=== PATIENT | male | born 1950 | race Caucasian/White ===

== ENCOUNTER → 2017-12-29 02:49 | Outpatient (CLI) | payer MEDICARE, OTHER, SELFPAY ==
[2017-12-29 09:17] LABS: INR 2.7 (1.0-3.5); Prothrombin Time 25.2 sec (9.3-10.8)
== END ==
PROVIDERS: PCP Emergency Medicine; Visit Provider Emergency Medicine
DX: I48.91 Unspecified atrial fibrillation (principal); Z79.01 Long term (current) use of anticoagulants
CPT/HCPCS: 36415; 85610

== ENCOUNTER 2018-01-27 03:03 | Outpatient (CLI) | payer MEDICARE, SELFPAY ==
[2018-01-27 14:25] LABS: INR 2.7 (1.0-3.5); Prothrombin Time 25.2 sec (9.3-10.8)
== END 2018-01-27 03:23 ==
PROVIDERS: PCP Emergency Medicine; Visit Provider Emergency Medicine
DX: I48.91 Unspecified atrial fibrillation (principal); Z79.01 Long term (current) use of anticoagulants
CPT/HCPCS: 36415; 85610

== ENCOUNTER 2018-02-23 02:39 | Outpatient (CLI) | payer MEDICARE, SELFPAY ==
[2018-02-23 13:58] LABS: INR 2.7 (1.0-3.5); Prothrombin Time 25.2 sec (9.3-10.8)
== END 2018-02-23 02:59 ==
PROVIDERS: PCP Emergency Medicine; Visit Provider Emergency Medicine
DX: I48.91 Unspecified atrial fibrillation (principal); Z79.01 Long term (current) use of anticoagulants
CPT/HCPCS: 36415; 85610

== ENCOUNTER 2018-03-30 01:53 | Outpatient (CLI) | payer MEDICARE, SELFPAY ==
[2018-03-30 10:20] LABS: INR 2.3 (1.0-3.5); Prothrombin Time 21.9 sec (9.3-10.8)
== END 2018-03-30 02:13 ==
PROVIDERS: PCP Emergency Medicine; Visit Provider Emergency Medicine
DX: I48.91 Unspecified atrial fibrillation (principal); Z79.01 Long term (current) use of anticoagulants
CPT/HCPCS: 36415; 85610

== ENCOUNTER 2018-04-27 01:31 | Outpatient (CLI) | payer MEDICARE, SELFPAY ==
[2018-04-27 11:16] LABS: INR 2.9 (1.0-3.5); Prothrombin Time 26.9 sec (9.3-10.8)
== END 2018-04-27 01:51 ==
PROVIDERS: PCP Emergency Medicine; Visit Provider Emergency Medicine
DX: I48.91 Unspecified atrial fibrillation (principal); Z79.01 Long term (current) use of anticoagulants
CPT/HCPCS: 36415; 85610

== ENCOUNTER 2018-05-25 01:40 | Outpatient (CLI) | payer MEDICARE, SELFPAY ==
[2018-05-25 10:54] LABS: INR 2.2 (1.0-3.5); Prothrombin Time 21.7 sec (9.3-11.0)
== END 2018-05-25 02:00 ==
PROVIDERS: PCP Emergency Medicine; Visit Provider Emergency Medicine
DX: I48.91 Unspecified atrial fibrillation (principal); Z79.01 Long term (current) use of anticoagulants
CPT/HCPCS: 36415; 85610

== ENCOUNTER 2018-06-09 11:28 | Outpatient (CLI) | payer MEDICARE, SELFPAY ==
[2018-06-09 13:32] LABS: Hemoglobin A1C 6.7 % (4.5-6.2)
[2018-06-09 13:33] LABS: C-Reactive Protein 0.31 mg/dL (0.0-0.3); TSH 1.78 uIU/mL (0.358-3.74)
== END 2018-06-09 11:48 ==
PROVIDERS: PCP Emergency Medicine; Visit Provider Emergency Medicine
DX: E03.9 Hypothyroidism, unspecified (principal); E11.9 Type 2 diabetes mellitus without complications; G89.29 Other chronic pain
CPT/HCPCS: 36415; 83036; 84443; 86140

== ENCOUNTER 2018-06-23 01:36 | Outpatient (CLI) | payer MEDICARE, SELFPAY ==
[2018-06-23 10:42] LABS: INR 2.4 (0.9-1.1); Prothrombin Time 24.5 sec (9.3-11.0)
== END 2018-06-23 01:56 ==
PROVIDERS: PCP Emergency Medicine; Visit Provider Emergency Medicine
DX: I48.91 Unspecified atrial fibrillation (principal); Z79.01 Long term (current) use of anticoagulants
CPT/HCPCS: 36415; 85610

== ENCOUNTER 2018-08-18 01:49 | Outpatient (CLI) | payer MEDICARE, SELFPAY ==
[2018-08-18 11:47] LABS: INR 2.6 (0.9-1.1); Prothrombin Time 26.3 sec (9.3-11.0)
[2018-08-18 11:58] LABS: Anion Gap 9.3 mmol/L (3-11); BUN 21 mg/dL (7-18); CO2 29.7 mmol/L (21.0-32.0); CREATININE 1.06 mg/dL (0.70-1.30); Calcium 8.9 mg/dL (8.5-10.1); Chloride 101 mmol/L (98-107); Glucose 174 mg/dL (70-100); Potassium 4.7 mmol/L (3.5-5.1); Sodium 140 mmol/L (136-145)
[2018-08-18 12:13] LABS: Hemoglobin A1C 6.7 % (4.5-6.2)
== END 2018-08-18 02:09 ==
PROVIDERS: PCP Emergency Medicine; Visit Provider Emergency Medicine
DX: I48.91 Unspecified atrial fibrillation (principal); Z79.01 Long term (current) use of anticoagulants; I10 Essential (primary) hypertension; E11.9 Type 2 diabetes mellitus without complications
CPT/HCPCS: 36415; 80048; 83036; 85610

== ENCOUNTER 2018-09-15 02:32 | Outpatient (CLI) | payer MEDICARE, SELFPAY ==
[2018-09-15 11:32] LABS: INR 2.8 (0.9-1.1); Prothrombin Time 27.8 sec (9.3-11.0)
== END 2018-09-15 02:52 ==
PROVIDERS: PCP Emergency Medicine; Visit Provider Emergency Medicine
DX: I48.91 Unspecified atrial fibrillation (principal); Z79.01 Long term (current) use of anticoagulants
CPT/HCPCS: 36415; 85610

== ENCOUNTER 2018-10-13 01:04 | Outpatient (CLI) | payer MEDICARE, SELFPAY ==
[2018-10-13 10:09] LABS: INR 2.4 (0.9-1.1); Prothrombin Time 24.2 sec (9.3-11.0)
== END 2018-10-13 01:24 ==
PROVIDERS: PCP Emergency Medicine; Visit Provider Emergency Medicine
DX: I48.91 Unspecified atrial fibrillation (principal); Z79.01 Long term (current) use of anticoagulants
CPT/HCPCS: 36415; 85610

== ENCOUNTER 2018-11-10 01:44 | Outpatient (CLI) | payer MEDICARE, SELFPAY ==
[2018-11-10 10:50] LABS: INR 2.8 (0.9-1.1); Prothrombin Time 28.7 sec (9.3-11.0)
== END 2018-11-10 02:04 ==
PROVIDERS: PCP Emergency Medicine; Visit Provider Emergency Medicine
DX: I48.91 Unspecified atrial fibrillation (principal); Z79.01 Long term (current) use of anticoagulants
CPT/HCPCS: 36415; 85610

== ENCOUNTER 2018-12-08 02:29 | Outpatient (CLI) | payer MEDICARE, SELFPAY ==
[2018-12-08 10:44] LABS: INR 2.1 (0.9-1.1); Prothrombin Time 21.3 sec (9.3-11.0)
== END 2018-12-08 02:49 ==
PROVIDERS: PCP Emergency Medicine; Visit Provider Emergency Medicine
DX: I48.91 Unspecified atrial fibrillation (principal); Z79.01 Long term (current) use of anticoagulants
CPT/HCPCS: 36415; 85610

== ENCOUNTER 2019-01-05 02:16 | Outpatient (CLI) | payer MEDICARE, SELFPAY ==
[2019-01-05 10:30] LABS: INR 2.6 (0.9-1.1); Prothrombin Time 26.6 sec (9.3-11.0)
== END 2019-01-05 02:36 ==
PROVIDERS: PCP Emergency Medicine; Visit Provider Emergency Medicine
DX: I48.91 Unspecified atrial fibrillation (principal); Z79.01 Long term (current) use of anticoagulants
CPT/HCPCS: 36415; 85610

== ENCOUNTER 2019-02-02 00:44 | Outpatient (CLI) | payer MEDICARE, SELFPAY ==
[2019-02-02 12:05] LABS: INR 2.7 (0.9-1.1); Prothrombin Time 27.3 sec (9.3-11.0)
== END 2019-02-02 01:04 ==
PROVIDERS: PCP Emergency Medicine; Visit Provider Emergency Medicine
DX: I48.91 Unspecified atrial fibrillation (principal); Z79.01 Long term (current) use of anticoagulants
CPT/HCPCS: 36415; 85610

== ENCOUNTER 2019-02-17 01:27 | Outpatient (CLI) | payer MEDICARE, SELFPAY ==
[2019-02-17 10:39] LABS: Hemoglobin A1C 6.5 % (4.5-6.2)
[2019-02-17 10:45] LABS: INR 2.5 (0.9-1.1); Prothrombin Time 24.6 sec (9.3-11.0)
[2019-02-17 11:52] LABS: TSH 2.19 uIU/mL (0.36-3.74)
== END 2019-02-17 01:47 ==
PROVIDERS: PCP Emergency Medicine; Visit Provider Emergency Medicine
DX: E03.9 Hypothyroidism, unspecified (principal); E11.9 Type 2 diabetes mellitus without complications; I48.2 Chronic atrial fibrillation; Z79.01 Long term (current) use of anticoagulants
CPT/HCPCS: 36415; 83036; 84443; 85610

== ENCOUNTER 2019-03-16 02:09 | Outpatient (CLI) | payer MEDICARE, SELFPAY ==
[2019-03-16 11:46] LABS: INR 2.4 (0.9-1.1)
== END 2019-03-16 02:29 ==
PROVIDERS: PCP Emergency Medicine; Visit Provider Emergency Medicine
DX: I48.91 Unspecified atrial fibrillation (principal); Z79.01 Long term (current) use of anticoagulants
CPT/HCPCS: 36415; 85610

== ENCOUNTER 2019-04-13 01:53 | Outpatient (CLI) | payer MEDICARE, SELFPAY ==
[2019-04-13 10:50] LABS: INR 3.5 (0.9-1.1); Prothrombin Time 33.8 sec (9.3-11.0)
== END 2019-04-13 02:13 ==
PROVIDERS: PCP Emergency Medicine; Visit Provider Emergency Medicine
DX: I48.91 Unspecified atrial fibrillation (principal); Z79.01 Long term (current) use of anticoagulants
CPT/HCPCS: 36415; 85610

== ENCOUNTER 2019-04-20 01:35 | Outpatient (CLI) | payer MEDICARE, SELFPAY ==
[2019-04-20 11:27] LABS: INR 2.8 (0.9-1.1); Prothrombin Time 27.1 sec (9.3-11.0)
== END 2019-04-20 01:55 ==
PROVIDERS: PCP Emergency Medicine; Visit Provider Emergency Medicine
DX: I48.91 Unspecified atrial fibrillation (principal); Z79.01 Long term (current) use of anticoagulants
CPT/HCPCS: 36415; 85610

== ENCOUNTER 2019-05-18 03:59 | Outpatient (CLI) | payer MEDICARE, SELFPAY ==
[2019-05-18 10:50] LABS: INR 2.6 (0.9-1.1); Prothrombin Time 25.7 sec (9.3-11.0)
== END 2019-05-18 04:19 ==
PROVIDERS: PCP Emergency Medicine; Visit Provider Emergency Medicine
DX: I48.91 Unspecified atrial fibrillation (principal); Z79.01 Long term (current) use of anticoagulants
CPT/HCPCS: 36415; 85610

== ENCOUNTER → 2019-06-04 10:11 | Outpatient (BNVA) | payer MEDICARE, SELFPAY | PROVIDERS: PCP Emergency Medicine; Referring Provider Emergency Medicine; Visit Provider Physical Therapy Assistant | DX: Z12.11 Encounter for screening for malignant neoplasm of colon (principal); Z86.010 Personal history of colon polyps; Z79.01 Long term (current) use of anticoagulants; I48.20 Chronic atrial fibrillation, unspecified; J44.9 Chronic obstructive pulmonary disease, unspecified; E11.9 Type 2 diabetes mellitus without complications; I10 Essential (primary) hypertension; Z79.84 Long term (current) use of oral hypoglycemic drugs; Z87.891 Personal history of nicotine dependence ==

== ENCOUNTER 2019-06-15 01:55 | Outpatient (CLI) | payer MEDICARE, SELFPAY ==
[2019-06-15 11:50] LABS: INR 1.7 (0.9-1.1); Prothrombin Time 17.2 sec (9.3-11.0)
== END 2019-06-15 02:15 ==
PROVIDERS: PCP Emergency Medicine; Visit Provider Emergency Medicine
DX: I48.91 Unspecified atrial fibrillation (principal); Z79.01 Long term (current) use of anticoagulants
CPT/HCPCS: 36415; 85610

== ENCOUNTER 2019-06-18 07:39 | Day surgery (SDC) | payer MEDICARE, SELFPAY ==
[2019-06-18 08:02] VITALS: BP 130/75; PULSE 70; RESP 18; TEMP 36.5; O2SAT 94
[2019-06-18] MEDS: Lactated Ringers 1,000 ML 80 ML IV (08:19)
--- NOTE | 2019-06-18 09:25 | W.COLOREPORT ---
Date of service: 06/18/19 Time of Service: 09:25 Colonoscopy Report Date of procedure: 06/18/19 Pre-op diagnosis general: CRC screen Post-op diagnosis procedure note: other (diverticula ) Procedure: ce Surgeon: Destinee Arabmula Anesthesia proc note operative: GETA Estimated blood loss (mL): 0 Pathology: none sent Complications: None Disposition: same day Prep: Miralax/Dulcolax Procedure Description: After informed consent was obtained the patient was taken to the procedure room and placed in a left decubitous position. Monitors were applied and a time out was done. The patients name, date of , procedure, allergies to medications and metal in their body was reviewed. The patient was then sedated. Once sedated and comfortable a rectal exam was done. External exam was normal. Internal exam revealed a normal sphincter tone and no palpable masses. The prostate not palpable. The scope was then introduced and retrofelexed. no internal hemorrhoids were identified. The scope was then advanced to the cecum w/ out difficulty. The TI and appendiceal orifice were identified. The prep was poor- he still had formed adn thick liquid stool. No gross lesions or lg polyps identified. lesions less than 1cm would have been missed. he does have many lg mouthed diverticula in the left colon. The scope was removed and the patient was woken up and taken back to Same day surgery in stable condition. The patient tolerated the procedure well and there were no immediate complications. Follow up: The patient does not require anymore scopes, unless they develop changes in bowel habits or other new gastrointestinal complaints.
--- NOTE | 2019-06-18 09:34 | W.PM.DSUDISC ---
Discharge Plan Disposition Patient Disposition: HOME Condition: Good Discharge Details Reason For Visit: colon scope Attending Provider: Destinee Arambula Primary Care Provider: Anson Arboleda Home Meds and New Rx's Prescriptions: No Action polyethylene glycol 3350 17 gram/dose powder 238 g PO ONCE Qty: 238 RF: 0 bisacodyl [Dulcolax (bisacodyl)] 5 mg tablet,delayed release (DR/EC) 5 mg PO ONCE Qty: 4 RF: 0 sildenafil [Viagra] 100 MG tablet 1 tab PO PRN RF: 0 omega-3 fatty acids-fish oil 1 EACH capsule 1 cap PO QPM RF: 0 (DME) blood-glucose meter 1 EACH misc 1 ea Miscellaneous ONCE Qty: 1 RF: 0 (DME) Blood Glucose Test 1 EACH strip 1 ea Miscellaneous DAILY Qty: 100 RF: 4 (DME) lancets 1 EACH misc 1 ea Miscellaneous DAILY Qty: 100 RF: 4 metformin 1,000 mg tablet 1,000 mg PO BID Qty: 180 RF: 3 metoprolol succinate [Toprol XL] 200 mg tablet extended release 24 hr 200 mg PO DAILY Qty: 90 RF: 4 losartan [Cozaar] 50 mg tablet 50 mg PO DAILY Qty: 90 RF: 3 warfarin [Coumadin] 5 mg tablet 5 mg PO DIRECTED Qty: 100 RF: 6 pravastatin 40 mg tablet 40 mg PO DAILY Qty: 90 RF: 3 duloxetine 60 mg capsule,delayed release(DR/EC) 60 mg PO DAILY Qty: 90 RF: 4 levothyroxine [Synthroid] 25 mcg tablet 25 mcg PO DAILY Qty: 90 RF: 3 pregabalin [Lyrica] 200 mg capsule 200 mg PO TID Qty: 270 RF: 3 amitriptyline 25 mg tablet 25 mg PO HS Qty: 90 RF: 3 morphine [MS Contin] 30 mg tablet extended release 30 mg PO Q12H PRN MDD 2 tabs Qty: 60 RF: 0 Discharge Instructions Instructions: Diverticulosis (GEN), Diverticulosis Diet (GEN), High Fiber Diet (GEN) Additional Instructions: Findings: diverticula ok to resume coumadin today Follow up:PCP as needed. Does not need any further scopes Please call if you develop: fevers >101.5 Nausea or Vomiting Abdominal pain that is not transient DAY SURGERY UNIT POST COLONOSCOPY INSTRUCTIONS 1. Because there will be medication in your system for the next 24 hours, you may feel a little sleepy. Your coordination will be affected. Therefore: a. Do not drive or operate dangerous equipment for 24 hours. b. Do not drink alcohol beverages for 24 hours (not even beer). c. Plan to go home and rest for the day. 2. Generally there are no restrictions on your activity after a day or so has gone by, but you may feel a bit fatigued for a few days. 3 After you arrive home you may have a light meal and return to a normal diet as you can tolerate it without feeling sick to your stomach. 4. After surgery, you may feel pain or discomfort. This should be only transient, but if it persists please contact your doctor. 5. If there are any questions regarding the findings of your procedure, please feel free to contact your doctor. 6. If you are unable to contact your doctor with a problem, contact the hospital at [phone]. 7. Continue all your regular medications unless directed otherwise. I understand the above instructions and have no questions. Signature of Patient or Responsible Adult Escort Date/Time Name of Responsible Adult Escort Signature of Nurse Date/Time Activity:: No heavy lifting over 20 pounds or strenuous activity x24 hours Diet:: Small light meals x24 hours Discharge Orders Discharge Orders: Discharge Order (Routine); Ordered 06/18/19 Ordered By: Destinee Arambula DS: Diagnosis Discharge Diagnosis (1) Diverticula of colon: Status: Acute
[2019-06-18 10:14] VITALS: BP 105/69; PULSE 63; RESP 18; TEMP 36.3; O2SAT 94
== END 2019-06-18 10:33 | disposition home or self-care (01) ==
PROVIDERS: PCP Emergency Medicine; Visit Provider Surgery
PROC: 0DJD8ZZ Inspection of Lower Intestinal Tract, Via Natural or Artificial Opening Endoscopic (ICD-10-PCS; CPT 45378; principal; 2019-06-18 09:00)
DX: Z12.11 Encounter for screening for malignant neoplasm of colon (principal); Z87.19 Personal history of other diseases of the digestive system; K57.30 Diverticulosis of large intestine without perforation or abscess without bleeding; J44.9 Chronic obstructive pulmonary disease, unspecified; Z11.9 Encounter for screening for infectious and parasitic diseases, unspecified; Z79.84 Long term (current) use of oral hypoglycemic drugs; I10 Essential (primary) hypertension
CPT/HCPCS: G0121; J2001; J2704

== ENCOUNTER 2019-06-25 00:08 | Outpatient (CLI) | payer MEDICARE, SELFPAY ==
[2019-06-25 11:03] LABS: INR 1.9 (0.9-1.1); Prothrombin Time 18.4 sec (9.3-11.0)
== END 2019-06-25 00:28 ==
PROVIDERS: PCP Emergency Medicine; Visit Provider Emergency Medicine
DX: I48.91 Unspecified atrial fibrillation (principal); Z79.01 Long term (current) use of anticoagulants
CPT/HCPCS: 36415; 85610

== ENCOUNTER 2019-07-08 03:12 | Outpatient (CLI) | payer MEDICARE, SELFPAY ==
[2019-07-08 10:21] LABS: INR 2.2 (0.9-1.1); Prothrombin Time 21.4 sec (9.3-11.0)
== END 2019-07-08 03:32 ==
PROVIDERS: PCP Emergency Medicine; Visit Provider Emergency Medicine
DX: I48.91 Unspecified atrial fibrillation (principal); Z79.01 Long term (current) use of anticoagulants
CPT/HCPCS: 36415; 85610

== ENCOUNTER 2019-08-03 01:48 | Outpatient (CLI) | payer MEDICARE, SELFPAY ==
[2019-08-03 11:45] LABS: INR 2.7 (0.9-1.1); Prothrombin Time 26.3 sec (9.3-11.0)
== END 2019-08-03 02:08 ==
PROVIDERS: PCP Emergency Medicine; Visit Provider Emergency Medicine
DX: I48.91 Unspecified atrial fibrillation (principal); Z79.01 Long term (current) use of anticoagulants
CPT/HCPCS: 36415; 85610

== ENCOUNTER 2019-11-30 02:16 | Outpatient (CLI) | payer MEDICARE, SELFPAY ==
[2019-11-30 13:26] LABS: INR 2.8 (0.9-1.1); Prothrombin Time 27.4 sec (9.3-11.0)
== END 2019-11-30 02:36 ==
PROVIDERS: PCP Emergency Medicine; Visit Provider Emergency Medicine
DX: I48.91 Unspecified atrial fibrillation (principal); Z79.01 Long term (current) use of anticoagulants
CPT/HCPCS: 36415; 85610

== ENCOUNTER 2020-01-04 02:31 | Outpatient (CLI) | payer MEDICARE, SELFPAY ==
[2020-01-04 10:36] LABS: INR 2.7 (0.9-1.1); Prothrombin Time 26.7 sec (9.3-11.0)
[2020-01-04 10:38] LABS: Hemoglobin A1C 6.4 % (3.8-5.6)
[2020-01-04 11:21] LABS: Anion Gap 7.3 mmol/L (3-11); BUN 20 mg/dL (7-18); CO2 30.7 mmol/L (21.0-32.0); CREATININE 0.92 mg/dL (0.70-1.30); Calcium 8.7 mg/dL (8.5-10.1); Chloride 103 mmol/L (98-107); Glucose 108 mg/dL (74-106); Sodium 141 mmol/L (136-145)
== END 2020-01-04 02:51 ==
PROVIDERS: PCP Emergency Medicine; Visit Provider Emergency Medicine
DX: I48.91 Unspecified atrial fibrillation (principal); Z79.01 Long term (current) use of anticoagulants
CPT/HCPCS: 36415; 80048; 83036; 85610

== ENCOUNTER 2020-03-07 01:43 | Outpatient (CLI) | payer MEDICARE, SELFPAY ==
[2020-03-07 10:21] LABS: Prothrombin Time 24.1 sec (9.3-11.0)
[2020-03-07 10:30] LABS: INR 2.4 (0.9-1.1)
== END 2020-03-07 02:03 ==
PROVIDERS: PCP Emergency Medicine; Visit Provider Emergency Medicine
DX: I48.91 Unspecified atrial fibrillation (principal); Z79.01 Long term (current) use of anticoagulants
CPT/HCPCS: 36415; 85610

== ENCOUNTER 2020-04-06 02:19 | Outpatient (CLI) | payer MEDICARE, SELFPAY ==
[2020-04-06 10:35] LABS: INR 2.6 (0.9-1.1); Prothrombin Time 25.2 sec (9.3-11.0)
== END 2020-04-06 02:39 ==
PROVIDERS: PCP Emergency Medicine; Visit Provider Emergency Medicine
DX: I48.91 Unspecified atrial fibrillation (principal); Z79.01 Long term (current) use of anticoagulants
CPT/HCPCS: 36415; 85610

== ENCOUNTER 2020-05-05 04:57 | Outpatient (CLI) | payer MEDICARE, SELFPAY ==
[2020-05-05 10:41] LABS: INR 1.8 (0.9-1.1); Prothrombin Time 18.3 sec (9.3-11.0)
== END 2020-05-05 05:17 ==
PROVIDERS: PCP Emergency Medicine; Visit Provider Emergency Medicine
DX: I48.91 Unspecified atrial fibrillation (principal); Z79.01 Long term (current) use of anticoagulants
CPT/HCPCS: 36415; 85610

== ENCOUNTER 2020-06-20 03:57 | Outpatient (CLI) | payer MEDICARE, SELFPAY ==
[2020-06-20 10:57] LABS: INR 2.6 (0.9-1.1); Prothrombin Time 25.2 sec (9.3-11.0)
[2020-06-20 11:07] LABS: Hemoglobin A1C 6.4 % (<5.7)
[2020-06-20 12:08] LABS: Anion Gap 6.1 mmol/L (3-11); BUN 18 mg/dL (7-18); CO2 28.9 mmol/L (21.0-32.0); CREATININE 0.99 mg/dL (0.70-1.30); Calcium 8.7 mg/dL (8.5-10.1); Calculated LDL 61 mg/dL (<100); Chloride 102 mmol/L (98-107); Cholesterol 137 mg/dL (<200); Glucose 104 mg/dL (74-106); HDL Cholesterol 36 mg/dL (40-60); Potassium 5.1 mmol/L (3.5-5.1); Sodium 137 mmol/L (136-145); TSH 3.34 uIU/mL (0.36-3.74); Triglyceride 202 mg/dL (<150)
== END 2020-06-20 04:17 ==
PROVIDERS: PCP Emergency Medicine; Visit Provider Emergency Medicine
DX: I10 Essential (primary) hypertension (principal); E11.9 Type 2 diabetes mellitus without complications; E03.9 Hypothyroidism, unspecified; I48.91 Unspecified atrial fibrillation; Z79.01 Long term (current) use of anticoagulants
CPT/HCPCS: 36415; 80048; 80061; 83036; 84443; 85610

== ENCOUNTER 2020-07-25 03:07 | Outpatient (CLI) | payer MEDICARE, SELFPAY ==
[2020-07-25 10:43] LABS: INR 2.6 (0.9-1.1); Prothrombin Time 25.8 sec (9.3-11.0)
== END 2020-07-25 03:08 | disposition home or self-care (01) ==
LOC: LBO 03:07
PROVIDERS: PCP Emergency Medicine; Visit Provider Emergency Medicine
DX: I48.91 Unspecified atrial fibrillation (principal); Z79.01 Long term (current) use of anticoagulants
CPT/HCPCS: 36415; 85610

== ENCOUNTER 2020-08-29 04:03 | Outpatient (CLI) | payer MEDICARE, SELFPAY ==
[2020-08-29 09:38] LABS: INR 2.3 (0.9-1.1); Prothrombin Time 22.6 sec (9.3-11.0)
== END 2020-08-29 04:04 | disposition home or self-care (01) ==
LOC: LBO 04:03
PROVIDERS: PCP Emergency Medicine; Visit Provider Emergency Medicine
DX: I48.91 Unspecified atrial fibrillation (principal); Z79.01 Long term (current) use of anticoagulants
CPT/HCPCS: 36415; 85610

== ENCOUNTER 2020-09-27 04:29 | Outpatient (CLI) | payer MEDICARE, SELFPAY ==
[2020-09-27 10:30] LABS: INR 2.6 (0.9-1.1); Prothrombin Time 25.5 sec (9.3-11.0)
== END 2020-09-27 04:30 | disposition home or self-care (01) ==
LOC: LBO 04:29
PROVIDERS: PCP Emergency Medicine; Visit Provider Emergency Medicine
DX: I48.91 Unspecified atrial fibrillation (principal); Z79.01 Long term (current) use of anticoagulants
CPT/HCPCS: 36415; 85610

== ENCOUNTER 2020-11-01 02:40 | Outpatient (CLI) | payer MEDICARE, SELFPAY ==
[2020-11-01 10:24] LABS: INR 2.9 (0.9-1.1); Prothrombin Time 28.6 sec (9.3-11.0)
== END 2020-11-01 02:41 | disposition home or self-care (01) ==
LOC: LBO 02:40
PROVIDERS: PCP Emergency Medicine; Visit Provider Emergency Medicine
DX: I48.91 Unspecified atrial fibrillation (principal); Z79.01 Long term (current) use of anticoagulants
CPT/HCPCS: 36415; 85610

== ENCOUNTER 2020-11-29 02:24 | Outpatient (CLI) | payer MEDICARE, SELFPAY ==
[2020-11-29 12:59] LABS: INR 1.9 (0.9-1.1); Prothrombin Time 18.7 sec (9.3-11.0)
== END 2020-11-29 02:25 | disposition home or self-care (01) ==
LOC: LOS 02:24
PROVIDERS: PCP Emergency Medicine; Visit Provider Emergency Medicine
DX: I48.91 Unspecified atrial fibrillation (principal); Z79.01 Long term (current) use of anticoagulants
CPT/HCPCS: 36415; 85610

== ENCOUNTER 2021-02-21 11:15 | Outpatient (CLI) | payer MEDICARE, SELFPAY ==
[2021-02-21 13:09] LABS: Source Nasal/Nares
[2021-02-21 18:14] LABS: COVID-19 PCR Negative (Negative)
== END 2021-02-21 11:16 | disposition home or self-care (01) ==
LOC: LBO 11:15
PROVIDERS: PCP Emergency Medicine; Visit Provider Podiatrist
DX: Z20.822 Contact with and (suspected) exposure to COVID-19 (principal); Z01.818 Encounter for other preprocedural examination
CPT/HCPCS: 87635

== ENCOUNTER 2021-02-23 07:11 | Day surgery (SDC) | payer MEDICARE, SELFPAY ==
[2021-02-23 07:43] VITALS: BP 128/71; PULSE 60; RESP 16; TEMP 35.9; O2SAT 95
--- NOTE | 2021-02-23 10:12 | W.PM.DSUDISC ---
Discharge Plan Disposition Patient Disposition: HOME Condition: Good Discharge Details Reason For Visit: Debridement right heel with epi fix application Attending Provider: José Miguel Anguiano Primary Care Provider: Anson Arboleda Home Meds and New Rx's Prescriptions: Continued (DME) Skintegrity Hydrogel Dressing 4 X 4 bandage See Rx Instructions .ROUTE .MEDSUPPLY Qty: 30 RF: 0 duloxetine 60 mg capsule,delayed release(DR/EC) 60 mg PO DAILY RF: 0 bisacodyl [Dulcolax (bisacodyl)] 5 mg tablet,delayed release (DR/EC) 5 mg PO ONCE Qty: 4 RF: 0 pregabalin [Lyrica] 100 mg capsule 100 mg PO TID Qty: 180 RF: 3 Hold Instructions: Home Medication placed on hold at Doctor's office sildenafil [Viagra] 100 MG tablet 1 tab PO PRN RF: 0 omega-3 fatty acids-fish oil 1 EACH capsule 1 cap PO QPM RF: 0 (DME) blood-glucose meter 1 EACH misc 1 ea Miscellaneous ONCE Qty: 1 RF: 0 (DME) Blood Glucose Test 1 EACH strip 1 ea Miscellaneous DAILY Qty: 100 RF: 4 (DME) lancets 1 EACH misc 1 ea Miscellaneous DAILY Qty: 100 RF: 4 metoprolol succinate [Toprol XL] 200 mg tablet extended release 24 hr 200 mg PO DAILY Qty: 90 RF: 4 warfarin 5 mg tablet 5 mg PO DIRECTED Qty: 100 RF: 6 levothyroxine [Synthroid] 25 mcg tablet 25 mcg PO DAILY Qty: 90 RF: 3 metformin 1,000 mg tablet 1,000 mg PO BID Qty: 180 RF: 3 losartan [Cozaar] 50 mg tablet 50 mg PO DAILY Qty: 90 RF: 3 pravastatin 40 mg tablet 40 mg PO DAILY Qty: 90 RF: 3 morphine 30 mg tablet extended release 30 mg PO Q12H MDD 2 pills Qty: 60 RF: 0 Discharge Instructions Activity:: Elevate Remove Dressings/Wound Care:: Do Not Remove Shower/Bathe:: Cover Diet:: Normal Diet Discharge Orders Discharge Orders: Discharge Order (Routine); Ordered 02/23/21 Ordered By: José Miguel Anguiano DS: Diagnosis Discharge Diagnosis (1) Open wound of right heel: Status: Acute
--- NOTE | 2021-02-23 10:14 | ROE_ITS ---
Date of service: 02/23/21 Time of Service: 10:14 Operative Note Operative Note DATE OF PROCEDURE: 02/23/21 PRE-OP DIAGNOSIS: Chronic wound right heel POST-OP DIAGNOSIS: same PROCEDURE: Debridement full-thickness wound right heel with epi fix application SURGEON: José Miguel Anguiano ANESTHESIA TYPE: Other Refer to Anesthesia Record ESTIMATED BLOOD LOSS: 1 PATHOLOGY: none sent TOURNIQUET TIME: 0 COMPLICATIONS: None Patient was transported to: same day Patient's condition: stable Implants: Epi fix graft Indications: 70-year-old male with a chronic wound to the right heel 9 months duration which has recently failed to show signs of improvement, stagnant wound. He is now being brought to the OR for debridement of the wound with application of a epifix graft. He understands risk and complications including the need for serial graft applications and the potential for infection requiring more aggressive surgical intervention. All questions have been answered. Informed consent has been obtained. Procedure Description: Acosta was brought to the operative suite placed in the supine position with the right foot is prepped and draped in the usual sterile podiatric fashion utilizing normal saline for the wound wash. Timeout was performed for safe surgery. With a #10 scalpel the wound was sharply debrided removing the hypertrophic border and devitalized tissue around the base. Full- thickness debridement was performed centrally partial thickness around the periphery. After debridement the wound measured 8 mm in length by 6 mm in width and was 3 to 4 mm in depth. The base of the wound appeared viable. There was minimal bleeding around the wound margins which was controlled with compression. A 18 mm epifix graft was then applied to the wound and covered with Adaptic gauze and Kerlix rolls x2. Will keep the dressings intact, clean and dry and he will remain in a surgical shoe. He does have a rolling walker available to him at home which he will use to help offload the right heel and minimize activities. All questions have been answered in detail.
[2021-02-23 10:15] VITALS: BP 112/72; PULSE 64; RESP 16; TEMP 36; O2SAT 97
== END 2021-02-23 10:45 | disposition home or self-care (01) ==
PROVIDERS: PCP Emergency Medicine; Visit Provider Podiatrist
PROC: (CPT 15275; principal; 2021-02-23 09:30)
DX: L97.418 Non-pressure chronic ulcer of right heel and midfoot with other specified severity (principal)
CPT/HCPCS: 15275; Q4186

== ENCOUNTER 2021-02-28 02:14 | Outpatient (CLI) | payer MEDICARE, SELFPAY ==
[2021-02-28 11:05] LABS: Source Nasal/Nares
[2021-02-28 15:49] LABS: COVID-19 PCR Negative (Negative)
== END 2021-02-28 02:15 | disposition home or self-care (01) ==
LOC: LBO 02:14
PROVIDERS: PCP Emergency Medicine; Visit Provider Podiatrist
DX: Z20.822 Contact with and (suspected) exposure to COVID-19 (principal); Z01.818 Encounter for other preprocedural examination
CPT/HCPCS: 87635

== ENCOUNTER 2021-03-02 06:13 | Day surgery (SDC) | payer MEDICARE, SELFPAY ==
[2021-03-02 06:23] VITALS: BP 119/77; PULSE 65; RESP 16; TEMP 36.1; O2SAT 96
--- NOTE | 2021-03-02 07:48 | W.PM.DSUDISC ---
Discharge Plan Disposition Patient Disposition: HOME Condition: Good Discharge Details Reason For Visit: CHRONIC (R) HEEL WOUND Attending Provider: José Miguel Anguiano Primary Care Provider: Anson Arboleda Home Meds and New Rx's Prescriptions: Continued (DME) Skintegrity Hydrogel Dressing 4 X 4 bandage See Rx Instructions .ROUTE .MEDSUPPLY Qty: 30 RF: 0 duloxetine 60 mg capsule,delayed release(DR/EC) 60 mg PO DAILY RF: 0 pregabalin [Lyrica] 100 mg capsule 100 mg PO TID Qty: 180 RF: 3 Hold Instructions: Home Medication placed on hold at Doctor's office sildenafil [Viagra] 100 MG tablet 1 tab PO PRN RF: 0 omega-3 fatty acids-fish oil 1 EACH capsule 1 cap PO QPM RF: 0 (DME) blood-glucose meter 1 EACH misc 1 ea Miscellaneous ONCE Qty: 1 RF: 0 (DME) Blood Glucose Test 1 EACH strip 1 ea Miscellaneous DAILY Qty: 100 RF: 4 (DME) lancets 1 EACH misc 1 ea Miscellaneous DAILY Qty: 100 RF: 4 metoprolol succinate [Toprol XL] 200 mg tablet extended release 24 hr 200 mg PO DAILY Qty: 90 RF: 4 warfarin 5 mg tablet 5 mg PO DIRECTED Qty: 100 RF: 6 levothyroxine [Synthroid] 25 mcg tablet 25 mcg PO DAILY Qty: 90 RF: 3 metformin 1,000 mg tablet 1,000 mg PO BID Qty: 180 RF: 3 losartan [Cozaar] 50 mg tablet 50 mg PO DAILY Qty: 90 RF: 3 pravastatin 40 mg tablet 40 mg PO DAILY Qty: 90 RF: 3 morphine 30 mg tablet extended release 30 mg PO Q12H MDD 2 pills Qty: 60 RF: 0 Discharge Instructions Activity:: Activity as Tolerated Remove Dressings/Wound Care:: Do Not Remove Shower/Bathe:: Cover Diet:: Carb Counting Discharge Orders Discharge Orders: Discharge Order (Routine); Ordered 03/02/21 Ordered By: José Miguel Anguiano DS: Diagnosis Discharge Diagnosis (1) Open wound of right heel: Status: Acute
--- NOTE | 2021-03-02 07:49 | W.PM.OP ---
Date of service: 03/02/21 Time of Service: 07:50 Operative Note Operative Note DATE OF PROCEDURE: 03/02/21 PRE-OP DIAGNOSIS: Chronic ulcer right heel PROCEDURE: Debridement wound right heel with epi fix application SURGEON: José Miguel Anguiano ANESTHESIA TYPE: Other Refer to Anesthesia Record ESTIMATED BLOOD LOSS: 1 PATHOLOGY: none sent TOURNIQUET TIME: 0 COMPLICATIONS: None Patient was transported to: same day Patient's condition: stable Implants: 18 mm epi fix Indications: 70-year-old male with recalcitrant ulceration affecting the right heel for serial debridement and application of epi Procedure Description: Acosta was brought to the operative suite placed in the supine position. Timeout was performed for safe surgery. The right foot was washed with normal saline. An ulceration is appreciated at the plantar posterior aspect of the right heel measuring 5 mm x 3 mm x 2 to 3 mm in depth. The wound is carmen compared to previous examination. There is no active sign of infection. The base of the wound appears a little pale with slime appreciated. Hypertrophic border is seen. No undermining was appreciated. With a #10 scalpel the wound was sharply debrided partial thickness at this time and a curette was then used to remove the slime from the base of the wound and any devitalized tissue until we got some gentle bleeding around the margin. The wound was once again washed down with normal saline and gently dried. Epi fix was then applied to the wound with correct orientation and dressed with Adaptic fluff Kerlix rolls. Venkata left the OR with vital signs stable vascular status intact. He understands that additional applications will likely be necessary to obtain full closure of this wound. He remains in the postoperative shoe and I have asked him to reduce all physical activities to the bare minimum to allow this heel wound to close.
[2021-03-02 07:50] VITALS: BP 115/75; PULSE 57; RESP 16; TEMP 36.6; O2SAT 95
== END 2021-03-02 08:38 | disposition home or self-care (01) ==
PROVIDERS: PCP Emergency Medicine; Visit Provider Podiatrist
PROC: (CPT 15275; principal; 2021-03-02 07:30)
DX: L97.418 Non-pressure chronic ulcer of right heel and midfoot with other specified severity (principal)
CPT/HCPCS: 15275; Q4186

== ENCOUNTER 2021-03-07 10:25 | Outpatient (CLI) | payer MEDICARE, SELFPAY ==
[2021-03-07 12:37] LABS: Source Nasal/Nares
[2021-03-08 05:10] LABS: COVID-19 PCR Negative (Negative)
== END 2021-03-07 10:26 | disposition home or self-care (01) ==
PROVIDERS: PCP Emergency Medicine; Visit Provider Podiatrist
DX: Z20.822 Contact with and (suspected) exposure to COVID-19 (principal); Z01.818 Encounter for other preprocedural examination
CPT/HCPCS: 87635

== ENCOUNTER 2021-03-09 06:59 | Day surgery (SDC) | payer MEDICARE, SELFPAY ==
[2021-03-09 07:45] VITALS: BP 126/88; PULSE 70; RESP 18; TEMP 36.1; O2SAT 97
--- NOTE | 2021-03-09 09:12 | W.PM.OP ---
Date of service: 03/09/21 Time of Service: 09:12 Operative Note Operative Note DATE OF PROCEDURE: 03/09/21 PRE-OP DIAGNOSIS: Chronic ulceration right heel PROCEDURE: Debridement partial thickness with epi fix application right heel wound SURGEON: José Miguel Anguiano ANESTHESIA TYPE: Other Refer to Anesthesia Record ESTIMATED BLOOD LOSS: 0 PATHOLOGY: none sent TOURNIQUET TIME: 0 COMPLICATIONS: None Patient was transported to: same day Patient's condition: stable Procedure Description: 70-year-old male with chronic wound to the right heel region for serial debridement with application epifix graft. On examination the wound continues to contract and heal now measuring 5 mm x 4 mm x 1 mm deep. The base of the wound is showing granulation tissue. There is no undermining or active signs of infection. Hypertrophy around the wound margin is noted as well as some biofilm at the base of the wound. The right heel was washed with normal saline and timeout performed for safe surgery. With a #10 scalpel the wound periphery was sharply debrided to healthy tissue and the base of the wound lightly debrided removing biofilm and debris to pinpoint bleeding noted. A 18 mm circular epi fix graft was then fashioned so as to fit into the base of the wound covered by Adaptic fluffs Kerlix rolls x2 Acosta left the OR with vital signs stable vascular status intact. He will keep the dressings clean dry. Remain in a postoperative shoe. He will be followed in the office in approximately 10 days.
[2021-03-09 09:13] VITALS: BP 140/78; PULSE 59; RESP 18; TEMP 36.3; O2SAT 96
--- NOTE | 2021-03-09 09:17 | W.PM.DSUDISC ---
Discharge Plan Disposition Patient Disposition: HOME Condition: Good Discharge Details Reason For Visit: Debridement right heel wound and epifIX applicatio Attending Provider: José Miguel Anguiano Primary Care Provider: Anson Arboleda Home Meds and New Rx's Prescriptions: Continued (DME) Skintegrity Hydrogel Dressing 4 X 4 bandage See Rx Instructions .ROUTE .MEDSUPPLY Qty: 30 RF: 0 duloxetine 60 mg capsule,delayed release(DR/EC) 60 mg PO DAILY RF: 0 pregabalin [Lyrica] 100 mg capsule 100 mg PO TID Qty: 180 RF: 3 Hold Instructions: Home Medication placed on hold at Doctor's office sildenafil [Viagra] 100 MG tablet 1 tab PO PRN RF: 0 omega-3 fatty acids-fish oil 1 EACH capsule 1 cap PO QPM RF: 0 (DME) blood-glucose meter 1 EACH misc 1 ea Miscellaneous ONCE Qty: 1 RF: 0 (DME) Blood Glucose Test 1 EACH strip 1 ea Miscellaneous DAILY Qty: 100 RF: 4 (DME) lancets 1 EACH misc 1 ea Miscellaneous DAILY Qty: 100 RF: 4 metoprolol succinate [Toprol XL] 200 mg tablet extended release 24 hr 200 mg PO DAILY Qty: 90 RF: 4 warfarin 5 mg tablet 5 mg PO DIRECTED Qty: 100 RF: 6 metformin 1,000 mg tablet 1,000 mg PO BID Qty: 180 RF: 3 losartan [Cozaar] 50 mg tablet 50 mg PO DAILY Qty: 90 RF: 3 pravastatin 40 mg tablet 40 mg PO DAILY Qty: 90 RF: 3 morphine 30 mg tablet extended release 30 mg PO Q12H MDD 2 pills Qty: 60 RF: 0 levothyroxine [Synthroid] 25 mcg tablet 25 mcg PO DAILY Qty: 90 RF: 3 Discharge Instructions Activity:: Activity as Tolerated Remove Dressings/Wound Care:: Do Not Remove Shower/Bathe:: Cover Diet:: Carb Counting Discharge Orders Discharge Orders: Discharge Order (Routine); Ordered 03/09/21 Ordered By: José Miguel Anguiano DS: Diagnosis Discharge Diagnosis (1) Ulcer of heel: Status: Acute
== END 2021-03-09 09:58 | disposition home or self-care (01) ==
PROVIDERS: PCP Emergency Medicine; Visit Provider Podiatrist
PROC: (CPT 15275; principal; 2021-03-09 08:30)
DX: L97.419 Non-pressure chronic ulcer of right heel and midfoot with unspecified severity (principal)
CPT/HCPCS: 15275; Q4186

== ENCOUNTER 2021-04-06 03:05 | Outpatient (CLI) | payer MEDICARE, SELFPAY ==
[2021-04-06 12:31] LABS: HCT 41.1 % (40.0-50.0); HGB 13.1 g/dL (13.5-17.5); MCH 30.9 pg (27.0-33.0); MCHC 31.9 % (32.0-36.0); MCV 96.9 fL (80-95); MPV 11.7 fL (8.0-11.0); Platelet Count 132 10^3/uL (130-400); RBC 4.24 10^6/uL (4.36-5.78); RDW 12.9 % (11.8-14.1); RDW-SD 45.9 fL; WBC 6.46 10^3/uL (4.4-10.8)
[2021-04-06 13:30] LABS: ALT 21 U/L (16-63); AST 18 U/L (15-37); Albumin 3.7 g/dL (3.4-5.0); Alkaline Phosphatase 62 U/L (46-116); Anion Gap 7.5 mmol/L (3-11); BUN 18 mg/dL (7-18); Bilirubin, Total 0.7 mg/dL (0.2-1.0); CO2 28.5 mmol/L (21.0-32.0); CREATININE 0.9 mg/dL (0.70-1.30); Calcium 8.6 mg/dL (8.5-10.1); Calculated LDL 53 mg/dL (<100); Chloride 106 mmol/L (98-107); Cholesterol 130 mg/dL (<200); Glucose 115 mg/dL (74-106); HDL Cholesterol 44 mg/dL (40-60); Potassium 4.2 mmol/L (3.5-5.1); Sodium 142 mmol/L (136-145); Total Protein 6.5 g/dL (6.4-8.2); Triglyceride 169 mg/dL (<150)
[2021-04-06 13:31] LABS: TSH (W/Ref FT4) 1.65 uIU/mL (0.36-3.74)
[2021-04-06 14:51] LABS: Hemoglobin A1C 6.5 % (<5.7)
== END 2021-04-06 03:06 | disposition home or self-care (01) ==
LOC: LOS 03:05
PROVIDERS: PCP Emergency Medicine; Visit Provider Family Medicine
DX: E11.9 Type 2 diabetes mellitus without complications (principal); I10 Essential (primary) hypertension; E03.9 Hypothyroidism, unspecified
CPT/HCPCS: 36415; 80053; 80061; 85027; 83036; 84443

== ENCOUNTER 2021-04-09 11:57 | Outpatient (REF) | payer MEDICARE, SELFPAY ==
[2021-04-09 19:05] LABS: Microalb ug/mg Crea 16.1 ug/mg Cr
== END 2021-04-09 11:58 | disposition home or self-care (01) ==
LOC: LBN 11:57
PROVIDERS: PCP Emergency Medicine; Visit Provider Family Medicine
DX: E11.9 Type 2 diabetes mellitus without complications (principal); E03.9 Hypothyroidism, unspecified
CPT/HCPCS: 82043; 82570

== ENCOUNTER 2021-05-02 12:21 | Outpatient (REF) | payer MEDICARE, SELFPAY ==
[2021-05-03 16:46] LABS: 5-Hydroxyindoleacetic Acid, U 8.2 mg/24 h (<=10.2); Urine Volume 1600 mL
[2021-05-04 12:10] LABS: Urine Volume 1600 mL
[2021-05-04 20:56] LABS: Metanephrines, U 253 mcg/24 h; Normetanephrine, U 566 mcg/24 h; Total Metanephrines, U 819 mcg/24 h; Urine Volume 1600 mL
== END 2021-05-02 12:22 | disposition home or self-care (01) ==
LOC: LBN 12:21
PROVIDERS: PCP Family Medicine; Visit Provider Family Medicine
DX: E11.9 Type 2 diabetes mellitus without complications (principal); I10 Essential (primary) hypertension; R61 Generalized hyperhidrosis
CPT/HCPCS: 81050; 82384; 83497; 83835

== ENCOUNTER 2021-07-13 07:19 | Emergency (ER) | payer MEDICARE, SELFPAY ==
[2021-07-13] VITALS (12 sets, daily range): BP systolic 119–136; BP diastolic 54–79; PULSE 49–82; RESP 10–27; TEMP 36.9; O2SAT 93–98
--- NOTE | 2021-07-13 08:00 | DI.CT_ITS ---
Exam(s) CT HEAD WO EXAM: CT HEAD WO CLINICAL HISTORY: Head Injury, On Coumadin. TECHNIQUE: Imaging Protocol: Axial computed tomography images with coronal and sagittal reformatted images were created and reviewed COMPARISON: CT HEAD WITHOUT CONTRAST from 10/23/2016 FINDINGS: Ventricles and Extra axial spaces: Normal in size and morphology for the patient's age. Hemorrhage: None. Cerebral parenchyma: There is no evidence of an acute territorial infarct. There are subtle areas of decreased attenuation in the white matter most consistent with chronic microvascular ischemic diseas e. Midline shift: None. Brainstem/Cerebellum: Normal. Calvarium: Normal. Visualized Paranasal sinuses/Mastoids: There is mucosal thickening in the left maxillary sinus. Ther e is thickening of the wall of the left maxillary sinus. These findings are most suggestive of chron ic sinus disease. The remaining visualized paranasal sinuses and mastoid air cells are clear. Soft Tissues: Unremarkable. IMPRESSION: 1. No acute intracranial process. 2. Results of this exam have been verbally communicated with provider. RADIATION DOSE DELIVERED: 945.65mGy.cm Total DLP DATA REPOSITORY: All CT scans at this facility are submitted to the National Radiology Data Registry (NRDR) Dose Index Registry (DIR) with the [employer] ([employer]). RADIATION OPTIMIZATION: All CT scans at this facility use at least one of these dose optimization te chniques: automated exposure control; mA and/or kV adjustment per patient size (includes targeted exa ms where dose is matched to clinical indication); or iterative reconstruction.
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
--- NOTE | 2021-07-13 10:37 | NUR.NOTE ---
Nursing Note: PT INFO FAXED TO ENT TO BE SEEN IN 5 DAYS FOR EAR LACERATION. KIZZY, ED
== END 2021-07-13 09:34 | disposition home or self-care (01) ==
PROVIDERS: Emergency Provider Registered Nurse Emergency; PCP Family Medicine
DX: S09.8XXA Other specified injuries of head, initial encounter (principal); S01.311A Laceration without foreign body of right ear, initial encounter; Z79.01 Long term (current) use of anticoagulants; W06.XXXA Fall from bed, initial encounter
CPT/HCPCS: 12011; 99284; 70450; 99283

== ENCOUNTER 2021-07-14 22:04 | Emergency (ER) | payer MEDICARE, SELFPAY ==
[2021-07-14 22:11] VITALS: BP 133/71; PULSE 85; RESP 16; TEMP 36.4; O2SAT 92
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
[2021-07-14 23:29] VITALS: BP 127/74; PULSE 84; RESP 16; O2SAT 93
[2021-07-14] MEDS: Silver Nitrate Stick 1 EACH (23:50)
== END 2021-07-14 23:42 | disposition home or self-care (01) ==
PROVIDERS: Emergency Provider Registered Nurse Emergency; PCP Family Medicine
DX: S01.311D Laceration without foreign body of right ear, subsequent encounter (principal); X58.XXXD Exposure to other specified factors, subsequent encounter; Z79.01 Long term (current) use of anticoagulants
CPT/HCPCS: 99281

== ENCOUNTER 2021-08-16 03:30 | Outpatient (CLI) | payer MEDICARE, SELFPAY ==
[2021-08-16 13:50] LABS: Hemoglobin A1C 6.7 % (<5.7)
[2021-08-16 13:58] LABS: INR 2.9 (0.9-1.1)
[2021-08-16 14:18] LABS: Anion Gap 7.9 mmol/L (3-11); BUN 20 mg/dL (7-18); CO2 27.1 mmol/L (21.0-32.0); CREATININE 0.8 mg/dL (0.70-1.30); Calcium 8.7 mg/dL (8.5-10.1); Chloride 104 mmol/L (98-107); Glucose 104 mg/dL (74-106); Potassium 4.8 mmol/L (3.5-5.1); Sodium 139 mmol/L (136-145)
[2021-08-17 11:07] LABS: Varicella IgG Antibody Positive (See Note)
== END 2021-08-16 03:31 | disposition home or self-care (01) ==
LOC: LBO 03:30
PROVIDERS: PCP Family Medicine; Visit Provider Family Medicine
DX: E11.9 Type 2 diabetes mellitus without complications (principal); I48.91 Unspecified atrial fibrillation; Z11.59 Encounter for screening for other viral diseases; Z79.01 Long term (current) use of anticoagulants
CPT/HCPCS: 36415; 80048; 86787; 83036; 85610

== ENCOUNTER 2021-09-03 08:48 | Day surgery (SDC) | payer MEDICARE, SELFPAY ==
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
[2021-09-03 09:25] VITALS: BMI 34.5
[2021-09-03 09:30] VITALS: BP 109/84; PULSE 68; RESP 16; TEMP 36.1; O2SAT 100
[2021-09-03] MEDS: Tropicam./Phenyleph. (1/2.5%) 5 ML BTL OS ×3 (09:38→09:48)
[2021-09-03] MEDS: Povidone-Iodine Ophth 30 ML BTL (10:06)
[2021-09-03] MEDS: Lidocaine 2% Jelly 6 ML SYR (10:06)
[2021-09-03] MEDS: Tetracaine 0.5% 4 ML BTL OS (10:06)
[2021-09-03] MEDS: Duovisc Viscoelastic System EACH 1 EACH (10:15)
[2021-09-03] MEDS: Balanced Salt Soln.-PLUS 500 ML BAG (10:15)
[2021-09-03 10:42] VITALS: BP 103/65; PULSE 68; RESP 16; TEMP 36.1; O2SAT 99
--- NOTE | 2021-09-03 10:43 | W.PM.DSUDISC ---
Discharge Plan Disposition Patient Disposition: HOME Condition: Good Discharge Details Attending Provider: Dontae Martini Primary Care Provider: David Zuleta Home Meds and New Rx's Prescriptions: No Action morphine [MS Contin] 15 mg tablet extended release 15 mg PO BID MDD 60 mg PRN (Reason: pain) Qty: 56 0RF omega-3 fatty acids-fish oil 1 EACH capsule 1 cap PO QPM 0RF (DME) lancets 1 EACH misc 1 ea Miscellaneous DAILY Qty: 100 4RF Rx Instructions: FOR ONE TOUCH ULTRA METER. NO INSULIN. DIAGNOSIS CODE E11.9 losartan [Cozaar] 50 mg tablet 50 mg PO DAILY Qty: 90 3RF pravastatin 40 mg tablet 40 mg PO DAILY Qty: 90 3RF levothyroxine [Synthroid] 25 mcg tablet 25 mcg PO DAILY Qty: 90 3RF metoprolol succinate [Toprol XL] 200 mg tablet extended release 24 hr 200 mg PO DAILY Qty: 90 4RF duloxetine 60 mg capsule,delayed release(DR/EC) 60 mg PO DAILY Qty: 90 3RF warfarin 5 mg tablet 5 mg PO DIRECTED Qty: 100 6RF Protocol: Dose Management Condition: Friday Dose/Route: 5 mg Instruction: 1 x 5 mg tablet Condition: Friday Dose/Route: 2.5 mg Instruction: 0.5 x 5 mg tablets Condition: Friday Dose/Route: 5 mg Instruction: 1 x 5 mg tablet Condition: Friday Dose/Route: 5 mg Instruction: 1 x 5 mg tablet Condition: Dose/Route: 5 mg Instruction: 1 x 5 mg tablet Condition: Friday Dose/Route: 5 mg Instruction: 1 x 5 mg tablet Condition: Friday Dose/Route: 5 mg Instruction: 1 x 5 mg tablet Protocol Text: Adjustment Start Date: 08/16/21 INR Value: 2.9 INR Date: 08/16/21 Recheck Date: 09/15/21 Rx Instructions: ACCORDING TO INR pregabalin [Lyrica] 100 mg capsule 100 mg PO TID Qty: 180 3RF Hold Instructions: Home Medication placed on hold at Doctor's office metformin 1,000 mg tablet 1,000 mg PO BID Qty: 180 1RF Discharge Instructions Stand Alone Forms: Post-op Topical Cataract, Press Ganey (DSU) Discharge Orders Discharge Orders: Discharge Order (Routine); Ordered 09/03/21 Ordered By: Dontae Martini DS: Diagnosis Discharge Diagnosis (1) Posterior subcapsular age-related cataract of left eye: Status: Resolved (2) Nuclear sclerotic cataract of left eye: Status: Resolved
--- NOTE | 2021-09-03 10:44 | ROE_ITS ---
Date of service: 09/03/21 Time of Service: 10:44 Operative Note Operative Note DATE OF PROCEDURE: 09/03/21 PRE-OP DIAGNOSIS: Dense nuclear/posterior subcapsular cataract, left eye POST-OP DIAGNOSIS: same PROCEDURE: Cataract extraction using phacoemulsification with intraocular lens implant, left eye SURGEON: Dontae Martini ANESTHESIA TYPE: Local By Surgeon and MAC Refer to Anesthesia Record PATHOLOGY: none sent COMPLICATIONS: None Patient was transported to: same day Patient's condition: stable Implants: Mayur and Mayur / [employer] Tecnis [id number] Indications: Progressive decreased vision due to cataract, left eye Procedure Description: CATARACT SURGERY OPERATIVE REPORT PREOPERATIVE DIAGNOSIS: 1. Dense nuclear/posterior subcapsular cataract, left eye POSTOPERATIVE DIAGNOSIS: Same OPERATION: 1. Cataract extraction using phacoemulsification with posterior chamber intraocular lens implant, left eye. IOL: IOL Rope Making Machine Operator/Model: Mayur & Mayur / CAROL Tecnis [id number] IOL Power: + 18.0 diopters IOL Serial Number: [id number] Optic Diameter: 6.0 mm Haptic/Overall Diameter: 13.0 mm PHACO INFO: Waqas Klick2Contacturion Vision System with OZil and Active Fluidics Cumulative Dispersed Energy (CDE): 14.38 seconds SURGEON: Dontae Martini MD, LUCILA ANESTHESIA: Monitored A [facility] (MAC), with local sub-tenon's anesthetic infiltration COMPLICATIONS: None SPECIMENS: None INDICATIONS FOR PROCEDURE: The patient is a 70-year-old gentleman with history of diminished visual acuity in his left eye secondary to development of dense nuclear/posterior subcapsular cataract. The option of cataract surgery was offered to the patient and he felt he was symptomatic enough that he wished to proceed. PROCEDURE: The correct surgical eye was identified and marked as the left eye and the pupil was dilated in the preoperative area using mydriatics and cycloplegics. The dilated pupil size was 6.5 mm. Oral sedation was administered in the form of an Imprimis MKO Melt (midazolam 3mg/ketamine 25mg/ondansetron 2mg). The patient was brought to the operating room where cardiopulmonary monitoring was instituted and surgical time-out was performed, confirming the correct operative eye and IOL power. Topical anesthesia was administered and ophthalmic povidone-iodine 5% was instilled into the conjunctival fornices. Lidocaine gel was applied to the cornea and the sasha-ocular area was prepped with Betadine 10% solution and draped in the usual sterile fashion for intraocular surgery, including an aperture drape. A Tegaderm transparent film dressing was cut in half and used to cover the lashes and lid margins. Care was taken to sequester the lashes and lid margins under the Tegaderm dressing. A lid speculum was placed between the lids of the operative eye and the Waqas LuxOR Revalia operating microscope was maneuvered into position. Richardson scissors were then used to make a conjunctival buttonhole approximately 6mm posterior to the limbus in the inferonasal quadrant. Blunt dissection was carried out to expose bare sclera, and a blunt-tipped sub-tenon?s anesthesia cannula was introduced and passed posteriorly along the globe where non- preserved plain lidocaine was injected into posterior sub-Tenon?s space. A sideport knife was used to make a paracentesis port superiorly/superiortemporally. Intraocular phenylephrine/lidocaine was injected int the anterior chamber.. The anterior chamber was filled with viscoelastic. A 2.4mm keratome knife was used to create a half-thickness groove at the limbus and then to construct a three-plane near-clear corneal tunnel extending 2.0mm into clear cornea at the 3:00 position. A flap was raised on the anterior capsule and capsulorhexis forceps were used to complete a continuous curvilinear capsulorhexis of 5.0 mm. Moderate to significant zonular laxity was noted. Balanced salt solution was then used to perform cortical cleaving hydrodissection and nuclear hydrodelineation until the lens could be freely rotated within the capsular bag. The lens nucleus was then disassembled and removed within the capsular bag and iris plane using phacoemulsification. Residual cortical material was removed using the 45-degree angled silicone I/A tip with 0.3mm port. The posterior capsule was carefully polished to remove as much residual lens epithelial cells as safely possible. The capsular bag was then inflated and the anterior chamber deepened with viscoelastic. The lens implant described above was inserted into the capsular bag using the CAROL [place] Injector. A Kuglen hook was used to dial the IOL into position. Residual viscoelastic was then removed first from posterior to the IOL, then from the anterior chamber using the I/A handpiece. The lens implant was noted to center nicely within the capsular bag. The incisions were stromally hydrated, and the anterior chamber was reformed using BSS. Then 0.5cc of moxifloxacin 1.0mg/ml were injected into the capsular bag and anterior chamber. The incisions were checked with a Weck spear and found to be secure. Several drops of ophthalmic povidone-iodine 5% were then applied to the eye followed by two drops of Imprimis combination prednisolone/moxifloxacin/nepafenac solution. The drapes were removed and a clear plastic protective eye shield was placed over the eye. The patient was then returned to Same Day Surgery in stable condition.
[2021-09-03 11:10] VITALS: BP 116/69; PULSE 72; RESP 16; TEMP 36.2; O2SAT 96
--- NOTE | 2021-09-03 13:20 | W.ANESPOSTOP ---
Postoperative Evaluation Date, Time and Location Date Performed: 09/03/21 Time Performed: 11:11 Patient Location: Day Surgery Unit Vital Signs Most Recent Imported Vital Signs: Most Recent Vital Signs Temp Pulse Resp BP Pulse Ox 36.2 C L 72 16 116/69 96 09/03/21 11:10 09/03/21 11:10 09/03/21 11:10 09/03/21 11:10 09/03/21 11:10 Pain Score Most Recent Pain Score: Most Recent Pain Score Pain Level 0 09/03/21 11:10 Assessment Mental Status: Awake (Alert & Oriented to Patient Baseline) Airway and Respiratory Function: Patent airway with normal (patient baseline) respiratory exam Cardiovascular Function: Hemodynamically Stable Hydration Status: Adequately Hydrated Nausea & Vomiting: No Nausea or Vomiting Pain: Pt. Denies Any Pain Peripheral Nerve Block: Other (Local by Dr. Martini)
== END 2021-09-03 11:15 | disposition home or self-care (01) ==
PROVIDERS: PCP Nurse Practitioner Family; Visit Provider Ophthalmology
PROC: (CPT 66984; principal; 2021-09-03 10:30)
DX: H25.042 Posterior subcapsular polar age-related cataract, left eye (principal); E11.9 Type 2 diabetes mellitus without complications; I10 Essential (primary) hypertension
CPT/HCPCS: 66984; V2632

== ENCOUNTER 2021-09-17 06:24 | Day surgery (SDC) | payer MEDICARE, SELFPAY ==
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
[2021-09-17] MEDS: Tropicam./Phenyleph. (1/2.5%) 5 ML BTL OD ×3 (06:40→06:54)
[2021-09-17 06:46] VITALS: BP 123/61; PULSE 66; RESP 16; TEMP 35.9; O2SAT 98
[2021-09-17 07:04] VITALS: BMI 34.7
[2021-09-17] MEDS: Balanced Salt Soln.-PLUS 500 ML BAG (07:33)
[2021-09-17] MEDS: Povidone-Iodine Ophth 30 ML BTL (07:33)
[2021-09-17] MEDS: Lidocaine 2% Jelly 6 ML SYR (07:34)
[2021-09-17] MEDS: Duovisc Viscoelastic System EACH 1 EACH (07:34)
[2021-09-17] MEDS: Tetracaine 0.5% 4 ML BTL OD (07:35)
[2021-09-17 07:52] VITALS: BP 107/77; PULSE 65; RESP 16; TEMP 36.4; O2SAT 95
--- NOTE | 2021-09-17 07:54 | W.PM.DSUDISC ---
Discharge Plan Disposition Patient Disposition: HOME Condition: Good Discharge Details Attending Provider: Dontae Martini Primary Care Provider: David Zuleta Home Meds and New Rx's Prescriptions: No Action morphine [MS Contin] 15 mg tablet extended release 15 mg PO BID MDD 60 mg PRN (Reason: pain) Qty: 56 0RF omega-3 fatty acids-fish oil 1 EACH capsule 1 cap PO QPM 0RF (DME) lancets 1 EACH misc 1 ea Miscellaneous DAILY Qty: 100 4RF Rx Instructions: FOR ONE TOUCH ULTRA METER. NO INSULIN. DIAGNOSIS CODE E11.9 losartan [Cozaar] 50 mg tablet 50 mg PO DAILY Qty: 90 3RF pravastatin 40 mg tablet 40 mg PO DAILY Qty: 90 3RF levothyroxine [Synthroid] 25 mcg tablet 25 mcg PO DAILY Qty: 90 3RF metoprolol succinate [Toprol XL] 200 mg tablet extended release 24 hr 200 mg PO DAILY Qty: 90 4RF duloxetine 60 mg capsule,delayed release(DR/EC) 60 mg PO DAILY Qty: 90 3RF warfarin 5 mg tablet 5 mg PO DIRECTED Qty: 100 6RF Protocol: Dose Management Condition: Friday Dose/Route: 5 mg Instruction: 1 x 5 mg tablet Condition: Friday Dose/Route: 2.5 mg Instruction: 0.5 x 5 mg tablets Condition: Friday Dose/Route: 5 mg Instruction: 1 x 5 mg tablet Condition: Friday Dose/Route: 5 mg Instruction: 1 x 5 mg tablet Condition: Dose/Route: 5 mg Instruction: 1 x 5 mg tablet Condition: Friday Dose/Route: 5 mg Instruction: 1 x 5 mg tablet Condition: Friday Dose/Route: 5 mg Instruction: 1 x 5 mg tablet Protocol Text: Adjustment Start Date: 08/16/21 INR Value: 2.9 INR Date: 08/16/21 Recheck Date: 09/15/21 Rx Instructions: ACCORDING TO INR pregabalin [Lyrica] 100 mg capsule 100 mg PO TID Qty: 180 3RF Hold Instructions: Home Medication placed on hold at Doctor's office metformin 1,000 mg tablet 1,000 mg PO BID Qty: 180 1RF Discharge Instructions Stand Alone Forms: Post-op Topical Cataract, Press Ganey (DSU) Discharge Orders Discharge Orders: Discharge Order (Routine); Ordered 09/17/21 Ordered By: Dontae Martini DS: Diagnosis Discharge Diagnosis (1) Nuclear sclerotic cataract of right eye: Status: Resolved (2) Posterior subcapsular age-related cataract, right eye: Status: Resolved
--- NOTE | 2021-09-17 07:56 | ROE_ITS ---
Date of service: 09/17/21 Time of Service: 07:56 Operative Note Operative Note DATE OF PROCEDURE: 09/17/21 PRE-OP DIAGNOSIS: Nuclear/posterior subcapsular cataract, right eye POST-OP DIAGNOSIS: same PROCEDURE: Cataract extraction using phacoemulsification with intraocular lens implant, right eye SURGEON: Dontae Martini ANESTHESIA TYPE: Local By Surgeon and MAC Refer to Anesthesia Record ESTIMATED BLOOD LOSS: 0 PATHOLOGY: none sent COMPLICATIONS: None Patient was transported to: same day Patient's condition: stable Implants: Mayur & Mayur/CAROL Tecnis [id number] Indications: Progressive visual loss due to cataract, right eye Procedure Description: CATARACT SURGERY OPERATIVE REPORT PREOPERATIVE DIAGNOSIS: 1. Nuclear/posterior subcapsular cataract, right eye POSTOPERATIVE DIAGNOSIS: Same OPERATION: 1. Cataract extraction using phacoemulsification with posterior chamber intraocular lens implant, right eye. IOL: IOL Therapist Asst/Model: Mayur & Mayur / CAROL Tecnis [id number] IOL Power: + 16.0 diopters IOL Serial Number: [id number] Optic Diameter: 6.0mm Haptic/Overall Diameter: 13.0mm PHACO INFO: Waqas Inception Sciencesurion Vision System with OZil and Active Fluidics Cumulative Dispersed Energy (CDE): 9.04 seconds SURGEON: Dontae Martini MD, LUCILA ANESTHESIA: Monitored Anesthesia Care (MAC), with local sub-tenon's anesthetic infiltration COMPLICATIONS: None SPECIMENS: None INDICATIONS FOR PROCEDURE: Patient is a 70-year-old male with history of diminished visual acuity in both eyes secondary to the development of bilateral nuclear and posterior subcapsular cataract. He has already undergone cataract surgery in the left eye and is doing well postoperatively. He now presents for cataract surgery in the right eye. PROCEDURE: The correct surgical eye was identified and marked as the right eye and the pupil was dilated in the preoperative area using mydriatics and cycloplegics. The dilated pupil size was 7.0 mm. Oral sedation was administered in the form of an Imprimis MKO Melt (midazolam 3mg/ketamine 25mg/ondansetron 2mg). The patient was brought to the operating room where cardiopulmonary monitoring was instituted and surgical time-out was performed, confirming the correct operative eye and IOL power. Topical anesthesia was administered and ophthalmic povidone-iodine 5% was instilled into the conjunctival fornices. Lidocaine gel was applied to the cornea and the sasha-ocular area was prepped with Betadine 10% solution and draped in the usual sterile fashion for intraocular surgery, including an aperture drape. A Tegaderm transparent film dressing was cut in half and used to cover the lashes and lid margins. Care was taken to sequester the lashes and lid margins under the Tegaderm dressing. A lid speculum was placed between the lids of the operative eye and the Waqas LuxOR Revalia operating microscope was maneuvered into position. Richardson scissors were then used to make a conjunctival buttonhole approximately 6mm posterior to the limbus in the inferonasal quadrant. Blunt dissection was carried out to expose bare sclera, and a blunt-tipped sub-tenon?s anesthesia cannula was introduced and passed posteriorly along the globe where non- preserved plain lidocaine was injected into posterior sub-Tenon?s space. A sideport knife was used to make a paracentesis port inferotemporally. Intraocular phenylephrine/lidocaine was injected into the anterior chamber. The anterior chamber was filled with viscoelastic. A 2.4mm keratome knife was used to create a half-thickness groove at the limbus and then to construct a three- plane near-clear corneal tunnel extending 2.0mm into clear cornea superiortemporally. A flap was raised on the anterior capsule and capsulorhexis forceps were used to complete a continuous curvilinear capsulorhexis of 5.0 mm. Balanced salt solution was then used to perform cortical cleaving hydrodissection and nuclear hydrodelineation until the lens could be freely rotated within the capsular bag. The lens nucleus was then disassembled and removed within the capsular bag and iris plane using phacoemulsification. Residual cortical material was removed using the I/A handpiece. The posterior capsule was carefully polished to remove as much residual lens epithelial cells as safely possible. The capsular bag was then inflated and the anterior chamber deepened with viscoelastic. The lens implant described above was inserted into the capsular bag using the CAROL [place] Injector. A Kuglen hook was used to dial the IOL into position. Residual viscoelastic was then removed first from posterior to the IOL, then from the anterior chamber using the I/A handpiece. The lens implant was noted to center nicely within the capsular bag. The incisions were stromally hydrated, and the anterior chamber was reformed using BSS. Then 0.5cc of moxifloxacin 1.0mg/ml were injected into the capsular bag and anterior chamber. The incisions were checked with a Weck spear and found to be secure. Several drops of ophthalmic povidone-iodine 5% were then applied to the eye followed by two drops of Imprimis combination prednisolone/moxifloxacin/nepafenac solution. The drapes were removed and a clear plastic protective eye shield was placed over the eye. The patient was then returned to Same Day Surgery in stable condition.
--- NOTE | 2021-09-17 08:04 | W.ANESPOSTOP ---
Postoperative Evaluation Date, Time and Location Date Performed: 09/17/21 Time Performed: 08:04 Patient Location: Day Surgery Unit Vital Signs Most Recent Imported Vital Signs: Most Recent Vital Signs Temp Pulse Resp BP Pulse Ox 36.4 C L 65 16 107/77 95 09/17/21 07:52 09/17/21 07:52 09/17/21 07:52 09/17/21 07:52 09/17/21 07:52 Pain Score Most Recent Pain Score: Most Recent Pain Score Pain Level 0 09/17/21 07:52 Assessment Mental Status: Awake (Alert & Oriented to Patient Baseline) Airway and Respiratory Function: Patent airway with normal (patient baseline) respiratory exam Cardiovascular Function: Hemodynamically Stable Hydration Status: Adequately Hydrated Nausea & Vomiting: No Nausea or Vomiting Pain: Pt. Denies Any Pain Peripheral Nerve Block: Patient did not receive a nerve block
[2021-09-17 08:21] VITALS: BP 104/53; PULSE 65; RESP 16; TEMP 36.5; O2SAT 94
== END 2021-09-17 08:41 | disposition home or self-care (01) ==
PROVIDERS: PCP Nurse Practitioner Family; Visit Provider Ophthalmology
PROC: (CPT 66984; principal; 2021-09-17 07:30)
DX: H25.041 Posterior subcapsular polar age-related cataract, right eye (principal)
CPT/HCPCS: 66984; V2632

== ENCOUNTER 2021-10-30 10:19 | Outpatient (CLI) | payer MEDICARE, SELFPAY ==
[2021-10-30 12:42] LABS: INR 1.1 (0.9-1.1); Prothrombin Time 11.1 sec (9.3-11.0)
== END 2021-10-30 10:20 | disposition home or self-care (01) ==
LOC: LOS 10:21
PROVIDERS: PCP Nurse Practitioner Family; Visit Provider Family Medicine
DX: I48.91 Unspecified atrial fibrillation (principal); Z79.01 Long term (current) use of anticoagulants
CPT/HCPCS: 36415; 85610

== ENCOUNTER 2021-11-09 09:48 | Outpatient (CLI) | payer MEDICARE, SELFPAY ==
[2021-11-09 12:33] LABS: INR 1.1 (0.9-1.1); Prothrombin Time 10.8 sec (9.3-11.0)
[2021-11-09 12:57] LABS: Hemoglobin A1C 6.2 % (<5.7)
== END 2021-11-09 09:49 | disposition home or self-care (01) ==
LOC: LOS 09:49
PROVIDERS: Visit Provider Nurse Practitioner Family
DX: I48.91 Unspecified atrial fibrillation (principal); Z79.01 Long term (current) use of anticoagulants; E11.9 Type 2 diabetes mellitus without complications
CPT/HCPCS: 36415; 83036; 85610

== ENCOUNTER 2021-11-16 01:14 | Outpatient (CLI) | payer MEDICARE, SELFPAY ==
--- OUTSIDE RECORDS SUMMARY | 2021-11-16 01:24 | XMS_ITS | Clinical Summary ---
:1950 Author Organization [facility] [place] [address] Care Team Providers Name Role Phone Rashard Chowdhury MD Primary Care Provider Allergies Active Allergy Reactions Severity Noted Date Comments Ibuprofen CIS - itching Simvastatin Medium CIS - periphrea l neuropathy Medications Medication Sig Dispensed Refills Start Date End Date Status [place]-3 Fatty Take 1 capsule by 0 Active Acids-Vitamin E (FISH mouth daily. OIL) 1,000 mg Cap warfarin (COUMADIN) 5 Take by mouth 0 Active mg tablet daily. pravastatin (PRAVACHOL) Take 40 mg by 0 Active 40 mg Tablet mouth daily. morphine (MS CONTIN) 30 Take 30 mg by 0 Active mg Tablet Sustained mouth 2 times Release daily. DULoxetine (CYMBALTA) Take 1 capsule by 0 10/08/2016 Active 60 mg Capsule, Delayed mouth daily. Release(E.C.) losartan (COZAAR) 50 mg Take 1 tablet by 0 7 Active Tablet mouth daily. levothyroxine Take 1 tablet by 3 11/08/2016 Active (SYNTHROID) 25 mcg mouth daily. Tablet meTOPROLOL succinate Take 200 mg by 0 Active (TOPROL-XL) 200 mg mouth daily. Tablet Sustained Release 24 hr LYRICA 200 mg Capsule Take 1 capsule by 5 11/16/2016 Active mouth 3 times daily. metFORMIN (GLUCOPHAGE) Take 1 tablet by 3 01/08/2017 Active 1,000 mg Tablet mouth 2 times daily. Active Problems Problem Noted Date Chronic sinusitis 02/07/2012 Dacrocystitis 02/07/2012 Dacryocystitis, chronic 01/22/2012 Family History Medical History Relation Comments Glaucoma Neg Hx Macular Degeneration Neg Hx Retinal Detachment Neg Hx Social History Tobacco Use Types Packs/Day Years Used Date Former Smoker Cigarettes 1 40 Quit: 01/15/20 10 Smokeless Tobacco: Never Used Alcohol Use Standard Drinks/Week Comments Yes 7 (1 standard drink = 0.6 oz pure alcoho l) Sex Assigned at Date Recorded Not on file Last Filed Vital Signs Vital Sign Reading Time Taken Comments Blood Pressure 121/64 03/24/2017 2:30 PM EDT Pulse 65 03/24/2017 2:30 PM EDT Temperature 36 ??C (96.8 ??F) 07/02/2013 3:43 PM EST Respiratory Rate 18 07/02/2013 4:15 PM EST Oxygen Saturation 95% 07/02/2013 4:15 PM EST Inhaled Oxygen Concentration - - Weight 137.4 kg (303 lb) 03/24/2017 2:30 PM EDT Height 182.9 cm (6') 03/24/2017 2:30 PM EDT reported Body Mass Index 41.09 03/24/2017 2:30 PM EDT Plan of Treatment Health Maintenance Due Date Last Done Comments Covid-19 Vaccine (#1) 1953 Hepatitis C Screening 1966 Tdap adult 10/13/1967 Tetanus vaccine 10/13/1967 Colonoscopy 1993 Zoster vaccine (1 of 2) 1998 Advance Directive 10/13/2003 AAA Screen 2013 Pneumoccocal Vaccine: 65+ (1 of 1 - PPSV23) 2013 Influenza (Flu) vaccine (1 of 1 - Influenza standard 01/24/2021 series) Insurance Payer Benefit Plan / Subscriber ID Effective Phone Address T ype Group Dates AETNA MEDICARE AETNA MEDICARE [id number] 2021-Pres [address] [address] [place]PPLE[place] [address] MEDICARE MEDICARE PART A [id number] 2016-Prese [id number] [place] [id number] Care Teams Architectural Superintendent Relationship Specialty Start Date End Date Rashard Chowdhury MD PCP - General Family Medicine 04/26/[address] [place] [address] [place] [address]
--- OUTSIDE RECORDS SUMMARY | 2021-11-16 01:24 | XMS_ITS | Encounter Summary ---
:1950 [place] [address] Care Team Providers Name Role Phone RoblesAnson yang Primary Care Provider Reason for Visit Reason Comments Epistaxis Excessive nose bleeds, LT si de, Last one was yesterday, Ongoing, past few weeks has gotten worse Encounter Details Date Type Department Care Team Description 02/22/2016 Office Visit Otolaryngology at [facility] Prashanth Juárez PA Epistaxis [facility] D [place] [facility] [place] [phone] OTOLARYNGOLOGY DEPT. [phone] [place], [place] [address] (Wo rk) Social History Tobacco Use Types Packs/Day Years Used Date Former Smoker Cigarettes 1 40 Quit: 01/15/20 10 Smokeless Tobacco: Never Used Alcohol Use Standard Drinks/Week Comments Yes 7 (1 standard drink = 0.6 oz pure alcoho l) 1 beer a day Alcohol Habits Answer Date Recorded How often do you have a drink containing alcohol? Not asked How many drinks containing alcohol do you have on a Not aske d typical day when you are drinking? How often do you have six or more drinks on one occasion? No t asked Comment: 1 beer a day 12/28/2012 Sex Assigned at Date Recorded Not on file documented as of this encounter Last Filed Vital Signs Vital Sign Reading Time Taken Comments Blood Pressure - - Pulse - - Temperature - - Respiratory Rate - - Oxygen Saturation - - Inhaled Oxygen Concentration - - Weight 142.9 kg (315 lb) 02/22/2016 2:14 PM EDT Height 182.9 cm (6') 02/22/2016 2:14 PM EDT Body Mass Index 42.72 02/22/2016 2:14 PM EDT documented in this encounter Progress Notes Prashanth Juárez PA - 02/22/2016 3:00 PM EDT Acosta Kay is 65 years of age and presents today for evaluation of left- sided anterior epistaxis. The patient reports over the last 2 weeks he has been experiencing intermittent anterior nosebleeds which can be relatively vigorous at times. There are always anterior. He has been able to control them with light packing and pressure. His last bleed was 2 days ago. His last visit with me was in 2012 for a postop visit by Dr. Cleveland. He underwent dacryocystorhinostomy, with bilateral excision of the inferior turbinates. He is on anticoagulation months for atrial fibrillation. On exam he appears healthy in no acute distress. Examination of the nose reveals normal appearing mucosa on the right side. The left nasal cavity along the anterior septum is a small area of granulation type tissue. This had some crusting over which was removed with suction and did promote bleeding. I was able to achieve hemostasis with application of silver nitrate cautery. Some of the granulation was removed with the silver nitrate caused sittingmore bleeding, I was able to achieve complete hemostasis by cauterizing the base. This area measuredapproximately 2 mm in diameter. No septal perforation was noted. Surgicel was then coated with bacitracin and placed into the nose. I've asked him to keep this in the nose for the next 24 hours and then remove it if it doesn't fall out by itself. There then to use bacitracin ointment 3 times a day with saline sprays to keep the area moist. I've also recommended over the next 4-5 days no heavy lifting, no nose blowing, and no straining. If he has recurrent bleedingthey're to call for reevaluation and recauterize examination. I did tell them that this is a possibility. Prashanth Juráez PA-C Department of Otolaryngology [facility] [place] [address] Office Phone - documented in this encounter Plan of Treatment Not on filedocumented as of this encounter Visit Diagnoses Diagnosis Epistaxis documented in this encounter Care Teams Form Drafter Relationship Specialty Start Date End Date Anson Arboleda DO PCP - General 04/17/10 04/25/21 [address] [place] [address] documented as of this encounter
--- OUTSIDE RECORDS SUMMARY | 2021-11-16 01:24 | XMS_ITS | Encounter Summary ---
:1950 Author Organization [facility] [place] [address] Care Team Providers Name Role Phone RoblesAnson Primary Care Provider Reason for Visit Reason Comments Follow-up hx of chronic sinusitis and bilateral dacryocystitis (L>R) Encounter Details Date Type Department Care Team Description 09/23/2013 Follow-Up Otolaryngology at [facility] Megha, History of [facility] Praneeth Vick MD dacryocystorhinostomy [facility] (Primary Dx) [place] [address] [address] [phone] [place] [address] Social History Tobacco Use Types Packs/Day Years [...] Sign Reading Time Taken Comments Blood Pressure 122/77 09/23/2013 8:35 AM EDT Pulse 65 09/23/2013 8:35 AM EDT Temperature - - Respiratory Rate - - Oxygen Saturation - - Inhaled Oxygen Concentration - - Weight 136.1 kg (300 lb) 09/23/2013 8:35 AM EDT Height 182.9 cm (6') 09/23/2013 8:35 AM EDT Body Mass Index 40.69 09/23/2013 8:35 AM EDT documented in this encounter Progress Notes Praneeth Cleveland MD - 09/23/2013 12:44 PM EDT Images from the original note were not included. Subjective: Patient ID: Acosta Kay is a 62 y.o. male. HPI Patient with hx of chronic sinusitis and bilateral dacryocystitis (L>R) who is s/p FESS and LEFTendoscopic DCR 04/03/2012. Patient is s/p nasal and facial trauma in the past. He was then taken to the OR on 05/29/2012 for a difficult repeat LEFT endoscopic DCR in view of ongoing symptoms of nasal obstruction and persistent epiphora. Patient was doing well and in view of symptoms of RIGHT epiphora, decided to undergo endoscopic R DCR done on 12/28/2012. Was doing well with considerable improvement of his eye symptoms. No further infection/orbital pain/facial redness/nasal pain/epiphora. We removed his R sided stent after he had partial extrusion a few months ago. Denies active infection symptoms, no epiphora. When wakes up in the morning has some thick drainage from left side. No pain, no headache. Very pleased about outcome so far. Has not been compliant with irrigations of his nose. Notes some bloody oozing in the morning. Past Medical History Diagnosis Date ??? Trauma ??? Neuromuscular disorder ??? Hyperlipidemia ??? Cardiac disease ??? Diabetes mellitus ??? Atrial fibrillation, chronic ??? COPD (chronic obstructive pulmonary disease) ??? Hypertension Past Surgical History Procedure Date ??? Nasal scopy, rmv tiss maxill sinus 04/03/2012 NASAL, SINUS ENDOSCOPY, REMOVE TISSUE MAXILLARY SINUS, MURIEL performed by SHI TURNER at [facility] OR ??? Nasal scopy, remv totl ethmoid 04/03/2012 NASAL, SINUS ENDOSCOPY, TOTAL ETHMOIDECTOMY-MURIEL performed by SHI TURNER at [facility] OR ??? Nasal/sinus scopy, surg tear duct 05/29/2012 NASAL, SINUS ENDOSCOPY, SURGICAL, WITH DACRYOCYSTORHINOSTOMY-MURIEL performed by Trixie Cesar [facility] OR ??? Repair of nasal septum 05/29/2012 SEPTOPLASTY OR SMR, W/ OR W/O CARTILAGE SCORING, CONTOURING OR REPLACEMENT W/ GRAFT performed by Praneeth Cleveland MD at [facility] OR ??? Release of nasal adhesions 05/29/2012 LYSIS INTRANASAL SYNECHIA performed by Praneeth Cleveland MD at [facility] OR ??? Nasal/sinus scopy, surg tear duct 12/28/2012 NASAL, SINUS ENDOSCOPY, SURGICAL, WITH DACRYOCYSTORHINOSTOMY-MURIEL performed by Praneeth Cleveland MD at [facility] OR ??? Excision turbinate 12/28/2012 EXCISION, INFERIOR TURBINATE, PARTIAL OR COMPLETE performed by Praneeth Cleveland MD at [facility] OR ??? Remv f.b./stone in tear duct 07/02/2013 REMOVAL FOREIGN BODY OR DACRYOLITH, LACRIMAL PASSAGES performed by Praneeth Cleveland MD at [facility] OR Patient Active Problem List Diagnosis Code ??? 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 Chronic sinusitis 473.9 ??? Dacrocystitis 375.30 Current outpatient prescriptions:pregabalin (LYRICA) 50 mg capsule, Take 100 mg by mouth 3 times daily. Indications: Diabetic Peripheral Neuropathy, NEUROPATHIC PAIN ASSOCIATED WITH SPINAL CORD INJURY,Disp: , Rfl: ; morphine (MS CONTIN) 60 mg 12 hr tablet, Take 60 mg by mouth 2 times daily. , Disp: ,Rfl: ; warfarin (COUMADIN) 5 mg tablet, Take 5 mg by mouth daily. , Disp: , Rfl: morphine (MS CONTIN) 15 mg 12 hr tablet, Take 15 mg by mouth daily., Disp: , Rfl: ; citalopram (CELEXA) 10 mg tablet, Take 10 mg by mouth daily., Disp: , Rfl: ; Wise-3 Fatty Acids-Vitamin E (FISH OIL)1,000 mg Cap, Take by mouth., Disp: , Rfl: ; metoprolol succinate (TOPROL XL) 200 mg 24 hr tablet, 200mg, PO, Once daily, Disp: , Rfl: ; niacin (NIASPAN) 500 mg ER tablet, , Disp: , Rfl: losartan-hydrochlorothiazide (HYZAAR) 100-25 mg per tablet, , Disp: , Rfl: ; aspirin 81 mg tablet, Take 81 mg by mouth daily. , Disp: , Rfl: Allergies Allergen Reactions ??? Simvastatin CIS - periphreal neuropathy ??? Ibuprofen CIS - itching Family History Problem Relation Age of Onset ??? Retinal Detachment Neg Hx ??? Macular Degeneration Neg Hx ??? Glaucoma Neg Hx There is no pertinent family history of otolaryngology problems. History Social History ??? Marital Status: Spouse Name: N/A Number of Children: N/A ??? Years of Education: N/A Occupational History ??? Not on file. Social History Main Topics ??? Smoking status: Former Smoker -- 1.0 packs/day for 40 years Types: Cigarettes Quit date: 01/14/2010 ??? Smokeless tobacco: Never Used ??? Alcohol Use: 4.2 oz/week 7 Cans of beer per week Comment: 1 beer a day ??? Drug Use: No ??? Sexually Active: Other Topics Concern ??? Not on file Social History Narrative ??? No narrative on file Review of Systems Objective: Physical Exam Nursing note and vitals reviewed. Constitutional: He is oriented to person, place, and time. He appears well- developed and well-nourished. No distress. HENT: Head: Normocephalic. No trismus in the jaw. Right Ear: Tympanic membrane, external ear and ear canal normal. No tenderness. No middle ear effusion. Left Ear: Tympanic membrane, external ear and ear canal normal. No tenderness. No middle ear effusion. Nose: No mucosal edema, sinus tenderness, nasal deformity or septal deviation. Mouth/Throat: Uvula is midline, oropharynx is clear and moist and mucous membranes are normal. No oral lesions. No oropharyngeal exudate. Eyes: Conjunctivae normal and EOM are normal. Pupils are equal, round, and reactive to light. Right eye exhibits no chemosis, no discharge and no exudate. Left eye exhibits no chemosis, no discharge and no exudate. No scleral icterus. Neck: Normal range of motion. Neck supple. Carotid bruit is not present. No tracheal deviation present. No mass and no thyromegaly present. Pulmonary/Chest: Effort normal. No stridor. No respiratory distress. Lymphadenopathy: He has no cervical adenopathy. Neurological: He is alert and oriented to person, place, and time. He has normal reflexes. No cranial nerve deficit. Skin: Skin is warm. He is not diaphoretic. No erythema. Psychiatric: He has a normal mood and affect. His behavior is normal. Judgment and thought content normal. Procedure: Nasal and Sinus Endoscopy Indication: Evaluation of nasal cavity and sinuses. Technique: The nasal mucosae are topicalized with pontacaine/privine anesthesia and the nasal cavities are evaluated. The endoscope is passed in the nasal cavities without difficulty. Stent on the left is covered with crusted debris. No infection. Small granular area of old blood anterior left septum. No ulceration Assessment and Plan: Patient stable from his DCR standpoint. Needs to use irrigations on a regular basis. See in about 3 mo Abran Gordon - 09/23/2013 9:16 AM EDT HPI: Acosta Kay is a 62 y.o. male with past medical history of significant facial trauma in the past and currently on coumadin in the clinic for followup Recently stopped saline flush but then observe green drainage Left side nose bleed at the inside of nares documented in this encounter Plan of Treatment Not on filedocumented as of this encounter Visit Diagnoses Diagnosis History of dacryocystorhinostomy - Prima ry Other states following surgery of eye an d adnexa documented in this encounter Care Teams Run Lead Relationship Specialty Start Date End Date Anson Arboleda DO PCP - General 04/17/10 04/25/[address] [place] [address] documented as of this encounter
--- OUTSIDE RECORDS SUMMARY | 2021-11-16 01:24 | XMS_ITS | Encounter Summary ---
:1950 Author Organization [facility] Address [facility] [place] [address] Care Team Providers Name Role Phone Anson Arboleda DO Primary Care Provider Reason for Visit Consultation (Routine) - Closed Specialty Diagnoses / Procedures Referred By Contact Refer red To Contact Neurology Diagnoses PERIPHERAL POLYNEUROPATHY Anson Arboleda DO Lawson, Victoria H, MD [address] [facility] 1 NEUROLOGY [place], [place] [address] [place] [phone] Fax: Referral ID Status Reason Start Date Expiration Date Visits V isits Requested Authorized [id number] Closed Consult & 10/24/2016 10/24/2017 1 1 [facility] Encounter Details Date Type Department Care Team Description 12/10/2016 Procedure visit [place]rology [place] [facility] [place] Jimenes MD [facility] [place] [address] Peripheral [facility] Heaven Orosco DO [facility] [place] [address] [address] [place] [address] Social History Tobacco Use Types Packs/Day Years Used Date Former Smoker Cigarettes 1 40 Quit: 01/15/20 10 Smokeless Tobacco: Never Used Alcohol Use Standard Drinks/Week Comments Yes 7 (1 standard drink = 0.6 oz pure alcoho l) Sex Assigned at Date Recorded Not on file documented as of this encounter Last Filed Vital Signs Vital Sign Reading Time Taken Comments Blood Pressure 120/69 12/10/2016 9:26 AM EDT Pulse 69 12/10/2016 9:26 AM EDT Temperature - - Respiratory Rate - - Oxygen Saturation - - Inhaled Oxygen Concentration - - Weight 136.1 kg (300 lb) 12/10/2016 9:26 AM EDT Height 182.9 cm (6') 12/10/2016 9:26 AM EDT reported Body Mass Index 40.69 12/10/2016 9:26 AM EDT documented in this encounter Procedure Notes Heaven Orosco DO - 12/10/2016 10:00 AM EDT 66 yo man with pmhx of DM, hyperthyroidism, Afib on coumadin, HTN, depression presents for EMG/NCS for pain in hands and feet. Patient reports 4 years ago, he began to have a burning and tingling pain on the bottom of both feet. He then began to feel the same pain in his palm and fingertips in both hands. His symptoms are worsening. He has been put on lyrica and morphine 30mg bid for this pain. He isalso on cymbalta 60mg daily for depression, however, he continues to have pain. He thinks years ago he was tried on gabapentin, however, he does not recall if it helped or not and reports he thinks it was a low dose. He admits to feeling off balance as his feet are numb. He is unsure of his last A1C, but states his sugars are well controlled. He states he had borderline diabetes for many years, but started to require medication as of a year ago. He reports he has brothers who also have painful neuropathy. ROS: as per HPI. Otherwise negative PMHX: Afib on coumadin, DM, HTN, hyperthyroidism, depression PSHx: hernia repair, eye surgery Allergies: simvastatin, ibuprofen - becomes itchy Meds: levothyroxine, coumadin, cymbalta, morphine, lyrica, metformin SocHx: 10 years ago drank a 6 pack of beer a day, has cut down to 1 beer a day, quit smoking 5 yearsago, denies drug use FamHx- Father DM Physical Exam MS: AAO x 3, communicating appropriately CN: PERRL, EOMI, VFF, V1-V3 sensation intact, no facial asymmetry Motor: Deltoids R 5/5 L 5/5 Biceps R 5/5 L 5/5 Triceps R 5/5 L 5/5 Wrist extensors/flexors R 5/5 L 5/5 Finger flexors/extensors R 5/5 L 5/5 Finger abduction R 5/5 L 5/5 Hip flexion R 5/5 L 5/5 Knee Flexion R 5/5 L 5/5 Knee extension R 5/5 L 5/5 Dorsiflexion/eversion/inversion R 5/5 L 5/5 Plantar flexion R 5/5 L 5/5 Sensory: decreased sensation to LT, PP up to mid rivera b/l, decreased sensation to LT, PP in fingertips on palmar surface b/l, decreased sensation to vibration and position sense at feet and ankles. Sensation otherwise intact. Reflexes: absent ankle jerk and knee jerks b/l. 1+ BR, triceps and biceps b/l Gait: steady Head: NC/AT Eyes: no scleral icterus icterus Nose: nasal turbinates intact, no discharge Neck: Supple ROM intact Skin: intact no bruising or erythema Extremities: warm to touch, strength intact Joints: no swelling or erythema EMG/NCS was performed today to further classify symptoms. 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 Another documented detailing this exam will be scanned into system A/P 66 yo man with burning and tingling in hands and feet for 4 years 2/2 to combination of ulnar neuropathy and length dependent sensory axonal polyneuropathy; hereditary polyneuropathy is a consideration given family history and severity of nerve damage 1) Worsening Length dependent sensory axonal polyneuropathy Discussed genetic testing with patient and , and they would like to hold off at this time Reviewed EMG/NCS with patient Check SPEP w/ JAMILAH, Vitamin B12, ESR Patient would like to follow up with his primary care doctor for pain management at this time, wouldconsider gabapentin. 2) Ulnar neuropathy Bilateral elbow braces 3)F/u in 3 - 4 months to reevaluate how patients symptoms are I saw and evaluated the patient with Dr. Orosco. I have reviewed the resident's history during the visit and agree with the details as written. My neurological exam confirms the residents findings. Theassessment and plan were formulated in discussion with me at the time of the visit and I agree with them as documented. Though patient has diabetes he has not had it long enough to account for severity of length-dependent sensorimotor axonal polyneuropathy. Could be hereditary (+ FH) or could be related to hx of ETOH use (now sober), or could be another idiopathic reason. Will check for reversible causes with blood tests today. Genetic testing to look for hereditary neuropathy would be reasonable - we will discuss at the next visit and work on pain management for now. Max Jimenes MD 12/10/2016 documented in this encounter Plan of Treatment Not on filedocumented as of this encounter Results Vitamin B12 (12/10/2016 11:44 AM EDT) athologist Signature Vitamin B-12 419 207 - 974 [facility] pg/mL [facility] Specimen Anatomical Collection Method Collection Time Receive d Time (Source) Location / / Volume Laterality Blood specimen 12/10/2016 11:44 7 (specimen) AM EDT 11:49 AM EDT Resulting Agency Comment Spec In Lab Max Jimenes MD CHEMISTRY ORDERABLES Performing Organization Address City/[facility]/[place] [address] Sedimentation rate (12/10/2016 11:44 AM EDT) P athologist Signature Sed Rate 8 0 - 15 [facility] mm/hr [facility] Specimen Anatomical Collection Method Collection Time Receive d Time (Source) Location / / Volume Laterality Blood specimen 12/10/2016 11:44 7 (specimen) AM EDT 11:49 AM EDT Resulting Agency Comment Spec In Lab Max Jimenes MD HEMATOLOGY ORDERABLES Performing Organization Address City/[facility] [place] [address] Protein Electrophoresis, serum (12/10/2016 11:44 AM EDT) Patholo gist Method Time Signature Total Prot 6.9 6.1 - 8.0 MARILEE KLINE Elec gm/dL [facility] Albumin Elect 4.67 3.60 - MARILEE RAISA 6.00 [facility] LABORATORY Alpha1-Globul 0.17 0.10 - MARILEE RAMIREZRAISA in 0.30 [facility] LABORATORY Alpha2-Globul 0.63 0.40 - MARILEE RAISA in 0.90 [facility]/dL [facility] Beta Globulin 0.72 0.50 - [facility] RAISA 1.00 [facility] LABORATORY Gamma 0.70 0.50 [facility] Gl[facility] 1.30 [facility] LABORATORY M1 Band Comments MARILEE RAMIREZRAISA Below [facility] SPEP Comments See Note [facility] Comment: Serum protein electrophoresis (PEP) show s a band that is a possible paraprotein. Immunofixation (JAMILAH) and qu antitative immunoglobulin (MARISSA) testing will be performed on this sample to veri fy that it is a monoclonal immunoglobulin. Specimen Anatomical Collection Method Collection Time Receive d Time (Source) Location / / Volume Laterality Blood specimen 12/10/2016 11:44 7 (specimen) AM EDT 11:49 AM EDT Narrative This result has an attachment that is no t available. 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
--- OUTSIDE RECORDS SUMMARY | 2021-11-16 01:24 | XMS_ITS | Encounter Summary ---
:1950 Author [address] [facility] [place] [place] [address] Care Team Providers Name Role Phone RoblesAnson yang Primary Care Provider Encounter Details Date Type Department Care Team Description 10/23/2016 Hospital En[facility] [place] [address] NEUROLOGY DEPT [phone] [place], [place] [address] (Wo rk) Social History Tobacco [...] on file documented as of this encounter Medications at Time of Discharge Medication Sig Dispensed Refills Start Date End Date DULoxetine (CYMBALTA) Take 1 capsule by 0 017 60 mg Capsule, Delayed mouth daily. Release(E.C.) morphine (MS CONTIN) 30 Take 30 mg by mouth 2 0 mg Tablet Sustained times daily. Release pravastatin (PRAVACHOL) Take 40 mg by mouth 0 40 mg Tablet daily. warfarin (COUMADIN) 5 Take by mouth daily. 0 mg tablet [place]-3 Fatty Take 1 capsule by 0 Acids-Vitamin E (FISH mouth daily. OIL) 1,000 mg Cap pregabalin (LYRICA) 50 Take 100 mg by mouth 3 0 12/10/2016 mg capsuleIndications: times daily. diabetic peripheral Indications: Diabetic neuropathy, neuropathic Peripheral Neuropathy, pain associated with NEUROPATHIC PAIN spinal cord injury ASSOCIATED WITH SPINAL CORD INJURY morphine (MS CONTIN) 60 Take 60 mg by mouth 2 0 12/10/2016 mg 12 hr tablet times daily. morphine (MS CONTIN) 15 Take 15 mg by mouth 0 12/10/2016 mg 12 hr tablet daily. citalopram (CELEXA) 10 Take 10 mg by mouth 0 12/10/2016 mg tablet daily. losartan-hydrochlorothi 0 06/25/2006 0 12/10/2016 azide (HYZAAR) 100-25 mg per tablet documented as of this encounter Plan of Treatment Not on filedocumented as of this encounter Procedures Procedure Name Priority Date/Time Associated Diagnosis Comme nts FILM LIBRARY Routine 10/23/2016 12:00 AM Pain Results for this STORAGE ONLY CT EDT procedure ar e in HEAD the results section. documented in this encounter Results Film Library- Storage Only CT Head (10/23/2016 12:00 AM EDT) Specimen (Source) Anatomical Location Collection Method / Collectio n Time Received Time / Laterality Volume Narrative CARMEN - 10/24/2016 1:43 PM EDT This exam is for storage only and is aut o-finalizing. 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
--- OUTSIDE RECORDS SUMMARY | 2021-11-16 01:24 | XMS_ITS | Encounter Summary ---
:1950 [place] [address] Care Team Providers Name Role Phone Anson Arboleda Primary Care Provider Encounter Details Date Type Department Care Team Description 12/10/2016 Laboratory Lab 3L [place] Peripheral Appointment [facility] [place] [id number] Social History Tobacco Use Types Packs/Day Years Used Date Former Smoker Cigarettes 1 40 Quit: 01/15/20 10 Smokeless Tobacco: Never Used Alcohol Use Standard Drinks/Week Comments Yes 7 (1 standard drink = 0.6 oz pure alcoho l) Sex Assigned at Date Recorded Not on file documented as of this encounter Plan of Treatment Not on filedocumented as of this encounter Procedures Procedure Name Priority Date/Time Associated Diagnosis Comme nts IMMUNOGLOBULINS, Routine 12/10/2016 11:44 Results for this QUANTITATIVE AM EDT procedure are i n the results section. IMMUNOFIXATION Routine 12/10/2016 11:44 Results f or this ELECTROPHORESIS AM EDT procedure ar e in the results section. SEDIMENTATION RATE Routine 12/10/2016 11:44 Peripheral Resul ts for this AM EDT sensory-motor axonal procedu re are in polyneuropathy the results section. PROTEIN Routine 12/10/2016 11:44 Peripheral Results for this ELECTROPHORESIS, SERUM AM EDT sensory-motor axon al procedure are in polyneuropathy the results section. VITAMIN B12 Routine 12/10/2016 11:44 Peripheral Results for this AM EDT sensory-motor axonal procedu re are in polyneuropathy the results section. documented in this encounter Results Immunofixation Electrophoresis (12/10/2016 11:44 AM EDT) athologist Signature JAMILAH See Note [facility] Comment: No specific abnormality observed. Dr. Tru Biggs 12/12/16 Please see scanned report in Chart Revie w under the [facility] Laboratory Heading. Specimen Anatomical Collection Method Collection Time Receive d Time (Source) Location / / Volume Laterality Blood specimen Venous Draw / 12/10/2016 11:44 12/11/19 17 (specimen) Unknown AM EDT 12:10 PM EDT Narrative This result has an attachment that is no t available. Resulting Agency Comment Spec In Lab Max Jimenes MD CHEMISTRY ORDERABLES Performing Organization Address City/State/ZIP Code Phon e Number [address] (ABNORMAL) Immunoglobulins, Quantitative (12/10/2016 11:44 AM EDT) athologist Signature IgG 918 700 - 1,600 [facility]/dL [facility] IgA 181 70 - 400 [facility] mg/dL [facility] IgM 37 (L) 40 - 230 [facility] RA[facility] mg/dL [facility] Specimen Anatomical Collection Method Collection Time Receive d Time (Source) Location / / Volume Laterality Blood specimen Venous Draw / 12/10/2016 11:44 12/11/19 17 (specimen) Unknown AM EDT 12:10 PM EDT Resulting Agency Comment Spec In Lab Max Jimenes MD CHEMISTRY ORDERABLES Performing Organization Address City/State/[place] [address] Vitamin B12 (12/10/2016 11:44 AM EDT) athologist Signature Vitamin B-12 419 207 - 974 [facility] pg/mL [facility] Specimen Anatomical Collection Method Collection Time Receive d Time (Source) Location / / Volume Laterality Blood specimen 12/10/2016 11:44 7 (specimen) AM EDT 11:49 AM EDT Resulting Agency Comment Spec In Lab Max Jimenes MD CHEMISTRY ORDERABLES Performing Organization Address City/State/ZIP Code Phon e Number [place] [address] Sedimentation rate (12/10/2016 11:44 AM EDT) P athologist Signature Sed Rate 8 0 - 15 [facility] mm/hr [facility] Specimen Anatomical Collection Method Collection Time Receive d Time (Source) Location / / Volume Laterality Blood specimen 12/10/2016 11:44 7 (specimen) AM EDT 11:49 AM EDT Resulting Agency Comment Spec In Lab Max Jimenes MD HEMATOLOGY ORDERABLES Performing Organization Address City/[facility]/ZIP Code Phon e Number [address] Protein Electrophoresis, serum (12/10/2016 11:44 AM EDT) Patholo gist Method Time Signature Total Prot 6.9 6.1 - 8.0 [facility] Elec gm/dL [facility] Albumin Elect 4.67 3.60 - [facility] [address] [facility]ORY Alpha1-Globul 0.17 0.10 - [facility] in 0.[address] [facility] LABORATORY Alpha2-Globul 0.63 0.40 - [facility] in [address] [facility] LABORATORY Beta Globulin 0.72 0.50 - [facility] [address] [facility]ORY Gamma 0.70 0.50 - [facility] Globulin [address] 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
--- OUTSIDE RECORDS SUMMARY | 2021-11-16 01:24 | XMS_ITS | Encounter Summary ---
:1950 [place] [address] Care Team Providers Name Role Phone RoblesAnson Primary Care Provider Encounter Details Date Type Department Care Team Description 07/02/2013 [facility] [address] [place] [address] [place] [address] [phone] (Wo rk) Social History Tobacco Use Types Packs/Day Years Used Date Former Smoker 1 40 Quit: 01/15/20 10 Smokeless Tobacco: [...] Sign Reading Time Taken Comments Blood Pressure 116/63 07/02/2013 4:15 PM EST Pulse 93 07/02/2013 4:15 PM EST Temperature 36 ??C (96.8 ??F) 07/02/2013 3:43 PM EST Respiratory Rate 18 07/02/2013 4:15 PM EST Oxygen Saturation 95% 07/02/2013 4:15 PM EST Inhaled Oxygen Concentration - - Weight 140.6 kg (310 lb) 07/02/2013 2:11 PM EST Height 182.9 cm (6') 07/02/2013 2:11 PM EST Body Mass Index 42.04 07/02/2013 2:11 PM EST documented in this encounter Discharge Instructions Discharge InstructionsDanica Hudson RN - 07/02/2013 3:53 PM EST POST ANESTHESIA INSTRUCTIONS Go home, rest, use caution on stairs. Change positions slowly. Do not smoke if you are alone. Diet light to regular as tolerated today. If nausea occurs start with clear liquids and progress slowly. No driving, operating machinery, alcoholic beverages and no important decisions for 24 hours. Monitor IV site for signs and symptoms of infection: increasing redness, swelling, foul drainage, ifoccurs contact M.D. Patients who have had endotrachial tubes (this tube, used by anesthesia department, is passed down your throat after you are asleep, to ensure safe air passage during your operation). A sore throat is normal due to the tube. Cold liquids or soothing lozenges will help ease the discomfort. The generalized muscle aches are due to the medication given to you just before the tube is inserted. As the medication wears off, you may develop muscle soreness, which usually goes away in 12-24 hours. Patient InstructionsLashae Dooley MD - 07/02/2013 3:43 PM EST Discharge Instructions Diet: resume regular diet Activity : resume baseline activity Medications: resume home medications. Start polysporin eye ointment tomorrow. Contact Information: ?? You can reach the ENT nurse at for questions you have during the day. [facility] textile cutting machine operator can be reached at and can connect youwith a resident workers compensation defense attorney if necessary after hours. If you need to reschedule your appointment please call the clinic at . documented in this encounter Medications at Time of Discharge Medication Sig Dispensed Refills Start Date End Date warfarin (COUMADIN) 5 Take by mouth daily. 0 mg tablet Hesperus-3 Fatty Take 1 capsule by 0 Acids-Vitamin E (FISH mouth daily. OIL) 1,000 mg Cap bacitracin-polymyxin b Place into the right 3.5 g 0 11/201307/16/2013 (POLYSPORIN) ophthalmic eye every 12 hours for ointment 14 days. pregabalin (LYRICA) 50 Take 100 mg by mouth 3 0 12/10/2016 mg capsuleIndications: times daily. diabetic peripheral Indications: Diabetic neuropathy, neuropathic Peripheral Neuropathy, pain associated with NEUROPATHIC PAIN spinal cord injury ASSOCIATED WITH SPINAL CORD INJURY morphine (MS CONTIN) 60 Take 60 mg by mouth 2 0 12/10/2016 mg 12 hr tablet times daily. aspirin 81 mg tablet Take 81 mg by mouth 0 03/31/2014 daily. morphine (MS CONTIN) 15 Take 15 mg by mouth 0 12/10/2016 mg 12 hr tablet daily. citalopram (CELEXA) 10 Take 10 mg by mouth 0 12/10/2016 mg tablet daily. niacin (NIASPAN) 500 mg 0 06/25/2006 1 05/31/2013 ER tablet losartan-hydrochlorothi 0 06/25/2006 0 12/10/2016 azide (HYZAAR) 100-25 mg per tablet documented as of this encounter H&P Notes Jermaine Cleveland MD - 07/02/2013 2:26 PM EST Patient Name: Acosta Kay Patient Age: 62 y.o. Birthdate: 1950 Admit date: 07/02/2013 Attending Physician: Jermaine Cleveland MD HPI: Patient s/p muriel DCR done last year. Presented to the office 72 hours ago with feeling R Sweeney tube was displaced. Multiple attempts at removal in the office, however intolerant in view of pain. We discussed taking him to the OR to facilitate removal. Past Medical History Diagnosis Date ??? Trauma ??? Neuromuscular disorder ??? Hyperlipidemia ??? Cardiac disease ??? Diabetes mellitus ??? Atrial fibrillation, chronic ??? COPD (chronic obstructive pulmonary disease) ??? Hypertension Past Surgical History Procedure Date ??? Nasal scopy, rmv tiss maxill sinus 04/03/2012 NASAL, SINUS ENDOSCOPY, REMOVE TISSUE MAXILLARY SINUS, MURIEL performed by SHI TURNER at [facility] MAIN OR ??? Nasal scopy, remv totl ethmoid 04/03/2012 NASAL, SINUS ENDOSCOPY, TOTAL ETHMOIDECTOMY-MURIEL performed by SHI TURNER at [facility] MAIN OR ??? Nasal/sinus scopy, surg tear duct 05/29/2012 NASAL, SINUS ENDOSCOPY, SURGICAL, WITH DACRYOCYSTORHINOSTOMY-MURIEL performed by Trixie Cesar [facility] MAIN OR ??? Repair of nasal septum 05/29/2012 SEPTOPLASTY OR SMR, W/ OR W/O CARTILAGE SCORING, CONTOURING OR REPLACEMENT W/ GRAFT performed by Jermaine Cleveland MD at [facility] MAIN OR ??? Release of nasal adhesions 05/29/2012 LYSIS INTRANASAL SYNECHIA performed by Jermaine Cleveland MD at [facility] MAIN OR ??? Nasal/sinus scopy, surg tear duct 12/28/2012 NASAL, SINUS ENDOSCOPY, SURGICAL, WITH DACRYOCYSTORHINOSTOMY-MURIEL performed by Jermaine Cleveland MD at [facility] MAIN OR ??? Excision turbinate 12/28/2012 EXCISION, INFERIOR TURBINATE, PARTIAL OR COMPLETE performed by Jermaine Cleveland MD at [facility] MAIN OR Patient Active Problem List Diagnosis Code ??? 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 Chronic sinusitis 473.9 ??? Dacrocystitis 375.30 Current facility-administered medications:sodium chloride 0.9 % flush 5 mL, 5 mL, Intravenous, Q12H,Lydia Levy MD; lactated ringers infusion 1,000 mL, 1,000 mL, Intravenous, Continuous, Lydia Levy MD Allergies Allergen Reactions ??? Simvastatin CIS - [...] Smoker -- 1.0 packs/day for 40 years Quit date: 01/14/2010 ??? Smokeless tobacco: Never Used ??? Alcohol Use: 4.2 oz/week 7 Cans of beer per week Comment: 1 beer a day ??? Drug Use: No ??? Sexually Active: Other Topics Concern ??? Not on file Social History Narrative ??? No narrative on file GENERAL: Well developed, well appearing, no acute distress. Vitals reviewed. Pickwickian appearance HEAD/FACE/EYES: Normocephalic with no gross deformity. Extraocular movements intact. Has Sweeney tube OD partially extruded Sweeney tube OS intact EARS: Normal exam of the external ear, ear canal, and middle ear. NOSE: External nasal exam: rhinophyma, healed laceration on mid dorsum, tip support appropriate. Nasal brooklynn normal. Septum left of midline. Turbinates are normal. SALIVARY: Parotid and submandibular glands are normal to inspection and palpation. ORAL CAVITY: Normal exam of oral tongue Normal mucosa without lesion Floor of mouth is soft. Dentition good repair OROPHARYNX: Normal tonsils. Normal soft palate and uvula. Posterior pharyngeal wall normal. NECK: No asymmetry on inspection No adenopathy. Normal thyroid. RESPIRATORY: Normal voice. No stridor. Normal respirations. No wheezing. CV: Normal carotid pulses. Heart sounds, but distant, A fib SKIN: Normal skin survey of the head and neck region. MUSCULOSKELETAL: Normal neck range of motion. No trismus. NEURO/PSYCH: Normal affect. Alert and oriented x 3. Responds appropriately to questions. CN II-XII grossly intact. A/P Discussed pro-cons of surgery. Patient held anticoagulation for today's procedure. Consent signed, patient marked documented in this encounter Miscellaneous Notes Miscellaneous - Provider, Scanning - 07/02/2013 9:08 PM EST Miscellaneous - Provider, Scanning - 07/02/2013 9:08 PM EST Miscellaneous - Randi Kenney - 07/02/2013 4:28 PM EST OR Attestation - Jermaine Cleveland MD - 07/02/2013 3:49 PM EST Attestation: Case Date: 07/02/2013 I was present and I participated during the entire procedure (does not need to include opening and closing). JERMAINE CLEVELAND MD 07/02/2013 Op Note - Lashae Dooley MD - 07/02/2013 3:35 PM EST [facility] Operative Note Patient Name: Acosta Kay : [id number] MR#: [id number] Case Date: 07/02/2013 Surgeon: Surgeon(s) and Role: * Jermaine Cleveland MD - Primary * Lashae Dooley MD - Resident-Surgeon Candelario Preoperative diagnosis: RETAINED STENT Postoperative diagnosis: RETAINED STENT Procedure(s): REMOVAL FOREIGN BODY OR DACRYOLITH, LACRIMAL PASSAGES Anesthesia: General Estimated Blood Loss: 5cc Drains: none Disposition: awakened from anesthesia, extubated and taken to the recovery room in a stable condition, having suffered no apparent untoward event. Condition: doing well without problems (Please see the Surgical Encounter Summary for any Implant and Specimen details pertinent to this patient.) HPI/Surgical Indications: Acosta Kay is a 62 y.o. man s/p DCR bilaterally who has a stent partially in place. He presents for right stent removal. Procedure Description: The patient was taken to the operating room, placed in the supine position, and general anesthesia via LMA (laryngeal mask) was achieved without complication. The nasal passages were decongested with Afrin soaked pledgets. A 4mm endoscope was used to examine the nasal cavity. With simultaneous pressure on the stent at the punctum, it was visualized where thestent would exit the mucosa in the nasal passage. There was significant scarring around this region.After mild dissection of the nasal mucosa, the stent was able to be removed from the eye. The patient was then returned to anesthesia, allowed to awaken, and taken out of the operating room in good condition. The patient tolerated the procedure well without complication. Findings: Right lacrimal stent partially in place with slack at the punctum Thickened mucosa and scarring over the exit in the nasal passage Right stent removed documented in this encounter Plan of Treatment Not on filedocumented as of this encounter Procedures Procedure Name Priority Date/Time Associated Comments Diagnosis POCT GLUCOSE Routine 07/02/2013 3:50 PM Results f or this EST procedure are i n the results section. REMOVAL FOREIGN BODY Routine 07/02/2013 3:33 PM OR DACRYOLITH, EST LACRIMAL PASSAGES REMOVAL FOREIGN BODY 07/02/2013 2:51 PM RETAINED STENT OR DACRYOLITH, EST LACRIMAL PASSAGES (WRVU 3.7) PROTHROMBIN TIME STAT 07/02/2013 2:27 PM Resul ts for this EST procedure are i n the results section. documented in this encounter Results POCT Glucose (07/02/2013 3:50 PM EST) athologist Signature POC Glucose 103 60 - 199 CERNER mg/dL MILLENNIUM Comment: Supplemental ranges: <110 mg/dL before meals <200 mg/dL all other times of the day Specimen Anatomical Collection Method Collection Time Receive d Time (Source) Location / / Volume Laterality Blood specimen 07/02/2013 3:50 PM 014 3:50 (specimen) EST PM EST Jermaine Cleveland MD POINT OF CARE TEST ORDERABLE S Performing Organization Address City/State/[place] [address] CERNER MILLENNIUM (ABNORMAL) Prothrombin Time (07/02/2013 2:27 PM EST) athologist Signature PT 20.3 (H) 12.0 - 15.0 CERNER sec MILLENNIUM Comment: [facility] Transfusion Committee Guidelines: I NR less than 2.0, PTT less than OR equal to 43.5 seconds, or Fibrinogen gre ater than or equal to 100 mg/dl indicate adequate procoagulant activity for hemostasis in patients without underlying bleeding disorders. INR 1.7 (H) 0.9 - 1.1 [employer] Specimen Anatomical Collection Method Collection Time Receive d Time (Source) Location / / Volume Laterality Blood specimen 07/02/2013 2:27 PM 014 2:42 (specimen) EST PM EST Resulting Agency Comment Spec In Lab Jermaine Cleveland MD HEMATOLOGY ORDERABLES Performing Organization Address City/State/[place]IP [place] [address] [employer] documented in this encounter Visit Diagnoses Not on filedocumented in this encounter Active and Recently Administered Medications Times are shown in EST. Scheduled Medication Order 06/30/2013 07/01/2013 07/02/2013 ampicillin-sulbactam (UNASYN) 1.5 g vial attach to sodium chloride 0.9% 50 mL Mini-Bag Plus (COMPLETED) 1515 (Given - Provider: Lydia Levy MD) 1.5 g, Intravenous, 30 MIN PRE-OP, 1 dos e, 07/03/13 at 0000, for 30 Minutes, Indication for (Active or Suspected): Prophylaxis Continuous Medication Order 06/30/2013 07/01/2013 07/02/2013 lactated ringers infusion 1,000 mL (CANCELED) 1445 (Due)1506 (New Bag - Provider: Lydia Levy MD)1521 (Anesthesia Volume Adjustment - Provider: Lydia Levy MD) 1,000 mL, at 100 mL/hr, Intravenous, CON TINUOUS, Starting Fri07/02/13 at 1445, Until Fri07/02/13 at 1640, Day of Surgery (Day of Procedure) PRN Medication Order 06/30/2013 07/01/2013 07/02/2013 oxymetazoline (AFRIN) 0.05 % nasal spray (CANCELED) 1520 (Given - Provider: Jermaine Cleveland MD - Comment: 30ml Afrin solution, saoking nasal patties for nasal packing.) ONCE PRN, Starting 07/02/13 at 1520, U ntil Fri07/02/13 at 1640, Congestion, 4Th Grade Math Teacher recommended duration is 3 days., Intra-Operative (Intra-Procedure), Routine documented in this encounter Care Teams Materials Planner/Production Planner Relationship Specialty Start Date End Date Anson Arboleda DO PCP - General 04/17/10 04/25/[address] [place] [address] documented as of this encounter
--- OUTSIDE RECORDS SUMMARY | 2021-11-16 01:24 | XMS_ITS | Encounter Summary ---
:1950 Author Organization [facility] [place] [address] Care Team Providers Name Role Phone Anson Arboleda DO Primary Care Provider Encounter Details Date Type Department Care Team Description 06/28/2014 Telephone Otolaryngology at [facility] [place] [address] Social History Tobacco Use Types Packs/Day Years [...] on file documented as of this encounter Miscellaneous Notes Telephone Encounter - Oliverio Man - 06/28/2014 1:34 PM EST Sent September [address] Cleveland. documented in this encounter Plan of Treatment Not on filedocumented as of this encounter Visit Diagnoses Not on filedocumented in this encounter Care Teams Unit Trust Manager Relationship Specialty Start Date End Date Anson Arboleda DO PCP - General 04/17/10 04/25/[address] [place] [address] documented as of this encounter
--- OUTSIDE RECORDS SUMMARY | 2021-11-16 01:24 | XMS_ITS | Encounter Summary ---
:1950 Author Organization [facility] [place] [address] Care Team Providers Name Role Phone Rashard Chowdhury MD Primary Care Provider Reason for Visit Reason Onset Date Comments Appointment 05/02/2021 Encounter Details Date Type Department Care Team Description 05/02/2021 Telephone Endocrinology at [facility] [place] [address] Social History Tobacco Use Types Packs/Day Years Used Date Former Smoker Cigarettes 1 40 Quit: 01/15/20 10 Smokeless Tobacco: Never Used Alcohol Use Standard Drinks/Week Comments Yes 7 (1 standard drink = 0.6 oz pure alcoho l) Sex Assigned at Date Recorded Not on file documented as of this encounter Miscellaneous Notes Telephone Encounter - Lolita Victorai I - 05/02/2021 9:16 AM EST Unable to contact patient to schedule from referral. Letter sent and referral closed documented in this encounter Plan of Treatment Not on filedocumented as of this encounter Visit Diagnoses Not on filedocumented in this encounter Care Teams Radio Personality Relationship Specialty Start Date End Date Rashard Chowdhury MD PCP - General Family Medicine 04/26/[address] [place] [address] documented as of this encounter
--- OUTSIDE RECORDS SUMMARY | 2021-11-16 01:24 | XMS_ITS | Encounter Summary ---
:1950 Author Organization [facility] [employer] Address [address] [place] [address] Care Team Providers Name Role Phone RoblesAnson yang Primary Care Provider Reason for Visit Reason Comments Follow-up having nose bleeds Encounter Details Date Type Department Care Team Description 09/27/2014 Follow-Up Otolaryngology at [facility] Praneeth Cleveland Epistaxis; [facility] Katerina Vick MD Epip[place], [place] [address] [facility] [phone] OTOLARYNGOLOGY DEPT. [place], [place] [address] Social History Tobacco Use Types Packs/Day Years [...] Sign Reading Time Taken Comments Blood Pressure 106/62 09/27/2014 10:29 AM EDT Pulse 63 09/27/2014 10:29 AM EDT Temperature - - Respiratory Rate - - Oxygen Saturation - - Inhaled Oxygen Concentration - - Weight 142 kg (313 lb) 09/27/2014 10:29 AM EDT Height 182.9 cm (6') 09/27/2014 10:29 AM EDT Body Mass Index 42.45 09/27/2014 10:29 AM EDT documented in this encounter Progress Notes Praneeth Cleveland MD - 09/27/2014 12:36 PM EDT Images from the original note were not included. Subjective: Patient ID: Acosta Kay is a 63 y.o. male. HPI Patient with hx of [...] When wakes up in the morning has less thick drainage from left side than last year. With saline irrigations does not occur. . No pain, no headache. Denies sinus symptoms. No change in smell/tasteVery pleased about outcome sofar. Has not been compliant with irrigations of his nose. Has had left sided nosebleeds in the alst 2-3 weeks, only left sided, brief 1-2 min. Stop with applying kleenex Past Medical History Diagnosis Date ??? Trauma ??? Neuromuscular disorder ??? Hyperlipidemia ??? Cardiac disease ??? Diabetes mellitus ??? Atrial fibrillation, chronic ??? COPD (chronic obstructive pulmonary disease) ??? Hypertension Past Surgical History Procedure Laterality Date ??? Nasal scopy, rmv tiss maxill sinus 04/03/2012 NASAL, SINUS ENDOSCOPY, REMOVE TISSUE MAXILLARY SINUS, MURIEL performed by SHI TURNER at [facility] MAIN OR ??? Nasal scopy, remv totl ethmoid 04/03/2012 NASAL, SINUS ENDOSCOPY, TOTAL ETHMOIDECTOMY-MURIEL performed by SHI TURNER at [facility] MAIN OR ??? Nasal/sinus scopy, surg tear duct 05/29/2012 NASAL, SINUS ENDOSCOPY, SURGICAL, WITH DACRYOCYSTORHINOSTOMY-MURIEL performed by Praneeth Cleveland MDat [facility] MAIN OR ??? Repair of nasal septum 05/29/2012 SEPTOPLASTY OR SMR, W/ OR W/O CARTILAGE SCORING, CONTOURING OR REPLACEMENT W/ GRAFT performed by Praneeth Cleveland MD at [facility] MAIN OR ??? Release of nasal adhesions 05/29/2012 LYSIS INTRANASAL SYNECHIA performed by Praneeth Cleveland MD at [facility] MAIN OR ??? Nasal/sinus scopy, surg tear duct 12/28/2012 NASAL, SINUS ENDOSCOPY, SURGICAL, WITH DACRYOCYSTORHINOSTOMY-MURIEL performed by Praneeth Cleveland MD at [facility] MAIN OR ??? Excision turbinate 12/28/2012 EXCISION, INFERIOR TURBINATE, PARTIAL OR COMPLETE performed by Praneeth Cleveland MD at [facility] MAIN OR ??? Remv f.b./stone in tear duct 07/02/2013 REMOVAL FOREIGN BODY OR DACRYOLITH, LACRIMAL PASSAGES performed by Praneeth Cleveland MD at [facility] MAIN OR Patient Active Problem List Diagnosis Code ??? 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 Chronic sinusitis 473.9 ??? Dacrocystitis 375.30 Current outpatient prescriptions:pravastatin (PRAVACHOL) 40 mg Tablet, Take 40 mg by mouth daily., Disp: , Rfl: ; pregabalin (LYRICA) 50 mg capsule, Take 100 mg by mouth 3 times daily. Indications: Diabetic Peripheral Neuropathy, NEUROPATHIC PAIN ASSOCIATED WITH SPINAL CORD INJURY, Disp: , Rfl: ; morphine (MS CONTIN) 60 mg 12 hr tablet, Take 60 mg by mouth 2 times daily. , Disp: , Rfl: warfarin (COUMADIN) 5 mg tablet, Take 5 mg by mouth daily. , Disp: , Rfl: ; morphine (MS CONTIN) 15 mg 12 hr tablet, Take 15 mg by mouth daily., Disp: , Rfl: ; citalopram (CELEXA) 10 mg tablet, Take 10mg by mouth daily., Disp: , Rfl: ; Mcintosh-3 Fatty Acids-Vitamin E (FISH OIL) 1,000 mg Cap, Take by mouth., Disp: , Rfl: ; metoprolol succinate (TOPROL XL) 200 mg 24 hr tablet, 200mg, PO, Once daily, Disp: , Rfl: losartan-hydrochlorothiazide (HYZAAR) 100-25 mg per tablet, , Disp: , Rfl: Allergies Allergen Reactions [...] Topics ??? Smoking status: Former Smoker -- 1.00 packs/day for 40 years Types: Cigarettes Quit date: 01/14/2010 ??? Smokeless tobacco: Never Used ??? Alcohol Use: 4.2 oz/week 7 Cans of beer per week Comment: 1 beer a day ??? Drug Use: No ??? Sexual Activity: Not on file Other Topics Concern ??? Not on file Social History Narrative Review of Systems Objective: Physical Exam Constitutional: He is oriented to person, place, and time. He appears well- developed and well-nourished. No distress. HENT: Head: Normocephalic. Right Ear: Tympanic membrane, external ear and ear canal normal. No tenderness. No middle ear effusion. Left Ear: Tympanic membrane, external ear and ear canal normal. No tenderness. No middle ear effusion. Nose: No mucosal edema, sinus tenderness, nasal deformity or septal deviation (small mound of vascular tissue mid anterior left septum). Mouth/Throat: Uvula is midline, oropharynx is clear and moist and mucous membranes are normal. No oral lesions. No trismus in the jaw. No oropharyngeal exudate. Eyes: Conjunctivae and EOM are normal. Pupils are equal, round, and reactive to light. Right eye exhibits no chemosis, no discharge and no exudate. Left eye exhibits no chemosis, no discharge and no exudate. No scleral icterus. Neck: Normal range of motion. Neck supple. Carotid bruit is not present. No tracheal deviation present. No thyroid mass and no thyromegaly present. Pulmonary/Chest: Effort [...] is normal. Judgment and thought content normal. Nursing note and vitals reviewed. Procedure: Nasal and Sinus Endoscopy Indication: Evaluation of nasal cavity and sinuses. Technique: The nasal mucosae are topicalized with pontacaine/privine anesthesia and the nasal cavities are evaluated. The endoscope is passed in the nasal cavities without difficulty. Stent on the left is covered with some crusted debris. 3mm mound of vascular tissue on the anterior septum. No infection. No ulceration. R side open, no lesion nor granulation tissue Assessment and Plan: Patient stable from his DCR standpoint. Needs to use irrigations on a regular basis. Cautery of nasal bleeder: Site noted on the left septum. Mucosalized with pontacaine/privine over pledgets. Cauterized with AgNO3.Bacitracin applied. Good effect See in about 6-9 mo documented in this encounter Plan of Treatment Not on filedocumented as of this encounter Visit Diagnoses Diagnosis Epistaxis Epiphora, bilateral Epiphora, unspecified as to cause documented in this encounter Care Teams Tree Doctor Relationship Specialty Start Date End Date Anson Arboleda DO PCP - General 04/17/10 04/25/[address] [facility] [address] [place] [address] documented as of this encounter
--- OUTSIDE RECORDS SUMMARY | 2021-11-16 01:24 | XMS_ITS | Encounter Summary ---
:1950 Author Organization [facility] [place] [address] Care Team Providers Name Role Phone Anson Arboleda DO Primary Care Provider Encounter Details Date Type Department Care Team Description 12/11/2016 External Results Neurology at [facility] Max Jimenes [facility] [place] [address] Neurology [phone] [place], [place] [phone] (Wo rk) Social History Tobacco Use Types [...] Name Priority Date/Time Associated Diagnosis Comme nts EMG SCAN Routine 12/10/2016 documented in this encounter Results Scan Doc: EMG (12/10/2016) Narrative This result has an attachment that is no t available. Max Jimenes MD MEDIA MGR SCAN EXT ORDR/RSLT documented in this encounter Visit Diagnoses Not on filedocumented in this encounter Care Teams Schedule Planning Manager Relationship Specialty Start Date End Date Anson Arboleda DO PCP - General 04/17/10 04/25/[address] [place] [address] documented as of this encounter
--- OUTSIDE RECORDS SUMMARY | 2021-11-16 01:24 | XMS_ITS | Encounter Summary ---
:1950 [place] [address] Care Team Providers Name Role Phone Anson Arboleda DO Primary Care Provider Encounter Details Date Type Department Care Team Description 07/02/2013 Anesthesia Event Main Operating Room Gladys Nance MD [facility] [place] [address] [facility] Lydia Levy MD [facility] [place] [address] [place] [address] Anesthesia Record Procedure Summary Procedure Name Responsible Anesthesia Start Anesthesia Stop Time Anesthesiologist Time REMOVAL FOREIGN Gladys Villafuerte MD 07/02/13 1457 07/02/13 1550 BODY OR DACRYOLITH, LACRIMAL PASSAGES (WRVU 3.7) (Right Eye) Events Date Time Event Comment 07/02/2013 1441 1457 Start 1506 AN Verify 1506 An Start Data 1509 An Induction 1510 An Intubation 1510 Anesthesia Ready 1538 Extubation/LMA Out 1538 an stop data 1550 Stop Name Total fentaNYL 25 mcg IV Lidocaine 40 mg Propofol 200 mg Ondansetron 4 mg Dexamethasone 4 mg ampicillin-sulbactam (UNASYN) 1.5 g vial attach to sod ium chloride 0.9% 50 mL 1.5 g Mini-Bag Plus lactated ringers infusion 1,000 mL 0 mL Agents Name O2 Air Sevoflurane (et) Blood No blood administrations on file. Lines, Drains, and Airways Type Details Placement Removal (RETIRED) Arterial 20 04/03/12 0000 by LIne My Mittal RN Incision 04/03/12; other (see 04/03/12 0000 by comments) (Left sinus) My Mittal RN Incision 05/29/12; nose (Nose.) 05/29/12 0000 by Destinee Pedersen RN (RETIRED) Arterial 20 05/29/12 0000 by LIne Destinee Pedersen RN Incision 05/29/12; eye 05/29/12 0000 by (Eye/lacrimal duct) Destinee Pedersen RN Incision 12/28/12; eye 12/28/12 0000 by My Mittal RN Incision 12/28/12; nostril 12/28/12 0000 by My Mittal RN Incision 07/02/13; 1520; 07/02/13 1520 by nostril (scope via Reema Corona RN nostril to right eye.) PIV 07/02/13; 1434; 07/02/13 1434 by 07/02/13 1639 b y 07/02/13; 1639 Manuela Sultana RN McAlister, Janet E, RN (RETIRED) Mask Ventilation: Easy 07/02/13 1510 by 07/02/13 1538 by Non-Surgical Airway (1) (2 handed mask Lydia Levy MD Ston e, Allyson H, MD secondary to size); LMA Size: 4 documented in this encounter Social History Tobacco Use Types Packs/Day Years [...] on file documented as of this encounter OR Notes Anesthesia Postprocedure Evaluation - Gladys Villafuerte MD - 07/02/2013 3:50 PM EST Patient: Acosta Kay Procedure(s) Performed: Procedure(s): REMOVAL FOREIGN BODY OR DACRYOLITH, LACRIMAL PASSAGES Actual Anesthetic: general Patient location: PACU Post-op pain: Adequate analgesia Post-op nausea: no nausea or vomiting Last Vitals: Filed Vitals: 07/02/13 1411 BP: 137/65 Pulse: 73 Temp: 36.3 ??C (97.3 ??F) Resp: 16 Post-op cardiovascular and respiratory status: is stable Level of consciousness: awake, alert and oriented Complications: no apparent complications and tolerated the procedure well Fluid Status: normal Anesthesia Preprocedure Evaluation - Lydia Levy MD - 07/02/2013 2:25 PM EST Pre-Anesthesia Evaluation for: Acosta Kay a 62 y.o. male. Procedure(s): NASAL ENDOSCOPY DIAGNOSTIC, UNILATERAL OR BILATERAL Patient Active Problem List Diagnosis ??? Chronic sinusitis ??? Dacrocystitis ??? Dacryocystitis, chronic Past Medical History Diagnosis Date ??? Trauma ??? Neuromuscular disorder ??? Hyperlipidemia ??? Cardiac disease ??? Diabetes mellitus ??? Atrial fibrillation, chronic ??? COPD (chronic obstructive pulmonary disease) ??? Hypertension Past Surgical History Procedure Date ??? Nasal scopy, rmv tiss maxill sinus 04/03/2012 NASAL, SINUS ENDOSCOPY, REMOVE TISSUE MAXILLARY SINUS, MURIEL performed by SHI TURNER at [facility] MAIN OR ??? Nasal scopy, remv totl ethmoid 04/03/2012 NASAL, SINUS ENDOSCOPY, TOTAL ETHMOIDECTOMY-MURIEL performed by SHI TURNER at [facility] MAIN OR ??? Nasal/sinus scopy, surg tear duct 05/29/2012 NASAL, SINUS ENDOSCOPY, SURGICAL, WITH DACRYOCYSTORHINOSTOMY-MURIEL performed by Trixie Cesar [facility] MAIN OR ??? Repair of nasal septum 05/29/2012 SEPTOPLASTY OR SMR, W/ OR W/O CARTILAGE SCORING, CONTOURING OR REPLACEMENT W/ GRAFT performed by Praneeth Cleveland MD at [facility] MAIN OR ??? Release of nasal adhesions 05/29/2012 LYSIS INTRANASAL SYNECHIA performed by Praneeth Cleveland MD at [facility] MAIN OR ??? Nasal/sinus scopy, surg tear duct 12/28/2012 NASAL, SINUS ENDOSCOPY, SURGICAL, WITH DACRYOCYSTORHINOSTOMY-MURIEL performed by Praneeth Cleveland MD at [facility] MAIN OR ??? Excision turbinate 12/28/2012 EXCISION, INFERIOR TURBINATE, PARTIAL OR COMPLETE performed by Praneeth Cleveland MD at [facility] MAIN OR History Substance Use Topics ??? Smoking status: Former Smoker -- 1.0 packs/day for 40 years Quit date: 01/14/2010 ??? Smokeless tobacco: Never Used ??? Alcohol Use: 4.2 oz/week 7 Cans of beer per week Comment: 1 beer a day History Drug Use No Allergies Allergen Reactions ??? Simvastatin CIS - periphreal neuropathy ??? Ibuprofen CIS - itching Medications: MAR and/or home medications have been reviewed. Physical Exam: There were no vitals filed for this visit. There is no height or weight on file to calculate BMI. Airway Assessment: Mallampati: II TM distance: <3 FB Neck ROM: full Cardiovascular Assessment: Rhythm: regular Rate: normal Pulmonary Assessment: breath sounds clear to auscultation Dental Assessment: (+) upper dentures Misc Assessment: Patient is wearing No contact(s). IV access: Peripheral line Other exam findings: Distant heart sounds. Full upper plate Anesthesia Plan: ASA 3 general, with a(n) intravenous induction Acosta Kay is a 141kg 62 y.o. male with PMH per above significant for retained/dislodged rockwell tube s/p dacryocystorhinotomy to OR on 07/02/2013 for nasal endoscopy, removal of dislodged tube. PMHx/PSHx also significant for: obesity (135 kg), former smoker, COPD, HLD, DMII, likely CANDY, atrial fibrillation (on coumadin), ASCVD, chronic dacrocystitis s/p sinus endoscopy and right nasolacrimal duct repair. No CP with daily activities; DM diet-controlled; off of coumadin since Friday (baby aspirin since). Note: Sinus endoscopies 2011 and 2013- grade I view with glidescope. Most recent anesthesia noted to be 2-person mask, grade 1 view with glide, 7.0 oral angela ETT ALLERGIES: -- Simvastatin -- CIS - periphreal neuropathy -- Ibuprofen -- CIS - itching LABS: No results found for this or any previous visit (from the past 24 hour(s)). PT/INR pending ANESTHESIA PLAN: Acosta Kay has had no issues with anesthesia in past. We plan to proceed with General anesthesia with an IV induction. Standard monitors. 2nd IV setup in room. LMA. Code status: Full code. Lydia Levy MD Anesthesia CA-1 [phone] Informed Consent: Anesthetic plan and risks discussed with patient. Use of blood products discussed with patient whom consented to blood products. Plan discussed with attending. Misc. Assessment: documented in this encounter Plan of Treatment Not on filedocumented as of this encounter Visit Diagnoses Not on filedocumented in this encounter Administered Medications Inactive Administered Medications - up to 3 most recent administrations Medication Order MAR Action Action Date Dose Rate Site ampicillin-sulbactam (UNASYN) 1.5 g Given 07/02/2013 3:15 PM EST 1.5 g vial attach to sodium chloride 0.9% 50 mL Mini-Bag Plus 1.5 g, Intravenous, 30 MIN PRE-OP, 1 dose, On 07/03/13 at 0000, Administer over 30 Minutes, Indication for (Active or Suspected): Prophylaxis dexamethasone (DECADRON) injection Given 07/02/2013 3:18 PM EST 4 mg PRN, Starting on Fri07/02/13 at 1518, Until Fri07/02/13 at 1550, Anesthesia Intra-op, Routine fentaNYL 50mcg/mL injection Given 07/02/2013 3:11 PM EST 25 mcg PRN, Starting on Fri07/02/13 at 1511, Until Fri07/02/13 at 1550, Pain, Anesthesia Intra-op, Routine lactated ringers infusion 1,000 mL New Bag 07/02/2013 3:06 PM EST mL 1,000 mL, at 100 mL/hr, Intravenous, CONTINUOUS, Starting on Fri07/02/13 at 1445, Until 2/7/14 at 1640, Day of Surgery (Day of Procedure) lidocaine (PF) (XYLOCAINE) 100 mg/5 mL (2 %) Given 4 3:11 PM EST 40 mg injection PRN, Starting on Fri07/02/13 at 1511, Until Fri07/02/13 at 1550, Anesthesia Intra-op, Routine ondansetron (ZOFRAN) injection Given 07/02/2013 3:30 PM EST 4 mg PRN, Starting on Fri07/02/13 at 1530, Until Fri07/02/13 at 1550, Nausea, Anesthesia Intra-op, Routine propofol (DIPRIVAN) 10 mg/mL bolus injection Given 11/2013 3:09 PM EST 200 mg (Anesthesia) PRN, Starting on Fri07/02/13 at 1509, Until Fri07/02/13 at 1550, Anesthesia Intra-op documented in this encounter Care Teams Editorial Manager Relationship Specialty Start Date End Date Anson Arboleda DO PCP - General 04/17/10 04/25/[address] [place] [address] documented as of this encounter
--- OUTSIDE RECORDS SUMMARY | 2021-11-16 01:24 | XMS_ITS | Encounter Summary ---
:1950 Author Organization [facility] Address [facility] [place] [address] Care Team Providers Name Role Phone RoblesAnson yang Primary Care Provider Encounter Details Date Type Department Care Team Description 07/02/2013 Surgery Main Operating Room Jermaine Cleveland R EMOVAL FOREIGN BODY OR [facility] P[facility] (WRVU 3.7) [facility] [address] [place] [address] [place] [address] [phone] (Wo rk) Social History Tobacco Use Types [...] questions you have during the day. [facility] casting wheel operator helper can be reached at and can connect youwith a resident marine equipment preservation inspector if necessary after hours. If you need to reschedule your appointment please call the clinic at . documented in this encounter Medications at Time of Discharge Medication Sig Dispensed Refills Start Date End Date warfarin (COUMADIN) 5 Take by mouth daily. 0 mg tablet [place]-3 Fatty Take 1 capsule by 0 Acids-Vitamin [...] SINUS, MURIEL performed by SHI TURNER at [facility] OR ??? Nasal scopy, remv totl ethmoid 04/03/2012 NASAL, SINUS ENDOSCOPY, TOTAL ETHMOIDECTOMY-MURIEL performed by SHI TURNER at [facility] OR ??? Nasal/sinus scopy, surg tear duct 05/29/2012 NASAL, SINUS ENDOSCOPY, SURGICAL, WITH DACRYOCYSTORHINOSTOMY-MURIEL performed by Jermaine Cleveland MDat [facility] OR ??? Repair of nasal septum 05/29/2012 SEPTOPLASTY OR SMR, W/ OR W/O CARTILAGE SCORING, CONTOURING OR REPLACEMENT W/ GRAFT performed by Jermaine Cleveland MD at [facility] OR ??? Release of nasal adhesions 05/29/2012 LYSIS INTRANASAL SYNECHIA performed by Jermaine Cleveland MD at [facility] OR ??? Nasal/sinus scopy, surg tear duct 12/28/2012 NASAL, SINUS ENDOSCOPY, SURGICAL, WITH DACRYOCYSTORHINOSTOMY-MURIEL performed by Jermaine Cleveland MD at [facility] OR ??? Excision turbinate 12/28/2012 EXCISION, INFERIOR TURBINATE, PARTIAL OR COMPLETE performed by Jermaine Cleveland MD at [facility] OR Patient Active Problem List Diagnosis Code [...] Dooley MD - 07/02/2013 3:35 PM EST [facility] Operative Note Patient Name: Acosta Kay : [id number] MR#: [id number] Case Date: 07/02/2013 Surgeon: Surgeon(s) and Role: [...] Organization Address City/State/[place] [address] CERNER MILLENNIUM (ABNORMAL) Prothrombin Time (07/02/2013 2:27 PM EST) athologist Signature PT 20.3 (H) 12.0 - 15.0 CERNER sec MILLENNIUM Comment: [facility] Transfusion Committee Guidelines: I NR less than 2.0, PTT less than OR equal to 43.5 seconds, or Fibrinogen gre ater than or equal to 100 mg/dl indicate adequate procoagulant activity for hemostasis in patients without underlying bleeding disorders. INR 1.7 (H) 0.9 - 1.1 [employer] Interactive Specimen Anatomical Collection Method Collection Time Receive d Time (Source) Location / / Volume Laterality Blood specimen 07/02/2013 2:27 PM 014 2:42 (specimen) EST PM EST Resulting Agency Comment Spec In Lab Jermaine Cleveland MD HEMATOLOGY ORDERABLES Performing Organization Address City/State/ZIP Code Phon e Number [place] [phone] [employer] documented in this encounter Visit Diagnoses Not on filedocumented in this encounter Administered Medications Inactive Administered Medications - up to 3 most recent administrations Medication Order MAR Action Action Date Dose Rate Site oxymetazoline (AFRIN) Given 07/02/2013 3:20 PM 1 spray 19- Surgical Site 0.05 % nasal spray EST ONCE PRN, Starting on Fri07/02/13 at 1520, Until Fri07/02/13 at 1640, Congestion, Neck Band Setter recommended duration is 3 days., Intra-Operative (Intra-Procedure), Routine documented in this encounter Active and Recently Administered [...] patties for nasal packing.) ONCE PRN, Starting Fri07/02/13 at 1520, U ntil Fri07/02/13 at 1640, Congestion, Neck Band Setter recommended duration is 3 days., Intra-Operative (Intra-Procedure), Routine documented in this encounter Care Teams Scholarship Counselor Relationship Specialty Start Date End Date Anson Arboleda DO PCP - General 04/17/10 04/25/[address] [place] [address] documented as of this encounter
--- OUTSIDE RECORDS SUMMARY | 2021-11-16 01:24 | XMS_ITS | Encounter Summary ---
:1950 Author Organization [facility] Address [facility] [place] [address] Care Team Providers Name Role Phone RoblesAnson yang Primary Care Provider Reason for Visit Reason Comments Follow-up Encounter Details Date Type Department Care Team Description 03/31/2014 Follow-Up Otolaryngology at [facility] [place], [place] Epiphora, bilateral [facility] Katerina Vick MD (Primary Dx) [place] [address] [facility] [phone] OTOLARYNGOLOGY DEPT. [place], [place] [address] Social History Tobacco Use Types [...] Sign Reading Time Taken Comments Blood Pressure 136/74 03/31/2014 11:25 AM EST Pulse 72 03/31/2014 11:25 AM EST Temperature - - Respiratory Rate - - Oxygen Saturation - - Inhaled Oxygen Concentration - - Weight 144.9 kg (319 lb 6.4 oz) 03/31/2014 11:25 AM EST Height 182.9 cm (6') 03/31/2014 11:25 AM EST Body Mass Index 43.32 03/31/2014 11:25 AM EST documented in this encounter Progress Notes Praneeth Cleveland MD - 03/31/2014 11:58 AM EST Images from the original note were not [...] morning has some thick drainage from left side occasionally-if uses his nasal saline irrigations, does not occur. No pain, no headache. Denies sinus symptoms. No change in smell/tasteVery pleased about outcome so far. Has not been compliant with irrigations of his nose. Past Medical History Diagnosis Date ??? Trauma ??? Neuromuscular disorder ??? Hyperlipidemia ??? Cardiac disease ??? Diabetes mellitus ??? Atrial fibrillation, chronic ??? COPD (chronic obstructive pulmonary disease) ??? Hypertension Past Surgical History Procedure Date ??? Nasal scopy, rmv tiss maxill sinus 04/03/2012 NASAL, SINUS ENDOSCOPY, REMOVE TISSUE MAXILLARY SINUS, MURIEL performed by SHI TURNER at [facility] MAIN OR ??? Nasal scopy, remv totl ethmoid 04/03/2012 NASAL, SINUS ENDOSCOPY, TOTAL ETHMOIDECTOMY-MURIEL performed by SHI TURNER at [facility] MAIN OR ??? Nasal/sinus scopy, surg tear duct 05/29/2012 NASAL, SINUS ENDOSCOPY, SURGICAL, WITH DACRYOCYSTORHINOSTOMY-MURIEL performed by Trixie Cesar [facility] MAIN OR ??? Repair of nasal septum 05/29/2012 SEPTOPLASTY OR SMR, W/ OR W/O CARTILAGE SCORING, CONTOURING OR REPLACEMENT W/ GRAFT performed by Praneeth Cleveland MD at [facility] MAIN OR ??? Release of nasal adhesions 05/29/2012 LYSIS INTRANASAL SYNECHIA performed by Praneeth Cleveland MD at [facility] MAIN OR ??? Nasal/sinus scopy, surg tear duct 12/28/2012 NASAL, SINUS ENDOSCOPY, SURGICAL, WITH DACRYOCYSTORHINOSTOMY-MURIEL performed by Praneeth Cleveland MD at [facility] MAIN OR ??? Excision turbinate 12/28/2012 EXCISION, INFERIOR TURBINATE, PARTIAL OR COMPLETE performed by Praneeth Cleveland MD at [facility] MAIN OR ??? Remv f.b./stone in tear duct 07/02/2013 REMOVAL FOREIGN BODY OR DACRYOLITH, LACRIMAL PASSAGES performed by Praneeth Cleveland MD at [facility] MAIN OR Patient Active Problem List Diagnosis [...] by mouth daily., Disp: , Rfl: ; [place]-3 Fatty Acids-Vitamin E (FISH OIL) 1,000 mg Cap, Take by mouth., Disp: , Rfl: ; metoprolol succinate (TOPROL XL) 200 mg 24 hr tablet, 200mg, PO, Once daily, Disp: , Rfl: losartan-hydrochlorothiazide (HYZAAR) 100-25 mg per tablet, , Disp: , Rfl: ; [DISCONTINUED] aspirin 81 mg tablet, Take 81 mg by mouth daily. , Disp: , Rfl: ; [DISCONTINUED] niacin (NIASPAN) 500 mg ER tablet, , Disp: , Rfl: Allergies Allergen [...] is covered with crusted debris. No infection. No ulceration. R side open, no lesion nor granulation tissue Assessment and Plan: Patient stable from his DCR standpoint. Needs to use irrigations on a regular basis. See in about 6-9 mo documented in this encounter Plan of Treatment Not on filedocumented as of this encounter Visit Diagnoses Diagnosis Epiphora, bilateral - Primary Epiphora, unspecified as to cause documented in this encounter Care Teams Wire Splicer Relationship Specialty Start Date End Date Anson Arboleda DO PCP - General 04/17/10 04/25/21 [address] [place] [address] documented as of this encounter
--- OUTSIDE RECORDS SUMMARY | 2021-11-16 01:25 | XMS_ITS | Encounter Summary ---
:1950 Author Organization [facility] Address [facility] [place] [address] Care Team Providers Name Role Phone Anson Arboleda DO Primary Care Provider Reason for Visit Reason Onset Date Comments Other 01/20/2012 f/u after visit and CT scan Encounter Details Date Type Department Care Team Description 01/20/2012 Telephone Otolaryngology at [facility] Berenice Mccartney Other (f/u after visit [facility] Katerina Pereyra RN and CT scan) [place] [address] [place], [place] [phone] Social History Tobacco Use Types Packs/Day Years Used Date Former Smoker 1 40 Quit: 01/15/20 10 Smokeless Tobacco: Never Used Sex Assigned at Date Recorded Not on file documented as of this encounter Miscellaneous Notes Telephone Encounter - Berenice Mccartney RN - 01/20/2012 2:09 PM EDT Patient seen last week by Drs. Dooley and Jayant for left eye palsy, had CT scan following visit. Shows abcess. Per Dr. Saba, I have called to discuss the plan of care with the patient: 1) three weeks of daily levaquin (he will check with the pharmacist when he picks it up as to side effects warranting stoppage 2) ophthalmology appointment, he will be contacted by them to set this up 3) surgery, he will be contacted by Dr. Saba's OR dental scheduler to set this up 4) stop coumadin one week before surgery date, he will check with Dr. Arboleda who prescribes his coumadin to make sure this is ok. He has written down this plan, agrees to it, has my call back number should he have any questions orconcerns. documented in this encounter Plan of Treatment Not on filedocumented as of this encounter Visit Diagnoses Not on filedocumented in this encounter Care Teams Music Mixer Relationship Specialty Start Date End Date Anson Arboleda DO PCP - General 04/17/10 04/25/[address] [place] [address] [address] [place] [address] documented as of this encounter
--- OUTSIDE RECORDS SUMMARY | 2021-11-16 01:25 | XMS_ITS | Encounter Summary ---
:1950 Author Organization [facility] Address [facility] [place] [address] Care Team Providers Name Role Phone RoblesAnson yang Primary Care Provider Reason for Visit Reason Onset Date Comments Other 12/17/2012 preop ASA and coumad in Encounter Details Date Type Department Care Team Description 12/17/2012 Telephone Otolaryngology at [facility] Mainor Choi (preop ASA and [facility] Katerina Ribeiro RN coumadin) [place] [address] Social History Tobacco Use Types Packs/Day Years Used Date Former Smoker 1 40 Quit: 01/15/20 10 Smokeless Tobacco: Never Used Alcohol Use Standard Drinks/Week Comments Yes 0 (1 standard drink = 0.6 oz pure alcoho l) Sex Assigned at Date Recorded Not on file documented as of this encounter Miscellaneous Notes Telephone Encounter - Anitra Choi RN - 12/17/2012 3:41 PM EDT Patient called to inquire how long he should stop his prescribed Coumadin and Aspirin. Spoke with who recommended he stop the medications 7 days prior to the scheduled surgery of 12/28. Returnedpatient's call and relayed information of stopping Coumadin and Aspirin on 12/21 and to also call hisPCP with this information. Patient understands directions and repeated information back to me. documented in this encounter Plan of Treatment Not on filedocumented as of this encounter Visit Diagnoses Not on filedocumented in this encounter Care Teams Road Cutter Relationship Specialty Start Date End Date Anson Arboleda DO PCP - General 04/17/10 04/25/[address] [place] [address] documented as of this encounter
--- OUTSIDE RECORDS SUMMARY | 2021-11-16 01:25 | XMS_ITS | Encounter Summary ---
:1950 Author Organization [facility] Address [facility] [place] [address] Care Team Providers Name Role Phone Robles Anson Primary Care Provider Reason for Visit Reason Comments Follow-up Encounter Details Date Type Department Care Team Description 02/04/2013 Follow-Up Otolaryngology at [facility] Megha, History of [facility] Praneeth Vick MD dacryocystorhinostomy [facility] (Primary Dx) [place] [address] [facility] [phone] [place] [address] Social History Tobacco Use Types Packs/Day Years [...] Sign Reading Time Taken Comments Blood Pressure 114/73 02/04/2013 9:48 AM EDT Pulse 67 02/04/2013 9:48 AM EDT Temperature - - Respiratory Rate 18 02/04/2013 9:48 AM EDT Oxygen Saturation - - Inhaled Oxygen Concentration - - Weight 137.9 kg (304 lb) 02/04/2013 9:48 AM EDT Height 182.9 cm (6') 02/04/2013 9:48 AM EDT Body Mass Index 41.23 02/04/2013 9:48 AM EDT documented in this encounter Progress Notes Praneeth Cleveland MD - 02/04/2013 10:03 AM EDT Images from the original note were not included. Subjective: Patient ID: Acosta Kay is a 62 y.o. male. HPI Seen in f/u of his right DCR done 12/28/12. Had prior right DCR done may 2012. Very pleased and appreciative of care and improvement in symptoms. Denies pain. No sinus complaints Past Medical History Diagnosis Date ??? Trauma ??? Neuromuscular disorder ??? Hyperlipidemia ??? Cardiac disease ??? Diabetes mellitus ??? Atrial fibrillation, chronic ??? COPD (chronic obstructive pulmonary disease) ??? Hypertension Past Surgical History Procedure Date ??? Nasal scopy, rmv tiss maxill sinus 04/03/2012 NASAL, SINUS ENDOSCOPY, REMOVE TISSUE MAXILLARY SINUS, MURIEL performed by SHI TURNER at [facility] OR ??? Nasal scopy, remv totl ethmoid 04/03/2012 NASAL, SINUS ENDOSCOPY, TOTAL ETHMOIDECTOMY-MURIEL performed by SHI TURNER at [facility] OR ??? Nasal/sinus scopy, surg tear duct 05/29/2012 NASAL, SINUS ENDOSCOPY, SURGICAL, WITH DACRYOCYSTORHINOSTOMY-MURIEL performed by Trixie Cesar [facility] OR ??? Repair of nasal septum 05/29/2012 SEPTOPLASTY OR SMR, W/ OR W/O CARTILAGE SCORING, CONTOURING OR REPLACEMENT W/ GRAFT performed by Praneeth Cleveland MD at [facility] OR ??? Release of nasal adhesions 05/29/2012 LYSIS INTRANASAL SYNECHIA performed by Praneeth Cleveland MD at [facility] OR ??? Nasal/sinus scopy, surg tear duct 12/28/2012 NASAL, SINUS ENDOSCOPY, SURGICAL, WITH DACRYOCYSTORHINOSTOMY-MURIEL performed by Praneeth Cleveland MD at [facility] OR ??? Excision turbinate 12/28/2012 EXCISION, INFERIOR TURBINATE, PARTIAL OR COMPLETE performed by Praneeth Cleveland MD at [facility] MAIN OR Patient Active Problem List Diagnosis Code ??? 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 Chronic sinusitis 473.9 ??? Dacrocystitis 375.30 Current outpatient prescriptions:morphine (MS CONTIN) 60 mg 12 hr tablet, Active, Take 60 mg by mouth 2 times daily. , Disp: , Rfl: ; warfarin (COUMADIN) 5 mg tablet, Active, Take 5 mg by mouth daily. , Disp: , Rfl: ; aspirin 81 mg tablet, Active, Take 81 mg by mouth daily. , Disp: , Rfl: ; morphine (MS CONTIN) 15 mg 12 hr tablet, Active, Take 15 mg by mouth daily., Disp: , Rfl: citalopram (CELEXA) 10 mg tablet, Active, Take 10 mg by mouth daily., Disp: , Rfl: ; Hollywood-3 Fatty Acids-Vitamin E (FISH OIL) 1,000 mg Cap, Active, Take by mouth., Disp: , Rfl: ; metoprolol succinate (TOPROL XL) 200 mg 24 hr tablet, Active, 200mg, PO, Once daily, Disp: , Rfl: ; niacin (NIASPAN) 500 mgER tablet, Active, , Disp: , Rfl: ; losartan-hydrochlorothiazide (HYZAAR) 100-25 mg per tablet, Active, , Disp: , Rfl: OXYcodone-acetaminophen (PERCOCET) 5-325 mg per tablet, Discontinued, Take 1 tablet by mouth every 6hours as needed for Pain., Disp: 20 tablet, Rfl: 0 Allergies Allergen Reactions ??? Simvastatin CIS - [...] Smokeless tobacco: Never Used ??? Alcohol Use: Yes 1 beer a day ??? Drug Use: [...] passed in the nasal cavities without difficulty. Findings:s/p FESS. Both OMCs patent both stents in proper position Assessment and Plan: No problem-specific assessment & plan notes found for this encounter. See 6 mo documented in this encounter Plan of Treatment Not on filedocumented as of this encounter Visit Diagnoses Diagnosis History of dacryocystorhinostomy - Prima ry Other states following surgery of eye an d adnexa documented in this encounter Care Teams Assembler Crimper Relationship Specialty Start Date End Date Anson Arboleda DO PCP - General 04/17/10 04/25/[address] [place] [address] documented as of this encounter
--- OUTSIDE RECORDS SUMMARY | 2021-11-16 01:25 | XMS_ITS | Encounter Summary ---
:1950 Author Organization [facility] [place] [address] Care Team Providers Name Role Phone Anson Arboleda DO Primary Care Provider Encounter Details Date Type Department Care Team Description 02/10/2012 Telephone Otolaryngology at [facility] [place] [address] Social History Tobacco Use Types Packs/Day Years Used Date Former Smoker 1 40 Quit: 01/15/20 10 Smokeless Tobacco: Never Used Alcohol Use Standard Drinks/Week Comments Yes 0 (1 standard drink = 0.6 oz pure alcoho l) Sex Assigned at Date Recorded Not on file documented as of this encounter Miscellaneous Notes Telephone Encounter - Bryant Ball - 02/10/2012 10:34 AM EDT Called to set up surgery, left a voice mail. documented in this encounter Plan of Treatment Not on filedocumented as of this encounter Visit Diagnoses Not on filedocumented in this encounter Care Teams Msws Relationship Specialty Start Date End Date Anson Arboleda DO PCP - General 04/17/10 04/25/[address] [place] [address] documented as of this encounter
--- OUTSIDE RECORDS SUMMARY | 2021-11-16 01:25 | XMS_ITS | Encounter Summary ---
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 (Intra-Procedure) lactated ringers infusion 1,000 New Bag 05/29/2012 12:45 PM ES T 1,000 mLs 100 mL/hr mL 1,000 mL, at 100 mL/hr, Intravenous, CONTINUOUS, Starting on Fri05/29/12 at 1245, Until Fri05/29/12 at 2247, Day of Surgery (Day of Procedure) lidocaine-epiNEPHrine 1 Given 05/29/2012 2:37 PM 5 mLs 19- Surgical Site %-1:200,000 injection EST ONCE PRN, Starting on Fri05/29/12 at 1437, Until Fri05/29/12 at 2247, Intra-Operative (Intra-Procedure), Routine OXYcodone (ROXICODONE) immediate release tablet Given 05/29/2012 5:45 PM EST 5 mg 5 mg 5 mg, Oral, EVERY 6 HOURS PRN, Starting on Fri05/29/12 at 1701, Until Fri05/29/12 at 2247, Pain, Routine oxymetazoline (AFRIN) 0.05 % Given 05/29/2012 2:36 PM 3 sprays 19- Surgical Site nasal spray EST ONCE PRN, Starting on Fri05/29/12 at 1436, Until Fri05/29/12 at 2247, Congestion, Mails Supervisor recommended duration is 3 days., Intra-Operative (Intra-Procedure), Routine documented in this encounter Active and Recently Administered Medications Times are shown in EST. Continuous Medication Order 05/27/2012 05/28/2012 05/29/2012 lactated ringers infusion 1,000 mL (CANCELED) 1245 (New Bag - Provider: Keisha Brock RN) 1,000 mL, at 100 mL/hr, Intravenous, CON TINUOUS, Starting Fri05/29/12 at 1245, Until Fri05/29/12 at 2247, Day of Surgery (Day of Procedure) PRN Medication Order 05/27/2012 05/28/2012 05/29/2012 ampicillin-sulbactam (UNASYN) injection (CANCELED) 1356 (Given - Provider: Daisy Davila - Comment: Pre-incision antibiotic.) ONCE PRN, Starting 05/29/12 at 1356, U ntil Fri05/29/12 at 2247, Intra-Operative (Intra-Procedure), Routine bacitracin ointment (CANCELED) 1 637 (Given - Provider: Jermaine Cleveland MD - Comment: Small amt of bacitracin applied on the payne splint) ONCE PRN, Wound Care, Starting Fri 3 at 1637, For 1 dose, Intra-Operative (Intra-Procedure) balanced salt (BSS) irrigation solution (CANCELED) 1437 (Given - Provider: Jermaine Cleveland MD - Comment: In left eye) ONCE PRN, Starting Fri05/29/12 at 1437, U ntil Fri05/29/12 at 2247, Intra-Operative (Intra-Procedure), Routine cocaine 4 % external solution (CANCELED) 1435 (Given - Provider: Jermaine Cleveland MD - Comment: Mixed with 30 mL Afrin to soak nasal patties.) ONCE PRN, Other, Starting Fri05/29/12 at 1435, For 1 dose, Intra-Operative (Intra-Procedure) gelatin adsorbable (GELFOAM) sponge (CANCELED) 1621 (Given - Provider: Jermaine Cleveland MD) ONCE PRN, Starting Fri05/29/12 at 1621, F or 1 dose, Intra-Operative (Intra-Procedure) lidocaine-epiNEPHrine 1 %-1:200,000 injection (CANCELED) 1437 (Given - Provider: Jermaine Cleveland MD) ONCE PRN, Starting 05/29/12 at 1437, U ntil Fri05/29/12 at 2247, Intra-Operative (Intra-Procedure), Routine OXYcodone (ROXICODONE) immediate release tablet 5 mg 1745 (Given - Provider: Mireille Gonzalez RN) 5 mg, Oral, EVERY 6 HOURS PRN, Starting Fri05/29/12 at 1701, Until Fri05/29/12 at 2247, Pain, Routine oxymetazoline (AFRIN) 0.05 % nasal spray (CANCELED) 1436 (Given - Provider: Jermaine Cleveland MD - Comment: Mixed with 4 mL of 4% cocaine external solution to soak nasal patties.) ONCE PRN, Starting 05/29/12 at 1436, U ntil 05/29/12 at 2247, Congestion, Mails Supervisor recommended duration is 3 days., Intra-Operative (Intra-Procedure), Routine documented in this encounter Care Teams Ash Handler Relationship Specialty Start Date End Date Anson Arboleda DO PCP - General 04/17/10 04/25/[address] [place] [address] documented as of this encounter
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
--- OUTSIDE RECORDS SUMMARY | 2021-11-16 01:25 | XMS_ITS | Encounter Summary ---
:1950 [place] [address] Care Team Providers Name Role Phone Anson Arboleda DO Primary Care Provider Encounter Details Date Type Department Care Team Description 12/28/2012 Anesthesia Event Main Operating Room Fito Ron MD [facility] [place] [address] [facility] Judith Beltrán MD [facility] [place] [address] [place] [address] Anesthesia Record Procedure Summary Procedure Name Responsible Anesthesia Start Anesthesia Stop Time Anesthesiologist Time NASAL, SINUS Fito Devine MD 12/28/12 1258 12/28/12 15 47 ENDOSCOPY, SURGICAL, WITH DACRYOCYSTORHINOSTO MY-MURIEL (WRVU 9.04) (Right Nose) Events Date Time Event Comment 12/28/2012 1233 1258 Start 1302 AN Verify 1305 An Start Data 1310 An Induction 1316 An Intubation 1404 Break/Relief In 1435 Break/Relief Out 1542 Extubation/LMA Out 1545 an stop data 1547 Stop Name Total Midazolam 2 mg fentaNYL 200 mcg IV Lidocaine 40 mg Propofol 300 mg Rocuronium 70 mg PHENYLephrine 80 mcg Dexamethasone 4 mg Ampicillin-Sulbactam 1.5 g Esmolol 10 mg Lactated Ringers 1,000 mL Agents Name O2 Air Sevoflurane (et) [...] nostril 12/28/12 0000 by My Mittal RN PIV 12/28/12; 1200; 12/28/12 1200 by 12/28/12 1750 b y 12/28/12; 1750 Dora Angeles Ingalls, W endy L, RN RN (RETIRED) Mask Ventilation: 12/28/12 1348 by 12/28/12 1542 by Non-Surgical Airway Adjunct (2) (Miriam Banuelos MD ventilation with oral airway, two person face mask); ETT Type: Cuffed, ROZ; ETT Size: 7.5 mm; Oral Airway: 100 mm (5) documented in this encounter Social History Tobacco [...] encounter OR Notes Anesthesia Postprocedure Evaluation - Prashanth Dinh MD - 12/28/2012 4:26 PM EDT Patient: Acosta Kay Procedure(s) Performed: Procedure(s): NASAL, SINUS ENDOSCOPY, SURGICAL, WITH DACRYOCYSTORHINOSTOMY-MURIEL EXCISION, INFERIOR TURBINATE, PARTIAL OR COMPLETE Actual Anesthetic: general Patient location: PACU Post-op pain: Adequate analgesia Post-op nausea: no nausea or vomiting Last Vitals: Filed Vitals: 12/28/12 1617 BP: 146/79 Pulse: 82 Temp: Resp: Post-op cardiovascular and respiratory status: is stable Level of consciousness: awake, alert and oriented Complications: no apparent complications and tolerated the procedure well Fluid Status: normal Anesthesia Preprocedure Evaluation - Prashanth Dinh MD - 12/25/2012 5:02 PM EDT Pre-Anesthesia Evaluation for: Acosta Kay a 62 y.o. male. Procedure(s): NASAL, SINUS ENDOSCOPY, SURGICAL, WITH DACRYOCYSTORHINOSTOMY-MURIEL EXCISION, INFERIOR TURBINATE, PARTIAL OR COMPLETE Patient Active Problem List Diagnoses ??? Chronic sinusitis ??? Dacrocystitis ??? Dacryocystitis, [...] SINUS, MURIEL performed by SHI TURNER at [facility] MAIN OR ??? Nasal scopy, remv totl ethmoid 04/03/2012 NASAL, SINUS ENDOSCOPY, TOTAL ETHMOIDECTOMY-MURIEL performed by SHI TURNER at [facility] MAIN OR ??? Nasal/sinus scopy, surg tear duct 05/29/2012 NASAL, SINUS ENDOSCOPY, SURGICAL, WITH DACRYOCYSTORHINOSTOMY-MURIEL performed by Trixie Cesar [facility] MA[facility] OR ??? Repair of nasal septum 05/29/2012 SEPTOPLASTY OR SMR, W/ OR W/O CARTILAGE SCORING, CONTOURING OR REPLACEMENT W/ GRAFT performed by Praneeth Cleveland MD at [facility] MAIN OR ??? Release of nasal adhesions 05/29/2012 LYSIS INTRANASAL SYNECHIA performed by Praneeth Cleveland MD at [facility] MAIN OR History Substance Use Topics ??? Smoking status: Former Smoker -- 1.0 packs/day for 40 years Quit date: 01/14/2010 ??? Smokeless tobacco: Never Used ??? Alcohol Use: Yes History Drug Use Allergies Allergen Reactions ??? Simvastatin CIS - periphreal neuropathy ??? Ibuprofen CIS - itching Medications: MAR and/or home medications have been reviewed. Physical Exam: There were no vitals filed for this visit. There is no height or weight on file to calculate BMI. Airway Assessment: Mallampati: II TM distance: >3 FB Neck ROM: full Cardiovascular Assessment: Pulmonary Assessment: Dental Assessment: (+) upper dentures [facility] [place]: Anesthesia Plan: ASA 3 general, with a(n) intravenous induction 62 y.o male obesity (135 kg), former smoker. COPD, HLD, DMII, likely CANDY, atrial fibrillation (on coumadin), ASCVD per chart with chronic dacrocystitis here for sinus endoscopy and right nasolacrimal duct repair. No CP with daily activities; DM diet-controlled; off of coumadin x5 days Sinus endoscopies 2011 and 2013- grade I view with glidescope. Mallampati II, thick neck, TM > 3 FB, good neck ROM Allergies to simvastatin and ibuprofen. Plan GETA with glidescope Region - Other Informed Consent: Anesthetic plan and risks discussed with patient and spouse. Use of blood products discussed with patient and spouse whom consented to blood products. Plan discussed with attending. [facility] Assessment: documented in this encounter Miscellaneous Notes Addendum Note - Fito Devine MD - 12/28/2012 5:47 PM EDT Addendum Note - Fito Devine MD - 12/28/2012 5:47 PM EDT documented in this encounter Plan of Treatment Not on filedocumented as of this encounter Visit Diagnoses Not on filedocumented in this encounter Administered Medications Inactive Administered Medications - up to 3 most recent administrations Medication Order MAR Action Action Date Dose Rate Site ampicillin-sulbactam (UNASYN) Given 12/28/2012 1:40 PM EDT 1.5 g injection PRN, Starting on Fri12/28/12 at 1340, Until Fri12/28/12 at 1547, Anesthesia Intra-op, Routine dexamethasone (DECADRON) injection Given 12/28/2012 1:44 PM EDT 4 mg PRN, Starting on Fri12/28/12 at 1344, Until Fri12/28/12 at 1547, Anesthesia Intra-op, Routine esmolol (BREVIBLOC) injection Given 12/28/2012 2:59 PM EDT 10 mg PRN, Starting on Fri12/28/12 at 1459, Until Fri12/28/12 at 1547, Anesthesia Intra-op, Routine fentaNYL 50mcg/mL injection Given 12/28/2012 3:21 PM EDT 50 mcg PRN, Starting on Fri12/28/12 at 1310, Until Fri12/28/12 at 1547, Pain, Anesthesia Intra-op, Routine Given 12/28/2012 3:13 PM EDT 25 mcg Given 12/28/2012 3:04 PM EDT 25 mcg lactated ringers infusion New Bag 12/28/2012 12:58 PM EDT mL CONTINUOUS PRN, Starting on Fri12/28/12 at 1258, Until Fri12/28/12 at 1547, Anesthesia Intra-op lidocaine (PF) (XYLOCAINE) 100 mg/5 mL (2 %) Given 3 1:10 PM EDT 40 mg injection PRN, Starting on Fri12/28/12 at 1310, Until Fri12/28/12 at 1547, Anesthesia Intra-op, Routine midazolam (VERSED) injection Given 12/28/2012 12:58 PM EDT 2 mg PRN, Starting on Fri12/28/12 at 1258, Until Fri12/28/12 at 1547, Sleep, Anesthesia Intra-op, Routine PHENYLephrine HCl in NS (PF) (NEERAJ-SYNEPHRINE) Given 1:55 PM EDT 80 mcg 0.8 mg/10 mL (80 mcg/mL) injection Syrg PRN, Starting on Fri12/28/12 at 1355, Until Fri12/28/12 at 1547, Anesthesia Intra-op, Routine propofol (DIPRIVAN) 10 mg/mL bolus injection Given 09/2012 1:10 PM EDT 300 mg (Anesthesia) PRN, Starting on Fri12/28/12 at 1310, Until Fri12/28/12 at 1547, Anesthesia Intra-op rocuronium (ZEMURON) injection Given 12/28/2012 1:11 PM EDT 70 mg PRN, Starting on Fri12/28/12 at 1341, Until Fri12/28/12 at 1547, Anesthesia Intra-op, Routine documented in this encounter Care Teams E Commerce Analyst Relationship Specialty Start Date End Date Anson Arboleda DO PCP - General 04/17/10 04/25/[address] [place] [address] documented as of this encounter
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
--- OUTSIDE RECORDS SUMMARY | 2021-11-16 01:25 | XMS_ITS | Encounter Summary ---
:1950 Author Organization [place] [address] Care Team Providers Name Role Phone Anson Arboleda DO Primary Care Provider Encounter Details Date Type Department Care Team Description 06/15/[address] [facility] Vinicio Barker, [facility] [place] [phone] Social History Tobacco Use Types Packs/Day [...] this encounter Miscellaneous Notes Telephone Encounter - Vinicio Barker CMA - 06/15/2013 3:13 PM EST Reminder card sent out 06/15/13 documented in this encounter Plan of Treatment Not on filedocumented as of this encounter Visit Diagnoses Not on filedocumented in this encounter Care Teams Computerized Mill Mill Recorder Relationship Specialty Start Date End Date Anson Arboleda DO PCP - General 04/17/10 04/25/[address] [place] [address] documented as of this encounter
--- OUTSIDE RECORDS SUMMARY | 2021-11-16 01:25 | XMS_ITS | Encounter Summary ---
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 Laterality Specimen of 04/03/2012 10:01 04/03/2012 unknown material AM EST 10:01 AM ES T (specimen) Comment: LEFT MAXILLARY SINUS CONTENT Resulting Agency Comment Spec In Lab Shi Saba MD MICROBIOLOGY - GENERAL ORDER SHAYNE Performing Organization Address City/State/[place] [address] [facility] SURGICAL PATHOLOGY REPORT (04/03/2012 9:56 AM EST) [facility] Method Time Signature Surgical CERNER Pathology ? [facility] Report ? Provider: ?? JOHNNY, ?Pt. Name: ?? PENNIE ADAMS ?SHI ? Acc #: ?[id number] ?Pt. MRN: ?[id number] ? Col Date: ?? 2 ? /Sex: ?1950,(61 years),Male ? Rec Date: ?? 04/03/2012 ? LOC: ?SDP ? SURGICAL PATHOLOGY ? ---Pathologic Diagnosis--- ? Left maxillary sinus content, resection: ? Benign sinonasal tissue with with mixed eosinophilic and chronic ? inflammation. ? 04/07/12 ? VAM ? 04/07/12 Verified by: ? Bong CARLOS, Raul Montoya ? Pathologist ? (Electronic Si gnature) ? The attending pathologist whose signature appears o n this report has ? reviewed all diagnostic slides and has edited the noe ss and/or ? microscopic portion of the report in rendering the fi nal pathologic ? diagnosis. ? ---Microscopic Description--- ? Slides reviewed, microscopic description not recorded . ? ---Gross Description--- ? Labeled/Fixative: ? Left maxillary sinus content, fresh. ? Qty/Size/Weight: ?Four, ranging from 0.1 cm to 0.4 cm. ? Tissue Description: ?? Soft, pink tissues. ? Sections/Processing: ??The largest is bisected. ??(T1 ) ??aje/SNS ? ---Clinical Information--- ? Specimen Submitted: ? A - Left maxillary sinus content ? Clinical History/Diagnosis: ? Chronic sinusitis Specimen (Source) Anatomical Collection Method Collection Time Re ceived Time Location / / Volume Laterality 04/03/2012 9:56 AM EST Shi Saba MD PATHOLOGY/CYTOLOGY ORDERABLE S Performing Organization Address City/State/[place] [address] [facility] Specimen to Pathology (surgical or derm) (04/03/2012 9:30 AM EST) Specimen Anatomical Collection Method Collection Time Receive d Time (Source) Location / / Volume Laterality AP Specimen 04/03/2012 9:30 AM 2 9:30 EST AM EST Narrative CERMARCELO WILCOXENNIUM - 04/03/2012 9:[address] Specimen requisition ordered. ??Separate Pathology report to follow Shi Saba MD PATHOLOGY/CYTOLOGY ORDERABLE S Performing Organization Address City/[facility]/ZIP Code Phon e Number [address] CERMARCELO WILCOXENNIUM Prothrombin Time (04/03/2012 6:36 AM EST) P athologist Signature PT 14.2 11.9 - 14.7 CERNER sec MILLENNIUM Comment: [facility] Transfusion Committee Guidelines: I NR less than 2.0, PTT less than OR equal to 43.5 seconds, or Fibrinogen gre ater than or equal to 100 mg/dl indicate adequate procoagulant activity for hemostasis in patients without underlying bleeding disorders. INR 1.1 0.9 - 1.1 [facility] Specimen Anatomical Collection Method Collection Time Receive d Time (Source) Location / / Volume Laterality Blood specimen 04/03/2012 6:36 AM 012 6:48 (specimen) EST AM EST Resulting Agency Comment Spec In Lab Vivek Pierce MD HEMATOLOGY ORDERABLES Performing Organization Address City/State/ZIP Code Phon e Number [address] [facility] documented in this encounter Visit Diagnoses Diagnosis Atrial fibrillation documented in this encounter Administered Medications Inactive Administered Medications - up to 3 most recent administrations Medication Order MAR Action Action Date Dose Rate Site OXYcodone-acetaminophen (PERCOCET) Given 04/03/2012 11:45 AM EST 1 mg 5-325 mg per tablet 1 dose, Starting on Fri04/03/12 at 1128, Until Fri04/03/12 at 1145, DANITZA SORIANO: Cabinet Override documented in this encounter Active and Recently Administered Medications Times are shown in EST. Scheduled Medication Order 04/01/2012 04/02/2012 04/03/2012 ceFAZolin (ANCEF) 2g in dextrose 5% 100mL (COMPLETED) 0911 (Given - Provider: Ninfa Fuentes MD) 2 g, Intravenous, 60 MIN PRE-OP, 1 dose, 04/04/12 at 0000, for 30 Minutes, Day of Surgery (Day of Procedure) PRN Medication Order 04/01/2012 04/02/2012 04/03/2012 bacitracin ophthalmic ointment (CANCELED) 1036 (Given - Provider: Shi Saba MD - Comment: The ophthalmic betadine ointment was sent with the pt,it was not applied on the eyes in the OR) ONCE PRN, Starting Fri04/03/12 at 1036, For 1 dose, Intra-Operative (Intra-Procedure) balanced salt (BSS) irrigation solution (CANCELED) 1009 (Given - Provider: Shi Saba MD) ONCE PRN, Starting Fri04/03/12 at 1009, Until Fri04/03/12 at 1415, Intra- Operative (Intra-Procedure), Routine cocaine 4 % external solution (CANCELED) 0944 (Given - Provider: Shi Saba MD - Comment: 30 ml of afrin nasal spray mixed with 4 ml of 4% topical cocaine and soaked with patties.32 ml of the mixture of 30 ml afrin with 4 ml of 4% t ONCE PRN, Other, Starting Fri04/03/12 at 0944, For 1 dose, Intra-Operative (Intra-Procedure) opical cocaine waste d with A,White and A,Ansary at the end of this case. ) epiNEPHrine (ADRENALIN) 1:1,000 (0.1 %) nasal solution (CANCELED ) 0947 (Given - Provider: Shi Saba MD - Comment: 30 ml of Topical adrenalin 1:1000 soaked with patties.) ONCE PRN, Starting 04/03/12 at 0947, Until 04/03/12 at 1415, Congestion, Intra-Operative (Intra-Procedure), Routine lidocaine-epiNEPHrine 1 %-1:200,000 injection (CANCELED) 0910 (Given - Provider: Shi Saba MD) ONCE PRN, Starting Fri04/03/12 at 0910, Until Fri04/03/12 at 1415, Intra- Operative (Intra-Procedure), Routine oxymetazoline (AFRIN) 0.05 % nasal spray (CANCELED) 0944 (Given - Provider: Shi Saba MD - Comment: 30 ml of afrin nasal spray mixed with 4 ml of 4% topical cocaine and soaked with patties..32 ml of the mixture of 30 ml afrin with 4 ml of 4% ONCE PRN, Starting Fri04/03/12 at 0944, Until Fri04/03/12 at 1415, Congestion, Kitchen Steward/Stewardess recommended duration is 3 days., Intra-Operative (Intra-Procedure), Routine topical cocaine wast ed with Lizzy Montoya and Kyrie Montoya at the end of this case.) No Frequency Medication Order 04/01/2012 04/02/2012 04/03/2012 OXYcodone-acetaminophen (PERCOCET) 5-325 mg per tablet (COMPLETE D) 1145 (Given - Provider: Danitza Soriano RN) 1 dose, Starting Fri04/03/12 at 1128, Un til Fri04/03/12 at 1145, DANITZA SORIANO: Cabinet Override documented in this encounter Care Teams Cloth Beamer Relationship Specialty Start Date End Date Anson Arboleda DO PCP - General 04/17/10 04/25/[address] [place] [address] documented as of this encounter
--- OUTSIDE RECORDS SUMMARY | 2021-11-16 01:25 | XMS_ITS | Encounter Summary ---
:1950 Author Organization [facility] Address [facility] [address] [address] Care Team Providers Name Role Phone Anson Arboleda DO Primary Care Provider Encounter Details Date Type Department Care Team Description 01/15/2012 Orders Only Otolaryngology at [facility] Jayant, Pre-procedure lab [facility] Katerina De Anda MD exam (Primary Dx) [place] [address] [facility] [phone] [place] [facility]. [place], [place] [address] Social History Tobacco Use Types Packs/Day Years Used Date Former Smoker 1 40 Quit: 01/15/20 10 Smokeless Tobacco: Never Used Sex Assigned at Date Recorded Not on file documented as of this encounter Plan of Treatment Not on filedocumented as of this encounter Results Creatinine, serum (01/15/2012 12:30 PM EDT) athologist Signature Creatinine 1.04 0.80 - 1.50 CERNER mg/dL [facility] Comment: Please note that the pediatric reference intervals supplied above were not validated at [facility]. Results from pediatri c patients should be interpreted in conjunction to the patient's age, height and muscle mass. Estimated GFR >60 >=60 DANIELNER CRISTINA Ribeiro Comment: The National Kidney Disease Education Pr [...] disease. References: http://nkdep.nih.gov/resources/NKDEP_Sug gestn4Labs_0606_508.pdf http://www.kidney.org/professionals/kls/ pdf/faq_gfr.pdf Ignacio Farr, Phill NA, Chun AK, Garcia TS, Eric [...] EDT Resulting Agency Comment Spec In Lab Adilson Saba MD CHEMISTRY ORDERABLES Performing Organization Address City/State/[place] [address] [facility] documented in this encounter Visit Diagnoses Diagnosis Pre-procedure lab exam - Primary Pre-procedural laboratory examination documented in this encounter Care Teams Freight Adjuster Relationship Specialty Start Date End Date Anson Arboleda DO PCP - General 04/17/10 04/25/[address] [place] [address] documented as of this encounter
--- OUTSIDE RECORDS SUMMARY | 2021-11-16 01:25 | XMS_ITS | Encounter Summary ---
:1950 [place] [address] Care Team Providers Name Role Phone RoblesAnson yang Primary Care Provider Encounter Details Date Type Department Care Team Description 05/29/2012 Hospital Encounter [facility] Day [facility] at [facility] [address] [facility] [place] [address] [place] [address] [phone] (Wo rk) Social History Tobacco Use Types Packs/Day Years Used Date Former Smoker 1 40 Quit: 01/15/20 10 Smokeless Tobacco: Never Used Alcohol Use Standard Drinks/Week Comments Yes 0 (1 standard drink = 0.6 oz pure alcoho l) Sex Assigned at Date Recorded Not on file documented as of this encounter Last Filed Vital Signs Vital Sign Reading Time Taken Comments Blood Pressure 120/89 05/29/2012 6:02 PM EST Pulse 102 05/29/2012 6:02 PM EST Temperature 36.5 ??C (97.7 ??F) 05/29/2012 5:22 PM EST Respiratory Rate 16 05/29/2012 6:02 PM EST Oxygen Saturation 92% 05/29/2012 6:02 PM EST Inhaled Oxygen Concentration - - [...] straining significantly to have bowel movements. Use [id number] stool softeners if needed. 4. Sneeze with your mouth open. 5. Your nose may feel very congested post surgery (like a sinus infection). This is normal. You may use Afrin nasal spray as needed for the first 48 hours after surgery. 6. Start using nasal saline rinses twice a day on the day after surgery. Buy a Yoyo sinus rinse kit. You will notice blood-stained [...] may have during the day. ?? The [facility] facial operator can be reached at and can connect you with a resident front office representative if necessary after hours. ?? If you need to reschedule your appointment please call the clinic at . Future Appointments Date Time Provider Department Center 06/03/2012 10:45 AM KARLEE Velez MICHELLE [address] [place] [address] CLIN documented in this encounter Medications at Time of Discharge Medication Sig Dispensed Refills Start Date End Date [place]-3 Fatty Take 1 capsule by 0 Acids-Vitamin [...] Cleveland MD - 05/29/2012 6:17 PM EST [facility] [place] Note Patient Name: Pennie Kay : [id number] MR#: [id number] Case Date: 05/29/2012 Surgeon: Surgeon(s) and Role: * Jermaine lCeveland MD - Primary * Lashae Dooley MD [...] 1:200,000 epinephrine. At that point, using a [employer] [place] [employer] blade, a rectangular flap base posteriorly is [...] Operative Note Patient Name: Pennie Kay : [id number] MR#: [id number] Case Date: 05/29/2012 Surgeon: Surgeon(s) and Role: * Jermaine Cleveland MD - Primary * Lashae Dooley MD - Resident-Surgeon Candelario Preoperative diagnosis: dacryocystitis Postoperative diagnosis: dacryocystitis Procedure(s): NASAL, SINUS ENDOSCOPY, SURGICAL, WITH [id number] SEPTOPLASTY OR SMR, W/ OR W/O [...] Organization Address City/State/[place] [address] CERNER MILLENNIUM (ABNORMAL) BLOOD [...] Comment: Total Hemoglobin (in gm/dL) ?Based on [facility] Hematology ran ges: ?Age [...] Organization Address City/State/[place] [address] CERNER MILLENNIUM (ABNORMAL) BLOOD [...] Comment: Total Hemoglobin (in gm/dL) ?Based [place] [facility] Hematology ran ges: ?Age [...] Organization Address City/State/[place] [address] [facility] Anaerobic Culture (05/29/2012 2:09 PM EST) Component Value Ref Test Analysis Performed At Patholo gist Range Method Time Signature Anaerobic [facility]NER Culture ? Patient Name: PENNIE KAY ? Ordered By: JERMAINE CLEVELAND ? MR#: [id number] ?LOC: ??SDP ? /Sex: ??1950 (61 years), [...] Organization Address City/State/[place] [address] [facility] Body fluid culture (05/29/2012 2:09 PM EST) Component Value Ref Test Analysis Performed At [facility] Range Method Time Signature Body Fluid CERNER Culture ? Patient Name: PENNIE KAY ? Ordered By: JERMAINE CLEVELAND ? MR#: [id number] ?LOC: ??SDP ? /Sex: ??1950 (61 years), [...] Address City/State/ZIP Code Phon e Number [address] [employer] POCT Glucose (05/29/2012 12:04 PM EST) P athologist Signature POC Glucose 130 60 - 199 CERNER mg/dL [facility] Comment: Supplemental ranges: <110 mg/dL before meals <200 mg/dL all other times of the day Specimen Anatomical Collection Method Collection Time Receive d Time (Source) Location / / Volume Laterality Blood specimen 05/29/2012 12:04 3 (specimen) PM EST 12:04 PM EST Jermaine Cleveland MD POINT OF CARE TEST ORDERABLE S Performing Organization Address City/State/ZIP Code Phon e Number [address] [employer] Prothrombin Time (05/29/2012 9:49 AM EST) P athologist Signature PT 14.4 11.9 - 14.7 [facility] Comment: [facility] Transfusion Committee Guidelines: I NR less than 2.0, PTT less than OR equal to 43.5 seconds, or Fibrinogen gre ater than or equal to 100 mg/dl indicate adequate procoagulant activity for hemostasis in patients without underlying bleeding disorders. INR 1.1 0.9 - 1.1 [facility] Specimen Anatomical Collection Method Collection Time Receive d Time (Source) Location / / Volume Laterality Blood specimen 05/29/2012 9:49 AM 013 (specimen) EST 10:03 AM EST Resulting Agency Comment Spec In Lab Autumn Chao MD HEMATOLOGY ORDERABLES Performing Organization Address City/State/[place] [address] [facility] documented in this encounter Visit Diagnoses Not on filedocumented in this encounter Administered Medications Inactive Administered Medications - up to 3 most recent administrations Medication Order MAR Action Action Date Dose Rate Site lactated ringers infusion New Bag 05/29/2012 12:45 PM 1,000 mLs 1 00 mL/hr 1,000 mL EST 1,000 mL, at 100 mL/hr, Intravenous, CONTINUOUS, Starting on Fri05/29/12 at 1245, Until Fri05/29/12 at 2247, Day of Surgery (Day of Procedure) OXYcodone (ROXICODONE) immediate release tablet Given 05/29/2012 5:45 PM EST 5 mg 5 mg 5 mg, Oral, EVERY 6 HOURS PRN, Starting on Fri05/29/12 at 1701, Until Fri05/29/12 at 2247, Pain, Routine documented in this encounter Active and [...] PRN, Starting 05/29/12 at 1356, U ntil 05/29/12 at 2247, Intra-Operative (Intra-Procedure), Routine bacitracin ointment [...] PRN, Starting 05/29/12 at 1437, U ntil 05/29/12 at 2247, Intra-Operative (Intra-Procedure), Routine OXYcodone (ROXICODONE) immediate release tablet 5 mg 1745 (Given - Provider: Mireille Gonzalez RN) 5 mg, Oral, EVERY 6 HOURS PRN, Starting Fri05/29/12 at 1701, Until 05/29/12 at 2247, Pain, Routine oxymetazoline (AFRIN) 0.05 % nasal spray (CANCELED) 1436 (Given - Provider: Jermaine Cleveland MD - Comment: Mixed with 4 mL of 4% cocaine external solution to soak nasal patties.) ONCE PRN, Starting 05/29/12 at 1436, U ntil Fri05/29/12 at 2247, Congestion, Band Singer recommended duration is 3 days., Intra-Operative (Intra-Procedure), Routine documented in this encounter Care Teams Electrician Helper Relationship Specialty Start Date End Date Anson Arboleda DO PCP - General 04/17/10 04/25/[address] [place] [address] documented as of this encounter
--- OUTSIDE RECORDS SUMMARY | 2021-11-16 01:25 | XMS_ITS | Encounter Summary ---
:1950 Author Organization [facility] [place] [address] Care Team Providers Name Role Phone RoblesAnson yang Primary Care Provider Reason for Visit Reason Comments Post Op Encounter Details Date Type Department Care Team Description 01/04/2013 Office Visit Otolaryngology at [facility], Dacrocystitis (Primary [facility] PA Dx) [place] [address] CENTER [phone] [place] [address] Social History Tobacco Use Types Packs/Day Years [...] Sign Reading Time Taken Comments Blood Pressure 107/68 01/04/2013 12:47 PM EDT Pulse 60 01/04/2013 12:47 PM EDT Temperature - - Respiratory Rate - - Oxygen Saturation - - Inhaled Oxygen Concentration - - Weight 138.1 kg (304 lb 6 oz) 01/04/2013 12:47 PM EDT Height 182.9 cm (6') 01/04/2013 12:47 PM EDT Body Mass Index 41.28 01/04/2013 12:47 PM EDT documented in this encounter Progress Notes Prashanth Juárez PA - 01/04/2013 1:20 PM EDT Acosta Kay is one week status post: Procedure(s): NASAL, SINUS ENDOSCOPY, SURGICAL, WITH DACRYOCYSTORHINOSTOMY-MURIEL EXCISION, INFERIOR TURBINATE, PARTIAL OR COMPLETE For dacrocystitis. Mr. Kay reports that he has had minimal troubles postoperatively over this past week. The first couple of days he noted some diluted bloody discharge but has had no episodes of kendall epistaxis. He also feels that he is breathing much more comfortably through the nose and his snoring has improved due to this. On exam, he appears healthy, in no acute distress, alert and oriented. Nose was sprayed with topical lidocaine and Privine. Fiberoptic exam reveals some minor crusting in the nose but everything appears to be healing well. No mucopurulent discharge is detected on the right side. The left side demonstrates some clear to slightly cloudy mucus drainage of the posterior choana. Mr. Kay is currently doing well postoperatively. He is to continue with his rinses. He was asking about restarting his Coumadin, and I feel that since everything is healing well he may start that in a couple of days with the understanding that he monitor any bleeding very closely. Dr. Cleveland will be notified and followup will be arranged per his recommendation. Prashanth Juárez PA-C Department of Otolaryngology [facility] [place] [address] Office Phone - documented in this encounter Plan of Treatment Not on filedocumented as of this encounter Visit Diagnoses Diagnosis Dacrocystitis - Primary Dacryocystitis, unspecified documented in this encounter Care Teams Wool Carder Relationship Specialty Start Date End Date Anson Arboleda DO PCP - General 04/17/10 04/25/[address] [place] [address] documented as of this encounter
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
--- OUTSIDE RECORDS SUMMARY | 2021-11-16 01:25 | XMS_ITS | Encounter Summary ---
:1950 Author Organization [facility] [address] Care Team Providers Name Role Phone RoblesAnson Primary Care Provider Encounter Details Date Type Department Care Team Description 01/15/[address] Scan at [facility] Sinusitis [facility] [place] [address] Social History Tobacco Use Types Packs/Day Years Used Date Former Smoker 1 40 Quit: 01/15/20 10 Smokeless Tobacco: Never Used Sex Assigned at Date Recorded Not on file documented as of this encounter Medications at Time of Discharge Medication Sig Dispensed Refills Start Date End Date [place]-3 Fatty Take 1 capsule by 0 Acids-Vitamin E (FISH mouth daily. OIL) 1,000 mg Cap citalopram (CELEXA) 10 Take 10 mg by mouth 0 12/10/2016 mg tablet daily. sildenafil (VIAGRA) 25 Take 25 mg by mouth 0 06/03/2012 mg tablet as needed. aspirin 81 mg chewable Take 81 mg by mouth 0 05/29/2012 tablet daily. magnesium chloride (MAG Take 535 mg by mouth 0 12/28/2012 DELAY) 64 mg CR tablet daily. WARFARIN SODIUM 1M Tablet(s), PO, 0 7 05/29/2012 (COUMADIN ORAL) Once daily,as directed niacin (NIASPAN) 500 mg 0 06/25/2006 1 05/31/2013 ER tablet losartan-hydrochlorothia 0 06/25/2006 12/10/2016 zide (HYZAAR) 100-25 mg per tablet documented as of this encounter Plan of Treatment Not on filedocumented as of this encounter Procedures Procedure Name Priority Date/Time Associated Diagnosis Comme nts CT ORBITS W Routine 01/15/2012 1:55 PM Sinusitis Results f or this CONTRAST EDT procedure are i n the results [...] Film and interpretation reviewed by the attending Adilson Saba MD IMG CT ORDERABLES documented in this encounter Visit Diagnoses Diagnosis Sinusitis Unspecified sinusitis (chronic) documented in this encounter Administered Medications Inactive Administered Medications - up to 3 most recent administrations Medication Order MAR Action Action Date Dose Rate Site iohexol (OMNIPAQUE) 350 mg/mL Given 01/15/2012 1:44 PM EDT 38,50 0 mg injection 38,500 mg 38,500 mg (110 mL), Intravenous, ONCE PRN, 1 dose, Starting on Fri01/15/12 at 1344, Until Fri01/15/12 at 1344, Per Protocol, Routine documented in this encounter Care Teams Machine Molder Squeeze Relationship Specialty Start Date End Date Anson Arboleda DO PCP - General 04/17/10 04/25/[address] [place] [address] documented as of this encounter
--- OUTSIDE RECORDS SUMMARY | 2021-11-16 01:25 | XMS_ITS | Encounter Summary ---
:1950 Author Organization [facility] [place] [address] Care Team Providers Name Role Phone Anson Arboleda DO Primary Care Provider Reason for Visit Reason Onset Date Comments Other 02/06/2012 Encounter Details Date Type Department Care Team Description 02/06/2012 Telephone Otolaryngology at [facility] Berenice Mccartney RN Other [address] [address] Social History Tobacco Use Types Packs/Day Years Used Date Former Smoker 1 40 Quit: 01/15/20 10 Smokeless Tobacco: Never Used Alcohol Use Standard Drinks/Week Comments Yes 0 (1 standard drink = 0.6 oz pure alcoho l) Sex Assigned at Date Recorded Not on file documented as of this encounter Miscellaneous Notes Telephone Encounter - Berenice Mccartney RN - 02/06/2012 2:28 PM EDT Patient saw Dr. Saba 01/14, followed by sinus CT and referral to ophthalmology. Dr. Saba planning left maxillary sinus surgery and has spoke with Dr. Cleveland in the ENT clinic who agrees to join him in surgery to do left tear duct surgery. Patient very nervous, had several questions. I was able to answer his questions and reassure him. Dr. Saba plans to get an anesthesia consult pre op. Patient is on coumadin and aspirin. He has told me that his doctor states it is ok for him to be offit for one week prior to surgery. Surgery yet to be scheduled. Patient will call me with any furtherquestions or concerns. documented in this encounter Plan of Treatment Not on filedocumented as of this encounter Visit Diagnoses Not on filedocumented in this encounter Care Teams Insole Reinforcer Relationship Specialty Start Date End Date Anson Arboleda DO PCP - General 04/17/10 04/25/[address] [place] [address] documented as of this encounter
--- OUTSIDE RECORDS SUMMARY | 2021-11-16 01:25 | XMS_ITS | Encounter Summary ---
:1950 Author Organization [facility] [place] [address] Care Team Providers Name Role Phone RoblesAnson yang Primary Care Provider Encounter Details Date Type Department Care Team Description 01/15/[address] Scan at [facility], DR WILDER Sinusitis [facility] Adilson Saba MD [facility] [place] [address] [place] [address] Social History Tobacco Use Types Packs/Day Years Used Date Former Smoker 1 40 Quit: 01/15/20 10 Smokeless Tobacco: Never Used Sex Assigned at Date Recorded Not on file documented as of this encounter Medications at Time of Discharge Medication Sig Dispensed Refills Start Date End Date Moca-3 Fatty Take 1 capsule by 0 Acids-Vitamin [...] per tablet documented as of this encounter Miscellaneous Notes Miscellaneous - Provider, Scanning - 01/20/2012 10:34 AM EDT documented in this encounter Plan of Treatment Not on filedocumented as of this encounter Procedures Procedure Name Priority Date/Time Associated Diagnosis Comme nts CT SINUS W CONTRAST Routine 01/15/2012 1:55 PM Sinusitis Re sults for this EDT procedure are i n the results section. documented in this encounter Results CT sinus with contrast (01/15/2012 1:55 PM [...] (chronic) documented in this encounter Care Teams Adjunct Faculty For Medical Terminology Relationship Specialty Start Date End Date Anson Arboleda DO PCP - General 04/17/10 04/25/[address] [place] [address] documented as of this encounter
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
--- OUTSIDE RECORDS SUMMARY | 2021-11-16 01:25 | XMS_ITS | Encounter Summary ---
:1950 Author Organization [facility] Address [facility] [place] [address] Care Team Providers Name Role Phone Robles Anson Primary Care Provider Reason for Visit Reason Comments Follow-up DACRYOCYSTORHINOSTOMY; stent dislodged and moves out of place during blinking Encounter Details Date Type Department Care Team Description 06/29/2013 Follow-Up Otolaryngology at [facility] Praneeth Cleveland Lacrimal duct [facility] Katerina Vick [place], [place] [address] [facility] (Primary Dx) [phone] OTOLARYNGOLOGY [place]PT. [place], [place] [address] Social History Tobacco Use Types [...] Sign Reading Time Taken Comments Blood Pressure 100/71 06/29/2013 1:18 PM EST Pulse 84 06/29/2013 1:18 PM EST Temperature 36.8 ??C (98.2 ??F) 06/29/2013 1:18 PM EST Respiratory Rate - - Oxygen Saturation 95% 06/29/2013 1:18 PM EST Inhaled Oxygen Concentration - - Weight 143.8 kg (317 lb) 06/29/2013 1:18 PM EST Height 182.9 cm (6') 06/29/2013 1:18 PM EST Body Mass Index 42.99 06/29/2013 1:18 PM EST documented in this encounter Progress Notes Praneeth Cleveland MD - 06/29/2013 1:43 PM EST Images from the original note were not included. Subjective: Patient ID: Acosta Kay is a 62 y.o. male. 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 Patient is s/p nasal and [...] symptoms. No further infection/orbital pain/facial redness/nasal pain/epiphora. Noted 2 days ago that RIGHT sided catheter appeared to be out of place in his R eye. Called the office to be seen. Again feels great, denying epiphora and dacryocystitis. No pain Past Medical History Diagnosis Date ??? Trauma ??? Neuromuscular disorder ??? Hyperlipidemia ??? Cardiac disease ??? Diabetes mellitus ??? Atrial fibrillation, chronic ??? COPD (chronic obstructive pulmonary disease) ??? Hypertension Past Surgical History Procedure Date ??? Nasal scopy, rmv tiss maxill sinus 04/03/2012 NASAL, SINUS ENDOSCOPY, REMOVE TISSUE MAXILLARY SINUS, MURIEL performed by SHI TURNER at [facility] MAIN OR ??? Nasal scopy, remv totl ethmoid 04/03/2012 NASAL, SINUS ENDOSCOPY, TOTAL ETHMOIDECTOMY-MURIEL performed by SHI TURNER at [facility] MAIN OR ??? Nasal/sinus scopy, surg tear duct 05/29/2012 NASAL, SINUS ENDOSCOPY, SURGICAL, WITH DACRYOCYSTORHINOSTOMY-MURIEL performed by rTixie Cesar [facility] MAIN OR ??? Repair of nasal septum 05/29/2012 SEPTOPLASTY OR SMR, W/ OR W/O CARTILAGE SCORING, CONTOURING OR REPLACEMENT W/ GRAFT performed by Praneeth Cleveland MD at [facility] MAIN OR ??? Release of nasal adhesions 05/29/2012 LYSIS INTRANASAL SYNECHIA performed by Praneeth Cleveland MD at [facility] MAIN OR ??? Nasal/sinus scopy, surg tear duct 12/28/2012 NASAL, SINUS ENDOSCOPY, SURGICAL, WITH DACRYOCYSTORHINOSTOMY-MURIEL performed by Praneeth Cleveland MD at [facility] MAIN OR ??? Excision turbinate 12/28/2012 EXCISION, INFERIOR TURBINATE, PARTIAL OR COMPLETE performed by Praneeth Cleveland MD at [facility] MAIN OR Patient Active Problem List [...] by mouth daily. , Disp: , Rfl: aspirin 81 mg tablet, Take 81 mg by mouth daily. , Disp: , Rfl: ; morphine (MS CONTIN) 15 mg 12 hr tablet, Take 15 mg by mouth daily., Disp: , Rfl: ; citalopram (CELEXA) 10 mg tablet, Take 10 mg by mouth daily., Disp: , Rfl: ; [place]-3 Fatty Acids-Vitamin E (FISH OIL) 1,000 mg Cap, Take by mouth., Disp: , Rfl: ; metoprolol succinate (TOPROL XL) 200 mg 24 hr tablet, 200mg, PO, Once daily, Disp: , Rfl: niacin (NIASPAN) 500 mg ER tablet, , [...] tobacco: Never Used ??? Alcohol Use: Yes Comment: 1 beer a day ??? Drug [...] passed in the nasal cavities without difficulty. Findings:On the LEFT, stent in proper position, no pus. On the RIGHT difficult to visualize end of Sweeney tube. Inflammatory tissue noted at lacrimal sac opening. Cannot readily identify the end of the stent . Assessment and Plan: I attempted multiple trials of retrieving the nasal aspect of stent but patient in pain. Discussed with patient and his should take him to the OR for formal endoscopy and retrieval of stent. He understands there is a risk that the lacrimal sac opening may close over time and need another DCR. Consent signed. Will plan in the next few days documented in this encounter Plan of Treatment Not on filedocumented as of this encounter Visit Diagnoses Diagnosis Lacrimal duct stenosis, bilateral - Prim mary documented in this encounter Care Teams Flight Follower Relationship Specialty Start Date End Date Anson Arboleda DO PCP - General 04/17/10 04/25/[address] [place] [address] documented as of this encounter
--- OUTSIDE RECORDS SUMMARY | 2021-11-16 01:25 | XMS_ITS | Encounter Summary ---
:1950 Author Organization [facility] [place] [address] Care Team Providers Name Role Phone Anson Arboleda DO Primary Care Provider Encounter Details Date Type Department Care Team Description 03/31/2012 Orders Only Anesthesiology Wilma Patrick, [place] [address] [address] [phone] PRE-ADMISSION TESTING [place] [id number] Anesthesia Record Procedure Summary Procedure Name Responsible Anesthesia Start Anesthesia Stop Time Anesthesiologist Time NASAL, SINUS Aryan Mcgrath MD 04/03/12 0828 04/03/12 104 1 ENDOSCOPY, REMOVE TISSUE MAXILLARY SINUS, MURIEL (WRVU 5.45) (Left Nose) Events Date Time Event Comment 04/03/2012 0754 0828 Start 1041 Stop No medications on file. Agents No agents on file. Blood No blood administrations on file. Lines, Drains, and Airways Type Details Placement Removal (RETIRED) Arterial 20 04/03/12 0000 by LIne My Mittal, HOWARD Incision 04/03/12; other (see 04/03/12 0000 by comments) (Left My Mittal RN sinus) PIV 04/03/12; 0728; 04/03/12 0728 by 04/03/12 1159 b y 04/03/12; 1159 Nathaniel Mclain RN Achilles, Li nda S RN documented in this encounter Social History Tobacco [...] as of this encounter Visit Diagnoses Diagnosis Atrial fibrillation documented in this encounter Care Teams Plow Mechanic Relationship Specialty Start Date End Date Anson Arboleda DO PCP - General 04/17/10 04/25/[address] [place] [address] documented as of this encounter
--- OUTSIDE RECORDS SUMMARY | 2021-11-16 01:25 | XMS_ITS | Encounter Summary ---
:1950 Author Organization [place] [address] Care Team Providers Name Role Phone Anson Arboleda Primary Care Provider Encounter Details Date Type Department Care Team Description 12/28/2012 Surgery Main Operating Room Jermaine Cleveland N ASAL, SINUS ENDOSCOPY, [facility] SURGICAL, [facility] DACRYOCYSTORHINOSTOMY-B [facility] DR OLGUIN (WRVU 9.04) [facility] [place] [address] [place] [address] [phone] (Wo rk) Social History Tobacco Use Types [...] Sign Reading Time Taken Comments Blood Pressure 129/88 12/28/2012 11:47 AM EDT Pulse 76 12/28/2012 11:47 AM EDT Temperature 36.2 ??C (97.2 ??F) 12/28/2012 11:47 AM EDT Respiratory Rate 18 12/28/2012 11:47 AM EDT Oxygen Saturation 95% 12/28/2012 11:47 AM EDT Inhaled Oxygen Concentration - - Weight [...] Center 01/04/2013 12:45 PM Prashanth Juárez PA [facility] [address] CLIN Contact Information: ?? The Otolaryngology nurse can be reached at and can answer any questions you may have during the day. ?? The [facility] lawn mower operator can be reached at and can connect you with a resident consulting project director if necessary after hours. ?? If you need to reschedule your appointment please call the clinic at . documented in this encounter Medications at Time of Discharge Medication Sig Dispensed Refills Start Date End Date warfarin (COUMADIN) 5 mg Take by mouth daily. 0 tablet Veblen-3 Fatty Take 1 capsule by 0 Acids-Vitamin [...] Cleveland MD - 12/28/2012 3:54 PM EDT [facility] Operative Note Patient Name: Pennie Hubbard : [id number] MR#: [id number] Case Date: 12/28/2012 Surgeon: Surgeon(s) and Role: * Jermaine Cleveland MD - Primary * Lashae Dooley MD Preoperative diagnosis: dacryocystitis Postoperative diagnosis: dacryocystitis Procedure(s): NASAL, SINUS ENDOSCOPY, SURGICAL, WITH DACRYOCYSTORHINOSTOMY-MURIEL EXCISION, INFERIOR TURBINATE, PARTIAL OR COMPLETE General Estimated Blood Loss: 25ML Drains: NONE. GODINEZ LACRIMAL STENT Disposition: awakened from anesthesia, extubated [...] a 0-degree endoscope. The position of the Godinez tube that had been inserted last year [...] 2 lacrimal probe, we then insert the Godinez probe superiorly and inferiorly using their guidewires [...] EDT Brief Operative Note Patient Name: Pennie Hubbard : [id number] MR#: [id number] Case Date: 12/28/2012 Surgeon: Surgeon(s) and Role: [...] anesthesia records Estimated Blood Loss: 15cc Drains: Godinez lacrimal stent in upper and lower medial [...] Results Anaerobic Culture (12/28/2012 1:45 PM EDT) [facility] Method Time Signature Anaerobic CERNER Culture ? Patient Name: PENNIE HUBBARD ? Ordered By: JERMAINE CLEVELAND [facility] ? MR#: [id number] ?LOC: ??SDP ? /Sex: ??1950 (62 years), [...] Organization Address City/State/[place] [address] DANIELMARCELO WILCOXKORIIUM Body fluid culture (12/28/2012 1:45 PM EDT) Component Value Ref Test Analysis Performed At [facility] gist Range Method Time Signature Body Fluid CERNER Culture ? Patient Name: PENNIE HUBBARD ? Ordered By: JERMAINE CLEVELAND ? MR#: [id number] ?LOC: ??SDP ? /Sex: ??1950 (62 years), [...] Organization Address City/State/ZIP Code Phon e Number [address] [facility] POCT Glucose (12/28/2012 12:08 PM EDT) athologist Signature POC Glucose 107 60 - 199 CERNER mg/dL [facility] Comment: Supplemental ranges: <110 mg/dL before meals <200 mg/dL all other times of the day Specimen Anatomical Collection Method Collection Time Receive d Time (Source) Location / / Volume Laterality Blood specimen 12/28/2012 12:08 3 (specimen) PM EDT 12:08 PM EDT Jermaine Cleveland MD POINT OF CARE TEST ORDERABLE S Performing Organization Address City/State/ZIP Code Phon e Number [address] [facility] EKG 12 Lead (12/28/2012 11:50 AM EDT) Component Value Ref Range Test Analysis Performed Pathologis t Method Time At Signature Ventricular rate 76 BPM MUSE SYSTEM Atrial Rate 82 BPM MUSE SYSTEM QRS Duration 94 ms MUSE SYSTEM Q-T Interval 398 ms MUSE SYSTEM QTC Calculated 447 ms MUSE SYSTEM (Bezet) Calculated R [place] 57 degrees MUSE SYSTEM Calculated T [place] 95 degrees MUSE SYSTEM INTERPRETATION Atrial fibrillation [...] Cleveland MD ECG ORDERABLES Performing Organization Address City/[facility]/ZIP Code Phon e Number MUSE SYSTEM Prothrombin Time (12/28/2012 10:38 AM EDT) P athologist Signature PT 14.8 12.0 - 15.0 CERNER sec MILLENNIUM Comment: [facility] Transfusion Committee Guidelines: I NR less [...] Organization Address City/State/[place] [address] CERNER MILLENNIUM (ABNORMAL) Glucose, [...] mg/dL should be repeated on a subseq uent day. Diagnosis and Classification of Diabetes Mellitus, Position Statement from the [place] [employer]. ??Diabete s Care, Volume 33, Supplement 1, May 2009 Specimen Anatomical Collection Method Collection Time Receive d Time (Source) Location / / Volume Laterality Blood specimen 12/28/2012 10:38 3 (specimen) AM EDT 10:43 AM EDT Resulting Agency Comment Spec In Lab Jermaine Cleveland MD CHEMISTRY ORDERABLES Performing Organization Address City/State/ZIP Code Phon e Number [address] [facility] documented in this encounter Visit Diagnoses Not on filedocumented in this encounter Administered Medications Inactive Administered Medications - up to 3 most recent administrations Medication Order MAR Action Action Date Dose Rate Site bacitracin-polymyxin b Given 12/28/2012 3:29 PM EDT 1 Tube (POLYSPORIN) ophthalmic ointment ONCE PRN, Starting on Fri12/28/12 at 1529, Until Fri12/28/12 at 2256, Intra-Operative (Intra-Procedure) balanced salt (BSS) irrigation Given 12/28/2012 3:40 PM EDT 1 Vignesh ttle Right Eye solution ONCE PRN, Starting on Fri12/28/12 at 1540, Until Fri12/28/12 at 2256, Intra-Operative (Intra-Procedure), Routine cocaine 4 % external solution Given 12/28/2012 1:44 PM EDT 4 mLs 19- S urgical Site ONCE PRN, Other, Starting on Fri12/28/12 at 1344, Until Fri12/28/12 at 2256, Intra-Operative (Intra-Procedure) gelatin adsorbable (GELFOAM) sponge Given 12/28/2012 3:16 PM EDT 1 each ONCE PRN, Starting on Fri12/28/12 at 1516, Until Fri12/28/12 at 2256, Intra-Operative (Intra-Procedure) lactated ringers infusion 1,000 New Bag 12/28/2012 12:00 PM ED T 1,000 mLs 100 mL/hr mL 1,000 mL, at 100 mL/hr, Intravenous, CONTINUOUS, Starting on Fri12/28/12 at 1200, Until Fri12/28/12 at 2256, Day of Surgery (Day of Procedure) lidocaine-epiNEPHrine 1 Given 12/28/2012 1:48 PM 6 mLs 19- Surgical Site %-1:200,000 injection EDT ONCE PRN, Starting on Fri12/28/12 at 1348, Until Fri12/28/12 at 2256, Intra-Operative (Intra-Procedure), Routine OXYcodone-acetaminophen (PERCOCET) 5-325 mg Given 09/2012 5:10 PM EDT 1 tablet per tablet 1-2 tablet 1-2 tablet, Oral, EVERY 4 HOURS PRN, Starting on Fri12/28/12 at 1557, Until Fri12/28/12 at 2256, Pain, Maximum dose of acetaminophen is 4000 mg from all sources in 24 hours., PACU Recovery, Routine oxymetazoline (AFRIN) 0.05 % Given 12/28/2012 1:44 PM 3 sprays 19- Surgical Site nasal spray EDT ONCE PRN, Starting on Fri12/28/12 at 1344, Until Fri12/28/12 at 2256, Congestion, Campaign Analyst recommended duration is 3 days., Intra-Operative (Intra-Procedure), Routine tetracaine HCl (PF) (PONTOCAINE) ophthalmic Given 09/2012 3:28 PM EDT 1 Bottle solution ONCE PRN, Starting on Fri12/28/12 at 1528, Until Fri12/28/12 at 2256, Intra-Operative (Intra-Procedure), Routine documented in [...] PRN, Starting Fri12/28/12 at 1540, U ntil Fri12/28/12 at 2256, Intra-Operative (Intra-Procedure), Routine cocaine 4 [...] PRN, Starting Fri12/28/12 at 1348, U ntil Fri12/28/12 at 2256, Intra-Operative (Intra-Procedure), Routine OXYcodone-acetaminophen (PERCOCET) [...] patties inserted in nose) ONCE PRN, Starting Fri12/28/12 at 1344, U ntil 12/28/12 at 2256, Congestion, Campaign Analyst recommended duration is 3 days., Intra-Operative (Intra-Procedure), Routine tetracaine HCl (PF) (PONTOCAINE) ophthalmic solution (CANCELED) 1528 (Given - Provider: Jermaine Cleveland MD) ONCE PRN, Starting 12/28/12 at 1528, U ntil Fri12/28/12 at 2256, Intra-Operative (Intra-Procedure), Routine documented in this encounter Care Teams Weights And Measures Inspector Relationship Specialty Start Date End Date Anson Arboleda DO PCP - General 04/17/10 04/25/[address] [place] [address] documented as of this encounter
--- OUTSIDE RECORDS SUMMARY | 2021-11-16 01:25 | XMS_ITS | Encounter Summary ---
:1950 Author Organization [facility] Address [facility] [place] [address] Care Team Providers Name Role Phone Anson Arboleda Primary Care Provider Reason for Visit Reason Comments Post Op Encounter Details Date Type Department Care Team Description 06/03/2012 Office Visit Otolaryngology at [facility] Prashanth Juárez Epiphora ([facility] Katerina DESIR Dx) [place] [address] [place] [address] CENTER OTOLARYNGOLOGY DEPT. [place], [place] [address] Social History Tobacco Use Types Packs/Day Years Used Date Former Smoker 1 40 Quit: 01/15/20 10 Smokeless Tobacco: Never Used Alcohol Use Standard Drinks/Week Comments Yes 0 (1 standard drink = 0.6 oz pure alcoho l) Sex Assigned at Date Recorded Not on file documented as of this encounter Last Filed Vital Signs Vital Sign Reading Time Taken Comments Blood Pressure 121/75 06/03/2012 10:31 AM EST Pulse 97 06/03/2012 10:31 AM EST Temperature - - Respiratory Rate - - Oxygen Saturation - - Inhaled Oxygen Concentration - - Weight 138 kg (304 lb 3 oz) 06/03/2012 10:31 AM EST Height 182.9 cm (6') 06/03/2012 10:31 AM EST Body Mass Index 41.26 06/03/2012 10:31 AM EST documented in this encounter Progress Notes Prashanth Juárez PA - 06/03/2012 11:17 AM EST Acosta Kay is 61 years of age. 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 This was performed by Dr. Cleveland. Postoperatively, the patient reports that he is doing very well. His reports he is no longer snoring as much. 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 He is very pleased with the result so far. He does have modified dual splints in the nose. These were removed and the nasal cavities suctioned. There is no sign of any obstruction. No bleeding. In review, patient is doing very well postoperatively. I set up a three-week followup with Dr. Cleveland for postop check. He understands that he needs to continue to do his nasal rinses. He was taken off his warfarin and aspirin for the surgery. I did tell him my suspicion was that he could go back on this for his atrial fibrillation and they will be checking with his doctor in regard to this. Prashanth Juárez PA-C Department of Otolaryngology [facility] [place] [address] Office Phone - documented in this encounter Plan of Treatment Not on filedocumented as of this encounter Visit Diagnoses Diagnosis Epiphora - Primary Epiphora, unspecified as to cause documented in this encounter Care Teams Pipe Maker Relationship Specialty Start Date End Date Anson Arboleda DO PCP - General 04/17/10 04/25/[address] [facility] [place] [address] documented as of this encounter
--- OUTSIDE RECORDS SUMMARY | 2021-11-16 01:25 | XMS_ITS | Encounter Summary ---
:1950 Author Organization [facility] Address [facility] [place] [address] Care Team Providers Name Role Phone Anson Arboleda DO Primary Care Provider Encounter Details Date Type Department Care Team Description 12/23/2012 Orders Only Anesthesiology Wilma Patrick, Atrial fibrillation [facility] [address] (Primary Dx) [place] [address] PRE-ADMISSION [phone] TESTING [place], [place] [address] Anesthesia Record Procedure Summary Procedure Name Responsible [...] Out 1545 an stop data 1547 Stop No medications on file. Agents No [...] 12/28/12; 1750 Dora Angeles Ingalls, W endy L RN RN (RETIRED) Mask Ventilation: 12/28/12 1348 [...] this encounter Visit Diagnoses Diagnosis Atrial fibrillation - Primary documented in this encounter Care Teams Rim Fire Priming Tool Setter Relationship Specialty Start Date End Date Anson Arboleda DO PCP - General 04/17/10 04/25/[address] [place] [address] documented as of this encounter
--- OUTSIDE RECORDS SUMMARY | 2021-11-16 01:25 | XMS_ITS | Encounter Summary ---
:1950 [place] [address] Care Team Providers Name Role Phone Anson Arboleda DO Primary Care Provider Encounter Details Date Type Department Care Team Description 04/03/2012 Anesthesia Event Main Operating Room Aryan Forrest MD [facility] [place] [address] [facility] Wilma Patrick PA [facility] [place] [address] [facility] [place] [address] Anesthesia Record Procedure Summary Procedure Name [...] b y 04/03/12; 1159 Nathaniel Mclain RN Evelin Soriano RN documented in this encounter Social History Tobacco Use Types Packs/Day Years Used Date Former Smoker 1 40 Quit: 01/15/20 10 Smokeless Tobacco: Never Used Alcohol Use Standard Drinks/Week Comments Yes 0 (1 standard drink = 0.6 oz pure alcoho l) Sex Assigned at Date Recorded Not on file documented as of this encounter OR Notes Anesthesia Postprocedure Evaluation - Aryan Mcgrath MD - 04/03/2012 12:17 PM EST Patient: Acosta Kay Procedure(s) Performed: Procedure(s): NASAL, SINUS ENDOSCOPY, REMOVE TISSUE MAXILLARY SINUS, MURIEL NASAL, SINUS ENDOSCOPY, TOTAL ETHMOIDECTOMY-MURIEL Patient location: PACU Post-op pain: Adequate analgesia Post-op nausea: no nausea or vomiting Last Vitals: Filed Vitals: 04/03/12 1107 BP: 125/42 Pulse: 83 Temp: Resp: 18 Post-op cardiovascular and respiratory status: is stable Level of consciousness: awake, alert and oriented Complications: no apparent complications and tolerated the procedure well Fluid Status: normal Anesthesia Preprocedure Evaluation - Aryan Mcgrath MD - 04/03/2012 5:42 AM EST Today I evaluated Acosta Kay a 61 y.o. male. Procedure(s): NASAL, SINUS ENDOSCOPY, REMOVE TISSUE MAXILLARY SINUS, MURIEL NASAL, SINUS ENDOSCOPY, TOTAL ETHMOIDECTOMY-MURIEL NASAL, SINUS ENDOSCOPY, SURGICAL, WITH DACRYOCYSTORHINOSTOMY-MURIEL NASAL, SINUS ENDOSCOPY, SURGICAL, WITH DACRYOCYSTORHINOSTOMY-MURIEL Patient Active Problem List Diagnoses ??? Chronic sinusitis ??? Dacrocystitis ??? Dacryocystitis, chronic Past Medical History Diagnosis Date ??? Trauma ??? Neuromuscular disorder ??? Hyperlipidemia ??? Cardiac disease ??? Diabetes mellitus ??? Atrial fibrillation, chronic ??? COPD (chronic obstructive pulmonary disease) ??? Hypertension No past surgical history on file. History Substance Use Topics ??? Smoking status: Former Smoker -- 1.0 packs/day for 40 years Quit date: 01/14/2010 ??? Smokeless tobacco: Never Used ??? Alcohol Use: Yes Allergies Allergen Reactions ??? Simvastatin CIS - periphreal neuropathy ??? Ibuprofen CIS - itching Medications: MAR and/or home medications have been reviewed. Physical Exam: There were no vitals filed for this visit. There is no height or weight on file to calculate BMI. Anesthesia Physical Exam Anesthesia Plan: ASA 3 General with intravenous induction Patient is a 61 year in atrial fibrillation, COPD, and Type II DM. He has relatively poor functionaltolerance. He denies GERD, recent URI's, and bleeding diathesis. His reports that he has sleep apnea. I discussed a GA with ETT, possible awake fiberoptic intubation, possible prolonged emergence with prolonged intubation and an arterial line. Informed Consent: Anesthetic plan and risks discussed with patient and spouse. Plan discussed with resident. Emily. Assessment: documented in this encounter Miscellaneous Notes Addendum Note - Crystal Klein - 04/06/2012 9:55 AM EST Addendum created 04/06/12 0955 by Crystal Klein Modules edited:Anesthesia Events, Anesthesia Responsible Staff documented in this encounter Plan of Treatment Not on filedocumented as of this encounter Visit Diagnoses Not on filedocumented in this encounter Care Teams Garment Cutter Relationship Specialty Start Date End Date Anson Arboleda DO PCP - General 04/17/10 04/25/[address] [place] [address] documented as of this encounter
--- OUTSIDE RECORDS SUMMARY | 2021-11-16 01:25 | XMS_ITS | Encounter Summary ---
:1950 Author Organization [facility] [place] [address] Care Team Providers Name Role Phone RoblesAnson Primary Care Provider Reason for Referral Consultation (Routine) - Closed Specialty Diagnoses / Procedures Referred By Contact Refer red To Contact Ophthalmology Diagnoses Dacrocystitis Lashae Dooley MD [facility] [address] [place] [address] D [facility] [place] [address] [place] [address] Referral ID Status Reason Start Date Expiration Date Visits V isits Requested Authorized [id number] Closed Consult, 01/20/2012 07/18/2012 1 1 Test & Treat Encounter Details Date Type Department Care Team Description 01/20/2012 Orders Only Otol[facility]ology at [facility] Lashae Dooley, Dacrocystitis ([facility] MD Dx) [place] [address] CENTER [phone] [place] [address] Social History Tobacco Use Types Packs/Day Years Used Date Former Smoker 1 40 Quit: 01/15/20 10 Smokeless Tobacco: Never Used Sex Assigned at Date Recorded Not on file documented as of this encounter Plan of Treatment Scheduled Referrals Name Type Priority Associated Diagnoses Order S chedule REFERRAL TO Outpatient Routine Dacrocystitis Ordered: OPHTHALMOLOGY Referral 01/20/2012 documented as of this encounter Visit Diagnoses Diagnosis Dacrocystitis - Primary Dacryocystitis, unspecified documented in this encounter Care Teams Billing Specialist Relationship Specialty Start Date End Date Anson Arboleda DO PCP - General 04/17/10 04/25/[address] [place] [address] documented as of this encounter
--- OUTSIDE RECORDS SUMMARY | 2021-11-16 01:25 | XMS_ITS | Encounter Summary ---
:1950 Author Organization [facility] Address [facility] [address] [address] Care Team Providers Name Role Phone RoblesAnson yang Primary Care Provider Reason for Visit Reason Comments Follow-up Encounter Details Date Type Department Care Team Description 04/13/2012 Office Visit Otolaryngology at Adilson Cortez MD [facility] [place] [address] Canceled ([facility] Tong Garland MD [facility] [place] [address] Cancelled) [place] [address] Social History Tobacco Use Types Packs/Day Years Used Date Former Smoker 1 40 Quit: 01/15/20 10 Smokeless Tobacco: Never Used Alcohol Use Standard Drinks/Week Comments Yes 0 (1 standard drink = 0.6 oz pure alcoho l) Sex Assigned at Date Recorded Not on file documented as of this encounter Last Filed Vital Signs Vital Sign Reading Time Taken Comments Blood Pressure 103/66 04/13/2012 9:47 AM EST Pulse 120 04/13/2012 9:47 AM EST Temperature - - Respiratory Rate - - Oxygen Saturation - - Inhaled Oxygen Concentration - - Weight 136.1 kg (300 lb) 04/13/2012 9:47 AM EST Height 182.9 cm (6') 04/13/2012 9:47 AM EST Body Mass Index 40.69 04/13/2012 9:47 AM EST documented in this encounter Plan of Treatment Not on filedocumented as of this encounter Visit Diagnoses Not on filedocumented in this encounter Care Teams Auto Collision Repair Instructor Relationship Specialty Start Date End Date Anson Arboleda DO PCP - General 04/17/10 04/25/[address] [place] [address] documented as of this encounter
--- OUTSIDE RECORDS SUMMARY | 2021-11-16 01:25 | XMS_ITS | Encounter Summary ---
:1950 [place] [address] Care Team Providers Name Role Phone Anson Arboleda DO Primary Care Provider Encounter Details Date Type Department Care Team Description 05/29/2012 Anesthesia Event Main Operating Room Best Powell MD [facility] [place] [address] [facility] Autumn Chao MD [facility] [place] [address] [place] [address] Anesthesia Record Procedure Summary Procedure Name Responsible Anesthesia Start Anesthesia Stop Time Anesthesiologist Time NASAL, SINUS Best Rodriguez MD 05/29/12 1324 05/29/12 171 2 ENDOSCOPY, SURGICAL, WITH DACRYOCYSTORHINOSTO MY-MURIEL (WRVU 9.04) (Left Nose) Events Date Time Event Comment 05/29/2012 1232 1324 Start 1712 Stop No medications on file. Agents No agents on file. Blood No blood administrations on file. Lines, Drains, and Airways Type Details Placement Removal (RETIRED) Arterial 20 04/03/12 0000 by LIne My Mittal RN Incision 04/03/12; other (see 04/03/12 0000 by comments) (Left My Mittal RN sinus) Incision 05/29/12; nose 05/29/12 0000 by (Nose.) Pedersen, Destinee, RN (RETIRED) Arterial 20 05/29/12 0000 by LIne Destinee Pedersen RN Incision 05/29/12; eye 05/29/12 0000 by (Eye/lacrimal duct) Destinee Pedersen RN PIV 05/29/12; 1240; 05/29/12 1240 by 05/29/12 1846 b y 05/29/12; 1846 Keisha Brock RN Maguire, R osanne, RN documented in this encounter Social History Tobacco Use Types Packs/Day Years Used Date Former Smoker 1 40 Quit: 01/15/20 10 Smokeless Tobacco: Never Used Alcohol Use Standard Drinks/Week Comments Yes 0 (1 standard drink = 0.6 oz pure alcoho l) Sex Assigned at Date Recorded Not on file documented as of this encounter OR Notes Anesthesia Postprocedure Evaluation - Daisy Davila Jan - 05/29/2012 5:30 PM EST Patient: Acosta Kay Procedure(s) Performed: Procedure(s): NASAL, SINUS ENDOSCOPY, SURGICAL, WITH DACRYOCYSTORHINOSTOMY-MURIEL SEPTOPLASTY OR SMR, W/ OR W/O CARTILAGE SCORING, CONTOURING OR REPLACEMENT W/ GRAFT LYSIS INTRANASAL SYNECHIA Patient location: PACU; pt is in the Same Day recovery area. Post-op pain: Pt denies post-operative discomfort. Post-op nausea: Pt denies post-operative nausea. Last Vitals: Filed Vitals: 05/29/12 1321 BP: 157/92 Pulse: 101 Temp: 36.5 ??C (97.7 ??F) Resp: 16 Post-op cardiovascular and respiratory status: Pt is hemodynamically stable, and transitioning from 6L facemask. Pt is in atrial fibrillation, as he is at baseline. Level of consciousness: awake, alert and oriented Complications: no apparent complications, tolerated the procedure well and no evidence of recall Fluid Status: normal Anesthesia Preprocedure Evaluation - Didier Ferrara MD - 05/28/2012 4:42 PM EST Today I evaluated Acosta Kay a 61 y.o. male. Procedure(s): NASAL, SINUS ENDOSCOPY, SURGICAL, WITH DACRYOCYSTORHINOSTOMY-MURIEL SEPTOPLASTY OR SMR, W/ OR W/O CARTILAGE SCORING, CONTOURING OR REPLACEMENT W/ GRAFT Patient Active Problem List Diagnoses ??? Chronic [...] SINUS, MURIEL performed by SHI TURNER at [facility] MA[facility] OR ??? Nasal scopy, remv totl ethmoid 04/03/2012 NASAL, SINUS ENDOSCOPY, TOTAL ETHMOIDECTOMY-MURIEL performed by SHI TURNER at [facility] MA[facility] OR History Substance Use Topics ??? [...] TM distance: >3 FB Neck ROM: full Grade 1 view with Glidescope in 03/2012. Cardiovascular Assessment: Pulmonary Assessment: Dental Assessment: (+) upper dentures Misc Assessment: Anesthesia Plan: ASA 3 general, with a(n) intravenous induction Pt is a 61 year old male with PMhx of obesity, COPD (h/o tobacco abuse), HLD, DMII, likely CANDY and atrial fibrillation on chronic anticoagulation who presents with chronic dacrocystitis for additional endoscopic evaluation. Confirmed allergies to simvastatin and ibuprofen. Discussed plan for GETA and invasive blood pressure monitoring. Pt underwent GA in 03/2012 with invasive blood pressure monitoring and did well. Record reviewed. Risks were discussed, including the need for post-operative ventilation, and all questions and concerns were addressed. Consent was obtained, and the appropriate paperwork was placed in the patient's chart. Informed Consent: Anesthetic plan and risks discussed with patient. Plan discussed with attending and resident. [facility] [place]. Assessment: documented in this encounter Miscellaneous Notes Addendum Note - Crystal Klein - 06/01/2012 11:48 AM EST Addendum created 06/01/12 1148 by Crystal Klein Modules edited:Anesthesia Events, Anesthesia Responsible Staff, SmartForms SmartFormsVN Section for SmartForms 266 documented in this encounter Plan of Treatment Not on filedocumented as of this encounter Visit Diagnoses Not on filedocumented in this encounter Care Teams Tile Picker Relationship Specialty Start Date End Date Anson Arboleda DO PCP - General 04/17/10 04/25/[address] [place] [address] [address] [place] [address] documented as of this encounter
[2021-11-16 12:55] LABS: Prothrombin Time 10.3 sec (9.3-11.0)
== END 2021-11-16 01:15 | disposition home or self-care (01) ==
LOC: LOS 01:14
PROVIDERS: PCP Nurse Practitioner Family; Visit Provider Nurse Practitioner Family
DX: I48.91 Unspecified atrial fibrillation (principal); Z79.01 Long term (current) use of anticoagulants
CPT/HCPCS: 36415; 85610

== ENCOUNTER 2021-11-23 02:40 | Outpatient (CLI) | payer MEDICARE, SELFPAY ==
[2021-11-23 12:39] LABS: Prothrombin Time 10.4 sec (9.3-11.0)
== END 2021-11-23 02:41 | disposition home or self-care (01) ==
LOC: LOS 02:40
PROVIDERS: PCP Nurse Practitioner Family; Visit Provider Nurse Practitioner Family
DX: I48.91 Unspecified atrial fibrillation (principal); Z79.01 Long term (current) use of anticoagulants
CPT/HCPCS: 36415; 85610

== ENCOUNTER 2021-11-30 01:34 | Outpatient (CLI) | payer MEDICARE, SELFPAY ==
[2021-11-30 13:02] LABS: INR 1.2 (0.9-1.1); Prothrombin Time 12.2 sec (9.3-11.0)
== END 2021-11-30 01:35 | disposition home or self-care (01) ==
LOC: LOS 01:35
PROVIDERS: Emergency Medicine; PCP Nurse Practitioner Family; Visit Provider Nurse Practitioner Family
DX: I48.91 Unspecified atrial fibrillation (principal); Z79.01 Long term (current) use of anticoagulants
CPT/HCPCS: 36415; 85610

== ENCOUNTER → 2021-12-04 13:35 | Outpatient (BNVA) | payer MEDICARE, SELFPAY | PROVIDERS: PCP Nurse Practitioner Family; Referring Provider Nurse Practitioner Family; Visit Provider Psychiatry & Neurology Neurology | DX: Z79.891 Long term (current) use of opiate analgesic (principal); I95.1 Orthostatic hypotension; I10 Essential (primary) hypertension; E11.9 Type 2 diabetes mellitus without complications; G62.9 Polyneuropathy, unspecified; F41.9 Anxiety disorder, unspecified | CPT/HCPCS: 99215 ==

== ENCOUNTER 2021-12-07 01:25 | Outpatient (CLI) | payer MEDICARE, SELFPAY ==
[2021-12-07 12:42] LABS: Prothrombin Time 38.2 sec (9.3-11.0)
[2021-12-07 13:01] LABS: INR 4.2 (0.9-1.1)
[2021-12-07 13:11] LABS: Vitamin B12 296 pg/mL (193-986)
[2021-12-10 16:37] LABS: Albumin 61.1 % (55.8-66.1); Albumin g/dL 3.8 g/dL (3.6-5.2); Comment (See Note); Total Protein 6.2 g/dL (6.3-8.2)
[2021-12-12 10:30] LABS: Immunotyping, Serum (See Note)
== END 2021-12-07 01:26 | disposition home or self-care (01) ==
LOC: LOS 01:26
PROVIDERS: Psychiatry & Neurology Neurology; PCP Nurse Practitioner Family; Visit Provider Nurse Practitioner Family
DX: G62.9 Polyneuropathy, unspecified (principal); R20.9 Unspecified disturbances of skin sensation; I48.91 Unspecified atrial fibrillation; Z79.01 Long term (current) use of anticoagulants
CPT/HCPCS: 36415; 82607; 84165; 85610; 86320

== ENCOUNTER 2021-12-14 02:27 | Outpatient (CLI) | payer MEDICARE, SELFPAY ==
[2021-12-14 13:18] LABS: INR 4.9 (0.9-1.1)
== END 2021-12-14 02:28 | disposition home or self-care (01) ==
LOC: LOS 02:27
PROVIDERS: Emergency Medicine; PCP Nurse Practitioner Family; Visit Provider Nurse Practitioner Family
DX: I48.91 Unspecified atrial fibrillation (principal); Z79.01 Long term (current) use of anticoagulants
CPT/HCPCS: 36415; 85610

== ENCOUNTER 2021-12-21 01:09 | Outpatient (CLI) | payer MEDICARE, SELFPAY ==
[2021-12-21 12:59] LABS: Prothrombin Time 38.2 sec (9.3-11.0)
[2021-12-21 13:33] LABS: INR 4.2 (0.9-1.1)
== END 2021-12-21 01:10 | disposition home or self-care (01) ==
LOC: LOS 01:09
PROVIDERS: Emergency Medicine; PCP Nurse Practitioner Family; Visit Provider Nurse Practitioner Family
DX: I48.91 Unspecified atrial fibrillation (principal); Z79.01 Long term (current) use of anticoagulants
CPT/HCPCS: 36415; 85610

== ENCOUNTER 2021-12-24 11:24 | Outpatient (CLI) | payer MEDICARE, SELFPAY ==
[2021-12-24 12:48] LABS: INR 1.6 (0.9-1.1); Prothrombin Time 15.5 sec (9.3-11.0)
== END 2021-12-24 11:25 | disposition home or self-care (01) ==
LOC: LOS 11:32
PROVIDERS: PCP Nurse Practitioner Family; Visit Provider Nurse Practitioner Family
DX: I48.91 Unspecified atrial fibrillation (principal); Z79.01 Long term (current) use of anticoagulants
CPT/HCPCS: 36415; 85610

== ENCOUNTER 2021-12-31 03:50 | Outpatient (CLI) | payer MEDICARE, SELFPAY ==
[2021-12-31 12:38] LABS: INR 2.7 (0.9-1.1); Prothrombin Time 25.5 sec (9.3-11.0)
== END 2021-12-31 03:51 | disposition home or self-care (01) ==
LOC: LOS 03:50
PROVIDERS: Emergency Medicine; PCP Nurse Practitioner Family; Visit Provider Nurse Practitioner Family
DX: I48.91 Unspecified atrial fibrillation (principal); Z79.01 Long term (current) use of anticoagulants
CPT/HCPCS: 36415; 85610

== ENCOUNTER 2022-01-31 02:44 | Outpatient (CLI) | payer MEDICARE, SELFPAY ==
[2022-01-31 12:41] LABS: Prothrombin Time 37.4 sec (9.3-11.0)
[2022-01-31 13:04] LABS: INR 4.1 (0.9-1.1)
== END 2022-01-31 02:45 | disposition home or self-care (01) ==
LOC: LOS 02:44
PROVIDERS: PCP Nurse Practitioner Family; Visit Provider Nurse Practitioner Family
DX: I48.91 Unspecified atrial fibrillation (principal)
CPT/HCPCS: 36415; 85610

== ENCOUNTER 2022-02-01 08:05 | Outpatient (CLI) | payer MEDICARE, SELFPAY ==
[2022-02-01 12:34] LABS: INR 2.9 (0.9-1.1); Prothrombin Time 27.4 sec (9.3-11.0)
== END 2022-02-01 08:06 | disposition home or self-care (01) ==
LOC: LOS 08:05
PROVIDERS: Emergency Medicine; PCP Nurse Practitioner Family; Visit Provider Nurse Practitioner Family
DX: I48.91 Unspecified atrial fibrillation (principal); Z79.01 Long term (current) use of anticoagulants
CPT/HCPCS: 36415; 85610

== ENCOUNTER → 2022-02-06 10:03 | Outpatient (BNVA) | payer MEDICARE, SELFPAY | PROVIDERS: PCP Nurse Practitioner Family; Referring Provider Nurse Practitioner Family; Visit Provider Psychiatry & Neurology Neurology | DX: G62.9 Polyneuropathy, unspecified (principal); F41.9 Anxiety disorder, unspecified | CPT/HCPCS: 99214 ==

== ENCOUNTER 2022-02-08 01:16 | Outpatient (CLI) | payer MEDICARE, SELFPAY ==
[2022-02-08 12:35] LABS: INR 3.2 (0.9-1.1)
== END 2022-02-08 01:17 | disposition home or self-care (01) ==
LOC: LOS 01:16
PROVIDERS: Emergency Medicine; PCP Nurse Practitioner Family; Visit Provider Nurse Practitioner Family
DX: I48.91 Unspecified atrial fibrillation (principal)
CPT/HCPCS: 36415; 85610

== ENCOUNTER 2022-02-15 00:42 | Outpatient (CLI) | payer MEDICARE, SELFPAY ==
[2022-02-15 13:12] LABS: INR 3.2 (0.9-1.1); Prothrombin Time 30.3 sec (9.3-11.0)
== END 2022-02-15 00:43 | disposition home or self-care (01) ==
LOC: LOS 00:42
PROVIDERS: Emergency Medicine; PCP Nurse Practitioner Family; Visit Provider Nurse Practitioner Family
DX: I48.91 Unspecified atrial fibrillation (principal); Z79.01 Long term (current) use of anticoagulants
CPT/HCPCS: 36415; 85610

== ENCOUNTER 2022-02-22 01:22 | Outpatient (CLI) | payer MEDICARE, SELFPAY ==
[2022-02-22 13:32] LABS: INR 2.5 (0.9-1.1)
== END 2022-02-22 01:23 | disposition home or self-care (01) ==
LOC: LOS 01:23
PROVIDERS: Emergency Medicine; PCP Nurse Practitioner Family; Visit Provider Nurse Practitioner Family
DX: I48.91 Unspecified atrial fibrillation (principal); Z79.01 Long term (current) use of anticoagulants
CPT/HCPCS: 36415; 85610

== ENCOUNTER 2022-03-08 01:28 | Outpatient (CLI) | payer MEDICARE, SELFPAY ==
[2022-03-08 12:31] LABS: INR 2.1 (0.9-1.1); Prothrombin Time 20.6 sec (9.3-11.0)
== END 2022-03-08 01:29 | disposition home or self-care (01) ==
LOC: LOS 01:28
PROVIDERS: Emergency Medicine; PCP Nurse Practitioner Family; Visit Provider Nurse Practitioner Family
DX: I48.91 Unspecified atrial fibrillation (principal); Z79.01 Long term (current) use of anticoagulants
CPT/HCPCS: 36415; 85610

== ENCOUNTER 2022-03-22 01:26 | Outpatient (CLI) | payer MEDICARE, SELFPAY ==
[2022-03-22 12:57] LABS: INR 1.9 (0.9-1.1); Prothrombin Time 18.4 sec (9.3-11.0)
== END 2022-03-22 01:27 | disposition home or self-care (01) ==
LOC: LOS 01:27
PROVIDERS: PCP Nurse Practitioner Family; Visit Provider Emergency Medicine
DX: I48.91 Unspecified atrial fibrillation (principal); Z79.01 Long term (current) use of anticoagulants
CPT/HCPCS: 36415; 85610

== ENCOUNTER 2022-03-29 01:31 | Outpatient (CLI) | payer MEDICARE, SELFPAY ==
[2022-03-29 12:32] LABS: Prothrombin Time 19.5 sec (9.3-11.0)
== END 2022-03-29 01:32 | disposition home or self-care (01) ==
LOC: LOS 01:31
PROVIDERS: PCP Nurse Practitioner Family; Visit Provider Nurse Practitioner Family
DX: I48.91 Unspecified atrial fibrillation (principal); Z79.01 Long term (current) use of anticoagulants
CPT/HCPCS: 36415; 85610

== ENCOUNTER → 2022-04-02 09:52 | Outpatient (BNVA) | payer MEDICARE, SELFPAY | PROVIDERS: PCP Nurse Practitioner Family; Referring Provider Nurse Practitioner Family; Visit Provider Psychiatry & Neurology Neurology | DX: E11.42 Type 2 diabetes mellitus with diabetic polyneuropathy (principal); F41.9 Anxiety disorder, unspecified; I10 Essential (primary) hypertension; I95.1 Orthostatic hypotension | CPT/HCPCS: 99214 ==

== ENCOUNTER 2022-04-12 01:36 | Outpatient (CLI) | payer MEDICARE, SELFPAY ==
[2022-04-12 13:03] LABS: Prothrombin Time 19.6 sec (9.3-11.0)
== END 2022-04-12 01:37 | disposition home or self-care (01) ==
LOC: LOS 01:36
PROVIDERS: PCP Nurse Practitioner Family; Visit Provider Nurse Practitioner Family
DX: I48.91 Unspecified atrial fibrillation (principal); Z79.01 Long term (current) use of anticoagulants
CPT/HCPCS: 36415; 85610

== ENCOUNTER → 2022-05-07 09:21 | Outpatient (BNVA) | payer MEDICARE, SELFPAY | PROVIDERS: PCP Nurse Practitioner Family; Referring Provider Nurse Practitioner Family; Visit Provider Psychiatry & Neurology Neurology | DX: I10 Essential (primary) hypertension (principal); E11.9 Type 2 diabetes mellitus without complications; J44.9 Chronic obstructive pulmonary disease, unspecified; G62.9 Polyneuropathy, unspecified; F41.9 Anxiety disorder, unspecified | CPT/HCPCS: 95908; 99214 ==

== ENCOUNTER 2022-05-10 01:04 | Outpatient (CLI) | payer MEDICARE, SELFPAY ==
[2022-05-10 10:35] LABS: Prothrombin Time 36.6 sec (9.3-11.0)
== END 2022-05-10 01:05 | disposition home or self-care (01) ==
LOC: LOS 01:04
PROVIDERS: PCP Nurse Practitioner Family; Visit Provider Nurse Practitioner Family
DX: I48.91 Unspecified atrial fibrillation (principal); Z79.01 Long term (current) use of anticoagulants
CPT/HCPCS: 36415; 85610

== ENCOUNTER 2022-05-13 03:15 | Outpatient (CLI) | payer MEDICARE, SELFPAY ==
[2022-05-13 12:40] LABS: INR 1.9 (0.9-1.1); Prothrombin Time 18.1 sec (9.3-11.0)
== END 2022-05-13 03:16 | disposition home or self-care (01) ==
LOC: LOS 03:15
PROVIDERS: PCP Nurse Practitioner Family; Visit Provider Nurse Practitioner Family
DX: I48.91 Unspecified atrial fibrillation (principal)
CPT/HCPCS: 36415; 85610

== ENCOUNTER 2022-05-21 03:36 | Outpatient (CLI) | payer MEDICARE, SELFPAY ==
[2022-05-21 12:52] LABS: INR 1.9 (0.9-1.1)
== END 2022-05-21 03:37 | disposition home or self-care (01) ==
LOC: LOS 03:36
PROVIDERS: PCP Nurse Practitioner Family; Visit Provider Nurse Practitioner Family
DX: I48.91 Unspecified atrial fibrillation (principal)
CPT/HCPCS: 36415; 85610

== ENCOUNTER 2022-05-28 04:10 | Outpatient (CLI) | payer MEDICARE, SELFPAY ==
[2022-05-28 12:45] LABS: INR 1.8 (0.9-1.1); Prothrombin Time 17.8 sec (9.3-11.0)
== END 2022-05-28 04:11 | disposition home or self-care (01) ==
LOC: LOS 04:10
PROVIDERS: PCP Nurse Practitioner Family; Visit Provider Nurse Practitioner Family
DX: I48.91 Unspecified atrial fibrillation (principal)
CPT/HCPCS: 36415; 85610

== ENCOUNTER 2022-06-11 03:20 | Outpatient (CLI) | payer MEDICARE, SELFPAY ==
[2022-06-11 12:41] LABS: INR 3.1 (0.9-1.1); Prothrombin Time 29.1 sec (9.3-11.0)
== END 2022-06-11 03:21 | disposition home or self-care (01) ==
LOC: LOS 03:21
PROVIDERS: PCP Nurse Practitioner Family; Visit Provider Nurse Practitioner Family
DX: I48.91 Unspecified atrial fibrillation (principal)
CPT/HCPCS: 36415; 85610

== ENCOUNTER 2022-06-18 03:22 | Outpatient (CLI) | payer MEDICARE, SELFPAY ==
[2022-06-18 12:50] LABS: INR 2.1 (0.9-1.1); Prothrombin Time 20.1 sec (9.3-11.0)
== END 2022-06-18 03:23 | disposition home or self-care (01) ==
LOC: LOS 03:22
PROVIDERS: PCP Nurse Practitioner Family; Visit Provider Nurse Practitioner Family
DX: I48.91 Unspecified atrial fibrillation (principal); Z79.01 Long term (current) use of anticoagulants
CPT/HCPCS: 36415; 85610

== ENCOUNTER 2022-07-02 03:46 | Outpatient (CLI) | payer MEDICARE, SELFPAY ==
[2022-07-02 12:56] LABS: Prothrombin Time 30.2 sec (9.3-11.0)
== END 2022-07-02 03:47 | disposition home or self-care (01) ==
LOC: LOS 03:46
PROVIDERS: PCP Nurse Practitioner Family; Visit Provider Nurse Practitioner Family
DX: I48.91 Unspecified atrial fibrillation (principal); Z79.01 Long term (current) use of anticoagulants
CPT/HCPCS: 36415; 85610

== ENCOUNTER 2022-07-16 01:58 | Outpatient (CLI) | payer MEDICARE, SELFPAY ==
[2022-07-16 12:27] LABS: INR 2.2 (0.9-1.1); Prothrombin Time 22.1 sec (9.3-11.0)
== END 2022-07-16 01:59 | disposition home or self-care (01) ==
PROVIDERS: PCP Nurse Practitioner Family; Visit Provider Nurse Practitioner Family
DX: I48.91 Unspecified atrial fibrillation (principal)
CPT/HCPCS: 36415; 85610

== ENCOUNTER 2022-08-07 02:54 | Outpatient (CLI) | payer MEDICARE, SELFPAY ==
[2022-08-07 12:35] LABS: INR 1.9 (0.9-1.1); Prothrombin Time 19.3 sec (9.3-11.0)
[2022-08-07 12:44] LABS: CREATININE 0.9 mg/dL (0.70-1.30); Estimated GFR 90.18 (mL/min/1.73m2); Potassium 4.1 mmol/L (3.5-5.1); TSH 1.98 uIU/mL (0.36-3.74)
== END 2022-08-07 02:55 | disposition home or self-care (01) ==
LOC: LOS 02:54
PROVIDERS: PCP Nurse Practitioner Family; Visit Provider Nurse Practitioner Family
DX: E03.9 Hypothyroidism, unspecified (principal); I10 Essential (primary) hypertension; I48.91 Unspecified atrial fibrillation; Z79.01 Long term (current) use of anticoagulants
CPT/HCPCS: 36415; 82565; 84132; 84443; 85610

== ENCOUNTER → 2022-08-08 10:53 | Outpatient (BNVA) | payer MEDICARE, SELFPAY | PROVIDERS: PCP Nurse Practitioner Family; Referring Provider Nurse Practitioner Family; Visit Provider Psychiatry & Neurology Neurology | DX: G62.9 Polyneuropathy, unspecified (principal); F41.9 Anxiety disorder, unspecified | CPT/HCPCS: 95907; 99213 ==

== ENCOUNTER 2022-08-21 01:57 | Outpatient (CLI) | payer MEDICARE, SELFPAY ==
[2022-08-21 12:41] LABS: INR 2.8 (0.9-1.1); Prothrombin Time 28.6 sec (9.3-11.0)
== END 2022-08-21 01:58 | disposition home or self-care (01) ==
LOC: LOS 01:58
PROVIDERS: PCP Nurse Practitioner Family; Visit Provider Nurse Practitioner Family
DX: I48.91 Unspecified atrial fibrillation (principal); Z79.01 Long term (current) use of anticoagulants
CPT/HCPCS: 36415; 85610

== ENCOUNTER 2022-09-04 02:53 | Outpatient (CLI) | payer MEDICARE, SELFPAY ==
[2022-09-04 12:52] LABS: INR 2.6 (0.9-1.1); Prothrombin Time 26.3 sec (9.3-11.0)
== END 2022-09-04 02:54 | disposition home or self-care (01) ==
LOC: LOS 02:54
PROVIDERS: PCP Nurse Practitioner Family; Visit Provider Nurse Practitioner Family
DX: I48.91 Unspecified atrial fibrillation (principal); Z79.01 Long term (current) use of anticoagulants
CPT/HCPCS: 36415; 85610

== ENCOUNTER 2022-09-19 02:07 | Outpatient (CLI) | payer MEDICARE, SELFPAY ==
[2022-09-19 12:33] LABS: INR 3.5 (0.9-1.1); Prothrombin Time 34.8 sec (9.3-11.0)
== END 2022-09-19 02:08 | disposition home or self-care (01) ==
LOC: LOS 02:07
PROVIDERS: PCP Nurse Practitioner Family; Visit Provider Nurse Practitioner Family
DX: I48.91 Unspecified atrial fibrillation (principal)
CPT/HCPCS: 36415; 85610

== ENCOUNTER → 2022-09-26 13:54 | Outpatient (BNVA) | payer MEDICARE, SELFPAY | PROVIDERS: PCP Nurse Practitioner Family; Visit Provider Psychiatry & Neurology Neurology | DX: E11.42 Type 2 diabetes mellitus with diabetic polyneuropathy (principal); I95.1 Orthostatic hypotension; F41.9 Anxiety disorder, unspecified | CPT/HCPCS: 99214 ==

== ENCOUNTER 2022-09-27 01:17 | Outpatient (CLI) | payer MEDICARE, SELFPAY ==
[2022-09-27 12:29] LABS: INR 2.5 (0.9-1.1); Prothrombin Time 25.2 sec (9.3-11.0)
[2022-09-27 12:50] LABS: Vitamin B12 411 pg/mL (193-986)
== END 2022-09-27 01:18 | disposition home or self-care (01) ==
LOC: LOS 01:17
PROVIDERS: Psychiatry & Neurology Neurology; PCP Nurse Practitioner Family; Visit Provider Nurse Practitioner Family
DX: G62.9 Polyneuropathy, unspecified (principal); I48.91 Unspecified atrial fibrillation; Z79.01 Long term (current) use of anticoagulants; R20.0 Anesthesia of skin
CPT/HCPCS: 36415; 82607; 85610

== ENCOUNTER 2022-10-11 02:12 | Outpatient (CLI) | payer MEDICARE, SELFPAY ==
[2022-10-11 12:25] LABS: Prothrombin Time 31.7 sec (9.3-11.0)
[2022-10-11 12:26] LABS: INR 3.1 (0.9-1.1)
== END 2022-10-11 02:13 | disposition home or self-care (01) ==
LOC: LOS 02:13
PROVIDERS: PCP Nurse Practitioner Family; Visit Provider Nurse Practitioner Family
DX: I48.91 Unspecified atrial fibrillation (principal); Z79.01 Long term (current) use of anticoagulants
CPT/HCPCS: 36415; 85610

== ENCOUNTER 2022-11-11 04:26 | Outpatient (CLI) | payer MEDICARE, SELFPAY ==
[2022-11-11 12:35] LABS: INR 2.9 (0.9-1.1); Prothrombin Time 29.3 sec (9.3-11.0)
== END 2022-11-11 04:27 | disposition home or self-care (01) ==
LOC: LOS 04:26
PROVIDERS: PCP Nurse Practitioner Family; Visit Provider Family Medicine
DX: I48.91 Unspecified atrial fibrillation (principal); Z79.01 Long term (current) use of anticoagulants
CPT/HCPCS: 36415; 85610

== ENCOUNTER → 2022-11-14 10:12 | Outpatient (BNVA) | payer MEDICARE, SELFPAY | PROVIDERS: PCP Nurse Practitioner Family; Visit Provider Psychiatry & Neurology Neurology | DX: E11.42 Type 2 diabetes mellitus with diabetic polyneuropathy (principal); I95.1 Orthostatic hypotension; F41.9 Anxiety disorder, unspecified; I10 Essential (primary) hypertension; J44.9 Chronic obstructive pulmonary disease, unspecified | CPT/HCPCS: 99214 ==

== ENCOUNTER 2022-12-11 04:15 | Outpatient (CLI) | payer MEDICARE, SELFPAY ==
[2022-12-11 12:29] LABS: INR 2.6 (0.9-1.1); Prothrombin Time 26.4 sec (9.3-11.0)
== END 2022-12-11 04:16 | disposition home or self-care (01) ==
LOC: LOS 04:15
PROVIDERS: PCP Nurse Practitioner Family; Visit Provider Nurse Practitioner Family
DX: I48.91 Unspecified atrial fibrillation (principal)
CPT/HCPCS: 36415; 85610

== ENCOUNTER 2023-01-10 02:28 | Outpatient (CLI) | payer MEDICARE, SELFPAY ==
[2023-01-10 11:01] LABS: INR 2.8 (0.9-1.1); Prothrombin Time 28.7 sec (9.3-11.0)
== END 2023-01-10 02:29 | disposition home or self-care (01) ==
LOC: LOS 02:29
PROVIDERS: PCP Nurse Practitioner Family; Visit Provider Nurse Practitioner Family
DX: I48.91 Unspecified atrial fibrillation (principal); Z79.01 Long term (current) use of anticoagulants
CPT/HCPCS: 36415; 85610

== ENCOUNTER → 2023-01-15 09:36 | Outpatient (BNVA) | payer MEDICARE, SELFPAY | PROVIDERS: PCP Nurse Practitioner Family; Visit Provider Psychiatry & Neurology Neurology | DX: G62.9 Polyneuropathy, unspecified (principal); F41.9 Anxiety disorder, unspecified; I10 Essential (primary) hypertension; E11.9 Type 2 diabetes mellitus without complications; J44.9 Chronic obstructive pulmonary disease, unspecified | CPT/HCPCS: 99214 ==

== ENCOUNTER 2023-02-05 16:49 | Inpatient (IN) | payer MEDICARE, SELFPAY ==
[2023-02-05] VITALS (27 sets, daily range): BP systolic 106–165; BP diastolic 50–114; PULSE 56–117; RESP 2–29; TEMP 37–39.6; O2SAT 92–97
--- NOTE | 2023-02-05 17:00 | DI.CT_ITS ---
Exam(s) CT HEAD WO EXAM: CT HEAD WO CLINICAL HISTORY: ams, fever. TECHNIQUE: Imaging Protocol: Axial computed tomography images with coronal and sagittal reformatted images were created and reviewed COMPARISON: CT CT HEAD WO from 07/13/2021 FINDINGS: Exam limited by mild motion. Ventricles and Extra axial spaces: Normal in size and morphology for the patient's age. Hemorrhage: None. Cerebral parenchyma: No evidence of acute infarct or mass. Midline shift: None. Brainstem/Cerebellum: Normal. Calvarium: Normal. Visualized Paranasal sinuses/Mastoids: Clear. Prior sinus surgery on the left. No air-fluid levels . No significant mucous retention. Soft Tissues: Unremarkable. IMPRESSION: No acute intracranial process. RADIATION DOSE DELIVERED: 920.03mGy.cm Total DLP DATA REPOSITORY: All CT scans at this facility are submitted to the National Radiology Data Registry (NRDR) Dose Index Registry (DIR) with the [employer] (ACR). RADIATION OPTIMIZATION: All CT scans at this facility use at least one of these dose optimization te chniques: automated exposure control; mA and/or kV adjustment per patient size (includes targeted exa ms where dose is matched to clinical indication); or iterative reconstruction.
--- NOTE | 2023-02-05 17:00 | DI.RAD_ITS ---
Exam(s) XR PORTABLE CHEST AP EXAM: XR PORTABLE CHEST AP CLINICAL HISTORY: sob fever ams TECHNIQUE: 2D digital imaging was performed. COMPARISON: CR CHEST 2 VIEWS PA,LAT from 10/23/2016 FINDINGS: Exam limited by poor penetration at the lung bases and poor pulmonary inflation. LUNGS: Increased densities noted at the left lung base suspicious for infiltrate. Tiny left pleural effusion not excluded. Right lung appears clear. HEART: Enlarged. AORTA: Mildly ectatic. BONES: Unremarkable for age. Soft tissues: Unremarkable. IMPRESSION: Findings suspicious for left lower lobe pneumonia. DATA REPOSITORY: RADIATION DOSE DELIVERED:
--- NOTE | 2023-02-05 17:12 | ED.GENADUL_ITS ---
Discharge Plan Disposition Patient Disposition: Admit to [facility] Condition: Improving Discharge Details Chief Complaint: AMS/LOC Clinical Impression: AMS (altered mental status), Pneumonia Primary Care Provider: David Zuleta ED Provider: Dontae Hollis Home Meds and New Rx's Prescriptions: No Action divalproex [Depakote] 500 mg tablet,delayed release (DR/EC) 500 mg PO BID Qty: 60 5RF divalproex [Depakote] 250 mg tablet,delayed release (DR/EC) 250 mg PO BID Qty: 60 5RF Rx Instructions: in addition to 500mg BID for total 750mg BID sertraline 100 mg tablet 100 mg PO DAILY Qty: 90 3RF warfarin 5 mg tablet See Rx Instructions PO .COMPLEX Qty: 100 6RF Protocol: Dose Management Condition: Friday Dose/Route: 5 mg Instruction: 1 x 5 mg tablet Condition: Friday Dose/Route: 5 mg Instruction: 1 x 5 mg tablet Condition: Friday Dose/Route: 5 mg Instruction: 1 x 5 mg tablet Condition: Friday Dose/Route: 5 mg Instruction: 1 x 5 mg tablet Condition: Dose/Route: 5 mg Instruction: 1 x 5 mg tablet Condition: Friday Dose/Route: 7.5 mg Instruction: 1.5 x 5 mg tablets Condition: Friday Dose/Route: 5 mg Instruction: 1 x 5 mg tablet Protocol Text: Adjustment Start Date: Friday01/10/23 INR Value: 2.8 INR Date: 01/10/23 Recheck Date: 02/09/23 Rx Instructions: 0-2 Tabs DIRECTED by [facility], based up most recent NR cyanocobalamin (vitamin B-12) 1,000 mcg capsule 1,000 mcg PO DAILY Qty: 90 3RF metformin 1,000 mg tablet 1,000 mg PO BID Qty: 180 3RF duloxetine 60 mg capsule,delayed release(DR/EC) 60 mg PO DAILY Qty: 90 3RF pravastatin 40 mg tablet 40 mg PO DAILY Qty: 90 3RF metoprolol succinate [Toprol XL] 200 mg tablet extended release 24 hr 200 mg PO DAILY Qty: 90 4RF pregabalin [Lyrica] 100 mg capsule 100 mg PO TID Qty: 270 3RF Hold Instructions: Home Medication placed on hold at Doctor's office losartan [Cozaar] 50 mg tablet 50 mg PO DAILY Qty: 90 3RF morphine [MS Contin] 15 mg tablet extended release 15 mg PO ONCE MDD 15mg Qty: 28 0RF Rx Instructions: Take one pill each night. levothyroxine [Synthroid] 25 mcg tablet 25 mcg PO DAILY Qty: 90 3RF Medical Decision Making 72-year-old male brought in by EMS for evaluation of confusion fever tremor and hypoxia noted earlier this afternoon. Patient noted to be tachycardic febrile and tachypneic on arrival, 92% on supplemental nasal cannula, rhonchorous breath sounds, high clinical suspicion for pneumonia and concomitant delirium. Must also consider COVID-19 versus influenza. Lower suspicion for PE or ACS given history and physical. Must also consider meningitis given confusion and fever however patient displays no meningismus, no focal neurodeficits and clinical picture more consistent with a pulmonary infection. Patient is also anticoagulated no signs of trauma but must also consider intracranial hemorrhage. Will obtain basic labs cultures COVID flu RSV swab, chest x-ray, CT head, fluids empiric antibiotics nebs close reassessment of mental status. Must also consider alcohol withdrawal although both patient and family deny heavy alcohol use. Disposition pending reassessment of vital signs 19: 54 evidence of pneumonia, patient did respond to 2 doses of Ativan IV tremors and diaphoresis greatly improved consider component of alcohol withdrawal, empiric antibiotics have been started. CT head unremarkable, patient is supratherapeutic on his Coumadin. Will be admitted for further antibiotics fluids close reassessment of mental status and respiratory status. HPI General Date/Time Provider Initiated Documentation: 02/05/23 16:52 . HPI Narrative: 72-year-old male history of diabetes A-fib hypothyroidism presents with fever altered mental status confusion tremors and hallucinations per report that began around 2 PM this evening. Low oxygen saturation at home. Patient alert to self however otherwise globally confused Related Data Home Medications Medication Instructions Recorded Confirmed cyanocobalamin (vitamin B-12) 1,000 mcg PO DAILY #90 caps 12/10/21 02/05/23 1,000 mcg capsule metformin 1,000 mg tablet 1,000 mg PO BID #180 tabs 03/04/22 02/05/23 duloxetine 60 mg capsule,delayed 60 mg PO DAILY #90 tabs 03/19/22 02/05/23 release pravastatin 40 mg tablet 40 mg PO DAILY #90 tab-caps 06/07/22 02/05/23 metoprolol succinate 200 mg 200 mg PO DAILY #90 tabs 06/19/22 02/05/23 tablet,extended release 24 hr (Toprol XL) pregabalin 100 mg capsule (Lyrica) 100 mg PO TID #270 caps 09/18/22 02/05/23 losartan 50 mg tablet (Cozaar) 50 mg PO DAILY #90 tab-caps 10/11/22 02/05/23 sertraline 100 mg tablet 100 mg PO DAILY #90 tabs 11/08/22 02/05/23 warfarin 5 mg tablet See Rx Instructions PO .COMPLEX 11/08/22 02/05/23 #100 tabs divalproex 500 mg tablet,delayed 500 mg PO BID #60 tabs 11/14/22 02/05/23 release (Depakote) divalproex 250 mg tablet,delayed 250 mg PO BID #60 tabs 01/15/23 02/05/23 release (Depakote) morphine 15 mg tablet,extended 15 mg PO ONCE pain #28 tabs 01/22/23 02/05/23 release (MS Contin) levothyroxine 25 mcg tablet 25 mcg PO DAILY #90 tab-caps 02/05/23 02/05/23 (Synthroid) Previous Rx's Medication Instructions Recorded cyanocobalamin (vitamin B-12) 1,000 mcg PO DAILY #90 caps 12/10/21 1,000 mcg capsule metformin 1,000 mg tablet 1,000 mg PO BID #180 tabs 03/04/22 duloxetine 60 mg capsule,delayed 60 mg PO DAILY #90 tabs 03/19/22 release pravastatin 40 mg tablet 40 mg PO DAILY #90 tab-caps 06/07/22 metoprolol succinate 200 mg 200 mg PO DAILY #90 tabs 06/19/22 tablet,extended release 24 hr (Toprol XL) pregabalin 100 mg capsule (Lyrica) 100 mg PO TID #270 caps 09/18/22 losartan 50 mg tablet (Cozaar) 50 mg PO DAILY #90 tab-caps 10/11/22 sertraline 100 mg tablet 100 mg PO DAILY #90 tabs 11/08/22 warfarin 5 mg tablet See Rx Instructions PO .COMPLEX 11/08/22 #100 tabs divalproex 500 mg tablet,delayed 500 mg PO BID #60 tabs 11/14/22 release (Depakote) divalproex 250 mg tablet,delayed 250 mg PO BID #60 tabs 01/15/23 release (Depakote) morphine 15 mg tablet,extended 15 mg PO ONCE pain #28 tabs 01/22/23 release (MS Contin) levothyroxine 25 mcg tablet 25 mcg PO DAILY #90 tab-caps 02/05/23 (Synthroid) Allergies Allergy/AdvReac Type Severity Reaction Status Date / Time ibuprofen Allergy Unknown ITCHING Verified 02/05/23 17:04 simvastatin AdvReac Intermediate ? OF Verified 02/05/23 17:04 NEUROPATHY OF FEET ILENE Inhibitors AdvReac Unknown COUGH Verified 02/05/23 17:04 General Stated Complaint: AMS/LOC EDGAR: 2 Review of Systems Narrative: Review of Systems Constitutional: Fever Eyes: negative ENT: negative Cardiovascular: negative Respiratory: Hypoxia Gastrointestinal: negative : negative Musculoskeletal: negative Skin: negative Neurologic: Altered mental status Psych: negative PFSH All Active Problems (Updated 02/05/23 @ 19:55 by Dontae Hollis MD) AMS (altered mental status) (Acute) Pneumonia (Acute) Hypothyroidism (Chronic) Pain in soft tissues of limb (Acute) Other hammer toe (acquired) (Acute) Corns and callosities (Acute) Acute cognitive decline (Acute) Cold sensation of skin (Acute) Neuropathy (Acute) Chronic pain syndrome (Acute) Weening started 11/09/21. Lowered to 15mg daily. 12/10/16 RENEWAL OF CONTROLLED SUBSTANCE AGREEMENT 04/2021-updated agreement/VPMS query and drug screen Diabetes mellitus (Acute) Essential hypertension (Acute 03/16/13) Sexual function problem (Acute) Polyp of colon (Acute 06/25/08) Peripheral neuralgia (Acute) of feet; idiopathic; multiple neuro w/u's; 2 brothers and mother with similar issue...likely genetic origin multiple neuro consults. See 2013 Dr Garcia. Obesity (Acute) Hyperlipidemia (Acute) Complete edentulism, unspecified (Acute) Chronic obstructive lung disease (Acute) Atrial fibrillation (Acute) beginning in 2002, it was initially paroxysmal and cardioverted. It is now chronic. On warfarin Anticoagulated on warfarin (Acute) A-fib; goal 2-3 Hemorrhoids (Acute) Open wound of right heel (Acute) Followed by [facility] Anxiety (Chronic) Surgical History CARDIOVERSION (~2002) Hx of cataract surgery Hx of colonoscopy Repair of inguinal hernia (~1975) right Family History Mother Stroke Father Heart disease Brother Diabetes Brother No problems noted. Maternal Grandfather No problems noted. Paternal Grandfather No problems noted. Maternal Grandmother No problems noted. Son Hypertension Daughter Depression Social History Smoking/Tobacco Use Status: Former Tobacco Use tobacco type: cigarettes Quit Date: 05/26/08 Second Hand Exposure: Yes Smoking risk assessment performed?: Yes Alcohol Intake: current Alcohol Intake frequency: a few times a week Alcohol type: beer Drug use: Occasionally Substance use type: marijuana Details: pt stated to MD no use of tobacco, alcohol, or substance use Caregiver/Support person: No Household members: children Housing: house Communication Needs: None Do you need help understanding health information?: Always Pets and animals: No Sexually active: No Do you think of yourself as: straight/heterosexual Current gender identity: male What is your relationship status?: How often do you talk on the phone with friends or family?: twice per week How often do you get together with friends or relatives?: three or more times per week How often do you attend yarsani or islam services?: decline to answer Do you belong to any clubs or organized social groups?: yes Panel score (0-1 are the most socially isolated patients): 2 What type of physical activity do you participate in: none Duration: 15-30 minutes/day Frequency: daily Khalida/Mu-Ism: No preference Special khalida needs: No Seatbelt use: never Helmet use: No Drive intox or ride w/intox skip load driver: No Do you feel safe at home: Yes Do you feel safe in your relationship?: Yes Victim of physical abuse: No Victim of emotional abuse: No Victim of sexual abuse: No Would you like helpful sources: No Exam Narrative Exam Narrative: Physical Examination General: Awake, uncomfortable appearing, diaphoretic HEENT: normocephalic, atraumatic; PERRL, EOM intact, conjunctiva normal; no nasal discharge; moist mucous membranes, oral and pharyngeal mucosa normal, tolerating secretions Neck: supple, trachea midline; full ROM Chest: normal to inspection Respiratory: Tachypnea, rhonchorous breath sounds Cardiac: Tachycardia, regular rhythm, S1S2 intact, no murmurs rubs or gallops GI: abdomen soft, non-tender, non-distended; no palpable mass or hepatosplenomegaly Skin: Diaphoretic Neuro: Alert to self, otherwise globally confused, moving all extremities to commands without deficit, slight tremor at rest Extremities: No signs of trauma Course Vital Signs Vital signs: Vital Signs Temperature 39.6 C H 02/05/23 16:48 Pulse 100 H 02/05/23 16:48 Respiratory Rate 26 H 02/05/23 16:48 Blood Pressure 165/88 H 02/05/23 16:48 Pulse Oximetry 92 02/05/23 16:48 Temperature 39.6 C H 02/05/23 16:48 Temperature Source Oral 02/05/23 16:48 Pulse 100 H 02/05/23 16:48 Respiratory Rate 29 H 02/05/23 17:05 Respiratory Pattern Tachypnea 02/05/23 17:05 Blood Pressure 165/88 H 02/05/23 16:48 Blood Pressure Position Sitting 02/05/23 16:48 Pulse Oximetry 92 02/05/23 16:48 Oxygen Delivery Method Nasal Cannula 02/05/23 16:48 Oxygen Flow Rate 4 02/05/23 16:48
--- NOTE | 2023-02-05 17:15 | RT.EKG_ITS ---
APPROVED REPORT Exam: Resting ECG Reason for Exam: AMS sudden onset Patient Location: E HR:109 bpm ECG Measurements Heart Rate 109 AXIS WY [id number] P [id number] QRSd 94 QRS 38 QT 333 T -79 QTc 449 Conclusion Atrial fibrillation...V-rate 87-127, irreg A-activity Low voltage, extremity leads...all extremity leads <0.5mV Nonspecific repolarization abnormalities...ST dep, T neg, 2-3 leads afib, rvr, normal axis, flat t waves lateral
[2023-02-05] MEDS: cefTRIAXone 1 GM/50 ML BAG IVPB (17:23)
[2023-02-05] MEDS: AZITHROMYCIN 500 MG in Normal Saline 250 ML 250 MG IVPB (17:24)
[2023-02-05] MEDS: Albuterol/Ipratropium 3 ML UPD VIAL UPD (17:25)
[2023-02-05] MEDS: Normal Saline 1,000 ML 1000 ML IV (17:25)
[2023-02-05] MEDS: LORazepam 2 MG/ML VIAL 1 MG IVP ×2 (17:38→17:55)
[2023-02-05 17:41] LABS: BE (Venous) 4 mmol/L (-2-3); HCO3 (Venous) 28 mmol/L (23-28); O2 Sat (Venous) 94 %; TCO2 (Venous) 25 mmol/L (24-29); pCO2 (Venous) 43 mmHg (41-51); pH (Venous) 7.42 (7.31-7.41); pO2 (Venous) 65 mmHg
[2023-02-05 18:06] LABS: Abs Immature Grans 0.04 10^3/uL (0.0-0.06); Absolute Basophil Count 0.02 10^3/uL (0.0-0.2); Absolute Eosinophil Count 0.12 10^3/uL (0.0-0.7); Absolute Lymphocyte Count 0.55 10^3/uL (1.2-3.4); Absolute Monocyte Count 0.82 10^3/uL (0.1-0.8); Absolute Neutrophil Count 8.33 10^3/uL (1.2-6.7); Basophils % 0.2; Eosinophils % 1.2; HCT 39.6 % (40.0-50.0); HGB 12.7 g/dL (13.5-17.5); Immature Grans % 0.4; Lymphocytes % 5.6; MCH 30.1 pg (27.0-33.0); MCHC 32.1 % (32.0-36.0); MCV 94 fL (80-95); MPV 12.4 fL (8.0-11.0); Monocytes % 8.3; Neutrophils % 84.3; RBC 4.22 10^6/uL (4.36-5.78); RDW 13.4 % (11.8-14.1); RDW-SD 46.1 fL; WBC 9.88 10^3/uL (4.4-10.8)
[2023-02-05 18:19] LABS: Platelet Count 89 10^3/uL (130-400)
[2023-02-05] MEDS: Albuterol/Ipratropium 3 ML UPD VIAL 6 ML UPD (18:29)
[2023-02-05 18:37] LABS: PTT Activated 56.4 sec (21.5-31.9); Prothrombin Time 52.5 sec (9.3-11.0)
[2023-02-05 18:44] LABS: ALT 9 U/L (16-63); AST 11 U/L (15-37); Albumin 3.1 g/dL (3.4-5.0); Alkaline Phosphatase 61 U/L (46-116); Anion Gap 8.4 mmol/L (3-11); BUN 23 mg/dL (7-18); Bilirubin, Total 0.4 mg/dL (0.2-1.0); CO2 27.6 mmol/L (21.0-32.0); CREATININE 1.1 mg/dL (0.70-1.30); Calcium 7.8 mg/dL (8.5-10.1); Chloride 101 mmol/L (98-107); Estimated GFR 70.44 (mL/min/1.73m2); Glucose 142 mg/dL (74-106); Magnesium 1.4 mg/dL (1.8-2.4); NT-proBNP 503 pg/mL (<300); Potassium 4.2 mmol/L (3.5-5.1); Sodium 137 mmol/L (136-145); TSH (W/Ref FT4) 1.91 uIU/mL (0.36-3.74); Total Protein 6.2 g/dL (6.4-8.2)
[2023-02-05 18:47] LABS: COVID-19 PCR Negative (Negative); Influenza A PCR Negative (Negative); Influenza B PCR Negative (Negative); RSV PCR Negative (Negative)
[2023-02-05 18:48] LABS: Source NASOPHARYNX
[2023-02-05 19:03] LABS: INR 5.2 (0.9-1.1)
--- NOTE | 2023-02-05 19:37 | DI.VRAD_ITS ---
PROCEDURE INFORMATION: Exam: CT Head Without Contrast Exam date and time: 02/05/2023 7:21 PM Age: 72 years old Clinical indication: Altered mental status/memory loss and fever; Confusion or disorientation; Patient HX: AMS, confusion TECHNIQUE: Imaging protocol: Computed tomography of the head without contrast. Radiation optimization: All CT scans at this facility use at least one of these dose optimization techniques: automated exposure control; mA and/or kV adjustment per patient size (includes targeted exams where dose is matched to clinical indication); or iterative reconstruction. COMPARISON: CT HEAD WO 07/13/2021 8:28 AM FINDINGS: Brain: No acute intracranial hemorrhage, mass-effect, midline shift, or extra-axial collection is seen. The figueroa white matter differentiation appears preserved. Cerebral ventricles: The ventricular system and basilar cisterns appear appropriate in size and configuration. Paranasal sinuses: There is bony thickening of the left maxillary david in keeping with chronic sinusitis in the past. There is a stable left medial maxillary wall defect suggesting prior sinus surgery or bony dehiscence in the past. No air-fluid levels are seen to suggest acute sinusitis. Mastoid air cells: The mastoid air cells appear well-aerated. Auditory system: The middle ear cavities appear clear. Orbital cavities: The globes and intraorbital structures appear grossly intact. Bones/joints: The bony calvarium appears intact. No depressed skull fracture is seen. Soft tissues: No significant scalp lesion is seen. IMPRESSION: No acute intracranial abnormality seen. Dictated and Authenticated by: Anand Ramos MD. Ordering:DIEGO Diggs MD
[2023-02-05 19:51] LABS: Bilirubin Negative (Negative); Blood Small (Negative); Clarity Clear (Clear); Glucose Negative (Negative); Ketones Trace mg/dL (Negative); Leukocyte Esterase Negative (Negative); Nitrite Negative (Negative); Specific Gravity 1.015 (1.005-1.025); Urobilinogen 0.2 mg/dL (Up to 0.2)
[2023-02-05 20:01] LABS: Bacteria Negative HPF (Negative); C & S Indicated? No; Casts Negative LPF (Negative); Crystals Negative HPF (Negative); Epithelial Cells Rare HPF (Negative); Mucus Negative (Negative); WBC 0-2 HPF (0-5)
[2023-02-05 20:04] LABS: *AMPHETAMINES SCREEN URINE Negative (Negative); *BARBITURATES SCREEN URINE Negative (Negative); *BENZODIAZEPINES SCREEN URINE Negative (Negative); Cannabinoids THC Negative (Negative); Cocaine Screen,Urine Negative (Negative); METHADONE URINE SCREEN Negative (Negative); OPIATES URINE SCREEN Positive (Negative)
--- NOTE | 2023-02-05 20:06 | HPE_ITS ---
Date of service: 02/05/23 Time of Service: 20:06 Assessment and Plan Assessment and plan (1) AMS (altered mental status): Status: Acute Assessment and plan: This more acute change likely d/t fever / infectious process. Improving. (2) Pneumonia: Status: Acute Assessment and plan: CXR with suspicion of LLL infiltrate. Normal WBC count. Add on procalcitonin. Cont Rocephin and Azithromcyin IS and acapella when cognitively able to use. (3) Supratherapeutic INR: Status: Acute Assessment and plan: Hold coumadin and monitor INR (4) Atrial fibrillation: Status: Acute Assessment and plan: Cont metoprolol. Hold coumadin due supratherapeutic INR. Telemetry. (5) Chronic obstructive lung disease: Status: Acute Assessment and plan: Schedule Duonebs / may be able to decrease frequency. PRN albuterol. (6) Cognitive decline: Status: Acute Assessment and plan: Per neurology note, Dr Ackerman on 01/15/23 his baseline MOCA showed impairments in the rontal lobe processing as well as delay recall. Increased depakote at that visit. (7) Hypomagnesemia: Status: Acute Assessment and plan: Replete and monitor. (8) Neuropathy: Status: Acute Assessment and plan: Followed by Dr Ackerman. Severe neuropathy and NCS of the UE showed extensive neuropahty. She reported he hasn't responded well to neuropathic pain medications. Continues on Lyrica. (9) Diabetes mellitus: Status: Acute Assessment and plan: Hold metformin AC glucose monitoring Sensitive level SS correction insulin dosing (10) Essential hypertension: Status: Acute Assessment and plan: On losartan and metoprolol Cont and monitor. (11) Hyperlipidemia: Status: Acute Assessment and plan: Cont pravastatin. (12) Anxiety: Status: Chronic Assessment and plan: On sertraline and duloxetine. History of Present Illness History of Present Illness Chief Complaint: Fever, altered mental status Narrative: This is a 72 yo male with a PMH of COPD, Afib on coumadin, cognitive decline, DM2, HTN, HLD, anxiety, hypothyroidism, previous alcohol abuse disorder. He presented with c/o fever, confusion, tremors, hallucinations per family. His daughter saw him at appx 1:30 in the afternoon and seemed a little off and she thought he was likely tired. His son, who he lives with, noted the previously mentioned symptoms at appx 3:30 and EMS was called. Also reportedly hypoxic with O2 sats. in the 80's at home. The onset of symptoms was appx 2PM on day of admission. No reported cough/sputum, CP/palpitations, N/V/abd pain. No EDMOND. He was noted to have rhonchorous breath sounds. Lab with normal WBC. Hgb 12.7. Plts 89. INR 5.2. Na and K normal. BUN 23. Creatinine 1.1. Glucose 142. Mg 1.4. UA unremarkable. CT head w/o acute processes. CXR with suspicion for LLL pneumonia. Rocephin and azithromycin initiated in the ED. After 2 doses of ativan, his tremulousness and diaphoresis improved si gnificantly. Review of Systems All systems reviewed & are unremarkable except as noted in HPI and below PFSH All Active Problems (Updated 02/05/23 @ 20:18 by Dontae Mitchell MD) Cognitive decline (Acute) Supratherapeutic INR (Acute) Hypomagnesemia (Acute) AMS (altered mental status) (Acute) Pneumonia (Acute) Hypothyroidism (Chronic) Pain in soft tissues of limb (Acute) Other hammer toe (acquired) (Acute) Corns and callosities (Acute) Acute cognitive decline (Acute) Cold sensation of skin (Acute) Neuropathy (Acute) Chronic pain syndrome (Acute) Weening started 11/09/21. Lowered to 15mg daily. 12/10/16 RENEWAL OF CONTROLLED SUBSTANCE AGREEMENT 04/2021-updated agreement/VPMS query and drug screen Diabetes mellitus (Acute) Essential hypertension (Acute 03/16/13) Sexual function problem (Acute) Polyp of colon (Acute 06/25/08) Peripheral neuralgia (Acute) of feet; idiopathic; multiple neuro w/u's; 2 brothers and mother with similar issue...likely genetic origin multiple neuro consults. See 2013 Dr Garcia. Obesity (Acute) Hyperlipidemia (Acute) Complete edentulism, unspecified (Acute) Chronic obstructive lung disease (Acute) Atrial fibrillation (Acute) beginning in 2002, it was initially paroxysmal and cardioverted. It is now chronic. On warfarin Anticoagulated on warfarin (Acute) A-fib; goal 2-3 Hemorrhoids (Acute) Open wound of right heel (Acute) Followed by [facility] Anxiety (Chronic) Surgical History CARDIOVERSION (~2002) Hx of cataract surgery Hx of colonoscopy Repair of inguinal hernia (~1975) right Family History Mother Stroke Father Heart disease Brother Diabetes Brother No problems noted. Maternal Grandfather No problems noted. Paternal Grandfather No problems noted. Maternal Grandmother No problems noted. Son Hypertension Daughter Depression Social History Smoking/Tobacco Use Status: Former Tobacco Use tobacco type: cigarettes Quit Date: 05/26/08 Second Hand Exposure: Yes Smoking risk assessment performed?: Yes Alcohol Intake: current Alcohol Intake frequency: a few times a week Alcohol type: beer Drug use: Occasionally Substance use type: marijuana Details: pt stated to MD no use of tobacco, alcohol, or substance use Caregiver/Support person: No Household members: children Housing: house Communication Needs: None Do you need help understanding health information?: Always Pets and animals: No Sexually active: No Do you think of yourself as: straight/heterosexual Current gender identity: male What is your relationship status?: How often do you talk on the phone with friends or family?: twice per week How often do you get together with friends or relatives?: three or more times per week How often do you attend denominational or quaker services?: decline to answer Do you belong to any clubs or organized social groups?: yes Panel score (0-1 are the most socially isolated patients): 2 What type of physical activity do you participate in: none Duration: 15-30 minutes/day Frequency: daily Khalida/Latter-Day: No preference Special khalida needs: No Seatbelt use: never Helmet use: No Drive intox or ride w/intox armor reconnaissance vehicle driver: No Do you feel safe at home: Yes Do you feel safe in your relationship?: Yes Victim of physical abuse: No Victim of emotional abuse: No Victim of sexual abuse: No Would you like helpful sources: No Meds Allergies and Home Medications Allergies Allergy/AdvReac Type Severity Reaction Status Date / Time ibuprofen Allergy Unknown ITCHING Verified 02/05/23 17:04 simvastatin AdvReac Intermediate ? OF Verified 02/05/23 17:04 NEUROPATHY OF FEET ILENE Inhibitors AdvReac Unknown COUGH Verified 02/05/23 17:04 Home Medications Medication Instructions Recorded Confirmed Type cyanocobalamin (vitamin B-12) 1,000 mcg PO DAILY #90 caps 12/10/21 02/05/23 Rx 1,000 mcg capsule metformin 1,000 mg tablet 1,000 mg PO BID #180 tabs 03/04/22 02/05/23 Rx duloxetine 60 mg capsule,delayed 60 mg PO DAILY #90 tabs 03/19/22 02/05/23 Rx release pravastatin 40 mg tablet 40 mg PO DAILY #90 tab-caps 06/07/22 02/05/23 Rx metoprolol succinate 200 mg 200 mg PO DAILY #90 tabs 06/19/22 02/05/23 Rx tablet,extended release 24 hr (Toprol XL) pregabalin 100 mg capsule (Lyrica) 100 mg PO TID #270 caps 09/18/22 02/05/23 Rx losartan 50 mg tablet (Cozaar) 50 mg PO DAILY #90 tab-caps 10/11/22 02/05/23 Rx sertraline 100 mg tablet 100 mg PO DAILY #90 tabs 11/08/22 02/05/23 Rx warfarin 5 mg tablet See Rx Instructions PO .COMPLEX 11/08/22 02/05/23 Rx #100 tabs divalproex 500 mg tablet,delayed 500 mg PO BID #60 tabs 11/14/22 02/05/23 Rx release (Depakote) divalproex 250 mg tablet,delayed 250 mg PO BID #60 tabs 01/15/23 02/05/23 Rx release (Depakote) morphine 15 mg tablet,extended 15 mg PO ONCE pain #28 tabs 01/22/23 02/05/23 Rx release (MS Contin) levothyroxine 25 mcg tablet 25 mcg PO DAILY #90 tab-caps 02/05/23 02/05/23 Rx (Synthroid) Exam Narrative Exam Narrative: General: Lying in bed supine. Asleep but wakens readily. NAD. Interactive. HEENT: MMM, sclera clear. Respiratory: Clear breath sounds in anterior chest. Nonlabored breathing. Cardiac: Tachycardia with rate in the 90's, regular rhythm, S1S2 intact, no murmurs GI: abdomen soft, non-tender, non-distended Skin: Diaphoretic and plethora of the face. Neuro: Alert to self and daughter. No focal motor deficits. Extremities: No signs of trauma, no edema. Results Labs 02/05/23 17:10 02/05/23 17:44 Labs: Laboratory Results - last 24 hr 02/05/23 02/05/23 02/05/23 17:10 17:10 17:10 WBC 9.88 RBC 4.22 L Hgb 12.7 L Hct 39.6 L MCV 94 MCH 30.1 MCHC 32.1 RDW 13.4 Plt Count 89 L MPV 12.4 H Immature Gran % 0.4 Neutrophils % 84.3 Lymphocytes % 5.6 Monocytes % 8.3 Eosinophils % 1.2 Basophils % 0.2 Nucleated RBC % 0.0 Absolute Neutrophils 8.33 H Absolute Lymphocytes 0.55 L Absolute Monocytes 0.82 H Absolute Eosinophils 0.12 Absolute Basophils 0.02 PT Cancelled INR Cancelled APTT Cancelled VBG pH VBG pCO2 VBG pO2 VBG HCO3 VBG Total CO2 VBG O2 Saturation VBG Base Excess Sodium Cancelled Potassium Cancelled Chloride Cancelled Carbon Dioxide Cancelled Anion Gap Cancelled BUN Cancelled Creatinine Cancelled Est GFR (CKD-EPI 2020) Cancelled Glucose Cancelled Calcium Cancelled Magnesium Cancelled Total Bilirubin Cancelled AST Cancelled ALT Cancelled Alkaline Phosphatase Cancelled NT-Pro-B Natriuret Pep Cancelled Total Protein Cancelled Albumin Cancelled TSH Cancelled Urine Color Urine Clarity Urine pH Ur Specific [place] Urine Protein Urine Ketones Urine Blood Urine Nitrite Urine Bilirubin Urine Urobilinogen Ur Leukocyte Esterase Urine RBC Urine WBC Ur Epithelial Cells Urine Crystals Urine Bacteria Urine Casts Urine Mucus Ur Culture Indicated? Urine Glucose COVID-19 Source SARS-CoV-2 (PCR) Influenza Type A (PCR) Influenza Type B (PCR) RSV (PCR) 02/05/23 02/05/23 02/05/23 17:10 17:44 17:45 WBC RBC Hgb Hct MCV MCH MCHC RDW Plt Count MPV Immature Gran % Neutrophils % Lymphocytes % Monocytes % Eosinophils % Basophils % Nucleated RBC % Absolute Neutrophils Absolute Lymphocytes Absolute Monocytes Absolute Eosinophils Absolute Basophils PT INR APTT VBG pH 7.42 H VBG pCO2 43 VBG pO2 65 VBG HCO3 28 VBG Total CO2 25 VBG O2 Saturation 94 VBG Base Excess 4 H Sodium 137 Potassium 4.2 Chloride 101 Carbon Dioxide 27.6 Anion Gap 8.4 BUN 23 H Creatinine 1.1 Est GFR (CKD-EPI 2020) 70.44 Glucose 142 H Calcium 7.8 L Magnesium 1.4 L Total Bilirubin 0.4 AST 11 L ALT 9 L Alkaline Phosphatase 61 NT-Pro-B Natriuret Pep 503 H Total Protein 6.2 L Albumin 3.1 L TSH 1.91 Urine Color Urine Clarity Urine pH Ur Specific [place] Urine Protein Urine Ketones Urine Blood Urine Nitrite Urine Bilirubin Urine Urobilinogen Ur Leukocyte Esterase Urine RBC Urine WBC Ur Epithelial Cells Urine Crystals Urine Bacteria Urine Casts Urine Mucus Ur Culture Indicated? Urine Glucose COVID-19 Source NASOPHARYNX SARS-CoV-2 (PCR) Negative Influenza Type A (PCR) Negative Influenza Type B (PCR) Negative RSV (PCR) Negative 02/05/23 02/05/23 18:17 19:43 WBC RBC Hgb Hct MCV MCH MCHC RDW Plt Count MPV Immature Gran % Neutrophils % Lymphocytes % Monocytes % Eosinophils % Basophils % Nucleated RBC % Absolute Neutrophils Absolute Lymphocytes Absolute Monocytes Absolute Eosinophils Absolute Basophils PT 52.5 H INR 5.2 H* APTT 56.4 H VBG pH VBG pCO2 VBG pO2 VBG HCO3 VBG Total CO2 VBG O2 Saturation VBG Base Excess Sodium Potassium Chloride Carbon Dioxide Anion Gap BUN Creatinine Est GFR (CKD-EPI 2020) Glucose Calcium Magnesium Total Bilirubin AST ALT Alkaline Phosphatase NT-Pro-B Natriuret Pep Total Protein Albumin TSH Urine Color Yellow Urine Clarity Clear Urine pH 7.0 Ur Specific [place] 1.015 Urine Protein Negative Urine Ketones Trace H Urine Blood Small H Urine Nitrite Negative Urine Bilirubin Negative Urine Urobilinogen 0.2 Ur Leukocyte Esterase Negative Urine RBC 3-5 H Urine WBC 0-2 Ur Epithelial Cells Rare Urine Crystals Negative Urine Bacteria Negative Urine Casts Negative Urine Mucus Negative Ur Culture Indicated? No Urine Glucose Negative COVID-19 Source SARS-CoV-2 (PCR) Influenza Type A (PCR) Influenza Type B (PCR) RSV (PCR) Last Vital Signs Temp 37.7 C H 02/05/23 18:47 Pulse 84 02/05/23 19:38 Resp 29 H 02/05/23 17:05 BP 116/50 L 02/05/23 19:38 Pulse Ox 93 02/05/23 19:40 Time Spent Time spent with Patient: 40-54 minutes Time was spent: preparing to see the patient(eg.review tests), obtaining and/or reviewing separately otained hiistory, ordering medications,tests, procedures, referring, communicating with other health customer care representative, indepentently interpreting results and care coordination
[2023-02-05 20:07] LABS: Tricyclic Antidepressants Negative (Negative)
[2023-02-05 21:07] LABS: Lab Add On Test DONE
[2023-02-05] MEDS: MAGNESIUM SULFATE 4 GM/100 ML BAG IVPB (21:23)
[2023-02-05] MEDS: Normal Saline 500 ML 30 ML IV (21:27)
[2023-02-05 22:20] LABS: Procalcitonin 0.2 ng/mL
[2023-02-05] MEDS: T 40 MG PO (23:46)
[2023-02-06] VITALS (10 sets, daily range): BP systolic 90–109; BP diastolic 56–70; PULSE 59–83; RESP 1–18; TEMP 36.1–36.7; O2SAT 90–98
[2023-02-06] MEDS: Divalproex 500 MG TABEC PO ×3 (00:40→20:06)
[2023-02-06] MEDS: Divalproex 250 MG TABEC PO ×3 (00:40→20:06)
[2023-02-06] MEDS: Levothyroxine 25 MCG TAB PO (04:09)
[2023-02-06] MEDS: cefTRIAXone 1 GM/50 ML BAG IVPB (08:30)
[2023-02-06] MEDS: Losartan 50 MG TAB PO (08:30)
[2023-02-06] MEDS: Sertraline 100 MG TAB PO (08:30)
[2023-02-06] MEDS: Pregabalin 100 MG CAP PO ×3 (08:30→20:06)
[2023-02-06] MEDS: Metoprolol CR 100 MG TABCR 200 MG PO (08:30)
[2023-02-06] MEDS: DULoxetine 30 MG CAP 60 MG PO (08:30)
[2023-02-06 09:15] LABS: Magnesium 2.4 mg/dL (1.8-2.4)
[2023-02-06] MEDS: Albuterol/Ipratropium 3 ML UPD VIAL UPD ×2 (09:30→13:54)
[2023-02-06 09:44] LABS: INR 3.1 (0.9-1.1); Prothrombin Time 31.5 sec (9.3-11.0)
[2023-02-06] MEDS: Normal Saline Flush 10 ML SYR (09:52)
[2023-02-06 10:26] LABS: HCT 41.8 % (40.0-50.0); HGB 13.9 g/dL (13.5-17.5); MCH 31.1 pg (27.0-33.0); MCHC 33.3 % (32.0-36.0); MCV 94 fL (80-95); MPV 11.4 fL (8.0-11.0); RBC 4.47 10^6/uL (4.36-5.78); RDW 13.4 % (11.8-14.1); RDW-SD 46.3 fL; WBC 8.12 10^3/uL (4.4-10.8)
[2023-02-06 10:34] LABS: Platelet Count 64 10^3/uL (130-400)
[2023-02-06] MEDS: Insulin Aspart 300 UNITS/3 ML PEN SC (12:09)
--- NOTE | 2023-02-06 13:59 | PGE_ITS ---
Date of Service Date of service: 02/06/23 Time of Service: 13:59 Assessment and Plan Assessment and plan (1) AMS (altered mental status): Status: Acute Assessment and plan: improved. kasandra d/t baseline mild cognitive impairment and now w/ superimposed infection (pneumonia), improving now that he is afebrile and responding to antibiotics (Rocephin and azithromycin) (2) Pneumonia: Status: Acute Assessment and plan: as above, continue Rocephin and azithromycin, change nebulizers to prn, wean oxygen. SPO2 90-91% (3) Atrial fibrillation: Status: Acute Assessment and plan: remains in afib but controlled rate, currently on metoprolol XL 200 mg daily; however, he has had some mild hypotension w/ SBP in the 90's asymptomatic. I have put his losartan on hold, put holding parameters on his Toprol XL, if it remains low then may need to decr. dose (4) Chronic obstructive lung disease: Status: Acute Assessment and plan: Schedule Duonebs / may be able to decrease frequency. PRN albuterol. (5) Cognitive decline: Status: Acute Assessment and plan: Per neurology note, Dr Ackerman on 01/15/23 his baseline MOCA showed impairments in the rontal lobe processing as well as delay recall. Increased depakote at that visit. (6) Hypomagnesemia: Status: Acute Assessment and plan: Replete and monitor. now up to 2.4 (from 1.4 yesterday. hold further doses unless he ends up on diuretics. (7) Neuropathy: Status: Acute Assessment and plan: Followed by Dr Ackerman. Severe neuropathy and NCS of the UE showed extensiv e neuropahty. She reported he hasn't responded well to neuropathic pain medications. Continues on Lyrica. (8) Diabetes mellitus: Status: Acute Assessment and plan: Hold metformin AC glucose monitoring Sensitive level SS correction insulin dosing glucose levels acceptable at 95 to 174 (9) Essential hypertension: Status: Acute Assessment and plan: hold losartan, metoprolol given parameters for hold if SBP < 110 or HR <55 bpm (10) Hyperlipidemia: Status: Acute Assessment and plan: Cont pravastatin. (11) Anxiety: Status: Chronic Assessment and plan: continue sertraline and duloxetine. Subjective Subjective Interval history since last seen: Venkata states that he is feeling better, not dyspneic at rest, has moist cough, but no sputum has been collected yet. Exam Narrative Exam Narrative: Bill is alert and oriented Lungs: basilar rales and rhonchi, upper garcia clear Heart: irregularly irregular but controlled rate Extremities: no edema Objective Last Vital Signs Temp 36.2 C L 02/06/23 11:48 Pulse 64 02/06/23 13:54 Resp 18 02/06/23 13:54 BP 90/58 L 02/06/23 13:39 Pulse Ox 90 L 02/06/23 13:54 Laboratory Results - last 24 hr 02/05/23 02/05/23 02/05/23 17:10 17:10 17:10 WBC 9.88 RBC 4.22 L Hgb 12.7 L Hct 39.6 L MCV 94 MCH 30.1 MCHC 32.1 RDW 13.4 Plt Count 89 L MPV 12.4 H Immature Gran % 0.4 Neutrophils % 84.3 Lymphocytes % 5.6 Monocytes % 8.3 Eosinophils % 1.2 Basophils % 0.2 Nucleated RBC % 0.0 Absolute Neutrophils 8.33 H Absolute Lymphocytes 0.55 L Absolute Monocytes 0.82 H Absolute Eosinophils 0.12 Absolute Basophils 0.02 PT Cancelled INR Cancelled APTT Cancelled VBG pH VBG pCO2 VBG pO2 VBG HCO3 VBG Total CO2 VBG O2 Saturation VBG Base Excess Sodium Cancelled Potassium Cancelled Chloride Cancelled Carbon Dioxide Cancelled Anion Gap Cancelled BUN Cancelled Creatinine Cancelled Est GFR (CKD-EPI 2020) Cancelled Glucose Cancelled Calcium Cancelled Magnesium Cancelled Total Bilirubin Cancelled AST Cancelled ALT Cancelled Alkaline Phosphatase Cancelled NT-Pro-B Natriuret Pep Cancelled Total Protein Cancelled Albumin Cancelled Procalcitonin TSH Cancelled Urine Color Urine Clarity Urine pH Ur Specific [place] Urine Protein Urine Ketones Urine Blood Urine Nitrite Urine Bilirubin Urine Urobilinogen Ur Leukocyte Esterase Urine RBC Urine WBC Ur Epithelial Cells Urine Crystals Urine Bacteria Urine Casts Urine Mucus Ur Culture Indicated? Urine Glucose Urine Opiates Screen Urine Methadone Screen Ur Barbiturates Screen Ur Tricyclics Screen Ur Amphetamines Screen U Benzodiazepines Scrn Urine Cocaine Screen Ur THC Screen COVID-19 Source SARS-CoV-2 (PCR) Influenza Type A (PCR) Influenza Type B (PCR) RSV (PCR) Add-On Test Request 02/05/23 02/05/23 02/05/23 17:10 17:44 17:45 WBC RBC Hgb Hct MCV MCH MCHC RDW Plt Count MPV Immature Gran % Neutrophils % Lymphocytes % Monocytes % Eosinophils % Basophils % Nucleated RBC % Absolute Neutrophils Absolute Lymphocytes Absolute Monocytes Absolute Eosinophils Absolute Basophils PT INR APTT VBG pH 7.42 H VBG pCO2 43 VBG pO2 65 VBG HCO3 28 VBG Total CO2 25 VBG O2 Saturation 94 VBG Base Excess 4 H Sodium 137 Potassium 4.2 Chloride 101 Carbon Dioxide 27.6 Anion Gap 8.4 BUN 23 H Creatinine 1.1 Est GFR (CKD-EPI 2020) 70.44 Glucose 142 H Calcium 7.8 L Magnesium 1.4 L Total Bilirubin 0.4 AST 11 L ALT 9 L Alkaline Phosphatase 61 NT-Pro-B Natriuret Pep 503 H Total Protein 6.2 L Albumin 3.1 L Procalcitonin TSH 1.91 Urine Color Urine Clarity Urine pH Ur Specific [place] Urine Protein Urine Ketones Urine Blood Urine Nitrite Urine Bilirubin Urine Urobilinogen Ur Leukocyte Esterase Urine RBC Urine WBC Ur Epithelial Cells Urine Crystals Urine Bacteria Urine Casts Urine Mucus Ur Culture Indicated? Urine Glucose Urine Opiates Screen Urine Methadone Screen Ur Barbiturates Screen Ur Tricyclics Screen Ur Amphetamines Screen U Benzodiazepines Scrn Urine Cocaine Screen Ur THC Screen COVID-19 Source NASOPHARYNX SARS-CoV-2 (PCR) Negative Influenza Type A (PCR) Negative Influenza Type B (PCR) Negative RSV (PCR) Negative Add-On Test Request 02/05/23 02/05/23 02/05/23 18:17 19:43 19:43 WBC RBC Hgb Hct MCV MCH MCHC RDW Plt Count MPV Immature Gran % Neutrophils % Lymphocytes % Monocytes % Eosinophils % Basophils % Nucleated RBC % Absolute Neutrophils Absolute Lymphocytes Absolute Monocytes Absolute Eosinophils Absolute Basophils PT 52.5 H INR 5.2 H* APTT 56.4 H VBG pH VBG pCO2 VBG pO2 VBG HCO3 VBG Total CO2 VBG O2 Saturation VBG Base Excess Sodium Potassium Chloride Carbon Dioxide Anion Gap BUN Creatinine Est GFR (CKD-EPI 2020) Glucose Calcium Magnesium Total Bilirubin AST ALT Alkaline Phosphatase NT-Pro-B Natriuret Pep Total Protein Albumin Procalcitonin TSH Urine Color Yellow Urine Clarity Clear Urine pH 7.0 Ur Specific [place] 1.015 Urine Protein Negative Urine Ketones Trace H Urine Blood Small H Urine Nitrite Negative Urine Bilirubin Negative Urine Urobilinogen 0.2 Ur Leukocyte Esterase Negative Urine RBC 3-5 H Urine WBC 0-2 Ur Epithelial Cells Rare Urine Crystals Negative Urine Bacteria Negative Urine Casts Negative Urine Mucus Negative Ur Culture Indicated? No Urine Glucose Negative Urine Opiates Screen Positive A Urine Methadone Screen Negative Ur Barbiturates Screen Negative Ur Tricyclics Screen Negative Ur Amphetamines Screen Negative U Benzodiazepines Scrn Negative Urine Cocaine Screen Negative Ur THC Screen Negative COVID-19 Source SARS-CoV-2 (PCR) Influenza Type A (PCR) Influenza Type B (PCR) RSV (PCR) Add-On Test Request 02/05/23 02/05/23 02/06/23 21:28 Unknown 06:23 WBC RBC Hgb Hct MCV MCH MCHC RDW Plt Count MPV Immature Gran % Neutrophils % Lymphocytes % Monocytes % Eosinophils % Basophils % Nucleated RBC % Absolute Neutrophils Absolute Lymphocytes Absolute Monocytes Absolute Eosinophils Absolute Basophils PT INR APTT VBG pH VBG pCO2 VBG pO2 VBG HCO3 VBG Total CO2 VBG O2 Saturation VBG Base Excess Sodium Potassium Chloride Carbon Dioxide Anion Gap BUN Creatinine Est GFR (CKD-EPI 2020) Glucose Calcium Magnesium 2.4 Total Bilirubin AST ALT Alkaline Phosphatase NT-Pro-B Natriuret Pep Total Protein Albumin Procalcitonin 0.2 TSH Urine Color Urine Clarity Urine pH Ur Specific [place] Urine Protein Urine Ketones Urine Blood Urine Nitrite Urine Bilirubin Urine Urobilinogen Ur Leukocyte Esterase Urine RBC Urine WBC Ur Epithelial Cells Urine Crystals Urine Bacteria Urine Casts Urine Mucus Ur Culture Indicated? Urine Glucose Urine Opiates Screen Urine Methadone Screen Ur Barbiturates Screen Ur Tricyclics Screen Ur Amphetamines Screen U Benzodiazepines Scrn Urine Cocaine Screen Ur THC Screen COVID-19 Source SARS-CoV-2 (PCR) Influenza Type A (PCR) Influenza Type B (PCR) RSV (PCR) Add-On Test Request DONE 02/06/23 02/06/23 06:23 06:23 WBC 8.12 RBC 4.47 Hgb 13.9 Hct 41.8 MCV 94 MCH 31.1 MCHC 33.3 RDW 13.4 Plt Count 64 L MPV 11.4 H Immature Gran % Neutrophils % Lymphocytes % Monocytes % Eosinophils % Basophils % Nucleated RBC % Absolute Neutrophils Absolute Lymphocytes Absolute Monocytes Absolute Eosinophils Absolute Basophils PT 31.5 H INR 3.1 H APTT VBG pH VBG pCO2 VBG pO2 VBG HCO3 VBG Total CO2 VBG O2 Saturation VBG Base Excess Sodium Potassium Chloride Carbon Dioxide Anion Gap BUN Creatinine Est GFR (CKD-EPI 2020) Glucose Calcium Magnesium Total Bilirubin AST ALT Alkaline Phosphatase NT-Pro-B Natriuret Pep Total Protein Albumin Procalcitonin TSH Urine Color Urine Clarity Urine pH Ur Specific [place] Urine Protein Urine Ketones Urine Blood Urine Nitrite Urine Bilirubin Urine Urobilinogen Ur Leukocyte Esterase Urine RBC Urine WBC Ur Epithelial Cells Urine Crystals Urine Bacteria Urine Casts Urine Mucus Ur Culture Indicated? Urine Glucose Urine Opiates Screen Urine Methadone Screen Ur Barbiturates Screen Ur Tricyclics Screen Ur Amphetamines Screen U Benzodiazepines Scrn Urine Cocaine Screen Ur THC Screen COVID-19 Source SARS-CoV-2 (PCR) Influenza Type A (PCR) Influenza Type B (PCR) RSV (PCR) Add-On Test Request Time Spent with Patient Time Spent with Patient: 25-34 minutes Time was spent: ordering medications,tests, procedures, referring, communicating with other health career development counselor, indepentently interpreting results, counseling the patient and care coordination
--- NOTE | 2023-02-06 14:21 | INITIAL_ITS ---
Date of service: 02/06/23 Time of Service: 14:21 Care Management Initial Assmt Initial Assessment REASON FOR HOSPITALIZATION:: Pneumonia, AMS PREVIOUS FUNCTIONAL STATUS/SOCIAL/FAMILY SUPPORTS:: , resides in [place], with supportive son, Juni who support his care needs. His daughter Antonia also resides locally, Venkata shares that his two children brought him to the hospital. 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 Identifies neuropathy as limiting to ADLs though reports he is still able to manage dressing himself, meals and cleaning, though is not confident about specifics; appears to possibly have some baseline confusion, is on CIWA and medication. Venkata states that he does continue to drive. CURRENT FUNCTIONAL STATUS:: On CIWA, utilizing FWW to transfer from bed to chair with two mod assist. Baseline hand tremors and confusion on date/time noted at baseline per [employer] senior specialist. Venkata is sitting up in his chair when CM meets with him, he reports not remembering if he has services in the home currently- community based services reviewed; Venkata reports being open to all recommended, including VNA and MOW if needed. 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 He identifies his biggest concern being neuropathy of his hands, and states he is currently followed by neurology. Venkata is pleasant in interaction and shares no additional concerns when prompted. ADVANCE DIRECTIVES:: None on file. Has patient been provided with info about the portal/API?: Yes Did the patient sign up for the portal?: Yes CODE STATUS:: Full Code INSURANCE COVERAGE / FINANCIAL ISSUES:: Medicare [employer] CURRENT HOME/COMMUNITY SERVICES/EQUIPMENT:: @, Neurology at [facility] PRIMARY CARE PHYSICIAN:: David Zuleta POTENTIAL DISCHARGE NEEDS:: Follow up appointments, PT consult. PATIENT/FAMILY EDUCATION NEEDS:: Review discharge instructions, discuss Ask Me Three. ANTICIPATED BARRIERS TO DISCHARGE:: CIWA protocol TRANSPORTATION:: Via private vehicle with family. PLAN:: Anticipate Venkata will return home when ready per MD. He will follow up with community providers and his plan of care as prescribed. He will transport via private vehicle with family. PFSH All Active Problems (Updated 02/05/23 @ 20:18 by Dontae Mitchell MD) Cognitive decline (Acute) Supratherapeutic INR (Acute) Hypomagnesemia (Acute) AMS (altered mental status) (Acute) Pneumonia (Acute) Hypothyroidism (Chronic) Pain in soft tissues of limb (Acute) Other hammer toe (acquired) (Acute) Corns and callosities (Acute) Acute cognitive decline (Acute) Cold sensation of skin (Acute) Neuropathy (Acute) Chronic pain syndrome (Acute) Weening started 11/09/21. Lowered to 15mg daily. 12/10/16 RENEWAL OF CONTROLLED SUBSTANCE AGREEMENT 04/2021-updated agreement/VPMS query and drug screen Diabetes mellitus (Acute) Essential hypertension (Acute 03/16/13) Sexual function problem (Acute) Polyp of colon (Acute 06/25/08) Peripheral neuralgia (Acute) of feet; idiopathic; multiple neuro w/u's; 2 brothers and mother with similar issue...likely genetic origin multiple neuro consults. See 2013 Dr Garcia. Obesity (Acute) Hyperlipidemia (Acute) Complete edentulism, unspecified (Acute) Chronic obstructive lung disease (Acute) Atrial fibrillation (Acute) beginning in 2002, it was initially paroxysmal and cardioverted. It is now chronic. On warfarin Anticoagulated on warfarin (Acute) A-fib; goal 2-3 Hemorrhoids (Acute) Open wound of right heel (Acute) [facility] Anxiety (Chronic) Surgical History CARDIOVERSION (~2002) Hx of cataract surgery Hx of colonoscopy Repair of inguinal hernia (~1975) right Family History Mother Stroke Father Heart disease Brother Diabetes Brother No problems noted. Maternal Grandfather No problems noted. Paternal Grandfather No problems noted. Maternal Grandmother No problems noted. Son Hypertension Daughter Depression Social History Smoking/Tobacco Use Status: Former Tobacco Use tobacco type: cigarettes Quit Date: 05/26/08 Second Hand Exposure: Yes Smoking risk assessment performed?: Yes Alcohol Intake: current Alcohol Intake frequency: a few times a week Alcohol type: beer Drug use: Occasionally Substance use type: marijuana Details: pt stated to MD no use of tobacco, alcohol, or substance use Caregiver/Support person: No Household members: children Housing: house Communication Needs: None Do you need help understanding health information?: Always Pets and animals: No Sexually active: No Do you think of yourself as: straight/heterosexual Current gender identity: male What is your relationship status?: How often do you talk on the phone with friends or family?: twice per week How often do you get together with friends or relatives?: three or more times per week How often do you attend sikhism or quaker services?: decline to answer Do you belong to any clubs or organized social groups?: yes Panel score (0-1 are the most socially isolated patients): 2 What type of physical activity do you participate in: none Duration: 15-30 minutes/day Frequency: daily Khalida/Protestant: No preference Special khalida needs: No Seatbelt use: never Helmet use: No Drive intox or ride w/intox courtesy bus driver: No Do you feel safe at home: Yes Do you feel safe in your relationship?: Yes Victim of physical abuse: No Victim of emotional abuse: No Victim of sexual abuse: No Would you like helpful sources: No
[2023-02-06] MEDS: Normal Saline Flush 10 ML SYR IVP ×2 (15:13→20:07)
--- NOTE | 2023-02-06 16:16 | CHAPLAIN ---
Venkata was sitting in the chair watching tv when I visited this afternoon. I introduced myself, explained my role and offered support. Venkata was pleasant and indicated he was not in need of a conversation at this time. He said that he is in touch with family members.
[2023-02-06] MEDS: AZITHROMYCIN 500 MG in Normal Saline 250 ML 250 MG IVPB (18:13)
[2023-02-06] MEDS: T 40 MG PO (20:06)
[2023-02-06] MEDS: Nystatin POWDER 60 GM JAR TP (20:07)
[2023-02-07] VITALS: BP 131/86; PULSE 83; RESP 16; TEMP 36.3; O2SAT 94
[2023-02-07 03:45] VITALS: BP 125/78; PULSE 77; RESP 16; TEMP 36.6; O2SAT 93
[2023-02-07] MEDS: Levothyroxine 25 MCG TAB PO (05:58)
[2023-02-07 06:51] LABS: INR 1.9 (0.9-1.1); Prothrombin Time 18.8 sec (9.3-11.0)
[2023-02-07 07:38] VITALS: BP 133/89; PULSE 65; RESP 18; TEMP 35.1; O2SAT 96
[2023-02-07] MEDS: DULoxetine 30 MG CAP 60 MG PO (08:13)
[2023-02-07] MEDS: Divalproex 500 MG TABEC PO (08:13)
[2023-02-07] MEDS: Divalproex 250 MG TABEC PO (08:13)
[2023-02-07] MEDS: Metoprolol CR 100 MG TABCR 200 MG PO (08:14)
[2023-02-07] MEDS: Sertraline 100 MG TAB PO (08:15)
[2023-02-07] MEDS: Pregabalin 100 MG CAP PO ×2 (08:15→14:04)
[2023-02-07] MEDS: cefTRIAXone 1 GM/50 ML BAG IVPB (08:19)
[2023-02-07] MEDS: Normal Saline Flush 10 ML SYR IVP (08:25)
[2023-02-07 10:20] VITALS: PULSE 64; PULSE 84; PULSE 87; RESP 16; RESP 20; O2SAT 90; O2SAT 97; O2SAT 98
[2023-02-07] MEDS: Nystatin POWDER 60 GM JAR TP (10:21)
--- NOTE | 2023-02-07 10:24 | IN_ITS ---
PT Notes Visit Reasons: Pneumonmi, Altered Mental Status Physical Therapy Inpatient Initial Evaluation Date: 02/07/2023 Referring Doctor: Guido Everett MD PT Orders: PT CONSULT: Fall safety assessment Precautions: Fall. Standard. Activity as tolerated. Orthopedic shoes on when ambulating. Patient Profile/Admitting Diagnosis: Venkata is a 72-year-old male who presented to the ED on 02/05/2023 due to confusion, fever, and hypoxia. Patient is admitted to [facility] treatment for man agement of altered mental status, pneumonia, supratherapeutic INR, atrial fibrillation, chronic obstructive lung disease, hypomagnesemia diabetes mellitus hyperlipidemia and anxiety. PMHX: All Active Problems?(Updated 02/05/23 @ 20:18 by Dontae Mitchell MD) Cognitive decline (Acute) Supratherapeutic INR (Acute) Hypomagnesemia (Acute) AMS (altered mental status) (Acute) Pneumonia (Acute) Hypothyroidism (Chronic) Pain in soft tissues of limb (Acute) Other hammer toe (acquired) (Acute) Corns and callosities (Acute) Acute cognitive decline (Acute) Cold sensation of skin (Acute) Neuropathy (Acute) Chronic pain syndrome (Acute) Weening started 11/09/21. Lowered to 15mg daily. 12/10/16 RENEWAL OF CONTROLLED SUBSTANCE AGREEMENT 04/2021-updated agreement/VPMS query and drug screen Diabetes mellitus (Acute) Essential hypertension (Acute 03/16/13) Sexual function problem (Acute) Polyp of colon (Acute 06/25/08) Peripheral neuralgia (Acute) of feet; idiopathic; multiple? neuro w/u's; 2 brothers and mother with similar issue...likely genetic origin multiple neuro consults.? See 2013 Dr Garcia. Obesity (Acute) Hyperlipidemia (Acute) Complete edentulism, unspecified (Acute) Chronic obstructive lung disease (Acute) Atrial fibrillation (Acute) beginning in 2002, it was initially paroxysmal and cardioverted. It is now chronic. On warfarin Anticoagulated on warfarin (Acute) A-fib; goal 2-3 Hemorrhoids (Acute) Open wound of right heel (Acute) Followed by [facility] Anxiety (Chronic) Surgical History? CARDIOVERSION (~2002) Hx of cataract surgery Hx of colonoscopy Repair of inguinal hernia (~1975) right Social History/Home Situation: Lives in a private home with 3 steps to enter with rails on both sides. Son lives with him and is a good support. Independent with all indoor and outdoor ambulation using SBQC. Able to prepare her own meals. Independent with self- care and bathing. Still drives. Equipment Owned/DME: SPC, SBQC Subjective: Feels that his feet are spongy, issue has been going on chronically now. Denies headache, chest pain, and lightheadedness throughout session. Did report a little out of breath during ambulation activity, resolves with rest. Objective: General Observation: Telemetry monitoring in place. IV through the right UE. Sitting on recliner. Mental Status: Alert and oriented as to person, place, time, and purpose. Able to pay attention, focus, and respond appropriately. Pain: Denies Vital Signs: Oxygen saturation the lowest of 89% on room air and HR highest of high 80s bpm during ambulation ROM: Right Upper Extremity: Shoulder Flexion WFL. Shoulder abduction WFL. Elbow flexion WFL. Wrist flexion WFL. Functional opening and closing of hand WFL. Left Upper Extremity: Shoulder Flexion WFL. Shoulder abduction WFL. Elbow flexion WFL. Wrist flexion WFL. Functional opening and closing of hand WFL. Right Lower Extremity: Hip flexion WFL. Hip abduction WFL. Knee flexion WFL. Ankle dorsiflexion WFL. Ankle plantarflexion WFL. Left Lower Extremity: Hip flexion WFL. Hip abduction WFL. Knee flexion WFL. Ankle dorsiflexion WFL. Ankle plantarflexion WFL. Strength: Right Upper Extremity: Shoulder flexors 4-/5. Shoulder abductors 4-/5. Elbow flexors 4-/5. Elbow extensors 4-/5. 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 Left Upper Extremity: Shoulder flexors 4-/5. Shoulder abductors 4-/5. Elbow flexors 4-/5. Elbow extensors 4-/5. 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 Right Lower Extremity: Hip flexors 4-/5. Hip abductors 4-/5. Knee flexors 4-/5. Knee extensors 4-/5. Ankle dorsiflexors 4-/5. Ankle plantarflexors 4-/5. Left Lower Extremity: Hip flexors 4-/5. Hip abductors 4-/5. Knee flexors 4-/5. Knee extensors 4-/5. Ankle dorsiflexors 4-/5. Ankle plantarflexors 4-/5. Bed Mobility/Transfers: Sit to stand with standby assist using SBQC Stand to sit with standby assist using SBQC Gait: Instructed patient with level surface ambulation of 150 feet + 180 feet requiring conatct guard assist. Samia decreased. Mildly shaky at first. Needed to do 2 standing rests to pace self. Prefered to use the SPC over FWW. Stairs: Guided and instructed patient on ascending and descending 6 x 4 inch steps and 4 x 6 inch steps holding onto 1 rail with 1 hand and using a single-point cane on the other hand with contact-guard assist and IV line management by PT. Balance: Static Sitting: Normal Dynamic Sitting: Normal Static Standing: Fair Dynamic Standing: Fair Special Tests: Mobility Limitations Standardized Measure [facility] AM-PAC 6 clicks Basic Mobility Inpatient Short Form: Raw Score: 22 CMS Score: 21% deficit 4-Stage balance Test: Able to maintain feet together for 10 seconds but was unable to do so with semi- tandem, full tandem and one-legged stance. Informed Consent/Education: Patient was instructed in purpose of PT consult and plan of care. Agreeable to proceed with established PT POC to achieve personal goals. Assessment: Mildly shaky requiring the use of a single-point cane during ambulation activity for improved stability. Will benefit benefit from home health PT services in order to reduce risk for falls and to ensure a smooth transition to going home. Patient presents with clinical signs and symptoms consistent with curren t/admitting diagnoses that have resulted to mobility limitations, gait instability, generalized weakness, and overall ADL decline as demonstrated by the following impairment level findings: 1. Decreased strength to B UE/LE major muscle groups 2. Impaired sitting/standing balance 3. Impaired activity tolerance 4. Shortness of breath Impairments are contributing to the following functional limitations: 1. Difficulty with ambulation without assistive device 2. Increased completion time for mobility ADL performance 3. Increased risk for falls 4. Difficulty with managing steps alone safely Patient is assessed as a 04100 moderate complexity based on the following: History: 72-year-old male with past medical history as indicated above Examination: Demonstrable impairment in strength, balance, and mobility level with underlying impairments and functional limitations as exhibited above as well as deficit score of 21% utilizing the [facility] Mobility Inpatient Short Form Presentation: Evolving Decision Makin moderate complexity Goals: Goals X1 week 1. Supine-Sit independent 2. Sit-Supine independent 3. Sit-Stand independent 4. Stand-Sit independent with SPC 5. Bed-Chair independent with SPC 6. Chair-Bed independent with SPC 7. Independent gait on level surface with use of SPC for at least 300 feet without report of pain nor dyspnea 8. Independent stair negotiation while holding onto B rails or 1 rail and using SPC for at least 3 steps without report of pain nor dyspnea 9. Independent with home exercise program 10. Good static and dynamic standing balance/tolerance Plan of Care/Treatment Plan: 1-2x/day, 7 days/week x 1 week. Plan of care has been reviewed with the MEDICAL RADIATION TECH providing the service under Physical Therapy direction. Initiate Physical Therapy intervention for pain management as needed, strengthening, bed mobility, transfers, gait, stairs, balance training, and use of assistive device. DISCHARGE RECOMMENDATIONS: [] Home with no services [] [X] Home with services. Patient will benefit from home health PT services in order to progress mobility level using least restrictive assistive ambulatory device, assess home safety, identify additional equipment needs, and establish a functional maintenance program that will increase ability of patient to remain at home. [] Home with outpatient PT [] [] SNF for continued rehabilitation [] [] Penitentiary Care [] [] SNF versus LTC based on ability to participate and progress [] TREATMENT CODE/TIME: 9716 2 x 25 minutes, 77758 x 16 minutes beginning at 9:38 AM. Thank you for the opportunity to participate in the care of this patient. Ninfa Leroy PT, DPT, CLT [facility] [place], [place]
[2023-02-07 11:05] VITALS: BP 115/73; PULSE 61; RESP 17; TEMP 36.3; O2SAT 95
--- NOTE | 2023-02-07 11:35 | W.PM.DS.N ---
Date of service: 02/07/23 Time of Service: 11:35 DS: Diagnosis Discharge Diagnosis (1) AMS (altered mental status): Status: Acute (2) Pneumonia: Status: Acute (3) Atrial fibrillation: Status: Acute (4) Chronic obstructive lung disease: Status: Acute (5) Cognitive decline: (6) Hypomagnesemia: Status: Resolved (7) Neuropathy: Status: Acute (8) Diabetes mellitus: Status: Acute (9) Essential hypertension: Status: Acute (10) Hyperlipidemia: Status: Acute (11) Anxiety: Status: Chronic Discharge Plan Disposition Patient Disposition: Home Condition: Improving Discharge Details Reason For Visit: Pneumonmi, Altered Mental Status Admit Date/Time: 02/05/23 19:53 Admit Provider: Dontae Mitchell Attending Provider: Dontae Mitchell Primary Care Provider: David Zuleta Hospital Course Hospital Course: This is a 72 yo male patient with a PMH of COPD, Afib on coumadin, cognitive decline, DM2, HTN, HLD, anxiety, hypothyroidism, previous alcohol abuse disorder who presented to the [facility] ED on 02/05 for evaluation of fever, confusion, tremors, hallucinations per family. His daughter saw him at appx 1:30 in the afternoon and reports he seemed a little off and she thought he was likely tired.? EMS reported patient was hypoxic with O2 sats. in the 80's at home.? No reported cough/sputum, CP/palpitations, N/V/abd pain. No EDMOND. ? He was noted to have rhonchorous breath sounds. Lab with normal WBC.? Hgb 12.7. Plts 89.? INR 5.2. Na and K normal.? BUN 23.? Creatinine 1.1.? Glucose 142. Mg 1.4. UA unremarkable.? CT head w/o acute processes.? CXR with suspicion for LLL pneumonia. Rocephin and azithromycin initiated in the ED. He was given ativan, his tremulousness and diaphoresis improved significantly. This resolved by HD2. Patient was treated for pneumonia. His vital signs are stable, he is not hypoxic, he is not febrile and he is at baseline mental status. He has two days left of antibiotics, prescriptions have been sent to his pharmacy on file. He was evaluated by physical therapy and they recommend home health PT to help with strengthening and to progress mobility level using least restrictive assistive ambulatory device, assess home safety, identify additional equipment needs, and establish a functional maintenance program that will increase ability of patient to remain at home.?Patient was discharged to home, stable. Home Meds and New Rx's Prescriptions: New cefpodoxime 200 mg tablet 200 mg PO BID Qty: 4 0RF Rx Instructions: must administer with a meal/food guaifenesin 600 mg tablet extended release 12hr 600 mg PO Q12H Qty: 60 0RF Continued divalproex [Depakote] 500 mg tablet,delayed release (DR/EC) 500 mg PO BID Qty: 60 5RF divalproex [Depakote] 250 mg tablet,delayed release (DR/EC) 250 mg PO BID Qty: 60 5RF Rx Instructions: in addition to 500mg BID for total 750mg BID sertraline 100 mg tablet 100 mg PO DAILY Qty: 90 3RF warfarin 5 mg tablet See Rx Instructions PO .COMPLEX Qty: 100 6RF Protocol: Dose Management Condition: Friday Dose/Route: 5 mg Instruction: 1 x 5 mg tablet Condition: Friday Dose/Route: 5 mg Instruction: 1 x 5 mg tablet Condition: Friday Dose/Route: 5 mg Instruction: 1 x 5 mg tablet Condition: Friday Dose/Route: 5 mg Instruction: 1 x 5 mg tablet Condition: Dose/Route: 5 mg Instruction: 1 x 5 mg tablet Condition: Friday Dose/Route: 7.5 mg Instruction: 1.5 x 5 mg tablets Condition: Friday Dose/Route: 5 mg Instruction: 1 x 5 mg tablet Protocol Text: Adjustment Start Date: Friday02/19/23 INR Value: 3.1 INR Date: 02/19/23 Recheck Date: 02/26/23 Rx Instructions: 0-2 Tabs DIRECTED by [facility], based up most recent NR cyanocobalamin (vitamin B-12) 1,000 mcg capsule 1,000 mcg PO DAILY Qty: 90 3RF duloxetine 60 mg capsule,delayed release(DR/EC) 60 mg PO DAILY Qty: 90 3RF pravastatin 40 mg tablet 40 mg PO DAILY Qty: 90 3RF metoprolol succinate [Toprol XL] 200 mg tablet extended release 24 hr 200 mg PO DAILY Qty: 90 4RF pregabalin [Lyrica] 100 mg capsule 100 mg PO TID Qty: 270 3RF Hold Instructions: Home Medication placed on hold at Doctor's office losartan [Cozaar] 50 mg tablet 50 mg PO DAILY Qty: 90 3RF morphine [MS Contin] 15 mg tablet extended release 15 mg PO ONCE MDD 15mg Qty: 28 0RF Rx Instructions: Take one pill each night. levothyroxine [Synthroid] 25 mcg tablet 25 mcg PO DAILY Qty: 90 3RF metformin 1,000 mg tablet 1,000 mg PO BID Qty: 180 3RF Discharge Instructions Instructions: Azithromycin (By mouth), Cefpodoxime Proxetil (By mouth), Pneumonia (DC) Stand Alone Forms: Nursing Discharge Form Referrals: David Zuleta NP [Primary Care Provider] - 02/19/23 3:00 pm Activity:: Activity as Tolerated Equipment/Supplies:: No Equipment Needed Diet:: As Tolerated Discharge Orders Discharge Orders: Discharge Order (Routine); Ordered 02/07/23 Ordered By: Deborah Busch Discharge Data Discharge Date/Time-TO BE ENTERED AT DEPARTURE: 02/07/23 14:06 DS: Summary Time Spent with Patient providing and/or coordinating discharge services: Greater than 30 minutes Status at Discharge Functional status at discharge: independent ambulation Overall status at discharge: patient is progressing back to baseline Mental Status: mental status grossly normal Speech and Movement: speech and movement normal Mood: congruent mood Affect: normal affect Exam Narrative Exam Narrative: General: Sitting in the room, awake, alert, conversant, states he feels better. HEENT: MMM, sclera clear. Respiratory: Clear breath sounds in anterior chest. Nonlabored breathing. Cardiac: Tachycardia with rate in the 90's, regular rhythm, S1S2 intact, no murmurs GI: abdomen soft, non-tender, non-distended Skin: Warm, dry, pink Neuro: Alert, No focal motor deficits. Extremities: No signs of trauma, no edema. Psych Mental Status: mental status grossly normal Speech and Movement: speech and movement normal Mood: congruent mood Affect: normal affect DS: Data Vitals/I&O Vitals and I&O: Vital Signs Temperature 36.3 C L 02/07/23 11:05 Temperature Source Tympanic 02/07/23 11:05 Pulse 61 02/07/23 11:05 Pulse Rhythm Regular 02/07/23 07:22 Pulse 93 H 02/05/23 20:31 Respiratory Rate 17 02/07/23 11:05 Respiratory Effort Normal 02/07/23 07:22 Respiratory Depth Normal 02/07/23 07:22 Respiratory Pattern Normal 02/07/23 07:22 Blood Pressure 115/73 02/07/23 11:05 Blood Pressure Mean 81 02/05/23 20:31 Blood Pressure Position Sitting 02/05/23 16:48 Pulse Oximetry 95 02/07/23 11:05 Respiratory End-tidal CO2 31 02/05/23 17:03 Oxygen Delivery Method Room Air 02/07/23 11:05 Oxygen Flow Rate 0 02/07/23 11:05 Pain Level 0 02/07/23 11:05 Comment notified Carina Canas RN to let know 02/06/23 13:39 Intake & Output 02/06/23 02/06/23 02/07/23 11:59 23:59 11:59 Intake Total 674 / 1164 490 / 1164 490 / 490 Output Total 475 / 775 300 / 775 Balance 199 / 389 190 / 389 490 / 490 Intake: IV 434 / 684 250 / 684 Oral 240 / 480 240 / 480 490 / 490 Output: Urine 475 / 775 300 / 775 Other: Urine Color Yellow Yellow Yellow Urine Appearance Clear Clear Comment patient prompted to drink more water Stool Size Moderate Stool Characteristics Soft Voiding Methods Toilet Diaper Incontinent Data Completed and Pending Labs on day of discharge: Labs from last 24 hours 02/07/23 02/06/23 02/06/23 06:24 22:55 22:55 PT 18.8 H INR 1.9 H Urine Legionella Ag Pending Ur Strep pneumoniae Ag Pending Preliminary micro results at discharge 02/05/23 17:45 Blood Culture - Preliminary Blood NO GROWTH 24 HOURS 02/05/23 17:10 Blood Culture - Preliminary Blood NO GROWTH 24 HOURS PFSH All Active Problems (Updated 02/08/23 @ 00:01 by JOSHUA PADRON) AMS (altered mental status) (Acute) Pneumonia (Acute) Hypothyroidism (Chronic) Pain in soft tissues of limb (Acute) Other hammer toe (acquired) (Acute) Corns and callosities (Acute) Acute cognitive decline (Acute) Cold sensation of skin (Acute) Neuropathy (Acute) Chronic pain syndrome (Acute) Weening started 11/09/21. Lowered to 15mg daily. 12/10/16 RENEWAL OF CONTROLLED SUBSTANCE AGREEMENT 04/2021-updated agreement/VPMS query and drug screen Diabetes mellitus (Acute) Essential hypertension (Acute 03/16/13) Sexual function problem (Acute) Polyp of colon (Acute 06/25/08) Peripheral neuralgia (Acute) of feet; idiopathic; multiple neuro w/u's; 2 brothers and mother with similar issue...likely genetic origin multiple neuro consults. See 2013 Dr Garcia. Obesity (Acute) Hyperlipidemia (Acute) Complete edentulism, unspecified (Acute) Chronic obstructive lung disease (Acute) Atrial fibrillation (Acute) beginning in 2002, it was initially paroxysmal and cardioverted. It is now chronic. On warfarin Anticoagulated on warfarin (Acute) A-fib; goal 2-3 Hemorrhoids (Acute) Open wound of right heel (Acute) Followed by [facility] Anxiety (Chronic) Medical History (Updated 02/08/23 @ 00:01 by JOSHUA PADRON) Cognitive decline Supratherapeutic INR Surgical History CARDIOVERSION (~2002) Hx of cataract surgery Hx of colonoscopy Repair of inguinal hernia (~1975) right Family History Mother Stroke Father Heart disease Brother Diabetes Brother No problems noted. Maternal Grandfather No problems noted. Paternal Grandfather No problems noted. Maternal Grandmother No problems noted. Son Hypertension Daughter Depression Social History Smoking/Tobacco Use Status: Former Tobacco Use tobacco type: cigarettes Quit Date: 05/26/08 Second Hand Exposure: Yes Smoking risk assessment performed?: Yes Alcohol Intake: current Alcohol Intake frequency: a few times a week Alcohol type: beer Drug use: Occasionally Substance use type: marijuana Details: pt stated to MD no use of tobacco, alcohol, or substance use Caregiver/Support person: No Household members: children Housing: house Communication Needs: None Do you need help understanding health information?: Always Pets and animals: No Sexually active: No Do you think of yourself as: straight/heterosexual Current gender identity: male What is your relationship status?: How often do you talk on the phone with friends or family?: twice per week How often do you get together with friends or relatives?: three or more times per week How often do you attend spiritism or denominational services?: decline to answer Do you belong to any clubs or organized social groups?: yes Panel score (0-1 are the most socially isolated patients): 2 What type of physical activity do you participate in: none Duration: 15-30 minutes/day Frequency: daily Khalida/Latter Day: No preference Special khalida needs: No Seatbelt use: never Helmet use: No Drive intox or ride w/intox wagon driver: No Do you feel safe at home: Yes Do you feel safe in your relationship?: Yes Victim of physical abuse: No Victim of emotional abuse: No Victim of sexual abuse: No Would you like helpful sources: No Time Spent with Patient Time Spent with Patient: 45-69 minutes Time was spent: preparing to see the patient(eg.review tests), ordering medications,tests, procedures, referring, communicating with other health respiratory care assistant, indepentently interpreting results, counseling the patient and care coordination
[2023-02-07] MEDS: Azithromycin 250 MG TAB 500 MG PO (12:43)
--- NOTE | 2023-02-07 12:46 | PDOC.HHF2F_ITS ---
Home Health Referral Home Health Orders Clinical synopsis of why skilled professionals are needed: This is a 72 yo male patient with a PMH of COPD, Afib on coumadin, cognitive decline, DM2, HTN, HLD, anxiety, hypothyroidism, previous alcohol abuse disorder who presented to the [facility] ED on 02/05 for evaluation of fever, confusion, tremors, hallucinations per family. His daughter saw him at appx 1:30 in the afternoon and reports he seemed a little off and she thought he was likely tired.? EMS reported patient was hypoxic with O2 sats. in the 80's at home.? No reported cough/sputum, CP/palpitations, N/V/abd pain. No EDMOND. ? He was noted to have rhonchorous breath sounds. Lab with normal WBC.? Hgb 12.7. Plts 89.? INR 5.2. Na and K normal.? BUN 23.? Creatinine 1.1.? Glucose 142. Mg 1.4. UA unremarkable.? CT head w/o acute processes.? CXR with suspicion for LLL pneumonia. Rocephin and azithromycin initiated in the ED. He was given ativan, his tremulousness and diaphoresis improved significantly. This resolved by HD2. Patient was treated for pneumonia. His vital signs are stable, he is not hypoxic, he is not febrile and he is at baseline mental status. He has two days left of antibiotics, prescriptions have been sent to his pharmacy on file. He was evaluated by physical therapy and they recommend home health PT to help with strengthening and to progress mobility level using least restrictive assistive ambulatory device, assess home safety, identify additional equipment needs, and establish a functional maintenance program that will increase ability of patient to remain at home.?Patient was discharged to home, stable. Medical diagnosis necessitation home health referral: Deconditioning in setting of pneumonia Physical Therapist: Check all that apply Increase strength & endurance for safe mobility at home: Ordered To design/establish home maintenance program: Ordered Fall reduction therapy program for patient with history of frequent falls: Ordered Home safety evaluation and teaching/gait training including stair management (if applicable): Ordered Better Breathing Program: Ordered Door Repairer Bus: Assist with community resources: Ordered Assist with senior care care planning: Ordered Home Bound Status Assistance of another person (Describe assistance and medical necessity): Uses a walker and requires the assistance of another person Encounter Date and Reason: I certify that a FTF encounter for this patient was performed on February 07, 2023 and that such encounter was related to the primary reason the patient requires home health services. The encounter was conducted in the following manner: * By me as the certifying physician, RETAIL CLIENT SOLUTIONS CONSULTANT, PA or * By an inpatient physician, RETAIL CLIENT SOLUTIONS CONSULTANT or PA during an inpatient stay who communicated findings to me, Certification And Authentication I certify that I composed the above information based on my clinical judgment relating to this patient's medical condition and, if applicable, clinical findings communicated to me by the NPP or inpatient physician who performed the FTF encounter. Name of Provider that will be monitoring home health services: David Zuleta
--- NOTE | 2023-02-07 13:48 | PDOC.CMDIS ---
Date of service: 02/07/23 Time of Service: 13:48 LACE Index Scoring Tool Questions: Length of Stay (in days): 2 Was the patient admitted via the E.D.?: Yes Comorbidities: Diabetes w/o Complication and Chronic Pulmonary Disease E.D. Visits: 0 Answers: Total Score: 8 Risk of Readmission: Low Risk Care Management Discharge Plan Reason for Hospitalization: Pneumonia, AMS Discharge Plan: Venkata returned home today with new orders for HH PT. He feels better today and is comfortable with this plan. His son will drive him home via private vehicle. He will follow up with his PCP and discharge plan of care. Patient/Family Education Needs: Review discharge instructions and limitations, discussion of self care needs including ask me three. Services Needed at Discharge: Home Health Care Services (HH PT)
--- NOTE | 2023-02-07 14:45 | PT.INDS ---
PT Notes Visit Reasons: Pneumonmi, Altered Mental Status Patient seen for initial evaluation only, then able to discharge home. Recommend HH PT for continued progress toward goals. See initial evaluation with today's date for specifics on mobility and goals.
[2023-02-10 13:53] LABS: Streptococcus Pneumoniae Ag, U Negative (Negative)
== END 2023-02-07 14:06 | disposition home or self-care (01) | DRG 190 ==
LOC: ER 21:09 → MS 21:12
PROVIDERS: Internal Medicine; Admitting Provider Family Medicine; Emergency Provider Emergency Medicine; PCP Nurse Practitioner Family; Visit Provider Family Medicine
DX: J44.0 Chronic obstructive pulmonary disease with (acute) lower respiratory infection (principal); J18.9 Pneumonia, unspecified organism; F05 Delirium due to known physiological condition; I48.20 Chronic atrial fibrillation, unspecified; Z79.01 Long term (current) use of anticoagulants; Z79.84 Long term (current) use of oral hypoglycemic drugs; R09.02 Hypoxemia; E11.40 Type 2 diabetes mellitus with diabetic neuropathy, unspecified; E03.9 Hypothyroidism, unspecified; I10 Essential (primary) hypertension; E66.9 Obesity, unspecified; Z68.35 Body mass index [BMI] 35.0-35.9, adult; E78.5 Hyperlipidemia, unspecified; R79.1 Abnormal coagulation profile; E83.42 Hypomagnesemia; F10.11 Alcohol abuse, in remission; Z87.891 Personal history of nicotine dependence; G25.0 Essential tremor; G31.84 Mild cognitive impairment of uncertain or unknown etiology
CPT/HCPCS: 36415; 36416; 80053; 80307; 82805; 82962; 84145; 85027; 87040; 87449; 87637; 93005; 94618; 94640; 96361; 96365; 96368; 96375; 97162; 97530; 99285; 70450; 71045; 81003; 81015; 83735; 83880; 84443; 85025; 85610; 85730; 87899; 93010; 94667; 94668; 94760; 99223; 99232; J0456; J0696; J2060; J3475; J7620

== ENCOUNTER 2023-02-10 04:39 | Outpatient (CLI) | payer MEDICARE, SELFPAY ==
[2023-02-10 12:24] LABS: INR 3.2 (0.9-1.1); Prothrombin Time 32.3 sec (9.3-11.0)
[2023-02-10 17:28] LABS: Valproic Acid 65 ug/mL (50-100)
== END 2023-02-10 04:40 | disposition home or self-care (01) ==
LOC: LOS 04:39
PROVIDERS: Psychiatry & Neurology Neurology; PCP Nurse Practitioner Family; Visit Provider Nurse Practitioner Family
DX: I48.91 Unspecified atrial fibrillation
CPT/HCPCS: 36415; 80164; 85610

== ENCOUNTER 2023-02-12 04:07 | Outpatient (CLI) | payer MEDICARE, SELFPAY ==
[2023-02-12 12:29] LABS: INR 2.4 (0.9-1.1)
== END 2023-02-12 04:08 | disposition home or self-care (01) ==
LOC: LOS 04:07
PROVIDERS: PCP Nurse Practitioner Family; Visit Provider Nurse Practitioner Family
DX: I48.91 Unspecified atrial fibrillation (principal); Z79.01 Long term (current) use of anticoagulants
CPT/HCPCS: 36415; 85610

== ENCOUNTER 2023-02-19 02:35 | Outpatient (CLI) | payer MEDICARE, SELFPAY ==
[2023-02-19 14:34] LABS: INR 3.1 (0.9-1.1); Prothrombin Time 30.9 sec (9.3-11.0)
== END 2023-02-19 02:36 | disposition home or self-care (01) ==
LOC: LOS 02:36
PROVIDERS: PCP Nurse Practitioner Family; Visit Provider Nurse Practitioner Family
DX: I48.91 Unspecified atrial fibrillation (principal); Z79.01 Long term (current) use of anticoagulants
CPT/HCPCS: 36415; 85610

== ENCOUNTER 2023-02-26 03:23 | Outpatient (CLI) | payer MEDICARE, SELFPAY ==
[2023-02-26 10:58] LABS: INR 3.3 (0.9-1.1); Prothrombin Time 33.7 sec (9.3-11.0)
== END 2023-02-26 03:24 | disposition home or self-care (01) ==
LOC: LOS 03:23
PROVIDERS: PCP Nurse Practitioner Family; Visit Provider Nurse Practitioner Family
DX: I48.91 Unspecified atrial fibrillation (principal); Z79.01 Long term (current) use of anticoagulants
CPT/HCPCS: 36415; 85610

== ENCOUNTER → 2023-02-27 10:07 | Outpatient (BNVA) | payer MEDICARE, SELFPAY | PROVIDERS: PCP Nurse Practitioner Family; Referring Provider Nurse Practitioner Family; Visit Provider Psychiatry & Neurology Neurology | DX: F41.9 Anxiety disorder, unspecified (principal); E11.9 Type 2 diabetes mellitus without complications; I10 Essential (primary) hypertension; J44.9 Chronic obstructive pulmonary disease, unspecified; G62.9 Polyneuropathy, unspecified; R41.89 Other symptoms and signs involving cognitive functions and awareness | CPT/HCPCS: 99214 ==

== ENCOUNTER 2023-03-07 04:52 | Outpatient (CLI) | payer MEDICARE, SELFPAY ==
[2023-03-07 12:28] LABS: INR 3.8 (0.9-1.1); Prothrombin Time 33.9 sec (9.1-11.1)
== END 2023-03-07 04:53 | disposition home or self-care (01) ==
LOC: LOS 04:57
PROVIDERS: PCP Nurse Practitioner Family; Visit Provider Nurse Practitioner Family
DX: I48.91 Unspecified atrial fibrillation (principal); Z79.01 Long term (current) use of anticoagulants
CPT/HCPCS: 36415; 85610

== ENCOUNTER 2023-03-10 16:34 | Outpatient (CLI) | payer MEDICARE, SELFPAY ==
[2023-03-10 12:20] LABS: INR 3.6 (0.9-1.1); Prothrombin Time 32.4 sec (9.1-11.1)
== END 2023-03-10 16:35 | disposition home or self-care (01) ==
LOC: LOS 16:34
PROVIDERS: PCP Nurse Practitioner Family; Visit Provider Nurse Practitioner Family
DX: I48.91 Unspecified atrial fibrillation (principal)
CPT/HCPCS: 36415; 85610

== ENCOUNTER 2023-03-17 03:50 | Outpatient (CLI) | payer MEDICARE, SELFPAY ==
[2023-03-17 12:43] LABS: INR 1.3 (0.9-1.1)
== END 2023-03-17 03:51 | disposition home or self-care (01) ==
PROVIDERS: PCP Nurse Practitioner Family; Visit Provider Nurse Practitioner Family
DX: I48.91 Unspecified atrial fibrillation (principal)
CPT/HCPCS: 36415; 85610

== ENCOUNTER → 2023-03-18 14:04 | Outpatient (BNVA) | payer MEDICARE, SELFPAY | PROVIDERS: PCP Nurse Practitioner Family; Referring Provider Nurse Practitioner Family; Visit Provider Psychiatry & Neurology Neurology | DX: I95.1 Orthostatic hypotension (principal); F41.9 Anxiety disorder, unspecified; I10 Essential (primary) hypertension; E11.9 Type 2 diabetes mellitus without complications; J44.9 Chronic obstructive pulmonary disease, unspecified; G62.9 Polyneuropathy, unspecified; R41.89 Other symptoms and signs involving cognitive functions and awareness | CPT/HCPCS: 99214 ==

== ENCOUNTER 2023-03-24 03:26 | Outpatient (CLI) | payer MEDICARE, SELFPAY ==
[2023-03-24 12:37] LABS: INR 1.2 (0.9-1.1)
== END 2023-03-24 03:27 | disposition home or self-care (01) ==
PROVIDERS: PCP Nurse Practitioner Family; Visit Provider Nurse Practitioner Family
DX: I48.91 Unspecified atrial fibrillation (principal)
CPT/HCPCS: 36415; 85610

== ENCOUNTER → 2023-03-26 02:18 | Outpatient (CLI) | payer MEDICARE, SELFPAY ==
--- NOTE | 2023-03-26 08:07 | DI.RAD_ITS ---
Exam(s) XR EYE FOREIGN BODY EXAM: XR EYE FOREIGN BODY INDICATION: H/O METAL FOREIGN BODY IN EYE,s00.259A,MRI CLEARANCE. COMPARISON: No exams were available for comparison TECHNIQUE: 2D digital imaging was performed. Three views. FINDINGS: No radiopaque foreign body. No evidence of fracture. No bony erosions. IMPRESSION: No evidence of foreign body. DATA REPOSITORY: RADIATION DOSE DELIVERED:
== END ==
PROVIDERS: PCP Nurse Practitioner Family; Visit Provider Nurse Practitioner Family
DX: S00.25 Superficial foreign body of eyelid and periocular area (principal); X58.XXXD Exposure to other specified factors, subsequent encounter
CPT/HCPCS: 70030

== ENCOUNTER 2023-03-31 01:00 | Outpatient (CLI) | payer MEDICARE, SELFPAY ==
[2023-03-31 12:35] LABS: INR 1.3 (0.9-1.1); Prothrombin Time 12.5 sec (9.1-11.1)
== END 2023-03-31 01:01 | disposition home or self-care (01) ==
LOC: LOS 01:00
PROVIDERS: PCP Nurse Practitioner Family; Visit Provider Nurse Practitioner Family
DX: I48.91 Unspecified atrial fibrillation (principal)
CPT/HCPCS: 36415; 85610

== ENCOUNTER 2023-04-07 04:12 | Outpatient (CLI) | payer MEDICARE, SELFPAY ==
[2023-04-07 13:02] LABS: INR 1.6 (0.9-1.1); Prothrombin Time 15.1 sec (9.1-11.1)
== END 2023-04-07 04:13 | disposition home or self-care (01) ==
LOC: LOS 04:13
PROVIDERS: PCP Nurse Practitioner Family; Visit Provider Nurse Practitioner Family
DX: I48.91 Unspecified atrial fibrillation (principal)
CPT/HCPCS: 36415; 85610

== ENCOUNTER 2023-04-14 04:36 | Outpatient (CLI) | payer MEDICARE, SELFPAY ==
[2023-04-14 12:46] LABS: INR 1.7 (0.9-1.1); Prothrombin Time 16.6 sec (9.1-11.1)
== END 2023-04-14 04:37 | disposition home or self-care (01) ==
LOC: LOS 04:36
PROVIDERS: PCP Nurse Practitioner Family; Visit Provider Nurse Practitioner Family
DX: I48.91 Unspecified atrial fibrillation (principal); Z79.01 Long term (current) use of anticoagulants
CPT/HCPCS: 36415; 85610

== ENCOUNTER 2023-04-21 03:25 | Outpatient (CLI) | payer MEDICARE, SELFPAY ==
[2023-04-21 12:38] LABS: INR 1.8 (0.9-1.1); Prothrombin Time 16.9 sec (9.1-11.1)
== END 2023-04-21 03:26 | disposition home or self-care (01) ==
LOC: LOS 03:25
PROVIDERS: PCP Nurse Practitioner Family; Visit Provider Nurse Practitioner Family
DX: I48.91 Unspecified atrial fibrillation (principal)
CPT/HCPCS: 36415; 85610

== ENCOUNTER 2023-04-28 04:00 | Outpatient (CLI) | payer MEDICARE, SELFPAY ==
[2023-04-28 12:36] LABS: INR 1.9 (0.9-1.1); Prothrombin Time 17.8 sec (9.1-11.1)
== END 2023-04-28 04:01 | disposition home or self-care (01) ==
LOC: LOS 04:00
PROVIDERS: PCP Nurse Practitioner Family; Visit Provider Nurse Practitioner Family
DX: I48.91 Unspecified atrial fibrillation (principal)
CPT/HCPCS: 36415; 85610

== ENCOUNTER 2023-05-05 05:09 | Outpatient (CLI) | payer MEDICARE, SELFPAY ==
[2023-05-05 12:34] LABS: INR 2.6 (0.9-1.1); Prothrombin Time 24.2 sec (9.1-11.1)
== END 2023-05-05 05:10 | disposition home or self-care (01) ==
LOC: LOS 05:09
PROVIDERS: PCP Nurse Practitioner Family; Visit Provider Nurse Practitioner Family
DX: I48.91 Unspecified atrial fibrillation (principal); Z79.01 Long term (current) use of anticoagulants
CPT/HCPCS: 36415; 85610

== ENCOUNTER → 2023-05-14 14:29 | Outpatient (BNVA) | payer MEDICARE, SELFPAY | PROVIDERS: PCP Nurse Practitioner Family; Referring Provider Nurse Practitioner Family; Visit Provider Psychiatry & Neurology Neurology | DX: E11.43 Type 2 diabetes mellitus with diabetic autonomic (poly)neuropathy (principal); E61.1 Iron deficiency; R26.9 Unspecified abnormalities of gait and mobility; F41.9 Anxiety disorder, unspecified; I10 Essential (primary) hypertension; J44.9 Chronic obstructive pulmonary disease, unspecified | CPT/HCPCS: 99214 ==

== ENCOUNTER 2023-05-20 03:35 | Outpatient (CLI) | payer MEDICARE, SELFPAY ==
[2023-05-20 11:48] LABS: INR 2.5 (0.9-1.1); Prothrombin Time 23.1 sec (9.1-11.1)
== END 2023-05-20 03:36 | disposition home or self-care (01) ==
LOC: LBO 03:35
PROVIDERS: PCP Nurse Practitioner Family; Visit Provider Nurse Practitioner Family
DX: I48.91 Unspecified atrial fibrillation (principal); Z79.01 Long term (current) use of anticoagulants
CPT/HCPCS: 36415; 85610

== ENCOUNTER 2023-06-16 04:42 | Outpatient (CLI) | payer MEDICARE, SELFPAY ==
[2023-06-16 12:36] LABS: INR 2.9 (0.9-1.1); Prothrombin Time 26.8 sec (9.1-11.1)
[2023-06-16 13:49] LABS: Ferritin 115 ng/mL (26-388)
== END 2023-06-16 04:43 | disposition home or self-care (01) ==
LOC: LOS 04:42
PROVIDERS: Psychiatry & Neurology Neurology; PCP Nurse Practitioner Family; Visit Provider Nurse Practitioner Family
DX: E61.1 Iron deficiency (principal); I48.91 Unspecified atrial fibrillation; Z79.01 Long term (current) use of anticoagulants
CPT/HCPCS: 36415; 82728; 85610

== ENCOUNTER 2023-07-14 05:06 | Outpatient (CLI) | payer MEDICARE, SELFPAY ==
[2023-07-14 12:36] LABS: Prothrombin Time 37.5 sec (9.1-11.1)
[2023-07-14 13:31] LABS: INR 4.2 (0.9-1.1)
== END 2023-07-14 05:07 | disposition home or self-care (01) ==
LOC: LOS 05:06
PROVIDERS: PCP Nurse Practitioner Family; Visit Provider Nurse Practitioner Family
DX: I48.91 Unspecified atrial fibrillation (principal)
CPT/HCPCS: 36415; 85610

== ENCOUNTER → 2023-07-16 10:53 | Outpatient (BNVA) | payer MEDICARE, SELFPAY | PROVIDERS: PCP Nurse Practitioner Family; Referring Provider Nurse Practitioner Family; Visit Provider Psychiatry & Neurology Neurology | DX: F41.9 Anxiety disorder, unspecified (principal); G62.9 Polyneuropathy, unspecified; R41.89 Other symptoms and signs involving cognitive functions and awareness; R26.9 Unspecified abnormalities of gait and mobility | CPT/HCPCS: 99214 ==

== ENCOUNTER 2023-07-21 04:08 | Outpatient (CLI) | payer MEDICARE, SELFPAY ==
[2023-07-21 12:27] LABS: INR 3.8 (0.9-1.1)
== END 2023-07-21 04:09 | disposition home or self-care (01) ==
LOC: LOS 04:10
PROVIDERS: PCP Nurse Practitioner Family; Visit Provider Nurse Practitioner Family
DX: I48.91 Unspecified atrial fibrillation (principal); Z79.01 Long term (current) use of anticoagulants
CPT/HCPCS: 36415; 85610

== ENCOUNTER 2023-08-15 01:48 | Outpatient (CLI) | payer MEDICARE, SELFPAY ==
[2023-08-15 12:31] LABS: INR 1.4 (0.9-1.1); Prothrombin Time 13.8 sec (9.1-11.1)
== END 2023-08-15 01:49 | disposition home or self-care (01) ==
LOC: LOS 01:48
PROVIDERS: PCP Nurse Practitioner Family; Visit Provider Nurse Practitioner Family
DX: I48.91 Unspecified atrial fibrillation (principal)
CPT/HCPCS: 36415; 85610

== ENCOUNTER 2023-08-22 01:15 | Outpatient (CLI) | payer MEDICARE, SELFPAY ==
[2023-08-22 13:19] LABS: INR 1.6 (0.9-1.1); Prothrombin Time 15.2 sec (9.1-11.1)
== END 2023-08-22 01:16 | disposition home or self-care (01) ==
LOC: LOS 01:16
PROVIDERS: PCP Nurse Practitioner Family; Visit Provider Nurse Practitioner Family
DX: I48.91 Unspecified atrial fibrillation (principal)
CPT/HCPCS: 36415; 85610

== ENCOUNTER 2023-09-02 04:42 | Outpatient (CLI) | payer MEDICARE, SELFPAY ==
[2023-09-02 12:42] LABS: INR 2.8 (0.9-1.1); Prothrombin Time 25.8 sec (9.1-11.1)
== END 2023-09-02 04:43 | disposition home or self-care (01) ==
PROVIDERS: PCP Nurse Practitioner Family; Visit Provider Nurse Practitioner Family
DX: I48.91 Unspecified atrial fibrillation (principal)
CPT/HCPCS: 36415; 85610

== ENCOUNTER 2023-09-08 06:02 | Outpatient (CLI) | payer MEDICARE, SELFPAY ==
[2023-09-08 12:20] LABS: INR 2.7 (0.9-1.1); Prothrombin Time 25.3 sec (9.1-11.1)
== END 2023-09-08 06:03 | disposition home or self-care (01) ==
LOC: LOS 06:03
PROVIDERS: PCP Nurse Practitioner Family; Visit Provider Nurse Practitioner Family
DX: I48.91 Unspecified atrial fibrillation (principal); Z79.01 Long term (current) use of anticoagulants
CPT/HCPCS: 36415; 85610

== ENCOUNTER 2023-09-15 05:12 | Outpatient (CLI) | payer MEDICARE, SELFPAY ==
[2023-09-15 12:32] LABS: INR 3.3 (0.9-1.1); Prothrombin Time 29.9 sec (9.1-11.1)
== END 2023-09-15 05:13 | disposition home or self-care (01) ==
LOC: LOS 05:12
PROVIDERS: PCP Nurse Practitioner Family; Visit Provider Nurse Practitioner Family
DX: I48.91 Unspecified atrial fibrillation (principal); Z79.01 Long term (current) use of anticoagulants
CPT/HCPCS: 36415; 85610

== ENCOUNTER 2023-09-22 05:50 | Outpatient (CLI) | payer MEDICARE, SELFPAY ==
[2023-09-22 12:39] LABS: Prothrombin Time 27.1 sec (9.1-11.1)
== END 2023-09-22 05:51 | disposition home or self-care (01) ==
LOC: LOS 05:50
PROVIDERS: PCP Nurse Practitioner Family; Visit Provider Nurse Practitioner Family
DX: I48.91 Unspecified atrial fibrillation (principal); Z79.01 Long term (current) use of anticoagulants
CPT/HCPCS: 36415; 85610

== ENCOUNTER → 2023-09-24 10:23 | Outpatient (BNVA) | payer MEDICARE, SELFPAY | PROVIDERS: PCP Nurse Practitioner Family; Referring Provider Nurse Practitioner Family; Visit Provider Psychiatry & Neurology Neurology | DX: G62.9 Polyneuropathy, unspecified (principal); F41.9 Anxiety disorder, unspecified; R41.89 Other symptoms and signs involving cognitive functions and awareness; R26.9 Unspecified abnormalities of gait and mobility | CPT/HCPCS: 99214 ==

== ENCOUNTER 2023-09-29 05:16 | Outpatient (CLI) | payer MEDICARE, SELFPAY ==
[2023-09-29 12:38] LABS: INR 2.9 (0.9-1.1); Prothrombin Time 26.9 sec (9.1-11.1)
== END 2023-09-29 05:17 | disposition home or self-care (01) ==
LOC: LOS 05:16
PROVIDERS: PCP Nurse Practitioner Family; Visit Provider Nurse Practitioner Family
DX: I48.91 Unspecified atrial fibrillation (principal); Z79.01 Long term (current) use of anticoagulants
CPT/HCPCS: 36415; 85610

== ENCOUNTER 2023-10-06 05:01 | Outpatient (CLI) | payer MEDICARE, SELFPAY ==
[2023-10-06 12:36] LABS: INR 2.6 (0.9-1.1); Prothrombin Time 23.9 sec (9.1-11.1)
== END 2023-10-06 05:02 | disposition home or self-care (01) ==
LOC: LOS 05:01
PROVIDERS: PCP Nurse Practitioner Family; Visit Provider Nurse Practitioner Family
DX: I48.91 Unspecified atrial fibrillation (principal); Z79.01 Long term (current) use of anticoagulants
CPT/HCPCS: 36415; 85610

== ENCOUNTER 2023-10-24 00:46 | Outpatient (CLI) | payer MEDICARE, SELFPAY ==
[2023-10-24 10:47] LABS: INR 2.2 (0.9-1.1); Prothrombin Time 20.5 sec (9.1-11.1)
== END 2023-10-24 00:47 | disposition home or self-care (01) ==
LOC: LOS 00:47
PROVIDERS: PCP Nurse Practitioner Family; Visit Provider Nurse Practitioner Family
DX: I48.91 Unspecified atrial fibrillation (principal)
CPT/HCPCS: 36415; 85610

== ENCOUNTER → 2023-12-01 10:41 | Outpatient (BNVA) | payer MEDICARE, SELFPAY | PROVIDERS: PCP Nurse Practitioner Family; Visit Provider Psychiatry & Neurology Neurology | DX: G62.9 Polyneuropathy, unspecified (principal); R41.89 Other symptoms and signs involving cognitive functions and awareness; F41.9 Anxiety disorder, unspecified; R26.9 Unspecified abnormalities of gait and mobility | CPT/HCPCS: 99214 ==

== ENCOUNTER 2023-12-02 04:55 | Outpatient (CLI) | payer MEDICARE, SELFPAY ==
[2023-12-02 12:29] LABS: Prothrombin Time 18.9 sec (9.1-11.1)
== END 2023-12-02 04:56 | disposition home or self-care (01) ==
LOC: LOS 04:55
PROVIDERS: PCP Nurse Practitioner Family; Visit Provider Nurse Practitioner Family
DX: I48.91 Unspecified atrial fibrillation (principal); Z79.01 Long term (current) use of anticoagulants
CPT/HCPCS: 36415; 85610

== ENCOUNTER 2024-01-02 01:06 | Outpatient (CLI) | payer MEDICARE, SELFPAY | END 2024-01-02 01:07 | disposition home or self-care (01) | LOC: LOS 01:06 | PROVIDERS: PCP Nurse Practitioner Family; Visit Provider Nurse Practitioner Family | DX: I48.91 Unspecified atrial fibrillation (principal) | CPT/HCPCS: 36415; 85610 ==

== ENCOUNTER → 2024-02-02 10:35 | Outpatient (BNVA) | payer MEDICARE, SELFPAY | PROVIDERS: PCP Nurse Practitioner Family; Visit Provider Psychiatry & Neurology Neurology | DX: F41.9 Anxiety disorder, unspecified (principal); R26.9 Unspecified abnormalities of gait and mobility; G47.61 Periodic limb movement disorder; R41.89 Other symptoms and signs involving cognitive functions and awareness; G62.9 Polyneuropathy, unspecified | CPT/HCPCS: 99215 ==

== ENCOUNTER 2024-02-04 03:49 | Outpatient (CLI) | payer MEDICARE, SELFPAY ==
[2024-02-04 12:33] LABS: INR 2.5 (0.9-1.1); Prothrombin Time 23.1 sec (9.1-11.1)
== END 2024-02-04 03:50 | disposition home or self-care (01) ==
LOC: LOS 03:49
PROVIDERS: PCP Nurse Practitioner Family; Visit Provider Nurse Practitioner Family
DX: I48.91 Unspecified atrial fibrillation (principal)
CPT/HCPCS: 36415; 85610

== ENCOUNTER → 2024-04-05 10:25 | Outpatient (BNVA) | payer MEDICARE, SELFPAY | PROVIDERS: PCP Nurse Practitioner Family; Visit Provider Psychiatry & Neurology Neurology | DX: G30.9 Alzheimer's disease, unspecified (principal); F02.80 Dementia in other diseases classified elsewhere, unspecified severity, without behavioral disturbance, psychotic disturbance, mood disturbance, and anxiety; F41.9 Anxiety disorder, unspecified; R26.9 Unspecified abnormalities of gait and mobility; G47.61 Periodic limb movement disorder; G62.9 Polyneuropathy, unspecified | CPT/HCPCS: 99214 ==

== ENCOUNTER 2024-04-15 03:43 | Outpatient (CLI) | payer MEDICARE, SELFPAY ==
[2024-04-15 13:03] LABS: INR 1.1 (0.9-1.1); Prothrombin Time 10.7 sec (9.1-11.1)
== END 2024-04-15 03:44 | disposition home or self-care (01) ==
LOC: LOS 03:43
PROVIDERS: PCP Nurse Practitioner Family; Visit Provider Nurse Practitioner Family
DX: I48.91 Unspecified atrial fibrillation (principal)
CPT/HCPCS: 36415; 85610

== ENCOUNTER 2024-04-28 02:38 | Outpatient (CLI) | payer MEDICARE, SELFPAY ==
[2024-04-28 12:31] LABS: INR 1.8 (0.9-1.1); Prothrombin Time 17.2 sec (9.1-11.1)
== END 2024-04-28 02:39 | disposition home or self-care (01) ==
LOC: LOS 02:38
PROVIDERS: PCP Nurse Practitioner Family; Visit Provider Nurse Practitioner Family
DX: I48.91 Unspecified atrial fibrillation (principal)
CPT/HCPCS: 36415; 85610

== ENCOUNTER 2024-05-05 03:01 | Outpatient (CLI) | payer MEDICARE, SELFPAY ==
[2024-05-05 12:33] LABS: INR 1.8 (0.9-1.1); Prothrombin Time 17.2 sec (9.1-11.1)
== END 2024-05-05 03:02 | disposition home or self-care (01) ==
LOC: LOS 03:02
PROVIDERS: PCP Nurse Practitioner Family; Visit Provider Nurse Practitioner Family
DX: I48.91 Unspecified atrial fibrillation (principal)
CPT/HCPCS: 36415; 85610

== ENCOUNTER 2024-05-13 02:48 | Outpatient (CLI) | payer MEDICARE, SELFPAY ==
[2024-05-13 12:41] LABS: INR 1.7 (0.9-1.1); Prothrombin Time 16.6 sec (9.1-11.1)
== END 2024-05-13 02:49 | disposition home or self-care (01) ==
LOC: LOS 02:48
PROVIDERS: PCP Nurse Practitioner Family; Visit Provider Nurse Practitioner Family
DX: I48.91 Unspecified atrial fibrillation (principal)
CPT/HCPCS: 36415; 85610

== ENCOUNTER 2024-05-25 02:29 | Outpatient (CLI) | payer MEDICARE, SELFPAY ==
[2024-05-25 12:39] LABS: INR 3.1 (0.9-1.1); Prothrombin Time 27.9 sec (9.1-11.1)
== END 2024-05-25 02:30 | disposition home or self-care (01) ==
LOC: LOS 02:30
PROVIDERS: PCP Nurse Practitioner Family; Visit Provider Nurse Practitioner Family
DX: I48.91 Unspecified atrial fibrillation (principal)
CPT/HCPCS: 36415; 85610

== ENCOUNTER → 2024-06-03 13:17 | Outpatient (BNVA) | payer MEDICARE, SELFPAY | PROVIDERS: PCP Nurse Practitioner Family; Referring Provider Nurse Practitioner Family; Visit Provider Psychiatry & Neurology Neurology | DX: G30.9 Alzheimer's disease, unspecified (principal); F02.80 Dementia in other diseases classified elsewhere, unspecified severity, without behavioral disturbance, psychotic disturbance, mood disturbance, and anxiety; R32 Unspecified urinary incontinence; G62.9 Polyneuropathy, unspecified; F41.9 Anxiety disorder, unspecified; R26.9 Unspecified abnormalities of gait and mobility; G47.61 Periodic limb movement disorder | CPT/HCPCS: 99214 ==

== ENCOUNTER 2024-06-08 12:50 | Outpatient (CLI) | payer MEDICARE, SELFPAY ==
[2024-06-08 13:03] LABS: INR 3.5 (0.9-1.1); Prothrombin Time 32.4 sec (9.1-11.1)
== END 2024-06-08 12:51 | disposition home or self-care (01) ==
LOC: LOS 12:50
PROVIDERS: PCP Nurse Practitioner Family; Visit Provider Nurse Practitioner Family
DX: I48.91 Unspecified atrial fibrillation (principal)
CPT/HCPCS: 36415; 85610

== ENCOUNTER 2024-06-17 03:51 | Outpatient (CLI) | payer MEDICARE, SELFPAY ==
[2024-06-17 13:00] LABS: INR 2.4 (0.9-1.1); Prothrombin Time 22.5 sec (9.1-11.1)
== END 2024-06-17 03:52 | disposition home or self-care (01) ==
LOC: LOS 03:51
PROVIDERS: PCP Nurse Practitioner Family; Visit Provider Nurse Practitioner Family
DX: I48.91 Unspecified atrial fibrillation (principal)
CPT/HCPCS: 36415; 85610

== ENCOUNTER 2024-06-24 04:09 | Outpatient (CLI) | payer MEDICARE, SELFPAY ==
[2024-06-24 13:01] LABS: Prothrombin Time 27.6 sec (9.1-11.1)
== END 2024-06-24 04:10 | disposition home or self-care (01) ==
LOC: LOS 04:10
PROVIDERS: PCP Nurse Practitioner Family; Visit Provider Nurse Practitioner Family
DX: I48.91 Unspecified atrial fibrillation (principal)
CPT/HCPCS: 36415; 85610

== ENCOUNTER 2024-07-02 01:23 | Outpatient (CLI) | payer MEDICARE, SELFPAY ==
[2024-07-02 12:51] LABS: Prothrombin Time 27.6 sec (9.1-11.1)
== END 2024-07-02 01:24 | disposition home or self-care (01) ==
LOC: LOS 01:23
PROVIDERS: PCP Nurse Practitioner Family; Visit Provider Nurse Practitioner Family
DX: I48.91 Unspecified atrial fibrillation (principal)
CPT/HCPCS: 36415; 85610

== ENCOUNTER 2024-07-13 04:35 | Outpatient (CLI) | payer MEDICARE, SELFPAY ==
[2024-07-13 12:49] LABS: INR 3.1 (0.9-1.1); Prothrombin Time 28.8 sec (9.1-11.1)
== END 2024-07-13 04:36 | disposition home or self-care (01) ==
LOC: LOS 04:35
PROVIDERS: PCP Nurse Practitioner Family; Visit Provider Nurse Practitioner Family
DX: I48.91 Unspecified atrial fibrillation (principal)
CPT/HCPCS: 36415; 85610

== ENCOUNTER 2024-07-22 03:00 | Outpatient (CLI) | payer MEDICARE, SELFPAY ==
[2024-07-22 12:47] LABS: Prothrombin Time 19.4 sec (9.1-11.1)
== END 2024-07-22 03:01 | disposition home or self-care (01) ==
LOC: LOS 03:00
PROVIDERS: PCP Nurse Practitioner Family; Visit Provider Emergency Medicine
DX: I48.91 Unspecified atrial fibrillation (principal)
CPT/HCPCS: 36415; 85610

== ENCOUNTER → 2024-07-29 11:17 | Outpatient (BNVA) | payer MEDICARE, SELFPAY | PROVIDERS: PCP Nurse Practitioner Family; Referring Provider Nurse Practitioner Family; Visit Provider Psychiatry & Neurology Neurology | DX: G62.9 Polyneuropathy, unspecified (principal); F41.9 Anxiety disorder, unspecified; R41.89 Other symptoms and signs involving cognitive functions and awareness; R26.9 Unspecified abnormalities of gait and mobility; G47.61 Periodic limb movement disorder; G30.9 Alzheimer's disease, unspecified; F02.80 Dementia in other diseases classified elsewhere, unspecified severity, without behavioral disturbance, psychotic disturbance, mood disturbance, and anxiety; R32 Unspecified urinary incontinence | CPT/HCPCS: 99213 ==

== ENCOUNTER 2024-07-30 00:49 | Outpatient (CLI) | payer MEDICARE, SELFPAY ==
[2024-07-30 12:29] LABS: INR 2.6 (0.9-1.1); Prothrombin Time 24.4 sec (9.1-11.1)
== END 2024-07-30 00:50 | disposition home or self-care (01) ==
LOC: LOS 00:49
PROVIDERS: PCP Nurse Practitioner Family; Visit Provider Nurse Practitioner Family
DX: I48.91 Unspecified atrial fibrillation (principal)
CPT/HCPCS: 36415; 85610

== ENCOUNTER 2024-08-12 13:15 | Outpatient (CLI) | payer MEDICARE, SELFPAY ==
[2024-08-12 12:30] LABS: INR 1.9 (0.9-1.1); Prothrombin Time 18.5 sec (9.1-11.1)
== END 2024-08-12 13:16 | disposition home or self-care (01) ==
LOC: LOS 13:16
PROVIDERS: PCP Nurse Practitioner Family; Visit Provider Nurse Practitioner Family
DX: I48.91 Unspecified atrial fibrillation (principal)
CPT/HCPCS: 36415; 85610

== ENCOUNTER 2024-08-23 09:19 | Outpatient (CLI) | payer MEDICARE, SELFPAY ==
[2024-08-23 13:15] LABS: Anion Gap 6.3 mmol/L (3-11); BUN 23 mg/dL (7-18); CO2 30.7 mmol/L (21.0-32.0); CREATININE 0.9 mg/dL (0.70-1.30); Calcium 9.3 mg/dL (8.5-10.1); Calculated LDL 137 mg/dL (<100); Chloride 105 mmol/L (98-107); Cholesterol 244 mg/dL (<200); Estimated GFR 89.07 (mL/min/1.73m2); Glucose 92 mg/dL (74-106); HDL Cholesterol 53 mg/dL (>or=40); Sodium 142 mmol/L (136-145); TSH (W/Ref FT4) 1.39 uIU/mL (0.36-3.74); Triglyceride 270 mg/dL (<150)
[2024-08-23 13:17] LABS: Prothrombin Time 19.3 sec (9.1-11.1)
== END 2024-08-23 09:20 | disposition home or self-care (01) ==
LOC: LOS 09:23
PROVIDERS: PCP Nurse Practitioner Family; Visit Provider Nurse Practitioner Family
DX: E03.9 Hypothyroidism, unspecified (principal); Z13.6 Encounter for screening for cardiovascular disorders; Z12.5 Encounter for screening for malignant neoplasm of prostate; Z13.1 Encounter for screening for diabetes mellitus; I48.91 Unspecified atrial fibrillation
CPT/HCPCS: 36415; 80048; 80061; 84153; 84443; 85610

== ENCOUNTER 2024-08-31 08:36 | Outpatient (CLI) | payer MEDICARE, SELFPAY ==
[2024-08-31 13:22] LABS: INR 1.9 (0.9-1.1); Prothrombin Time 18.2 sec (9.1-11.1)
== END 2024-08-31 08:37 | disposition home or self-care (01) ==
LOC: LOS 08:37
PROVIDERS: PCP Nurse Practitioner Family; Visit Provider Nurse Practitioner Family
DX: I48.91 Unspecified atrial fibrillation (principal)
CPT/HCPCS: 36415; 85610

== ENCOUNTER 2024-09-06 03:07 | Outpatient (CLI) | payer MEDICARE, SELFPAY ==
[2024-09-06 12:29] LABS: INR 2.3 (0.9-1.1); Prothrombin Time 21.9 sec (9.1-11.1)
== END 2024-09-06 03:08 | disposition home or self-care (01) ==
PROVIDERS: PCP Nurse Practitioner Family; Visit Provider Nurse Practitioner Family
DX: I48.91 Unspecified atrial fibrillation (principal)
CPT/HCPCS: 36415; 85610

== ENCOUNTER 2024-09-10 00:49 | Outpatient (CLI) | payer MEDICARE, SELFPAY ==
[2024-09-10 12:49] LABS: INR 1.9 (0.9-1.1); Prothrombin Time 18.4 sec (9.1-11.1)
== END 2024-09-10 00:50 | disposition home or self-care (01) ==
LOC: LOS 00:49
PROVIDERS: PCP Nurse Practitioner Family; Visit Provider Nurse Practitioner Family
DX: I48.91 Unspecified atrial fibrillation (principal)
CPT/HCPCS: 36415; 85610

== ENCOUNTER 2024-09-17 00:52 | Outpatient (CLI) | payer MEDICARE, SELFPAY ==
[2024-09-17 12:58] LABS: INR 2.2 (0.9-1.1); Prothrombin Time 20.9 sec (9.1-11.1)
== END 2024-09-17 00:53 | disposition home or self-care (01) ==
LOC: LOS 00:52
PROVIDERS: PCP Nurse Practitioner Family; Visit Provider Nurse Practitioner Family
DX: I48.91 Unspecified atrial fibrillation (principal)
CPT/HCPCS: 36415; 85610

== ENCOUNTER 2024-09-24 02:59 | Outpatient (CLI) | payer MEDICARE, SELFPAY ==
[2024-09-24 12:52] LABS: INR 1.9 (0.9-1.1); Prothrombin Time 18.6 sec (9.1-11.1)
== END 2024-09-24 03:00 | disposition home or self-care (01) ==
LOC: LOS 03:00
PROVIDERS: PCP Nurse Practitioner Family; Visit Provider Nurse Practitioner Family
DX: I48.91 Unspecified atrial fibrillation (principal)
CPT/HCPCS: 36415; 85610

== ENCOUNTER 2024-10-01 01:23 | Outpatient (CLI) | payer MEDICARE, SELFPAY ==
[2024-10-01 12:41] LABS: INR 1.5 (0.9-1.1); Prothrombin Time 14.8 sec (9.1-11.1)
== END 2024-10-01 01:24 | disposition home or self-care (01) ==
LOC: LOS 01:23
PROVIDERS: PCP Nurse Practitioner Family; Visit Provider Nurse Practitioner Family
DX: I48.91 Unspecified atrial fibrillation (principal)
CPT/HCPCS: 36415; 85610

== ENCOUNTER → 2024-10-05 09:18 | Outpatient (BNVA) | payer MEDICARE, SELFPAY | PROVIDERS: PCP Nurse Practitioner Family; Referring Provider Nurse Practitioner Family; Visit Provider Psychiatry & Neurology Neurology | DX: G30.9 Alzheimer's disease, unspecified (principal); F02.80 Dementia in other diseases classified elsewhere, unspecified severity, without behavioral disturbance, psychotic disturbance, mood disturbance, and anxiety; R32 Unspecified urinary incontinence; R41.89 Other symptoms and signs involving cognitive functions and awareness; F41.9 Anxiety disorder, unspecified; G62.9 Polyneuropathy, unspecified; R26.9 Unspecified abnormalities of gait and mobility; G47.61 Periodic limb movement disorder; I10 Essential (primary) hypertension; E11.9 Type 2 diabetes mellitus without complications; J44.9 Chronic obstructive pulmonary disease, unspecified | CPT/HCPCS: 99214 ==

== ENCOUNTER 2024-12-07 16:48 | Outpatient (REF) | payer MEDICARE, SELFPAY ==
[2024-12-07 16:51] LABS: Glucose Negative (Negative)
[2024-12-07 16:58] LABS: C & S Indicated? No; RBC Negative HPF (0-2); WBC Negative HPF (0-5)
[2024-12-07 17:31] LABS: Microalb ug/mg Crea 136.2 ug/mg Cr
== END 2024-12-07 16:49 | disposition home or self-care (01) ==
LOC: NCHCN 16:48
PROVIDERS: PCP Nurse Practitioner Family; Visit Provider Nurse Practitioner Family
DX: N39.498 Other specified urinary incontinence (principal); I10 Essential (primary) hypertension
CPT/HCPCS: 81003; 81015; 82043; 82570

== ENCOUNTER → 2024-12-23 10:56 | Outpatient (BNVA) | payer MEDICARE, SELFPAY | PROVIDERS: PCP Nurse Practitioner Family; Referring Provider Nurse Practitioner Family; Visit Provider Nurse Practitioner Gerontology | DX: N39.41 Urge incontinence (principal); G30.9 Alzheimer's disease, unspecified; F02.80 Dementia in other diseases classified elsewhere, unspecified severity, without behavioral disturbance, psychotic disturbance, mood disturbance, and anxiety; Z80.42 Family history of malignant neoplasm of prostate; R39.9 Unspecified symptoms and signs involving the genitourinary system | CPT/HCPCS: 99215; 51798 ==

== ENCOUNTER 2025-01-05 01:37 | Outpatient (CLI) | payer MEDICARE, SELFPAY ==
--- NOTE | 2025-01-05 11:30 | DI.US_ITS ---
Exam(s) US RENAL EXAM: US RENAL CLINICAL HISTORY: ? hydronephrosis,urinary incontinence,urge incontinence. TECHNIQUE: Young scale, color and spectral Doppler were used. COMPARISON: CT ABD PELVIS WITH CONTRAST from 08/16/2009 FINDINGS: Renal size in cm: Right: 11.3. Left: 11.6. Echogenicity: Normal. Hydronephrosis: No. Cyst or mass: No. Nephrolithiasis: No. Other findings: None. Bladder:Normal. Ureteral jets: Right: Not seen on this examination. Left: Not seen on this examination. Prevoid vol:102 cc Postvoid vol:The patient was unable to void during the examination. Prostate: The prostate gland could not adequately be visualized on this examination. Renal color flow: Symmetric and within normal limits. IMPRESSION: No evidence of nephrolithiasis or hydronephrosis. DATA REPOSITORY:
== END 2025-01-05 01:57 ==
LOC: DI 01:37
PROVIDERS: PCP Nurse Practitioner Family; Visit Provider Nurse Practitioner Gerontology
DX: R32 Unspecified urinary incontinence (principal)
CPT/HCPCS: 76770

== ENCOUNTER → 2025-01-11 09:12 | Outpatient (BNVA) | payer MEDICARE, SELFPAY | PROVIDERS: PCP Nurse Practitioner Family; Referring Provider Nurse Practitioner Family; Visit Provider Nurse Practitioner Gerontology | DX: R32 Unspecified urinary incontinence (principal) | CPT/HCPCS: 99213 ==

== ENCOUNTER 2025-03-10 13:11 | Outpatient (REF) | payer MEDICARE, SELFPAY ==
[2025-03-10 14:40] LABS: Abs Immature Grans 0.03 10^3/uL (0.0-0.06); HCT 49.4 % (40.0-50.0); HGB 15.5 g/dL (13.5-17.5); Immature Grans % 0.4 %; MCH 31.6 pg (27.0-33.0); MCHC 31.4 % (32.0-36.0); MCV 101 fL (80-95); MPV 11.6 fL (8.0-11.0); Platelet Count 144 10^3/uL (130-400); RBC 4.90 10^6/uL (4.36-5.78); RDW 13.4 % (11.8-14.1); RDW-SD 50.0 fL; WBC 7.83 10^3/uL (4.4-10.8)
[2025-03-10 15:50] LABS: ALT 17 U/L (16-63); AST 8 U/L (15-37); Albumin 3.9 g/dL (3.4-5.0); Alkaline Phosphatase 93 U/L (46-116); Anion Gap 7.5 mmol/L (3-11); BUN 25 mg/dL (7-18); Bilirubin, Total 0.6 mg/dL (0.2-1.0); CO2 35.5 mmol/L (21.0-32.0); Calcium 8.8 mg/dL (8.5-10.1); Calculated LDL 93 mg/dL (<100); Chloride 98 mmol/L (98-107); Cholesterol 191 mg/dL (<200); Estimated GFR 78.00 (mL/min/1.73m2); Glucose 112 mg/dL (74-106); HDL Cholesterol 39 mg/dL (>or=40); Magnesium 1.9 mg/dL (1.8-2.4); Potassium 4.5 mmol/L (3.5-5.1); Sodium 141 mmol/L (136-145); TSH (W/Ref FT4) 1.70 uIU/mL (0.36-3.74); Total Protein 7.3 g/dL (6.4-8.2); Triglyceride 297 mg/dL (<150); Vitamin B12 961 pg/mL (193-986)
== END 2025-03-10 13:12 | disposition home or self-care (01) ==
LOC: NCHCN 13:11
PROVIDERS: PCP Nurse Practitioner Family; Visit Provider Nurse Practitioner Family
DX: E03.9 Hypothyroidism, unspecified (principal); I10 Essential (primary) hypertension; E11.9 Type 2 diabetes mellitus without complications; Z86.2 Personal history of diseases of the blood and blood-forming organs and certain disorders involving the immune mechanism
CPT/HCPCS: 80053; 80061; 82607; 83735; 84443; 85025

== ENCOUNTER 2025-03-23 14:53 | Outpatient (REF) | payer MEDICARE, SELFPAY ==
[2025-03-23 17:58] LABS: Anion Gap 4.7 mmol/L (3-11); BUN 28 mg/dL (7-18); CO2 37.3 mmol/L (21.0-32.0); Calcium 8.3 mg/dL (8.5-10.1); Chloride 101 mmol/L (98-107); Estimated GFR 69.57 (mL/min/1.73m2); Glucose 144 mg/dL (74-106); Potassium 5.0 mmol/L (3.5-5.1); Sodium 143 mmol/L (136-145)
== END 2025-03-23 14:54 | disposition home or self-care (01) ==
LOC: NCHCN 14:53
PROVIDERS: PCP Nurse Practitioner Family; Visit Provider Nurse Practitioner Family
DX: I10 Essential (primary) hypertension (principal)
CPT/HCPCS: 80048

== ENCOUNTER 2025-05-08 00:32 | Inpatient (IN) | payer MEDICARE, SELFPAY ==
[2025-05-08] VITALS (87 sets, daily range): BP systolic 86–136; BP diastolic 53–89; PULSE 64–105; RESP 12–34; TEMP 36.2–37.8; O2SAT 86–97
--- NOTE | 2025-05-08 00:30 | RT.EKG_ITS ---
APPROVED REPORT Exam: Resting ECG Reason for Exam: Resp Patient Location: E HR:91 bpm ECG Measurements Heart Rate 91 AXIS OH [id number] P [id number] QRSd 102 QRS 93 QT 362 T 67 QTc 446 Conclusion Atrial fibrillation...V-rate 78-114, irreg A-activity Right axis deviation...QRS axis ( 91,269) no ST segment or T wave abnormalities to suggest occlusive CT
--- NOTE | 2025-05-08 00:45 | DI.RAD_ITS ---
Exam(s) XR PORTABLE CHEST AP EXAM: XR PORTABLE CHEST AP CLINICAL HISTORY: respiratory failure TECHNIQUE: 2D digital imaging was performed. COMPARISON: CR CHEST 2 VIEWS PA,LAT from 10/23/2016 CR XR PORTABLE CHEST AP from 02/05/2023 FINDINGS: LUNGS: Suboptimally inflated. Increased densities noted at the left lung base, atelectasis versus infiltrate. Under increased interstitial markings. HEART: Enlarged. There is pulmonary venous congestion. AORTA: Normal diameter. BONES: Unremarkable for age. Soft tissues: Unremarkable. IMPRESSION: Cardiomegaly. The lungs are suboptimally inflated but there is increased interstitial markings and vascular prominence suspicious for CHF. Increased densities are present at the left lung base which could represent atelectasis versus infiltrate. The preliminary [facility] report was reviewed. DATA REPOSITORY: RADIATION DOSE DELIVERED:
[2025-05-08] MEDS: Naloxone 0.4 MG/ML VIAL IVP (00:51)
[2025-05-08 01:06] LABS: TCO2 (Venous) 39 mmol/L (24-29); pO2 (Venous) 83 mmHg
[2025-05-08 01:07] LABS: BE (Venous) 9 mmol/L (-2-3); HCO3 (Venous) 37 mmol/L (23-28); O2 Sat (Venous) 93 %
[2025-05-08 01:08] LABS: pCO2 (Venous) 88 mmHg (41-51)
[2025-05-08 01:12] LABS: Abs Immature Grans 0.04 10^3/uL (0.0-0.06); HCT 50.1 % (40.0-50.0); HGB 14.7 g/dL (13.5-17.5); Immature Grans % 0.5 %; MCH 29.9 pg (27.0-33.0); MCHC 29.3 % (32.0-36.0); MCV 102 fL (80-95); MPV 12.1 fL (8.0-11.0); Platelet Count 122 10^3/uL (130-400); RBC 4.91 10^6/uL (4.36-5.78); RDW 14.2 % (11.8-14.1); RDW-SD 54.1 fL; WBC 7.91 10^3/uL (4.4-10.8)
--- NOTE | 2025-05-08 01:21 | W.ED.GENAD ---
Discharge Plan Disposition Patient Disposition: Admit to [facility] Condition: Critical Discharge Details Clinical Impression: Acute hypercapnic respiratory failure, Acute hypoxic respiratory failure, Congestive heart failure, Hyperkalemia, Altered mental status Primary Care Provider: David Zuleta ED Provider: Manuela Mancia Home Meds and New Rx's Prescriptions: No Action tramadol 50 mg tablet 50 mg PO QHS Qty: 28 0RF trazodone 100 mg tablet 100 mg PO QHS Qty: 90 3RF vitamin E mixed 400 unit capsule 400 unit PO BID Rx Instructions: with meals per Cottage discharge sildenafil [Viagra] 50 mg tablet 50 mg PO DAILY PRN (Reason: sexual activity) Qty: 7 3RF Rx Instructions: administer 30 minutes to 4 hours before activity losartan [Cozaar] 50 mg tablet 50 mg PO DAILY Qty: 90 3RF metformin 1,000 mg tablet 1,000 mg PO BID Qty: 180 3RF pravastatin 40 mg tablet 40 mg PO DAILY Qty: 90 3RF ergocalciferol (vitamin D2) 1,250 mcg (50,000 unit) capsule 1,250 mcg PO QWEEK Qty: 90 3RF pregabalin [Lyrica] 100 mg capsule 100 mg PO TID Qty: 270 1RF Xarelto 20 mg tablet 20 mg PO DAILY Qty: 90 3RF Rx Instructions: must administer with evening meal levothyroxine [Synthroid] 25 mcg tablet 25 mcg PO DAILY Qty: 90 3RF duloxetine 60 mg capsule,delayed release(DR/EC) 60 mg PO BID Qty: 180 3RF cyanocobalamin (vitamin B-12) 1,000 mcg capsule 1,000 mcg PO DAILY Qty: 90 3RF metoprolol succinate 100 mg tablet extended release 24 hr 100 mg PO DAILY Qty: 90 3RF mirabegron [Myrbetriq] 25 mg tablet extended release 24 hr 25 mg PO DAILY Qty: 90 3RF donepezil 10 mg tablet 10 mg PO QHS Qty: 90 3RF memantine 10 mg tablet 10 mg PO BID Qty: 180 3RF ropinirole 0.25 mg tablet 0.25 mg PO TID Qty: 270 3RF Trulicity 4.5 mg/0.5 mL pen injector 4.5 mg SUBCUT .weekly Rx Instructions: SATURDAYS Refresh Relieva 0.5-0.9 % drops 1 drp ophthalmic (eye) TID Patient Comments: Instill 1 drop into both eyes three times a day OcuSoft Lid Scrub Plus Pads, Medicated 1 pad TOPICAL DAILY AM Patient Comments: Apply 1 pad to BOTH EYELIDS very morning olopatadine 0.2 % drops 1 drp ophthalmic (eye) DAILY Patient Comments: Instill 1 drop into both eyes every morning losartan 100 mg tablet 100 mg PO DAILY HPI General Mode of arrival: EMS. Date/Time Provider Initiated Documentation: 05/08/25 00:44. Limitations to Documentation: altered mental status. Information obtained by: EMS and old records reviewed. HPI Narrative: 74yo M with hx Alzheimer's dementia, afib, T2DM, HTN, HLD, hypothyroidism, obesity, presenting via EMS from [facility] for respiratory distress. They were called to seen for a lift assist after patient reportedly slid out of bed (denied HS or LOC). Noted to be hypoxic on scene to high 70's on room air; improved to 90's on 100% NRB. He was noted to have some grunting respirations. Patient states only I feel fine in response to questioning. Related Data Home Medications ?Medication ?Instructions ?Recorded ?Confirmed vitamin E mixed 400 unit capsule 400 unit PO BID 08/08/23 05/08/25 sildenafil 50 mg tablet (Viagra) 50 mg PO DAILY PRN sexual activity 09/08/23 05/08/25 Held on 05/08/25. #7 tabs Instructions: Changed by Provider losartan 50 mg tablet (Cozaar) 50 mg PO DAILY #90 tab-caps 11/13/23 05/08/25 Held on 05/08/25. Instructions: Changed by Provider metformin 1,000 mg tablet 1,000 mg PO BID #180 tabs 03/04/24 05/08/25 Held on 05/08/25. Instructions: Changed by Provider pravastatin 40 mg tablet 40 mg PO DAILY #90 tab-caps 06/30/24 05/08/25 tramadol 50 mg tablet 50 mg PO QHS #28 tabs 08/16/24 05/08/25 Held on 05/08/25. Instructions: Changed by Provider ergocalciferol (vitamin D2) 1,250 1,250 mcg PO QWEEK #90 caps 09/22/24 05/08/25 mcg (50,000 unit) capsule pregabalin 100 mg capsule (Lyrica) 100 mg PO TID #270 caps 09/23/24 05/08/25 trazodone 100 mg tablet 100 mg PO QHS #90 tabs 10/05/24 05/08/25 rivaroxaban 20 mg tablet (Xarelto) 20 mg PO DAILY #90 tabs 11/11/24 05/08/25 cyanocobalamin (vitamin B-12) 1,000 mcg PO DAILY #90 caps 11/22/24 05/08/25 1,000 mcg capsule duloxetine 60 mg capsule,delayed 60 mg PO BID #180 caps 11/22/24 05/08/25 release levothyroxine 25 mcg tablet 25 mcg PO DAILY #90 tab-caps 11/22/24 05/08/25 (Synthroid) metoprolol succinate 100 mg 100 mg PO DAILY #90 tabs 11/22/24 05/08/25 tablet,extended release 24 hr mirabegron 25 mg tablet,extended 25 mg PO DAILY #90 tabs 11/22/24 05/08/25 release 24 hr (Myrbetriq) donepezil 10 mg tablet 10 mg PO QHS #90 tabs 12/07/24 05/08/25 memantine 10 mg tablet 10 mg PO BID #180 tabs 12/07/24 05/08/25 ropinirole 0.25 mg tablet 0.25 mg PO TID #270 tabs 12/07/24 05/08/25 carboxymethylcellulose 0.5 1 drp ophthalmic (eye) TID 05/08/25 05/08/25 %-glycerin 0.9 % eye drops (Refresh Relieva) dulaglutide 4.5 mg/0.5 mL 4.5 mg subcut .weekly 05/08/25 05/08/25 subcutaneous pen injector (Trulicity) eyelid cleanser combination 3 1 pad topical DAILY AM 05/08/25 05/08/25 (OcuSoft Lid Scrub Plus topical pads) losartan 100 mg tablet 100 mg PO DAILY 05/08/25 05/08/25 olopatadine 0.2 % eye drops 1 drp ophthalmic (eye) DAILY 05/08/25 05/08/25 Previous Rx's ?Medication ?Instructions ?Recorded sildenafil 50 mg tablet (Viagra) 50 mg PO DAILY PRN sexual activity 09/08/23 Held on 05/08/25. #7 tabs Instructions: Changed by Provider losartan 50 mg tablet (Cozaar) 50 mg PO DAILY #90 tab-caps 11/13/23 Held on 05/08/25. Instructions: Changed by Provider metformin 1,000 mg tablet 1,000 mg PO BID #180 tabs 03/04/24 Held on 05/08/25. Instructions: Changed by Provider pravastatin 40 mg tablet 40 mg PO DAILY #90 tab-caps 06/30/24 tramadol 50 mg tablet 50 mg PO QHS #28 tabs 08/16/24 Held on 05/08/25. Instructions: Changed by Provider ergocalciferol (vitamin D2) 1,250 1,250 mcg PO QWEEK #90 caps 09/22/24 mcg (50,000 unit) capsule pregabalin 100 mg capsule (Lyrica) 100 mg PO TID #270 caps 09/23/24 trazodone 100 mg tablet 100 mg PO QHS #90 tabs 10/05/24 rivaroxaban 20 mg tablet (Xarelto) 20 mg PO DAILY #90 tabs 11/11/24 cyanocobalamin (vitamin B-12) 1,000 mcg PO DAILY #90 caps 11/22/24 1,000 mcg capsule duloxetine 60 mg capsule,delayed 60 mg PO BID #180 caps 11/22/24 release levothyroxine 25 mcg tablet 25 mcg PO DAILY #90 tab-caps 11/22/24 (Synthroid) metoprolol succinate 100 mg 100 mg PO DAILY #90 tabs 11/22/24 tablet,extended release 24 hr mirabegron 25 mg tablet,extended 25 mg PO DAILY #90 tabs 11/22/24 release 24 hr (Myrbetriq) donepezil 10 mg tablet 10 mg PO QHS #90 tabs 12/07/24 memantine 10 mg tablet 10 mg PO BID #180 tabs 12/07/24 ropinirole 0.25 mg tablet 0.25 mg PO TID #270 tabs 12/07/24 Allergies Allergy/AdvReac Type Severity Reaction Status Date / Time ibuprofen Allergy Unknown ITCHING Verified 05/08/25 04:35 simvastatin AdvReac Intermediate ? OF Verified 05/08/25 04:35 NEUROPATHY OF FEET ILENE Inhibitors AdvReac Unknown COUGH Verified 05/08/25 04:35 General Stated Complaint: RespSymp EDGAR: 2 Review of Systems Narrative: UTO Exam Narrative Exam Narrative: General: Arouses to voice. Non-toxic. Head: Normocephalic, atraumatic Neck: Trachea midline, ?Neck supple. No midline cervical tenderness ENT: ?MMM.? No oropharygeal lesions or exudate. Cardiac: ?RRR, no murmurs appreciated Resp: Diffuse crackles bilaterally, tachypneic. Sonorous/grunting respirations with eyes closed that resolve with stimulation Abd: ?Soft, non-distended, nontender Pelvis: Stable : ?No suprapubic tenderness. Extremities: ?No deformities.? No peripheral edema. Neurologic: GCS 13 (E3 V4 M6).PERRL, miosis. EOMI.? Fluent speech, no dysarthria. Motor- 5/5 strength symmetric bilateral upper and lower extremities Sensation- ?Intact to light touch and symmetric multiple dermatomes including upper and lower extremities Coordination- Pt unable to comply with direction Reflexes- 1/4 achilles & patellar, no clonus Gait/station: ?Not tested CRANIAL NERVES: II: Pupils equal and reactive, III, IV, : EOM intact, no gaze preference or deviation, no nystagmus. V: normal sensation in V1, V2, and V3 segments bilaterally VII: no asymmetry, no nasolabial fold flattening VIII: normal hearing to speech IX, X: normal palatal elevation, no uvular deviation XI: 5/5 head turn and 5/5 shoulder shrug bilaterally XII: midline tongue protrusion Course Vital Signs Vital signs: Vital Signs Temperature 37.8 C H 05/08/25 00:36 Pulse 88 05/08/25 00:36 Respiratory Rate 20 05/08/25 00:36 Blood Pressure 130/68 05/08/25 00:36 Pulse Oximetry 86 L 05/08/25 00:36 Temperature 37.8 C H 05/08/25 00:50 Pulse 88 05/08/25 00:50 Respiratory Rate 20 05/08/25 00:50 Blood Pressure 130/68 05/08/25 00:50 Blood Pressure Position Sitting 05/08/25 00:50 Pulse Oximetry 86 L 05/08/25 00:50 Oxygen Delivery Method Room Air 05/08/25 00:50 Oxygen Flow Rate 0 05/08/25 00:50 Lab/Test Results Lab/Test Results: 05/08/25 01:12 Blood Blood Culture - Pending 05/08/25 00:55 Blood Blood Culture - Pending Laboratory Tests Range/Units 05/08/25 05/08/25 05/08/25 00:30 00:45 00:55 WBC (4.4-10.8) 10^3/uL 7.91 RBC (4.36-5.78) 10^6/uL 4.91 Hgb (13.5-17.5) g/dL 14.7 Hct (40.0-50.0) % 50.1 H MCV (80-95) fL 102 H MCH (27.0-33.0) pg 29.9 MCHC (32.0-36.0) % 29.3 L RDW (11.8-14.1) % 14.2 H Plt Count (130-400) 10^3/uL 122 L MPV (8.0-11.0) fL 12.1 H Immature Gran % % 0.5 Neutrophils % % 76.2 Lymphocytes % % 13.0 Monocytes % % 7.3 Eosinophils % % 2.7 Basophils % % 0.3 Nucleated RBC % (0.0-0.3) % 0.0 Absolute Neutrophils (1.2-6.7) 10^3/uL 6.03 Absolute Lymphocytes (1.2-3.4) 10^3/uL 1.03 L Absolute Monocytes (0.1-0.8) 10^3/uL 0.58 Absolute Eosinophils (0.0-0.7) 10^3/uL 0.21 Absolute Basophils (0.0-0.2) 10^3/uL 0.02 VBG pH (7.31-7.41) 7.22 L Cancelled VBG pCO2 (41-51) mmHg 88 H* Cancelled VBG pO2 mmHg 83 Cancelled VBG HCO3 (23-28) mmol/L 37 H Cancelled VBG Total CO2 (24-29) mmol/L 39 H Cancelled VBG O2 Saturation % 93 Cancelled VBG Base Excess (-2-3) mmol/L 9 H Cancelled VBG Lactate (<or=2.0) mmol/L 1.1 Cancelled Medical Decision Making 74yo M with hx Alzheimer's dementia, afib, T2DM, HTN, HLD, hypothyroidism, obesity, presenting via EMS from [facility] for respiratory distress. They were called to seen for a lift assist after patient reportedly slid out of bed (denied HS or LOC). Noted to be hypoxic on scene to high 70's on room air; improved to 90's on 100% NRB. He was noted to have some grunting respirations. Patient states only I feel fine in response to any questioning including SOB, chest pain, recent falls or injuries, medical history. Sat 86% on room air on arrival; 90's on 100% NRB. Vital signs otherwise reassuring, temp slightly elevated at 37.8. Diffuse crackles on exam, no significant traumatic findings, no focal neurologic deficits. Will cover empirically for sepsis with zosyn/zyvox; will not do IVFB at this time due to respiratory status. Fingerstick blood glucose 150's. -EKG afib in 90's, no ST segment or T wave abnormalities to suggest occlusive NV -CXR independently reviewed; diffuse pulmonary edema on my view with no clear focal pneumonia; radiology read below with probable congestive heart failure. -Labs reviewed as below, CBC reassuring with no leukocytosis or anemia (mild thrombocytponia, appears chronic on [facility] record review), CMP with mild hyperkalemia at 5.2 (EKG without concerning changes; in the setting of pulmonary edema will treat wtih IV lasix) and likely CONCHITA with Cr 1.64 from normal baseline, VBG with respiratory acidosis pH 7.22 , pCO2 88, bicarb 35.9 (started on biPAP 16/7), lactate normal, TSH normal, dimer normal (would not further pursue pulmonary embolism with CT imaging), BNP elevated at ~1400, troponin normal at 17 with one hour repeat 15 reassuring against ACS. UA not infected. Respiratory viral swab negative. -Head CT independently reviewed; no ICH on my view, radiology read with no acute findings. -Repeat VBG improving; will continue BiPAP. On reassessment mental status is improving, able to state that his breathing feels okay/better but that he does not like being on the biPAP. Repeat VBG backsliding (pt did come off biPAP briefly for CT scan); will increase to 18/7. Given additional 40mg IV lasix; he is not wheezy but will trial duoneb and see if improves symptoms. Discussed [facility] hospitalist Dr. Summers; accepted to medicine service for further workup and management. Awaiting admission orders. IMPRESSION: 1. Probable congestive heart failure. Underlying inflammatory or infectious process not excluded. 2. Possible small left pleural effusion. IMPRESSION: No acute intracranial abnormality seen. Lab Data Lab results reviewed: Yes I reviewed the patient's lab results. Labs: 05/08/25 01:25 Blood Blood Culture - Pending 05/08/25 01:12 Blood Blood Culture - Pending Laboratory Tests Range/Units 05/08/25 05/08/25 05/08/25 00:30 00:45 00:55 WBC (4.4-10.8) 10^3/uL 7.91 RBC (4.36-5.78) 10^6/uL 4.91 Hgb (13.5-17.5) g/dL 14.7 Hct (40.0-50.0) % 50.1 H MCV (80-95) fL 102 H MCH (27.0-33.0) pg 29.9 MCHC (32.0-36.0) % 29.3 L RDW (11.8-14.1) % 14.2 H Plt Count (130-400) 10^3/uL 122 L MPV (8.0-11.0) fL 12.1 H Immature Gran % % 0.5 Neutrophils % % 76.2 Lymphocytes % % 13.0 Monocytes % % 7.3 Eosinophils % % 2.7 Basophils % % 0.3 Nucleated RBC % (0.0-0.3) % 0.0 Absolute Neutrophils (1.2-6.7) 10^3/uL 6.03 Absolute Lymphocytes (1.2-3.4) 10^3/uL 1.03 L Absolute Monocytes (0.1-0.8) 10^3/uL 0.58 Absolute Eosinophils (0.0-0.7) 10^3/uL 0.21 Absolute Basophils (0.0-0.2) 10^3/uL 0.02 D-Dimer (<500) ng/mlFEU VBG pH (7.31-7.41) 7.22 L Cancelled VBG pCO2 (41-51) mmHg 88 H* Cancelled VBG pO2 mmHg 83 Cancelled VBG HCO3 (23-28) mmol/L 37 H Cancelled VBG Total CO2 (24-29) mmol/L 39 H Cancelled VBG O2 Saturation % 93 Cancelled VBG Base Excess (-2-3) mmol/L 9 H Cancelled VBG Lactate (<or=2.0) mmol/L 1.1 Cancelled Sodium (136-145) mmol/L Potassium (3.5-5.1) mmol/L Chloride (98-107) mmol/L Carbon Dioxide (20.0-31.0) mmol/L Anion Gap (3-11) mmol/L BUN (9-23) mg/dL Creatinine (0.73-1.18) mg/dL Est GFR (CKD-EPI 2020) (mL/min/1.73m2) Glucose (74-106) mg/dL Calcium (8.3-10.6) mg/dL Magnesium (1.6-2.6) mg/dL Total Bilirubin (0.2-1.2) mg/dL AST (<34) U/L ALT (10-49) U/L Alkaline Phosphatase (46-116) U/L Troponin I (<54) ng/L NT-Pro-B Natriuret Pep (<300) pg/mL Total Protein (5.7-8.2) g/dL Albumin (3.2-5.0) g/dL COVID-19 Source SARS-CoV-2 (PCR) (Negative) Influenza Type A (PCR) (Negative) Influenza Type B (PCR) (Negative) RSV (PCR) (Negative) Range/Units 05/08/25 05/08/25 05/08/25 01:23 01:25 02:20 WBC (4.4-10.8) 10^3/uL RBC (4.36-5.78) 10^6/uL Hgb (13.5-17.5) g/dL Hct (40.0-50.0) % MCV (80-95) fL MCH (27.0-33.0) pg MCHC (32.0-36.0) % RDW (11.8-14.1) % Plt Count (130-400) 10^3/uL MPV (8.0-11.0) fL Immature Gran % % Neutrophils % % Lymphocytes % % Monocytes % % Eosinophils % % Basophils % % Nucleated RBC % (0.0-0.3) % Absolute Neutrophils (1.2-6.7) 10^3/uL Absolute Lymphocytes (1.2-3.4) 10^3/uL Absolute Monocytes (0.1-0.8) 10^3/uL Absolute Eosinophils (0.0-0.7) 10^3/uL Absolute Basophils (0.0-0.2) 10^3/uL D-Dimer (<500) ng/mlFEU 413 VBG pH (7.31-7.41) 7.25 L VBG pCO2 (41-51) mmHg 78 H* VBG pO2 mmHg 58 VBG HCO3 (23-28) mmol/L 34 H VBG Total CO2 (24-29) mmol/L 31 H VBG O2 Saturation % 86 VBG Base Excess (-2-3) mmol/L 7 H VBG Lactate (<or=2.0) mmol/L Sodium (136-145) mmol/L 143 Potassium (3.5-5.1) mmol/L 5.2 H Chloride (98-107) mmol/L 104 Carbon Dioxide (20.0-31.0) mmol/L 35.9 H Anion Gap (3-11) mmol/L 3.1 BUN (9-23) mg/dL 37 H Creatinine (0.73-1.18) mg/dL 1.64 H Est GFR (CKD-EPI 2020) (mL/min/1.73m2) 40.99 Glucose (74-106) mg/dL 183 H Calcium (8.3-10.6) mg/dL 8.5 Magnesium (1.6-2.6) mg/dL 2.2 Total Bilirubin (0.2-1.2) mg/dL 0.5 AST (<34) U/L 13 ALT (10-49) U/L 7 L Alkaline Phosphatase (46-116) U/L 101 Troponin I (<54) ng/L 17 15 NT-Pro-B Natriuret Pep (<300) pg/mL 1442 H Total Protein (5.7-8.2) g/dL 7.7 Albumin (3.2-5.0) g/dL 4.5 COVID-19 Source Nasopharynx SARS-CoV-2 (PCR) (Negative) Negative Influenza Type A (PCR) (Negative) Negative Influenza Type B (PCR) (Negative) Negative RSV (PCR) (Negative) Negative Critical Care Time Critical Care Time Critical Care Time: Yes Total Critical Care Time: 48 Attestation: Due to a high probability of clinically significant, life threatening deterioration, the patient required my highest level of preparedness to intervene emergently and I personally spent this critical care time directly and personally managing the patient. This critical care time included obtaining a history; examining the patient; pulse oximetry; ordering and review of studies; arranging urgent treatment with development of a management plan; evaluation of patient's response to treatment; frequent reassessment; and, discussions with other providers. This critical care time was performed to assess and manage the high probability of imminent, life-threatening deterioration that could result in multi-organ failure. It was exclusive of separately billable procedures and treating other patients PFSH All Active Problems CONCHITA (acute kidney injury) (Acute) Depression (Chronic) Acute respiratory failure with hypoxia and hypercarbia (Acute) Altered mental status (Acute) Hyperkalemia (Acute) Congestive heart failure (Acute) Acute hypoxic respiratory failure (Acute) Acute hypercapnic respiratory failure (Acute) Urinary incontinence (Acute) Alzheimer dementia (Chronic) Urinary incontinence, urge (Acute) Gait instability (Acute) PLMD (periodic limb movement disorder) (Chronic) Advanced care planning/counseling discussion (Acute) Goals of care, counseling/discussion (Acute) Gait abnormality (Acute) Pneumonia (Acute) Hypothyroidism (Chronic) Pain in soft tissues of limb (Acute) Other hammer toe (acquired) (Acute) Corns and callosities (Acute) Acute cognitive decline (Acute) Cold sensation of skin (Acute) Neuropathy (Chronic) Chronic pain syndrome (Chronic) No longer taking MS and no longer on contract. 12/10/16 RENEWAL OF CONTROLLED SUBSTANCE AGREEMENT 04/2021-updated agreement/VPMS query and drug screen Sexual function problem (Acute) Polyp of colon (Acute 06/25/08) Peripheral neuralgia (Acute) of feet; idiopathic; multiple neuro w/u's; 2 brothers and mother with similar issue...likely genetic origin multiple neuro consults. See 2013 Dr Garcia. Obesity (Acute) Complete edentulism, unspecified (Acute) Anticoagulated on warfarin (Acute) A-fib; goal 2-3 Hemorrhoids (Acute) Open wound of right heel (Acute) Followed by [facility] Medical History Palliative care encounter Cognitive decline Supratherapeutic INR Anxiety Atrial fibrillation beginning in 2002, it was initially paroxysmal and cardioverted. It is now chronic. On warfarin Chronic obstructive lung disease Hyperlipidemia Essential hypertension (03/16/13) Diabetes mellitus Surgical History Hx of cataract surgery Hx of colonoscopy Repair of inguinal hernia (~1975) right CARDIOVERSION (~2002) Family History Mother Stroke Father Heart disease Brother Diabetes Brother No problems noted. Maternal Grandfather No problems noted. Paternal Grandfather No problems noted. Maternal Grandmother No problems noted. Son Hypertension Daughter Depression Social History Smoking/Tobacco Use Status: Former Tobacco Use tobacco type: cigarettes Quit Date: 05/26/08 Second Hand Exposure: Yes Smoking risk assessment performed?: Yes Alcohol Intake: current Alcohol Intake frequency: a few times a week Alcohol type: beer Drug use: Occasionally Substance use type: marijuana Details: pt stated to MD no use of tobacco, alcohol, or substance use Caregiver/Support person: No Household members: children Housing: house Communication Needs: None Do you need help understanding health information?: Always Pets and animals: No Sexually active: No Do you think of yourself as: straight/heterosexual Current gender identity: male What is your relationship status?: How often do you talk on the phone with friends or family?: twice per week How often do you get together with friends or relatives?: three or more times per week How often do you attend hoahaoism or holiness services?: decline to answer Do you belong to any clubs or organized social groups?: yes Panel score (0-1 are the most socially isolated patients): 2 What type of physical activity do you participate in: none Duration: 15-30 minutes/day Frequency: daily Khalida/Islam: No preference Special khalida needs: No Seatbelt use: always Helmet use: Yes Helmet use: always Drive intox or ride w/intox tank driver: No Do you feel safe at home: Yes Do you feel safe in your relationship?: Yes Victim of physical abuse: No Victim of emotional abuse: No Victim of sexual abuse: No Would you like helpful sources: No
[2025-05-08] MEDS: LINEZOLID 600 MG/300 ML BAG 300 MG IVPB (01:30)
[2025-05-08] MEDS: PIPERACILLIN/TAZO 4.5 GM in Normal Saline 100 ML IVPB (01:31)
--- NOTE | 2025-05-08 01:33 | DI.[facility]_ITS ---
PROCEDURE INFORMATION: Exam: XR Chest Exam date and time: 05/08/2025 1:21 AM Age: 74 years old Clinical indication: Other: Respiratory failure TECHNIQUE: Imaging protocol: Radiologic exam of the chest. Views: 1 view. COMPARISON: CR XR PORTABLE CHEST AP 05/02/2023 18:11 FINDINGS: Lungs: There is pulmonary venous congestion. There is diffuse interstitial edema. Underlying inflammatory or infectious process not excluded. Pleural spaces: There is a possible small left pleural effusion. No evidence of pneumothorax. Heart/Mediastinum: The heart is enlarged. There is prominence of the mediastinum. Bones/joints: The skeletal structures and soft tissues show no evidence of fracture or other acute processes. Soft tissues: The soft tissues of the extrathoracic region are unremarkable. IMPRESSION: 1. Probable congestive heart failure. Underlying inflammatory or infectious process not excluded. 2. Possible small left pleural effusion. Dictated and Authenticated by: Molina Lange MD. Orderin Gavino Roy MD
[2025-05-08 01:50] LABS: Magnesium 2.2 mg/dL (1.6-2.6); Troponin I 17 ng/L (<54)
[2025-05-08 01:51] LABS: ALT 7 U/L (10-49); AST 13 U/L (<34); Albumin 4.5 g/dL (3.2-5.0); Alkaline Phosphatase 101 U/L (46-116); Anion Gap 3.1 mmol/L (3-11); BUN 37 mg/dL (9-23); Bilirubin, Total 0.5 mg/dL (0.2-1.2); CO2 35.9 mmol/L (20.0-31.0); Calcium 8.5 mg/dL (8.3-10.6); Chloride 104 mmol/L (98-107); Glucose 183 mg/dL (74-106); Potassium 5.2 mmol/L (3.5-5.1); Sodium 143 mmol/L (136-145); Total Protein 7.7 g/dL (5.7-8.2)
[2025-05-08 01:59] LABS: D-Dimer 413 ng/mlFEU (<500)
[2025-05-08 02:11] LABS: COVID-19 PCR Negative (Negative); RSV PCR Negative (Negative)
[2025-05-08 02:25] LABS: BE (Venous) 7 mmol/L (-2-3); HCO3 (Venous) 34 mmol/L (23-28); O2 Sat (Venous) 86 %; TCO2 (Venous) 31 mmol/L (24-29); pO2 (Venous) 58 mmHg
[2025-05-08 02:27] LABS: pCO2 (Venous) 78 mmHg (41-51)
[2025-05-08] MEDS: Furosemide 40 MG/4 ML VIAL IVP ×3 (02:44→07:35)
--- NOTE | 2025-05-08 02:45 | DI.CT_ITS ---
Exam(s) CT HEAD WO EXAM: CT HEAD WO CLINICAL HISTORY: AMS, on AC. TECHNIQUE: Imaging Protocol: Axial computed tomography images with coronal and sagittal reformatted images were created and reviewed COMPARISON: CT CT HEAD WO from 02/05/2023 FINDINGS: The exam is mildly limited by motion. Ventricles and Extra axial spaces: Normal in size and morphology for the patient's age. Hemorrhage: None. Cerebral parenchyma: No evidence of acute infarct or mass. No significant atrophy. No significant white matter changes. Midline shift: None. Brainstem/Cerebellum: Normal. Bones: No skull or facial fractures. Visualized Paranasal sinuses:Clear. Prior left sinus surgery. Mastoids: Clear. Soft Tissues: Unremarkable. ORBITS: Unremarkable. PITUITARY: Not enlarged. IMPRESSION: No acute intracranial process. The preliminary [facility] report was reviewed. RADIATION DOSE DELIVERED: Total DLP DATA REPOSITORY: All CT scans at this facility are submitted to the National Radiology Data Registry (NRDR) Dose Index Registry (DIR) with the [employer] (ACR). RADIATION OPTIMIZATION: All CT scans at this facility use at least one of these dose optimization techniques: automated exposure control; mA and/or kV adjustment per patient size (includes targeted exams where dose is matched to clinical indication); or iterative reconstruction.
[2025-05-08 02:47] LABS: Troponin I 15 ng/L (<54)
[2025-05-08 02:54] LABS: Glucose Negative (Negative)
[2025-05-08 03:03] LABS: WBC Negative HPF (0-5)
[2025-05-08 03:04] LABS: C & S Indicated? No
[2025-05-08 03:25] LABS: TSH (W/Ref FT4) 2.81 uIU/mL (0.55-4.78)
--- NOTE | 2025-05-08 03:30 | DI.VRAD_ITS ---
PROCEDURE INFORMATION: Exam: CT Head Without Contrast Exam date and time: 05/08/2025 3:08 AM Age: 74 years old Clinical indication: Altered mental status/memory loss; Additional info: AMS, on ac TECHNIQUE: Imaging protocol: Computed tomography of the head without contrast. COMPARISON: MRI, BRAIN S/ CONTRAST 04/02/2023 12:50 PM FINDINGS: Brain: No acute intracranial hemorrhage, mass-effect, midline shift, or extra-axial collection is seen. The figueroa white matter differentiation appears preserved. Cerebral ventricles: The ventricular system and basilar cisterns appear appropriate in size and configuration. Paranasal sinuses: The visualized paranasal sinuses appear well-aerated. Mastoid air cells: The visualized mastoid air cells appear well aerated. Auditory system: The middle ear cavities appear clear. Orbital cavities: The globes and intraorbital structures appear grossly intact. Teeth: The patient is edentulous. Bones: The bony calvarium appears intact. No depressed skull fracture is seen. Soft tissues: No significant scalp lesion is seen. IMPRESSION: No acute intracranial abnormality seen. Dictated and Authenticated by: Anand Ramos MD. Orderin Gavino Roy MD
[2025-05-08 03:40] LABS: BE (Venous) 6 mmol/L (-2-3); HCO3 (Venous) 34 mmol/L (23-28); O2 Sat (Venous) 54 %; TCO2 (Venous) 32 mmol/L (24-29); pO2 (Venous) 34 mmHg
[2025-05-08 03:41] LABS: pCO2 (Venous) 83 mmHg (41-51)
[2025-05-08 03:51] LABS: Potassium 5.0 mmol/L (3.5-5.1)
[2025-05-08] MEDS: Albuterol/Ipratropium 3 ML UPD VIAL UPD ×4 (03:58→19:45)
--- NOTE | 2025-05-08 04:01 | W.PM.HP.N ---
Date of service: 05/08/25 Time of Service: 04:02 Assessment and Plan Assessment and plan (1) Acute respiratory failure with hypoxia and hypercarbia: Start date: 05/08/25 Status: Acute Assessment and plan: This is a 74-year-old gentleman who resides at the [facility] and fairly functional who had sudden onset of respiratory distress with no obvious history of decompensation prior to presentation. He has dementia which is treated and was found at his bedside having fallen. He has a history of diabetes and chronic atrial fibrillation which appears to be stable with patient not being hypoglycemic in the ED. His BNP was elevated and imaging did reveal pulmonary edema and also possible suggestion of inflammatory process. He was started on IV Lasix and will be initiated on IV antibiotic therapy. Will continue BiPAP weaning as tolerated and more aggressive treatment of COPD with patient not on chronic inhalers. He did have low-grade fever but no elevated WBC. He was not hypotensive. There is some evidence of chronic respiratory failure with his pCO2 elevated on his chemistries. He also had CONCHITA with hyperkalemia responding to treatment and polycythemia suggesting intravascular volume depletion. Lasix will be continued but he may need fluid resuscitation if he becomes more dry as his respiratory status improved. He does need an updated echocardiogram. He has a DNR/DNI. (2) Congestive heart failure: Start date: 05/08/25 Status: Acute Assessment and plan: Continue IV Lasix following closely for dehydration. Update echocardiogram. (3) CONCHITA (acute kidney injury): Start date: 05/08/25 Status: Acute Assessment and plan: Patient appears to have acute increase in his creatinine but not severely and he may be intravascularly depleted chronically but presently he needs more aggressive treatment of CHF. As he tolerates coming off BiPAP we will increase oral hydration. He has no history of having decreased intake recently. (4) Hyperkalemia: Start date: 05/08/25 Status: Acute Assessment and plan: As a consequence of his acute process resolving with IV Lasix. (5) Pneumonia: Start date: 05/08/25 Status: Acute Assessment and plan: Possible inflammatory process with acute CHF. However with cefepime and vancomycin with follow-up imaging as needed. (6) Essential hypertension: Assessment and plan: Continue outpatient medical therapy and adjust as needed. (7) Atrial fibrillation: Assessment and plan: Continue outpatient medical therapy along with oral anticoagulant with no evidence of acute hemorrhage. (8) Alzheimer dementia: Status: Chronic Assessment and plan: Continue outpatient treatment with Aricept and Namenda. He appears to be functioning fairly well with this problem. (9) Chronic obstructive lung disease: Assessment and plan: Patient is a remote smoker but not on inhalers recently. There is some evidence of chronic CO2 retention on his chemistries. Nebulizer treatments with DuoNeb while hospitalized though he does not have overt wheeze. (10) Diabetes mellitus: Assessment and plan: Hold outpatient medical therapy with glucometers before meals and at bedtime and moderate sliding scale coverage with his meals. (11) Neuropathy: Status: Chronic Assessment and plan: Continue outpatient medical therapy. (12) Hypothyroidism: Status: Chronic Assessment and plan: Continue outpatient supplement therapy. (13) PLMD (periodic limb movement disorder): Status: Chronic Assessment and plan: Continue outpatient medical therapy. (14) Depression: Status: Chronic Assessment and plan: This appears stable, continue outpatient medical therapy. History of Present Illness History of Present Illness Chief Complaint: Patient fell out of bed with confusion and hypoxemia. Narrative: This is a 74-year-old male patient who resides at [facility] and with moderate Alzheimer's disease on depression who was found at his bedside having fallen out of bed with increased confusion. When EMS arrived, patient stated that he was okay but was hypoxic with pulse oximeter in the 70s and more confused than his baseline. He was transferred to the ED for evaluation was found to have acute hypoxic and hypercapnic respiratory failure which responded to BiPAP. CT scan of the head revealed no acute abnormalities and chest x-ray did reveal probable pulmonary edema and question of inflammatory process bilaterally. He also had a small left pleural effusion. His last echocardiogram was in 2010 with a reduced left ventricular ejection fraction in the 40s but this need to be updated. He has had no chest pain or preliminary shortness of breath or cough did have a low-grade fever but no elevated WBC in the ED. He did not meet sepsis criteria. He does have chronic atrial fibrillation on rate control and anticoagulation with Xarelto despite his confusion. He usually does not have problems with falls. He has had no weight gain or edema recently. It is scraped his right rivera with his fall. He has no aches or pains from his fall other than his scraped skin. He will be admitted to the ICU for close monitoring with BiPAP continuously. The patient is moderately obese. His comical problem will continue with treatment. He is a DNR/DNI. Review of Systems Narrative: 13 point review of systems otherwise unrevealing or stable. [facility] All Active Problems CONCHITA (acute kidney injury) (Acute) Depression (Chronic) Acute respiratory failure with hypoxia and hypercarbia (Acute) Altered mental status (Acute) Hyperkalemia (Acute) Congestive heart failure (Acute) Acute hypoxic respiratory failure (Acute) Acute hypercapnic respiratory failure (Acute) Urinary incontinence (Acute) Alzheimer dementia (Chronic) Urinary incontinence, urge (Acute) Gait instability (Acute) PLMD (periodic limb movement disorder) (Chronic) Advanced care planning/counseling discussion (Acute) Goals of care, counseling/discussion (Acute) Gait abnormality (Acute) Pneumonia (Acute) Hypothyroidism (Chronic) Pain in soft tissues of limb (Acute) Other hammer toe (acquired) (Acute) Corns and callosities (Acute) Acute cognitive decline (Acute) Cold sensation of skin (Acute) Neuropathy (Chronic) Chronic pain syndrome (Chronic) No longer taking MS and no longer on contract. 12/10/16 RENEWAL OF CONTROLLED SUBSTANCE AGREEMENT 04/2021-updated agreement/VPMS query and drug screen Sexual function problem (Acute) Polyp of colon (Acute 06/25/08) Peripheral neuralgia (Acute) of feet; idiopathic; multiple neuro w/u's; 2 brothers and mother with similar issue...likely genetic origin multiple neuro consults. See 2013 Dr Garcia. Obesity (Acute) Complete edentulism, unspecified (Acute) Anticoagulated on warfarin (Acute) A-fib; goal 2-3 Hemorrhoids (Acute) Open wound of right heel (Acute) Followed by [facility] Medical History Palliative care encounter Cognitive decline Supratherapeutic INR Anxiety Atrial fibrillation beginning in 2002, it was initially paroxysmal and cardioverted. It is now chronic. On warfarin Chronic obstructive lung disease Hyperlipidemia Essential hypertension (03/16/13) Diabetes mellitus Surgical History Hx of cataract surgery Hx of colonoscopy Repair of inguinal hernia (~1975) right CARDIOVERSION (~2002) Family History Mother Stroke Father Heart disease Brother Diabetes Brother No problems noted. Maternal Grandfather No problems noted. Paternal Grandfather No problems noted. Maternal Grandmother No problems noted. Son Hypertension Daughter Depression Social History Smoking/Tobacco Use Status: Former Tobacco Use tobacco type: cigarettes Quit Date: 05/26/08 Second Hand Exposure: Yes Smoking risk assessment performed?: Yes Alcohol Intake: current Alcohol Intake frequency: a few times a week Alcohol type: beer Drug use: Occasionally Substance use type: marijuana Details: pt stated to MD no use of tobacco, alcohol, or substance use Caregiver/Support person: No Household members: children Housing: house Communication Needs: None Do you need help understanding health information?: Always Pets and animals: No Sexually active: No Do you think of yourself as: straight/heterosexual Current gender identity: male What is your relationship status?: How often do you talk on the phone with friends or family?: twice per week How often do you get together with friends or relatives?: three or more times per week How often do you attend jainism or baptism services?: decline to answer Do you belong to any clubs or organized social groups?: yes Panel score (0-1 are the most socially isolated patients): 2 What type of physical activity do you participate in: none Duration: 15-30 minutes/day Frequency: daily Khalida/Moravian: No preference Special khalida needs: No Seatbelt use: always Helmet use: Yes Helmet use: always Drive intox or ride w/intox stacker driver: No Do you feel safe at home: Yes Do you feel safe in your relationship?: Yes Victim of physical abuse: No Victim of emotional abuse: No Victim of sexual abuse: No Would you like helpful sources: No Meds Allergies and Home Medications Allergies Allergy/AdvReac Type Severity Reaction Status Date / Time ibuprofen Allergy Unknown ITCHING Verified 05/08/25 04:35 simvastatin AdvReac Intermediate ? OF Verified 05/08/25 04:35 NEUROPATHY OF FEET ILENE Inhibitors AdvReac Unknown COUGH Verified 05/08/25 04:35 Home Medications ?Medication ?Instructions ?Recorded ?Confirmed ?Type vitamin E mixed 400 unit capsule 400 unit PO BID 08/08/23 05/08/25 History sildenafil 50 mg tablet (Viagra) 50 mg PO DAILY PRN sexual activity 09/08/23 05/08/25 Rx Held on 05/08/25. #7 tabs Instructions: Changed by Provider losartan 50 mg tablet (Cozaar) 50 mg PO DAILY #90 tab-caps 11/13/23 05/08/25 Rx Held on 05/08/25. Instructions: Changed by Provider metformin 1,000 mg tablet 1,000 mg PO BID #180 tabs 03/04/24 05/08/25 Rx Held on 05/08/25. Instructions: Changed by Provider pravastatin 40 mg tablet 40 mg PO DAILY #90 tab-caps 06/30/24 05/08/25 Rx tramadol 50 mg tablet 50 mg PO QHS #28 tabs 08/16/24 05/08/25 Rx Held on 05/08/25. Instructions: Changed by Provider ergocalciferol (vitamin D2) 1,250 1,250 mcg PO QWEEK #90 caps 09/22/24 05/08/25 Rx mcg (50,000 unit) capsule pregabalin 100 mg capsule (Lyrica) 100 mg PO TID #270 caps 09/23/24 05/08/25 Rx trazodone 100 mg tablet 100 mg PO QHS #90 tabs 10/05/24 05/08/25 Rx rivaroxaban 20 mg tablet (Xarelto) 20 mg PO DAILY #90 tabs 11/11/24 05/08/25 Rx cyanocobalamin (vitamin B-12) 1,000 mcg PO DAILY #90 caps 11/22/24 05/08/25 Rx 1,000 mcg capsule duloxetine 60 mg capsule,delayed 60 mg PO BID #180 caps 11/22/24 05/08/25 Rx release levothyroxine 25 mcg tablet 25 mcg PO DAILY #90 tab-caps 11/22/24 05/08/25 Rx (Synthroid) metoprolol succinate 100 mg 100 mg PO DAILY #90 tabs 11/22/24 05/08/25 Rx tablet,extended release 24 hr mirabegron 25 mg tablet,extended 25 mg PO DAILY #90 tabs 11/22/24 05/08/25 Rx release 24 hr (Myrbetriq) donepezil 10 mg tablet 10 mg PO QHS #90 tabs 12/07/24 05/08/25 Rx memantine 10 mg tablet 10 mg PO BID #180 tabs 12/07/24 05/08/25 Rx ropinirole 0.25 mg tablet 0.25 mg PO TID #270 tabs 12/07/24 05/08/25 Rx carboxymethylcellulose 0.5 1 drp ophthalmic (eye) TID 05/08/25 05/08/25 History %-glycerin 0.9 % eye drops (Refresh Relieva) dulaglutide 4.5 mg/0.5 mL 4.5 mg subcut .weekly 05/08/25 05/08/25 History subcutaneous pen injector (Trulicity) eyelid cleanser combination 3 1 pad topical DAILY AM 05/08/25 05/08/25 History (OcuSoft Lid Scrub Plus topical pads) losartan 100 mg tablet 100 mg PO DAILY 05/08/25 05/08/25 History olopatadine 0.2 % eye drops 1 drp ophthalmic (eye) DAILY 05/08/25 05/08/25 History Exam Narrative Exam Narrative: General: Patient appears appropriate for age, moderately obese, he is alert and oriented to person, place and possibly time at my interview with BiPAP in place. He finds it difficult to talk with BiPAP and seems slightly frustrated feeling dry stating that he has not had anything to drink for hours. HEENT: Normocephalic, eyes with pupils equal and reactive to light symmetrically, extraocular movement intact and sclera anicteric. Oropharynx with dry mucosa. Neck: Supple without JVD. Back: Stooped posture without CVA tenderness. Lungs: Fair aeration with slight decreased aeration at the bases but no focalizing rales or rhonchi. No expiratory wheeze and no increased expiratory phase. (Patient is chronically not on inhalers despite history of COPD). Heart: Irregularly irregular rhythm with normal rate. No murmurs gallops appreciated. Distant heart sounds. Abdomen: Obese contour, soft and nontender to palpation no palpable hepatosplenomegaly. Bowel sounds positive in all quadrants. Genitalia/rectal: Exam deferred. Patient has Roblero catheter draining clear urine. Extremities: Without clubbing, cyanosis or pitting edema. Abrasion over right anterior leg without active bleeding and over the superficial dermis. Good capillary refill. Skin: Normal color, warm and dry abrasion of the right leg as mentioned. Neuro: Cranial nerves II through XII gross intact, no focalized motor deficits and no tremor. Psych: Normal affect but slightly agitated and depressed mood, no abnormal thought processes. Remote and recent memory grossly intact at the time of my exam with no extensive questioning of recent memory. Results Imaging Imaging Studies: Exam: XR Chest Exam date and time: 05/08/2025 1:21 AM Age: 74 years old Clinical indication: Other: Respiratory failure TECHNIQUE: Imaging protocol: Radiologic exam of the chest. Views: 1 view. COMPARISON: CR XR PORTABLE CHEST AP 05/02/2023 18:11 FINDINGS: Lungs: There is pulmonary venous congestion. There is diffuse interstitial edema. Underlying inflammatory or infectious process not excluded. Pleural spaces: There is a possible small left pleural effusion. No evidence of pneumothorax. Heart/Mediastinum: The heart is enlarged. There is prominence of the mediastinum. Bones/joints: The skeletal structures and soft tissues show no evidence of fracture or other acute processes. Soft tissues: The soft tissues of the extrathoracic region are unremarkable. IMPRESSION: 1. Probable congestive heart failure. Underlying inflammatory or infectious process not excluded. 2. Possible small left pleural effusion. Exam: CT Head Without Contrast Exam date and time: 05/08/2025 3:08 AM Age: 74 years old Clinical indication: Altered mental status/memory loss; Additional info: AMS, on ac TECHNIQUE: Imaging protocol: Computed tomography of the head without contrast. COMPARISON: MRI, BRAIN S/ CONTRAST 04/02/2023 12:50 PM FINDINGS: Brain: No acute intracranial hemorrhage, mass-effect, midline shift, or extra-axial collection is seen. The figueroa white matter differentiation appears preserved. Cerebral ventricles: The ventricular system and basilar cisterns appear appropriate in size and configuration. Paranasal sinuses: The visualized paranasal sinuses appear well-aerated. Mastoid air cells: The visualized mastoid air cells appear well aerated. Auditory system: The middle ear cavities appear clear. Orbital cavities: The globes and intraorbital structures appear grossly intact. Teeth: The patient is edentulous. Bones: The bony calvarium appears intact. No depressed skull fracture is seen. Soft tissues: No significant scalp lesion is seen. IMPRESSION: No acute intracranial abnormality seen. Labs 05/08/25 00:30 05/08/25 03:35 Labs: Laboratory Results - last 24 hr 05/08/25 05/08/25 05/08/25 00:30 00:45 00:55 WBC 7.91 RBC 4.91 Hgb 14.7 Hct 50.1 H MCV 102 H MCH 29.9 MCHC 29.3 L RDW 14.2 H Plt Count 122 L MPV 12.1 H Immature Gran % 0.5 Neutrophils % 76.2 Lymphocytes % 13.0 Monocytes % 7.3 Eosinophils % 2.7 Basophils % 0.3 Nucleated RBC % 0.0 Absolute Neutrophils 6.03 Absolute Lymphocytes 1.03 L Absolute Monocytes 0.58 Absolute Eosinophils 0.21 Absolute Basophils 0.02 D-Dimer VBG pH 7.22 L Cancelled VBG pCO2 88 H* Cancelled VBG pO2 83 Cancelled VBG HCO3 37 H Cancelled VBG Total CO2 39 H Cancelled VBG O2 Saturation 93 Cancelled VBG Base Excess 9 H Cancelled VBG Lactate 1.1 Cancelled Sodium Potassium Chloride Carbon Dioxide Anion Gap BUN Creatinine Est GFR (CKD-EPI 2020) Glucose Calcium Magnesium Total Bilirubin AST ALT Alkaline Phosphatase Troponin I NT-Pro-B Natriuret Pep Total Protein Albumin TSH Urine Color Urine Clarity Urine pH Ur Specific [place] Urine Protein Urine Ketones Urine Blood Urine Nitrite Urine Bilirubin Urine Urobilinogen Ur Leukocyte Esterase Urine RBC Urine WBC Ur Epithelial Cells Urine Crystals Urine Bacteria Urine Casts Urine Mucus Ur Culture Indicated? Urine Glucose COVID-19 Source SARS-CoV-2 (PCR) Influenza Type A (PCR) Influenza Type B (PCR) RSV (PCR) Add-On Test Request 05/08/25 05/08/25 05/08/25 01:23 01:25 02:20 WBC RBC Hgb Hct MCV MCH MCHC RDW Plt Count MPV Immature Gran % Neutrophils % Lymphocytes % Monocytes % Eosinophils % Basophils % Nucleated RBC % Absolute Neutrophils Absolute Lymphocytes Absolute Monocytes Absolute Eosinophils Absolute Basophils D-Dimer 413 VBG pH 7.25 L VBG pCO2 78 H* VBG pO2 58 VBG HCO3 34 H VBG Total CO2 31 H VBG O2 Saturation 86 VBG Base Excess 7 H VBG Lactate Sodium 143 Potassium 5.2 H Chloride 104 Carbon Dioxide 35.9 H Anion Gap 3.1 BUN 37 H Creatinine 1.64 H Est GFR (CKD-EPI 2020) 40.99 Glucose 183 H Calcium 8.5 Magnesium 2.2 Total Bilirubin 0.5 AST 13 ALT 7 L Alkaline Phosphatase 101 Troponin I 17 15 NT-Pro-B Natriuret Pep 1442 H Total Protein 7.7 Albumin 4.5 TSH 2.81 Urine Color Urine Clarity Urine pH Ur Specific [place] Urine Protein Urine Ketones Urine Blood Urine Nitrite Urine Bilirubin Urine Urobilinogen Ur Leukocyte Esterase Urine RBC Urine WBC Ur Epithelial Cells Urine Crystals Urine Bacteria Urine Casts Urine Mucus Ur Culture Indicated? Urine Glucose COVID-19 Source Nasopharynx SARS-CoV-2 (PCR) Negative Influenza Type A (PCR) Negative Influenza Type B (PCR) Negative RSV (PCR) Negative Add-On Test Request 05/08/25 05/08/25 05/08/25 02:39 02:45 03:35 WBC RBC Hgb Hct MCV MCH MCHC RDW Plt Count MPV Immature Gran % Neutrophils % Lymphocytes % Monocytes % Eosinophils % Basophils % Nucleated RBC % Absolute Neutrophils Absolute Lymphocytes Absolute Monocytes Absolute Eosinophils Absolute Basophils D-Dimer VBG pH Cancelled 7.22 L VBG pCO2 Cancelled 83 H* VBG pO2 Cancelled 34 VBG HCO3 Cancelled 34 H VBG Total CO2 Cancelled 32 H VBG O2 Saturation Cancelled 54 VBG Base Excess Cancelled 6 H VBG Lactate Sodium Potassium 5.0 Chloride Carbon Dioxide Anion Gap BUN Creatinine Est GFR (CKD-EPI 2020) Glucose Calcium Magnesium Total Bilirubin AST ALT Alkaline Phosphatase Troponin I NT-Pro-B Natriuret Pep Total Protein Albumin TSH Urine Color Yellow Urine Clarity Clear Urine pH 5.5 Ur Specific [place] 1.020 Urine Protein 30 H Urine Ketones Negative Urine Blood Trace-intact H Urine Nitrite Negative Urine Bilirubin Negative Urine Urobilinogen 0.2 Ur Leukocyte Esterase Negative Urine RBC 3-5 H Urine WBC Negative Ur Epithelial Cells Negative Urine Crystals Negative Urine Bacteria Rare Urine Casts Negative Urine Mucus Negative Ur Culture Indicated? No Urine Glucose Negative COVID-19 Source SARS-CoV-2 (PCR) Influenza Type A (PCR) Influenza Type B (PCR) RSV (PCR) Add-On Test Request 05/08/25 05/08/25 05/08/25 03:45 03:46 04:45 WBC RBC Hgb Hct MCV MCH MCHC RDW Plt Count MPV Immature Gran % Neutrophils % Lymphocytes % Monocytes % Eosinophils % Basophils % Nucleated RBC % Absolute Neutrophils Absolute Lymphocytes Absolute Monocytes Absolute Eosinophils Absolute Basophils D-Dimer VBG pH Cancelled Cancelled VBG pCO2 Cancelled Cancelled VBG pO2 Cancelled Cancelled VBG HCO3 Cancelled Cancelled VBG Total CO2 Cancelled Cancelled VBG O2 Saturation Cancelled Cancelled VBG Base Excess Cancelled Cancelled VBG Lactate Sodium Potassium Chloride Carbon Dioxide Anion Gap BUN Creatinine Est GFR (CKD-EPI 2020) Glucose Calcium Magnesium Total Bilirubin AST ALT Alkaline Phosphatase Troponin I NT-Pro-B Natriuret Pep Total Protein Albumin TSH Urine Color Urine Clarity Urine pH Ur Specific [place] Urine Protein Urine Ketones Urine Blood Urine Nitrite Urine Bilirubin Urine Urobilinogen Ur Leukocyte Esterase Urine RBC Urine WBC Ur Epithelial Cells Urine Crystals Urine Bacteria Urine Casts Urine Mucus Ur Culture Indicated? Urine Glucose COVID-19 Source SARS-CoV-2 (PCR) Influenza Type A (PCR) Influenza Type B (PCR) RSV (PCR) Add-On Test Request Cancelled 05/08/25 05/08/25 05/08/25 05:45 06:45 07:45 WBC RBC Hgb Hct MCV MCH MCHC RDW Plt Count MPV Immature Gran % Neutrophils % Lymphocytes % Monocytes % Eosinophils % Basophils % Nucleated RBC % Absolute Neutrophils Absolute Lymphocytes Absolute Monocytes Absolute Eosinophils Absolute Basophils D-Dimer VBG pH Cancelled Cancelled Cancelled VBG pCO2 Cancelled Cancelled Cancelled VBG pO2 Cancelled Cancelled Cancelled VBG HCO3 Cancelled Cancelled Cancelled VBG Total CO2 Cancelled Cancelled Cancelled VBG O2 Saturation Cancelled Cancelled Cancelled VBG Base Excess Cancelled Cancelled Cancelled VBG Lactate Sodium Potassium Chloride Carbon Dioxide Anion Gap BUN Creatinine Est GFR (CKD-EPI 2020) Glucose Calcium Magnesium Total Bilirubin AST ALT Alkaline Phosphatase Troponin I NT-Pro-B Natriuret Pep Total Protein Albumin TSH Urine Color Urine Clarity Urine pH Ur Specific [place] Urine Protein Urine Ketones Urine Blood Urine Nitrite Urine Bilirubin Urine Urobilinogen Ur Leukocyte Esterase Urine RBC Urine WBC Ur Epithelial Cells Urine Crystals Urine Bacteria Urine Casts Urine Mucus Ur Culture Indicated? Urine Glucose COVID-19 Source SARS-CoV-2 (PCR) Influenza Type A (PCR) Influenza Type B (PCR) RSV (PCR) Add-On Test Request 05/08/25 05/08/25 05/08/25 08:45 09:45 10:45 WBC RBC Hgb Hct MCV MCH MCHC RDW Plt Count MPV Immature Gran % Neutrophils % Lymphocytes % Monocytes % Eosinophils % Basophils % Nucleated RBC % Absolute Neutrophils Absolute Lymphocytes Absolute Monocytes Absolute Eosinophils Absolute Basophils D-Dimer VBG pH Cancelled Cancelled Cancelled VBG pCO2 Cancelled Cancelled Cancelled VBG pO2 Cancelled Cancelled Cancelled VBG HCO3 Cancelled Cancelled Cancelled VBG Total CO2 Cancelled Cancelled Cancelled VBG O2 Saturation Cancelled Cancelled Cancelled VBG Base Excess Cancelled Cancelled Cancelled VBG Lactate Sodium Potassium Chloride Carbon Dioxide Anion Gap BUN Creatinine Est GFR (CKD-EPI 2020) Glucose Calcium Magnesium Total Bilirubin AST ALT Alkaline Phosphatase Troponin I NT-Pro-B Natriuret Pep Total Protein Albumin TSH Urine Color Urine Clarity Urine pH Ur Specific [place] Urine Protein Urine Ketones Urine Blood Urine Nitrite Urine Bilirubin Urine Urobilinogen Ur Leukocyte Esterase Urine RBC Urine WBC Ur Epithelial Cells Urine Crystals Urine Bacteria Urine Casts Urine Mucus Ur Culture Indicated? Urine Glucose COVID-19 Source SARS-CoV-2 (PCR) Influenza Type A (PCR) Influenza Type B (PCR) RSV (PCR) Add-On Test Request 05/08/25 05/08/25 05/08/25 11:45 12:45 13:45 WBC RBC Hgb Hct MCV MCH MCHC RDW Plt Count MPV Immature Gran % Neutrophils % Lymphocytes % Monocytes % Eosinophils % Basophils % Nucleated RBC % Absolute Neutrophils Absolute Lymphocytes Absolute Monocytes Absolute Eosinophils Absolute Basophils D-Dimer VBG pH Cancelled Cancelled Cancelled VBG pCO2 Cancelled Cancelled Cancelled VBG pO2 Cancelled Cancelled Cancelled VBG HCO3 Cancelled Cancelled Cancelled VBG Total CO2 Cancelled Cancelled Cancelled VBG O2 Saturation Cancelled Cancelled Cancelled VBG Base Excess Cancelled Cancelled Cancelled VBG Lactate Sodium Potassium Chloride Carbon Dioxide Anion Gap BUN Creatinine Est GFR (CKD-EPI 2020) Glucose Calcium Magnesium Total Bilirubin AST ALT Alkaline Phosphatase Troponin I NT-Pro-B Natriuret Pep Total Protein Albumin TSH Urine Color Urine Clarity Urine pH Ur Specific [place] Urine Protein Urine Ketones Urine Blood Urine Nitrite Urine Bilirubin Urine Urobilinogen Ur Leukocyte Esterase Urine RBC Urine WBC Ur Epithelial Cells Urine Crystals Urine Bacteria Urine Casts Urine Mucus Ur Culture Indicated? Urine Glucose COVID-19 Source SARS-CoV-2 (PCR) Influenza Type A (PCR) Influenza Type B (PCR) RSV (PCR) Add-On Test Request 05/08/25 05/08/25 05/08/25 14:45 15:45 16:45 WBC RBC Hgb Hct MCV MCH MCHC RDW Plt Count MPV Immature Gran % Neutrophils % Lymphocytes % Monocytes % Eosinophils % Basophils % Nucleated RBC % Absolute Neutrophils Absolute Lymphocytes Absolute Monocytes Absolute Eosinophils Absolute Basophils D-Dimer VBG pH Cancelled Cancelled Cancelled VBG pCO2 Cancelled Cancelled Cancelled VBG pO2 Cancelled Cancelled Cancelled VBG HCO3 Cancelled Cancelled Cancelled VBG Total CO2 Cancelled Cancelled Cancelled VBG O2 Saturation Cancelled Cancelled Cancelled VBG Base Excess Cancelled Cancelled Cancelled VBG Lactate Sodium Potassium Chloride Carbon Dioxide Anion Gap BUN Creatinine Est GFR (CKD-EPI 2020) Glucose Calcium Magnesium Total Bilirubin AST ALT Alkaline Phosphatase Troponin I NT-Pro-B Natriuret Pep Total Protein Albumin TSH Urine Color Urine Clarity Urine pH Ur Specific [place] Urine Protein Urine Ketones Urine Blood Urine Nitrite Urine Bilirubin Urine Urobilinogen Ur Leukocyte Esterase Urine RBC Urine WBC Ur Epithelial Cells Urine Crystals Urine Bacteria Urine Casts Urine Mucus Ur Culture Indicated? Urine Glucose COVID-19 Source SARS-CoV-2 (PCR) Influenza Type A (PCR) Influenza Type B (PCR) RSV (PCR) Add-On Test Request 05/08/25 05/08/25 05/08/25 17:45 18:45 19:45 WBC RBC Hgb Hct MCV MCH MCHC RDW Plt Count MPV Immature Gran % Neutrophils % Lymphocytes % Monocytes % Eosinophils % Basophils % Nucleated RBC % Absolute Neutrophils Absolute Lymphocytes Absolute Monocytes Absolute Eosinophils Absolute Basophils D-Dimer VBG pH Cancelled Cancelled Cancelled VBG pCO2 Cancelled Cancelled Cancelled VBG pO2 Cancelled Cancelled Cancelled VBG HCO3 Cancelled Cancelled Cancelled VBG Total CO2 Cancelled Cancelled Cancelled VBG O2 Saturation Cancelled Cancelled Cancelled VBG Base Excess Cancelled Cancelled Cancelled VBG Lactate Sodium Potassium Chloride Carbon Dioxide Anion Gap BUN Creatinine Est GFR (CKD-EPI 2020) Glucose Calcium Magnesium Total Bilirubin AST ALT Alkaline Phosphatase Troponin I NT-Pro-B Natriuret Pep Total Protein Albumin TSH Urine Color Urine Clarity Urine pH Ur Specific [place] Urine Protein Urine Ketones Urine Blood Urine Nitrite Urine Bilirubin Urine Urobilinogen Ur Leukocyte Esterase Urine RBC Urine WBC Ur Epithelial Cells Urine Crystals Urine Bacteria Urine Casts Urine Mucus Ur Culture Indicated? Urine Glucose COVID-19 Source SARS-CoV-2 (PCR) Influenza Type A (PCR) Influenza Type B (PCR) RSV (PCR) Add-On Test Request 05/08/25 05/08/25 05/08/25 20:45 21:45 22:45 WBC RBC Hgb Hct MCV MCH MCHC RDW Plt Count MPV Immature Gran % Neutrophils % Lymphocytes % Monocytes % Eosinophils % Basophils % Nucleated RBC % Absolute Neutrophils Absolute Lymphocytes Absolute Monocytes Absolute Eosinophils Absolute Basophils D-Dimer VBG pH Cancelled Cancelled Cancelled VBG pCO2 Cancelled Cancelled Cancelled VBG pO2 Cancelled Cancelled Cancelled VBG HCO3 Cancelled Cancelled Cancelled VBG Total CO2 Cancelled Cancelled Cancelled VBG O2 Saturation Cancelled Cancelled Cancelled VBG Base Excess Cancelled Cancelled Cancelled VBG Lactate Sodium Potassium Chloride Carbon Dioxide Anion Gap BUN Creatinine Est GFR (CKD-EPI 2020) Glucose Calcium Magnesium Total Bilirubin AST ALT Alkaline Phosphatase Troponin I NT-Pro-B Natriuret Pep Total Protein Albumin TSH Urine Color Urine Clarity Urine pH Ur Specific [place] Urine Protein Urine Ketones Urine Blood Urine Nitrite Urine Bilirubin Urine Urobilinogen Ur Leukocyte Esterase Urine RBC Urine WBC Ur Epithelial Cells Urine Crystals Urine Bacteria Urine Casts Urine Mucus Ur Culture Indicated? Urine Glucose COVID-19 Source SARS-CoV-2 (PCR) Influenza Type A (PCR) Influenza Type B (PCR) RSV (PCR) Add-On Test Request 05/08/25 23:45 WBC RBC Hgb Hct MCV MCH MCHC RDW Plt Count MPV Immature Gran % Neutrophils % Lymphocytes % Monocytes % Eosinophils % Basophils % Nucleated RBC % Absolute Neutrophils Absolute Lymphocytes Absolute Monocytes Absolute Eosinophils Absolute Basophils D-Dimer VBG pH Cancelled VBG pCO2 Cancelled VBG pO2 Cancelled VBG HCO3 Cancelled VBG Total CO2 Cancelled VBG O2 Saturation Cancelled VBG Base Excess Cancelled VBG Lactate Sodium Potassium Chloride Carbon Dioxide Anion Gap BUN Creatinine Est GFR (CKD-EPI 2020) Glucose Calcium Magnesium Total Bilirubin AST ALT Alkaline Phosphatase Troponin I NT-Pro-B Natriuret Pep Total Protein Albumin TSH Urine Color Urine Clarity Urine pH Ur Specific [place] Urine Protein Urine Ketones Urine Blood Urine Nitrite Urine Bilirubin Urine Urobilinogen Ur Leukocyte Esterase Urine RBC Urine WBC Ur Epithelial Cells Urine Crystals Urine Bacteria Urine Casts Urine Mucus Ur Culture Indicated? Urine Glucose COVID-19 Source SARS-CoV-2 (PCR) Influenza Type A (PCR) Influenza Type B (PCR) RSV (PCR) Add-On Test Request Last Vital Signs Temp 37.8 C H 05/08/25 00:50 Pulse 76 05/08/25 03:58 Resp 21 05/08/25 03:58 BP 119/89 05/08/25 03:22 Pulse Ox 92 05/08/25 03:58 VTE Prohylaxis Risk Level: Moderate/High Risk Contraindications: Medical contrainidcation (Risk of falls with low platelet count,on Xarelto) Prophylaxis: Mechanical Time Spent Time spent with Patient: >75 minutes Time was spent: preparing to see the patient(eg.review tests), obtaining and/or reviewing separately otained hiistory, ordering medications,tests, procedures, referring, communicating with other health customer care manager, indepentently interpreting results, counseling the patient and care coordination
--- NOTE | 2025-05-08 04:30 | NUR.NOTE ---
Nursing Note: Called Beatriz Palmer for med rec information as patient was sent without paperwork. Unable to reach anyone, left voicemail on confidential nurses station line with call back number. [place] [facility] [place]
[2025-05-08 04:41] LABS: BE (Venous) 10 mmol/L (-2-3); HCO3 (Venous) 37 mmol/L (23-28); O2 Sat (Venous) 43 %; TCO2 (Venous) 34 mmol/L (24-29); pO2 (Venous) 28 mmHg
[2025-05-08 04:43] LABS: pCO2 (Venous) 88 mmHg (41-51)
[2025-05-08 05:00] LABS: Troponin I 17 ng/L (<54)
--- NOTE | 2025-05-08 05:45 | W.PCEDHO ---
Registration Status: REG ER Primary Language: Preferred Language: [place] ED Information & Data Chief Complaint RespSymp 05/08/25 01:21 Triage Note Periods of grunting 05/08/25 00:36 respirations, hypoxic without O2, PT reports feeling fine. Encountered FD tonight after falling out of bed. Medical / Surgical History (Last Reviewed 05/08/25 @ 04:27 by Terrence Summers) Palliative care encounter Cognitive decline Supratherapeutic INR Anxiety Atrial fibrillation Chronic obstructive lung disease Hyperlipidemia Essential hypertension (03/16/13) Diabetes mellitus (Last Reviewed 05/08/25 @ 04:27 by Terrence Summers) Hx of cataract surgery Hx of colonoscopy Repair of inguinal hernia (~1975) CARDIOVERSION (~2002) Most Recent Vital Signs Temperature 37.8 C H 05/08/25 00:50 Pulse 73 05/08/25 05:31 Pulse 81 05/08/25 05:40 Respiratory Rate 18 05/08/25 05:40 Respiratory Effort Labored 05/08/25 04:41 Blood Pressure 124/61 05/08/25 05:31 Blood Pressure Mean 74 05/08/25 05:31 Blood Pressure Position Sitting 05/08/25 00:50 Pulse Oximetry 93 05/08/25 05:30 Oxygen Delivery Method Bi-pap 05/08/25 03:58 Oxygen Flow Rate 0 05/08/25 00:50 Fraction of Inspired Oxygen (FIO2) 40 05/08/25 03:58 Allergies ibuprofen Allergy (Unknown, Verified 05/08/25 04:35) ITCHING simvastatin Adverse Reaction (Intermediate, Verified 05/08/25 04:35) ? OF NEUROPATHY OF FEET ILENE Inhibitors Adverse Reaction (Unknown, Verified 05/08/25 04:35) COUGH IV IV Catheter Type [Right Saline Lock Forearm] IV Catheter Type [Left Saline Lock Antecubital] IV Catheter Gauge [Right 18 Forearm] IV Catheter Gauge [Left 18 Antecubital] Diagnostics 05/08/25 05/08/25 05/08/25 Range/Units 23:45 22:45 21:45 WBC (4.4-10.8) 10^3/uL RBC (4.36-5.78) 10^6/uL Hgb (13.5-17.5) g/dL Hct (40.0-50.0) % MCV (80-95) fL MCH (27.0-33.0) pg MCHC (32.0-36.0) % RDW (11.8-14.1) % Plt Count (130-400) 10^3/uL MPV (8.0-11.0) fL Immature Gran % % Neutrophils % % Lymphocytes % % Monocytes % % Eosinophils % % Basophils % % Nucleated RBC % (0.0-0.3) % Absolute Neutrophils (1.2-6.7) 10^3/uL Absolute Lymphocytes (1.2-3.4) 10^3/uL Absolute Monocytes (0.1-0.8) 10^3/uL Absolute Eosinophils (0.0-0.7) 10^3/uL Absolute Basophils (0.0-0.2) 10^3/uL D-Dimer (<500) ng/mlFEU VBG pH Cancelled Cancelled Cancelled (7.31-7.41) VBG pCO2 Cancelled Cancelled Cancelled (41-51) mmHg VBG pO2 Cancelled Cancelled Cancelled mmHg VBG HCO3 Cancelled Cancelled Cancelled (23-28) mmol/L VBG Total CO2 Cancelled Cancelled Cancelled (24-29) mmol/L VBG O2 Saturation Cancelled Cancelled Cancelled % VBG Base Excess Cancelled Cancelled Cancelled (-2-3) mmol/L VBG Lactate (<or=2.0) mmol/L Sodium (136-145) mmol/L Potassium (3.5-5.1) mmol/L Chloride (98-107) mmol/L Carbon Dioxide (20.0-31.0) mmol/L Anion Gap (3-11) mmol/L BUN (9-23) mg/dL Creatinine (0.73-1.18) mg/dL Est GFR (CKD-EPI 2020) (mL/min/1.73m2) Glucose (74-106) mg/dL Calcium (8.3-10.6) mg/dL Magnesium (1.6-2.6) mg/dL Total Bilirubin (0.2-1.2) mg/dL AST (<34) U/L ALT (10-49) U/L Alkaline Phosphatase (46-116) U/L Troponin I (<54) ng/L NT-Pro-B Natriuret Pep (<300) pg/mL Total Protein (5.7-8.2) g/dL Albumin (3.2-5.0) g/dL TSH (0.55-4.78) uIU/mL Urine Color (Yellow) Urine Clarity (Clear) Urine pH (5-8) Ur Specific [place] (1.005-1.025) Urine Protein (Neg-Trace) mg/dL Urine Ketones (Negative) mg/dL Urine Blood (Negative) Urine Nitrite (Negative) Urine Bilirubin (Negative) Urine Urobilinogen (Up to 0.2) mg/dL Ur Leukocyte Esterase (Negative) Urine RBC (0-2) HPF Urine WBC (0-5) HPF Ur Epithelial Cells (Negative) HPF Urine Crystals (Negative) HPF Urine Bacteria (Negative) HPF Urine Casts (Negative) LPF Urine Mucus (Negative) Ur Culture Indicated? Urine Glucose (Negative) mg/dL COVID-19 Source SARS-CoV-2 (PCR) (Negative) Influenza Type A (PCR) (Negative) Influenza Type B (PCR) (Negative) RSV (PCR) (Negative) Add-On Test Request 05/08/25 05/08/25 05/08/25 Range/Units 20:45 19:45 18:45 WBC (4.4-10.8) 10^3/uL RBC (4.36-5.78) 10^6/uL Hgb (13.5-17.5) g/dL Hct (40.0-50.0) % MCV (80-95) fL MCH (27.0-33.0) pg MCHC (32.0-36.0) % RDW (11.8-14.1) % Plt Count (130-400) 10^3/uL MPV (8.0-11.0) fL Immature Gran % % Neutrophils % % Lymphocytes % % Monocytes % % Eosinophils % % Basophils % % Nucleated RBC % (0.0-0.3) % Absolute Neutrophils (1.2-6.7) 10^3/uL Absolute Lymphocytes (1.2-3.4) 10^3/uL Absolute Monocytes (0.1-0.8) 10^3/uL Absolute Eosinophils (0.0-0.7) 10^3/uL Absolute Basophils (0.0-0.2) 10^3/uL D-Dimer (<500) ng/mlFEU VBG pH Cancelled Cancelled Cancelled (7.31-7.41) VBG pCO2 Cancelled Cancelled Cancelled (41-51) mmHg VBG pO2 Cancelled Cancelled Cancelled mmHg VBG HCO3 Cancelled Cancelled Cancelled (23-28) mmol/L VBG Total CO2 Cancelled Cancelled Cancelled (24-29) mmol/L VBG O2 Saturation Cancelled Cancelled Cancelled % VBG Base Excess Cancelled Cancelled Cancelled (-2-3) mmol/L VBG Lactate (<or=2.0) mmol/L Sodium (136-145) mmol/L Potassium (3.5-5.1) mmol/L Chloride (98-107) mmol/L Carbon Dioxide (20.0-31.0) mmol/L Anion Gap (3-11) mmol/L BUN (9-23) mg/dL Creatinine (0.73-1.18) mg/dL Est GFR (CKD-EPI 2020) (mL/min/1.73m2) Glucose (74-106) mg/dL Calcium (8.3-10.6) mg/dL Magnesium (1.6-2.6) mg/dL Total Bilirubin (0.2-1.2) mg/dL AST (<34) U/L ALT (10-49) U/L Alkaline Phosphatase (46-116) U/L Troponin I (<54) ng/L NT-Pro-B Natriuret Pep (<300) pg/mL Total Protein (5.7-8.2) g/dL Albumin (3.2-5.0) g/dL TSH (0.55-4.78) uIU/mL Urine Color (Yellow) Urine Clarity (Clear) Urine pH (5-8) Ur Specific [place] (1.005-1.025) Urine Protein (Neg-Trace) mg/dL Urine Ketones (Negative) mg/dL Urine Blood (Negative) Urine Nitrite (Negative) Urine Bilirubin (Negative) Urine Urobilinogen (Up to 0.2) mg/dL Ur Leukocyte Esterase (Negative) Urine RBC (0-2) HPF Urine WBC (0-5) HPF Ur Epithelial Cells (Negative) HPF Urine Crystals (Negative) HPF Urine Bacteria (Negative) HPF Urine Casts (Negative) LPF Urine Mucus (Negative) Ur Culture Indicated? Urine Glucose (Negative) mg/dL COVID-19 Source SARS-CoV-2 (PCR) (Negative) Influenza Type A (PCR) (Negative) Influenza Type B (PCR) (Negative) RSV (PCR) (Negative) Add-On Test Request 05/08/25 05/08/25 05/08/25 Range/Units 17:45 16:45 15:45 WBC (4.4-10.8) 10^3/uL RBC (4.36-5.78) 10^6/uL Hgb (13.5-17.5) g/dL Hct (40.0-50.0) % MCV (80-95) fL MCH (27.0-33.0) pg MCHC (32.0-36.0) % RDW (11.8-14.1) % Plt Count (130-400) 10^3/uL MPV (8.0-11.0) fL Immature Gran % % Neutrophils % % Lymphocytes % % Monocytes % % Eosinophils % % Basophils % % Nucleated RBC % (0.0-0.3) % Absolute Neutrophils (1.2-6.7) 10^3/uL Absolute Lymphocytes (1.2-3.4) 10^3/uL Absolute Monocytes (0.1-0.8) 10^3/uL Absolute Eosinophils (0.0-0.7) 10^3/uL Absolute Basophils (0.0-0.2) 10^3/uL D-Dimer (<500) ng/mlFEU VBG pH Cancelled Cancelled Cancelled (7.31-7.41) VBG pCO2 Cancelled Cancelled Cancelled (41-51) mmHg VBG pO2 Cancelled Cancelled Cancelled mmHg VBG HCO3 Cancelled Cancelled Cancelled (23-28) mmol/L VBG Total CO2 Cancelled Cancelled Cancelled (24-29) mmol/L VBG O2 Saturation Cancelled Cancelled Cancelled % VBG Base Excess Cancelled Cancelled Cancelled (-2-3) mmol/L VBG Lactate (<or=2.0) mmol/L Sodium (136-145) mmol/L Potassium (3.5-5.1) mmol/L Chloride (98-107) mmol/L Carbon Dioxide (20.0-31.0) mmol/L Anion Gap (3-11) mmol/L BUN (9-23) mg/dL Creatinine (0.73-1.18) mg/dL Est GFR (CKD-EPI 2020) (mL/min/1.73m2) Glucose (74-106) mg/dL Calcium (8.3-10.6) mg/dL Magnesium (1.6-2.6) mg/dL Total Bilirubin (0.2-1.2) mg/dL AST (<34) U/L ALT (10-49) U/L Alkaline Phosphatase (46-116) U/L Troponin I (<54) ng/L NT-Pro-B Natriuret Pep (<300) pg/mL Total Protein (5.7-8.2) g/dL Albumin (3.2-5.0) g/dL TSH (0.55-4.78) uIU/mL Urine Color (Yellow) Urine Clarity (Clear) Urine pH (5-8) Ur Specific [place] (1.005-1.025) Urine Protein (Neg-Trace) mg/dL Urine Ketones (Negative) mg/dL Urine Blood (Negative) Urine Nitrite (Negative) Urine Bilirubin (Negative) Urine Urobilinogen (Up to 0.2) mg/dL Ur Leukocyte Esterase (Negative) Urine RBC (0-2) HPF Urine WBC (0-5) HPF Ur Epithelial Cells (Negative) HPF Urine Crystals (Negative) HPF Urine Bacteria (Negative) HPF Urine Casts (Negative) LPF Urine Mucus (Negative) Ur Culture Indicated? Urine Glucose (Negative) mg/dL COVID-19 Source SARS-CoV-2 (PCR) (Negative) Influenza Type A (PCR) (Negative) Influenza Type B (PCR) (Negative) RSV (PCR) (Negative) Add-On Test Request 05/08/25 05/08/25 05/08/25 Range/Units 14:45 13:45 12:45 WBC (4.4-10.8) 10^3/uL RBC (4.36-5.78) 10^6/uL Hgb (13.5-17.5) g/dL Hct (40.0-50.0) % MCV (80-95) fL MCH (27.0-33.0) pg MCHC (32.0-36.0) % RDW (11.8-14.1) % Plt Count (130-400) 10^3/uL MPV (8.0-11.0) fL Immature Gran % % Neutrophils % % Lymphocytes % % Monocytes % % Eosinophils % % Basophils % % Nucleated RBC % (0.0-0.3) % Absolute Neutrophils (1.2-6.7) 10^3/uL Absolute Lymphocytes (1.2-3.4) 10^3/uL Absolute Monocytes (0.1-0.8) 10^3/uL Absolute Eosinophils (0.0-0.7) 10^3/uL Absolute Basophils (0.0-0.2) 10^3/uL D-Dimer (<500) ng/mlFEU VBG pH Cancelled Cancelled Cancelled (7.31-7.41) VBG pCO2 Cancelled Cancelled Cancelled (41-51) mmHg VBG pO2 Cancelled Cancelled Cancelled mmHg VBG HCO3 Cancelled Cancelled Cancelled (23-28) mmol/L VBG Total CO2 Cancelled Cancelled Cancelled (24-29) mmol/L VBG O2 Saturation Cancelled Cancelled Cancelled % VBG Base Excess Cancelled Cancelled Cancelled (-2-3) mmol/L VBG Lactate (<or=2.0) mmol/L Sodium (136-145) mmol/L Potassium (3.5-5.1) mmol/L Chloride (98-107) mmol/L Carbon Dioxide (20.0-31.0) mmol/L Anion Gap (3-11) mmol/L BUN (9-23) mg/dL Creatinine (0.73-1.18) mg/dL Est GFR (CKD-EPI 2020) (mL/min/1.73m2) Glucose (74-106) mg/dL Calcium (8.3-10.6) mg/dL Magnesium (1.6-2.6) mg/dL Total Bilirubin (0.2-1.2) mg/dL AST (<34) U/L ALT (10-49) U/L Alkaline Phosphatase (46-116) U/L Troponin I (<54) ng/L NT-Pro-B Natriuret Pep (<300) pg/mL Total Protein (5.7-8.2) g/dL Albumin (3.2-5.0) g/dL TSH (0.55-4.78) uIU/mL Urine Color (Yellow) Urine Clarity (Clear) Urine pH (5-8) Ur Specific [place] (1.005-1.025) Urine Protein (Neg-Trace) mg/dL Urine Ketones (Negative) mg/dL Urine Blood (Negative) Urine Nitrite (Negative) Urine Bilirubin (Negative) Urine Urobilinogen (Up to 0.2) mg/dL Ur Leukocyte Esterase (Negative) Urine RBC (0-2) HPF Urine WBC (0-5) HPF Ur Epithelial Cells (Negative) HPF Urine Crystals (Negative) HPF Urine Bacteria (Negative) HPF Urine Casts (Negative) LPF Urine Mucus (Negative) Ur Culture Indicated? Urine Glucose (Negative) mg/dL COVID-19 Source SARS-CoV-2 (PCR) (Negative) Influenza Type A (PCR) (Negative) Influenza Type B (PCR) (Negative) RSV (PCR) (Negative) Add-On Test Request 05/08/25 05/08/25 05/08/25 Range/Units 11:45 10:45 09:45 WBC (4.4-10.8) 10^3/uL RBC (4.36-5.78) 10^6/uL Hgb (13.5-17.5) g/dL Hct (40.0-50.0) % MCV (80-95) fL MCH (27.0-33.0) pg MCHC (32.0-36.0) % RDW (11.8-14.1) % Plt Count (130-400) 10^3/uL MPV (8.0-11.0) fL Immature Gran % % Neutrophils % % Lymphocytes % % Monocytes % % Eosinophils % % Basophils % % Nucleated RBC % (0.0-0.3) % Absolute Neutrophils (1.2-6.7) 10^3/uL Absolute Lymphocytes (1.2-3.4) 10^3/uL Absolute Monocytes (0.1-0.8) 10^3/uL Absolute Eosinophils (0.0-0.7) 10^3/uL Absolute Basophils (0.0-0.2) 10^3/uL D-Dimer (<500) ng/mlFEU VBG pH Cancelled Cancelled Cancelled (7.31-7.41) VBG pCO2 Cancelled Cancelled Cancelled (41-51) mmHg VBG pO2 Cancelled Cancelled Cancelled mmHg VBG HCO3 Cancelled Cancelled Cancelled (23-28) mmol/L VBG Total CO2 Cancelled Cancelled Cancelled (24-29) mmol/L VBG O2 Saturation Cancelled Cancelled Cancelled % VBG Base Excess Cancelled Cancelled Cancelled (-2-3) mmol/L VBG Lactate (<or=2.0) mmol/L Sodium (136-145) mmol/L Potassium (3.5-5.1) mmol/L Chloride (98-107) mmol/L Carbon Dioxide (20.0-31.0) mmol/L Anion Gap (3-11) mmol/L BUN (9-23) mg/dL Creatinine (0.73-1.18) mg/dL Est GFR (CKD-EPI 2020) (mL/min/1.73m2) Glucose (74-106) mg/dL Calcium (8.3-10.6) mg/dL Magnesium (1.6-2.6) mg/dL Total Bilirubin (0.2-1.2) mg/dL AST (<34) U/L ALT (10-49) U/L Alkaline Phosphatase (46-116) U/L Troponin I (<54) ng/L NT-Pro-B Natriuret Pep (<300) pg/mL Total Protein (5.7-8.2) g/dL Albumin (3.2-5.0) g/dL TSH (0.55-4.78) uIU/mL Urine Color (Yellow) Urine Clarity (Clear) Urine pH (5-8) Ur Specific [place] (1.005-1.025) Urine Protein (Neg-Trace) mg/dL Urine Ketones (Negative) mg/dL Urine Blood (Negative) Urine Nitrite (Negative) Urine Bilirubin (Negative) Urine Urobilinogen (Up to 0.2) mg/dL Ur Leukocyte Esterase (Negative) Urine RBC (0-2) HPF Urine WBC (0-5) HPF Ur Epithelial Cells (Negative) HPF Urine Crystals (Negative) HPF Urine Bacteria (Negative) HPF Urine Casts (Negative) LPF Urine Mucus (Negative) Ur Culture Indicated? Urine Glucose (Negative) mg/dL COVID-19 Source SARS-CoV-2 (PCR) (Negative) Influenza Type A (PCR) (Negative) Influenza Type B (PCR) (Negative) RSV (PCR) (Negative) Add-On Test Request 05/08/25 05/08/25 05/08/25 Range/Units 08:45 07:45 06:45 WBC (4.4-10.8) 10^3/uL RBC (4.36-5.78) 10^6/uL Hgb (13.5-17.5) g/dL Hct (40.0-50.0) % MCV (80-95) fL MCH (27.0-33.0) pg MCHC (32.0-36.0) % RDW (11.8-14.1) % Plt Count (130-400) 10^3/uL MPV (8.0-11.0) fL Immature Gran % % Neutrophils % % Lymphocytes % % Monocytes % % Eosinophils % % Basophils % % Nucleated RBC % (0.0-0.3) % Absolute Neutrophils (1.2-6.7) 10^3/uL Absolute Lymphocytes (1.2-3.4) 10^3/uL Absolute Monocytes (0.1-0.8) 10^3/uL Absolute Eosinophils (0.0-0.7) 10^3/uL Absolute Basophils (0.0-0.2) 10^3/uL D-Dimer (<500) ng/mlFEU VBG pH Cancelled Cancelled Cancelled (7.31-7.41) VBG pCO2 Cancelled Cancelled Cancelled (41-51) mmHg VBG pO2 Cancelled Cancelled Cancelled mmHg VBG HCO3 Cancelled Cancelled Cancelled (23-28) mmol/L VBG Total CO2 Cancelled Cancelled Cancelled (24-29) mmol/L VBG O2 Saturation Cancelled Cancelled Cancelled % VBG Base Excess Cancelled Cancelled Cancelled (-2-3) mmol/L VBG Lactate (<or=2.0) mmol/L Sodium (136-145) mmol/L Potassium (3.5-5.1) mmol/L Chloride (98-107) mmol/L Carbon Dioxide (20.0-31.0) mmol/L Anion Gap (3-11) mmol/L BUN (9-23) mg/dL Creatinine (0.73-1.18) mg/dL Est GFR (CKD-EPI 2020) (mL/min/1.73m2) Glucose (74-106) mg/dL Calcium (8.3-10.6) mg/dL Magnesium (1.6-2.6) mg/dL Total Bilirubin (0.2-1.2) mg/dL AST (<34) U/L ALT (10-49) U/L Alkaline Phosphatase (46-116) U/L Troponin I (<54) ng/L NT-Pro-B Natriuret Pep (<300) pg/mL Total Protein (5.7-8.2) g/dL Albumin (3.2-5.0) g/dL TSH (0.55-4.78) uIU/mL Urine Color (Yellow) Urine Clarity (Clear) Urine pH (5-8) Ur Specific [place] (1.005-1.025) Urine Protein (Neg-Trace) mg/dL Urine Ketones (Negative) mg/dL Urine Blood (Negative) Urine Nitrite (Negative) Urine Bilirubin (Negative) Urine Urobilinogen (Up to 0.2) mg/dL Ur Leukocyte Esterase (Negative) Urine RBC (0-2) HPF Urine WBC (0-5) HPF Ur Epithelial Cells (Negative) HPF Urine Crystals (Negative) HPF Urine Bacteria (Negative) HPF Urine Casts (Negative) LPF Urine Mucus (Negative) Ur Culture Indicated? Urine Glucose (Negative) mg/dL COVID-19 Source SARS-CoV-2 (PCR) (Negative) Influenza Type A (PCR) (Negative) Influenza Type B (PCR) (Negative) RSV (PCR) (Negative) Add-On Test Request 05/08/25 05/08/25 05/08/25 Range/Units 06:30 05:45 05:30 WBC (4.4-10.8) 10^3/uL RBC (4.36-5.78) 10^6/uL Hgb (13.5-17.5) g/dL Hct (40.0-50.0) % MCV (80-95) fL MCH (27.0-33.0) pg MCHC (32.0-36.0) % RDW (11.8-14.1) % Plt Count (130-400) 10^3/uL MPV (8.0-11.0) fL Immature Gran % % Neutrophils % % Lymphocytes % % Monocytes % % Eosinophils % % Basophils % % Nucleated RBC % (0.0-0.3) % Absolute Neutrophils (1.2-6.7) 10^3/uL Absolute Lymphocytes (1.2-3.4) 10^3/uL Absolute Monocytes (0.1-0.8) 10^3/uL Absolute Eosinophils (0.0-0.7) 10^3/uL Absolute Basophils (0.0-0.2) 10^3/uL D-Dimer (<500) ng/mlFEU VBG pH Pending Cancelled Pending (7.31-7.41) VBG pCO2 Pending Cancelled Pending (41-51) mmHg VBG pO2 Pending Cancelled Pending mmHg VBG HCO3 Pending Cancelled Pending (23-28) mmol/L VBG Total CO2 Pending Cancelled Pending (24-29) mmol/L VBG O2 Saturation Pending Cancelled Pending % VBG Base Excess Pending Cancelled Pending (-2-3) mmol/L VBG Lactate (<or=2.0) mmol/L Sodium (136-145) mmol/L Potassium (3.5-5.1) mmol/L Chloride (98-107) mmol/L Carbon Dioxide (20.0-31.0) mmol/L Anion Gap (3-11) mmol/L BUN (9-23) mg/dL Creatinine (0.73-1.18) mg/dL Est GFR (CKD-EPI 2020) (mL/min/1.73m2) Glucose (74-106) mg/dL Calcium (8.3-10.6) mg/dL Magnesium (1.6-2.6) mg/dL Total Bilirubin (0.2-1.2) mg/dL AST (<34) U/L ALT (10-49) U/L Alkaline Phosphatase (46-116) U/L Troponin I (<54) ng/L NT-Pro-B Natriuret Pep (<300) pg/mL Total Protein (5.7-8.2) g/dL Albumin (3.2-5.0) g/dL TSH (0.55-4.78) uIU/mL Urine Color (Yellow) Urine Clarity (Clear) Urine pH (5-8) Ur Specific [place] (1.005-1.025) Urine Protein (Neg-Trace) mg/dL Urine Ketones (Negative) mg/dL Urine Blood (Negative) Urine Nitrite (Negative) Urine Bilirubin (Negative) Urine Urobilinogen (Up to 0.2) mg/dL Ur Leukocyte Esterase (Negative) Urine RBC (0-2) HPF Urine WBC (0-5) HPF Ur Epithelial Cells (Negative) HPF Urine Crystals (Negative) HPF Urine Bacteria (Negative) HPF Urine Casts (Negative) LPF Urine Mucus (Negative) Ur Culture Indicated? Urine Glucose (Negative) mg/dL COVID-19 Source SARS-CoV-2 (PCR) (Negative) Influenza Type A (PCR) (Negative) Influenza Type B (PCR) (Negative) RSV (PCR) (Negative) Add-On Test Request 05/08/25 05/08/25 05/08/25 Range/Units 04:45 04:38 03:46 WBC (4.4-10.8) 10^3/uL RBC (4.36-5.78) 10^6/uL Hgb (13.5-17.5) g/dL Hct (40.0-50.0) % MCV (80-95) fL MCH (27.0-33.0) pg MCHC (32.0-36.0) % RDW (11.8-14.1) % Plt Count (130-400) 10^3/uL MPV (8.0-11.0) fL Immature Gran % % Neutrophils % % Lymphocytes % % Monocytes % % Eosinophils % % Basophils % % Nucleated RBC % (0.0-0.3) % Absolute Neutrophils (1.2-6.7) 10^3/uL Absolute Lymphocytes (1.2-3.4) 10^3/uL Absolute Monocytes (0.1-0.8) 10^3/uL Absolute Eosinophils (0.0-0.7) 10^3/uL Absolute Basophils (0.0-0.2) 10^3/uL D-Dimer (<500) ng/mlFEU VBG pH Cancelled 7.23 L (7.31-7.41) VBG pCO2 Cancelled 88 H* (41-51) mmHg VBG pO2 Cancelled 28 mmHg VBG HCO3 Cancelled 37 H (23-28) mmol/L VBG Total CO2 Cancelled 34 H (24-29) mmol/L VBG O2 Saturation Cancelled 43 % VBG Base Excess Cancelled 10 H (-2-3) mmol/L VBG Lactate (<or=2.0) mmol/L Sodium (136-145) mmol/L Potassium (3.5-5.1) mmol/L Chloride (98-107) mmol/L Carbon Dioxide (20.0-31.0) mmol/L Anion Gap (3-11) mmol/L BUN (9-23) mg/dL Creatinine (0.73-1.18) mg/dL Est GFR (CKD-EPI 2020) (mL/min/1.73m2) Glucose (74-106) mg/dL Calcium (8.3-10.6) mg/dL Magnesium (1.6-2.6) mg/dL Total Bilirubin (0.2-1.2) mg/dL AST (<34) U/L ALT (10-49) U/L Alkaline Phosphatase (46-116) U/L Troponin I 17 (<54) ng/L NT-Pro-B Natriuret Pep (<300) pg/mL Total Protein (5.7-8.2) g/dL Albumin (3.2-5.0) g/dL TSH (0.55-4.78) uIU/mL Urine Color (Yellow) Urine Clarity (Clear) Urine pH (5-8) Ur Specific [place] (1.005-1.025) Urine Protein (Neg-Trace) mg/dL Urine Ketones (Negative) mg/dL Urine Blood (Negative) Urine Nitrite (Negative) Urine Bilirubin (Negative) Urine Urobilinogen (Up to 0.2) mg/dL Ur Leukocyte Esterase (Negative) Urine RBC (0-2) HPF Urine WBC (0-5) HPF Ur Epithelial Cells (Negative) HPF Urine Crystals (Negative) HPF Urine Bacteria (Negative) HPF Urine Casts (Negative) LPF Urine Mucus (Negative) Ur Culture Indicated? Urine Glucose (Negative) mg/dL COVID-19 Source SARS-CoV-2 (PCR) (Negative) Influenza Type A (PCR) (Negative) Influenza Type B (PCR) (Negative) RSV (PCR) (Negative) Add-On Test Request Cancelled 05/08/25 05/08/25 05/08/25 Range/Units 03:45 03:35 02:45 WBC (4.4-10.8) 10^3/uL RBC (4.36-5.78) 10^6/uL Hgb (13.5-17.5) g/dL Hct (40.0-50.0) % MCV (80-95) fL MCH (27.0-33.0) pg MCHC (32.0-36.0) % RDW (11.8-14.1) % Plt Count (130-400) 10^3/uL MPV (8.0-11.0) fL Immature Gran % % Neutrophils % % Lymphocytes % % Monocytes % % Eosinophils % % Basophils % % Nucleated RBC % (0.0-0.3) % Absolute Neutrophils (1.2-6.7) 10^3/uL Absolute Lymphocytes (1.2-3.4) 10^3/uL Absolute Monocytes (0.1-0.8) 10^3/uL Absolute Eosinophils (0.0-0.7) 10^3/uL Absolute Basophils (0.0-0.2) 10^3/uL D-Dimer (<500) ng/mlFEU VBG pH Cancelled 7.22 L Cancelled (7.31-7.41) VBG pCO2 Cancelled 83 H* Cancelled (41-51) mmHg VBG pO2 Cancelled 34 Cancelled mmHg VBG HCO3 Cancelled 34 H Cancelled (23-28) mmol/L VBG Total CO2 Cancelled 32 H Cancelled (24-29) mmol/L VBG O2 Saturation Cancelled 54 Cancelled % VBG Base Excess Cancelled 6 H Cancelled (-2-3) mmol/L VBG Lactate (<or=2.0) mmol/L Sodium (136-145) mmol/L Potassium 5.0 (3.5-5.1) mmol/L Chloride (98-107) mmol/L Carbon Dioxide (20.0-31.0) mmol/L Anion Gap (3-11) mmol/L BUN (9-23) mg/dL Creatinine (0.73-1.18) mg/dL Est GFR (CKD-EPI 2020) (mL/min/1.73m2) Glucose (74-106) mg/dL Calcium (8.3-10.6) mg/dL Magnesium (1.6-2.6) mg/dL Total Bilirubin (0.2-1.2) mg/dL AST (<34) U/L ALT (10-49) U/L Alkaline Phosphatase (46-116) U/L Troponin I (<54) ng/L NT-Pro-B Natriuret Pep (<300) pg/mL Total Protein (5.7-8.2) g/dL Albumin (3.2-5.0) g/dL TSH (0.55-4.78) uIU/mL Urine Color (Yellow) Urine Clarity (Clear) Urine pH (5-8) Ur Specific [place] (1.005-1.025) Urine Protein (Neg-Trace) mg/dL Urine Ketones (Negative) mg/dL Urine Blood (Negative) Urine Nitrite (Negative) Urine Bilirubin (Negative) Urine Urobilinogen (Up to 0.2) mg/dL Ur Leukocyte Esterase (Negative) Urine RBC (0-2) HPF Urine WBC (0-5) HPF Ur Epithelial Cells (Negative) HPF Urine Crystals (Negative) HPF Urine Bacteria (Negative) HPF Urine Casts (Negative) LPF Urine Mucus (Negative) Ur Culture Indicated? Urine Glucose (Negative) mg/dL COVID-19 Source SARS-CoV-2 (PCR) (Negative) Influenza Type A (PCR) (Negative) Influenza Type B (PCR) (Negative) RSV (PCR) (Negative) Add-On Test Request 05/08/25 05/08/25 05/08/25 Range/Units 02:39 02:20 01:25 WBC (4.4-10.8) 10^3/uL RBC (4.36-5.78) 10^6/uL Hgb (13.5-17.5) g/dL Hct (40.0-50.0) % MCV (80-95) fL MCH (27.0-33.0) pg MCHC (32.0-36.0) % RDW (11.8-14.1) % Plt Count (130-400) 10^3/uL MPV (8.0-11.0) fL Immature Gran % % Neutrophils % % Lymphocytes % % Monocytes % % Eosinophils % % Basophils % % Nucleated RBC % (0.0-0.3) % Absolute Neutrophils (1.2-6.7) 10^3/uL Absolute Lymphocytes (1.2-3.4) 10^3/uL Absolute Monocytes (0.1-0.8) 10^3/uL Absolute Eosinophils (0.0-0.7) 10^3/uL Absolute Basophils (0.0-0.2) 10^3/uL D-Dimer 413 (<500) ng/mlFEU VBG pH 7.25 L (7.31-7.41) VBG pCO2 78 H* (41-51) mmHg VBG pO2 58 mmHg VBG HCO3 34 H (23-28) mmol/L VBG Total CO2 31 H (24-29) mmol/L VBG O2 Saturation 86 % VBG Base Excess 7 H (-2-3) mmol/L VBG Lactate (<or=2.0) mmol/L Sodium 143 (136-145) mmol/L Potassium 5.2 H (3.5-5.1) mmol/L Chloride 104 (98-107) mmol/L Carbon Dioxide 35.9 H (20.0-31.0) mmol/L Anion Gap 3.1 (3-11) mmol/L BUN 37 H (9-23) mg/dL Creatinine 1.64 H (0.73-1.18) mg/dL Est GFR (CKD-EPI 2020) 40.99 (mL/min/1.73m2) Glucose 183 H (74-106) mg/dL Calcium 8.5 (8.3-10.6) mg/dL Magnesium 2.2 (1.6-2.6) mg/dL Total Bilirubin 0.5 (0.2-1.2) mg/dL AST 13 (<34) U/L ALT 7 L (10-49) U/L Alkaline Phosphatase 101 (46-116) U/L Troponin I 15 17 (<54) ng/L NT-Pro-B Natriuret Pep 1442 H (<300) pg/mL Total Protein 7.7 (5.7-8.2) g/dL Albumin 4.5 (3.2-5.0) g/dL TSH 2.81 (0.55-4.78) uIU/mL Urine Color Yellow (Yellow) Urine Clarity Clear (Clear) Urine pH 5.5 (5-8) Ur Specific [place] 1.020 (1.005-1.025) Urine Protein 30 H (Neg-Trace) mg/dL Urine Ketones Negative (Negative) mg/dL Urine Blood Trace-intact H (Negative) Urine Nitrite Negative (Negative) Urine Bilirubin Negative (Negative) Urine Urobilinogen 0.2 (Up to 0.2) mg/dL Ur Leukocyte Esterase Negative (Negative) Urine RBC 3-5 H (0-2) HPF Urine WBC Negative (0-5) HPF Ur Epithelial Cells Negative (Negative) HPF Urine Crystals Negative (Negative) HPF Urine Bacteria Rare (Negative) HPF Urine Casts Negative (Negative) LPF Urine Mucus Negative (Negative) Ur Culture Indicated? No Urine Glucose Negative (Negative) mg/dL COVID-19 Source SARS-CoV-2 (PCR) (Negative) Influenza Type A (PCR) (Negative) Influenza Type B (PCR) (Negative) RSV (PCR) (Negative) Add-On Test Request 05/08/25 05/08/25 05/08/25 Range/Units 01:23 00:55 00:45 WBC (4.4-10.8) 10^3/uL RBC (4.36-5.78) 10^6/uL Hgb (13.5-17.5) g/dL Hct (40.0-50.0) % MCV (80-95) fL MCH (27.0-33.0) pg MCHC (32.0-36.0) % RDW (11.8-14.1) % Plt Count (130-400) 10^3/uL MPV (8.0-11.0) fL Immature Gran % % Neutrophils % % Lymphocytes % % Monocytes % % Eosinophils % % Basophils % % Nucleated RBC % (0.0-0.3) % Absolute Neutrophils (1.2-6.7) 10^3/uL Absolute Lymphocytes (1.2-3.4) 10^3/uL Absolute Monocytes (0.1-0.8) 10^3/uL Absolute Eosinophils (0.0-0.7) 10^3/uL Absolute Basophils (0.0-0.2) 10^3/uL D-Dimer (<500) ng/mlFEU VBG pH Cancelled 7.22 L (7.31-7.41) VBG pCO2 Cancelled 88 H* (41-51) mmHg VBG pO2 Cancelled 83 mmHg VBG HCO3 Cancelled 37 H (23-28) mmol/L VBG Total CO2 Cancelled 39 H (24-29) mmol/L VBG O2 Saturation Cancelled 93 % VBG Base Excess Cancelled 9 H (-2-3) mmol/L VBG Lactate Cancelled 1.1 (<or=2.0) mmol/L Sodium (136-145) mmol/L Potassium (3.5-5.1) mmol/L Chloride (98-107) mmol/L Carbon Dioxide (20.0-31.0) mmol/L Anion Gap (3-11) mmol/L BUN (9-23) mg/dL Creatinine (0.73-1.18) mg/dL Est GFR (CKD-EPI 2020) (mL/min/1.73m2) Glucose (74-106) mg/dL Calcium (8.3-10.6) mg/dL Magnesium (1.6-2.6) mg/dL Total Bilirubin (0.2-1.2) mg/dL AST (<34) U/L ALT (10-49) U/L Alkaline Phosphatase (46-116) U/L Troponin I (<54) ng/L NT-Pro-B Natriuret Pep (<300) pg/mL Total Protein (5.7-8.2) g/dL Albumin (3.2-5.0) g/dL TSH (0.55-4.78) uIU/mL Urine Color (Yellow) Urine Clarity (Clear) Urine pH (5-8) Ur Specific [place] (1.005-1.025) Urine Protein (Neg-Trace) mg/dL Urine Ketones (Negative) mg/dL Urine Blood (Negative) Urine Nitrite (Negative) Urine Bilirubin (Negative) Urine Urobilinogen (Up to 0.2) mg/dL Ur Leukocyte Esterase (Negative) Urine RBC (0-2) HPF Urine WBC (0-5) HPF Ur Epithelial Cells (Negative) HPF Urine Crystals (Negative) HPF Urine Bacteria (Negative) HPF Urine Casts (Negative) LPF Urine Mucus (Negative) Ur Culture Indicated? Urine Glucose (Negative) mg/dL COVID-19 Source Nasopharynx SARS-CoV-2 (PCR) Negative (Negative) Influenza Type A (PCR) Negative (Negative) Influenza Type B (PCR) Negative (Negative) RSV (PCR) Negative (Negative) Add-On Test Request 12/14/25 Range/Units 00:30 WBC 7.91 (4.4-10.8) 10^3/uL RBC 4.91 (4.36-5.78) 10^6/uL Hgb 14.7 (13.5-17.5) g/dL Hct 50.1 H (40.0-50.0) % MCV 102 H (80-95) fL MCH 29.9 (27.0-33.0) pg MCHC 29.3 L (32.0-36.0) % RDW 14.2 H (11.8-14.1) % Plt Count 122 L (130-400) 10^3/uL MPV 12.1 H (8.0-11.0) fL Immature Gran % 0.5 % Neutrophils % 76.2 % Lymphocytes % 13.0 % Monocytes % 7.3 % Eosinophils % 2.7 % Basophils % 0.3 % Nucleated RBC % 0.0 (0.0-0.3) % Absolute Neutrophils 6.03 (1.2-6.7) 10^3/uL Absolute Lymphocytes 1.03 L (1.2-3.4) 10^3/uL Absolute Monocytes 0.58 (0.1-0.8) 10^3/uL Absolute Eosinophils 0.21 (0.0-0.7) 10^3/uL Absolute Basophils 0.02 (0.0-0.2) 10^3/uL D-Dimer (<500) ng/mlFEU VBG pH (7.31-7.41) VBG pCO2 (41-51) mmHg VBG pO2 mmHg VBG HCO3 (23-28) mmol/L VBG Total CO2 (24-29) mmol/L VBG O2 Saturation % VBG Base Excess (-2-3) mmol/L VBG Lactate (<or=2.0) mmol/L Sodium (136-145) mmol/L Potassium (3.5-5.1) mmol/L Chloride (98-107) mmol/L Carbon Dioxide (20.0-31.0) mmol/L Anion Gap (3-11) mmol/L BUN (9-23) mg/dL Creatinine (0.73-1.18) mg/dL Est GFR (CKD-EPI 2020) (mL/min/1.73m2) Glucose (74-106) mg/dL Calcium (8.3-10.6) mg/dL Magnesium (1.6-2.6) mg/dL Total Bilirubin (0.2-1.2) mg/dL AST (<34) U/L ALT (10-49) U/L Alkaline Phosphatase (46-116) U/L Troponin I (<54) ng/L NT-Pro-B Natriuret Pep (<300) pg/mL Total Protein (5.7-8.2) g/dL Albumin (3.2-5.0) g/dL TSH (0.55-4.78) uIU/mL Urine Color (Yellow) Urine Clarity (Clear) Urine pH (5-8) Ur Specific [place] (1.005-1.025) Urine Protein (Neg-Trace) mg/dL Urine Ketones (Negative) mg/dL Urine Blood (Negative) Urine Nitrite (Negative) Urine Bilirubin (Negative) Urine Urobilinogen (Up to 0.2) mg/dL Ur Leukocyte Esterase (Negative) Urine RBC (0-2) HPF Urine WBC (0-5) HPF Ur Epithelial Cells (Negative) HPF Urine Crystals (Negative) HPF Urine Bacteria (Negative) HPF Urine Casts (Negative) LPF Urine Mucus (Negative) Ur Culture Indicated? Urine Glucose (Negative) mg/dL COVID-19 Source SARS-CoV-2 (PCR) (Negative) Influenza Type A (PCR) (Negative) Influenza Type B (PCR) (Negative) RSV (PCR) (Negative) Add-On Test Request 05/08/25 01:25 Blood Culture - Pending Blood 05/08/25 01:12 Blood Culture - Pending Blood [id number] Documentation Fingerstick Glucose Start: 05/08/25 00:45 Freq: .Stat Status: Active Protocol: Activity Type Activity Date Activity User E-sign Co-sign Detail Recorded Client Recorded Date Recorded By Document 05/08/25 00:47 BKG DAEMON(3) [id number] 05/08/25 00:48 BKG DAEMON(4) Intake and Output - 24 Hour Total 05/08/25 00:31 thru 05/08/25 02:47 Intake Total 400 Balance 400 Weight 139.525 kg Intake: IV 400 Other: Urine Color Pale Yellow Urine Appearance Clear Urinary Catheter Urinary Catheter Date of 05/08/25 Insertion [Urethral (Roblero)] Time of insertion [Urethral ( 02:40 Roblero)] Falls Risk Assessment History of Falls No History 05/08/25 00:50 Contributing Factors No Factors 05/08/25 00:50 Ambulatory Aids Independent 05/08/25 00:50 Tubes/Lines None 05/08/25 00:50 Gait Evaluation No gait disturbance 05/08/25 00:50 Cognition No cognitive impairment 05/08/25 00:50 Fall Total Score 0 05/08/25 00:50 Level of Risk Standard/Low Risk 05/08/25 00:50 Problems (Last Reviewed 05/08/25 @ 04:27 by Terrence Summers) CONCHITA (acute kidney injury) (Acute) Depression (Chronic) Acute respiratory failure with hypoxia and hypercarbia (Acute) Hyperkalemia (Acute) Congestive heart failure (Acute) Alzheimer dementia (Chronic) PLMD (periodic limb movement disorder) (Chronic) Pneumonia (Acute) Hypothyroidism (Chronic) Neuropathy (Chronic) Notes 05/08/25 04:30 Nursing Notes by Sid Hardy Nursing Note: Called [facility] for med rec information as patient was sent without paperwork. Unable to reach anyone, left voicemail on confidential nurses station line with call back number. Order placed for [facility] tele[facility]. Initialized on 05/08/25 04:30 - END OF NOTE Attestation Statement: By documenting the first initial, last name, and credentials of the reporting nurse below, both parties acknowledge that all relevant information regarding the patient handoff has been communicated, and that all questions have been addressed to ensure continuity and safety of care. Additional Patient Information/Comments: Report Received From: Sid LAWRENCE
[2025-05-08 05:51] LABS: BE (Venous) 11 mmol/L (-2-3); HCO3 (Venous) 38 mmol/L (23-28); O2 Sat (Venous) 44 %; TCO2 (Venous) 35 mmol/L (24-29); pO2 (Venous) 27 mmHg
[2025-05-08 05:52] LABS: pCO2 (Venous) 80 mmHg (41-51)
[2025-05-08 07:07] LABS: BE (Venous) 11 mmol/L (-2-3); HCO3 (Venous) 36 mmol/L (23-28); O2 Sat (Venous) 78 %; TCO2 (Venous) 32 mmol/L (24-29); pO2 (Venous) 43 mmHg
[2025-05-08 07:12] LABS: pCO2 (Venous) 66 mmHg (41-51)
[2025-05-08] MEDS: CEFEPIME 1 GM in Normal Saline 50 ML IVPB (07:35)
[2025-05-08] MEDS: Levothyroxine 25 MCG TAB PO (07:35)
--- NOTE | 2025-05-08 08:32 | PDOC.CMIN ---
Date of service: 05/08/25 Time of Service: 08:32 Care Management Initial Assmt Initial Assessment Reason for Hospitalization: CHF and pneumonia Functional Status/Living Situation Patient Presentation: Venkata was dozing in his chair when CM met with him. He woke up to light touch and easily engaged with CM. Venkata was pleasant in interaction and agreeable to answering questions. Venkata was admitted on 05/08/25 with respiratory failure. He has COPD, CHF and possibly pneumonia. He required Bipap overnight to maintain his oxygen saturation in the 90s, but by this morning he was able to switch to nasal cannula at 2L/min. He does not use home oxygen at baseline. Venkata lives at the [facility]. He reported that he has been there for a few months and really likes it there. He has a son and a daughter; one lives in [place] and the other is in [place]. 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 He is fairly independent with ADLs and only requires a little assistance with showering. He reported that he can feed and dress himself and uses a walker for ambulation. Town of Residence: [facility] Resides with: Other (assisted living) Significant Other/Family: Local Natural Supports: son Juni daughter Antonia Employment Status: Retired (auto body service mechanic) Instrumental Activities of Daily Living (ADLs): Independent Medications Medication Management: No Issues/Barriers identified Physical Functioning/Mobility Assistive Device: FWW Advance Directives Advance Directives: Do you have an Advance Directive: Y 09/30/24, 13:07 AD On File at [facility]: Y 09/30/24, 13:07 Date Asked 03/23/25 03/23/25, 14:54 AD Date Reviewed COLST On File at [facility] Yes 09/30/24, 13:07 COLST Date Scanned Code Status Resuscitation Status DNR/DNI Insurance Coverage/Financial Issues Insurance: Medicare Care Team Visit Care Team Role Provider Type Koby Quintero MD MD [facility] STAFF PHYSICIAN David Zuleta NP Primary Care Provider NURSE PRACTITIONER Kelly Hagan RDN, [facility] Other Providers NURSE DISCHARGE PLANNER Kyaw Dinh RDN Other Providers NURSE DISCHARGE PLANNER Manuela Mancia MD Emergency Provider [facility] STAFF PHYSICIAN Terrence Summers Admit Provider NON-[facility] STAFF PHYSICIAN Attending Provider Discharge Potential Discharge Needs: PCP F/U Appt Anticipated Barriers to Discharge: None Identified Patient/Family Education Needs: Review discharge instructions, discuss Ask Me Three Transportation: Private vehicle Plan: Anticipate Venkata will be discharged back to [facility] when medically stable. He will follow up with his community providers and plan of care and transport with family or staff. CM will follow and continue to assess for discharge needs. Social Determinants of Health Screening Will the Patient Participate in the Screening?: Declined to provide PFSH All Active Problems CONCHITA (acute kidney injury) (Acute) Depression (Chronic) Acute respiratory failure with hypoxia and hypercarbia (Acute) Altered mental status (Acute) Hyperkalemia (Acute) Congestive heart failure (Acute) Acute hypoxic respiratory failure (Acute) Acute hypercapnic respiratory failure (Acute) Urinary incontinence (Acute) Alzheimer dementia (Chronic) Urinary incontinence, urge (Acute) Gait instability (Acute) PLMD (periodic limb movement disorder) (Chronic) Advanced care planning/counseling discussion (Acute) Goals of care, counseling/discussion (Acute) Gait abnormality (Acute) Pneumonia (Acute) Hypothyroidism (Chronic) Pain in soft tissues of limb (Acute) Other hammer toe (acquired) (Acute) Corns and callosities (Acute) Acute cognitive decline (Acute) Cold sensation of skin (Acute) Neuropathy (Chronic) Chronic pain syndrome (Chronic) No longer taking MS and no longer on contract. 12/10/16 RENEWAL OF CONTROLLED SUBSTANCE AGREEMENT 04/2021-updated agreement/VPMS query and drug screen Sexual function problem (Acute) Polyp of colon (Acute 06/25/08) Peripheral neuralgia (Acute) of feet; idiopathic; multiple neuro w/u's; 2 brothers and mother with similar issue...likely genetic origin multiple neuro consults. See 2013 Dr Garcia. Obesity (Acute) Complete edentulism, unspecified (Acute) Anticoagulated on warfarin (Acute) A-fib; goal 2-3 Hemorrhoids (Acute) Open wound of right heel (Acute) Followed by [facility] Medical History Palliative care encounter Cognitive decline Supratherapeutic INR Anxiety Atrial fibrillation beginning in 2002, it was initially paroxysmal and cardioverted. It is now chronic. On warfarin Chronic obstructive lung disease Hyperlipidemia Essential hypertension (03/16/13) Diabetes mellitus Surgical History Hx of cataract surgery Hx of colonoscopy Repair of inguinal hernia (~1975) right CARDIOVERSION (~2002) Family History Mother Stroke Father Heart disease Brother Diabetes Brother No problems noted. Maternal Grandfather No problems noted. Paternal Grandfather No problems noted. Maternal Grandmother No problems noted. Son Hypertension Daughter Depression Social History Smoking/Tobacco Use Status: Former Tobacco Use tobacco type: cigarettes Quit Date: 05/26/08 Second Hand Exposure: Yes Smoking risk assessment performed?: Yes Alcohol Intake: current Alcohol Intake frequency: a few times a week Alcohol type: beer Drug use: Occasionally Substance use type: marijuana Details: pt stated to MD no use of tobacco, alcohol, or substance use Caregiver/Support person: No Household members: children Housing: assisted living facility Communication Needs: None Do you need help understanding health information?: Always Pets and animals: No Sexually active: No Do you think of yourself as: straight/heterosexual Current gender identity: male What is your relationship status?: How often do you talk on the phone with friends or family?: twice per week How often do you get together with friends or relatives?: three or more times per week How often do you attend anabaptism or anabaptism services?: decline to answer Do you belong to any clubs or organized social groups?: yes Panel score (0-1 are the most socially isolated patients): 2 What type of physical activity do you participate in: none Duration: 15-30 minutes/day Frequency: daily Khalida/Mormonism: No preference Special khalida needs: No Seatbelt use: always Helmet use: Yes Helmet use: always Drive intox or ride w/intox 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
[2025-05-08] MEDS: Vitamin E 400 UNITS CAP PO ×2 (09:04→19:51)
[2025-05-08] MEDS: Metoprolol 25 MG TAB PO (09:04)
[2025-05-08] MEDS: VANCOMYCIN/WATER (PEG) 750 MG/150 ML BAG 150 MG IVPB (09:04)
[2025-05-08] MEDS: Rivaroxaban 10 MG TABLET 20 MG PO (09:04)
[2025-05-08] MEDS: Mirabegron 25 MG TABCR PO (09:05)
[2025-05-08] MEDS: Losartan 50 MG TAB PO (09:05)
[2025-05-08] MEDS: Pregabalin 100 MG CAP PO ×3 (09:05→19:48)
[2025-05-08] MEDS: Normal Saline Flush 10 ML SYR IVP ×2 (09:05→19:48)
[2025-05-08] MEDS: DULoxetine 30 MG CAP 60 MG PO ×2 (09:05→19:48)
[2025-05-08] MEDS: rOPINIRole 0.25 MG TAB PO ×3 (09:05→19:49)
[2025-05-08] MEDS: Memantine 5 MG TAB 10 MG PO ×2 (09:05→19:49)
[2025-05-08] MEDS: Cyanocobalamin 500 MCG TAB 1000 MCG PO (09:05)
[2025-05-08] MEDS: Refresh PLUS Eye Drops 0.4ml 1 EACH OP ×3 (09:07→19:49)
[2025-05-08 10:55] LABS: BE (Venous) 10 mmol/L (-2-3); HCO3 (Venous) 36 mmol/L (23-28); O2 Sat (Venous) 66 %; TCO2 (Venous) 32 mmol/L (24-29); pO2 (Venous) 36 mmHg
[2025-05-08 10:59] LABS: pCO2 (Venous) 68 mmHg (41-51)
[2025-05-08 11:09] LABS: INR 1.8 (0.9-1.1); Prothrombin Time 17.1 sec (9.1-11.1)
--- NOTE | 2025-05-08 11:30 | PHA.REVIEW2 ---
Pharmacy Admission Review Admission Clinical Review Admission Pharmacy Review: CONCHITA (acute kidney injury) (Acute) Acute respiratory failure with hypoxia and hypercarbia (Acute) Hyperkalemia (Acute) Congestive heart failure (Acute) Pneumonia (Acute) ibuprofen Allergy (Unknown, Verified 05/08/25 04:35) ITCHING simvastatin Adverse Reaction (Intermediate, Verified 05/08/25 04:35) ? OF NEUROPATHY OF FEET ILENE Inhibitors Adverse Reaction (Unknown, Verified 05/08/25 04:35) COUGH Resuscitation Status DNR/DNI Height 6 ft Weight 132.1 kg Pharmacy Admission Review Renal Dosing Renal Dosing: BUN 37 mg/dL (9-23) H 05/08/25 01:25 Creatinine 1.64 mg/dL (0.73-1.18) H 05/08/25 01:25 Medications needing adjustments: Reviewed (CRCL=53; REVIEWED MEDS; WILL RECOMMEND TO ADJUST CEFEPIME TO 2GM Q12H; RIVAROXABAN DOSE IS OK) Anticoagulation Anticoagulation: Hgb 14.7 g/dL (13.5-17.5) 05/08/25 00:30 Hct 50.1 % (40.0-50.0) H 05/08/25 00:30 Plt Count 122 10^3/uL (130-400) L 05/08/25 00:30 INR 1.8 (0.9-1.1) H 05/08/25 10:47 Creatinine 1.64 mg/dL (0.73-1.18) H 05/08/25 01:25 DVT Prophylaxis: Reviewed Medications: Rivaroxaban Opiate Usage Evaluate Pain Scale/Pains Meds: N/A Relevant Labs Relevant Labs: Sodium 143 mmol/L (136-145) 05/08/25 01:25 Potassium 5.0 mmol/L (3.5-5.1) 05/08/25 03:35 Chloride 104 mmol/L (98-107) 05/08/25 01:25 Magnesium 2.2 mg/dL (1.6-2.6) 05/08/25 01:25 Electrolytes, C-Reactive P, ESR: Reviewed DM Control DM Control: Reviewed (am glucose 127; no history of dm or dm meds at home. ) Cardiac Review Cardiac Review: Troponin I 17 ng/L (<54) 05/08/25 04:38 NT-Pro-B Natriuret Pep 1442 pg/mL (<300) H 05/08/25 01:25 BP, HR, EF%: Reviewed (bp=87/67; hr=65; on home metoprolol for afib) QTc Review QTc: Reviewed (pdd=454) IV to PO Switch IV Medications: Reviewed (antiobiotics iv for now; and furosemide iv for now while diuresing ) Home Meds Home Med List reviewed: Reviewed Relevent Home Meds Not ordered & why?: confirming which day of week pt takes vitamin d Current Meds Current Medication Order Review: Reviewed Pharmacy Antibiotic Review Pharmacy Antibiotic Activity: Reviewed, no change (on day 1 vancomycin and cefepime; check vanco trough on 05/09 at 1900 if still on it)
[2025-05-08] MEDS: Insulin Aspart 300 UNITS/3 ML PEN SC (12:01)
[2025-05-08] MEDS: Azithromycin 250 MG TAB 500 MG PO (12:14)
[2025-05-08] MEDS: Olopatadine 0.1% OPHTH SOL 5 ML BTL 1 ML OP (12:15)
[2025-05-08] MEDS: cefTRIAXone 2 GM/50 ML BAG IVPB (13:42)
[2025-05-08 15:06] LABS: BE (Venous) 10 mmol/L (-2-3); HCO3 (Venous) 36 mmol/L (23-28); O2 Sat (Venous) 66 %; TCO2 (Venous) 33 mmol/L (24-29); pO2 (Venous) 38 mmHg
[2025-05-08 15:18] LABS: pCO2 (Venous) 79 mmHg (41-51)
[2025-05-08] MEDS: Donepezil 5 MG TAB 10 MG PO (19:48)
[2025-05-08] MEDS: Pravastatin 40 MG TAB PO (19:48)
[2025-05-08] MEDS: traZODone 100 MG TAB PO (19:49)
[2025-05-08 22:45] LABS: BE (Venous) 8 mmol/L (-2-3); HCO3 (Venous) 33 mmol/L (23-28); O2 Sat (Venous) 79 %; TCO2 (Venous) 30 mmol/L (24-29); pCO2 (Venous) 55 mmHg (41-51); pO2 (Venous) 40 mmHg
[2025-05-09] VITALS (43 sets, daily range): BP systolic 80–141; BP diastolic 47–119; PULSE 84–197; RESP 13–36; TEMP 36.1–36.6; O2SAT 80–97
[2025-05-09] MEDS: Albuterol/Ipratropium 3 ML UPD VIAL UPD ×4 (05:21→18:38)
[2025-05-09] MEDS: Levothyroxine 25 MCG TAB PO (05:30)
[2025-05-09] MEDS: Normal Saline Flush 10 ML SYR IVP ×5 (05:35→20:57)
[2025-05-09 05:57] LABS: HCT 47.6 % (40.0-50.0); HGB 14.3 g/dL (13.5-17.5); MCH 30.6 pg (27.0-33.0); MCHC 30.0 % (32.0-36.0); MCV 102 fL (80-95); MPV 11.5 fL (8.0-11.0); Platelet Count 106 10^3/uL (130-400); RBC 4.67 10^6/uL (4.36-5.78); RDW 14.1 % (11.8-14.1); RDW-SD 53.0 fL; WBC 8.17 10^3/uL (4.4-10.8)
[2025-05-09 06:19] LABS: Magnesium 1.9 mg/dL (1.6-2.6)
[2025-05-09 06:28] LABS: ALT < 7 U/L (10-49); AST 18 U/L (<34); Albumin 3.8 g/dL (3.2-5.0); Alkaline Phosphatase 82 U/L (46-116); Anion Gap 4.7 mmol/L (3-11); BUN 37 mg/dL (9-23); Bilirubin, Total 0.6 mg/dL (0.2-1.2); CO2 38.0 mmol/L (20.0-31.0); Calcium 8.0 mg/dL (8.3-10.6); Chloride 97 mmol/L (98-107); Glucose 117 mg/dL (74-106); Potassium 4.5 mmol/L (3.5-5.1); Sodium 140 mmol/L (136-145); Total Protein 6.5 g/dL (5.7-8.2)
[2025-05-09] MEDS: Olopatadine 0.1% OPHTH SOL 5 ML BTL 1 ML OP (07:53)
[2025-05-09] MEDS: Refresh PLUS Eye Drops 0.4ml 1 EACH OP ×3 (08:00→20:55)
[2025-05-09] MEDS: Rivaroxaban 10 MG TABLET 20 MG PO (08:00)
[2025-05-09 08:01] LABS: BE (Venous) 12 mmol/L (-2-3); HCO3 (Venous) 39 mmol/L (23-28); O2 Sat (Venous) 35 %; TCO2 (Venous) 36 mmol/L (24-29); pO2 (Venous) 24 mmHg
[2025-05-09] MEDS: Cyanocobalamin 500 MCG TAB 1000 MCG PO (08:01)
[2025-05-09] MEDS: rOPINIRole 0.25 MG TAB PO ×3 (08:01→20:55)
[2025-05-09] MEDS: Vitamin E 400 UNITS CAP PO ×2 (08:01→20:56)
[2025-05-09] MEDS: DULoxetine 30 MG CAP 60 MG PO ×2 (08:01→20:56)
[2025-05-09] MEDS: Memantine 5 MG TAB 10 MG PO ×2 (08:01→20:56)
[2025-05-09] MEDS: Losartan 50 MG TAB PO (08:02)
[2025-05-09] MEDS: Pregabalin 100 MG CAP PO ×3 (08:02→20:56)
[2025-05-09] MEDS: Mirabegron 25 MG TABCR PO (08:02)
[2025-05-09 08:09] LABS: pCO2 (Venous) 92 mmHg (41-51)
--- NOTE | 2025-05-09 08:31 | W.PULMCC ---
General Date of Service Date of service: 05/09/25 Time of Service: 08:15 Reason for Admission to ICU: Respiratory failure Assessment and Plan Assessment and plan (1) Obesity hypoventilation syndrome: Status: Acute (2) Acute hypoxic respiratory failure: Status: Acute (3) Acute hypercapnic respiratory failure: Status: Acute (4) Pulmonary edema: Status: Acute Recommendations Pulmonary: Assessment: 1. Acute hypoxemic respiratory failure - suspect due to pulmonary edema. Clinical picture less consistent with acute infectious pneumonia. WBC normal, afebrile, rapid improvement with diuresis / BiPAP, suggestive of CHF exacerbation/pulmonary edema 2. Acute on chronic hypercapnic respiratory failure - ddx: OHS vs COPD vs respiratory muscle fatigue/pulmonary edema. Baseline CO2 ~60-70. No prior PFT's available 3. Pulmonary edema - clinically improved with diuresis. Echo pending 4. Hx tobacco abuse 5. Afib - on xarelto Recommendations: - will obtain ABG. He will likely qualify for home NIV given his chronic hypercapnic respiratory failure. This would help reduced re-admission rates and improve his quality of life - use BiPAP Q2H today and continuously when sleeping - I do not see clear evidence of infectious pneumonia or COPD exacerbation at this time, so OK to d/c antibiotics from my standpoint. Do not see a need for systemic steroids at this point, given rapid improvement with BiPAP and diuresis - will need outpatient PFT's - Cr improved from 1.6 to 1.4, so in favor of continued diuresis - follow up on echo results Discussed with Dr. Quintero I&O: Intake & Output 05/06/25 05/07/25 05/08/25 05/09/25 23:59 23:59 23:59 23:59 Intake Total 2720 / 2720 920 / 920 Output Total 4050 / 4050 500 / 500 Balance -1330 / -1330 420 / 420 Weight 132.1 kg 132.9 kg Code Status: Resuscitation Status DNR/DNI Subjective Critical and life-threatening events over the past 24 hours: Patient is a 74 yo with a history of tobacco abuse, morbid obesity, Alzheimer's disease, afib, who was admitted for acute hypoxemic / hypercapnic respiratory failure. He was found down at his assisted living facility. SpO2 was in 70's. Was brought to the ED via EMS. VBG showed PCO2 88, pH 7.22. He was placed on BiPAP and given diuresis with improvement. He denied any recent illness, fevers, chills/night sweats. Denied significant LE swelling. No purulent sputum production. No known history of lung disease/COPD. Does not use any inhalers at home. He tolerated BiPAP well overnight. Dyspnea has significantly improved this AM. ROS: 10 pt ROS negative except as in HPI Family history: Denied family history of lung diseae Smoking history: smoked 1 ppd x 20 years. Quit 2009 Exam Narrative Exam Narrative: General: alert, no acute distress Head: normocephalic ENT: no stridor, trachea midline CV: normal rate, irregular rhythm Respiratory: no wheezing, no crackles, no rhonchi, no prolonged expiration GI: abd soft, non-tender, non-distended Skin: no rashes Extremities: trace edema, no digital clubbing Psych: normal affect Most Recent VS/Results Last Vital Signs Temp 36.3 C L 05/09/25 07:27 Pulse 98 H 05/09/25 08:00 Resp 21 05/09/25 08:00 BP 100/78 05/09/25 06:01 Pulse Ox 84 L 05/09/25 08:00 Laboratory Results - last 24 hr 05/08/25 05/08/25 05/08/25 10:47 14:59 22:40 WBC RBC Hgb Hct MCV MCH MCHC RDW Plt Count MPV PT 17.1 H INR 1.8 H VBG pH 7.33 7.27 L 7.39 VBG pCO2 68 H* 79 H* 55 H VBG pO2 36 38 40 VBG HCO3 36 H 36 H 33 H VBG Total CO2 32 H 33 H 30 H VBG O2 Saturation 66 66 79 VBG Base Excess 10 H 10 H 8 H Sodium Potassium Chloride Carbon Dioxide Anion Gap BUN Creatinine Est GFR (CKD-EPI 2020) Glucose Calcium Magnesium Total Bilirubin AST ALT Alkaline Phosphatase Total Protein Albumin 05/09/25 05/09/25 05:40 07:53 WBC 8.17 RBC 4.67 Hgb 14.3 Hct 47.6 MCV 102 H MCH 30.6 MCHC 30.0 L RDW 14.1 Plt Count 106 L MPV 11.5 H PT INR VBG pH 7.24 L VBG pCO2 92 H* VBG pO2 24 VBG HCO3 39 H VBG Total CO2 36 H VBG O2 Saturation 35 VBG Base Excess 12 H Sodium 140 Potassium 4.5 Chloride 97 L Carbon Dioxide 38.0 H Anion Gap 4.7 BUN 37 H Creatinine 1.37 H Est GFR (CKD-EPI 2020) 50.44 Glucose 117 H Calcium 8.0 L Magnesium 1.9 Total Bilirubin 0.6 AST 18 ALT < 7 L Alkaline Phosphatase 82 Total Protein 6.5 Albumin 3.8 Time spent with patient Time spent in Critical Care: 45 Time spent in Critical care included: Performing procedures not included in c.c time, Coordination of care, Chart review, Documenting critically ill care, Time at immediate bedside and Discussing critically ill care with other medical staff
--- NOTE | 2025-05-09 08:50 | CMPROGNOTE_ITS ---
Date of service: 05/09/25 Time of Service: 08:50 Care Management Progress Note Progress Note Text Progress Note Text: Venkata was sitting up in bed when CM met with him. He was pleasant in manner and engaged well with CM. Venkata continues to struggle with maintaining his oxygen saturation. He has been on Bipap, Oxymask at 4L/min and nasal cannula at 4L/min at different times and is still saturating in the low to mid eighties. He shared that he is feeling a little better and had hoped to be able to return to his home at the [facility]. Unfortunately, clinically he is still requiring ICU level of care. He denied having any issues other that his breathing. He stated he even slept well last nigfht which surprised him. Discharge Potential Discharge Needs: PCP F/U Appt Anticipated Barriers to Discharge: None Identified Patient/Family Education Needs: Review discharge instructions, discuss Ask Me Three Transportation: Private vehicle Plan: Anticipate Venkata will be discharged back to The [facility] when medically stable. He will follow up with his community providers and plan of care and transport with family or staff. CM will follow and continue to assess for discharge needs. Social Determinants of Health Screening Social Determinants of health last assessed in clinic: 05/09/25 Will the Patient Participate in the Screening?: Yes Do you worry about having a steady place to live?: no Problems where you live: no known problems In the past 12 months, have you had to go without electric, gas, oil or water in your home?: no 1. Within the past 12 months, we worried whether our food would run out before we got money to buy more.: Never true 2. Within the past 12 months, the food we bought just didn't last and we didn't have money to get more.: Never true Has lack of transportation kept you from medical appointments or from doing things needed for daily living?: no Has anyone in your life made you feel unsafe or unsupported?: no How hard is it for you to pay for the very basics like food, housing, medical care, and heating? Would you say it is:: Not hard at all Do you want help finding or keeping work or a job?: I do not need or want help If for any reason you need help with day-to-day activities such as bathing, preparing meals, shopping, managing finances, etc., do you get the help you need?: I don?t need any help How often do you feel lonely or isolated from those around you?: Rarely Do you speak a language other than [place] at home?: No Comments: Pt resides at the [facility] Health Related Social Needs Health related social needs: feeling lonely/isolated (Z60.8) Health related social needs details: n/a
[2025-05-09 08:59] LABS: BE 10 mmol/L (-2-3); HCO3 37 mmol/L (22-26)
[2025-05-09 09:02] LABS: FIO2L 4 L
[2025-05-09] MEDS: Furosemide 40 MG/4 ML VIAL IVP ×2 (09:27→17:47)
[2025-05-09] MEDS: Insulin Aspart 300 UNITS/3 ML PEN SC ×2 (13:27→17:39)
[2025-05-09] MEDS: cefTRIAXone 2 GM/50 ML BAG IVPB (13:33)
[2025-05-09] MEDS: Normal Saline 500 ML IV (13:38)
--- NOTE | 2025-05-09 17:33 | W.PM.HP.N ---
[facility] All Active Problems (Updated 05/09/25 @ 08:40 by Alli Mojica MD) Pulmonary edema (Acute) Obesity hypoventilation syndrome (Acute) CONCHITA (acute kidney injury) (Acute) Depression (Chronic) Acute respiratory failure with hypoxia and hypercarbia (Acute) Altered mental status (Acute) Hyperkalemia (Acute) Congestive heart failure (Acute) Acute hypoxic respiratory failure (Acute) Acute hypercapnic respiratory failure (Acute) Urinary incontinence (Acute) Alzheimer dementia (Chronic) Urinary incontinence, urge (Acute) Gait instability (Acute) PLMD (periodic limb movement disorder) (Chronic) Advanced care planning/counseling discussion (Acute) Goals of care, counseling/discussion (Acute) Gait abnormality (Acute) Hypothyroidism (Chronic) Pain in soft tissues of limb (Acute) Other hammer toe (acquired) (Acute) Corns and callosities (Acute) Acute cognitive decline (Acute) Cold sensation of skin (Acute) Neuropathy (Chronic) Chronic pain syndrome (Chronic) No longer taking MS and no longer on contract. 12/10/16 RENEWAL OF CONTROLLED SUBSTANCE AGREEMENT 04/2021-updated agreement/VPMS query and drug screen Sexual function problem (Acute) Polyp of colon (Acute 06/25/08) Peripheral neuralgia (Acute) of feet; idiopathic; multiple neuro w/u's; 2 brothers and mother with similar issue...likely genetic origin multiple neuro consults. See 2013 Dr Garcia. Obesity (Acute) Complete edentulism, unspecified (Acute) Anticoagulated on warfarin (Acute) A-fib; goal 2-3 Hemorrhoids (Acute) Open wound of right heel (Acute) [facility] Medical History (Updated 05/09/25 @ 08:40 by Alli Mojica MD) Pneumonia Palliative care encounter Cognitive decline Supratherapeutic INR Anxiety Atrial fibrillation beginning in 2002, it was initially paroxysmal and cardioverted. It is now chronic. On warfarin Chronic obstructive lung disease Hyperlipidemia Essential hypertension (03/16/13) Diabetes mellitus Surgical History Hx of cataract surgery Hx of colonoscopy Repair of inguinal hernia (~1975) right CARDIOVERSION (~2002) Family History Mother Stroke Father Heart disease Brother Diabetes Brother No problems noted. Maternal Grandfather No problems noted. Paternal Grandfather No problems noted. Maternal Grandmother No problems noted. Son Hypertension Daughter Depression Social History Smoking/Tobacco Use Status: Former Tobacco Use tobacco type: cigarettes Quit Date: 05/26/08 Second Hand Exposure: Yes Smoking risk assessment performed?: Yes Alcohol Intake: current Alcohol Intake frequency: a few times a week Alcohol type: beer Drug use: Occasionally Substance use type: marijuana Details: pt stated to MD no use of tobacco, alcohol, or substance use Caregiver/Support person: No Household members: children Housing: assisted living facility Communication Needs: None Do you need help understanding health information?: Always Pets and animals: No Sexually active: No Do you think of yourself as: straight/heterosexual Current gender identity: male What is your relationship status?: How often do you talk on the phone with friends or family?: twice per week How often do you get together with friends or relatives?: three or more times per week How often do you attend sikhism or sabianism services?: decline to answer Do you belong to any clubs or organized social groups?: yes Panel score (0-1 are the most socially isolated patients): 2 What type of physical activity do you participate in: none Duration: 15-30 minutes/day Frequency: daily Khalida/Quaker: No preference Special khalida needs: No Seatbelt use: always Helmet use: Yes Helmet use: always Drive intox or ride w/intox driver helper: No Do you feel safe at home: Yes Do you feel safe in your relationship?: Yes Victim of physical abuse: No Victim of emotional abuse: No Victim of sexual abuse: No Would you like helpful sources: No Meds Allergies and Home Medications Allergies Allergy/AdvReac Type Severity Reaction Status Date / Time ibuprofen Allergy Unknown ITCHING Verified 05/08/25 04:35 simvastatin AdvReac Intermediate ? OF Verified 05/08/25 04:35 NEUROPATHY OF FEET ILENE Inhibitors AdvReac Unknown COUGH Verified 05/08/25 04:35 Home Medications ?Medication ?Instructions ?Recorded ?Confirmed ?Type vitamin E mixed 400 unit capsule 400 unit PO BID 08/08/23 05/08/25 History pravastatin 40 mg tablet 40 mg PO DAILY #90 tab-caps 06/30/24 05/08/25 Rx ergocalciferol (vitamin D2) 1,250 1,250 mcg PO QWEEK #90 caps 09/22/24 05/08/25 Rx mcg (50,000 unit) capsule pregabalin 100 mg capsule (Lyrica) 100 mg PO TID #270 caps 09/23/24 05/08/25 Rx trazodone 100 mg tablet 100 mg PO QHS #90 tabs 10/05/24 05/08/25 Rx rivaroxaban 20 mg tablet (Xarelto) 20 mg PO DAILY #90 tabs 11/11/24 05/08/25 Rx cyanocobalamin (vitamin B-12) 1,000 mcg PO DAILY #90 caps 11/22/24 05/08/25 Rx 1,000 mcg capsule duloxetine 60 mg capsule,delayed 60 mg PO BID #180 caps 11/22/24 05/08/25 Rx release levothyroxine 25 mcg tablet 25 mcg PO DAILY #90 tab-caps 11/22/24 05/08/25 Rx (Synthroid) metoprolol succinate 100 mg 100 mg PO DAILY #90 tabs 11/22/24 05/08/25 Rx tablet,extended release 24 hr mirabegron 25 mg tablet,extended 25 mg PO DAILY #90 tabs 11/22/24 05/08/25 Rx release 24 hr (Myrbetriq) donepezil 10 mg tablet 10 mg PO QHS #90 tabs 12/07/24 05/08/25 Rx memantine 10 mg tablet 10 mg PO BID #180 tabs 12/07/24 05/08/25 Rx ropinirole 0.25 mg tablet 0.25 mg PO TID #270 tabs 12/07/24 05/08/25 Rx carboxymethylcellulose 0.5 1 drp ophthalmic (eye) TID 05/08/25 05/08/25 History %-glycerin 0.9 % eye drops (Refresh Relieva) dulaglutide 4.5 mg/0.5 mL 4.5 mg subcut .weekly 05/08/25 05/08/25 History subcutaneous pen injector (Trulicity) eyelid cleanser combination 3 1 pad topical DAILY AM 05/08/25 05/08/25 History (OcuSoft Lid Scrub Plus topical pads) losartan 100 mg tablet 100 mg PO DAILY 05/08/25 05/08/25 History olopatadine 0.2 % eye drops 1 drp ophthalmic (eye) DAILY 05/08/25 05/08/25 History Results Labs 05/09/25 05:40 05/09/25 05:40 Labs: Laboratory Results - last 24 hr 05/08/25 05/09/25 05/09/25 22:40 05:40 07:53 WBC 8.17 RBC 4.67 Hgb 14.3 Hct 47.6 MCV 102 H MCH 30.6 MCHC 30.0 L RDW 14.1 Plt Count 106 L MPV 11.5 H ABG Sample Site ABG pH ABG pCO2 ABG pO2 ABG HCO3 ABG Total CO2 ABG O2 Saturation ABG Base Excess VBG pH 7.39 7.24 L VBG pCO2 55 H 92 H* VBG pO2 40 24 VBG HCO3 33 H 39 H VBG Total CO2 30 H 36 H VBG O2 Saturation 79 35 VBG Base Excess 8 H 12 H Oxygen Liter Flow Sodium 140 Potassium 4.5 Chloride 97 L Carbon Dioxide 38.0 H Anion Gap 4.7 BUN 37 H Creatinine 1.37 H Est GFR (CKD-EPI 2020) 50.44 Glucose 117 H Calcium 8.0 L Magnesium 1.9 Total Bilirubin 0.6 AST 18 ALT < 7 L Alkaline Phosphatase 82 Total Protein 6.5 Albumin 3.8 05/09/25 08:52 WBC RBC Hgb Hct MCV MCH MCHC RDW Plt Count MPV ABG Sample Site Right Radial ABG pH 7.31 L ABG pCO2 72 H* ABG pO2 62 L ABG HCO3 37 H ABG Total CO2 33 H ABG O2 Saturation 92 L ABG Base Excess 10 H VBG pH VBG pCO2 VBG pO2 VBG HCO3 VBG Total CO2 VBG O2 Saturation VBG Base Excess Oxygen Liter Flow 4 Sodium Potassium Chloride Carbon Dioxide Anion Gap BUN Creatinine Est GFR (CKD-EPI 2020) Glucose Calcium Magnesium Total Bilirubin AST ALT Alkaline Phosphatase Total Protein Albumin Last Vital Signs Temp 36.3 C L 05/09/25 07:27 Pulse 96 H 05/09/25 16:00 Resp 21 05/09/25 16:00 BP 141/119 H 05/09/25 15:25 Pulse Ox 92 05/09/25 16:00 VTE Prohylaxis Risk Level: Moderate/High Risk Contraindications: Medical contrainidcation (Risk of falls with low platelet count,on Xarelto) Prophylaxis: Mechanical
--- NOTE | 2025-05-09 17:34 | PGE_ITS ---
Date of Service Date of service: 05/09/25 Time of Service: 08:00 Assessment and Plan Assessment and plan (1) Acute respiratory failure with hypoxia and hypercarbia: Start date: 05/08/25 Status: Acute Assessment and plan: Appreciate Dr Mojica (pulmonology) consult Volatile CO2 in ABG/VBG not apparently related to bipap use / nonuse COPD exacerbation less likely than pulmonary edema, consider new HF Echocardiogram completed, read not available Diuresis with IV furosemide (2) Congestive heart failure: Start date: 05/08/25 Status: Chronic Assessment and plan: Awaiting [facility] echo read (3) CONCHITA (acute kidney injury): Start date: 05/08/25 Status: Acute Assessment and plan: Elevated creatinine 1.64->1.37 against normal baseline, improving Continue diuresis, monitor UO (4) Hyperkalemia: Start date: 05/08/25 Status: Resolved Assessment and plan: Repleted, resolved. (5) Pneumonia: Start date: 05/08/25 Assessment and plan: Broad spectrum antibiotics discontinued Continue on CAP regimen, ceftriaxone and azithromycin (6) Essential hypertension: Assessment and plan: Continue outpatient medical therapy and adjust as needed. (7) Atrial fibrillation: Assessment and plan: Continue outpatient medical therapy along with oral anticoagulant with no evidence of acute hemorrhage. (8) Alzheimer dementia: Status: Chronic Assessment and plan: Continue outpatient treatment with Aricept and Namenda. He appears to be functioning fairly well with this problem. (9) Chronic obstructive lung disease: Assessment and plan: Patient is a remote smoker but not on inhalers recently. There is some evidence of chronic CO2 retention on his chemistries. Nebulizer treatments with DuoNeb while hospitalized though he does not have overt wheeze. (10) Diabetes mellitus: Assessment and plan: Hold outpatient medical therapy with glucometers before meals and at bedtime and moderate sliding scale coverage with his meals. (11) Neuropathy: Status: Chronic Assessment and plan: Continue outpatient medical therapy. (12) Hypothyroidism: Status: Chronic Assessment and plan: Continue outpatient supplement therapy. (13) PLMD (periodic limb movement disorder): Status: Chronic Assessment and plan: Continue outpatient medical therapy. (14) Depression: Status: Chronic Assessment and plan: This appears stable, continue outpatient medical therapy. Subjective Subjective Interval history since last seen: Mr. Kay is comfortable in bed on bipap. Worsened respiratory status overnight. Exam Narrative Exam Narrative: General: This is a pleasant man on bipap HEENT: Normocephalic, atraumatic CV: irregular rate and irregular rhythm, no murmur Resp: CTAB Abd: soft, NTND MSK: voluntary motion x4 Neuro: awake, alert, no focal deficits Objective Last Vital Signs Temp 36.3 C L 05/09/25 07:27 Pulse 96 H 05/09/25 16:00 Resp 21 05/09/25 16:00 BP 141/119 H 05/09/25 15:25 Pulse Ox 92 05/09/25 16:00 Laboratory Results - last 24 hr 05/08/25 05/09/25 05/09/25 22:40 05:40 07:53 WBC 8.17 RBC 4.67 Hgb 14.3 Hct 47.6 MCV 102 H MCH 30.6 MCHC 30.0 L RDW 14.1 Plt Count 106 L MPV 11.5 H ABG Sample Site ABG pH ABG pCO2 ABG pO2 ABG HCO3 ABG Total CO2 ABG O2 Saturation ABG Base Excess VBG pH 7.39 7.24 L VBG pCO2 55 H 92 H* VBG pO2 40 24 VBG HCO3 33 H 39 H VBG Total CO2 30 H 36 H VBG O2 Saturation 79 35 VBG Base Excess 8 H 12 H Oxygen Liter Flow Sodium 140 Potassium 4.5 Chloride 97 L Carbon Dioxide 38.0 H Anion Gap 4.7 BUN 37 H Creatinine 1.37 H Est GFR (CKD-EPI 2020) 50.44 Glucose 117 H Calcium 8.0 L Magnesium 1.9 Total Bilirubin 0.6 AST 18 ALT < 7 L Alkaline Phosphatase 82 Total Protein 6.5 Albumin 3.8 05/09/25 08:52 WBC RBC Hgb Hct MCV MCH MCHC RDW Plt Count MPV ABG Sample Site Right Radial ABG pH 7.31 L ABG pCO2 72 H* ABG pO2 62 L ABG HCO3 37 H ABG Total CO2 33 H ABG O2 Saturation 92 L ABG Base Excess 10 H VBG pH VBG pCO2 VBG pO2 VBG HCO3 VBG Total CO2 VBG O2 Saturation VBG Base Excess Oxygen Liter Flow 4 Sodium Potassium Chloride Carbon Dioxide Anion Gap BUN Creatinine Est GFR (CKD-EPI 2020) Glucose Calcium Magnesium Total Bilirubin AST ALT Alkaline Phosphatase Total Protein Albumin VTE Prohylaxis Risk Level: Moderate/High Risk Contraindications: Medical contrainidcation (Risk of falls with low platelet count,on Xarelto) Prophylaxis: Mechanical Time Spent with Patient Time Spent with Patient: 25-34 minutes Time was spent: preparing to see the patient(eg.review tests), obtaining and/or reviewing separately otained hiistory, ordering medications,tests, procedures, referring, communicating with other health director career services, indepentently interpreting results, counseling the patient and care coordination
[2025-05-09] MEDS: traZODone 100 MG TAB PO (20:56)
[2025-05-09] MEDS: Acetaminophen 325 MG TAB 650 MG PO (20:56)
[2025-05-09] MEDS: Pravastatin 40 MG TAB PO (20:56)
[2025-05-09] MEDS: Donepezil 5 MG TAB 10 MG PO (20:56)
[2025-05-09] MEDS: Miconazole 2% Topical Powder 85 GM BTL (21:38)
[2025-05-10] VITALS (35 sets, daily range): BP systolic 79–209; BP diastolic 45–145; PULSE 89–136; RESP 13–32; TEMP 36.5; O2SAT 76–97
[2025-05-10] MEDS: Albuterol 2.5 MG/3 ML INH SOLN VIAL UPD (04:12)
[2025-05-10] MEDS: Levothyroxine 25 MCG TAB PO (05:37)
[2025-05-10 06:15] LABS: HCT 44.6 % (40.0-50.0); HGB 13.6 g/dL (13.5-17.5); MCH 30.0 pg (27.0-33.0); MCHC 30.5 % (32.0-36.0); MPV 12.4 fL (8.0-11.0); Platelet Count 91 10^3/uL (130-400); RBC 4.54 10^6/uL (4.36-5.78); RDW 13.8 % (11.8-14.1); RDW-SD 50.1 fL; WBC 8.59 10^3/uL (4.4-10.8)
--- NOTE | 2025-05-10 06:15 | DI.RAD_ITS ---
Exam(s) XR PORTABLE CHEST AP EXAM: XR PORTABLE CHEST AP CLINICAL HISTORY: hypoxia TECHNIQUE: 2D digital imaging was performed of the chest. One image was obtained. An AP view was obtained. COMPARISON: CR XR PORTABLE CHEST AP from 02/05/2023 CR,XR XR PORTABLE CHEST AP from 05/08/2025 FINDINGS: MEDIASTINUM: Normal. HEART: Cardiomegaly. PULMONARY VASCULATURE: Normal. LUNGS: Clear. There are no focal consolidating infiltrates. PLEURAL SPACE: No pleural effusion or pneumothorax. BONE:Within normal limits for the patient's age. OTHER FINDINGS:Normal. IMPRESSION: 1. No acute pulmonary findings. 2. Cardiomegaly DATA REPOSITORY: RADIATION DOSE DELIVERED:
--- NOTE | 2025-05-10 06:25 | PGE_ITS ---
Assessment and Plan Assessment and plan (1) Acute hypercapnic respiratory failure: Status: Acute (2) Acute hypoxic respiratory failure: Status: Acute (3) Obesity hypoventilation syndrome: Status: Acute (4) Pulmonary edema: Status: Acute General Date Of Service Date of service: 05/10/25 Time of Service: 06:30 Requesting physician: Koby Quintero Reason for Consult: Respiratory failure Recommendations: Assessment: 1. Acute hypoxemic respiratory failure - suspect due to pulmonary edema. Clinical picture less consistent with acute infectious pneumonia. WBC normal, afebrile, rapid improvement with diuresis / BiPAP, suggestive of CHF exacerbation/pulmonary edema. Currently on 4 L O2. 2. Acute on chronic hypercapnic respiratory failure - ddx: OHS vs COPD vs respiratory muscle fatigue/pulmonary edema. Baseline CO2 ~60 based on ABG results. No prior PFT's available 3. Pulmonary edema - clinically improved with diuresis. Echo pending 4. Hx tobacco abuse 5. Afib - on xarelto Recommendations: - he would benefit and qualify for home NIV given his chronic hypercapnic respiratory failure. This would help reduced re-admission rates and improve his quality of life. Inquiring with his assisted living facility, what type of device they can accomodate - repeat CXR today - follow up on echo results - Cr continues to improve, so in favor of continued diuresis - follow up on echo results Discussed with Dr. Quintero Subjective Note Note: Patient is a 74 yo with a history of tobacco abuse, morbid obesity, Alzheimer's disease, afib, who was admitted for acute hypoxemic / hypercapnic respiratory failure. He was found down at his assisted living facility. SpO2 was in 70's. Was brought to the ED via EMS. VBG showed PCO2 88, pH 7.22. He was placed on BiPAP and given diuresis with improvement. Prior to hospialization, he denied any fevers, chills/night sweats, significant LE swelling or purulent sputum production. No known history of lung disease/COPD. Does not use any inhalers at home. He tolerated BiPAP well overnight. Doing well this AM. Denied cough. No chest pain. Has not yet ambulated yet. Off BiPAP has required 4 L O2. ROS: 6 pt ROS negative except as in HPI Family history: Denied family history of lung disease Smoking history: smoked 1 ppd x 20 years. Quit 2009 Exam Narrative Exam Narrative: General: alert, no acute distress Head: normocephalic ENT: no stridor, trachea midline CV: normal rate, irregular rhythm Respiratory: no wheezing, no crackles, no rhonchi, no prolonged expiration GI: abd soft, non-tender, non-distended Skin: no rashes Extremities: trace edema, no digital clubbing Psych: normal affect Objective Last Vital Signs Temp 36.6 C 05/09/25 18:12 Pulse 97 H 05/10/25 04:12 Resp 23 05/10/25 04:12 BP 79/68 L 05/10/25 00:41 Pulse Ox 90 L 05/10/25 04:12 Laboratory Results - last 24 hr 05/09/25 05/09/25 05/09/25 05:40 07:53 08:52 ABG Sample Site Right Radial ABG pH 7.31 L ABG pCO2 72 H* ABG pO2 62 L ABG HCO3 37 H ABG Total CO2 33 H ABG O2 Saturation 92 L ABG Base Excess 10 H VBG pH 7.24 L VBG pCO2 92 H* VBG pO2 24 VBG HCO3 39 H VBG Total CO2 36 H VBG O2 Saturation 35 VBG Base Excess 12 H Oxygen Liter Flow 4 Sodium 140 Potassium 4.5 Chloride 97 L Carbon Dioxide 38.0 H Anion Gap 4.7 BUN 37 H Creatinine 1.37 H Est GFR (CKD-EPI 2020) 50.44 Glucose 117 H Calcium 8.0 L Total Bilirubin 0.6 AST 18 ALT < 7 L Alkaline Phosphatase 82 Total Protein 6.5 Albumin 3.8 Results Medications Medications: Active Medications Generic Name Dose Route Start Last Admin Trade Name Freq PRN Reason Stop Dose Admin Acetaminophen 650 mg 05/08/25 06:18 05/09/25 20:56 Acetaminophen 325 Mg Tab PO 650 mg Q4H PRN PRN Administration Al Hydrox/Mg Hydrox/Simethicone 30 ml 05/08/25 06:18 Mylanta Suspension 30 Ml Cup PO Q2H PRN PRN Albuterol Sulfate 2.5 mg 05/08/25 06:18 05/10/25 04:12 Albuterol 2.5 Mg/3 Ml Inh Soln Vial UPD 2.5 mg Q2H PRN PRN Administration Albuterol/Ipratropium 3 ml 05/08/25 07:00 05/10/25 04:11 Albuterol/Ipratropium 3 Ml Upd Vial UPD Not Given Q6H WHILE AWAKE TEX Azithromycin 500 mg 05/08/25 12:00 05/08/25 12:14 Azithromycin 250 Mg Tab PO 05/11/25 08:31 500 mg DAILY TEX Administration Carboxymethylcellulose Sodium 1 each 05/08/25 08:30 05/09/25 20:55 Refresh Plus Eye Drops 0.4ml OP 1 drp TID TEX Administration Cyanocobalamin 1,000 mcg 05/08/25 08:30 05/09/25 08:01 Cyanocobalamin 500 Mcg Tab PO 1,000 mcg DAILY TEX Administration Dextrose 0 gm 05/08/25 06:18 Glucose Oral Gel 15 Gm/37.5 Gm Tube PO DIRECTED PRN Dextrose/Water 0 gm 05/08/25 06:18 Dextrose 50%-Water 25 Gm/50 Ml Syr IVP DIRECTED PRN Docusate Sodium 100 mg 05/08/25 06:18 Docusate Sodium 100 Mg Cap PO TID PRN PRN Donepezil HCl 10 mg 05/08/25 20:00 05/09/25 20:56 Donepezil 5 Mg Tab PO 10 mg HS TEX Administration Duloxetine HCl 60 mg 05/08/25 08:30 05/09/25 20:56 Duloxetine 30 Mg Cap PO 60 mg BID TEX Administration Ergocalciferol 50,000 units 05/13/25 08:30 Ergocalciferol 81024 Units Cap PO Fr TEX Furosemide 40 mg 05/09/25 09:10 05/09/25 17:47 Furosemide 40 Mg/4 Ml Vial IVP 40 mg BID@0800,1600 TEX Administration Ceftriaxone Sodium/Dextrose 2 gm in 50 mls @ 100 mls/hr 05/08/25 14:00 05/09/25 20:51 Rocephin IVPB 05/10/25 14:29 Infused Q24H TEX Infusion Sodium Chloride 500 mls @ 0 mls/hr 05/09/25 13:37 05/09/25 13:38 Saline 500ml Bag IV 1 mls/hr PRN PRN Administration As Directed Insulin Aspart 0 units 05/08/25 08:00 05/09/25 17:39 Insulin Aspart 300 Units/3 Ml Pen SC 2 units 0800,1200,1700 TEX Administration Protocol Levothyroxine Sodium 25 mcg 05/08/25 07:00 05/10/25 05:37 Levothyroxine 25 Mcg Tab PO 25 mcg 0600 TEX Administration Losartan Potassium 50 mg 05/08/25 08:30 05/09/25 08:02 Losartan 50 Mg Tab PO 50 mg DAILY TEX Administration Magnesium Hydroxide 30 ml 05/08/25 06:18 Milk Of Magnesia 30 Ml Cup PO DAILY PRN PRN Memantine 10 mg 05/08/25 08:30 05/09/25 20:56 Memantine 5 Mg Tab PO 10 mg BID TEX Administration Mirabegron 25 mg 05/08/25 08:30 05/09/25 08:02 Mirabegron 25 Mg Tabcr PO 25 mg DAILY TEX Administration Olopatadine HCl 1 ml 05/08/25 08:30 05/09/25 07:53 Olopatadine 0.1% Ophth [place] 5 Ml Btl OP 1 drp DAILY TEX Administration Polyethylene Glycol 17 gm 05/08/25 06:18 Polyethylene Glycol 3350 17 Gm Packet PO DAILY PRN PRN Constipation Pravastatin Sodium 40 mg 05/08/25 20:00 05/09/25 20:56 Pravastatin 40 Mg Tab PO 40 mg HS TEX Administration Pregabalin 100 mg 05/08/25 08:30 05/09/25 20:56 Pregabalin 100 Mg Cap PO 100 mg TID TEX Administration Rivaroxaban 20 mg 05/08/25 08:30 05/09/25 08:00 Rivaroxaban 10 Mg Tablet PO 20 mg DAILY TEX Administration Ropinirole HCl 0.25 mg 05/08/25 08:30 05/09/25 20:55 Ropinirole 0.25 Mg Tab PO 0.25 mg TID TEX Administration Sodium Chloride 0 ml 05/08/25 06:18 05/09/25 17:48 Normal Saline Flush 10 Ml Syr IVP 10 ml PRN PRN Administration Sodium Chloride 0 ml 05/08/25 08:30 05/09/25 20:57 Normal Saline Flush 10 Ml Syr IVP 20 ml BID TEX Administration Sodium Chloride 0 ml 05/08/25 06:18 Normal Saline 10 Ml Vial IJ DIRECTED PRN Trazodone HCl 100 mg 05/08/25 20:00 05/09/25 20:56 Trazodone 100 Mg Tab PO 100 mg HS TEX Administration np-[id number]-Srzbjhxnzp Acetate 400 units 05/08/25 08:30 05/09/25 20:56 Vitamin E 400 Units Cap PO 400 units BID TEX Administration Allergies ibuprofen Allergy (Unknown, Verified 05/08/25 04:35) ITCHING simvastatin Adverse Reaction (Intermediate, Verified 05/08/25 04:35) ? OF NEUROPATHY OF FEET ILENE Inhibitors Adverse Reaction (Unknown, Verified 05/08/25 04:35) COUGH Labs 05/10/25 05:20 05/10/25 05:20 Labs: 05/08/25 01:25 Blood Blood Culture - Preliminary NO GROWTH 48 HOURS 05/08/25 01:12 Blood Blood Culture - Preliminary NO GROWTH 48 HOURS Laboratory Tests Range/Units 05/08/25 05/08/25 05/08/25 00:30 00:45 00:55 WBC (4.4-10.8) 10^3/uL 7.91 RBC (4.36-5.78) 10^6/uL 4.91 Hgb (13.5-17.5) g/dL 14.7 Hct (40.0-50.0) % 50.1 H MCV (80-95) fL 102 H MCH (27.0-33.0) pg 29.9 MCHC (32.0-36.0) % 29.3 L RDW (11.8-14.1) % 14.2 H Plt Count (130-400) 10^3/uL 122 L MPV (8.0-11.0) fL 12.1 H Immature Gran % % 0.5 Neutrophils % % 76.2 Lymphocytes % % 13.0 Monocytes % % 7.3 Eosinophils % % 2.7 Basophils % % 0.3 Nucleated RBC % (0.0-0.3) % 0.0 Absolute Neutrophils (1.2-6.7) 10^3/uL 6.03 Absolute Lymphocytes (1.2-3.4) 10^3/uL 1.03 L Absolute Monocytes (0.1-0.8) 10^3/uL 0.58 Absolute Eosinophils (0.0-0.7) 10^3/uL 0.21 Absolute Basophils (0.0-0.2) 10^3/uL 0.02 PT (9.1-11.1) sec INR (0.9-1.1) D-Dimer (<500) ng/mlFEU ABG Sample Site ABG pH (7.35-7.45) ABG pCO2 (35-45) mmHg ABG pO2 (80-105) mmHg ABG HCO3 (22-26) mmol/L ABG Total CO2 (23-27) mmol/L ABG O2 Saturation (95-98) % ABG Base Excess (-2-3) mmol/L VBG pH (7.31-7.41) 7.22 L Cancelled VBG pCO2 (41-51) mmHg 88 H* Cancelled VBG pO2 mmHg 83 Cancelled VBG HCO3 (23-28) mmol/L 37 H Cancelled VBG Total CO2 (24-29) mmol/L 39 H Cancelled VBG O2 Saturation % 93 Cancelled VBG Base Excess (-2-3) mmol/L 9 H Cancelled VBG Lactate (<or=2.0) mmol/L 1.1 Cancelled Oxygen Liter Flow L Sodium (136-145) mmol/L Potassium (3.5-5.1) mmol/L Chloride (98-107) mmol/L Carbon Dioxide (20.0-31.0) mmol/L Anion Gap (3-11) mmol/L BUN (9-23) mg/dL Creatinine (0.73-1.18) mg/dL Est GFR (CKD-EPI 2020) (mL/min/1.73m2) Glucose (74-106) mg/dL Calcium (8.3-10.6) mg/dL Magnesium (1.6-2.6) mg/dL Total Bilirubin (0.2-1.2) mg/dL AST (<34) U/L ALT (10-49) U/L Alkaline Phosphatase (46-116) U/L Troponin I (<54) ng/L NT-Pro-B Natriuret Pep (<300) pg/mL Total Protein (5.7-8.2) g/dL Albumin (3.2-5.0) g/dL TSH (0.55-4.78) uIU/mL Urine Color (Yellow) Urine Clarity (Clear) Urine pH (5-8) Ur Specific [place] (1.005-1.025) Urine Protein (Neg-Trace) mg/dL Urine Ketones (Negative) mg/dL Urine Blood (Negative) Urine Nitrite (Negative) Urine Bilirubin (Negative) Urine Urobilinogen (Up to 0.2) mg/dL Ur Leukocyte Esterase (Negative) Urine RBC (0-2) HPF Urine WBC (0-5) HPF Ur Epithelial Cells (Negative) HPF Urine Crystals (Negative) HPF Urine Bacteria (Negative) HPF Urine Casts (Negative) LPF Urine Mucus (Negative) Ur Culture Indicated? Urine Glucose (Negative) mg/dL COVID-19 Source SARS-CoV-2 (PCR) (Negative) Influenza Type A (PCR) (Negative) Influenza Type B (PCR) (Negative) RSV (PCR) (Negative) Add-On Test Request Range/Units 05/08/25 05/08/25 05/08/25 01:23 01:25 02:20 WBC (4.4-10.8) 10^3/uL RBC (4.36-5.78) 10^6/uL Hgb (13.5-17.5) g/dL Hct (40.0-50.0) % MCV (80-95) fL MCH (27.0-33.0) pg MCHC (32.0-36.0) % RDW (11.8-14.1) % Plt Count (130-400) 10^3/uL MPV (8.0-11.0) fL Immature Gran % % Neutrophils % % Lymphocytes % % Monocytes % % Eosinophils % % Basophils % % Nucleated RBC % (0.0-0.3) % Absolute Neutrophils (1.2-6.7) 10^3/uL Absolute Lymphocytes (1.2-3.4) 10^3/uL Absolute Monocytes (0.1-0.8) 10^3/uL Absolute Eosinophils (0.0-0.7) 10^3/uL Absolute Basophils (0.0-0.2) 10^3/uL PT (9.1-11.1) sec INR (0.9-1.1) D-Dimer (<500) ng/mlFEU 413 ABG Sample Site ABG pH (7.35-7.45) ABG pCO2 (35-45) mmHg ABG pO2 (80-105) mmHg ABG HCO3 (22-26) mmol/L ABG Total CO2 (23-27) mmol/L ABG O2 Saturation (95-98) % ABG Base Excess (-2-3) mmol/L VBG pH (7.31-7.41) 7.25 L VBG pCO2 (41-51) mmHg 78 H* VBG pO2 mmHg 58 VBG HCO3 (23-28) mmol/L 34 H VBG Total CO2 (24-29) mmol/L 31 H VBG O2 Saturation % 86 VBG Base Excess (-2-3) mmol/L 7 H VBG Lactate (<or=2.0) mmol/L Oxygen Liter Flow L Sodium (136-145) mmol/L 143 Potassium (3.5-5.1) mmol/L 5.2 H Chloride (98-107) mmol/L 104 Carbon Dioxide (20.0-31.0) mmol/L 35.9 H Anion Gap (3-11) mmol/L 3.1 BUN (9-23) mg/dL 37 H Creatinine (0.73-1.18) mg/dL 1.64 H Est GFR (CKD-EPI 2020) (mL/min/1.73m2) 40.99 Glucose (74-106) mg/dL 183 H Calcium (8.3-10.6) mg/dL 8.5 Magnesium (1.6-2.6) mg/dL 2.2 Total Bilirubin (0.2-1.2) mg/dL 0.5 AST (<34) U/L 13 ALT (10-49) U/L 7 L Alkaline Phosphatase (46-116) U/L 101 Troponin I (<54) ng/L 17 15 NT-Pro-B Natriuret Pep (<300) pg/mL 1442 H Total Protein (5.7-8.2) g/dL 7.7 Albumin (3.2-5.0) g/dL 4.5 TSH (0.55-4.78) uIU/mL 2.81 Urine Color (Yellow) Urine Clarity (Clear) Urine pH (5-8) Ur Specific [place] (1.005-1.025) Urine Protein (Neg-Trace) mg/dL Urine Ketones (Negative) mg/dL Urine Blood (Negative) Urine Nitrite (Negative) Urine Bilirubin (Negative) Urine Urobilinogen (Up to 0.2) mg/dL Ur Leukocyte Esterase (Negative) Urine RBC (0-2) HPF Urine WBC (0-5) HPF Ur Epithelial Cells (Negative) HPF Urine Crystals (Negative) HPF Urine Bacteria (Negative) HPF Urine Casts (Negative) LPF Urine Mucus (Negative) Ur Culture Indicated? Urine Glucose (Negative) mg/dL COVID-19 Source Nasopharynx SARS-CoV-2 (PCR) (Negative) Negative Influenza Type A (PCR) (Negative) Negative Influenza Type B (PCR) (Negative) Negative RSV (PCR) (Negative) Negative Add-On Test Request Range/Units 05/08/25 05/08/25 05/08/25 02:39 02:45 03:35 WBC (4.4-10.8) 10^3/uL RBC (4.36-5.78) 10^6/uL Hgb (13.5-17.5) g/dL Hct (40.0-50.0) % MCV (80-95) fL MCH (27.0-33.0) pg MCHC (32.0-36.0) % RDW (11.8-14.1) % Plt Count (130-400) 10^3/uL MPV (8.0-11.0) fL Immature Gran % % Neutrophils % % Lymphocytes % % Monocytes % % Eosinophils % % Basophils % % Nucleated RBC % (0.0-0.3) % Absolute Neutrophils (1.2-6.7) 10^3/uL Absolute Lymphocytes (1.2-3.4) 10^3/uL Absolute Monocytes (0.1-0.8) 10^3/uL Absolute Eosinophils (0.0-0.7) 10^3/uL Absolute Basophils (0.0-0.2) 10^3/uL PT (9.1-11.1) sec INR (0.9-1.1) D-Dimer (<500) ng/mlFEU ABG Sample Site ABG pH (7.35-7.45) ABG pCO2 (35-45) mmHg ABG pO2 (80-105) mmHg ABG HCO3 (22-26) mmol/L ABG Total CO2 (23-27) mmol/L ABG O2 Saturation (95-98) % ABG Base Excess (-2-3) mmol/L VBG pH (7.31-7.41) Cancelled 7.22 L VBG pCO2 (41-51) mmHg Cancelled 83 H* VBG pO2 mmHg Cancelled 34 VBG HCO3 (23-28) mmol/L Cancelled 34 H VBG Total CO2 (24-29) mmol/L Cancelled 32 H VBG O2 Saturation % Cancelled 54 VBG Base Excess (-2-3) mmol/L Cancelled 6 H VBG Lactate (<or=2.0) mmol/L Oxygen Liter Flow L Sodium (136-145) mmol/L Potassium (3.5-5.1) mmol/L 5.0 Chloride (98-107) mmol/L Carbon Dioxide (20.0-31.0) mmol/L Anion Gap (3-11) mmol/L BUN (9-23) mg/dL Creatinine (0.73-1.18) mg/dL Est GFR (CKD-EPI 2020) (mL/min/1.73m2) Glucose (74-106) mg/dL Calcium (8.3-10.6) mg/dL Magnesium (1.6-2.6) mg/dL Total Bilirubin (0.2-1.2) mg/dL AST (<34) U/L ALT (10-49) U/L Alkaline Phosphatase (46-116) U/L Troponin I (<54) ng/L NT-Pro-B Natriuret Pep (<300) pg/mL Total Protein (5.7-8.2) g/dL Albumin (3.2-5.0) g/dL TSH (0.55-4.78) uIU/mL Urine Color (Yellow) Yellow Urine Clarity (Clear) Clear Urine pH (5-8) 5.5 Ur Specific [place] (1.005-1.025) 1.020 Urine Protein (Neg-Trace) mg/dL 30 H Urine Ketones (Negative) mg/dL Negative Urine Blood (Negative) Trace-intact H Urine Nitrite (Negative) Negative Urine Bilirubin (Negative) Negative Urine Urobilinogen (Up to 0.2) mg/dL 0.2 Ur Leukocyte Esterase (Negative) Negative Urine RBC (0-2) HPF 3-5 H Urine WBC (0-5) HPF Negative Ur Epithelial Cells (Negative) HPF Negative Urine Crystals (Negative) HPF Negative Urine Bacteria (Negative) HPF Rare Urine Casts (Negative) LPF Negative Urine Mucus (Negative) Negative Ur Culture Indicated? No Urine Glucose (Negative) mg/dL Negative COVID-19 Source SARS-CoV-2 (PCR) (Negative) Influenza Type A (PCR) (Negative) Influenza Type B (PCR) (Negative) RSV (PCR) (Negative) Add-On Test Request Range/Units 05/08/25 05/08/25 05/08/25 03:45 03:46 04:38 WBC (4.4-10.8) 10^3/uL RBC (4.36-5.78) 10^6/uL Hgb (13.5-17.5) g/dL Hct (40.0-50.0) % MCV (80-95) fL MCH (27.0-33.0) pg MCHC (32.0-36.0) % RDW (11.8-14.1) % Plt Count (130-400) 10^3/uL MPV (8.0-11.0) fL Immature Gran % % Neutrophils % % Lymphocytes % % Monocytes % % Eosinophils % % Basophils % % Nucleated RBC % (0.0-0.3) % Absolute Neutrophils (1.2-6.7) 10^3/uL Absolute Lymphocytes (1.2-3.4) 10^3/uL Absolute Monocytes (0.1-0.8) 10^3/uL Absolute Eosinophils (0.0-0.7) 10^3/uL Absolute Basophils (0.0-0.2) 10^3/uL PT (9.1-11.1) sec INR (0.9-1.1) D-Dimer (<500) ng/mlFEU ABG Sample Site ABG pH (7.35-7.45) ABG pCO2 (35-45) mmHg ABG pO2 (80-105) mmHg ABG HCO3 (22-26) mmol/L ABG Total CO2 (23-27) mmol/L ABG O2 Saturation (95-98) % ABG Base Excess (-2-3) mmol/L VBG pH (7.31-7.41) Cancelled 7.23 L VBG pCO2 (41-51) mmHg Cancelled 88 H* VBG pO2 mmHg Cancelled 28 VBG HCO3 (23-28) mmol/L Cancelled 37 H VBG Total CO2 (24-29) mmol/L Cancelled 34 H VBG O2 Saturation % Cancelled 43 VBG Base Excess (-2-3) mmol/L Cancelled 10 H VBG Lactate (<or=2.0) mmol/L Oxygen Liter Flow L Sodium (136-145) mmol/L Potassium (3.5-5.1) mmol/L Chloride (98-107) mmol/L Carbon Dioxide (20.0-31.0) mmol/L Anion Gap (3-11) mmol/L BUN (9-23) mg/dL Creatinine (0.73-1.18) mg/dL Est GFR (CKD-EPI 2020) (mL/min/1.73m2) Glucose (74-106) mg/dL Calcium (8.3-10.6) mg/dL Magnesium (1.6-2.6) mg/dL Total Bilirubin (0.2-1.2) mg/dL AST (<34) U/L ALT (10-49) U/L Alkaline Phosphatase (46-116) U/L Troponin I (<54) ng/L 17 NT-Pro-B Natriuret Pep (<300) pg/mL Total Protein (5.7-8.2) g/dL Albumin (3.2-5.0) g/dL TSH (0.55-4.78) uIU/mL Urine Color (Yellow) Urine Clarity (Clear) Urine pH (5-8) Ur Specific [place] (1.005-1.025) Urine Protein (Neg-Trace) mg/dL Urine Ketones (Negative) mg/dL Urine Blood (Negative) Urine Nitrite (Negative) Urine Bilirubin (Negative) Urine Urobilinogen (Up to 0.2) mg/dL Ur Leukocyte Esterase (Negative) Urine RBC (0-2) HPF Urine WBC (0-5) HPF Ur Epithelial Cells (Negative) HPF Urine Crystals (Negative) HPF Urine Bacteria (Negative) HPF Urine Casts (Negative) LPF Urine Mucus (Negative) Ur Culture Indicated? Urine Glucose (Negative) mg/dL COVID-19 Source SARS-CoV-2 (PCR) (Negative) Influenza Type A (PCR) (Negative) Influenza Type B (PCR) (Negative) RSV (PCR) (Negative) Add-On Test Request Cancelled Range/Units 05/08/25 05/08/25 05/08/25 04:45 05:45 05:47 WBC (4.4-10.8) 10^3/uL RBC (4.36-5.78) 10^6/uL Hgb (13.5-17.5) g/dL Hct (40.0-50.0) % MCV (80-95) fL MCH (27.0-33.0) pg MCHC (32.0-36.0) % RDW (11.8-14.1) % Plt Count (130-400) 10^3/uL MPV (8.0-11.0) fL Immature Gran % % Neutrophils % % Lymphocytes % % Monocytes % % Eosinophils % % Basophils % % Nucleated RBC % (0.0-0.3) % Absolute Neutrophils (1.2-6.7) 10^3/uL Absolute Lymphocytes (1.2-3.4) 10^3/uL Absolute Monocytes (0.1-0.8) 10^3/uL Absolute Eosinophils (0.0-0.7) 10^3/uL Absolute Basophils (0.0-0.2) 10^3/uL PT (9.1-11.1) sec INR (0.9-1.1) D-Dimer (<500) ng/mlFEU ABG Sample Site ABG pH (7.35-7.45) ABG pCO2 (35-45) mmHg ABG pO2 (80-105) mmHg ABG HCO3 (22-26) mmol/L ABG Total CO2 (23-27) mmol/L ABG O2 Saturation (95-98) % ABG Base Excess (-2-3) mmol/L VBG pH (7.31-7.41) Cancelled Cancelled 7.28 L VBG pCO2 (41-51) mmHg Cancelled Cancelled 80 H* VBG pO2 mmHg Cancelled Cancelled 27 VBG HCO3 (23-28) mmol/L Cancelled Cancelled 38 H VBG Total CO2 (24-29) mmol/L Cancelled Cancelled 35 H VBG O2 Saturation % Cancelled Cancelled 44 VBG Base Excess (-2-3) mmol/L Cancelled Cancelled 11 H VBG Lactate (<or=2.0) mmol/L Oxygen Liter Flow L Sodium (136-145) mmol/L Potassium (3.5-5.1) mmol/L Chloride (98-107) mmol/L Carbon Dioxide (20.0-31.0) mmol/L Anion Gap (3-11) mmol/L BUN (9-23) mg/dL Creatinine (0.73-1.18) mg/dL Est GFR (CKD-EPI 2020) (mL/min/1.73m2) Glucose (74-106) mg/dL Calcium (8.3-10.6) mg/dL Magnesium (1.6-2.6) mg/dL Total Bilirubin (0.2-1.2) mg/dL AST (<34) U/L ALT (10-49) U/L Alkaline Phosphatase (46-116) U/L Troponin I (<54) ng/L NT-Pro-B Natriuret Pep (<300) pg/mL Total Protein (5.7-8.2) g/dL Albumin (3.2-5.0) g/dL TSH (0.55-4.78) uIU/mL Urine Color (Yellow) Urine Clarity (Clear) Urine pH (5-8) Ur Specific [place] (1.005-1.025) Urine Protein (Neg-Trace) mg/dL Urine Ketones (Negative) mg/dL Urine Blood (Negative) Urine Nitrite (Negative) Urine Bilirubin (Negative) Urine Urobilinogen (Up to 0.2) mg/dL Ur Leukocyte Esterase (Negative) Urine RBC (0-2) HPF Urine WBC (0-5) HPF Ur Epithelial Cells (Negative) HPF Urine Crystals (Negative) HPF Urine Bacteria (Negative) HPF Urine Casts (Negative) LPF Urine Mucus (Negative) Ur Culture Indicated? Urine Glucose (Negative) mg/dL COVID-19 Source SARS-CoV-2 (PCR) (Negative) Influenza Type A (PCR) (Negative) Influenza Type B (PCR) (Negative) RSV (PCR) (Negative) Add-On Test Request Range/Units 05/08/25 05/08/25 05/08/25 06:30 06:45 06:57 WBC (4.4-10.8) 10^3/uL RBC (4.36-5.78) 10^6/uL Hgb (13.5-17.5) g/dL Hct (40.0-50.0) % MCV (80-95) fL MCH (27.0-33.0) pg MCHC (32.0-36.0) % RDW (11.8-14.1) % Plt Count (130-400) 10^3/uL MPV (8.0-11.0) fL Immature Gran % % Neutrophils % % Lymphocytes % % Monocytes % % Eosinophils % % Basophils % % Nucleated RBC % (0.0-0.3) % Absolute Neutrophils (1.2-6.7) 10^3/uL Absolute Lymphocytes (1.2-3.4) 10^3/uL Absolute Monocytes (0.1-0.8) 10^3/uL Absolute Eosinophils (0.0-0.7) 10^3/uL Absolute Basophils (0.0-0.2) 10^3/uL PT (9.1-11.1) sec INR (0.9-1.1) D-Dimer (<500) ng/mlFEU ABG Sample Site ABG pH (7.35-7.45) ABG pCO2 (35-45) mmHg ABG pO2 (80-105) mmHg ABG HCO3 (22-26) mmol/L ABG Total CO2 (23-27) mmol/L ABG O2 Saturation (95-98) % ABG Base Excess (-2-3) mmol/L VBG pH (7.31-7.41) Cancelled Cancelled 7.35 VBG pCO2 (41-51) mmHg Cancelled Cancelled 66 H* VBG pO2 mmHg Cancelled Cancelled 43 VBG HCO3 (23-28) mmol/L Cancelled Cancelled 36 H VBG Total CO2 (24-29) mmol/L Cancelled Cancelled 32 H VBG O2 Saturation % Cancelled Cancelled 78 VBG Base Excess (-2-3) mmol/L Cancelled Cancelled 11 H VBG Lactate (<or=2.0) mmol/L Oxygen Liter Flow L Sodium (136-145) mmol/L Potassium (3.5-5.1) mmol/L Chloride (98-107) mmol/L Carbon Dioxide (20.0-31.0) mmol/L Anion Gap (3-11) mmol/L BUN (9-23) mg/dL Creatinine (0.73-1.18) mg/dL Est GFR (CKD-EPI 2020) (mL/min/1.73m2) Glucose (74-106) mg/dL Calcium (8.3-10.6) mg/dL Magnesium (1.6-2.6) mg/dL Total Bilirubin (0.2-1.2) mg/dL AST (<34) U/L ALT (10-49) U/L Alkaline Phosphatase (46-116) U/L Troponin I (<54) ng/L NT-Pro-B Natriuret Pep (<300) pg/mL Total Protein (5.7-8.2) g/dL Albumin (3.2-5.0) g/dL TSH (0.55-4.78) uIU/mL Urine Color (Yellow) Urine Clarity (Clear) Urine pH (5-8) Ur Specific [place] (1.005-1.025) Urine Protein (Neg-Trace) mg/dL Urine Ketones (Negative) mg/dL Urine Blood (Negative) Urine Nitrite (Negative) Urine Bilirubin (Negative) Urine Urobilinogen (Up to 0.2) mg/dL Ur Leukocyte Esterase (Negative) Urine RBC (0-2) HPF Urine WBC (0-5) HPF Ur Epithelial Cells (Negative) HPF Urine Crystals (Negative) HPF Urine Bacteria (Negative) HPF Urine Casts (Negative) LPF Urine Mucus (Negative) Ur Culture Indicated? Urine Glucose (Negative) mg/dL COVID-19 Source SARS-CoV-2 (PCR) (Negative) Influenza Type A (PCR) (Negative) Influenza Type B (PCR) (Negative) RSV (PCR) (Negative) Add-On Test Request Range/Units 05/08/25 05/08/25 05/08/25 07:45 08:45 09:45 WBC (4.4-10.8) 10^3/uL RBC (4.36-5.78) 10^6/uL Hgb (13.5-17.5) g/dL Hct (40.0-50.0) % MCV (80-95) fL MCH (27.0-33.0) pg MCHC (32.0-36.0) % RDW (11.8-14.1) % Plt Count (130-400) 10^3/uL MPV (8.0-11.0) fL Immature Gran % % Neutrophils % % Lymphocytes % % Monocytes % % Eosinophils % % Basophils % % Nucleated RBC % (0.0-0.3) % Absolute Neutrophils (1.2-6.7) 10^3/uL Absolute Lymphocytes (1.2-3.4) 10^3/uL Absolute Monocytes (0.1-0.8) 10^3/uL Absolute Eosinophils (0.0-0.7) 10^3/uL Absolute Basophils (0.0-0.2) 10^3/uL PT (9.1-11.1) sec INR (0.9-1.1) D-Dimer (<500) ng/mlFEU ABG Sample Site ABG pH (7.35-7.45) ABG pCO2 (35-45) mmHg ABG pO2 (80-105) mmHg ABG HCO3 (22-26) mmol/L ABG Total CO2 (23-27) mmol/L ABG O2 Saturation (95-98) % ABG Base Excess (-2-3) mmol/L VBG pH (7.31-7.41) Cancelled Cancelled Cancelled VBG pCO2 (41-51) mmHg Cancelled Cancelled Cancelled VBG pO2 mmHg Cancelled Cancelled Cancelled VBG HCO3 (23-28) mmol/L Cancelled Cancelled Cancelled VBG Total CO2 (24-29) mmol/L Cancelled Cancelled Cancelled VBG O2 Saturation % Cancelled Cancelled Cancelled VBG Base Excess (-2-3) mmol/L Cancelled Cancelled Cancelled VBG Lactate (<or=2.0) mmol/L Oxygen Liter Flow L Sodium (136-145) mmol/L Potassium (3.5-5.1) mmol/L Chloride (98-107) mmol/L Carbon Dioxide (20.0-31.0) mmol/L Anion Gap (3-11) mmol/L BUN (9-23) mg/dL Creatinine (0.73-1.18) mg/dL Est GFR (CKD-EPI 2020) (mL/min/1.73m2) Glucose (74-106) mg/dL Calcium (8.3-10.6) mg/dL Magnesium (1.6-2.6) mg/dL Total Bilirubin (0.2-1.2) mg/dL AST (<34) U/L ALT (10-49) U/L Alkaline Phosphatase (46-116) U/L Troponin I (<54) ng/L NT-Pro-B Natriuret Pep (<300) pg/mL Total Protein (5.7-8.2) g/dL Albumin (3.2-5.0) g/dL TSH (0.55-4.78) uIU/mL Urine Color (Yellow) Urine Clarity (Clear) Urine pH (5-8) Ur Specific [place] (1.005-1.025) Urine Protein (Neg-Trace) mg/dL Urine Ketones (Negative) mg/dL Urine Blood (Negative) Urine Nitrite (Negative) Urine Bilirubin (Negative) Urine Urobilinogen (Up to 0.2) mg/dL Ur Leukocyte Esterase (Negative) Urine RBC (0-2) HPF Urine WBC (0-5) HPF Ur Epithelial Cells (Negative) HPF Urine Crystals (Negative) HPF Urine Bacteria (Negative) HPF Urine Casts (Negative) LPF Urine Mucus (Negative) Ur Culture Indicated? Urine Glucose (Negative) mg/dL COVID-19 Source SARS-CoV-2 (PCR) (Negative) Influenza Type A (PCR) (Negative) Influenza Type B (PCR) (Negative) RSV (PCR) (Negative) Add-On Test Request Range/Units 05/08/25 05/08/25 05/08/25 10:45 10:47 11:45 WBC (4.4-10.8) 10^3/uL RBC (4.36-5.78) 10^6/uL Hgb (13.5-17.5) g/dL Hct (40.0-50.0) % MCV (80-95) fL MCH (27.0-33.0) pg MCHC (32.0-36.0) % RDW (11.8-14.1) % Plt Count (130-400) 10^3/uL MPV (8.0-11.0) fL Immature Gran % % Neutrophils % % Lymphocytes % % Monocytes % % Eosinophils % % Basophils % % Nucleated RBC % (0.0-0.3) % Absolute Neutrophils (1.2-6.7) 10^3/uL Absolute Lymphocytes (1.2-3.4) 10^3/uL Absolute Monocytes (0.1-0.8) 10^3/uL Absolute Eosinophils (0.0-0.7) 10^3/uL Absolute Basophils (0.0-0.2) 10^3/uL PT (9.1-11.1) sec 17.1 H INR (0.9-1.1) 1.8 H D-Dimer (<500) ng/mlFEU ABG Sample Site ABG pH (7.35-7.45) ABG pCO2 (35-45) mmHg ABG pO2 (80-105) mmHg ABG HCO3 (22-26) mmol/L ABG Total CO2 (23-27) mmol/L ABG O2 Saturation (95-98) % ABG Base Excess (-2-3) mmol/L VBG pH (7.31-7.41) Cancelled 7.33 Cancelled VBG pCO2 (41-51) mmHg Cancelled 68 H* Cancelled VBG pO2 mmHg Cancelled 36 Cancelled VBG HCO3 (23-28) mmol/L Cancelled 36 H Cancelled VBG Total CO2 (24-29) mmol/L Cancelled 32 H Cancelled VBG O2 Saturation % Cancelled 66 Cancelled VBG Base Excess (-2-3) mmol/L Cancelled 10 H Cancelled VBG Lactate (<or=2.0) mmol/L Oxygen Liter Flow L Sodium (136-145) mmol/L Potassium (3.5-5.1) mmol/L Chloride (98-107) mmol/L Carbon Dioxide (20.0-31.0) mmol/L Anion Gap (3-11) mmol/L BUN (9-23) mg/dL Creatinine (0.73-1.18) mg/dL Est GFR (CKD-EPI 2020) (mL/min/1.73m2) Glucose (74-106) mg/dL Calcium (8.3-10.6) mg/dL Magnesium (1.6-2.6) mg/dL Total Bilirubin (0.2-1.2) mg/dL AST (<34) U/L ALT (10-49) U/L Alkaline Phosphatase (46-116) U/L Troponin I (<54) ng/L NT-Pro-B Natriuret Pep (<300) pg/mL Total Protein (5.7-8.2) g/dL Albumin (3.2-5.0) g/dL TSH (0.55-4.78) uIU/mL Urine Color (Yellow) Urine Clarity (Clear) Urine pH (5-8) Ur Specific [place] (1.005-1.025) Urine Protein (Neg-Trace) mg/dL Urine Ketones (Negative) mg/dL Urine Blood (Negative) Urine Nitrite (Negative) Urine Bilirubin (Negative) Urine Urobilinogen (Up to 0.2) mg/dL Ur Leukocyte Esterase (Negative) Urine RBC (0-2) HPF Urine WBC (0-5) HPF Ur Epithelial Cells (Negative) HPF Urine Crystals (Negative) HPF Urine Bacteria (Negative) HPF Urine Casts (Negative) LPF Urine Mucus (Negative) Ur Culture Indicated? Urine Glucose (Negative) mg/dL COVID-19 Source SARS-CoV-2 (PCR) (Negative) Influenza Type A (PCR) (Negative) Influenza Type B (PCR) (Negative) RSV (PCR) (Negative) Add-On Test Request Range/Units 05/08/25 05/08/25 05/08/25 12:45 13:45 14:45 WBC (4.4-10.8) 10^3/uL RBC (4.36-5.78) 10^6/uL Hgb (13.5-17.5) g/dL Hct (40.0-50.0) % MCV (80-95) fL MCH (27.0-33.0) pg MCHC (32.0-36.0) % RDW (11.8-14.1) % Plt Count (130-400) 10^3/uL MPV (8.0-11.0) fL Immature Gran % % Neutrophils % % Lymphocytes % % Monocytes % % Eosinophils % % Basophils % % Nucleated RBC % (0.0-0.3) % Absolute Neutrophils (1.2-6.7) 10^3/uL Absolute Lymphocytes (1.2-3.4) 10^3/uL Absolute Monocytes (0.1-0.8) 10^3/uL Absolute Eosinophils (0.0-0.7) 10^3/uL Absolute Basophils (0.0-0.2) 10^3/uL PT (9.1-11.1) sec INR (0.9-1.1) D-Dimer (<500) ng/mlFEU ABG Sample Site ABG pH (7.35-7.45) ABG pCO2 (35-45) mmHg ABG pO2 (80-105) mmHg ABG HCO3 (22-26) mmol/L ABG Total CO2 (23-27) mmol/L ABG O2 Saturation (95-98) % ABG Base Excess (-2-3) mmol/L VBG pH (7.31-7.41) Cancelled Cancelled Cancelled VBG pCO2 (41-51) mmHg Cancelled Cancelled Cancelled VBG pO2 mmHg Cancelled Cancelled Cancelled VBG HCO3 (23-28) mmol/L Cancelled Cancelled Cancelled VBG Total CO2 (24-29) mmol/L Cancelled Cancelled Cancelled VBG O2 Saturation % Cancelled Cancelled Cancelled VBG Base Excess (-2-3) mmol/L Cancelled Cancelled Cancelled VBG Lactate (<or=2.0) mmol/L Oxygen Liter Flow L Sodium (136-145) mmol/L Potassium (3.5-5.1) mmol/L Chloride (98-107) mmol/L Carbon Dioxide (20.0-31.0) mmol/L Anion Gap (3-11) mmol/L BUN (9-23) mg/dL Creatinine (0.73-1.18) mg/dL Est GFR (CKD-EPI 2020) (mL/min/1.73m2) Glucose (74-106) mg/dL Calcium (8.3-10.6) mg/dL Magnesium (1.6-2.6) mg/dL Total Bilirubin (0.2-1.2) mg/dL AST (<34) U/L ALT (10-49) U/L Alkaline Phosphatase (46-116) U/L Troponin I (<54) ng/L NT-Pro-B Natriuret Pep (<300) pg/mL Total Protein (5.7-8.2) g/dL Albumin (3.2-5.0) g/dL TSH (0.55-4.78) uIU/mL Urine Color (Yellow) Urine Clarity (Clear) Urine pH (5-8) Ur Specific [place] (1.005-1.025) Urine Protein (Neg-Trace) mg/dL Urine Ketones (Negative) mg/dL Urine Blood (Negative) Urine Nitrite (Negative) Urine Bilirubin (Negative) Urine Urobilinogen (Up to 0.2) mg/dL Ur Leukocyte Esterase (Negative) Urine RBC (0-2) HPF Urine WBC (0-5) HPF Ur Epithelial Cells (Negative) HPF Urine Crystals (Negative) HPF Urine Bacteria (Negative) HPF Urine Casts (Negative) LPF Urine Mucus (Negative) Ur Culture Indicated? Urine Glucose (Negative) mg/dL COVID-19 Source SARS-CoV-2 (PCR) (Negative) Influenza Type A (PCR) (Negative) Influenza Type B (PCR) (Negative) RSV (PCR) (Negative) Add-On Test Request Range/Units 05/08/25 05/08/25 05/08/25 14:59 15:45 16:45 WBC (4.4-10.8) 10^3/uL RBC (4.36-5.78) 10^6/uL Hgb (13.5-17.5) g/dL Hct (40.0-50.0) % MCV (80-95) fL MCH (27.0-33.0) pg MCHC (32.0-36.0) % RDW (11.8-14.1) % Plt Count (130-400) 10^3/uL MPV (8.0-11.0) fL Immature Gran % % Neutrophils % % Lymphocytes % % Monocytes % % Eosinophils % % Basophils % % Nucleated RBC % (0.0-0.3) % Absolute Neutrophils (1.2-6.7) 10^3/uL Absolute Lymphocytes (1.2-3.4) 10^3/uL Absolute Monocytes (0.1-0.8) 10^3/uL Absolute Eosinophils (0.0-0.7) 10^3/uL Absolute Basophils (0.0-0.2) 10^3/uL PT (9.1-11.1) sec INR (0.9-1.1) D-Dimer (<500) ng/mlFEU ABG Sample Site ABG pH (7.35-7.45) ABG pCO2 (35-45) mmHg ABG pO2 (80-105) mmHg ABG HCO3 (22-26) mmol/L ABG Total CO2 (23-27) mmol/L ABG O2 Saturation (95-98) % ABG Base Excess (-2-3) mmol/L VBG pH (7.31-7.41) 7.27 L Cancelled Cancelled VBG pCO2 (41-51) mmHg 79 H* Cancelled Cancelled VBG pO2 mmHg 38 Cancelled Cancelled VBG HCO3 (23-28) mmol/L 36 H Cancelled Cancelled VBG Total CO2 (24-29) mmol/L 33 H Cancelled Cancelled VBG O2 Saturation % 66 Cancelled Cancelled VBG Base Excess (-2-3) mmol/L 10 H Cancelled Cancelled VBG Lactate (<or=2.0) mmol/L Oxygen Liter Flow L Sodium (136-145) mmol/L Potassium (3.5-5.1) mmol/L Chloride (98-107) mmol/L Carbon Dioxide (20.0-31.0) mmol/L Anion Gap (3-11) mmol/L BUN (9-23) mg/dL Creatinine (0.73-1.18) mg/dL Est GFR (CKD-EPI 2020) (mL/min/1.73m2) Glucose (74-106) mg/dL Calcium (8.3-10.6) mg/dL Magnesium (1.6-2.6) mg/dL Total Bilirubin (0.2-1.2) mg/dL AST (<34) U/L ALT (10-49) U/L Alkaline Phosphatase (46-116) U/L Troponin I (<54) ng/L NT-Pro-B Natriuret Pep (<300) pg/mL Total Protein (5.7-8.2) g/dL Albumin (3.2-5.0) g/dL TSH (0.55-4.78) uIU/mL Urine Color (Yellow) Urine Clarity (Clear) Urine pH (5-8) Ur Specific [place] (1.005-1.025) Urine Protein (Neg-Trace) mg/dL Urine Ketones (Negative) mg/dL Urine Blood (Negative) Urine Nitrite (Negative) Urine Bilirubin (Negative) Urine Urobilinogen (Up to 0.2) mg/dL Ur Leukocyte Esterase (Negative) Urine RBC (0-2) HPF Urine WBC (0-5) HPF Ur Epithelial Cells (Negative) HPF Urine Crystals (Negative) HPF Urine Bacteria (Negative) HPF Urine Casts (Negative) LPF Urine Mucus (Negative) Ur Culture Indicated? Urine Glucose (Negative) mg/dL COVID-19 Source SARS-CoV-2 (PCR) (Negative) Influenza Type A (PCR) (Negative) Influenza Type B (PCR) (Negative) RSV (PCR) (Negative) Add-On Test Request Range/Units 05/08/25 05/08/25 05/08/25 17:45 18:45 19:45 WBC (4.4-10.8) 10^3/uL RBC (4.36-5.78) 10^6/uL Hgb (13.5-17.5) g/dL Hct (40.0-50.0) % MCV (80-95) fL MCH (27.0-33.0) pg MCHC (32.0-36.0) % RDW (11.8-14.1) % Plt Count (130-400) 10^3/uL MPV (8.0-11.0) fL Immature Gran % % Neutrophils % % Lymphocytes % % Monocytes % % Eosinophils % % Basophils % % Nucleated RBC % (0.0-0.3) % Absolute Neutrophils (1.2-6.7) 10^3/uL Absolute Lymphocytes (1.2-3.4) 10^3/uL Absolute Monocytes (0.1-0.8) 10^3/uL Absolute Eosinophils (0.0-0.7) 10^3/uL Absolute Basophils (0.0-0.2) 10^3/uL PT (9.1-11.1) sec INR (0.9-1.1) D-Dimer (<500) ng/mlFEU ABG Sample Site ABG pH (7.35-7.45) ABG pCO2 (35-45) mmHg ABG pO2 (80-105) mmHg ABG HCO3 (22-26) mmol/L ABG Total CO2 (23-27) mmol/L ABG O2 Saturation (95-98) % ABG Base Excess (-2-3) mmol/L VBG pH (7.31-7.41) Cancelled Cancelled Cancelled VBG pCO2 (41-51) mmHg Cancelled Cancelled Cancelled VBG pO2 mmHg Cancelled Cancelled Cancelled VBG HCO3 (23-28) mmol/L Cancelled Cancelled Cancelled VBG Total CO2 (24-29) mmol/L Cancelled Cancelled Cancelled VBG O2 Saturation % Cancelled Cancelled Cancelled VBG Base Excess (-2-3) mmol/L Cancelled Cancelled Cancelled VBG Lactate (<or=2.0) mmol/L Oxygen Liter Flow L Sodium (136-145) mmol/L Potassium (3.5-5.1) mmol/L Chloride (98-107) mmol/L Carbon Dioxide (20.0-31.0) mmol/L Anion Gap (3-11) mmol/L BUN (9-23) mg/dL Creatinine (0.73-1.18) mg/dL Est GFR (CKD-EPI 2020) (mL/min/1.73m2) Glucose (74-106) mg/dL Calcium (8.3-10.6) mg/dL Magnesium (1.6-2.6) mg/dL Total Bilirubin (0.2-1.2) mg/dL AST (<34) U/L ALT (10-49) U/L Alkaline Phosphatase (46-116) U/L Troponin I (<54) ng/L NT-Pro-B Natriuret Pep (<300) pg/mL Total Protein (5.7-8.2) g/dL Albumin (3.2-5.0) g/dL TSH (0.55-4.78) uIU/mL Urine Color (Yellow) Urine Clarity (Clear) Urine pH (5-8) Ur Specific [place] (1.005-1.025) Urine Protein (Neg-Trace) mg/dL Urine Ketones (Negative) mg/dL Urine Blood (Negative) Urine Nitrite (Negative) Urine Bilirubin (Negative) Urine Urobilinogen (Up to 0.2) mg/dL Ur Leukocyte Esterase (Negative) Urine RBC (0-2) HPF Urine WBC (0-5) HPF Ur Epithelial Cells (Negative) HPF Urine Crystals (Negative) HPF Urine Bacteria (Negative) HPF Urine Casts (Negative) LPF Urine Mucus (Negative) Ur Culture Indicated? Urine Glucose (Negative) mg/dL COVID-19 Source SARS-CoV-2 (PCR) (Negative) Influenza Type A (PCR) (Negative) Influenza Type B (PCR) (Negative) RSV (PCR) (Negative) Add-On Test Request Range/Units 05/08/25 05/08/25 05/08/25 20:45 21:45 22:40 WBC (4.4-10.8) 10^3/uL RBC (4.36-5.78) 10^6/uL Hgb (13.5-17.5) g/dL Hct (40.0-50.0) % MCV (80-95) fL MCH (27.0-33.0) pg MCHC (32.0-36.0) % RDW (11.8-14.1) % Plt Count (130-400) 10^3/uL MPV (8.0-11.0) fL Immature Gran % % Neutrophils % % Lymphocytes % % Monocytes % % Eosinophils % % Basophils % % Nucleated RBC % (0.0-0.3) % Absolute Neutrophils (1.2-6.7) 10^3/uL Absolute Lymphocytes (1.2-3.4) 10^3/uL Absolute Monocytes (0.1-0.8) 10^3/uL Absolute Eosinophils (0.0-0.7) 10^3/uL Absolute Basophils (0.0-0.2) 10^3/uL PT (9.1-11.1) sec INR (0.9-1.1) D-Dimer (<500) ng/mlFEU ABG Sample Site ABG pH (7.35-7.45) ABG pCO2 (35-45) mmHg ABG pO2 (80-105) mmHg ABG HCO3 (22-26) mmol/L ABG Total CO2 (23-27) mmol/L ABG O2 Saturation (95-98) % ABG Base Excess (-2-3) mmol/L VBG pH (7.31-7.41) Cancelled Cancelled 7.39 VBG pCO2 (41-51) mmHg Cancelled Cancelled 55 H VBG pO2 mmHg Cancelled Cancelled 40 VBG HCO3 (23-28) mmol/L Cancelled Cancelled 33 H VBG Total CO2 (24-29) mmol/L Cancelled Cancelled 30 H VBG O2 Saturation % Cancelled Cancelled 79 VBG Base Excess (-2-3) mmol/L Cancelled Cancelled 8 H VBG Lactate (<or=2.0) mmol/L Oxygen Liter Flow L Sodium (136-145) mmol/L Potassium (3.5-5.1) mmol/L Chloride (98-107) mmol/L Carbon Dioxide (20.0-31.0) mmol/L Anion Gap (3-11) mmol/L BUN (9-23) mg/dL Creatinine (0.73-1.18) mg/dL Est GFR (CKD-EPI 2020) (mL/min/1.73m2) Glucose (74-106) mg/dL Calcium (8.3-10.6) mg/dL Magnesium (1.6-2.6) mg/dL Total Bilirubin (0.2-1.2) mg/dL AST (<34) U/L ALT (10-49) U/L Alkaline Phosphatase (46-116) U/L Troponin I (<54) ng/L NT-Pro-B Natriuret Pep (<300) pg/mL Total Protein (5.7-8.2) g/dL Albumin (3.2-5.0) g/dL TSH (0.55-4.78) uIU/mL Urine Color (Yellow) Urine Clarity (Clear) Urine pH (5-8) Ur Specific [place] (1.005-1.025) Urine Protein (Neg-Trace) mg/dL Urine Ketones (Negative) mg/dL Urine Blood (Negative) Urine Nitrite (Negative) Urine Bilirubin (Negative) Urine Urobilinogen (Up to 0.2) mg/dL Ur Leukocyte Esterase (Negative) Urine RBC (0-2) HPF Urine WBC (0-5) HPF Ur Epithelial Cells (Negative) HPF Urine Crystals (Negative) HPF Urine Bacteria (Negative) HPF Urine Casts (Negative) LPF Urine Mucus (Negative) Ur Culture Indicated? Urine Glucose (Negative) mg/dL COVID-19 Source SARS-CoV-2 (PCR) (Negative) Influenza Type A (PCR) (Negative) Influenza Type B (PCR) (Negative) RSV (PCR) (Negative) Add-On Test Request Range/Units 05/08/25 05/08/25 05/09/25 22:45 23:45 05:40 WBC (4.4-10.8) 10^3/uL 8.17 RBC (4.36-5.78) 10^6/uL 4.67 Hgb (13.5-17.5) g/dL 14.3 Hct (40.0-50.0) % 47.6 MCV (80-95) fL 102 H MCH (27.0-33.0) pg 30.6 MCHC (32.0-36.0) % 30.0 L RDW (11.8-14.1) % 14.1 Plt Count (130-400) 10^3/uL 106 L MPV (8.0-11.0) fL 11.5 H Immature Gran % % Neutrophils % % Lymphocytes % % Monocytes % % Eosinophils % % Basophils % % Nucleated RBC % (0.0-0.3) % Absolute Neutrophils (1.2-6.7) 10^3/uL Absolute Lymphocytes (1.2-3.4) 10^3/uL Absolute Monocytes (0.1-0.8) 10^3/uL Absolute Eosinophils (0.0-0.7) 10^3/uL Absolute Basophils (0.0-0.2) 10^3/uL PT (9.1-11.1) sec INR (0.9-1.1) D-Dimer (<500) ng/mlFEU ABG Sample Site ABG pH (7.35-7.45) ABG pCO2 (35-45) mmHg ABG pO2 (80-105) mmHg ABG HCO3 (22-26) mmol/L ABG Total CO2 (23-27) mmol/L ABG O2 Saturation (95-98) % ABG Base Excess (-2-3) mmol/L VBG pH (7.31-7.41) Cancelled Cancelled VBG pCO2 (41-51) mmHg Cancelled Cancelled VBG pO2 mmHg Cancelled Cancelled VBG HCO3 (23-28) mmol/L Cancelled Cancelled VBG Total CO2 (24-29) mmol/L Cancelled Cancelled VBG O2 Saturation % Cancelled Cancelled VBG Base Excess (-2-3) mmol/L Cancelled Cancelled VBG Lactate (<or=2.0) mmol/L Oxygen Liter Flow L Sodium (136-145) mmol/L 140 Potassium (3.5-5.1) mmol/L 4.5 Chloride (98-107) mmol/L 97 L Carbon Dioxide (20.0-31.0) mmol/L 38.0 H Anion Gap (3-11) mmol/L 4.7 BUN (9-23) mg/dL 37 H Creatinine (0.73-1.18) mg/dL 1.37 H Est GFR (CKD-EPI 2020) (mL/min/1.73m2) 50.44 Glucose (74-106) mg/dL 117 H Calcium (8.3-10.6) mg/dL 8.0 L Magnesium (1.6-2.6) mg/dL 1.9 Total Bilirubin (0.2-1.2) mg/dL 0.6 AST (<34) U/L 18 ALT (10-49) U/L < 7 L Alkaline Phosphatase (46-116) U/L 82 Troponin I (<54) ng/L NT-Pro-B Natriuret Pep (<300) pg/mL Total Protein (5.7-8.2) g/dL 6.5 Albumin (3.2-5.0) g/dL 3.8 TSH (0.55-4.78) uIU/mL Urine Color (Yellow) Urine Clarity (Clear) Urine pH (5-8) Ur Specific [place] (1.005-1.025) Urine Protein (Neg-Trace) mg/dL Urine Ketones (Negative) mg/dL Urine Blood (Negative) Urine Nitrite (Negative) Urine Bilirubin (Negative) Urine Urobilinogen (Up to 0.2) mg/dL Ur Leukocyte Esterase (Negative) Urine RBC (0-2) HPF Urine WBC (0-5) HPF Ur Epithelial Cells (Negative) HPF Urine Crystals (Negative) HPF Urine Bacteria (Negative) HPF Urine Casts (Negative) LPF Urine Mucus (Negative) Ur Culture Indicated? Urine Glucose (Negative) mg/dL COVID-19 Source SARS-CoV-2 (PCR) (Negative) Influenza Type A (PCR) (Negative) Influenza Type B (PCR) (Negative) RSV (PCR) (Negative) Add-On Test Request Range/Units 05/09/25 05/09/25 07:53 08:52 WBC (4.4-10.8) 10^3/uL RBC (4.36-5.78) 10^6/uL Hgb (13.5-17.5) g/dL Hct (40.0-50.0) % MCV (80-95) fL MCH (27.0-33.0) pg MCHC (32.0-36.0) % RDW (11.8-14.1) % Plt Count (130-400) 10^3/uL MPV (8.0-11.0) fL Immature Gran % % Neutrophils % % Lymphocytes % % Monocytes % % Eosinophils % % Basophils % % Nucleated RBC % (0.0-0.3) % Absolute Neutrophils (1.2-6.7) 10^3/uL Absolute Lymphocytes (1.2-3.4) 10^3/uL Absolute Monocytes (0.1-0.8) 10^3/uL Absolute Eosinophils (0.0-0.7) 10^3/uL Absolute Basophils (0.0-0.2) 10^3/uL PT (9.1-11.1) sec INR (0.9-1.1) D-Dimer (<500) ng/mlFEU ABG Sample Site Right Radial ABG pH (7.35-7.45) 7.31 L ABG pCO2 (35-45) mmHg 72 H* ABG pO2 (80-105) mmHg 62 L ABG HCO3 (22-26) mmol/L 37 H ABG Total CO2 (23-27) mmol/L 33 H ABG O2 Saturation (95-98) % 92 L ABG Base Excess (-2-3) mmol/L 10 H VBG pH (7.31-7.41) 7.24 L VBG pCO2 (41-51) mmHg 92 H* VBG pO2 mmHg 24 VBG HCO3 (23-28) mmol/L 39 H VBG Total CO2 (24-29) mmol/L 36 H VBG O2 Saturation % 35 VBG Base Excess (-2-3) mmol/L 12 H VBG Lactate (<or=2.0) mmol/L Oxygen Liter Flow L 4 Sodium (136-145) mmol/L Potassium (3.5-5.1) mmol/L Chloride (98-107) mmol/L Carbon Dioxide (20.0-31.0) mmol/L Anion Gap (3-11) mmol/L BUN (9-23) mg/dL Creatinine (0.73-1.18) mg/dL Est GFR (CKD-EPI 2020) (mL/min/1.73m2) Glucose (74-106) mg/dL Calcium (8.3-10.6) mg/dL Magnesium (1.6-2.6) mg/dL Total Bilirubin (0.2-1.2) mg/dL AST (<34) U/L ALT (10-49) U/L Alkaline Phosphatase (46-116) U/L Troponin I (<54) ng/L NT-Pro-B Natriuret Pep (<300) pg/mL Total Protein (5.7-8.2) g/dL Albumin (3.2-5.0) g/dL TSH (0.55-4.78) uIU/mL Urine Color (Yellow) Urine Clarity (Clear) Urine pH (5-8) Ur Specific [place] (1.005-1.025) Urine Protein (Neg-Trace) mg/dL Urine Ketones (Negative) mg/dL Urine Blood (Negative) Urine Nitrite (Negative) Urine Bilirubin (Negative) Urine Urobilinogen (Up to 0.2) mg/dL Ur Leukocyte Esterase (Negative) Urine RBC (0-2) HPF Urine WBC (0-5) HPF Ur Epithelial Cells (Negative) HPF Urine Crystals (Negative) HPF Urine Bacteria (Negative) HPF Urine Casts (Negative) LPF Urine Mucus (Negative) Ur Culture Indicated? Urine Glucose (Negative) mg/dL COVID-19 Source SARS-CoV-2 (PCR) (Negative) Influenza Type A (PCR) (Negative) Influenza Type B (PCR) (Negative) RSV (PCR) (Negative) Add-On Test Request Imaging Chest x-ray: report reviewed and image reviewed
[2025-05-10 06:31] LABS: Magnesium 1.9 mg/dL (1.6-2.6)
[2025-05-10 06:46] LABS: ALT < 7 U/L (10-49); AST 19 U/L (<34); Albumin 3.9 g/dL (3.2-5.0); Alkaline Phosphatase 86 U/L (46-116); Anion Gap 6.6 mmol/L (3-11); BUN 39 mg/dL (9-23); Bilirubin, Total 0.7 mg/dL (0.2-1.2); CO2 35.5 mmol/L (20.0-31.0); Calcium 8.8 mg/dL (8.3-10.6); Chloride 96 mmol/L (98-107); Glucose 110 mg/dL (74-106); Potassium 4.4 mmol/L (3.5-5.1); Sodium 138 mmol/L (136-145); Total Protein 6.4 g/dL (5.7-8.2)
[2025-05-10 07:22] LABS: MCV 98 fL (80-95)
[2025-05-10] MEDS: Furosemide 40 MG/4 ML VIAL IVP ×2 (09:27→16:03)
[2025-05-10] MEDS: Normal Saline Flush 10 ML SYR IVP ×3 (09:27→20:33)
[2025-05-10] MEDS: Azithromycin 250 MG TAB 500 MG PO (09:28)
[2025-05-10] MEDS: Memantine 5 MG TAB 10 MG PO ×2 (09:28→20:33)
[2025-05-10] MEDS: Cyanocobalamin 500 MCG TAB 1000 MCG PO (09:28)
[2025-05-10] MEDS: Rivaroxaban 10 MG TABLET 20 MG PO (09:28)
[2025-05-10] MEDS: DULoxetine 30 MG CAP 60 MG PO ×2 (09:28→20:32)
[2025-05-10] MEDS: rOPINIRole 0.25 MG TAB PO ×3 (09:29→20:32)
[2025-05-10] MEDS: Mirabegron 25 MG TABCR PO (09:29)
[2025-05-10] MEDS: Pregabalin 100 MG CAP PO ×3 (09:29→20:32)
[2025-05-10] MEDS: Vitamin E 400 UNITS CAP PO ×2 (09:30→20:32)
[2025-05-10] MEDS: Refresh PLUS Eye Drops 0.4ml 1 EACH OP ×3 (09:30→20:32)
[2025-05-10] MEDS: Losartan 50 MG TAB PO (09:30)
[2025-05-10] MEDS: Olopatadine 0.1% OPHTH SOL 5 ML BTL 1 ML OP (09:30)
[2025-05-10] MEDS: Albuterol/Ipratropium 3 ML UPD VIAL UPD (11:26)
[2025-05-10] MEDS: Insulin Aspart 300 UNITS/3 ML PEN SC ×2 (11:55→17:21)
[2025-05-10] MEDS: cefTRIAXone 2 GM/50 ML BAG IVPB (14:39)
--- NOTE | 2025-05-10 16:37 | W.PM.PROGNOT ---
Date of Service Date of service: 05/10/25 Time of Service: 08:00 Assessment and Plan Assessment and plan (1) Acute respiratory failure with hypoxia and hypercarbia: Start date: 05/08/25 Status: Acute Assessment and plan: Appreciate Dr Mojica (pulmonology) consult Volatile CO2 in ABG/VBG not apparently related to bipap use / nonuse COPD exacerbation less likely than pulmonary edema, consider new HF Echocardiogram completed, read not available Diuresis with IV furosemide Dr Mojica is arranging home noninvasive ventilation (2) Congestive heart failure: Start date: 05/08/25 Status: Chronic Assessment and plan: Echo with EF 55-60% in atrial fibrillation, severe right atrial dilation, moderately elevated right side pressures (3) CONCHITA (acute kidney injury): Start date: 05/08/25 Status: Acute Assessment and plan: Elevated creatinine 1.64->1.37->1.27 against normal baseline, improving Continue diuresis, monitor UO (4) Hyperkalemia: Start date: 05/08/25 Status: Resolved Assessment and plan: Repleted, resolved. (5) Pneumonia: Start date: 05/08/25 Assessment and plan: Broad spectrum antibiotics discontinued Continue on CAP regimen, ceftriaxone and azithromycin (6) Essential hypertension: Assessment and plan: Continue outpatient medical therapy and adjust as needed. (7) Atrial fibrillation: Assessment and plan: Continue outpatient medical therapy along with oral anticoagulant with no evidence of acute hemorrhage. (8) Alzheimer dementia: Status: Chronic Assessment and plan: Continue outpatient treatment with Aricept and Namenda. He appears to be functioning fairly well with this problem. (9) Chronic obstructive lung disease: Assessment and plan: Patient is a remote smoker but not on inhalers recently. There is some evidence of chronic CO2 retention on his chemistries. Nebulizer treatments with DuoNeb while hospitalized though he does not have overt wheeze. (10) Diabetes mellitus: Assessment and plan: Hold outpatient medical therapy with glucometers before meals and at bedtime and moderate sliding scale coverage with his meals. (11) Neuropathy: Status: Chronic Assessment and plan: Continue outpatient medical therapy. (12) Hypothyroidism: Status: Chronic Assessment and plan: Continue outpatient supplement therapy. (13) PLMD (periodic limb movement disorder): Status: Chronic Assessment and plan: Continue outpatient medical therapy. (14) Depression: Status: Chronic Assessment and plan: This appears stable, continue outpatient medical therapy. Subjective Subjective Interval history since last seen: Mr. Kay had significant agitation overnight which resolved before he was given medication. He continues to need bipap intermittently. Exam Narrative Exam Narrative: General: This is a pleasant man on bipap HEENT: Normocephalic, atraumatic CV: irregular rate and irregular rhythm, no murmur Resp: Diminished breath sounds bilaterally on bipap Abd: soft, NTND MSK: voluntary motion x4 Neuro: awake, alert, no focal deficits Objective Last Vital Signs Temp 36.5 C 05/10/25 12:45 Pulse 102 H 05/10/25 14:45 Resp 27 H 05/10/25 14:45 BP 104/71 05/10/25 14:45 Pulse Ox 87 L 05/10/25 14:45 Laboratory Results - last 24 hr 05/10/25 05:20 WBC 8.59 RBC 4.54 Hgb 13.6 Hct 44.6 MCV 98 H D MCH 30.0 MCHC 30.5 L RDW 13.8 Plt Count 91 L MPV 12.4 H Sodium 138 Potassium 4.4 Chloride 96 L Carbon Dioxide 35.5 H Anion Gap 6.6 BUN 39 H Creatinine 1.27 H Est GFR (CKD-EPI 2020) 55.05 Glucose 110 H Calcium 8.8 Magnesium 1.9 Total Bilirubin 0.7 AST 19 ALT < 7 L Alkaline Phosphatase 86 Total Protein 6.4 Albumin 3.9 VTE Prohylaxis Risk Level: Moderate/High Risk Contraindications: Medical contrainidcation (Risk of falls with low platelet count,on Xarelto) Prophylaxis: Mechanical Time Spent with Patient Time Spent with Patient: 35-49 minutes Time was spent: preparing to see the patient(eg.review tests), obtaining and/or reviewing separately otained hiistory, ordering medications,tests, procedures, referring, communicating with other health administrator health care facility, indepentently interpreting results, counseling the patient and care coordination
--- NOTE | 2025-05-10 17:44 | PDOC.CMPRO ---
Date of service: 05/10/25 Time of Service: 11:00 Care Management Progress Note Progress Note Text Progress Note Text: Venkata was sitting up in the bed when CM met with him today. He was very pleasant with CM. He was hoping to go home today, but is not quite ready. He is still requiring nc O2, and was noted to be breathing fairly fast. Venkata has lived at the [facility] for the last 4 months, and loves it there. He feels he has made many friends. It looks like Venkata may need to go home on bipap. [facility] to check in on the status, but it was after hours. Discharge Potential Discharge Needs: PCP F/U Appt Anticipated Barriers to Discharge: None Identified Patient/Family Education Needs: Review discharge instructions, discuss Ask Me Three Transportation: Private vehicle Plan: Anticipate Venkata will be discharged back to [facility] when medically stable. He will follow up with his community providers and plan of care and transport with family or staff. CM will follow and continue to assess for discharge needs. Social Determinants of Health Screening Social Determinants of health last assessed in clinic: 05/10/25 Will the Patient Participate in the Screening?: Yes Do you worry about having a steady place to live?: no Problems where you live: no known problems In the past 12 months, have you had to go without electric, gas, oil or water in your home?: no 1. Within the past 12 months, we worried whether our food would run out before we got money to buy more.: Don't know/refused 2. Within the past 12 months, the food we bought just didn't last and we didn't have money to get more.: Don't know/refused Has lack of transportation kept you from medical appointments or from doing things needed for daily living?: no Has anyone in your life made you feel unsafe or unsupported?: no How hard is it for you to pay for the very basics like food, housing, medical care, and heating? Would you say it is:: Not hard at all Do you want help finding or keeping work or a job?: I do not need or want help If for any reason you need help with day-to-day activities such as bathing, preparing meals, shopping, managing finances, etc., do you get the help you need?: I don?t need any help How often do you feel lonely or isolated from those around you?: Rarely Do you speak a language other than Latvian at home?: No Comments: Pt resides at the [facility] Health Related Social Needs Health related social needs: feeling lonely/isolated (Z60.8) Health related social needs details: n/a
[2025-05-10] MEDS: Donepezil 5 MG TAB 10 MG PO (20:32)
[2025-05-10] MEDS: Pravastatin 40 MG TAB PO (20:32)
[2025-05-10] MEDS: traZODone 100 MG TAB PO (20:33)
[2025-05-11] VITALS (45 sets, daily range): BP systolic 102–120; BP diastolic 69–100; PULSE 59–156; RESP 15–44; TEMP 36.2–37; O2SAT 80–98
[2025-05-11] MEDS: Levothyroxine 25 MCG TAB PO (06:31)
--- NOTE | 2025-05-11 07:12 | W.PULMPROG ---
Assessment and Plan Assessment and plan (1) Acute and chronic respiratory failure with hypercapnia: Status: Acute (2) Acute hypoxic respiratory failure: Status: Acute (3) Obesity hypoventilation syndrome: Status: Acute (4) Pulmonary edema: Status: Acute General Date Of Service Date of service: 05/11/25 Time of Service: 07:30 Requesting physician: Koby Quintero Reason for Consult: Respiratory failure Recommendations: Assessment: 1. Acute hypoxemic respiratory failure - suspect due to pulmonary edema. Clinical picture less consistent with acute infectious pneumonia. WBC normal, afebrile, rapid improvement with diuresis / BiPAP, suggestive of CHF exacerbation/pulmonary edema. Currently on 2 L O2. 2. Acute on chronic hypercapnic respiratory failure - ddx: OHS vs COPD vs respiratory muscle fatigue/pulmonary edema. Baseline CO2 ~60 based on ABG results. No prior PFT's available 3. Pulmonary edema - clinically improved with diuresis. Echo showed normal EF and elevated right sided pressures (RVSP 53) 4. Hx tobacco abuse 5. Afib - on xarelto 6. 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 This would help reduced re-admission rates and improve his quality of life. Inquiring with his assisted living facility, what type of device they can accommodate and if there is assistance to help him with the device - Cr continues to improve, so continue with IV diuresis BID - PT/OT - can transfer out of ICU - plan for outpatient PFT's Discussed with Dr. Quintero Subjective Note Note: Patient is a 74 yo with a history of tobacco abuse, morbid obesity, Alzheimer's disease, afib, who was admitted for acute hypoxemic / hypercapnic respiratory failure. He was found down at his assisted living facility. SpO2 was in 70's. Was brought to the ED via EMS. VBG showed PCO2 88, pH 7.22. He was placed on BiPAP and given diuresis with improvement. Prior to hospialization, he denied any fevers, chills/night sweats, significant LE swelling or purulent sputum production. No known history of lung disease/COPD. Does not use any inhalers at home. Has not required BiPAP in the daytime for the past 24 hours. Tolerating well with sleep at night. Denied dyspnea at rest. No cough or chest pain ROS: 6 pt ROS negative except as in HPI Family history: Denied family history of lung disease Smoking history: smoked 1 ppd x 20 years. Quit 2009 Exam Narrative Exam Narrative: General: alert, no acute distress Head: normocephalic ENT: no stridor, trachea midline CV: normal rate, irregular rhythm Respiratory: no wheezing, no crackles, no rhonchi, no prolonged expiration GI: abd soft, non-tender, non-distended Skin: no rashes Extremities: trace edema, no digital clubbing Psych: normal affect Objective Last Vital Signs Temp 36.8 C 05/11/25 05:46 Pulse 93 H 05/11/25 06:01 Resp 22 05/11/25 06:01 BP 104/85 05/11/25 06:01 Pulse Ox 80 L 05/11/25 06:01 Laboratory Results - last 24 hr 05/10/25 05:20 WBC 8.59 RBC 4.54 Hgb 13.6 Hct 44.6 MCV 98 H D MCH 30.0 MCHC 30.5 L RDW 13.8 Plt Count 91 L MPV 12.4 H Results Medications Medications: Active Medications Generic Name Dose Route Start Last Admin Trade Name Freq PRN Reason Stop Dose Admin Acetaminophen 650 mg 05/08/25 06:18 05/09/25 20:56 Acetaminophen 325 Mg Tab PO 650 mg Q4H PRN PRN Administration Al Hydrox/Mg Hydrox/Simethicone 30 ml 05/08/25 06:18 Mylanta Suspension 30 Ml Cup PO Q2H PRN PRN Albuterol Sulfate 2.5 mg 05/08/25 06:18 05/10/25 04:12 Albuterol 2.5 Mg/3 Ml Inh Soln Vial UPD 2.5 mg Q2H PRN PRN Administration Albuterol/Ipratropium 3 ml 05/10/25 19:07 Albuterol/Ipratropium 3 Ml Upd Vial UPD Q6H PRN PRN Azithromycin 500 mg 05/08/25 12:00 05/10/25 09:28 Azithromycin 250 Mg Tab PO 05/11/25 08:31 500 mg DAILY TEX Administration Carboxymethylcellulose Sodium 1 each 05/08/25 08:30 05/10/25 20:32 Refresh Plus Eye Drops 0.4ml OP 1 drp TID TEX Administration Cyanocobalamin 1,000 mcg 05/08/25 08:30 05/10/25 09:28 Cyanocobalamin 500 Mcg Tab PO 1,000 mcg DAILY TEX Administration Dextrose 0 gm 05/08/25 06:18 Glucose Oral Gel 15 Gm/37.5 Gm Tube PO DIRECTED PRN Dextrose/Water 0 gm 05/08/25 06:18 Dextrose 50%-Water 25 Gm/50 Ml Syr IVP DIRECTED PRN Docusate Sodium 100 mg 05/08/25 06:18 Docusate Sodium 100 Mg Cap PO TID PRN PRN Donepezil HCl 10 mg 05/08/25 20:00 05/10/25 20:32 Donepezil 5 Mg Tab PO 10 mg HS TEX Administration Duloxetine HCl 60 mg 05/08/25 08:30 05/10/25 20:32 Duloxetine 30 Mg Cap PO 60 mg BID TEX Administration Ergocalciferol 50,000 units 05/13/25 08:30 Ergocalciferol 67752 Units Cap PO Fr TEX Furosemide 40 mg 05/09/25 09:10 05/10/25 16:03 Furosemide 40 Mg/4 Ml Vial IVP 40 mg BID@0800,1600 TEX Administration Sodium Chloride 500 mls @ 0 mls/hr 05/09/25 13:37 05/09/25 13:38 Saline 500ml Bag IV 1 mls/hr PRN PRN Administration As Directed Insulin Aspart 0 units 05/08/25 08:00 05/10/25 17:21 Insulin Aspart 300 Units/3 Ml Pen SC 2 units 0800,1200,1700 TEX Administration Protocol Levothyroxine Sodium 25 mcg 05/08/25 07:00 05/11/25 06:31 Levothyroxine 25 Mcg Tab PO 25 mcg 0600 TEX Administration Losartan Potassium 50 mg 05/08/25 08:30 05/10/25 09:30 Losartan 50 Mg Tab PO 50 mg DAILY TEX Administration Magnesium Hydroxide 30 ml 05/08/25 06:18 Milk Of Magnesia 30 Ml Cup PO DAILY PRN PRN Memantine 10 mg 05/08/25 08:30 05/10/25 20:33 Memantine 5 Mg Tab PO 10 mg BID TEX Administration Mirabegron 25 mg 05/08/25 08:30 05/10/25 09:29 Mirabegron 25 Mg Tabcr PO 25 mg DAILY TEX Administration Olopatadine HCl 1 ml 05/08/25 08:30 05/10/25 09:30 Olopatadine 0.1% Ophth [place] 5 Ml Btl OP 1 drp DAILY TEX Administration Polyethylene Glycol 17 gm 05/08/25 06:18 Polyethylene Glycol 3350 17 Gm Packet PO DAILY PRN PRN Constipation Pravastatin Sodium 40 mg 05/08/25 20:00 05/10/25 20:32 Pravastatin 40 Mg Tab PO 40 mg HS TEX Administration Pregabalin 100 mg 05/08/25 08:30 05/10/25 20:32 Pregabalin 100 Mg Cap PO 100 mg TID TEX Administration Rivaroxaban 20 mg 05/08/25 08:30 05/10/25 09:28 Rivaroxaban 10 Mg Tablet PO 20 mg DAILY TEX Administration Ropinirole HCl 0.25 mg 05/08/25 08:30 05/10/25 20:32 Ropinirole 0.25 Mg Tab PO 0.25 mg TID TEX Administration Sodium Chloride 0 ml 05/08/25 06:18 05/10/25 16:03 Normal Saline Flush 10 Ml Syr IVP 40 ml PRN PRN Administration Sodium Chloride 0 ml 05/08/25 08:30 05/10/25 20:33 Normal Saline Flush 10 Ml Syr IVP 10 ml BID TEX Administration Sodium Chloride 0 ml 05/08/25 06:18 Normal Saline 10 Ml Vial IJ DIRECTED PRN Trazodone HCl 100 mg 05/08/25 20:00 05/10/25 20:33 Trazodone 100 Mg Tab PO 100 mg HS TEX Administration he-Dfrov-Geogifbvxl Acetate 400 units 05/08/25 08:30 05/10/25 20:32 Vitamin E 400 Units Cap PO 400 units BID TEX Administration Allergies ibuprofen Allergy (Unknown, Verified 05/08/25 04:35) ITCHING simvastatin Adverse Reaction (Intermediate, Verified 05/08/25 04:35) ? OF NEUROPATHY OF FEET ILENE Inhibitors Adverse Reaction (Unknown, Verified 05/08/25 04:35) COUGH Labs 05/11/25 05:45 05/11/25 05:45 Labs: 05/08/25 01:25 Blood Blood Culture - Preliminary NO GROWTH 72 HOURS 05/08/25 01:12 Blood Blood Culture - Preliminary NO GROWTH 72 HOURS Laboratory Tests Range/Units 05/08/25 05/08/25 05/08/25 00:30 00:45 00:55 WBC (4.4-10.8) 10^3/uL 7.91 RBC (4.36-5.78) 10^6/uL 4.91 Hgb (13.5-17.5) g/dL 14.7 Hct (40.0-50.0) % 50.1 H MCV (80-95) fL 102 H MCH (27.0-33.0) pg 29.9 MCHC (32.0-36.0) % 29.3 L RDW (11.8-14.1) % 14.2 H Plt Count (130-400) 10^3/uL 122 L MPV (8.0-11.0) fL 12.1 H Immature Gran % % 0.5 Neutrophils % % 76.2 Lymphocytes % % 13.0 Monocytes % % 7.3 Eosinophils % % 2.7 Basophils % % 0.3 Nucleated RBC % (0.0-0.3) % 0.0 Absolute Neutrophils (1.2-6.7) 10^3/uL 6.03 Absolute Lymphocytes (1.2-3.4) 10^3/uL 1.03 L Absolute Monocytes (0.1-0.8) 10^3/uL 0.58 Absolute Eosinophils (0.0-0.7) 10^3/uL 0.21 Absolute Basophils (0.0-0.2) 10^3/uL 0.02 PT (9.1-11.1) sec INR (0.9-1.1) D-Dimer (<500) ng/mlFEU ABG Sample Site ABG pH (7.35-7.45) ABG pCO2 (35-45) mmHg ABG pO2 (80-105) mmHg ABG HCO3 (22-26) mmol/L ABG Total CO2 (23-27) mmol/L ABG O2 Saturation (95-98) % ABG Base Excess (-2-3) mmol/L VBG pH (7.31-7.41) 7.22 L Cancelled VBG pCO2 (41-51) mmHg 88 H* Cancelled VBG pO2 mmHg 83 Cancelled VBG HCO3 (23-28) mmol/L 37 H Cancelled VBG Total CO2 (24-29) mmol/L 39 H Cancelled VBG O2 Saturation % 93 Cancelled VBG Base Excess (-2-3) mmol/L 9 H Cancelled VBG Lactate (<or=2.0) mmol/L 1.1 Cancelled Oxygen Liter Flow L Sodium (136-145) mmol/L Potassium (3.5-5.1) mmol/L Chloride (98-107) mmol/L Carbon Dioxide (20.0-31.0) mmol/L Anion Gap (3-11) mmol/L BUN (9-23) mg/dL Creatinine (0.73-1.18) mg/dL Est GFR (CKD-EPI 2020) (mL/min/1.73m2) Glucose (74-106) mg/dL Calcium (8.3-10.6) mg/dL Magnesium (1.6-2.6) mg/dL Total Bilirubin (0.2-1.2) mg/dL AST (<34) U/L ALT (10-49) U/L Alkaline Phosphatase (46-116) U/L Troponin I (<54) ng/L NT-Pro-B Natriuret Pep (<300) pg/mL Total Protein (5.7-8.2) g/dL Albumin (3.2-5.0) g/dL TSH (0.55-4.78) uIU/mL Urine Color (Yellow) Urine Clarity (Clear) Urine pH (5-8) Ur Specific [place] (1.005-1.025) Urine Protein (Neg-Trace) mg/dL Urine Ketones (Negative) mg/dL Urine Blood (Negative) Urine Nitrite (Negative) Urine Bilirubin (Negative) Urine Urobilinogen (Up to 0.2) mg/dL Ur Leukocyte Esterase (Negative) Urine RBC (0-2) HPF Urine WBC (0-5) HPF Ur Epithelial Cells (Negative) HPF Urine Crystals (Negative) HPF Urine Bacteria (Negative) HPF Urine Casts (Negative) LPF Urine Mucus (Negative) Ur Culture Indicated? Urine Glucose (Negative) mg/dL COVID-19 Source SARS-CoV-2 (PCR) (Negative) Influenza Type A (PCR) (Negative) Influenza Type B (PCR) (Negative) RSV (PCR) (Negative) Add-On Test Request Range/Units 05/08/25 05/08/25 05/08/25 01:23 01:25 02:20 WBC (4.4-10.8) 10^3/uL RBC (4.36-5.78) 10^6/uL Hgb (13.5-17.5) g/dL Hct (40.0-50.0) % MCV (80-95) fL MCH (27.0-33.0) pg MCHC (32.0-36.0) % RDW (11.8-14.1) % Plt Count (130-400) 10^3/uL MPV (8.0-11.0) fL Immature Gran % % Neutrophils % % Lymphocytes % % Monocytes % % Eosinophils % % Basophils % % Nucleated RBC % (0.0-0.3) % Absolute Neutrophils (1.2-6.7) 10^3/uL Absolute Lymphocytes (1.2-3.4) 10^3/uL Absolute Monocytes (0.1-0.8) 10^3/uL Absolute Eosinophils (0.0-0.7) 10^3/uL Absolute Basophils (0.0-0.2) 10^3/uL PT (9.1-11.1) sec INR (0.9-1.1) D-Dimer (<500) ng/mlFEU 413 ABG Sample Site ABG pH (7.35-7.45) ABG pCO2 (35-45) mmHg ABG pO2 (80-105) mmHg ABG HCO3 (22-26) mmol/L ABG Total CO2 (23-27) mmol/L ABG O2 Saturation (95-98) % ABG Base Excess (-2-3) mmol/L VBG pH (7.31-7.41) 7.25 L VBG pCO2 (41-51) mmHg 78 H* VBG pO2 mmHg 58 VBG HCO3 (23-28) mmol/L 34 H VBG Total CO2 (24-29) mmol/L 31 H VBG O2 Saturation % 86 VBG Base Excess (-2-3) mmol/L 7 H VBG Lactate (<or=2.0) mmol/L Oxygen Liter Flow L Sodium (136-145) mmol/L 143 Potassium (3.5-5.1) mmol/L 5.2 H Chloride (98-107) mmol/L 104 Carbon Dioxide (20.0-31.0) mmol/L 35.9 H Anion Gap (3-11) mmol/L 3.1 BUN (9-23) mg/dL 37 H Creatinine (0.73-1.18) mg/dL 1.64 H Est GFR (CKD-EPI 2020) (mL/min/1.73m2) 40.99 Glucose (74-106) mg/dL 183 H Calcium (8.3-10.6) mg/dL 8.5 Magnesium (1.6-2.6) mg/dL 2.2 Total Bilirubin (0.2-1.2) mg/dL 0.5 AST (<34) U/L 13 ALT (10-49) U/L 7 L Alkaline Phosphatase (46-116) U/L 101 Troponin I (<54) ng/L 17 15 NT-Pro-B Natriuret Pep (<300) pg/mL 1442 H Total Protein (5.7-8.2) g/dL 7.7 Albumin (3.2-5.0) g/dL 4.5 TSH (0.55-4.78) uIU/mL 2.81 Urine Color (Yellow) Urine Clarity (Clear) Urine pH (5-8) Ur Specific [place] (1.005-1.025) Urine Protein (Neg-Trace) mg/dL Urine Ketones (Negative) mg/dL Urine Blood (Negative) Urine Nitrite (Negative) Urine Bilirubin (Negative) Urine Urobilinogen (Up to 0.2) mg/dL Ur Leukocyte Esterase (Negative) Urine RBC (0-2) HPF Urine WBC (0-5) HPF Ur Epithelial Cells (Negative) HPF Urine Crystals (Negative) HPF Urine Bacteria (Negative) HPF Urine Casts (Negative) LPF Urine Mucus (Negative) Ur Culture Indicated? Urine Glucose (Negative) mg/dL COVID-19 Source Nasopharynx SARS-CoV-2 (PCR) (Negative) Negative Influenza Type A (PCR) (Negative) Negative Influenza Type B (PCR) (Negative) Negative RSV (PCR) (Negative) Negative Add-On Test Request Range/Units 05/08/25 05/08/25 05/08/25 02:39 02:45 03:35 WBC (4.4-10.8) 10^3/uL RBC (4.36-5.78) 10^6/uL Hgb (13.5-17.5) g/dL Hct (40.0-50.0) % MCV (80-95) fL MCH (27.0-33.0) pg MCHC (32.0-36.0) % RDW (11.8-14.1) % Plt Count (130-400) 10^3/uL MPV (8.0-11.0) fL Immature Gran % % Neutrophils % % Lymphocytes % % Monocytes % % Eosinophils % % Basophils % % Nucleated RBC % (0.0-0.3) % Absolute Neutrophils (1.2-6.7) 10^3/uL Absolute Lymphocytes (1.2-3.4) 10^3/uL Absolute Monocytes (0.1-0.8) 10^3/uL Absolute Eosinophils (0.0-0.7) 10^3/uL Absolute Basophils (0.0-0.2) 10^3/uL PT (9.1-11.1) sec INR (0.9-1.1) D-Dimer (<500) ng/mlFEU ABG Sample Site ABG pH (7.35-7.45) ABG pCO2 (35-45) mmHg ABG pO2 (80-105) mmHg ABG HCO3 (22-26) mmol/L ABG Total CO2 (23-27) mmol/L ABG O2 Saturation (95-98) % ABG Base Excess (-2-3) mmol/L VBG pH (7.31-7.41) Cancelled 7.22 L VBG pCO2 (41-51) mmHg Cancelled 83 H* VBG pO2 mmHg Cancelled 34 VBG HCO3 (23-28) mmol/L Cancelled 34 H VBG Total CO2 (24-29) mmol/L Cancelled 32 H VBG O2 Saturation % Cancelled 54 VBG Base Excess (-2-3) mmol/L Cancelled 6 H VBG Lactate (<or=2.0) mmol/L Oxygen Liter Flow L Sodium (136-145) mmol/L Potassium (3.5-5.1) mmol/L 5.0 Chloride (98-107) mmol/L Carbon Dioxide (20.0-31.0) mmol/L Anion Gap (3-11) mmol/L BUN (9-23) mg/dL Creatinine (0.73-1.18) mg/dL Est GFR (CKD-EPI 2020) (mL/min/1.73m2) Glucose (74-106) mg/dL Calcium (8.3-10.6) mg/dL Magnesium (1.6-2.6) mg/dL Total Bilirubin (0.2-1.2) mg/dL AST (<34) U/L ALT (10-49) U/L Alkaline Phosphatase (46-116) U/L Troponin I (<54) ng/L NT-Pro-B Natriuret Pep (<300) pg/mL Total Protein (5.7-8.2) g/dL Albumin (3.2-5.0) g/dL TSH (0.55-4.78) uIU/mL Urine Color (Yellow) Yellow Urine Clarity (Clear) Clear Urine pH (5-8) 5.5 Ur Specific [place] (1.005-1.025) 1.020 Urine Protein (Neg-Trace) mg/dL 30 H Urine Ketones (Negative) mg/dL Negative Urine Blood (Negative) Trace-intact H Urine Nitrite (Negative) Negative Urine Bilirubin (Negative) Negative Urine Urobilinogen (Up to 0.2) mg/dL 0.2 Ur Leukocyte Esterase (Negative) Negative Urine RBC (0-2) HPF 3-5 H Urine WBC (0-5) HPF Negative Ur Epithelial Cells (Negative) HPF Negative Urine Crystals (Negative) HPF Negative Urine Bacteria (Negative) HPF Rare Urine Casts (Negative) LPF Negative Urine Mucus (Negative) Negative Ur Culture Indicated? No Urine Glucose (Negative) mg/dL Negative COVID-19 Source SARS-CoV-2 (PCR) (Negative) Influenza Type A (PCR) (Negative) Influenza Type B (PCR) (Negative) RSV (PCR) (Negative) Add-On Test Request Range/Units 05/08/25 05/08/25 05/08/25 03:45 03:46 04:38 WBC (4.4-10.8) 10^3/uL RBC (4.36-5.78) 10^6/uL Hgb (13.5-17.5) g/dL Hct (40.0-50.0) % MCV (80-95) fL MCH (27.0-33.0) pg MCHC (32.0-36.0) % RDW (11.8-14.1) % Plt Count (130-400) 10^3/uL MPV (8.0-11.0) fL Immature Gran % % Neutrophils % % Lymphocytes % % Monocytes % % Eosinophils % % Basophils % % Nucleated RBC % (0.0-0.3) % Absolute Neutrophils (1.2-6.7) 10^3/uL Absolute Lymphocytes (1.2-3.4) 10^3/uL Absolute Monocytes (0.1-0.8) 10^3/uL Absolute Eosinophils (0.0-0.7) 10^3/uL Absolute Basophils (0.0-0.2) 10^3/uL PT (9.1-11.1) sec INR (0.9-1.1) D-Dimer (<500) ng/mlFEU ABG Sample Site ABG pH (7.35-7.45) ABG pCO2 (35-45) mmHg ABG pO2 (80-105) mmHg ABG HCO3 (22-26) mmol/L ABG Total CO2 (23-27) mmol/L ABG O2 Saturation (95-98) % ABG Base Excess (-2-3) mmol/L VBG pH (7.31-7.41) Cancelled 7.23 L VBG pCO2 (41-51) mmHg Cancelled 88 H* VBG pO2 mmHg Cancelled 28 VBG HCO3 (23-28) mmol/L Cancelled 37 H VBG Total CO2 (24-29) mmol/L Cancelled 34 H VBG O2 Saturation % Cancelled 43 VBG Base Excess (-2-3) mmol/L Cancelled 10 H VBG Lactate (<or=2.0) mmol/L Oxygen Liter Flow L Sodium (136-145) mmol/L Potassium (3.5-5.1) mmol/L Chloride (98-107) mmol/L Carbon Dioxide (20.0-31.0) mmol/L Anion Gap (3-11) mmol/L BUN (9-23) mg/dL Creatinine (0.73-1.18) mg/dL Est GFR (CKD-EPI 2020) (mL/min/1.73m2) Glucose (74-106) mg/dL Calcium (8.3-10.6) mg/dL Magnesium (1.6-2.6) mg/dL Total Bilirubin (0.2-1.2) mg/dL AST (<34) U/L ALT (10-49) U/L Alkaline Phosphatase (46-116) U/L Troponin I (<54) ng/L 17 NT-Pro-B Natriuret Pep (<300) pg/mL Total Protein (5.7-8.2) g/dL Albumin (3.2-5.0) g/dL TSH (0.55-4.78) uIU/mL Urine Color (Yellow) Urine Clarity (Clear) Urine pH (5-8) Ur Specific [place] (1.005-1.025) Urine Protein (Neg-Trace) mg/dL Urine Ketones (Negative) mg/dL Urine Blood (Negative) Urine Nitrite (Negative) Urine Bilirubin (Negative) Urine Urobilinogen (Up to 0.2) mg/dL Ur Leukocyte Esterase (Negative) Urine RBC (0-2) HPF Urine WBC (0-5) HPF Ur Epithelial Cells (Negative) HPF Urine Crystals (Negative) HPF Urine Bacteria (Negative) HPF Urine Casts (Negative) LPF Urine Mucus (Negative) Ur Culture Indicated? Urine Glucose (Negative) mg/dL COVID-19 Source SARS-CoV-2 (PCR) (Negative) Influenza Type A (PCR) (Negative) Influenza Type B (PCR) (Negative) RSV (PCR) (Negative) Add-On Test Request Cancelled Range/Units 05/08/25 05/08/25 05/08/25 04:45 05:45 05:47 WBC (4.4-10.8) 10^3/uL RBC (4.36-5.78) 10^6/uL Hgb (13.5-17.5) g/dL Hct (40.0-50.0) % MCV (80-95) fL MCH (27.0-33.0) pg MCHC (32.0-36.0) % RDW (11.8-14.1) % Plt Count (130-400) 10^3/uL MPV (8.0-11.0) fL Immature Gran % % Neutrophils % % Lymphocytes % % Monocytes % % Eosinophils % % Basophils % % Nucleated RBC % (0.0-0.3) % Absolute Neutrophils (1.2-6.7) 10^3/uL Absolute Lymphocytes (1.2-3.4) 10^3/uL Absolute Monocytes (0.1-0.8) 10^3/uL Absolute Eosinophils (0.0-0.7) 10^3/uL Absolute Basophils (0.0-0.2) 10^3/uL PT (9.1-11.1) sec INR (0.9-1.1) D-Dimer (<500) ng/mlFEU ABG Sample Site ABG pH (7.35-7.45) ABG pCO2 (35-45) mmHg ABG pO2 (80-105) mmHg ABG HCO3 (22-26) mmol/L ABG Total CO2 (23-27) mmol/L ABG O2 Saturation (95-98) % ABG Base Excess (-2-3) mmol/L VBG pH (7.31-7.41) Cancelled Cancelled 7.28 L VBG pCO2 (41-51) mmHg Cancelled Cancelled 80 H* VBG pO2 mmHg Cancelled Cancelled 27 VBG HCO3 (23-28) mmol/L Cancelled Cancelled 38 H VBG Total CO2 (24-29) mmol/L Cancelled Cancelled 35 H VBG O2 Saturation % Cancelled Cancelled 44 VBG Base Excess (-2-3) mmol/L Cancelled Cancelled 11 H VBG Lactate (<or=2.0) mmol/L Oxygen Liter Flow L Sodium (136-145) mmol/L Potassium (3.5-5.1) mmol/L Chloride (98-107) mmol/L Carbon Dioxide (20.0-31.0) mmol/L Anion Gap (3-11) mmol/L BUN (9-23) mg/dL Creatinine (0.73-1.18) mg/dL Est GFR (CKD-EPI 2020) (mL/min/1.73m2) Glucose (74-106) mg/dL Calcium (8.3-10.6) mg/dL Magnesium (1.6-2.6) mg/dL Total Bilirubin (0.2-1.2) mg/dL AST (<34) U/L ALT (10-49) U/L Alkaline Phosphatase (46-116) U/L Troponin I (<54) ng/L NT-Pro-B Natriuret Pep (<300) pg/mL Total Protein (5.7-8.2) g/dL Albumin (3.2-5.0) g/dL TSH (0.55-4.78) uIU/mL Urine Color (Yellow) Urine Clarity (Clear) Urine pH (5-8) Ur Specific [place] (1.005-1.025) Urine Protein (Neg-Trace) mg/dL Urine Ketones (Negative) mg/dL Urine Blood (Negative) Urine Nitrite (Negative) Urine Bilirubin (Negative) Urine Urobilinogen (Up to 0.2) mg/dL Ur Leukocyte Esterase (Negative) Urine RBC (0-2) HPF Urine WBC (0-5) HPF Ur Epithelial Cells (Negative) HPF Urine Crystals (Negative) HPF Urine Bacteria (Negative) HPF Urine Casts (Negative) LPF Urine Mucus (Negative) Ur Culture Indicated? Urine Glucose (Negative) mg/dL COVID-19 Source SARS-CoV-2 (PCR) (Negative) Influenza Type A (PCR) (Negative) Influenza Type B (PCR) (Negative) RSV (PCR) (Negative) Add-On Test Request Range/Units 05/08/25 05/08/25 05/08/25 06:30 06:45 06:57 WBC (4.4-10.8) 10^3/uL RBC (4.36-5.78) 10^6/uL Hgb (13.5-17.5) g/dL Hct (40.0-50.0) % MCV (80-95) fL MCH (27.0-33.0) pg MCHC (32.0-36.0) % RDW (11.8-14.1) % Plt Count (130-400) 10^3/uL MPV (8.0-11.0) fL Immature Gran % % Neutrophils % % Lymphocytes % % Monocytes % % Eosinophils % % Basophils % % Nucleated RBC % (0.0-0.3) % Absolute Neutrophils (1.2-6.7) 10^3/uL Absolute Lymphocytes (1.2-3.4) 10^3/uL Absolute Monocytes (0.1-0.8) 10^3/uL Absolute Eosinophils (0.0-0.7) 10^3/uL Absolute Basophils (0.0-0.2) 10^3/uL PT (9.1-11.1) sec INR (0.9-1.1) D-Dimer (<500) ng/mlFEU ABG Sample Site ABG pH (7.35-7.45) ABG pCO2 (35-45) mmHg ABG pO2 (80-105) mmHg ABG HCO3 (22-26) mmol/L ABG Total CO2 (23-27) mmol/L ABG O2 Saturation (95-98) % ABG Base Excess (-2-3) mmol/L VBG pH (7.31-7.41) Cancelled Cancelled 7.35 VBG pCO2 (41-51) mmHg Cancelled Cancelled 66 H* VBG pO2 mmHg Cancelled Cancelled 43 VBG HCO3 (23-28) mmol/L Cancelled Cancelled 36 H VBG Total CO2 (24-29) mmol/L Cancelled Cancelled 32 H VBG O2 Saturation % Cancelled Cancelled 78 VBG Base Excess (-2-3) mmol/L Cancelled Cancelled 11 H VBG Lactate (<or=2.0) mmol/L Oxygen Liter Flow L Sodium (136-145) mmol/L Potassium (3.5-5.1) mmol/L Chloride (98-107) mmol/L Carbon Dioxide (20.0-31.0) mmol/L Anion Gap (3-11) mmol/L BUN (9-23) mg/dL Creatinine (0.73-1.18) mg/dL Est GFR (CKD-EPI 2020) (mL/min/1.73m2) Glucose (74-106) mg/dL Calcium (8.3-10.6) mg/dL Magnesium (1.6-2.6) mg/dL Total Bilirubin (0.2-1.2) mg/dL AST (<34) U/L ALT (10-49) U/L Alkaline Phosphatase (46-116) U/L Troponin I (<54) ng/L NT-Pro-B Natriuret Pep (<300) pg/mL Total Protein (5.7-8.2) g/dL Albumin (3.2-5.0) g/dL TSH (0.55-4.78) uIU/mL Urine Color (Yellow) Urine Clarity (Clear) Urine pH (5-8) Ur Specific [place] (1.005-1.025) Urine Protein (Neg-Trace) mg/dL Urine Ketones (Negative) mg/dL Urine Blood (Negative) Urine Nitrite (Negative) Urine Bilirubin (Negative) Urine Urobilinogen (Up to 0.2) mg/dL Ur Leukocyte Esterase (Negative) Urine RBC (0-2) HPF Urine WBC (0-5) HPF Ur Epithelial Cells (Negative) HPF Urine Crystals (Negative) HPF Urine Bacteria (Negative) HPF Urine Casts (Negative) LPF Urine Mucus (Negative) Ur Culture Indicated? Urine Glucose (Negative) mg/dL COVID-19 Source SARS-CoV-2 (PCR) (Negative) Influenza Type A (PCR) (Negative) Influenza Type B (PCR) (Negative) RSV (PCR) (Negative) Add-On Test Request Range/Units 05/08/25 05/08/25 05/08/25 07:45 08:45 09:45 WBC (4.4-10.8) 10^3/uL RBC (4.36-5.78) 10^6/uL Hgb (13.5-17.5) g/dL Hct (40.0-50.0) % MCV (80-95) fL MCH (27.0-33.0) pg MCHC (32.0-36.0) % RDW (11.8-14.1) % Plt Count (130-400) 10^3/uL MPV (8.0-11.0) fL Immature Gran % % Neutrophils % % Lymphocytes % % Monocytes % % Eosinophils % % Basophils % % Nucleated RBC % (0.0-0.3) % Absolute Neutrophils (1.2-6.7) 10^3/uL Absolute Lymphocytes (1.2-3.4) 10^3/uL Absolute Monocytes (0.1-0.8) 10^3/uL Absolute Eosinophils (0.0-0.7) 10^3/uL Absolute Basophils (0.0-0.2) 10^3/uL PT (9.1-11.1) sec INR (0.9-1.1) D-Dimer (<500) ng/mlFEU ABG Sample Site ABG pH (7.35-7.45) ABG pCO2 (35-45) mmHg ABG pO2 (80-105) mmHg ABG HCO3 (22-26) mmol/L ABG Total CO2 (23-27) mmol/L ABG O2 Saturation (95-98) % ABG Base Excess (-2-3) mmol/L VBG pH (7.31-7.41) Cancelled Cancelled Cancelled VBG pCO2 (41-51) mmHg Cancelled Cancelled Cancelled VBG pO2 mmHg Cancelled Cancelled Cancelled VBG HCO3 (23-28) mmol/L Cancelled Cancelled Cancelled VBG Total CO2 (24-29) mmol/L Cancelled Cancelled Cancelled VBG O2 Saturation % Cancelled Cancelled Cancelled VBG Base Excess (-2-3) mmol/L Cancelled Cancelled Cancelled VBG Lactate (<or=2.0) mmol/L Oxygen Liter Flow L Sodium (136-145) mmol/L Potassium (3.5-5.1) mmol/L Chloride (98-107) mmol/L Carbon Dioxide (20.0-31.0) mmol/L Anion Gap (3-11) mmol/L BUN (9-23) mg/dL Creatinine (0.73-1.18) mg/dL Est GFR (CKD-EPI 2020) (mL/min/1.73m2) Glucose (74-106) mg/dL Calcium (8.3-10.6) mg/dL Magnesium (1.6-2.6) mg/dL Total Bilirubin (0.2-1.2) mg/dL AST (<34) U/L ALT (10-49) U/L Alkaline Phosphatase (46-116) U/L Troponin I (<54) ng/L NT-Pro-B Natriuret Pep (<300) pg/mL Total Protein (5.7-8.2) g/dL Albumin (3.2-5.0) g/dL TSH (0.55-4.78) uIU/mL Urine Color (Yellow) Urine Clarity (Clear) Urine pH (5-8) Ur Specific [place] (1.005-1.025) Urine Protein (Neg-Trace) mg/dL Urine Ketones (Negative) mg/dL Urine Blood (Negative) Urine Nitrite (Negative) Urine Bilirubin (Negative) Urine Urobilinogen (Up to 0.2) mg/dL Ur Leukocyte Esterase (Negative) Urine RBC (0-2) HPF Urine WBC (0-5) HPF Ur Epithelial Cells (Negative) HPF Urine Crystals (Negative) HPF Urine Bacteria (Negative) HPF Urine Casts (Negative) LPF Urine Mucus (Negative) Ur Culture Indicated? Urine Glucose (Negative) mg/dL COVID-19 Source SARS-CoV-2 (PCR) (Negative) Influenza Type A (PCR) (Negative) Influenza Type B (PCR) (Negative) RSV (PCR) (Negative) Add-On Test Request Range/Units 05/08/25 05/08/25 05/08/25 10:45 10:47 11:45 WBC (4.4-10.8) 10^3/uL RBC (4.36-5.78) 10^6/uL Hgb (13.5-17.5) g/dL Hct (40.0-50.0) % MCV (80-95) fL MCH (27.0-33.0) pg MCHC (32.0-36.0) % RDW (11.8-14.1) % Plt Count (130-400) 10^3/uL MPV (8.0-11.0) fL Immature Gran % % Neutrophils % % Lymphocytes % % Monocytes % % Eosinophils % % Basophils % % Nucleated RBC % (0.0-0.3) % Absolute Neutrophils (1.2-6.7) 10^3/uL Absolute Lymphocytes (1.2-3.4) 10^3/uL Absolute Monocytes (0.1-0.8) 10^3/uL Absolute Eosinophils (0.0-0.7) 10^3/uL Absolute Basophils (0.0-0.2) 10^3/uL PT (9.1-11.1) sec 17.1 H INR (0.9-1.1) 1.8 H D-Dimer (<500) ng/mlFEU ABG Sample Site ABG pH (7.35-7.45) ABG pCO2 (35-45) mmHg ABG pO2 (80-105) mmHg ABG HCO3 (22-26) mmol/L ABG Total CO2 (23-27) mmol/L ABG O2 Saturation (95-98) % ABG Base Excess (-2-3) mmol/L VBG pH (7.31-7.41) Cancelled 7.33 Cancelled VBG pCO2 (41-51) mmHg Cancelled 68 H* Cancelled VBG pO2 mmHg Cancelled 36 Cancelled VBG HCO3 (23-28) mmol/L Cancelled 36 H Cancelled VBG Total CO2 (24-29) mmol/L Cancelled 32 H Cancelled VBG O2 Saturation % Cancelled 66 Cancelled VBG Base Excess (-2-3) mmol/L Cancelled 10 H Cancelled VBG Lactate (<or=2.0) mmol/L Oxygen Liter Flow L Sodium (136-145) mmol/L Potassium (3.5-5.1) mmol/L Chloride (98-107) mmol/L Carbon Dioxide (20.0-31.0) mmol/L Anion Gap (3-11) mmol/L BUN (9-23) mg/dL Creatinine (0.73-1.18) mg/dL Est GFR (CKD-EPI 2020) (mL/min/1.73m2) Glucose (74-106) mg/dL Calcium (8.3-10.6) mg/dL Magnesium (1.6-2.6) mg/dL Total Bilirubin (0.2-1.2) mg/dL AST (<34) U/L ALT (10-49) U/L Alkaline Phosphatase (46-116) U/L Troponin I (<54) ng/L NT-Pro-B Natriuret Pep (<300) pg/mL Total Protein (5.7-8.2) g/dL Albumin (3.2-5.0) g/dL TSH (0.55-4.78) uIU/mL Urine Color (Yellow) Urine Clarity (Clear) Urine pH (5-8) Ur Specific [place] (1.005-1.025) Urine Protein (Neg-Trace) mg/dL Urine Ketones (Negative) mg/dL Urine Blood (Negative) Urine Nitrite (Negative) Urine Bilirubin (Negative) Urine Urobilinogen (Up to 0.2) mg/dL Ur Leukocyte Esterase (Negative) Urine RBC (0-2) HPF Urine WBC (0-5) HPF Ur Epithelial Cells (Negative) HPF Urine Crystals (Negative) HPF Urine Bacteria (Negative) HPF Urine Casts (Negative) LPF Urine Mucus (Negative) Ur Culture Indicated? Urine Glucose (Negative) mg/dL COVID-19 Source SARS-CoV-2 (PCR) (Negative) Influenza Type A (PCR) (Negative) Influenza Type B (PCR) (Negative) RSV (PCR) (Negative) Add-On Test Request Range/Units 05/08/25 05/08/25 05/08/25 12:45 13:45 14:45 WBC (4.4-10.8) 10^3/uL RBC (4.36-5.78) 10^6/uL Hgb (13.5-17.5) g/dL Hct (40.0-50.0) % MCV (80-95) fL MCH (27.0-33.0) pg MCHC (32.0-36.0) % RDW (11.8-14.1) % Plt Count (130-400) 10^3/uL MPV (8.0-11.0) fL Immature Gran % % Neutrophils % % Lymphocytes % % Monocytes % % Eosinophils % % Basophils % % Nucleated RBC % (0.0-0.3) % Absolute Neutrophils (1.2-6.7) 10^3/uL Absolute Lymphocytes (1.2-3.4) 10^3/uL Absolute Monocytes (0.1-0.8) 10^3/uL Absolute Eosinophils (0.0-0.7) 10^3/uL Absolute Basophils (0.0-0.2) 10^3/uL PT (9.1-11.1) sec INR (0.9-1.1) D-Dimer (<500) ng/mlFEU ABG Sample Site ABG pH (7.35-7.45) ABG pCO2 (35-45) mmHg ABG pO2 (80-105) mmHg ABG HCO3 (22-26) mmol/L ABG Total CO2 (23-27) mmol/L ABG O2 Saturation (95-98) % ABG Base Excess (-2-3) mmol/L VBG pH (7.31-7.41) Cancelled Cancelled Cancelled VBG pCO2 (41-51) mmHg Cancelled Cancelled Cancelled VBG pO2 mmHg Cancelled Cancelled Cancelled VBG HCO3 (23-28) mmol/L Cancelled Cancelled Cancelled VBG Total CO2 (24-29) mmol/L Cancelled Cancelled Cancelled VBG O2 Saturation % Cancelled Cancelled Cancelled VBG Base Excess (-2-3) mmol/L Cancelled Cancelled Cancelled VBG Lactate (<or=2.0) mmol/L Oxygen Liter Flow L Sodium (136-145) mmol/L Potassium (3.5-5.1) mmol/L Chloride (98-107) mmol/L Carbon Dioxide (20.0-31.0) mmol/L Anion Gap (3-11) mmol/L BUN (9-23) mg/dL Creatinine (0.73-1.18) mg/dL Est GFR (CKD-EPI 2020) (mL/min/1.73m2) Glucose (74-106) mg/dL Calcium (8.3-10.6) mg/dL Magnesium (1.6-2.6) mg/dL Total Bilirubin (0.2-1.2) mg/dL AST (<34) U/L ALT (10-49) U/L Alkaline Phosphatase (46-116) U/L Troponin I (<54) ng/L NT-Pro-B Natriuret Pep (<300) pg/mL Total Protein (5.7-8.2) g/dL Albumin (3.2-5.0) g/dL TSH (0.55-4.78) uIU/mL Urine Color (Yellow) Urine Clarity (Clear) Urine pH (5-8) Ur Specific [place] (1.005-1.025) Urine Protein (Neg-Trace) mg/dL Urine Ketones (Negative) mg/dL Urine Blood (Negative) Urine Nitrite (Negative) Urine Bilirubin (Negative) Urine Urobilinogen (Up to 0.2) mg/dL Ur Leukocyte Esterase (Negative) Urine RBC (0-2) HPF Urine WBC (0-5) HPF Ur Epithelial Cells (Negative) HPF Urine Crystals (Negative) HPF Urine Bacteria (Negative) HPF Urine Casts (Negative) LPF Urine Mucus (Negative) Ur Culture Indicated? Urine Glucose (Negative) mg/dL COVID-19 Source SARS-CoV-2 (PCR) (Negative) Influenza Type A (PCR) (Negative) Influenza Type B (PCR) (Negative) RSV (PCR) (Negative) Add-On Test Request Range/Units 05/08/25 05/08/25 05/08/25 14:59 15:45 16:45 WBC (4.4-10.8) 10^3/uL RBC (4.36-5.78) 10^6/uL Hgb (13.5-17.5) g/dL Hct (40.0-50.0) % MCV (80-95) fL MCH (27.0-33.0) pg MCHC (32.0-36.0) % RDW (11.8-14.1) % Plt Count (130-400) 10^3/uL MPV (8.0-11.0) fL Immature Gran % % Neutrophils % % Lymphocytes % % Monocytes % % Eosinophils % % Basophils % % Nucleated RBC % (0.0-0.3) % Absolute Neutrophils (1.2-6.7) 10^3/uL Absolute Lymphocytes (1.2-3.4) 10^3/uL Absolute Monocytes (0.1-0.8) 10^3/uL Absolute Eosinophils (0.0-0.7) 10^3/uL Absolute Basophils (0.0-0.2) 10^3/uL PT (9.1-11.1) sec INR (0.9-1.1) D-Dimer (<500) ng/mlFEU ABG Sample Site ABG pH (7.35-7.45) ABG pCO2 (35-45) mmHg ABG pO2 (80-105) mmHg ABG HCO3 (22-26) mmol/L ABG Total CO2 (23-27) mmol/L ABG O2 Saturation (95-98) % ABG Base Excess (-2-3) mmol/L VBG pH (7.31-7.41) 7.27 L Cancelled Cancelled VBG pCO2 (41-51) mmHg 79 H* Cancelled Cancelled VBG pO2 mmHg 38 Cancelled Cancelled VBG HCO3 (23-28) mmol/L 36 H Cancelled Cancelled VBG Total CO2 (24-29) mmol/L 33 H Cancelled Cancelled VBG O2 Saturation % 66 Cancelled Cancelled VBG Base Excess (-2-3) mmol/L 10 H Cancelled Cancelled VBG Lactate (<or=2.0) mmol/L Oxygen Liter Flow L Sodium (136-145) mmol/L Potassium (3.5-5.1) mmol/L Chloride (98-107) mmol/L Carbon Dioxide (20.0-31.0) mmol/L Anion Gap (3-11) mmol/L BUN (9-23) mg/dL Creatinine (0.73-1.18) mg/dL Est GFR (CKD-EPI 2020) (mL/min/1.73m2) Glucose (74-106) mg/dL Calcium (8.3-10.6) mg/dL Magnesium (1.6-2.6) mg/dL Total Bilirubin (0.2-1.2) mg/dL AST (<34) U/L ALT (10-49) U/L Alkaline Phosphatase (46-116) U/L Troponin I (<54) ng/L NT-Pro-B Natriuret Pep (<300) pg/mL Total Protein (5.7-8.2) g/dL Albumin (3.2-5.0) g/dL TSH (0.55-4.78) uIU/mL Urine Color (Yellow) Urine Clarity (Clear) Urine pH (5-8) Ur Specific [place] (1.005-1.025) Urine Protein (Neg-Trace) mg/dL Urine Ketones (Negative) mg/dL Urine Blood (Negative) Urine Nitrite (Negative) Urine Bilirubin (Negative) Urine Urobilinogen (Up to 0.2) mg/dL Ur Leukocyte Esterase (Negative) Urine RBC (0-2) HPF Urine WBC (0-5) HPF Ur Epithelial Cells (Negative) HPF Urine Crystals (Negative) HPF Urine Bacteria (Negative) HPF Urine Casts (Negative) LPF Urine Mucus (Negative) Ur Culture Indicated? Urine Glucose (Negative) mg/dL COVID-19 Source SARS-CoV-2 (PCR) (Negative) Influenza Type A (PCR) (Negative) Influenza Type B (PCR) (Negative) RSV (PCR) (Negative) Add-On Test Request Range/Units 05/08/25 05/08/25 05/08/25 17:45 18:45 19:45 WBC (4.4-10.8) 10^3/uL RBC (4.36-5.78) 10^6/uL Hgb (13.5-17.5) g/dL Hct (40.0-50.0) % MCV (80-95) fL MCH (27.0-33.0) pg MCHC (32.0-36.0) % RDW (11.8-14.1) % Plt Count (130-400) 10^3/uL MPV (8.0-11.0) fL Immature Gran % % Neutrophils % % Lymphocytes % % Monocytes % % Eosinophils % % Basophils % % Nucleated RBC % (0.0-0.3) % Absolute Neutrophils (1.2-6.7) 10^3/uL Absolute Lymphocytes (1.2-3.4) 10^3/uL Absolute Monocytes (0.1-0.8) 10^3/uL Absolute Eosinophils (0.0-0.7) 10^3/uL Absolute Basophils (0.0-0.2) 10^3/uL PT (9.1-11.1) sec INR (0.9-1.1) D-Dimer (<500) ng/mlFEU ABG Sample Site ABG pH (7.35-7.45) ABG pCO2 (35-45) mmHg ABG pO2 (80-105) mmHg ABG HCO3 (22-26) mmol/L ABG Total CO2 (23-27) mmol/L ABG O2 Saturation (95-98) % ABG Base Excess (-2-3) mmol/L VBG pH (7.31-7.41) Cancelled Cancelled Cancelled VBG pCO2 (41-51) mmHg Cancelled Cancelled Cancelled VBG pO2 mmHg Cancelled Cancelled Cancelled VBG HCO3 (23-28) mmol/L Cancelled Cancelled Cancelled VBG Total CO2 (24-29) mmol/L Cancelled Cancelled Cancelled VBG O2 Saturation % Cancelled Cancelled Cancelled VBG Base Excess (-2-3) mmol/L Cancelled Cancelled Cancelled VBG Lactate (<or=2.0) mmol/L Oxygen Liter Flow L Sodium (136-145) mmol/L Potassium (3.5-5.1) mmol/L Chloride (98-107) mmol/L Carbon Dioxide (20.0-31.0) mmol/L Anion Gap (3-11) mmol/L BUN (9-23) mg/dL Creatinine (0.73-1.18) mg/dL Est GFR (CKD-EPI 2020) (mL/min/1.73m2) Glucose (74-106) mg/dL Calcium (8.3-10.6) mg/dL Magnesium (1.6-2.6) mg/dL Total Bilirubin (0.2-1.2) mg/dL AST (<34) U/L ALT (10-49) U/L Alkaline Phosphatase (46-116) U/L Troponin I (<54) ng/L NT-Pro-B Natriuret Pep (<300) pg/mL Total Protein (5.7-8.2) g/dL Albumin (3.2-5.0) g/dL TSH (0.55-4.78) uIU/mL Urine Color (Yellow) Urine Clarity (Clear) Urine pH (5-8) Ur Specific [place] (1.005-1.025) Urine Protein (Neg-Trace) mg/dL Urine Ketones (Negative) mg/dL Urine Blood (Negative) Urine Nitrite (Negative) Urine Bilirubin (Negative) Urine Urobilinogen (Up to 0.2) mg/dL Ur Leukocyte Esterase (Negative) Urine RBC (0-2) HPF Urine WBC (0-5) HPF Ur Epithelial Cells (Negative) HPF Urine Crystals (Negative) HPF Urine Bacteria (Negative) HPF Urine Casts (Negative) LPF Urine Mucus (Negative) Ur Culture Indicated? Urine Glucose (Negative) mg/dL COVID-19 Source SARS-CoV-2 (PCR) (Negative) Influenza Type A (PCR) (Negative) Influenza Type B (PCR) (Negative) RSV (PCR) (Negative) Add-On Test Request Range/Units 05/08/25 05/08/25 05/08/25 20:45 21:45 22:40 WBC (4.4-10.8) 10^3/uL RBC (4.36-5.78) 10^6/uL Hgb (13.5-17.5) g/dL Hct (40.0-50.0) % MCV (80-95) fL MCH (27.0-33.0) pg MCHC (32.0-36.0) % RDW (11.8-14.1) % Plt Count (130-400) 10^3/uL MPV (8.0-11.0) fL Immature Gran % % Neutrophils % % Lymphocytes % % Monocytes % % Eosinophils % % Basophils % % Nucleated RBC % (0.0-0.3) % Absolute Neutrophils (1.2-6.7) 10^3/uL Absolute Lymphocytes (1.2-3.4) 10^3/uL Absolute Monocytes (0.1-0.8) 10^3/uL Absolute Eosinophils (0.0-0.7) 10^3/uL Absolute Basophils (0.0-0.2) 10^3/uL PT (9.1-11.1) sec INR (0.9-1.1) D-Dimer (<500) ng/mlFEU ABG Sample Site ABG pH (7.35-7.45) ABG pCO2 (35-45) mmHg ABG pO2 (80-105) mmHg ABG HCO3 (22-26) mmol/L ABG Total CO2 (23-27) mmol/L ABG O2 Saturation (95-98) % ABG Base Excess (-2-3) mmol/L VBG pH (7.31-7.41) Cancelled Cancelled 7.39 VBG pCO2 (41-51) mmHg Cancelled Cancelled 55 H VBG pO2 mmHg Cancelled Cancelled 40 VBG HCO3 (23-28) mmol/L Cancelled Cancelled 33 H VBG Total CO2 (24-29) mmol/L Cancelled Cancelled 30 H VBG O2 Saturation % Cancelled Cancelled 79 VBG Base Excess (-2-3) mmol/L Cancelled Cancelled 8 H VBG Lactate (<or=2.0) mmol/L Oxygen Liter Flow L Sodium (136-145) mmol/L Potassium (3.5-5.1) mmol/L Chloride (98-107) mmol/L Carbon Dioxide (20.0-31.0) mmol/L Anion Gap (3-11) mmol/L BUN (9-23) mg/dL Creatinine (0.73-1.18) mg/dL Est GFR (CKD-EPI 2020) (mL/min/1.73m2) Glucose (74-106) mg/dL Calcium (8.3-10.6) mg/dL Magnesium (1.6-2.6) mg/dL Total Bilirubin (0.2-1.2) mg/dL AST (<34) U/L ALT (10-49) U/L Alkaline Phosphatase (46-116) U/L Troponin I (<54) ng/L NT-Pro-B Natriuret Pep (<300) pg/mL Total Protein (5.7-8.2) g/dL Albumin (3.2-5.0) g/dL TSH (0.55-4.78) uIU/mL Urine Color (Yellow) Urine Clarity (Clear) Urine pH (5-8) Ur Specific [place] (1.005-1.025) Urine Protein (Neg-Trace) mg/dL Urine Ketones (Negative) mg/dL Urine Blood (Negative) Urine Nitrite (Negative) Urine Bilirubin (Negative) Urine Urobilinogen (Up to 0.2) mg/dL Ur Leukocyte Esterase (Negative) Urine RBC (0-2) HPF Urine WBC (0-5) HPF Ur Epithelial Cells (Negative) HPF Urine Crystals (Negative) HPF Urine Bacteria (Negative) HPF Urine Casts (Negative) LPF Urine Mucus (Negative) Ur Culture Indicated? Urine Glucose (Negative) mg/dL COVID-19 Source SARS-CoV-2 (PCR) (Negative) Influenza Type A (PCR) (Negative) Influenza Type B (PCR) (Negative) RSV (PCR) (Negative) Add-On Test Request Range/Units 05/08/25 05/08/25 05/09/25 22:45 23:45 05:40 WBC (4.4-10.8) 10^3/uL 8.17 RBC (4.36-5.78) 10^6/uL 4.67 Hgb (13.5-17.5) g/dL 14.3 Hct (40.0-50.0) % 47.6 MCV (80-95) fL 102 H MCH (27.0-33.0) pg 30.6 MCHC (32.0-36.0) % 30.0 L RDW (11.8-14.1) % 14.1 Plt Count (130-400) 10^3/uL 106 L MPV (8.0-11.0) fL 11.5 H Immature Gran % % Neutrophils % % Lymphocytes % % Monocytes % % Eosinophils % % Basophils % % Nucleated RBC % (0.0-0.3) % Absolute Neutrophils (1.2-6.7) 10^3/uL Absolute Lymphocytes (1.2-3.4) 10^3/uL Absolute Monocytes (0.1-0.8) 10^3/uL Absolute Eosinophils (0.0-0.7) 10^3/uL Absolute Basophils (0.0-0.2) 10^3/uL PT (9.1-11.1) sec INR (0.9-1.1) D-Dimer (<500) ng/mlFEU ABG Sample Site ABG pH (7.35-7.45) ABG pCO2 (35-45) mmHg ABG pO2 (80-105) mmHg ABG HCO3 (22-26) mmol/L ABG Total CO2 (23-27) mmol/L ABG O2 Saturation (95-98) % ABG Base Excess (-2-3) mmol/L VBG pH (7.31-7.41) Cancelled Cancelled VBG pCO2 (41-51) mmHg Cancelled Cancelled VBG pO2 mmHg Cancelled Cancelled VBG HCO3 (23-28) mmol/L Cancelled Cancelled VBG Total CO2 (24-29) mmol/L Cancelled Cancelled VBG O2 Saturation % Cancelled Cancelled VBG Base Excess (-2-3) mmol/L Cancelled Cancelled VBG Lactate (<or=2.0) mmol/L Oxygen Liter Flow L Sodium (136-145) mmol/L 140 Potassium (3.5-5.1) mmol/L 4.5 Chloride (98-107) mmol/L 97 L Carbon Dioxide (20.0-31.0) mmol/L 38.0 H Anion Gap (3-11) mmol/L 4.7 BUN (9-23) mg/dL 37 H Creatinine (0.73-1.18) mg/dL 1.37 H Est GFR (CKD-EPI 2020) (mL/min/1.73m2) 50.44 Glucose (74-106) mg/dL 117 H Calcium (8.3-10.6) mg/dL 8.0 L Magnesium (1.6-2.6) mg/dL 1.9 Total Bilirubin (0.2-1.2) mg/dL 0.6 AST (<34) U/L 18 ALT (10-49) U/L < 7 L Alkaline Phosphatase (46-116) U/L 82 Troponin I (<54) ng/L NT-Pro-B Natriuret Pep (<300) pg/mL Total Protein (5.7-8.2) g/dL 6.5 Albumin (3.2-5.0) g/dL 3.8 TSH (0.55-4.78) uIU/mL Urine Color (Yellow) Urine Clarity (Clear) Urine pH (5-8) Ur Specific [place] (1.005-1.025) Urine Protein (Neg-Trace) mg/dL Urine Ketones (Negative) mg/dL Urine Blood (Negative) Urine Nitrite (Negative) Urine Bilirubin (Negative) Urine Urobilinogen (Up to 0.2) mg/dL Ur Leukocyte Esterase (Negative) Urine RBC (0-2) HPF Urine WBC (0-5) HPF Ur Epithelial Cells (Negative) HPF Urine Crystals (Negative) HPF Urine Bacteria (Negative) HPF Urine Casts (Negative) LPF Urine Mucus (Negative) Ur Culture Indicated? Urine Glucose (Negative) mg/dL COVID-19 Source SARS-CoV-2 (PCR) (Negative) Influenza Type A (PCR) (Negative) Influenza Type B (PCR) (Negative) RSV (PCR) (Negative) Add-On Test Request Range/Units 05/09/25 05/09/25 05/10/25 07:53 08:52 05:20 WBC (4.4-10.8) 10^3/uL 8.59 RBC (4.36-5.78) 10^6/uL 4.54 Hgb (13.5-17.5) g/dL 13.6 Hct (40.0-50.0) % 44.6 MCV (80-95) fL 98 H D MCH (27.0-33.0) pg 30.0 MCHC (32.0-36.0) % 30.5 L RDW (11.8-14.1) % 13.8 Plt Count (130-400) 10^3/uL 91 L MPV (8.0-11.0) fL 12.4 H Immature Gran % % Neutrophils % % Lymphocytes % % Monocytes % % Eosinophils % % Basophils % % Nucleated RBC % (0.0-0.3) % Absolute Neutrophils (1.2-6.7) 10^3/uL Absolute Lymphocytes (1.2-3.4) 10^3/uL Absolute Monocytes (0.1-0.8) 10^3/uL Absolute Eosinophils (0.0-0.7) 10^3/uL Absolute Basophils (0.0-0.2) 10^3/uL PT (9.1-11.1) sec INR (0.9-1.1) D-Dimer (<500) ng/mlFEU ABG Sample Site Right Radial ABG pH (7.35-7.45) 7.31 L ABG pCO2 (35-45) mmHg 72 H* ABG pO2 (80-105) mmHg 62 L ABG HCO3 (22-26) mmol/L 37 H ABG Total CO2 (23-27) mmol/L 33 H ABG O2 Saturation (95-98) % 92 L ABG Base Excess (-2-3) mmol/L 10 H VBG pH (7.31-7.41) 7.24 L VBG pCO2 (41-51) mmHg 92 H* VBG pO2 mmHg 24 VBG HCO3 (23-28) mmol/L 39 H VBG Total CO2 (24-29) mmol/L 36 H VBG O2 Saturation % 35 VBG Base Excess (-2-3) mmol/L 12 H VBG Lactate (<or=2.0) mmol/L Oxygen Liter Flow L 4 Sodium (136-145) mmol/L 138 Potassium (3.5-5.1) mmol/L 4.4 Chloride (98-107) mmol/L 96 L Carbon Dioxide (20.0-31.0) mmol/L 35.5 H Anion Gap (3-11) mmol/L 6.6 BUN (9-23) mg/dL 39 H Creatinine (0.73-1.18) mg/dL 1.27 H Est GFR (CKD-EPI 2020) (mL/min/1.73m2) 55.05 Glucose (74-106) mg/dL 110 H Calcium (8.3-10.6) mg/dL 8.8 Magnesium (1.6-2.6) mg/dL 1.9 Total Bilirubin (0.2-1.2) mg/dL 0.7 AST (<34) U/L 19 ALT (10-49) U/L < 7 L Alkaline Phosphatase (46-116) U/L 86 Troponin I (<54) ng/L NT-Pro-B Natriuret Pep (<300) pg/mL Total Protein (5.7-8.2) g/dL 6.4 Albumin (3.2-5.0) g/dL 3.9 TSH (0.55-4.78) uIU/mL Urine Color (Yellow) Urine Clarity (Clear) Urine pH (5-8) Ur Specific [place] (1.005-1.025) Urine Protein (Neg-Trace) mg/dL Urine Ketones (Negative) mg/dL Urine Blood (Negative) Urine Nitrite (Negative) Urine Bilirubin (Negative) Urine Urobilinogen (Up to 0.2) mg/dL Ur Leukocyte Esterase (Negative) Urine RBC (0-2) HPF Urine WBC (0-5) HPF Ur Epithelial Cells (Negative) HPF Urine Crystals (Negative) HPF Urine Bacteria (Negative) HPF Urine Casts (Negative) LPF Urine Mucus (Negative) Ur Culture Indicated? Urine Glucose (Negative) mg/dL COVID-19 Source SARS-CoV-2 (PCR) (Negative) Influenza Type A (PCR) (Negative) Influenza Type B (PCR) (Negative) RSV (PCR) (Negative) Add-On Test Request Imaging Chest x-ray: report reviewed and image reviewed
[2025-05-11 07:18] LABS: HCT 43.3 % (40.0-50.0); HGB 13.4 g/dL (13.5-17.5); MCH 30.2 pg (27.0-33.0); MCHC 30.9 % (32.0-36.0); MCV 98 fL (80-95); MPV 12.0 fL (8.0-11.0); Platelet Count 102 10^3/uL (130-400); RBC 4.44 10^6/uL (4.36-5.78); RDW 14.0 % (11.8-14.1); RDW-SD 50.4 fL; WBC 7.81 10^3/uL (4.4-10.8)
[2025-05-11 07:52] LABS: ALT 9 U/L (10-49); AST 26 U/L (<34); Albumin 3.9 g/dL (3.2-5.0); Alkaline Phosphatase 80 U/L (46-116); Anion Gap 4.8 mmol/L (3-11); BUN 34 mg/dL (9-23); Bilirubin, Total 0.7 mg/dL (0.2-1.2); CO2 36.7 mmol/L (20.0-31.0); Calcium 8.8 mg/dL (8.3-10.6); Chloride 96 mmol/L (98-107); Glucose 117 mg/dL (74-106); Potassium 4.6 mmol/L (3.5-5.1); Sodium 138 mmol/L (136-145); Total Protein 6.7 g/dL (5.7-8.2)
[2025-05-11 07:55] LABS: Magnesium 1.8 mg/dL (1.6-2.6)
[2025-05-11] MEDS: Furosemide 40 MG/4 ML VIAL IVP ×2 (08:54→16:11)
[2025-05-11] MEDS: Refresh PLUS Eye Drops 0.4ml 1 EACH OP ×3 (08:54→21:11)
[2025-05-11] MEDS: Normal Saline Flush 10 ML SYR IVP ×2 (08:54→20:56)
[2025-05-11] MEDS: DULoxetine 30 MG CAP 60 MG PO ×2 (08:55→20:54)
[2025-05-11] MEDS: Azithromycin 250 MG TAB 500 MG PO (08:55)
[2025-05-11] MEDS: Pregabalin 100 MG CAP PO ×3 (08:55→20:55)
[2025-05-11] MEDS: rOPINIRole 0.25 MG TAB PO ×3 (08:55→21:11)
[2025-05-11] MEDS: Memantine 5 MG TAB 10 MG PO ×2 (08:55→20:56)
[2025-05-11] MEDS: Mirabegron 25 MG TABCR PO (08:55)
[2025-05-11] MEDS: Rivaroxaban 10 MG TABLET 20 MG PO (08:55)
[2025-05-11] MEDS: Losartan 50 MG TAB PO (08:56)
[2025-05-11] MEDS: Cyanocobalamin 500 MCG TAB 1000 MCG PO (08:56)
[2025-05-11] MEDS: Olopatadine 0.1% OPHTH SOL 5 ML BTL 1 ML OP (08:57)
[2025-05-11] MEDS: Vitamin E 400 UNITS CAP PO ×2 (08:57→21:11)
[2025-05-11] MEDS: Insulin Aspart 300 UNITS/3 ML PEN SC (12:04)
--- NOTE | 2025-05-11 12:56 | OT.INIE ---
Occupational Therapy Notes Inpatient Occupational Therapy Evaluation Date: 05/11/25 Referring Doctor:Alli Mojica OT Orders: Non urgent Precautions: Fall, Standard, DNR/DNI PATIENT PROFILE/ADMITTING DIAGNOSIS: Pt is a 74 year old male who presented to the ED with a clinical impression of Acute hypercapnic respiratory failure, Acute hypoxic respiratory failure, Congestive heart failure, Hyperkalemia, Altered mental status. He was admitted to the ICU from the ED with the following dx of acute respiratory failure with hypoxic and hypercabia, CHF, CONCHITA, Hyperkalemia, pneumonia, Afib, essential HTN, Alzheimiers, DM, Hypothyroidsm, PLMD ( periodic limb movement disorder), and depression. Past Medical History: All Active Problems CONCHITA (acute kidney injury) (Acute) Depression (Chronic) Acute respiratory failure with hypoxia and hypercarbia (Acute) Altered mental status (Acute) Hyperkalemia (Acute) Congestive heart failure (Acute) Acute hypoxic respiratory failure (Acute) Acute hypercapnic respiratory failure (Acute) Urinary incontinence (Acute) Alzheimer dementia (Chronic) Urinary incontinence, urge (Acute) Gait instability (Acute) PLMD (periodic limb movement disorder) (Chronic) Advanced care planning/counseling discussion (Acute) Goals of care, counseling/discussion (Acute) Gait abnormality (Acute) Pneumonia (Acute) Hypothyroidism (Chronic) Pain in soft tissues of limb (Acute) Other hammer toe (acquired) (Acute) Corns and callosities (Acute) Acute cognitive decline (Acute) Cold sensation of skin (Acute) Neuropathy (Chronic) Chronic pain syndrome (Chronic) No longer taking MS and no longer on contract. 12/10/16 RENEWAL OF CONTROLLED SUBSTANCE AGREEMENT 04/2021-updated agreement/VPMS query and drug screen Sexual function problem (Acute) Polyp of colon (Acute 06/25/08) Peripheral neuralgia (Acute) of feet; idiopathic; multiple neuro w/u's; 2 brothers and mother with similar issue...likely genetic origin multiple neuro consults. See 2012 Dr Garcia. Obesity (Acute) Complete edentulism, unspecified (Acute) Anticoagulated on warfarin (Acute) A-fib; goal 2-3 Hemorrhoids (Acute) Open wound of right heel (Acute) Followed by [facility] Medical History Palliative care encounter Cognitive decline Supratherapeutic INR Anxiety Atrial fibrillation beginning in 2002, it was initially paroxysmal and cardioverted. It is now chronic. On warfarin Chronic obstructive lung disease Hyperlipidemia Essential hypertension (03/16/13) Diabetes mellitus Surgical History Hx of cataract surgery Hx of colonoscopy Repair of inguinal hernia (~1975) rightCARDIOVERSION (~2002) Social History/Home Situation: Pt reports that he resides at the [facility]. He notes that he is (I) with his ADL routines and requires (A) from time to time. Equipment owned/DME: All DME needs met by [facility] SUBJECTIVE: Pt was sitting in chair when OT arrived. He is agreeable to OT consult and notes that he is feeling better. OBJECTIVE: General Observation: Pleasant, Roblero in place, telemetry, IV in the (R) UE, BP cuff on Upper arm. Mental Status: A&Ox3 Pain: no c/o pain during OT consult. ROM: RUE AROM WFL L UE AROM WFL STRENGTH: RUE 4/5 throughout LUE 4/5 throughout SENSATION: Intact FUNCTIONAL MOBILITY/ADLS: BATHING Pt denies and notes that he washed with nursing. The only (A) needed was with his back. Otherwise he notes he was (I) DRESSING seated in chair, min vc Dressing UE (I) with donning and doffing [facility] gown Dressing LE with leg brought to the other knee pt is (I) with don and doffing socks with increased performance time. Chair is higher up which pt is having difficulty with, closer to the floor he is able to perform with ideal GROOMING With set up (A) due to wires and monitors on his body he is (I) with brushing teeth TOILETING Roblero in place, pt has utilized the commode. He notes that nursing helped with toileting hygiene but only because of how small the hole is on the commode. EATING seated in chair, pt utilizes bigger handled silverware d/t neuropathy. He is (I) with his eating routines and functionally no issues with chewing or swallowing his food. BALANCE: Static sitting normal Dynamic Sitting Normal SPECIAL TESTS: Daily Activity Limitations Standardized Measure [facility] AM -PAC ?6 clicks? Daily Activity Inpatient Short Form: Raw score: 23 Standardized score: 51.12 CMS score: 15.86% INFORMED CONSENT/EDUCATION: Pt instructed in purpose of OT Consult and plan of care. ASSESSMENT: Patient is a 74-year-old male referred to occupational therapy services with diagnosis of Acute hypercapnic respiratory failure, Acute hypoxic respiratory failure, Congestive heart failure, Hyperkalemia, Altered mental status. Patient presents with clinical signs and symptoms consistent with dx. Pt is functionally able to perform his ADLs/IADLs with min (A). He notes that he does feel that he has achieved his baseline level of function and is feeling better. He still feels some weakness in his (B) LE which he states that walking at this time has been limited but he was able to walk today. Pt has a PT evaluation scheduled. OT will defer functional mobility back to them. No decreased UE strength or ROM at this time. AMPAC score 23 Patient is assessed as a Low 53191 complexity based on the following: History: see above Examination: see functional limitations as noted above Presentation: evolving Decision Making: AMPAC score 23 GOALS N/A seen for OT consult only. PLAN OF CARE/TREATMENT PLAN: Seen for OT consult only. DISCHARGE RECOMMENDATIONS OT recommends that pt return to the [facility] when medically cleared per MD. TREATMENT TIME/MINUTES/CODES 88517, 20 minutes (12:35) AR[facility] [place], [place]
--- NOTE | 2025-05-11 14:29 | PT.INIE ---
PT Notes Visit Reasons: Acute Hypoxic and Hypercapnic Respiratory Failure, Physical Therapy Inpatient Initial Evaluation Date: 05/11/2025 Referring Doctor: Alli Mojica MD PT Orders: PT CONSULT: Eval/Treat Precautions: Fall. Standard. Activity as tolerated. Patient Profile/Admitting Diagnosis: Venkata is a 74-year-old male who presented to the ED with complaints of shortness of breath, generalized weakness and slippage out of bed at [facility]. Patient is admitted for management of acute on chronic respiratory failure with hypercapnia, CHF exacerbation, CONCHITA, hyperkalemia, pneumonia, neuropathy, PLMD, hypothyroidism, and depression. PMHX: All Active Problems CONCHITA (acute kidney injury) (Acute) Depression (Chronic) Acute respiratory failure with hypoxia and hypercarbia (Acute) Altered mental status (Acute) Hyperkalemia (Acute) Congestive heart failure (Acute) Acute hypoxic respiratory failure (Acute) Acute hypercapnic respiratory failure (Acute) Urinary incontinence (Acute) Alzheimer dementia (Chronic) Urinary incontinence, urge (Acute) Gait instability (Acute) PLMD (periodic limb movement disorder) (Chronic) Advanced care planning/counseling discussion (Acute) Goals of care, counseling/discussion (Acute) Gait abnormality (Acute) Pneumonia (Acute) Hypothyroidism (Chronic) Pain in soft tissues of limb (Acute) Other hammer toe (acquired) (Acute) Corns and callosities (Acute) Acute cognitive decline (Acute) Cold sensation of skin (Acute) Neuropathy (Chronic) Chronic pain syndrome (Chronic) No longer taking MS and no longer on contract. 12/10/16 RENEWAL OF CONTROLLED SUBSTANCE AGREEMENT 04/2021-updated agreement/VPMS query and drug screen Sexual function problem (Acute) Polyp of colon (Acute 06/25/08) Peripheral neuralgia (Acute) of feet; idiopathic; multiple neuro w/u's; 2 brothers and mother with similar issue...likely genetic origin multiple neuro consults. See 2012 Dr Garcia. Obesity (Acute) Complete edentulism, unspecified (Acute) Anticoagulated on warfarin (Acute) A-fib; goal 2-3 Hemorrhoids (Acute) Open wound of right heel (Acute) Followed by [facility] Podiatry Medical History Palliative care encounter Cognitive decline Supratherapeutic INR Anxiety Atrial fibrillation beginning in 2002, it was initially paroxysmal and cardioverted. It is now chronic. On warfarin Chronic obstructive lung disease Hyperlipidemia Essential hypertension (03/16/13) Diabetes mellitus Surgical History Hx of cataract surgery Hx of colonoscopy Repair of inguinal hernia (~1975) right CARDIOVERSION (~2002) Social History/Home Situation: [facility] resident. Able to walk up to 50 feet from room to dining and from room to bathroom with FWW independently without oxygen prior to admisison. Equipment Owned/DME: FWW Subjective: Pleasant and cooperative. Agreeable to Pt consult. Lookign forward to going back to [facility] as soon as he is safe to do so. Verbalized that he did not use oxygen at the [facility] previously. Objective: General Observation: Seated on bedside recliner. Roblero catheter in place. High BMI. Telemetry monitoring in place. Mental Status: Alert and oriented as to person, place, time, and purpose. Able to pay attention, focus, and respond appropriately. Pain: None reported Vital Signs: Oxygen saturation at rest on 1.5 L was 92%. Desaturated to 85% after walking 40 feet. Resaturated back up to 90% on 4L but went down again to 87% on 4 L but resaturated back up to 91% on 1.5 L with seated rest about 5 minutes. ROM: Right Upper Extremity: Shoulder Flexion WFL. Shoulder abduction WFL. Elbow flexion WFL. Wrist flexion WFL. Functional opening and closing of hand WFL. Left Upper Extremity: Shoulder Flexion WFL. Shoulder abduction WFL. Elbow flexion WFL. Wrist flexion WFL. Functional opening and closing of hand WFL. Right Lower Extremity: Hip flexion WFL. Hip abduction WFL. Knee flexion WFL. Ankle dorsiflexion to neutral only. Ankle plantarflexion WFL. Left Lower Extremity: Hip flexion WFL. Hip abduction WFL. Knee flexion WFL. Ankle dorsiflexion WFL. Ankle plantarflexion WFL. Strength: Right Upper Extremity: Grossly 4/5 Left Upper Extremity: Grossly 4/5 Right Lower Extremity: Hip flexors 4-/5. Hip abductors 4-/5. Knee flexors 4/5. Knee extensors 4-/5. Ankle dorsiflexors3- /5. Ankle plantarflexors 4-/5. Left Lower Extremity: Hip flexors 4-/5. Hip abductors 4-/5. Knee flexors 4/5. Knee extensors 4-/5. Ankle dorsiflexors3- /5. Ankle plantarflexors 4-/5. Bed Mobility/Transfers: Minimal cueing provided for use of B hands as needed for support, movement sequence, AD management, and posture to reduce fall risk and minimize pain report Sit to stand contact guard assist Stand to sit minimal assist with FWW Bed to reclining chair minimal assist with FWW Reclining chair to bed minimal assist with FWW Gait: Facilitated safe and correct performance of level surface ambulation using the front-wheeled walker covering a distance of 40 feet + 50 feet with 1.5 L of O2/min with contact guard assist and wheelchair follow of IZZY Banuelos for safety. Oxygen saturation went down to 85% and so supplement was titrated up to 4L with advise of Nurse Margaux per RT recommendation, patient resaturated back to 90% but after walking another 50 feet went back down to 87%. After seated rest patient recovered after about 2-3 minutes and was left comfortably on the chair back to 1.5 L/min saturating at 90%. Stairs: Not done today Balance: Static Sitting: Normal Dynamic Sitting: Normal Static Standing: Fair Dynamic Standing: Fair Special Tests: Mobility Limitations Standardized Measure [facility] AM-PAC 6 clicks Basic Mobility Inpatient Short Form: Raw Score: 18 CMS Score: 47% deficit Informed Consent/Education: Patient was instructed in purpose of PT consult and plan of care. Agreeable to proceed with established PT POC to achieve personal goals. Assessment: Patient presents with clinical signs and symptoms consistent with current/admitting diagnoses that have resulted to mobility limitations, gait instability, generalized weakness, and overall ADL decline as demonstrated by the following impairment level findings: 1. Decreased strength to B UE/LE major muscle groups 2. Impaired sitting/standing balance 3. Impaired activity tolerance 4. Limitation of joint range of motion in B hip and knee joints 5. Shortness of breath 6. Swelling in B UE Impairments are contributing to the following functional limitations: 1. Decline in bed mobility skills 2. Decline in transfer skills 3. Difficulty with ambulation without assistive device and physical assistance 4. Increased completion time for mobility ADL performance 5. Increased risk for falls 6. Difficulty with managing steps alone safely Patient is assessed as a 30519 moderate complexity based on the following: History: 74-year-old male with past medical history as indicated above Examination: Demonstrable impairment in strength, balance, and mobility level with underlying impairments and functional limitations as exhibited above as well as deficit score of 47% utilizing the [facility] Mobility Inpatient Short Form Presentation: Evolving Decision Makin moderate complexity Goals: Goals X1 week 1. Supine-Sit independent 2. Sit-Supine independent 3. Sit-Stand independent 4. Stand-Sit independent with FWW 5. Bed-Chair independent with FWW 6. Chair-Bed independent with FWW 7. Independent gait on level surface with use of FWW for at least 150 feet without report of pain nor dyspnea 8. Good static and dynamic standing balance/tolerance Plan of Care/Treatment Plan: 1-2x/day, 7 days/week x 1 week. Plan of care has been reviewed with the COMPOUNDER providing the service under Physical Therapy direction. Initiate Physical Therapy intervention for pain management as needed, strengthening, bed mobility, transfers, gait, stairs, balance training, and use of assistive device. DISCHARGE RECOMMENDATIONS: PT at [facility] when medically cleared to go home. TREATMENT CODE/TIME: 75977 x 20 minutes for 1 unit, 22899 x 16 minutes for 1 unit (14:29-15:05). Thank you for the opportunity to participate in the care of this patient. Ninfa Leroy PT, DPT, CLT [facility] [place], [place]
--- NOTE | 2025-05-11 16:07 | W.PM.PROGNOT ---
Date of Service Date of service: 05/11/25 Time of Service: 08:00 Assessment and Plan Assessment and plan (1) Acute respiratory failure with hypoxia and hypercarbia: Start date: 05/08/25 Status: Acute Assessment and plan: Appreciate Dr Mojica (pulmonology) consult Volatile CO2 in ABG/VBG not apparently related to bipap use / nonuse COPD exacerbation less likely than pulmonary edema, consider new HF Echocardiogram completed, read not available Diuresis with IV furosemide Dr Mojica is arranging home noninvasive ventilation. Will need PFTs (2) Congestive heart failure: Start date: 05/08/25 Status: Chronic Assessment and plan: Echo with EF 55-60% in atrial fibrillation, severe right atrial dilation, moderately elevated right side pressures (3) CONCHITA (acute kidney injury): Start date: 05/08/25 Status: Acute Assessment and plan: Elevated creatinine 1.64->1.37->1.27 against normal baseline, improving Continue diuresis, monitor UO (4) Hyperkalemia: Start date: 05/08/25 Status: Resolved Assessment and plan: Repleted, resolved. (5) Pneumonia: Start date: 05/08/25 Assessment and plan: Broad spectrum antibiotics discontinued Continue on CAP regimen, ceftriaxone and azithromycin (6) Essential hypertension: Assessment and plan: Continue outpatient medical therapy and adjust as needed. (7) Atrial fibrillation: Assessment and plan: Continue outpatient medical therapy along with oral anticoagulant with no evidence of acute hemorrhage. (8) Alzheimer dementia: Status: Chronic Assessment and plan: Continue outpatient treatment with Aricept and Namenda. He appears to be functioning fairly well with this problem. (9) Chronic obstructive lung disease: Assessment and plan: Patient is a remote smoker but not on inhalers recently. There is some evidence of chronic CO2 retention on his chemistries. Nebulizer treatments with DuoNeb while hospitalized though he does not have overt wheeze. (10) Diabetes mellitus: Assessment and plan: Hold outpatient medical therapy with glucometers before meals and at bedtime and moderate sliding scale coverage with his meals. (11) Neuropathy: Status: Chronic Assessment and plan: Continue outpatient medical therapy. (12) Hypothyroidism: Status: Chronic Assessment and plan: Continue outpatient supplement therapy. (13) PLMD (periodic limb movement disorder): Status: Chronic Assessment and plan: Continue outpatient medical therapy. (14) Depression: Status: Chronic Assessment and plan: This appears stable, continue outpatient medical therapy. Subjective Subjective Interval history since last seen: Mr. Kay is comfortable in bed. No longer requiring ICU. Exam Narrative Exam Narrative: General: This is a pleasant man on bipap HEENT: Normocephalic, atraumatic CV: irregular rate and irregular rhythm, no murmur Resp: Diminished breath sounds bilaterally on bipap Abd: soft, NTND MSK: voluntary motion x4 Neuro: awake, alert, no focal deficits Objective Last Vital Signs Temp 36.4 C L 05/11/25 12:51 Pulse 94 H 05/11/25 12:49 Resp 22 05/11/25 12:49 BP 102/90 05/11/25 12:49 Pulse Ox 81 L 05/11/25 15:22 Laboratory Results - last 24 hr 05/11/25 05:45 WBC 7.81 RBC 4.44 Hgb 13.4 L Hct 43.3 MCV 98 H MCH 30.2 MCHC 30.9 L RDW 14.0 Plt Count 102 L MPV 12.0 H Sodium 138 Potassium 4.6 Chloride 96 L Carbon Dioxide 36.7 H Anion Gap 4.8 BUN 34 H Creatinine 1.09 Est GFR (CKD-EPI 2020) 65.67 Glucose 117 H Calcium 8.8 Magnesium 1.8 Total Bilirubin 0.7 AST 26 ALT 9 L Alkaline Phosphatase 80 Total Protein 6.7 Albumin 3.9 VTE Prohylaxis Risk Level: Moderate/High Risk Contraindications: Medical contrainidcation (Risk of falls with low platelet count,on Xarelto) Prophylaxis: Mechanical Time Spent with Patient Time Spent with Patient: 25-34 minutes Time was spent: preparing to see the patient(eg.review tests), obtaining and/or reviewing separately otained hiistory, ordering medications,tests, procedures, referring, communicating with other health zoo caretaker, indepentently interpreting results, counseling the patient and care coordination
--- NOTE | 2025-05-11 17:08 | PDOC.CMPRO ---
Date of service: 05/11/25 Time of Service: 12:30 Care Management Progress Note Progress Note Text Progress Note Text: Venkata was sitting up in the chair when CM met with him today. He was very pleasant. He had just finished lunch, and was very pleased with it. CM spoke with Venkata about going home with bipap. Dr. Mcduffie is ordering it for him. He will need to be mostly independent with his machine when he returns to [facility]. Venkata feels that he will be able to handle that. He is not really able to practice here at the hospital, as the machine is much different. He will receive teaching from the [employer] when the unit is delivered to him. Venkata is anxious to return home, but [facility] has expressed that they are unable to take him until Friday. Discharge Potential Discharge Needs: PCP F/U Appt Anticipated Barriers to Discharge: None Identified Patient/Family Education Needs: Review discharge instructions, discuss Ask Me Three Transportation: Private vehicle Plan: Anticipate Venkata will be discharged back to [facility] when medically stable. He will follow up with his community providers and plan of care and transport with family or staff. CM will follow and continue to assess for discharge needs. Social Determinants of Health Screening Social Determinants of health last assessed in clinic: 05/11/25 Will the Patient Participate in the Screening?: Yes Do you worry about having a steady place to live?: no Problems where you live: no known problems In the past 12 months, have you had to go without electric, gas, oil or water in your home?: no 1. Within the past 12 months, we worried whether our food would run out before we got money to buy more.: Don't know/refused 2. Within the past 12 months, the food we bought just didn't last and we didn't have money to get more.: Don't know/refused Has lack of transportation kept you from medical appointments or from doing things needed for daily living?: no Has anyone in your life made you feel unsafe or unsupported?: no How hard is it for you to pay for the very basics like food, housing, medical care, and heating? Would you say it is:: Not hard at all Do you want help finding or keeping work or a job?: I do not need or want help If for any reason you need help with day-to-day activities such as bathing, preparing meals, shopping, managing finances, etc., do you get the help you need?: I don?t need any help How often do you feel lonely or isolated from those around you?: Rarely Do you speak a language other than Togolese at home?: No Comments: Pt resides at the [facility] Health Related Social Needs Health related social needs: feeling lonely/isolated (Z60.8) Health related social needs details: n/a
--- NOTE | 2025-05-11 18:14 | W.PC.ACHO ---
Registration Status: ADM IN Primary Language: Preferred Language: Kinyarwanda ED Information & Data Chief Complaint RespSymp 05/08/25 01:21 Triage Note Periods of grunting 05/08/25 00:36 respirations, hypoxic without O2, PT reports feeling fine. Encountered FD tonight after falling out of bed. Medical / Surgical History (Last Updated 05/11/25 @ 07:17 by Alli Mojica MD) Acute hypercapnic respiratory failure Pneumonia Palliative care encounter Cognitive decline Supratherapeutic INR Anxiety Atrial fibrillation Chronic obstructive lung disease Hyperlipidemia Essential hypertension (03/16/13) Diabetes mellitus (Last Reviewed 05/08/25 @ 04:27 by Terrence Summers) Hx of cataract surgery Hx of colonoscopy Repair of inguinal hernia (~1975) CARDIOVERSION (~2002) Most Recent Vital Signs Temperature 36.2 C L 05/11/25 18:06 Temperature Source Temporal Artery Scan 05/11/25 18:06 Pulse 89 05/11/25 18:06 Pulse 102 H 05/11/25 16:55 Respiratory Rate 16 05/11/25 18:06 Respiratory Effort Short of Breath, Incrsd Work of Breathing 05/08/25 06:26 Respiratory Depth Shallow 05/08/25 06:26 Respiratory Pattern Normal 05/08/25 06:26 Blood Pressure 111/97 H 05/11/25 18:06 Blood Pressure Mean 101 05/11/25 18:06 Blood Pressure Position Sitting 05/08/25 00:50 Pulse Oximetry 92 05/11/25 18:06 Oxygen Delivery Method Nasal Cannula 05/11/25 18:06 Oxygen Flow Rate 2 05/11/25 18:06 Fraction of Inspired Oxygen (FIO2) 55 05/11/25 04:25 Pain Level 0 05/11/25 18:06 Comment Bipap settings: 18/ FIO2 40%, RR 16 05/09/25 07:27 Allergies ibuprofen Allergy (Unknown, Verified 05/08/25 04:35) ITCHING simvastatin Adverse Reaction (Intermediate, Verified 05/08/25 04:35) ? OF NEUROPATHY OF FEET ILENE Inhibitors Adverse Reaction (Unknown, Verified 05/08/25 04:35) COUGH Active Medications Generic Name Dose Route Start Last Admin Trade Name Freq PRN Reason Stop Dose Admin Acetaminophen 650 mg 05/08/25 06:18 05/09/25 20:56 Acetaminophen 325 Mg Tab PO 650 mg Q4H PRN PRN Administration Albuterol Sulfate 2.5 mg 05/08/25 06:18 05/10/25 04:12 Albuterol 2.5 Mg/3 Ml Inh Soln Vial UPD 2.5 mg Q2H PRN PRN Administration Carboxymethylcellulose Sodium 1 each 05/08/25 08:30 05/11/25 14:14 Refresh Plus Eye Drops 0.4ml OP 1 drp TID TEX Administration Cyanocobalamin 1,000 mcg 05/08/25 08:30 05/11/25 08:56 Cyanocobalamin 500 Mcg Tab PO 1,000 mcg DAILY TEX Administration Donepezil HCl 10 mg 05/08/25 20:00 05/10/25 20:32 Donepezil 5 Mg Tab PO 10 mg HS TEX Administration Duloxetine HCl 60 mg 05/08/25 08:30 05/11/25 08:55 Duloxetine 30 Mg Cap PO 60 mg BID TEX Administration Furosemide 40 mg 05/09/25 09:10 05/11/25 16:11 Furosemide 40 Mg/4 Ml Vial IVP 40 mg BID@0800,1600 TEX Administration Sodium Chloride 500 mls @ 0 mls/hr 05/09/25 13:37 05/09/25 13:38 Saline 500ml Bag IV 1 mls/hr PRN PRN Administration As Directed Insulin Aspart 0 units 05/08/25 08:00 05/11/25 12:04 Insulin Aspart 300 Units/3 Ml Pen SC 4 units 0800,1200,1700 TEX Administration Protocol Levothyroxine Sodium 25 mcg 05/08/25 07:00 05/11/25 06:31 Levothyroxine 25 Mcg Tab PO 25 mcg 0600 TEX Administration Losartan Potassium 50 mg 05/08/25 08:30 05/11/25 08:56 Losartan 50 Mg Tab PO 50 mg DAILY TEX Administration Memantine 10 mg 05/08/25 08:30 05/11/25 08:55 Memantine 5 Mg Tab PO 10 mg BID TEX Administration Mirabegron 25 mg 05/08/25 08:30 05/11/25 08:55 Mirabegron 25 Mg Tabcr PO 25 mg DAILY TEX Administration Olopatadine HCl 1 ml 05/08/25 08:30 05/11/25 08:57 Olopatadine 0.1% Ophth Tomeka 5 Ml Btl OP 1 drp DAILY TEX Administration Pravastatin Sodium 40 mg 05/08/25 20:00 05/10/25 20:32 Pravastatin 40 Mg Tab PO 40 mg HS TEX Administration Pregabalin 100 mg 05/08/25 08:30 05/11/25 14:14 Pregabalin 100 Mg Cap PO 100 mg TID TEX Administration Rivaroxaban 20 mg 05/08/25 08:30 05/11/25 08:55 Rivaroxaban 10 Mg Tablet PO 20 mg DAILY TEX Administration Ropinirole HCl 0.25 mg 05/08/25 08:30 05/11/25 14:14 Ropinirole 0.25 Mg Tab PO 0.25 mg TID TEX Administration Sodium Chloride 0 ml 05/08/25 06:18 05/10/25 16:03 Normal Saline Flush 10 Ml Syr IVP 40 ml PRN PRN Administration Sodium Chloride 0 ml 05/08/25 08:30 05/11/25 08:54 Normal Saline Flush 10 Ml Syr IVP 30 ml BID TEX Administration Trazodone HCl 100 mg 05/08/25 20:00 05/10/25 20:33 Trazodone 100 Mg Tab PO [address] mg HS TEX [address]-Dwaff-Dxtwupmgqd Acetate 400 units 05/08/25 08:30 05/11/25 08:57 Vitamin E 400 Units Cap PO 400 units BID TEX Administration IV IV Catheter Type [right hand] Saline Lock IV Catheter Type [Right Wrist] Peripheral IV IV Catheter Type [Right Saline Lock Forearm] IV Catheter Type [Left Saline Lock Antecubital] IV Catheter Gauge [right hand] 20 IV Catheter Gauge [Right Wrist 20 ] IV Catheter Gauge [Right 18 Forearm] IV Catheter Gauge [Left 18 Antecubital] Diagnostics 05/11/25 Range/Units 05:45 WBC 7.81 (4.4-10.8) 10^3/uL RBC 4.44 (4.36-5.78) 10^6/uL Hgb 13.4 L (13.5-17.5) g/dL Hct 43.3 (40.0-50.0) % MCV 98 H (80-95) fL MCH 30.2 (27.0-33.0) pg MCHC 30.9 L (32.0-36.0) % RDW 14.0 (11.8-14.1) % Plt Count 102 L (130-400) 10^3/uL MPV 12.0 H (8.0-11.0) fL Sodium 138 (136-145) mmol/L Potassium 4.6 (3.5-5.1) mmol/L Chloride 96 L (98-107) mmol/L Carbon Dioxide 36.7 H (20.0-31.0) mmol/L Anion Gap 4.8 (3-11) mmol/L BUN 34 H (9-23) mg/dL Creatinine 1.09 (0.73-1.18) mg/dL Est GFR (CKD-EPI 2020) 65.67 (mL/min/1.73m2) Glucose 117 H (74-106) mg/dL Calcium 8.8 (8.3-10.6) mg/dL Magnesium 1.8 (1.6-2.6) mg/dL Total Bilirubin 0.7 (0.2-1.2) mg/dL AST 26 (<34) U/L ALT 9 L (10-49) U/L Alkaline Phosphatase 80 (46-116) U/L Total Protein 6.7 (5.7-8.2) g/dL Albumin 3.9 (3.2-5.0) g/dL 05/08/25 01:25 Blood Culture - Preliminary Blood NO GROWTH 72 HOURS 05/08/25 01:12 Blood Culture - Preliminary Blood NO GROWTH 72 HOURS [id number] Documentation Fingerstick Glucose Start: 05/08/25 00:45 Freq: .Stat Status: Complete Protocol: Activity Type Activity Date Activity User E-sign Co-sign Detail Recorded Client Recorded Date Recorded By Document 05/08/25 00:47 BKG DAEMON(5) NVT-BG05 05/08/25 00:48 BKG DAEMON(6) Fingerstick Glucose Start: 05/08/25 06:18 Freq: .ACHS Status: Active Protocol: Activity Type Activity Date Activity User E-sign Co-sign Detail Recorded Client Recorded Date Recorded By Document 05/11/25 16:54 BKG DAEMON(7) NVT-BG05 05/11/25 17:05 BKG DAEMON(8) Intake and Output - 24 Hour Total 05/08/25 00:31 thru 05/11/25 17:54 Intake Total 7596 Output Total 9625 Balance -1679 Weight 136.6 kg Intake: IV 620 Oral 6976 Output: Urine 9275 Other: Urine Color Dark Harris Urine Appearance Clear Comment base color yellow/harris with clots Stool Size Large Stool Characteristics Formed Brown Urinary Catheter Urinary Catheter Date of 05/08/25 Insertion [Urethral (Roblero)] Time of insertion [Urethral ( 02:40 Roblero)] Falls Risk Assessment History of Falls Admit Due to Fall 05/08/25 06:26 Contributing Factors Confusion,Unstable, 05/08/25 06:26 Medications Ambulatory Aids Uses ambulatory device + 05/08/25 06:26 Tubes/Lines With any additional score 05/08/25 06:26 Gait Evaluation W/any additional score 05/08/25 06:26 Cognition Cognitive impairment 05/08/25 06:26 Fall Total Score 119 05/08/25 06:26 Level of Risk Maximum Risk 05/08/25 06:26 Problems (Last Updated 05/11/25 @ 07:17 by Alli Mojica MD) Acute and chronic respiratory failure with hypercapnia (Acute) Pulmonary edema (Acute) Obesity hypoventilation syndrome (Acute) CONCHITA (acute kidney injury) (Acute) Depression (Chronic) Acute respiratory failure with hypoxia and hypercarbia (Acute) Congestive heart failure (Chronic) Acute hypoxic respiratory failure (Acute) Alzheimer dementia (Chronic) PLMD (periodic limb movement disorder) (Chronic) Hypothyroidism (Chronic) Neuropathy (Chronic) Notes 05/08/25 04:30 Nursing Notes by Sid Hardy Nursing Note: Called [facility] for med rec information as patient was sent without paperwork. Unable to reach anyone, left voicemail on confidential nurses station line with call back number. [place] [facility] [place] Initialized on 05/08/25 04:30 - END OF NOTE Attestation Statement: By documenting the first initial, last name, and credentials of the reporting nurse below, both parties acknowledge that all relevant information regarding the patient handoff has been communicated, and that all questions have been addressed to ensure continuity and safety of care. Additional Patient Information/Comments: Report Received From: [facility] ICU at [id number]
[2025-05-11] MEDS: traZODone 100 MG TAB PO (20:55)
[2025-05-11] MEDS: Pravastatin 40 MG TAB PO (20:55)
[2025-05-11] MEDS: Donepezil 5 MG TAB 10 MG PO (21:58)
[2025-05-12] VITALS (11 sets, daily range): BP systolic 98–128; BP diastolic 48–77; PULSE 78–107; RESP 16–28; TEMP 36.2–37.3; O2SAT 86–98
--- NOTE | 2025-05-12 08:06 | W.PULMPROG ---
Assessment and Plan Assessment and plan (1) Obesity hypoventilation syndrome: Status: Acute (2) Pulmonary edema: Status: Acute (3) Acute hypoxic respiratory failure: Status: Acute General Date Of Service Date of service: 05/11/25 Time of Service: 07:30 Requesting physician: Koby Quintero Reason for Consult: Respiratory failure Recommendations: Assessment: 1. Acute hypoxemic respiratory failure - improved. Suspect due to pulmonary edema. Clinical picture less consistent with acute infectious pneumonia. WBC normal, afebrile, rapid improvement with diuresis / BiPAP, suggestive of CHF exacerbation/pulmonary edema. On room air this AM. Required 4 L O2 with exertion 2. Acute on chronic hypercapnic respiratory failure - ddx: OHS vs COPD vs respiratory muscle fatigue/pulmonary edema. Baseline CO2 ~60 based on ABG results. No prior PFT's available 3. Pulmonary edema - clinically improved with diuresis. Echo showed normal EF and elevated right sided pressures (RVSP 53) 4. Hx tobacco abuse 5. Afib - on xarelto 6. 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 This would help reduced re-admission rates and improve his quality of life. Will send order for Trilogy NIV. Will have it setup while in the hospital. Seems as though his place at the assisted living facility will not be ready until friday. RT to work with him to setup over the weekend - can change to PO diuresis (lasix 40 mg daily is reasonable) - ambulatory oximetry study prior to discharge to assess home O2 needs - plan for outpatient PFT's Discussed with Dr. Quintero Subjective Note Note: Patient is a 74 yo with a history of tobacco abuse, morbid obesity, Alzheimer's disease, afib, who was admitted for acute hypoxemic / hypercapnic respiratory failure. He was found down at his assisted living facility. SpO2 was in 70's. Was brought to the ED via EMS. VBG showed PCO2 88, pH 7.22. He was placed on BiPAP and given diuresis with improvement. Prior to hospitalization, he denied any fevers, chills/night sweats, significant LE swelling or purulent sputum production. No known history of lung disease/COPD. Does not use any inhalers at home. Has not required BiPAP in the daytime for the past 48 hours. Tolerating well with sleep at night. With ambulation yesterday, he required 4 L O2. Doing well this AM. Denied complaints. No dyspnea at rest. No cough, or chest pain. ROS: 6 pt ROS negative except as in HPI Family history: Denied family history of lung disease Smoking history: smoked 1 ppd x 20 years. Quit 2009 Exam Narrative Exam Narrative: General: alert, no acute distress Head: normocephalic ENT: no stridor, trachea midline CV: normal rate, irregular rhythm Respiratory: no wheezing, no crackles, no rhonchi, no prolonged expiration GI: abd soft, non-tender, non-distended Skin: no rashes Extremities: trace edema, no digital clubbing Psych: normal affect Objective Last Vital Signs Temp 36.6 C 05/12/25 02:41 Pulse 78 05/12/25 02:41 Resp 20 05/12/25 02:41 BP 128/76 05/12/25 02:41 Pulse Ox 94 05/12/25 02:41 Results Medications Medications: Active Medications Generic Name Dose Route Start Last Admin Trade Name Freq PRN Reason Stop Dose Admin Acetaminophen 650 mg 05/08/25 06:18 05/09/25 20:56 Acetaminophen 325 Mg Tab PO 650 mg Q4H PRN PRN Administration Al Hydrox/Mg Hydrox/Simethicone 30 ml 05/08/25 06:18 Mylanta Suspension 30 Ml Cup PO Q2H PRN PRN Albuterol Sulfate 2.5 mg 05/08/25 06:18 05/10/25 04:12 Albuterol 2.5 Mg/3 Ml Inh Soln Vial UPD 2.5 mg Q2H PRN PRN Administration Albuterol/Ipratropium 3 ml 05/10/25 19:07 Albuterol/Ipratropium 3 Ml Upd Vial UPD Q6H PRN PRN Carboxymethylcellulose Sodium 1 each 05/08/25 08:30 05/11/25 21:11 Refresh Plus Eye Drops 0.4ml OP 1 drp TID TEX Administration Cyanocobalamin 1,000 mcg 05/08/25 08:30 05/11/25 08:56 Cyanocobalamin 500 Mcg Tab PO 1,000 mcg DAILY TEX Administration Dextrose 0 gm 05/08/25 06:18 Glucose Oral Gel 15 Gm/37.5 Gm Tube PO DIRECTED PRN Dextrose/Water 0 gm 05/08/25 06:18 Dextrose 50%-Water 25 Gm/50 Ml Syr IVP DIRECTED PRN Docusate Sodium 100 mg 05/08/25 06:18 Docusate Sodium 100 Mg Cap PO TID PRN PRN Donepezil HCl 10 mg 05/08/25 20:00 05/11/25 21:58 Donepezil 5 Mg Tab PO 10 mg HS TEX Administration Duloxetine HCl 60 mg 05/08/25 08:30 05/11/25 20:54 Duloxetine 30 Mg Cap PO 60 mg BID TEX Administration Ergocalciferol 50,000 units 05/13/25 08:30 Ergocalciferol 07480 Units Cap PO Fr TEX Furosemide 40 mg 05/09/25 09:10 05/11/25 16:11 Furosemide 40 Mg/4 Ml Vial IVP 40 mg BID@0800,1600 TEX Administration Sodium Chloride 500 mls @ 0 mls/hr 05/09/25 13:37 05/09/25 13:38 Saline 500ml Bag IV 1 mls/hr PRN PRN Administration As Directed Insulin Aspart 0 units 05/08/25 08:00 05/11/25 20:51 Insulin Aspart 300 Units/3 Ml Pen SC Not Given 0800,1200,1700 [facility] Protocol Levothyroxine Sodium 25 mcg 05/08/25 07:00 05/11/25 06:31 Levothyroxine 25 Mcg Tab PO 25 mcg 0600 ETX Administration Losartan Potassium 50 mg 05/08/25 08:30 05/11/25 08:56 Losartan 50 Mg Tab PO 50 mg DAILY TEX Administration Magnesium Hydroxide 30 ml 05/08/25 06:18 Milk Of Magnesia 30 Ml Cup PO DAILY PRN PRN Memantine 10 mg 05/08/25 08:30 05/11/25 20:56 Memantine 5 Mg Tab PO 10 mg BID TEX Administration Mirabegron 25 mg 05/08/25 08:30 05/11/25 08:55 Mirabegron 25 Mg Tabcr PO 25 mg DAILY TEX Administration Olopatadine HCl 1 ml 05/08/25 08:30 05/11/25 08:57 Olopatadine 0.1% Ophth [place] 5 Ml Btl OP 1 drp DAILY TEX Administration Polyethylene Glycol 17 gm 05/08/25 06:18 Polyethylene Glycol 3350 17 Gm Packet PO DAILY PRN PRN Constipation Pravastatin Sodium 40 mg 05/08/25 20:00 05/11/25 20:55 Pravastatin 40 Mg Tab PO 40 mg HS TEX Administration Pregabalin 100 mg 05/08/25 08:30 05/11/25 20:55 Pregabalin 100 Mg Cap PO 100 mg TID TEX Administration Rivaroxaban 20 mg 05/08/25 08:30 05/11/25 08:55 Rivaroxaban 10 Mg Tablet PO 20 mg DAILY TEX Administration Ropinirole HCl 0.25 mg 05/08/25 08:30 05/11/25 21:11 Ropinirole 0.25 Mg Tab PO 0.25 mg TID TEX Administration Sodium Chloride 0 ml 05/08/25 06:18 05/10/25 16:03 Normal Saline Flush 10 Ml Syr IVP 40 ml PRN PRN Administration Sodium Chloride 0 ml 05/08/25 08:30 05/11/25 20:56 Normal Saline Flush 10 Ml Syr IVP 10 ml BID TEX Administration Sodium Chloride 0 ml 05/08/25 06:18 Normal Saline 10 Ml Vial IJ DIRECTED PRN Trazodone HCl 100 mg 05/08/25 20:00 05/11/25 20:55 Trazodone 100 Mg Tab PO 100 mg HS TEX Administration dn-Yulsk-Ccbqzsjsgu Acetate 400 units 05/08/25 08:30 05/11/25 21:11 Vitamin E 400 Units Cap PO 400 units BID TEX Administration Allergies ibuprofen Allergy (Unknown, Verified 05/08/25 04:35) ITCHING simvastatin Adverse Reaction (Intermediate, Verified 05/08/25 04:35) ? OF NEUROPATHY OF FEET ILENE Inhibitors Adverse Reaction (Unknown, Verified 05/08/25 04:35) COUGH Labs 05/11/25 05:45 05/11/25 05:45 Labs: 05/08/25 01:25 Blood Blood Culture - Preliminary NO GROWTH 96 HOURS 05/08/25 01:12 Blood Blood Culture - Preliminary NO GROWTH 96 HOURS Laboratory Tests Range/Units 05/08/25 05/08/25 05/08/25 00:30 00:45 00:55 WBC (4.4-10.8) 10^3/uL 7.91 RBC (4.36-5.78) 10^6/uL 4.91 Hgb (13.5-17.5) g/dL 14.7 Hct (40.0-50.0) % 50.1 H MCV (80-95) fL 102 H MCH (27.0-33.0) pg 29.9 MCHC (32.0-36.0) % 29.3 L RDW (11.8-14.1) % 14.2 H Plt Count (130-400) 10^3/uL 122 L MPV (8.0-11.0) fL 12.1 H Immature Gran % % 0.5 Neutrophils % % 76.2 Lymphocytes % % 13.0 Monocytes % % 7.3 Eosinophils % % 2.7 Basophils % % 0.3 Nucleated RBC % (0.0-0.3) % 0.0 Absolute Neutrophils (1.2-6.7) 10^3/uL 6.03 Absolute Lymphocytes (1.2-3.4) 10^3/uL 1.03 L Absolute Monocytes (0.1-0.8) 10^3/uL 0.58 Absolute Eosinophils (0.0-0.7) 10^3/uL 0.21 Absolute Basophils (0.0-0.2) 10^3/uL 0.02 PT (9.1-11.1) sec INR (0.9-1.1) D-Dimer (<500) ng/mlFEU ABG Sample Site ABG pH (7.35-7.45) ABG pCO2 (35-45) mmHg ABG pO2 (80-105) mmHg ABG HCO3 (22-26) mmol/L ABG Total CO2 (23-27) mmol/L ABG O2 Saturation (95-98) % ABG Base Excess (-2-3) mmol/L VBG pH (7.31-7.41) 7.22 L Cancelled VBG pCO2 (41-51) mmHg 88 H* Cancelled VBG pO2 mmHg 83 Cancelled VBG HCO3 (23-28) mmol/L 37 H Cancelled VBG Total CO2 (24-29) mmol/L 39 H Cancelled VBG O2 Saturation % 93 Cancelled VBG Base Excess (-2-3) mmol/L 9 H Cancelled VBG Lactate (<or=2.0) mmol/L 1.1 Cancelled Oxygen Liter Flow L Sodium (136-145) mmol/L Potassium (3.5-5.1) mmol/L Chloride (98-107) mmol/L Carbon Dioxide (20.0-31.0) mmol/L Anion Gap (3-11) mmol/L BUN (9-23) mg/dL Creatinine (0.73-1.18) mg/dL Est GFR (CKD-EPI 2020) (mL/min/1.73m2) Glucose (74-106) mg/dL Calcium (8.3-10.6) mg/dL Magnesium (1.6-2.6) mg/dL Total Bilirubin (0.2-1.2) mg/dL AST (<34) U/L ALT (10-49) U/L Alkaline Phosphatase (46-116) U/L Troponin I (<54) ng/L NT-Pro-B Natriuret Pep (<300) pg/mL Total Protein (5.7-8.2) g/dL Albumin (3.2-5.0) g/dL TSH (0.55-4.78) uIU/mL Urine Color (Yellow) Urine Clarity (Clear) Urine pH (5-8) Ur Specific [place] (1.005-1.025) Urine Protein (Neg-Trace) mg/dL Urine Ketones (Negative) mg/dL Urine Blood (Negative) Urine Nitrite (Negative) Urine Bilirubin (Negative) Urine Urobilinogen (Up to 0.2) mg/dL Ur Leukocyte Esterase (Negative) Urine RBC (0-2) HPF Urine WBC (0-5) HPF Ur Epithelial Cells (Negative) HPF Urine Crystals (Negative) HPF Urine Bacteria (Negative) HPF Urine Casts (Negative) LPF Urine Mucus (Negative) Ur Culture Indicated? Urine Glucose (Negative) mg/dL COVID-19 Source SARS-CoV-2 (PCR) (Negative) Influenza Type A (PCR) (Negative) Influenza Type B (PCR) (Negative) RSV (PCR) (Negative) Add-On Test Request Range/Units 05/08/25 05/08/25 05/08/25 01:23 01:25 02:20 WBC (4.4-10.8) 10^3/uL RBC (4.36-5.78) 10^6/uL Hgb (13.5-17.5) g/dL Hct (40.0-50.0) % MCV (80-95) fL MCH (27.0-33.0) pg MCHC (32.0-36.0) % RDW (11.8-14.1) % Plt Count (130-400) 10^3/uL MPV (8.0-11.0) fL Immature Gran % % Neutrophils % % Lymphocytes % % Monocytes % % Eosinophils % % Basophils % % Nucleated RBC % (0.0-0.3) % Absolute Neutrophils (1.2-6.7) 10^3/uL Absolute Lymphocytes (1.2-3.4) 10^3/uL Absolute Monocytes (0.1-0.8) 10^3/uL Absolute Eosinophils (0.0-0.7) 10^3/uL Absolute Basophils (0.0-0.2) 10^3/uL PT (9.1-11.1) sec INR (0.9-1.1) D-Dimer (<500) ng/mlFEU 413 ABG Sample Site ABG pH (7.35-7.45) ABG pCO2 (35-45) mmHg ABG pO2 (80-105) mmHg ABG HCO3 (22-26) mmol/L ABG Total CO2 (23-27) mmol/L ABG O2 Saturation (95-98) % ABG Base Excess (-2-3) mmol/L VBG pH (7.31-7.41) 7.25 L VBG pCO2 (41-51) mmHg 78 H* VBG pO2 mmHg 58 VBG HCO3 (23-28) mmol/L 34 H VBG Total CO2 (24-29) mmol/L 31 H VBG O2 Saturation % 86 VBG Base Excess (-2-3) mmol/L 7 H VBG Lactate (<or=2.0) mmol/L Oxygen Liter Flow L Sodium (136-145) mmol/L 143 Potassium (3.5-5.1) mmol/L 5.2 H Chloride (98-107) mmol/L 104 Carbon Dioxide (20.0-31.0) mmol/L 35.9 H Anion Gap (3-11) mmol/L 3.1 BUN (9-23) mg/dL 37 H Creatinine (0.73-1.18) mg/dL 1.64 H Est GFR (CKD-EPI 2020) (mL/min/1.73m2) 40.99 Glucose (74-106) mg/dL 183 H Calcium (8.3-10.6) mg/dL 8.5 Magnesium (1.6-2.6) mg/dL 2.2 Total Bilirubin (0.2-1.2) mg/dL 0.5 AST (<34) U/L 13 ALT (10-49) U/L 7 L Alkaline Phosphatase (46-116) U/L 101 Troponin I (<54) ng/L 17 15 NT-Pro-B Natriuret Pep (<300) pg/mL 1442 H Total Protein (5.7-8.2) g/dL 7.7 Albumin (3.2-5.0) g/dL 4.5 TSH (0.55-4.78) uIU/mL 2.81 Urine Color (Yellow) Urine Clarity (Clear) Urine pH (5-8) Ur Specific [place] (1.005-1.025) Urine Protein (Neg-Trace) mg/dL Urine Ketones (Negative) mg/dL Urine Blood (Negative) Urine Nitrite (Negative) Urine Bilirubin (Negative) Urine Urobilinogen (Up to 0.2) mg/dL Ur Leukocyte Esterase (Negative) Urine RBC (0-2) HPF Urine WBC (0-5) HPF Ur Epithelial Cells (Negative) HPF Urine Crystals (Negative) HPF Urine Bacteria (Negative) HPF Urine Casts (Negative) LPF Urine Mucus (Negative) Ur Culture Indicated? Urine Glucose (Negative) mg/dL COVID-19 Source Nasopharynx SARS-CoV-2 (PCR) (Negative) Negative Influenza Type A (PCR) (Negative) Negative Influenza Type B (PCR) (Negative) Negative RSV (PCR) (Negative) Negative Add-On Test Request Range/Units 05/08/25 05/08/25 05/08/25 02:39 02:45 03:35 WBC (4.4-10.8) 10^3/uL RBC (4.36-5.78) 10^6/uL Hgb (13.5-17.5) g/dL Hct (40.0-50.0) % MCV (80-95) fL MCH (27.0-33.0) pg MCHC (32.0-36.0) % RDW (11.8-14.1) % Plt Count (130-400) 10^3/uL MPV (8.0-11.0) fL Immature Gran % % Neutrophils % % Lymphocytes % % Monocytes % % Eosinophils % % Basophils % % Nucleated RBC % (0.0-0.3) % Absolute Neutrophils (1.2-6.7) 10^3/uL Absolute Lymphocytes (1.2-3.4) 10^3/uL Absolute Monocytes (0.1-0.8) 10^3/uL Absolute Eosinophils (0.0-0.7) 10^3/uL Absolute Basophils (0.0-0.2) 10^3/uL PT (9.1-11.1) sec INR (0.9-1.1) D-Dimer (<500) ng/mlFEU ABG Sample Site ABG pH (7.35-7.45) ABG pCO2 (35-45) mmHg ABG pO2 (80-105) mmHg ABG HCO3 (22-26) mmol/L ABG Total CO2 (23-27) mmol/L ABG O2 Saturation (95-98) % ABG Base Excess (-2-3) mmol/L VBG pH (7.31-7.41) Cancelled 7.22 L VBG pCO2 (41-51) mmHg Cancelled 83 H* VBG pO2 mmHg Cancelled 34 VBG HCO3 (23-28) mmol/L Cancelled 34 H VBG Total CO2 (24-29) mmol/L Cancelled 32 H VBG O2 Saturation % Cancelled 54 VBG Base Excess (-2-3) mmol/L Cancelled 6 H VBG Lactate (<or=2.0) mmol/L Oxygen Liter Flow L Sodium (136-145) mmol/L Potassium (3.5-5.1) mmol/L 5.0 Chloride (98-107) mmol/L Carbon Dioxide (20.0-31.0) mmol/L Anion Gap (3-11) mmol/L BUN (9-23) mg/dL Creatinine (0.73-1.18) mg/dL Est GFR (CKD-EPI 2020) (mL/min/1.73m2) Glucose (74-106) mg/dL Calcium (8.3-10.6) mg/dL Magnesium (1.6-2.6) mg/dL Total Bilirubin (0.2-1.2) mg/dL AST (<34) U/L ALT (10-49) U/L Alkaline Phosphatase (46-116) U/L Troponin I (<54) ng/L NT-Pro-B Natriuret Pep (<300) pg/mL Total Protein (5.7-8.2) g/dL Albumin (3.2-5.0) g/dL TSH (0.55-4.78) uIU/mL Urine Color (Yellow) Yellow Urine Clarity (Clear) Clear Urine pH (5-8) 5.5 Ur Specific [place] (1.005-1.025) 1.020 Urine Protein (Neg-Trace) mg/dL 30 H Urine Ketones (Negative) mg/dL Negative Urine Blood (Negative) Trace-intact H Urine Nitrite (Negative) Negative Urine Bilirubin (Negative) Negative Urine Urobilinogen (Up to 0.2) mg/dL 0.2 Ur Leukocyte Esterase (Negative) Negative Urine RBC (0-2) HPF 3-5 H Urine WBC (0-5) HPF Negative Ur Epithelial Cells (Negative) HPF Negative Urine Crystals (Negative) HPF Negative Urine Bacteria (Negative) HPF Rare Urine Casts (Negative) LPF Negative Urine Mucus (Negative) Negative Ur Culture Indicated? No Urine Glucose (Negative) mg/dL Negative COVID-19 Source SARS-CoV-2 (PCR) (Negative) Influenza Type A (PCR) (Negative) Influenza Type B (PCR) (Negative) RSV (PCR) (Negative) Add-On Test Request Range/Units 05/08/25 05/08/25 05/08/25 03:45 03:46 04:38 WBC (4.4-10.8) 10^3/uL RBC (4.36-5.78) 10^6/uL Hgb (13.5-17.5) g/dL Hct (40.0-50.0) % MCV (80-95) fL MCH (27.0-33.0) pg MCHC (32.0-36.0) % RDW (11.8-14.1) % Plt Count (130-400) 10^3/uL MPV (8.0-11.0) fL Immature Gran % % Neutrophils % % Lymphocytes % % Monocytes % % Eosinophils % % Basophils % % Nucleated RBC % (0.0-0.3) % Absolute Neutrophils (1.2-6.7) 10^3/uL Absolute Lymphocytes (1.2-3.4) 10^3/uL Absolute Monocytes (0.1-0.8) 10^3/uL Absolute Eosinophils (0.0-0.7) 10^3/uL Absolute Basophils (0.0-0.2) 10^3/uL PT (9.1-11.1) sec INR (0.9-1.1) D-Dimer (<500) ng/mlFEU ABG Sample Site ABG pH (7.35-7.45) ABG pCO2 (35-45) mmHg ABG pO2 (80-105) mmHg ABG HCO3 (22-26) mmol/L ABG Total CO2 (23-27) mmol/L ABG O2 Saturation (95-98) % ABG Base Excess (-2-3) mmol/L VBG pH (7.31-7.41) Cancelled 7.23 L VBG pCO2 (41-51) mmHg Cancelled 88 H* VBG pO2 mmHg Cancelled 28 VBG HCO3 (23-28) mmol/L Cancelled 37 H VBG Total CO2 (24-29) mmol/L Cancelled 34 H VBG O2 Saturation % Cancelled 43 VBG Base Excess (-2-3) mmol/L Cancelled 10 H VBG Lactate (<or=2.0) mmol/L Oxygen Liter Flow L Sodium (136-145) mmol/L Potassium (3.5-5.1) mmol/L Chloride (98-107) mmol/L Carbon Dioxide (20.0-31.0) mmol/L Anion Gap (3-11) mmol/L BUN (9-23) mg/dL Creatinine (0.73-1.18) mg/dL Est GFR (CKD-EPI 2020) (mL/min/1.73m2) Glucose (74-106) mg/dL Calcium (8.3-10.6) mg/dL Magnesium (1.6-2.6) mg/dL Total Bilirubin (0.2-1.2) mg/dL AST (<34) U/L ALT (10-49) U/L Alkaline Phosphatase (46-116) U/L Troponin I (<54) ng/L 17 NT-Pro-B Natriuret Pep (<300) pg/mL Total Protein (5.7-8.2) g/dL Albumin (3.2-5.0) g/dL TSH (0.55-4.78) uIU/mL Urine Color (Yellow) Urine Clarity (Clear) Urine pH (5-8) Ur Specific [place] (1.005-1.025) Urine Protein (Neg-Trace) mg/dL Urine Ketones (Negative) mg/dL Urine Blood (Negative) Urine Nitrite (Negative) Urine Bilirubin (Negative) Urine Urobilinogen (Up to 0.2) mg/dL Ur Leukocyte Esterase (Negative) Urine RBC (0-2) HPF Urine WBC (0-5) HPF Ur Epithelial Cells (Negative) HPF Urine Crystals (Negative) HPF Urine Bacteria (Negative) HPF Urine Casts (Negative) LPF Urine Mucus (Negative) Ur Culture Indicated? Urine Glucose (Negative) mg/dL COVID-19 Source SARS-CoV-2 (PCR) (Negative) Influenza Type A (PCR) (Negative) Influenza Type B (PCR) (Negative) RSV (PCR) (Negative) Add-On Test Request Cancelled Range/Units 05/08/25 05/08/25 05/08/25 04:45 05:45 05:47 WBC (4.4-10.8) 10^3/uL RBC (4.36-5.78) 10^6/uL Hgb (13.5-17.5) g/dL Hct (40.0-50.0) % MCV (80-95) fL MCH (27.0-33.0) pg MCHC (32.0-36.0) % RDW (11.8-14.1) % Plt Count (130-400) 10^3/uL MPV (8.0-11.0) fL Immature Gran % % Neutrophils % % Lymphocytes % % Monocytes % % Eosinophils % % Basophils % % Nucleated RBC % (0.0-0.3) % Absolute Neutrophils (1.2-6.7) 10^3/uL Absolute Lymphocytes (1.2-3.4) 10^3/uL Absolute Monocytes (0.1-0.8) 10^3/uL Absolute Eosinophils (0.0-0.7) 10^3/uL Absolute Basophils (0.0-0.2) 10^3/uL PT (9.1-11.1) sec INR (0.9-1.1) D-Dimer (<500) ng/mlFEU ABG Sample Site ABG pH (7.35-7.45) ABG pCO2 (35-45) mmHg ABG pO2 (80-105) mmHg ABG HCO3 (22-26) mmol/L ABG Total CO2 (23-27) mmol/L ABG O2 Saturation (95-98) % ABG Base Excess (-2-3) mmol/L VBG pH (7.31-7.41) Cancelled Cancelled 7.28 L VBG pCO2 (41-51) mmHg Cancelled Cancelled 80 H* VBG pO2 mmHg Cancelled Cancelled 27 VBG HCO3 (23-28) mmol/L Cancelled Cancelled 38 H VBG Total CO2 (24-29) mmol/L Cancelled Cancelled 35 H VBG O2 Saturation % Cancelled Cancelled 44 VBG Base Excess (-2-3) mmol/L Cancelled Cancelled 11 H VBG Lactate (<or=2.0) mmol/L Oxygen Liter Flow L Sodium (136-145) mmol/L Potassium (3.5-5.1) mmol/L Chloride (98-107) mmol/L Carbon Dioxide (20.0-31.0) mmol/L Anion Gap (3-11) mmol/L BUN (9-23) mg/dL Creatinine (0.73-1.18) mg/dL Est GFR (CKD-EPI 2020) (mL/min/1.73m2) Glucose (74-106) mg/dL Calcium (8.3-10.6) mg/dL Magnesium (1.6-2.6) mg/dL Total Bilirubin (0.2-1.2) mg/dL AST (<34) U/L ALT (10-49) U/L Alkaline Phosphatase (46-116) U/L Troponin I (<54) ng/L NT-Pro-B Natriuret Pep (<300) pg/mL Total Protein (5.7-8.2) g/dL Albumin (3.2-5.0) g/dL TSH (0.55-4.78) uIU/mL Urine Color (Yellow) Urine Clarity (Clear) Urine pH (5-8) Ur Specific [place] (1.005-1.025) Urine Protein (Neg-Trace) mg/dL Urine Ketones (Negative) mg/dL Urine Blood (Negative) Urine Nitrite (Negative) Urine Bilirubin (Negative) Urine Urobilinogen (Up to 0.2) mg/dL Ur Leukocyte Esterase (Negative) Urine RBC (0-2) HPF Urine WBC (0-5) HPF Ur Epithelial Cells (Negative) HPF Urine Crystals (Negative) HPF Urine Bacteria (Negative) HPF Urine Casts (Negative) LPF Urine Mucus (Negative) Ur Culture Indicated? Urine Glucose (Negative) mg/dL COVID-19 Source SARS-CoV-2 (PCR) (Negative) Influenza Type A (PCR) (Negative) Influenza Type B (PCR) (Negative) RSV (PCR) (Negative) Add-On Test Request Range/Units 05/08/25 05/08/25 05/08/25 06:30 06:45 06:57 WBC (4.4-10.8) 10^3/uL RBC (4.36-5.78) 10^6/uL Hgb (13.5-17.5) g/dL Hct (40.0-50.0) % MCV (80-95) fL MCH (27.0-33.0) pg MCHC (32.0-36.0) % RDW (11.8-14.1) % Plt Count (130-400) 10^3/uL MPV (8.0-11.0) fL Immature Gran % % Neutrophils % % Lymphocytes % % Monocytes % % Eosinophils % % Basophils % % Nucleated RBC % (0.0-0.3) % Absolute Neutrophils (1.2-6.7) 10^3/uL Absolute Lymphocytes (1.2-3.4) 10^3/uL Absolute Monocytes (0.1-0.8) 10^3/uL Absolute Eosinophils (0.0-0.7) 10^3/uL Absolute Basophils (0.0-0.2) 10^3/uL PT (9.1-11.1) sec INR (0.9-1.1) D-Dimer (<500) ng/mlFEU ABG Sample Site ABG pH (7.35-7.45) ABG pCO2 (35-45) mmHg ABG pO2 (80-105) mmHg ABG HCO3 (22-26) mmol/L ABG Total CO2 (23-27) mmol/L ABG O2 Saturation (95-98) % ABG Base Excess (-2-3) mmol/L VBG pH (7.31-7.41) Cancelled Cancelled 7.35 VBG pCO2 (41-51) mmHg Cancelled Cancelled 66 H* VBG pO2 mmHg Cancelled Cancelled 43 VBG HCO3 (23-28) mmol/L Cancelled Cancelled 36 H VBG Total CO2 (24-29) mmol/L Cancelled Cancelled 32 H VBG O2 Saturation % Cancelled Cancelled 78 VBG Base Excess (-2-3) mmol/L Cancelled Cancelled 11 H VBG Lactate (<or=2.0) mmol/L Oxygen Liter Flow L Sodium (136-145) mmol/L Potassium (3.5-5.1) mmol/L Chloride (98-107) mmol/L Carbon Dioxide (20.0-31.0) mmol/L Anion Gap (3-11) mmol/L BUN (9-23) mg/dL Creatinine (0.73-1.18) mg/dL Est GFR (CKD-EPI 2020) (mL/min/1.73m2) Glucose (74-106) mg/dL Calcium (8.3-10.6) mg/dL Magnesium (1.6-2.6) mg/dL Total Bilirubin (0.2-1.2) mg/dL AST (<34) U/L ALT (10-49) U/L Alkaline Phosphatase (46-116) U/L Troponin I (<54) ng/L NT-Pro-B Natriuret Pep (<300) pg/mL Total Protein (5.7-8.2) g/dL Albumin (3.2-5.0) g/dL TSH (0.55-4.78) uIU/mL Urine Color (Yellow) Urine Clarity (Clear) Urine pH (5-8) Ur Specific [place] (1.005-1.025) Urine Protein (Neg-Trace) mg/dL Urine Ketones (Negative) mg/dL Urine Blood (Negative) Urine Nitrite (Negative) Urine Bilirubin (Negative) Urine Urobilinogen (Up to 0.2) mg/dL Ur Leukocyte Esterase (Negative) Urine RBC (0-2) HPF Urine WBC (0-5) HPF Ur Epithelial Cells (Negative) HPF Urine Crystals (Negative) HPF Urine Bacteria (Negative) HPF Urine Casts (Negative) LPF Urine Mucus (Negative) Ur Culture Indicated? Urine Glucose (Negative) mg/dL COVID-19 Source SARS-CoV-2 (PCR) (Negative) Influenza Type A (PCR) (Negative) Influenza Type B (PCR) (Negative) RSV (PCR) (Negative) Add-On Test Request Range/Units 05/08/25 05/08/25 05/08/25 07:45 08:45 09:45 WBC (4.4-10.8) 10^3/uL RBC (4.36-5.78) 10^6/uL Hgb (13.5-17.5) g/dL Hct (40.0-50.0) % MCV (80-95) fL MCH (27.0-33.0) pg MCHC (32.0-36.0) % RDW (11.8-14.1) % Plt Count (130-400) 10^3/uL MPV (8.0-11.0) fL Immature Gran % % Neutrophils % % Lymphocytes % % Monocytes % % Eosinophils % % Basophils % % Nucleated RBC % (0.0-0.3) % Absolute Neutrophils (1.2-6.7) 10^3/uL Absolute Lymphocytes (1.2-3.4) 10^3/uL Absolute Monocytes (0.1-0.8) 10^3/uL Absolute Eosinophils (0.0-0.7) 10^3/uL Absolute Basophils (0.0-0.2) 10^3/uL PT (9.1-11.1) sec INR (0.9-1.1) D-Dimer (<500) ng/mlFEU ABG Sample Site ABG pH (7.35-7.45) ABG pCO2 (35-45) mmHg ABG pO2 (80-105) mmHg ABG HCO3 (22-26) mmol/L ABG Total CO2 (23-27) mmol/L ABG O2 Saturation (95-98) % ABG Base Excess (-2-3) mmol/L VBG pH (7.31-7.41) Cancelled Cancelled Cancelled VBG pCO2 (41-51) mmHg Cancelled Cancelled Cancelled VBG pO2 mmHg Cancelled Cancelled Cancelled VBG HCO3 (23-28) mmol/L Cancelled Cancelled Cancelled VBG Total CO2 (24-29) mmol/L Cancelled Cancelled Cancelled VBG O2 Saturation % Cancelled Cancelled Cancelled VBG Base Excess (-2-3) mmol/L Cancelled Cancelled Cancelled VBG Lactate (<or=2.0) mmol/L Oxygen Liter Flow L Sodium (136-145) mmol/L Potassium (3.5-5.1) mmol/L Chloride (98-107) mmol/L Carbon Dioxide (20.0-31.0) mmol/L Anion Gap (3-11) mmol/L BUN (9-23) mg/dL Creatinine (0.73-1.18) mg/dL Est GFR (CKD-EPI 2020) (mL/min/1.73m2) Glucose (74-106) mg/dL Calcium (8.3-10.6) mg/dL Magnesium (1.6-2.6) mg/dL Total Bilirubin (0.2-1.2) mg/dL AST (<34) U/L ALT (10-49) U/L Alkaline Phosphatase (46-116) U/L Troponin I (<54) ng/L NT-Pro-B Natriuret Pep (<300) pg/mL Total Protein (5.7-8.2) g/dL Albumin (3.2-5.0) g/dL TSH (0.55-4.78) uIU/mL Urine Color (Yellow) Urine Clarity (Clear) Urine pH (5-8) Ur Specific [place] (1.005-1.025) Urine Protein (Neg-Trace) mg/dL Urine Ketones (Negative) mg/dL Urine Blood (Negative) Urine Nitrite (Negative) Urine Bilirubin (Negative) Urine Urobilinogen (Up to 0.2) mg/dL Ur Leukocyte Esterase (Negative) Urine RBC (0-2) HPF Urine WBC (0-5) HPF Ur Epithelial Cells (Negative) HPF Urine Crystals (Negative) HPF Urine Bacteria (Negative) HPF Urine Casts (Negative) LPF Urine Mucus (Negative) Ur Culture Indicated? Urine Glucose (Negative) mg/dL COVID-19 Source SARS-CoV-2 (PCR) (Negative) Influenza Type A (PCR) (Negative) Influenza Type B (PCR) (Negative) RSV (PCR) (Negative) Add-On Test Request Range/Units 05/08/25 05/08/25 05/08/25 10:45 10:47 11:45 WBC (4.4-10.8) 10^3/uL RBC (4.36-5.78) 10^6/uL Hgb (13.5-17.5) g/dL Hct (40.0-50.0) % MCV (80-95) fL MCH (27.0-33.0) pg MCHC (32.0-36.0) % RDW (11.8-14.1) % Plt Count (130-400) 10^3/uL MPV (8.0-11.0) fL Immature Gran % % Neutrophils % % Lymphocytes % % Monocytes % % Eosinophils % % Basophils % % Nucleated RBC % (0.0-0.3) % Absolute Neutrophils (1.2-6.7) 10^3/uL Absolute Lymphocytes (1.2-3.4) 10^3/uL Absolute Monocytes (0.1-0.8) 10^3/uL Absolute Eosinophils (0.0-0.7) 10^3/uL Absolute Basophils (0.0-0.2) 10^3/uL PT (9.1-11.1) sec 17.1 H INR (0.9-1.1) 1.8 H D-Dimer (<500) ng/mlFEU ABG Sample Site ABG pH (7.35-7.45) ABG pCO2 (35-45) mmHg ABG pO2 (80-105) mmHg ABG HCO3 (22-26) mmol/L ABG Total CO2 (23-27) mmol/L ABG O2 Saturation (95-98) % ABG Base Excess (-2-3) mmol/L VBG pH (7.31-7.41) Cancelled 7.33 Cancelled VBG pCO2 (41-51) mmHg Cancelled 68 H* Cancelled VBG pO2 mmHg Cancelled 36 Cancelled VBG HCO3 (23-28) mmol/L Cancelled 36 H Cancelled VBG Total CO2 (24-29) mmol/L Cancelled 32 H Cancelled VBG O2 Saturation % Cancelled 66 Cancelled VBG Base Excess (-2-3) mmol/L Cancelled 10 H Cancelled VBG Lactate (<or=2.0) mmol/L Oxygen Liter Flow L Sodium (136-145) mmol/L Potassium (3.5-5.1) mmol/L Chloride (98-107) mmol/L Carbon Dioxide (20.0-31.0) mmol/L Anion Gap (3-11) mmol/L BUN (9-23) mg/dL Creatinine (0.73-1.18) mg/dL Est GFR (CKD-EPI 2020) (mL/min/1.73m2) Glucose (74-106) mg/dL Calcium (8.3-10.6) mg/dL Magnesium (1.6-2.6) mg/dL Total Bilirubin (0.2-1.2) mg/dL AST (<34) U/L ALT (10-49) U/L Alkaline Phosphatase (46-116) U/L Troponin I (<54) ng/L NT-Pro-B Natriuret Pep (<300) pg/mL Total Protein (5.7-8.2) g/dL Albumin (3.2-5.0) g/dL TSH (0.55-4.78) uIU/mL Urine Color (Yellow) Urine Clarity (Clear) Urine pH (5-8) Ur Specific [place] (1.005-1.025) Urine Protein (Neg-Trace) mg/dL Urine Ketones (Negative) mg/dL Urine Blood (Negative) Urine Nitrite (Negative) Urine Bilirubin (Negative) Urine Urobilinogen (Up to 0.2) mg/dL Ur Leukocyte Esterase (Negative) Urine RBC (0-2) HPF Urine WBC (0-5) HPF Ur Epithelial Cells (Negative) HPF Urine Crystals (Negative) HPF Urine Bacteria (Negative) HPF Urine Casts (Negative) LPF Urine Mucus (Negative) Ur Culture Indicated? Urine Glucose (Negative) mg/dL COVID-19 Source SARS-CoV-2 (PCR) (Negative) Influenza Type A (PCR) (Negative) Influenza Type B (PCR) (Negative) RSV (PCR) (Negative) Add-On Test Request Range/Units 05/08/25 05/08/25 05/08/25 12:45 13:45 14:45 WBC (4.4-10.8) 10^3/uL RBC (4.36-5.78) 10^6/uL Hgb (13.5-17.5) g/dL Hct (40.0-50.0) % MCV (80-95) fL MCH (27.0-33.0) pg MCHC (32.0-36.0) % RDW (11.8-14.1) % Plt Count (130-400) 10^3/uL MPV (8.0-11.0) fL Immature Gran % % Neutrophils % % Lymphocytes % % Monocytes % % Eosinophils % % Basophils % % Nucleated RBC % (0.0-0.3) % Absolute Neutrophils (1.2-6.7) 10^3/uL Absolute Lymphocytes (1.2-3.4) 10^3/uL Absolute Monocytes (0.1-0.8) 10^3/uL Absolute Eosinophils (0.0-0.7) 10^3/uL Absolute Basophils (0.0-0.2) 10^3/uL PT (9.1-11.1) sec INR (0.9-1.1) D-Dimer (<500) ng/mlFEU ABG Sample Site ABG pH (7.35-7.45) ABG pCO2 (35-45) mmHg ABG pO2 (80-105) mmHg ABG HCO3 (22-26) mmol/L ABG Total CO2 (23-27) mmol/L ABG O2 Saturation (95-98) % ABG Base Excess (-2-3) mmol/L VBG pH (7.31-7.41) Cancelled Cancelled Cancelled VBG pCO2 (41-51) mmHg Cancelled Cancelled Cancelled VBG pO2 mmHg Cancelled Cancelled Cancelled VBG HCO3 (23-28) mmol/L Cancelled Cancelled Cancelled VBG Total CO2 (24-29) mmol/L Cancelled Cancelled Cancelled VBG O2 Saturation % Cancelled Cancelled Cancelled VBG Base Excess (-2-3) mmol/L Cancelled Cancelled Cancelled VBG Lactate (<or=2.0) mmol/L Oxygen Liter Flow L Sodium (136-145) mmol/L Potassium (3.5-5.1) mmol/L Chloride (98-107) mmol/L Carbon Dioxide (20.0-31.0) mmol/L Anion Gap (3-11) mmol/L BUN (9-23) mg/dL Creatinine (0.73-1.18) mg/dL Est GFR (CKD-EPI 2020) (mL/min/1.73m2) Glucose (74-106) mg/dL Calcium (8.3-10.6) mg/dL Magnesium (1.6-2.6) mg/dL Total Bilirubin (0.2-1.2) mg/dL AST (<34) U/L ALT (10-49) U/L Alkaline Phosphatase (46-116) U/L Troponin I (<54) ng/L NT-Pro-B Natriuret Pep (<300) pg/mL Total Protein (5.7-8.2) g/dL Albumin (3.2-5.0) g/dL TSH (0.55-4.78) uIU/mL Urine Color (Yellow) Urine Clarity (Clear) Urine pH (5-8) Ur Specific [place] (1.005-1.025) Urine Protein (Neg-Trace) mg/dL Urine Ketones (Negative) mg/dL Urine Blood (Negative) Urine Nitrite (Negative) Urine Bilirubin (Negative) Urine Urobilinogen (Up to 0.2) mg/dL Ur Leukocyte Esterase (Negative) Urine RBC (0-2) HPF Urine WBC (0-5) HPF Ur Epithelial Cells (Negative) HPF Urine Crystals (Negative) HPF Urine Bacteria (Negative) HPF Urine Casts (Negative) LPF Urine Mucus (Negative) Ur Culture Indicated? Urine Glucose (Negative) mg/dL COVID-19 Source SARS-CoV-2 (PCR) (Negative) Influenza Type A (PCR) (Negative) Influenza Type B (PCR) (Negative) RSV (PCR) (Negative) Add-On Test Request Range/Units 05/08/25 05/08/25 05/08/25 14:59 15:45 16:45 WBC (4.4-10.8) 10^3/uL RBC (4.36-5.78) 10^6/uL Hgb (13.5-17.5) g/dL Hct (40.0-50.0) % MCV (80-95) fL MCH (27.0-33.0) pg MCHC (32.0-36.0) % RDW (11.8-14.1) % Plt Count (130-400) 10^3/uL MPV (8.0-11.0) fL Immature Gran % % Neutrophils % % Lymphocytes % % Monocytes % % Eosinophils % % Basophils % % Nucleated RBC % (0.0-0.3) % Absolute Neutrophils (1.2-6.7) 10^3/uL Absolute Lymphocytes (1.2-3.4) 10^3/uL Absolute Monocytes (0.1-0.8) 10^3/uL Absolute Eosinophils (0.0-0.7) 10^3/uL Absolute Basophils (0.0-0.2) 10^3/uL PT (9.1-11.1) sec INR (0.9-1.1) D-Dimer (<500) ng/mlFEU ABG Sample Site ABG pH (7.35-7.45) ABG pCO2 (35-45) mmHg ABG pO2 (80-105) mmHg ABG HCO3 (22-26) mmol/L ABG Total CO2 (23-27) mmol/L ABG O2 Saturation (95-98) % ABG Base Excess (-2-3) mmol/L VBG pH (7.31-7.41) 7.27 L Cancelled Cancelled VBG pCO2 (41-51) mmHg 79 H* Cancelled Cancelled VBG pO2 mmHg 38 Cancelled Cancelled VBG HCO3 (23-28) mmol/L 36 H Cancelled Cancelled VBG Total CO2 (24-29) mmol/L 33 H Cancelled Cancelled VBG O2 Saturation % 66 Cancelled Cancelled VBG Base Excess (-2-3) mmol/L 10 H Cancelled Cancelled VBG Lactate (<or=2.0) mmol/L Oxygen Liter Flow L Sodium (136-145) mmol/L Potassium (3.5-5.1) mmol/L Chloride (98-107) mmol/L Carbon Dioxide (20.0-31.0) mmol/L Anion Gap (3-11) mmol/L BUN (9-23) mg/dL Creatinine (0.73-1.18) mg/dL Est GFR (CKD-EPI 2020) (mL/min/1.73m2) Glucose (74-106) mg/dL Calcium (8.3-10.6) mg/dL Magnesium (1.6-2.6) mg/dL Total Bilirubin (0.2-1.2) mg/dL AST (<34) U/L ALT (10-49) U/L Alkaline Phosphatase (46-116) U/L Troponin I (<54) ng/L NT-Pro-B Natriuret Pep (<300) pg/mL Total Protein (5.7-8.2) g/dL Albumin (3.2-5.0) g/dL TSH (0.55-4.78) uIU/mL Urine Color (Yellow) Urine Clarity (Clear) Urine pH (5-8) Ur Specific [place] (1.005-1.025) Urine Protein (Neg-Trace) mg/dL Urine Ketones (Negative) mg/dL Urine Blood (Negative) Urine Nitrite (Negative) Urine Bilirubin (Negative) Urine Urobilinogen (Up to 0.2) mg/dL Ur Leukocyte Esterase (Negative) Urine RBC (0-2) HPF Urine WBC (0-5) HPF Ur Epithelial Cells (Negative) HPF Urine Crystals (Negative) HPF Urine Bacteria (Negative) HPF Urine Casts (Negative) LPF Urine Mucus (Negative) Ur Culture Indicated? Urine Glucose (Negative) mg/dL COVID-19 Source SARS-CoV-2 (PCR) (Negative) Influenza Type A (PCR) (Negative) Influenza Type B (PCR) (Negative) RSV (PCR) (Negative) Add-On Test Request Range/Units 05/08/25 05/08/25 05/08/25 17:45 18:45 19:45 WBC (4.4-10.8) 10^3/uL RBC (4.36-5.78) 10^6/uL Hgb (13.5-17.5) g/dL Hct (40.0-50.0) % MCV (80-95) fL MCH (27.0-33.0) pg MCHC (32.0-36.0) % RDW (11.8-14.1) % Plt Count (130-400) 10^3/uL MPV (8.0-11.0) fL Immature Gran % % Neutrophils % % Lymphocytes % % Monocytes % % Eosinophils % % Basophils % % Nucleated RBC % (0.0-0.3) % Absolute Neutrophils (1.2-6.7) 10^3/uL Absolute Lymphocytes (1.2-3.4) 10^3/uL Absolute Monocytes (0.1-0.8) 10^3/uL Absolute Eosinophils (0.0-0.7) 10^3/uL Absolute Basophils (0.0-0.2) 10^3/uL PT (9.1-11.1) sec INR (0.9-1.1) D-Dimer (<500) ng/mlFEU ABG Sample Site ABG pH (7.35-7.45) ABG pCO2 (35-45) mmHg ABG pO2 (80-105) mmHg ABG HCO3 (22-26) mmol/L ABG Total CO2 (23-27) mmol/L ABG O2 Saturation (95-98) % ABG Base Excess (-2-3) mmol/L VBG pH (7.31-7.41) Cancelled Cancelled Cancelled VBG pCO2 (41-51) mmHg Cancelled Cancelled Cancelled VBG pO2 mmHg Cancelled Cancelled Cancelled VBG HCO3 (23-28) mmol/L Cancelled Cancelled Cancelled VBG Total CO2 (24-29) mmol/L Cancelled Cancelled Cancelled VBG O2 Saturation % Cancelled Cancelled Cancelled VBG Base Excess (-2-3) mmol/L Cancelled Cancelled Cancelled VBG Lactate (<or=2.0) mmol/L Oxygen Liter Flow L Sodium (136-145) mmol/L Potassium (3.5-5.1) mmol/L Chloride (98-107) mmol/L Carbon Dioxide (20.0-31.0) mmol/L Anion Gap (3-11) mmol/L BUN (9-23) mg/dL Creatinine (0.73-1.18) mg/dL Est GFR (CKD-EPI 2020) (mL/min/1.73m2) Glucose (74-106) mg/dL Calcium (8.3-10.6) mg/dL Magnesium (1.6-2.6) mg/dL Total Bilirubin (0.2-1.2) mg/dL AST (<34) U/L ALT (10-49) U/L Alkaline Phosphatase (46-116) U/L Troponin I (<54) ng/L NT-Pro-B Natriuret Pep (<300) pg/mL Total Protein (5.7-8.2) g/dL Albumin (3.2-5.0) g/dL TSH (0.55-4.78) uIU/mL Urine Color (Yellow) Urine Clarity (Clear) Urine pH (5-8) Ur Specific [place] (1.005-1.025) Urine Protein (Neg-Trace) mg/dL Urine Ketones (Negative) mg/dL Urine Blood (Negative) Urine Nitrite (Negative) Urine Bilirubin (Negative) Urine Urobilinogen (Up to 0.2) mg/dL Ur Leukocyte Esterase (Negative) Urine RBC (0-2) HPF Urine WBC (0-5) HPF Ur Epithelial Cells (Negative) HPF Urine Crystals (Negative) HPF Urine Bacteria (Negative) HPF Urine Casts (Negative) LPF Urine Mucus (Negative) Ur Culture Indicated? Urine Glucose (Negative) mg/dL COVID-19 Source SARS-CoV-2 (PCR) (Negative) Influenza Type A (PCR) (Negative) Influenza Type B (PCR) (Negative) RSV (PCR) (Negative) Add-On Test Request Range/Units 05/08/25 05/08/25 05/08/25 20:45 21:45 22:40 WBC (4.4-10.8) 10^3/uL RBC (4.36-5.78) 10^6/uL Hgb (13.5-17.5) g/dL Hct (40.0-50.0) % MCV (80-95) fL MCH (27.0-33.0) pg MCHC (32.0-36.0) % RDW (11.8-14.1) % Plt Count (130-400) 10^3/uL MPV (8.0-11.0) fL Immature Gran % % Neutrophils % % Lymphocytes % % Monocytes % % Eosinophils % % Basophils % % Nucleated RBC % (0.0-0.3) % Absolute Neutrophils (1.2-6.7) 10^3/uL Absolute Lymphocytes (1.2-3.4) 10^3/uL Absolute Monocytes (0.1-0.8) 10^3/uL Absolute Eosinophils (0.0-0.7) 10^3/uL Absolute Basophils (0.0-0.2) 10^3/uL PT (9.1-11.1) sec INR (0.9-1.1) D-Dimer (<500) ng/mlFEU ABG Sample Site ABG pH (7.35-7.45) ABG pCO2 (35-45) mmHg ABG pO2 (80-105) mmHg ABG HCO3 (22-26) mmol/L ABG Total CO2 (23-27) mmol/L ABG O2 Saturation (95-98) % ABG Base Excess (-2-3) mmol/L VBG pH (7.31-7.41) Cancelled Cancelled 7.39 VBG pCO2 (41-51) mmHg Cancelled Cancelled 55 H VBG pO2 mmHg Cancelled Cancelled 40 VBG HCO3 (23-28) mmol/L Cancelled Cancelled 33 H VBG Total CO2 (24-29) mmol/L Cancelled Cancelled 30 H VBG O2 Saturation % Cancelled Cancelled 79 VBG Base Excess (-2-3) mmol/L Cancelled Cancelled 8 H VBG Lactate (<or=2.0) mmol/L Oxygen Liter Flow L Sodium (136-145) mmol/L Potassium (3.5-5.1) mmol/L Chloride (98-107) mmol/L Carbon Dioxide (20.0-31.0) mmol/L Anion Gap (3-11) mmol/L BUN (9-23) mg/dL Creatinine (0.73-1.18) mg/dL Est GFR (CKD-EPI 2020) (mL/min/1.73m2) Glucose (74-106) mg/dL Calcium (8.3-10.6) mg/dL Magnesium (1.6-2.6) mg/dL Total Bilirubin (0.2-1.2) mg/dL AST (<34) U/L ALT (10-49) U/L Alkaline Phosphatase (46-116) U/L Troponin I (<54) ng/L NT-Pro-B Natriuret Pep (<300) pg/mL Total Protein (5.7-8.2) g/dL Albumin (3.2-5.0) g/dL TSH (0.55-4.78) uIU/mL Urine Color (Yellow) Urine Clarity (Clear) Urine pH (5-8) Ur Specific [place] (1.005-1.025) Urine Protein (Neg-Trace) mg/dL Urine Ketones (Negative) mg/dL Urine Blood (Negative) Urine Nitrite (Negative) Urine Bilirubin (Negative) Urine Urobilinogen (Up to 0.2) mg/dL Ur Leukocyte Esterase (Negative) Urine RBC (0-2) HPF Urine WBC (0-5) HPF Ur Epithelial Cells (Negative) HPF Urine Crystals (Negative) HPF Urine Bacteria (Negative) HPF Urine Casts (Negative) LPF Urine Mucus (Negative) Ur Culture Indicated? Urine Glucose (Negative) mg/dL COVID-19 Source SARS-CoV-2 (PCR) (Negative) Influenza Type A (PCR) (Negative) Influenza Type B (PCR) (Negative) RSV (PCR) (Negative) Add-On Test Request Range/Units 05/08/25 05/08/25 05/09/25 22:45 23:45 05:40 WBC (4.4-10.8) 10^3/uL 8.17 RBC (4.36-5.78) 10^6/uL 4.67 Hgb (13.5-17.5) g/dL 14.3 Hct (40.0-50.0) % 47.6 MCV (80-95) fL 102 H MCH (27.0-33.0) pg 30.6 MCHC (32.0-36.0) % 30.0 L RDW (11.8-14.1) % 14.1 Plt Count (130-400) 10^3/uL 106 L MPV (8.0-11.0) fL 11.5 H Immature Gran % % Neutrophils % % Lymphocytes % % Monocytes % % Eosinophils % % Basophils % % Nucleated RBC % (0.0-0.3) % Absolute Neutrophils (1.2-6.7) 10^3/uL Absolute Lymphocytes (1.2-3.4) 10^3/uL Absolute Monocytes (0.1-0.8) 10^3/uL Absolute Eosinophils (0.0-0.7) 10^3/uL Absolute Basophils (0.0-0.2) 10^3/uL PT (9.1-11.1) sec INR (0.9-1.1) D-Dimer (<500) ng/mlFEU ABG Sample Site ABG pH (7.35-7.45) ABG pCO2 (35-45) mmHg ABG pO2 (80-105) mmHg ABG HCO3 (22-26) mmol/L ABG Total CO2 (23-27) mmol/L ABG O2 Saturation (95-98) % ABG Base Excess (-2-3) mmol/L VBG pH (7.31-7.41) Cancelled Cancelled VBG pCO2 (41-51) mmHg Cancelled Cancelled VBG pO2 mmHg Cancelled Cancelled VBG HCO3 (23-28) mmol/L Cancelled Cancelled VBG Total CO2 (24-29) mmol/L Cancelled Cancelled VBG O2 Saturation % Cancelled Cancelled VBG Base Excess (-2-3) mmol/L Cancelled Cancelled VBG Lactate (<or=2.0) mmol/L Oxygen Liter Flow L Sodium (136-145) mmol/L 140 Potassium (3.5-5.1) mmol/L 4.5 Chloride (98-107) mmol/L 97 L Carbon Dioxide (20.0-31.0) mmol/L 38.0 H Anion Gap (3-11) mmol/L 4.7 BUN (9-23) mg/dL 37 H Creatinine (0.73-1.18) mg/dL 1.37 H Est GFR (CKD-EPI 2020) (mL/min/1.73m2) 50.44 Glucose (74-106) mg/dL 117 H Calcium (8.3-10.6) mg/dL 8.0 L Magnesium (1.6-2.6) mg/dL 1.9 Total Bilirubin (0.2-1.2) mg/dL 0.6 AST (<34) U/L 18 ALT (10-49) U/L < 7 L Alkaline Phosphatase (46-116) U/L 82 Troponin I (<54) ng/L NT-Pro-B Natriuret Pep (<300) pg/mL Total Protein (5.7-8.2) g/dL 6.5 Albumin (3.2-5.0) g/dL 3.8 TSH (0.55-4.78) uIU/mL Urine Color (Yellow) Urine Clarity (Clear) Urine pH (5-8) Ur Specific [place] (1.005-1.025) Urine Protein (Neg-Trace) mg/dL Urine Ketones (Negative) mg/dL Urine Blood (Negative) Urine Nitrite (Negative) Urine Bilirubin (Negative) Urine Urobilinogen (Up to 0.2) mg/dL Ur Leukocyte Esterase (Negative) Urine RBC (0-2) HPF Urine WBC (0-5) HPF Ur Epithelial Cells (Negative) HPF Urine Crystals (Negative) HPF Urine Bacteria (Negative) HPF Urine Casts (Negative) LPF Urine Mucus (Negative) Ur Culture Indicated? Urine Glucose (Negative) mg/dL COVID-19 Source SARS-CoV-2 (PCR) (Negative) Influenza Type A (PCR) (Negative) Influenza Type B (PCR) (Negative) RSV (PCR) (Negative) Add-On Test Request Range/Units 05/09/25 05/09/25 05/10/25 07:53 08:52 05:20 WBC (4.4-10.8) 10^3/uL 8.59 RBC (4.36-5.78) 10^6/uL 4.54 Hgb (13.5-17.5) g/dL 13.6 Hct (40.0-50.0) % 44.6 MCV (80-95) fL 98 H D MCH (27.0-33.0) pg 30.0 MCHC (32.0-36.0) % 30.5 L RDW (11.8-14.1) % 13.8 Plt Count (130-400) 10^3/uL 91 L MPV (8.0-11.0) fL 12.4 H Immature Gran % % Neutrophils % % Lymphocytes % % Monocytes % % Eosinophils % % Basophils % % Nucleated RBC % (0.0-0.3) % Absolute Neutrophils (1.2-6.7) 10^3/uL Absolute Lymphocytes (1.2-3.4) 10^3/uL Absolute Monocytes (0.1-0.8) 10^3/uL Absolute Eosinophils (0.0-0.7) 10^3/uL Absolute Basophils (0.0-0.2) 10^3/uL PT (9.1-11.1) sec INR (0.9-1.1) D-Dimer (<500) ng/mlFEU ABG Sample Site Right Radial ABG pH (7.35-7.45) 7.31 L ABG pCO2 (35-45) mmHg 72 H* ABG pO2 (80-105) mmHg 62 L ABG HCO3 (22-26) mmol/L 37 H ABG Total CO2 (23-27) mmol/L 33 H ABG O2 Saturation (95-98) % 92 L ABG Base Excess (-2-3) mmol/L 10 H VBG pH (7.31-7.41) 7.24 L VBG pCO2 (41-51) mmHg 92 H* VBG pO2 mmHg 24 VBG HCO3 (23-28) mmol/L 39 H VBG Total CO2 (24-29) mmol/L 36 H VBG O2 Saturation % 35 VBG Base Excess (-2-3) mmol/L 12 H VBG Lactate (<or=2.0) mmol/L Oxygen Liter Flow L 4 Sodium (136-145) mmol/L 138 Potassium (3.5-5.1) mmol/L 4.4 Chloride (98-107) mmol/L 96 L Carbon Dioxide (20.0-31.0) mmol/L 35.5 H Anion Gap (3-11) mmol/L 6.6 BUN (9-23) mg/dL 39 H Creatinine (0.73-1.18) mg/dL 1.27 H Est GFR (CKD-EPI 2020) (mL/min/1.73m2) 55.05 Glucose (74-106) mg/dL 110 H Calcium (8.3-10.6) mg/dL 8.8 Magnesium (1.6-2.6) mg/dL 1.9 Total Bilirubin (0.2-1.2) mg/dL 0.7 AST (<34) U/L 19 ALT (10-49) U/L < 7 L Alkaline Phosphatase (46-116) U/L 86 Troponin I (<54) ng/L NT-Pro-B Natriuret Pep (<300) pg/mL Total Protein (5.7-8.2) g/dL 6.4 Albumin (3.2-5.0) g/dL 3.9 TSH (0.55-4.78) uIU/mL Urine Color (Yellow) Urine Clarity (Clear) Urine pH (5-8) Ur Specific [place] (1.005-1.025) Urine Protein (Neg-Trace) mg/dL Urine Ketones (Negative) mg/dL Urine Blood (Negative) Urine Nitrite (Negative) Urine Bilirubin (Negative) Urine Urobilinogen (Up to 0.2) mg/dL Ur Leukocyte Esterase (Negative) Urine RBC (0-2) HPF Urine WBC (0-5) HPF Ur Epithelial Cells (Negative) HPF Urine Crystals (Negative) HPF Urine Bacteria (Negative) HPF Urine Casts (Negative) LPF Urine Mucus (Negative) Ur Culture Indicated? Urine Glucose (Negative) mg/dL COVID-19 Source SARS-CoV-2 (PCR) (Negative) Influenza Type A (PCR) (Negative) Influenza Type B (PCR) (Negative) RSV (PCR) (Negative) Add-On Test Request Range/Units 05/11/25 05:45 WBC (4.4-10.8) 10^3/uL 7.81 RBC (4.36-5.78) 10^6/uL 4.44 Hgb (13.5-17.5) g/dL 13.4 L Hct (40.0-50.0) % 43.3 MCV (80-95) fL 98 H MCH (27.0-33.0) pg 30.2 MCHC (32.0-36.0) % 30.9 L RDW (11.8-14.1) % 14.0 Plt Count (130-400) 10^3/uL 102 L MPV (8.0-11.0) fL 12.0 H Immature Gran % % Neutrophils % % Lymphocytes % % Monocytes % % Eosinophils % % Basophils % % Nucleated RBC % (0.0-0.3) % Absolute Neutrophils (1.2-6.7) 10^3/uL Absolute Lymphocytes (1.2-3.4) 10^3/uL Absolute Monocytes (0.1-0.8) 10^3/uL Absolute Eosinophils (0.0-0.7) 10^3/uL Absolute Basophils (0.0-0.2) 10^3/uL PT (9.1-11.1) sec INR (0.9-1.1) D-Dimer (<500) ng/mlFEU ABG Sample Site ABG pH (7.35-7.45) ABG pCO2 (35-45) mmHg ABG pO2 (80-105) mmHg ABG HCO3 (22-26) mmol/L ABG Total CO2 (23-27) mmol/L ABG O2 Saturation (95-98) % ABG Base Excess (-2-3) mmol/L VBG pH (7.31-7.41) VBG pCO2 (41-51) mmHg VBG pO2 mmHg VBG HCO3 (23-28) mmol/L VBG Total CO2 (24-29) mmol/L VBG O2 Saturation % VBG Base Excess (-2-3) mmol/L VBG Lactate (<or=2.0) mmol/L Oxygen Liter Flow L Sodium (136-145) mmol/L 138 Potassium (3.5-5.1) mmol/L 4.6 Chloride (98-107) mmol/L 96 L Carbon Dioxide (20.0-31.0) mmol/L 36.7 H Anion Gap (3-11) mmol/L 4.8 BUN (9-23) mg/dL 34 H Creatinine (0.73-1.18) mg/dL 1.09 Est GFR (CKD-EPI 2020) (mL/min/1.73m2) 65.67 Glucose (74-106) mg/dL 117 H Calcium (8.3-10.6) mg/dL 8.8 Magnesium (1.6-2.6) mg/dL 1.8 Total Bilirubin (0.2-1.2) mg/dL 0.7 AST (<34) U/L 26 ALT (10-49) U/L 9 L Alkaline Phosphatase (46-116) U/L 80 Troponin I (<54) ng/L NT-Pro-B Natriuret Pep (<300) pg/mL Total Protein (5.7-8.2) g/dL 6.7 Albumin (3.2-5.0) g/dL 3.9 TSH (0.55-4.78) uIU/mL Urine Color (Yellow) Urine Clarity (Clear) Urine pH (5-8) Ur Specific [place] (1.005-1.025) Urine Protein (Neg-Trace) mg/dL Urine Ketones (Negative) mg/dL Urine Blood (Negative) Urine Nitrite (Negative) Urine Bilirubin (Negative) Urine Urobilinogen (Up to 0.2) mg/dL Ur Leukocyte Esterase (Negative) Urine RBC (0-2) HPF Urine WBC (0-5) HPF Ur Epithelial Cells (Negative) HPF Urine Crystals (Negative) HPF Urine Bacteria (Negative) HPF Urine Casts (Negative) LPF Urine Mucus (Negative) Ur Culture Indicated? Urine Glucose (Negative) mg/dL COVID-19 Source SARS-CoV-2 (PCR) (Negative) Influenza Type A (PCR) (Negative) Influenza Type B (PCR) (Negative) RSV (PCR) (Negative) Add-On Test Request Imaging Chest x-ray: report reviewed and image reviewed
[2025-05-12] MEDS: Rivaroxaban 10 MG TABLET 20 MG PO (08:34)
[2025-05-12] MEDS: Losartan 50 MG TAB PO (08:34)
[2025-05-12] MEDS: DULoxetine 30 MG CAP 60 MG PO ×2 (08:36→20:47)
[2025-05-12] MEDS: Levothyroxine 25 MCG TAB PO (08:36)
[2025-05-12] MEDS: Vitamin E 400 UNITS CAP PO ×2 (08:36→20:46)
[2025-05-12] MEDS: rOPINIRole 0.25 MG TAB PO ×3 (08:36→20:46)
[2025-05-12] MEDS: Cyanocobalamin 500 MCG TAB 1000 MCG PO (08:37)
[2025-05-12] MEDS: Mirabegron 25 MG TABCR PO (08:37)
[2025-05-12] MEDS: Memantine 5 MG TAB 10 MG PO ×2 (08:37→20:47)
[2025-05-12] MEDS: Pregabalin 100 MG CAP PO ×3 (08:38→20:47)
[2025-05-12] MEDS: Refresh PLUS Eye Drops 0.4ml 1 EACH OP ×3 (08:38→20:47)
[2025-05-12] MEDS: Furosemide 40 MG/4 ML VIAL IVP ×2 (08:39→14:33)
[2025-05-12] MEDS: Normal Saline Flush 10 ML SYR IVP ×2 (08:39→20:48)
[2025-05-12] MEDS: Olopatadine 0.1% OPHTH SOL 5 ML BTL 1 ML OP (08:40)
--- NOTE | 2025-05-12 08:48 | PTTR_ITS ---
PT Notes Visit Reasons: Acute Hypoxic and Hypercapnic Respiratory Failure, Date: 05/12/2025 PRECAUTIONS: Fall, Standard, Activity as tolerated. SUBJECTIVE: Pt in bed when approached for therapy this morning, pt requested to transfer from bed to recliner so he could eat his breakfast. pt was seen for a second session later in the morning, pt agreed to participating with therapy intervention. OBJECTIVE: ?Telemetry, 2L O2 support NC ? PAIN: denies VITALS: Monitored by nursing Therapeutic Activities 32267: Direct one-on-one instruction in dynamic activities to improve functional performance. ?? BED MOBILITY/TRANSFERS? Rolling L/R: supervision Supine-sit: ? min A? Sit-supine: ? min A? Sit-stand: ? CGA? Stand-sit: ??CGA ? Bed-Chair:? ?CGA ? Chair-bed: CGA Provided skilled cues and instruction on performance and technique throughout. Gait Training 09863: Direct one-on-one instruction and skilled instruction in: Employing an assistive device Modified weight-bearing status Movement sequencing Turning and movement with proper form Provided verbal cues for equipment management and technique Provided instruction in gait pattern Patient education regarding pacing and breathing techniques to maximize activity tolerance? GAIT? Assistive Device: ?? FWW? Weight bearing: FWB Assist: CGA ? Distance:??200'x2 ? Deviation: Stoop forward, low step height, short step length, slow jose speed.? STAIRS:? 6 steps 2x bilateral handrail, step gait pattern CGA? Neuromuscular Re-education 78942: Activities that facilitate re-education of movement balance, posture, coordination, and proprioception or kinesthetic sense, requiring skilled tactile and verbal cues Exercises/techniques: ??Unsupported sitting 5mins, multi directional weight shif ting FWD/BWD, side to side, Standing balance activity doing multidirectional reach, static. ? ASSESSMENT:?pt had to use the toilet after session to do a bowel movement, there was hematochezia which was brought to nurse Jb's attention for monitoring. pt situated in recliner for comfort and safety post session. PLAN: Continue with balance training, global strengthening and general conditioning for improved safety, mobility and activity tolerance until pt is ready for DC. TREATMENT CODE/TIME: [id number] 20mins (8:20-8:40am) [id number], [id number] 35mins (9:20-9:55am)
[2025-05-12 09:04] LABS: HCT 43.8 % (40.0-50.0); HGB 13.4 g/dL (13.5-17.5); MCH 30.0 pg (27.0-33.0); MCHC 30.6 % (32.0-36.0); MCV 98 fL (80-95); MPV 12.1 fL (8.0-11.0); Platelet Count 105 10^3/uL (130-400); RBC 4.47 10^6/uL (4.36-5.78); RDW 14.1 % (11.8-14.1); RDW-SD 50.6 fL; WBC 7.18 10^3/uL (4.4-10.8)
[2025-05-12 09:05] LABS: Anion Gap 4.9 mmol/L (3-11); BUN 32 mg/dL (9-23); CO2 37.6 mmol/L (20.0-31.0); Calcium 8.8 mg/dL (8.3-10.6); Chloride 96 mmol/L (98-107); Glucose 121 mg/dL (74-106); Magnesium 2.0 mg/dL (1.6-2.6); Potassium 5.1 mmol/L (3.5-5.1); Sodium 139 mmol/L (136-145)
--- NOTE | 2025-05-12 10:02 | CMPROGNOTE_ITS ---
Date of service: 05/12/25 Time of Service: 10:02 Care Management Progress Note Progress Note Text Progress Note Text: Venkata continues to slowly improve. He has been able to maintain his oxygen saturation in the 90s at times on room air, although, with activity, it can drop into the 80s requiring the use of 1-2 L/min of nasal oxygen. Dr. Mojica has recommended a Trilogy for Venkata and the paperwork was submitted today. Once it is approved and the equipment is delivered, he can return to the [facility]. ESTEFANIA spoke with Kylie Reid, health and safety trainer at the facility, about discharge. She shared that they would be able to accept him back either tomorrow (Friday) or Friday, just not on the weekend. Kylie also shared that it is imperative that Venkata be able to handle his oxygen equipment on his own. The staff can assist but the expectation is that he handle it himself. Venkata will need an exercise oximetry test prior to discharge to determine what his new home O2 need will be. When CM met with Venkata he was pleasant and agreeable to conversation. He is feeling be tter and looking forward to returning to his residence at the [facility]. he was very disappointed when CM informed him it may be Friday. Discharge Potential Discharge Needs: PCP F/U Appt Anticipated Barriers to Discharge: Medical Status Patient/Family Education Needs: Review discharge instructions, discuss Ask Me Three Transportation: [facility] Plan: Anticipate Venkata will return to the [facility] when medically stable. He will hopefully have a new NIV (Trilogy) machine and be taught how to use it prior to discharge. He will have new home health PT and will transport via RCT or with staff. Venkata will follow up with his community providers and plan of care. CM will follow and continue to assess for discharge needs. Social Determinants of Health Screening Social Determinants of health last assessed in clinic: 05/12/25 Will the Patient Participate in the Screening?: Yes Do you worry about having a steady place to live?: no Problems where you live: no known problems In the past 12 months, have you had to go without electric, gas, oil or water in your home?: no 1. Within the past 12 months, we worried whether our food would run out before we got money to buy more.: Never true 2. Within the past 12 months, the food we bought just didn't last and we didn't have money to get more.: Never true Has lack of transportation kept you from medical appointments or from doing thin gs needed for daily living?: no Has anyone in your life made you feel unsafe or unsupported?: no How hard is it for you to pay for the very basics like food, housing, medical care, and heating? Would you say it is:: Not hard at all Do you want help finding or keeping work or a job?: I do not need or want help If for any reason you need help with day-to-day activities such as bathing, preparing meals, shopping, managing finances, etc., do you get the help you need?: I don?t need any help How often do you feel lonely or isolated from those around you?: Rarely Do you speak a language other than Mauritanian at home?: No Comments: Pt resides at the [facility] Health Related Social Needs Health related social needs: feeling lonely/isolated (Z60.8) Health related social needs details: n/a
[2025-05-12 11:33] LABS: BE (Venous) 15 mmol/L (-2-3); HCO3 (Venous) 40 mmol/L (23-28); TCO2 (Venous) 36 mmol/L (24-29); pO2 (Venous) 31 mmHg
[2025-05-12 11:37] LABS: pCO2 (Venous) 66 mmHg (41-51)
[2025-05-12] MEDS: Insulin Aspart 300 UNITS/3 ML PEN SC (12:42)
--- NOTE | 2025-05-12 15:36 | CHAPLAIN ---
Venkata was resting in the recliner when I visited. He told me that he lives at [facility], and likes it there. He's been using a BiPap at night here and needs to be able to put that on and off by himself and deal with it during the night in order to get back to [place], he said. His son and daughter were both in to visit today. Venkata said the staff here have been very kind. He looks forward to returning to [place] though.
--- NOTE | 2025-05-12 20:09 | PGE_ITS ---
Date of Service Date of service: 05/12/25 Time of Service: 08:00 Assessment and Plan Assessment and plan (1) Acute respiratory failure with hypoxia and hypercarbia: Start date: 05/08/25 Status: Acute Assessment and plan: Appreciate Dr Mojica (pulmonology) consult Volatile CO2 in ABG/VBG not apparently related to bipap use / nonuse COPD exacerbation less likely than pulmonary edema, consider new HF Echocardiogram completed, read not available Diuresis with IV furosemide Dr Mojica is arranging home noninvasive ventilation. Will need PFTs (2) Congestive heart failure: Start date: 05/08/25 Status: Chronic Assessment and plan: Echo with EF 55-60% in atrial fibrillation, severe right atrial dilation, moderately elevated right side pressures Continue home rivaroxaban (3) CONCHITA (acute kidney injury): Start date: 05/08/25 Status: Resolved Assessment and plan: Elevated creatinine 1.64->1.37->1.27 -> 1.09 against normal baseline, resolved Continue diuresis, monitor UO (4) Hyperkalemia: Start date: 05/08/25 Status: Resolved Assessment and plan: Repleted, resolved. (5) Pneumonia: Start date: 05/08/25 Assessment and plan: Broad spectrum antibiotics discontinued (6) Essential hypertension: Assessment and plan: Continue outpatient medical therapy and adjust as needed. (7) Atrial fibrillation: Assessment and plan: Continue outpatient medical therapy along with oral anticoagulant with no evidence of acute hemorrhage. (8) Alzheimer dementia: Status: Chronic Assessment and plan: Continue outpatient treatment with Aricept and Namenda. He appears to be functioning fairly well with this problem. (9) Chronic obstructive lung disease: Assessment and plan: Patient is a remote smoker but not on inhalers recently. There is some evidence of chronic CO2 retention on his chemistries. Nebulizer treatments with DuoNeb while hospitalized though he does not have overt wheeze. (10) Diabetes mellitus: Assessment and plan: Hold outpatient medical therapy with glucometers before meals and at bedtime and moderate sliding scale coverage with his meals. (11) Neuropathy: Status: Chronic Assessment and plan: Continue outpatient medical therapy. (12) Hypothyroidism: Status: Chronic Assessment and plan: Continue outpatient supplement therapy. (13) PLMD (periodic limb movement disorder): Status: Chronic Assessment and plan: Continue outpatient medical therapy. (14) Depression: Status: Chronic Assessment and plan: This appears stable, continue outpatient medical therapy. Subjective Subjective Interval history since last seen: Mr. Kay is awake and alert. No new complaints. Awaiting NIV, to be in- house for training prior to discharge back to [place]. Exam Narrative Exam Narrative: General: This is a pleasant man in no distress HEENT: Normocephalic, atraumatic CV: irregular rate and irregular rhythm, no murmur Resp: Diminished breath sounds bilaterally on bipap Abd: soft, NTND MSK: voluntary motion x4 Neuro: awake, alert, no focal deficits Objective Last Vital Signs Temp 37.3 C 05/12/25 19:22 Pulse 107 H 05/12/25 19:22 Resp 18 05/12/25 19:22 BP 105/63 05/12/25 19:22 Pulse Ox 87 L 05/12/25 19:22 Laboratory Results - last 24 hr 05/12/25 05/12/25 05:35 07:07 WBC 7.18 RBC 4.47 Hgb 13.4 L Hct 43.8 MCV 98 H MCH 30.0 MCHC 30.6 L RDW 14.1 Plt Count 105 L MPV 12.1 H VBG pH 7.39 VBG pCO2 66 H* VBG pO2 31 VBG HCO3 40 H VBG Total CO2 36 H VBG O2 Saturation VBG Base Excess 15 H Sodium 139 Potassium 5.1 Chloride 96 L Carbon Dioxide 37.6 H Anion Gap 4.9 BUN 32 H Creatinine 1.08 Est GFR (CKD-EPI 2020) 71.12 Glucose 121 H Calcium 8.8 Magnesium 2.0 VTE Prohylaxis Risk Level: Moderate/High Risk Contraindications: Medical contrainidcation (Risk of falls with low platelet count,on Xarelto) Prophylaxis: Mechanical Time Spent with Patient Time Spent with Patient: 25-34 minutes Time was spent: preparing to see the patient(eg.review tests), obtaining and/or reviewing separately otained hiistory, ordering medications,tests, procedures, referring, communicating with other health home visit field care manager, indepentently interpreting results, counseling the patient and care coordination
[2025-05-12] MEDS: Pravastatin 40 MG TAB PO (20:46)
[2025-05-12] MEDS: traZODone 100 MG TAB PO (20:46)
[2025-05-12] MEDS: Donepezil 5 MG TAB 10 MG PO (20:46)
[2025-05-13] VITALS (8 sets, daily range): BP systolic 92–121; BP diastolic 43–73; PULSE 85–99; RESP 16–27; TEMP 36–36.6; O2SAT 88–100
[2025-05-13] MEDS: Levothyroxine 25 MCG TAB PO (05:48)
[2025-05-13] MEDS: Insulin Aspart 300 UNITS/3 ML PEN SC ×3 (08:04→16:55)
[2025-05-13] MEDS: Cyanocobalamin 500 MCG TAB 1000 MCG PO (09:04)
[2025-05-13] MEDS: DULoxetine 30 MG CAP 60 MG PO ×2 (09:04→20:54)
[2025-05-13] MEDS: Mirabegron 25 MG TABCR PO (09:04)
[2025-05-13] MEDS: Pregabalin 100 MG CAP PO ×3 (09:05→20:53)
[2025-05-13] MEDS: Rivaroxaban 10 MG TABLET 20 MG PO (09:05)
--- NOTE | 2025-05-13 09:05 | PTTR_ITS ---
PT Notes Visit Reasons: Acute Hypoxic and Hypercapnic Respiratory Failure, Date: 05/13/2025 PRECAUTIONS: Fall, Standard, Activity as tolerated. SUBJECTIVE: Pt in recliner when approached for therapy this morning, pt still finishing his breakfast but was looking forward to session after he gets done with breakfast. OBJECTIVE: ?monitored by nursing, DC'd on O2 support? PAIN: denies VITALS: Monitored by nursing Therapeutic Activities 41901: Direct one-on-one instruction in dynamic activities to improve functional performance. ?? BED MOBILITY/TRANSFERS? Sit-stand: ? SBA ? Stand-sit: ??SBA ? Bed-Chair:? ?SBA ? Chair-bed: SBA Provided skilled cues and instruction on performance and technique throughout. Gait Training 73700: Direct one-on-one instruction and skilled instruction in: Employing an assistive device Modified weight-bearing status Movement sequencing Turning and movement with proper form Provided verbal cues for equipment management and technique Provided instruction in gait pattern Patient education regarding pacing and breathing techniques to maximize activity tolerance? GAIT? Assistive Device: ?? FWW? Weight bearing: FWB Assist: SBA? Distance:??300' WC follow ? Deviation: Stoop forward, low step height, short step length, slow jose speed.? Neuromuscular Re-education 39901: Activities that facilitate re- education of movement balance, posture, coordination, and proprioception or kinesthetic sense, requiring skilled tactile and verbal cues Exercises/techniques: ??Unsupported sitting 5mins, multi directional weight shifting FWD/BWD, side to side, Standing balance activity static no UE support 1st 2.30 mins, 2nd 2.45mins ? ASSESSMENT:?Pt cue for reaching behind during stand to siit for safety with transfers. pt situated in recliner for comfort and call espino post session. PLAN: Continue with balance training, global strengthening and general conditioning for improved safety, mobility and activity tolerance until pt is ready for DC. TREATMENT CODE/TIME: [id number], [id number] 30mins (8:30-9:00am)
[2025-05-13] MEDS: Losartan 50 MG TAB PO (09:06)
[2025-05-13] MEDS: Furosemide 40 MG TAB PO ×2 (09:06→16:55)
[2025-05-13] MEDS: Normal Saline Flush 10 ML SYR IVP ×2 (09:06→20:54)
[2025-05-13] MEDS: Memantine 5 MG TAB 10 MG PO ×2 (09:06→20:53)
[2025-05-13] MEDS: Vitamin E 400 UNITS CAP PO ×2 (09:06→20:52)
[2025-05-13] MEDS: Refresh PLUS Eye Drops 0.4ml 1 EACH OP ×3 (09:06→20:52)
[2025-05-13] MEDS: rOPINIRole 0.25 MG TAB PO ×3 (09:06→20:52)
--- NOTE | 2025-05-13 10:07 | PDOC.CMPRO ---
Date of service: 05/13/25 Time of Service: 10:07 Care Management Progress Note Progress Note Text Progress Note Text: Venktaa will likely not be discharged until Friday. Pulmonology office is working on getting Venkata bipap for home, and it doesn't look like it can be coordinated until Friday. CM has been in contact with the office, RT, and BARBARA Melendez at the [facility]. [facility] would like all staff to encourage Venkata to try to make adjustments to his mask when needed, and to be as independent as possible while in the hospital. Yes, the machine is a bit different, but fostering independence with the mask, and wearing it for napping should be encouraged. [facility] is also requesting that they get some kind of head's up on discharge. They will need to know how large an area is needed for set up, etc. Venkata was up in the chair when CM met with him today. His son, Juni, was visiting. Both men were very pleasant with CM. Venkata is very disappointed that he will not be able to discharge until Friday, but will do his best to stay upbeat. He was reminded that he will need to be fairly independent with his new bipap. Juni is hoping that we can coordinate that he can be here for teaching from [facility] on Friday. Discharge Potential Discharge Needs: PCP F/U Appt and Other (pulmonology f/u ) Anticipated Barriers to Discharge: Other (delay in obtaining NIV) Patient/Family Education Needs: Review discharge instructions, discuss Ask Me Three Transportation: RCT (vs. facility transport) Plan: Anticipate Venkata will return to the [facility] when medically stable. He will have NIV set up for him at the [facility] on Friday. He will have new home health PT and will transport with his son. Venkata will follow up with his community providers and plan of care. CM will follow and continue to assess for discharge needs. Social Determinants of Health Screening Social Determinants of health last assessed in clinic: 05/13/25 Will the Patient Participate in the Screening?: Yes Do you worry about having a steady place to live?: no Problems where you live: no known problems In the past 12 months, have you had to go without electric, gas, oil or water in your home?: no 1. Within the past 12 months, we worried whether our food would run out before we got money to buy more.: Don't know/refused 2. Within the past 12 months, the food we bought just didn't last and we didn't have money to get more.: Don't know/refused Has lack of transportation kept you from medical appointments or from doing things needed for daily living?: no Has anyone in your life made you feel unsafe or unsupported?: no How hard is it for you to pay for the very basics like food, housing, medical care, and heating? Would you say it is:: Not hard at all Do you want help finding or keeping work or a job?: I do not need or want help If for any reason you need help with day-to-day activities such as bathing, preparing meals, shopping, managing finances, etc., do you get the help you need?: I don?t need any help How often do you feel lonely or isolated from those around you?: Rarely Do you speak a language other than Danish at home?: No Comments: Pt resides at the [facility] Health Related Social Needs Health related social needs: feeling lonely/isolated (Z60.8) Health related social needs details: n/a
[2025-05-13] MEDS: Ergocalciferol 50000 UNITS CAP PO (12:01)
[2025-05-13] MEDS: Olopatadine 0.1% OPHTH SOL 5 ML BTL 1 ML OP (12:01)
--- NOTE | 2025-05-13 13:40 | TELEFU_ITS ---
Documented by User: Ranjan Donovan 05/13/25 14:37 Date of service: 05/13/25 Time of Service: 14:00 Nutrition Note NOTE: M, 74. 183 cm. 136 kg. 40.8 kg/m^2. IBW = 77.6 kg. Estimated nutritional needs: 2773 kcal/day (MSJ; Out of bed, ambulatory). Recommend ~500 kcal deficit (2,273 kcal/day). Fluid needs: 2,773 mL/day (1mL/kcal). Protein needs: 116-155 g/day (1.5-2 g/kg IBW). Patient admitted with respiratory complications. During his stay, the patient has consumed 100% at all meals, reflecting no issue with appetite or intake. The patient's weight has remained relatively steady with a slight uptrend from 122 kg on 10/05/24 to 136 kg on 05/13/25, reflecting an 11% increase in ~7 months. Finger stick blood glucose was recorded high on 05/13 at 229 mg/dL. His A1c was last recorded high at 6.8 on 08/16/24. Hgb was recorded low on 05/13 at 13.4. Patient utilizes weighted silverware to assist with ease of eating due to motor issues. Patient was visited by nutrition department on 05/13/2025. The patient reported satisfaction with meals during his stay. The patient accepted an offer for a fruit smoothie made at lunch and/or dinner. The patient is type II diabetic. Outside of the hospital, the patient reported living at the [facility], where his blood glucose is monitored via a daily finger prick at 5:30 AM. Outside of the hospital, his blood glucose is only measured once per day. The patient reported a stable meal situation in his living situation, receiving and enjoying three meals per day. The patient reported no issues with masticating, swallowing, or bowel movements. He declined meeting with the Dietitian and had no further questions regarding his nutrition. No NFPE was performed, but the patient appears adequately nourished. Will offer outpatient nutritional counseling in stable health. Nutrition dx: Class 3 obesity in the context of excessive oral intake. Time Spent in Nutritional Counseling and Treatment: 10 min Documented by User: Kyaw Dinh RDN 05/16/25 09:14 Nutrition Note NOTE: 74yo male. 183 cm. 136 kg. BMI-40.8 IBW = 77.6 kg. Ajbw: 101kg Estimated nutritional needs: 2773 kcal/day (MSJ; Out of bed, ambulatory). Recommend ~500 kcal deficit (2,273 kcal/day). Fluid needs: 2,773 mL/day (1mL/kcal). Protein needs: 121-151 g/day (1.2-1.5 g/kg AjBW). Patient admitted with respiratory complications. During his stay, the patient has consumed 100% at all meals, reflecting no issue with appetite or intake. The patient's weight has remained relatively steady with a slight up-trend from 122 kg on 10/05/24 to 136 kg on 05/13/25, reflecting an 11% increase in ~7 months. Finger stick blood glucose was recorded high on 05/13 at 229 mg/dL. His A1c was last recorded high at 6.8 on 08/16/24. Hgb was recorded low on 05/13 at 13.4. Patient utilizes weighted silverware to assist with ease of eating due to motor issues. Patient was visited by nutrition department on 05/13/2025. The patient reported satisfaction with meals during his stay. The patient accepted an offer for a fruit smoothie made at lunch and/or dinner. The patient is type II diabetic. Outside of the hospital, the patient reported living at the [facility], where his blood glucose is monitored via a daily finger prick at 5:30 AM. Outside of the hospital, his blood glucose is only measured once per day. The patient reported a stable meal situation in his living situation, receiving and enjoying three meals per day. The patient reported no issues with masticating, swallowing, or bowel movements. He declined meeting with the Dietitian and had no further questions regarding his nutrition. No NFPE was performed at the time of visit. Patient appearing adequately nourished. Nutrition dx: Class 3 obesity in the context of excessive oral intake AEB current BMI >40. Intervention: No aggressive nutrition intervention planned at this time. Will continue to visit pt, get preferences for meals, monitor weight, po intake, nutrition-related labs.
--- NOTE | 2025-05-13 13:56 | PT.INTREAT ---
PT Notes Visit Reasons: Acute Hypoxic and Hypercapnic Respiratory Failure, Inpatient Physical Therapy Treatment Note [facility] Date: 05/13/25 SUBJECTIVE: Venkata reports that he did well this am. He had just got settled this pm but willing to work with PT this pm. OBJECTIVE: []? PAIN: none VITALS: ?monitored by nsg. Therapeutic Activities (00588x9): Direct one-on-one instruction in dynamic activities to improve functional performance. ? BED MOBILITY/TRANSFERS?pt seated in recliner. ? Sit-stand: SBA? Stand-sit: SBA? Provided skilled cues and instruction on performance and technique throughout. GAIT? Assistive Device: FWW? Weight bearing: FWB Assist: SBA ? Distance:? approx 300'? Deviation: slow jose with shortened stride length.?WC to follow ? Provided skilled manual cues to facilitate proper muscle recruitment and/or form: [] Neuromuscular Re-education ([id number]): Activities that facilitate re-education of movement balance, posture, coordination, and proprioception or kinesthetic sense, requiring skilled tactile and verbal cues ? Exercises/techniques: worked on balance in standing, NBOS 2x 15 sec unsupported. Head nods up/down x5 and left/right x5ea. Sit to stand without UE x5. ? ASSESSMENT:? tolerated session quite well. He is nervous about falling. Like to have WC to follow just in case although he never needed to use it. He also was nervous to stand unsupported, but did well with that as well. PLAN: will continue to work on his strength and functional mobility following PT POC. TREATMENT CODE/TIME: 25 min this pm session [id number], [id number]
--- NOTE | 2025-05-13 17:50 | PGE_ITS ---
Date of Service Date of service: 05/13/25 Time of Service: 09:15 Assessment and Plan Assessment and plan (1) Acute respiratory failure with hypoxia and hypercarbia: Start date: 05/08/25 Status: Acute Assessment and plan: Appreciate Dr Mojica (pulmonology) consult Likely multifactorial. Treated for pneumonia, also diuresis for CHF, significant component of OHS as well as possible COPD. Dr Mojica's office is arranging home noninvasive ventilation, which he needs for discharge. Will need PFTs as outpatient (2) Congestive heart failure: Start date: 05/08/25 Status: Chronic Assessment and plan: Echo with EF 55-60% in atrial fibrillation, severe right atrial dilation, moderately elevated right side pressures with RVSP 53mmHg, IVC not plethoric on 05/09 echo. I think we can cut back diuresis to oral torsemide. (3) CONCHITA (acute kidney injury): Start date: 05/08/25 Status: Resolved Assessment and plan: Elevated creatinine 1.64->1.08 which is baseline. (4) Pneumonia: Start date: 05/08/25 Assessment and plan: s/p course of ceftriaxone/azithro (5) Essential hypertension: Assessment and plan: Continue outpatient medical therapy and adjust as needed. (6) Atrial fibrillation: Assessment and plan: Continue outpatient medical therapy along with oral anticoagulant with no evidence of acute hemorrhage. (7) Alzheimer dementia: Status: Chronic Assessment and plan: Continue outpatient treatment with Aricept and Namenda. He appears to be functioning fairly well with this problem. (8) Chronic obstructive lung disease: Assessment and plan: Presumed diagnosis, need PFTs to confirm. Patient is a remote smoker but not on inhalers recently. There is some evidence of chronic CO2 retention on his chemistries. (9) Diabetes mellitus: Assessment and plan: Holding outpatient medical therapy with glucometers before meals and at bedtime and moderate sliding scale coverage with his meals. (10) Neuropathy: Status: Chronic Assessment and plan: Continue outpatient medical therapy. (11) PLMD (periodic limb movement disorder): Status: Chronic Assessment and plan: Continue outpatient medical therapy. Discharge Planning Discharge Planning: home when he can get home BiPAP, likely 05/16 Subjective Subjective Patient reports: tolerating a regular diet and voiding w/o difficulty; denies diarrhea, vomiting, shortness of breath or fever Interval history since last seen: Working with PT He would like to go home. He is using BiPAP at night, able to sleep. Exam Narrative Exam Narrative: General: This is a pleasant man in no distress CV: irregular rate and irregular rhythm, no murmur Resp: On room air, diffusely diminished breath sounds bilaterally but symmetric, no rales/wheeze Abd: soft, NTND ext: 1+ fito ankle edema, not tender, warm. Neuro: awake, alert, no focal deficits Objective Last Vital Signs Temp 36.0 C L 05/13/25 14:59 Pulse 97 H 05/13/25 14:59 Resp 18 05/13/25 14:59 BP 108/71 05/13/25 14:59 Pulse Ox 88 L 05/13/25 14:59 Laboratory Results - last 24 hr 05/12/25 05:35 WBC 7.18 RBC 4.47 Hgb 13.4 L Hct 43.8 MCV 98 H MCH 30.0 MCHC 30.6 L RDW 14.1 Plt Count 105 L MPV 12.1 H Sodium 139 Potassium 5.1 Chloride 96 L Carbon Dioxide 37.6 H Anion Gap 4.9 BUN 32 H Creatinine 1.08 Est GFR (CKD-EPI 2020) 71.12 Glucose 121 H Calcium 8.8 Magnesium 2.0 VTE Prohylaxis Risk Level: Moderate/High Risk Contraindications: Medical contrainidcation (Risk of falls with low platelet count,on Xarelto) Prophylaxis: Mechanical Time Spent with Patient Time Spent with Patient: 35-49 minutes Time was spent: preparing to see the patient(eg.review tests), obtaining and/or reviewing separately otained hiistory, ordering medications,tests, procedures, referring, communicating with other health child adolescent care, indepentently interpreting results, counseling the patient and care coordination
[2025-05-13] MEDS: Donepezil 5 MG TAB 10 MG PO (20:52)
[2025-05-13] MEDS: Pravastatin 40 MG TAB PO (20:53)
[2025-05-13] MEDS: traZODone 100 MG TAB PO (20:54)
[2025-05-14] VITALS (9 sets, daily range): BP systolic 101–127; BP diastolic 36–91; PULSE 70–86; RESP 16–25; TEMP 36.1–36.9; O2SAT 89–94
[2025-05-14] MEDS: Levothyroxine 25 MCG TAB PO (05:37)
[2025-05-14 07:06] LABS: Anion Gap 8.2 mmol/L (3-11); BUN 31 mg/dL (9-23); CO2 34.2 mmol/L (20.0-31.0); Calcium 9.0 mg/dL (8.3-10.6); Chloride 97 mmol/L (98-107); Glucose 125 mg/dL (74-106); Potassium 4.1 mmol/L (3.5-5.1); Sodium 139 mmol/L (136-145)
[2025-05-14 07:07] LABS: Magnesium 2.0 mg/dL (1.6-2.6)
[2025-05-14] MEDS: Normal Saline Flush 10 ML SYR IVP ×2 (08:36→19:56)
[2025-05-14] MEDS: Olopatadine 0.1% OPHTH SOL 5 ML BTL 1 ML OP (08:37)
[2025-05-14] MEDS: DULoxetine 30 MG CAP 60 MG PO ×2 (08:37→19:54)
[2025-05-14] MEDS: Refresh PLUS Eye Drops 0.4ml 1 EACH OP ×3 (08:37→19:55)
[2025-05-14] MEDS: Rivaroxaban 10 MG TABLET 20 MG PO (08:38)
[2025-05-14] MEDS: Torsemide 20 MG TAB 40 MG PO (08:38)
[2025-05-14] MEDS: Memantine 5 MG TAB 10 MG PO ×2 (08:38→19:55)
[2025-05-14] MEDS: Vitamin E 400 UNITS CAP PO ×2 (08:38→19:55)
[2025-05-14] MEDS: Losartan 50 MG TAB PO (08:38)
[2025-05-14] MEDS: rOPINIRole 0.25 MG TAB PO ×3 (08:38→19:54)
[2025-05-14] MEDS: Cyanocobalamin 500 MCG TAB 1000 MCG PO (08:39)
[2025-05-14] MEDS: Mirabegron 25 MG TABCR PO (08:39)
[2025-05-14] MEDS: Pregabalin 100 MG CAP PO ×3 (08:39→19:54)
--- NOTE | 2025-05-14 10:08 | PT.INTREAT ---
PT Notes Visit Reasons: Acute Hypoxic and Hypercapnic Respiratory Failure, Inpatient Physical Therapy Treatment Note [facility] Date: 05/14/25 SUBJECTIVE: Venkata states that he was tired after yesterday's session, but overall felt good. States that he normally walks short distances at I (estimates ~50') independently with FWW. OBJECTIVE: ? PAIN: none VITALS: ?monitored by nsg. Therapeutic Exercises ([id number]): Direct one-on-one instruction in dynamic activities to improve functional performance. ?? Seated in recliner at initiation of session with legs elevated, heels suspended. ? BED MOBILITY/TRANSFERS? Sit-stand: SBA? Stand-sit: SBA? Provided skilled cues and instruction on performance and technique throughout. GAIT? Assistive Device: FWW? Weight bearing: FWB Assist: SBA ? Distance:?50'x2? Deviation: slow jose with shortened stride length.? Instructed in the following exercises: seated alternating arm and leg 30 seconds. Good dynamic sitting balance, but increasing RODRIGUEZ. SaO2 to 89% on room air, rapidly returning to 91% with rest seated LAQ 10x seated trunk rotation, with cone transfer side to side, 3x each sit-stand from 20 seat 5x static stand without UE support, 60 seconds, wide ROMAINE, CGA throughout standing hip AB with UE support to FWW 10x standing march 10x ? ASSESSMENT: Good tolerance to ambulation and progression of strengthening and balance retraining. PLAN: will continue to work on his strength and functional mobility following PT POC. TREATMENT CODE/TIME: 40 min ([id number])
[2025-05-14] MEDS: Insulin Aspart 300 UNITS/3 ML PEN SC (12:01)
--- NOTE | 2025-05-14 13:42 | PT.INTREAT ---
PT Notes Visit Reasons: Acute Hypoxic and Hypercapnic Respiratory Failure, Inpatient Physical Therapy Treatment Note [facility] Date: 05/14/25 (pm session) SUBJECTIVE: Venkata states that he is feeling good. He's anxious to walk again. OBJECTIVE: ? PAIN: none VITALS: ?monitored by nsg. Therapeutic Exercises ([id number]): Direct one-on-one instruction in dynamic activities to improve functional performance. ?? Seated in recliner at initiation of session with legs elevated, heels suspended. ? BED MOBILITY/TRANSFERS? Sit-stand: SBA? Stand-sit: SBA? Provided skilled cues and instruction on performance and technique throughout. GAIT? Assistive Device: FWW? Weight bearing: FWB Assist: SBA ? Distance:?150' ? Deviation: slow jose with shortened stride length.? Instructed in the following exercises: seated LAQ 10x standing diagonal reaches across body, min A at trunk, 10x sit-stand from 20 seat 5x static stand without UE support, 60 seconds, wide ROMAINE, CGA throughout standing march 10x ? ASSESSMENT: Good tolerance to ambulation and progression of strengthening and balance retraining. PLAN: will continue to work on his strength and functional mobility following PT POC. TREATMENT CODE/TIME: 35 min ([id number])
--- NOTE | 2025-05-14 14:11 | PGE_ITS ---
Date of Service Date of service: 05/14/25 Time of Service: 14:11 Assessment and Plan Assessment and plan (1) Acute respiratory failure with hypoxia and hypercarbia: Start date: 05/08/25 Status: Acute Assessment and plan: Appreciate Dr Mojica (pulmonology) consult Likely multifactorial. Treated for pneumonia, also diuresis for CHF, significant component of OHS as well as possible COPD. Dr Mojica's office is arranging home noninvasive ventilation, which he needs for discharge. Will need PFTs as outpatient (2) Congestive heart failure: Start date: 05/08/25 Status: Chronic Assessment and plan: Echo with EF 55-60% in atrial fibrillation, severe right atrial dilation, moderately elevated right side pressures with RVSP 53mmHg, IVC not plethoric on 05/09 echo. Transitioned to oral torsemide 05/14, weight and I/Os stable. (3) CONCHITA (acute kidney injury): Start date: 05/08/25 Status: Resolved Assessment and plan: Elevated creatinine on admission 1.64->1.1 which is baseline. Resolved. (4) Pneumonia: Start date: 05/08/25 Assessment and plan: s/p course of ceftriaxone/azithro (5) Essential hypertension: Assessment and plan: Continue outpatient medical therapy, at goal currently. (6) Atrial fibrillation: Assessment and plan: Continue oral anticoagulant. Not on rate/rhythm control (7) Chronic obstructive lung disease: Assessment and plan: Presumed diagnosis, need PFTs to confirm. Patient is a remote smoker but not on inhalers recently. There is some evidence of chronic CO2 retention on his chemistries but this could be OHS. (8) Diabetes mellitus: Assessment and plan: Holding outpatient medical therapy with glucometers before meals and at bedtime and moderate sliding scale coverage with his meals. Have been good other than midday today at 256. Discharge Planning Discharge Planning: home when he can get home BiPAP, likely 05/16 Subjective Subjective Patient reports: no new complaints, tolerating a regular diet and voiding w/o difficulty; denies nausea, vomiting, shortness of breath or fever Interval history since last seen: He feels well. Appetite not bad. Wearing BiPAP at night. Working with PT walking Exam Narrative Exam Narrative: General: A&O, pleasant, in no distress CV: irregular rate and irregular rhythm, no murmur Resp: On room air, diffusely diminished breath sounds bilaterally but symmetric, no rales/wheeze Abd: soft, NTND ext: trace ankle edema, not tender, warm. Neuro: awake, alert, no focal deficits Objective Last Vital Signs Temp 36.3 C L 05/14/25 11:07 Pulse 77 05/14/25 11:07 Resp 16 05/14/25 11:07 BP 127/82 05/14/25 11:07 Pulse Ox 89 L 05/14/25 11:07 Laboratory Results - last 24 hr 05/14/25 05:36 Sodium 139 Potassium 4.1 D Chloride 97 L Carbon Dioxide 34.2 H Anion Gap 8.2 BUN 31 H Creatinine 1.12 Est GFR (CKD-EPI 2020) 63.64 Glucose 125 H Calcium 9.0 Magnesium 2.0 VTE Prohylaxis Risk Level: Moderate/High Risk Contraindications: Medical contrainidcation (Risk of falls with low platelet count,on Xarelto) Prophylaxis: Mechanical Time Spent with Patient Time Spent with Patient: 25-34 minutes Time was spent: preparing to see the patient(eg.review tests), obtaining and/or reviewing separately otained hiistory, ordering medications,tests, procedures, referring, communicating with other health healthcare sales representative, indepentently interpreting results, counseling the patient and care coordination
[2025-05-14] MEDS: Donepezil 5 MG TAB 10 MG PO (19:54)
[2025-05-14] MEDS: Pravastatin 40 MG TAB PO (19:55)
[2025-05-14] MEDS: traZODone 100 MG TAB PO (19:55)
[2025-05-15] VITALS (8 sets, daily range): BP systolic 113–144; BP diastolic 67–90; PULSE 64–98; RESP 14–27; TEMP 36–36.6; O2SAT 90–95
[2025-05-15] MEDS: Levothyroxine 25 MCG TAB PO (05:09)
[2025-05-15] MEDS: Insulin Aspart 300 UNITS/3 ML PEN SC ×2 (08:47→12:09)
[2025-05-15] MEDS: Normal Saline Flush 10 ML SYR IVP ×2 (08:47→20:18)
[2025-05-15] MEDS: Vitamin E 400 UNITS CAP PO ×2 (08:48→20:16)
[2025-05-15] MEDS: Olopatadine 0.1% OPHTH SOL 5 ML BTL 1 ML OP (08:48)
[2025-05-15] MEDS: Pregabalin 100 MG CAP PO ×3 (08:48→20:17)
[2025-05-15] MEDS: DULoxetine 30 MG CAP 60 MG PO ×2 (08:48→20:16)
[2025-05-15] MEDS: Torsemide 20 MG TAB 40 MG PO (08:48)
[2025-05-15] MEDS: Refresh PLUS Eye Drops 0.4ml 1 EACH OP ×3 (08:48→20:17)
[2025-05-15] MEDS: Memantine 5 MG TAB 10 MG PO ×2 (08:49→20:16)
[2025-05-15] MEDS: rOPINIRole 0.25 MG TAB PO ×3 (08:49→20:16)
[2025-05-15] MEDS: Losartan 50 MG TAB PO (08:49)
[2025-05-15] MEDS: Rivaroxaban 10 MG TABLET 20 MG PO (08:49)
[2025-05-15] MEDS: Cyanocobalamin 500 MCG TAB 1000 MCG PO (08:49)
[2025-05-15] MEDS: Mirabegron 25 MG TABCR PO (08:49)
--- NOTE | 2025-05-15 09:34 | PTTR_ITS ---
PT Notes Visit Reasons: Acute Hypoxic and Hypercapnic Respiratory Failure, Inpatient Physical Therapy Treatment Note [facility] Date: 05/15/25 (am/pm sessions) SUBJECTIVE: Session 1: Venkata states that he is heading into the shower this morning. He's agreeable to walking down. Session 2: Venkata states that he is looking forward to doing more strengthening. He's looking forward to getting back to his exercise class at [facility] when he returns. OBJECTIVE: ? PAIN: none VITALS: ?monitored by nsg. Session 1: Therapeutic Exercises ([id number]): Direct one-on-one instruction in dynamic activities to improve functional performance. ?? Seated in recliner at initiation of session with legs elevated, heels suspended. ? BED MOBILITY/TRANSFERS? Sit-stand: SBA? Stand-sit: SBA? Provided skilled cues and instruction on performance and technique throughout. GAIT? Assistive Device: FWW? Weight bearing: FWB Assist: SBA ? Distance:?120' ? Deviation: wide ROMAINE, but good jose ? Session 2: Therapeutic Exercises ([id number]): Direct one-on-one instruction in dynamic activities to improve functional performance. ? Instructed in the following exercises for LE and core strengthening to improve gait and activity tolerance: sit-stand x 5, no UE support from 20 seat seated ball toss with weighted ball 2 minutes seated theraband rows, red band 20x standing hip AB 10x each, UE support to FWW? standing hip extension 10x each, UE support to FWW? standing march 10x each, UE support to FWW? HR 10x, UE support to FWW ? ? Provided skilled cues and instruction on performance and technique throughout. GAIT? Assistive Device: FWW? Weight bearing: FWB Assist: SBA ? Distance:?120' ? Deviation: wide ROMAINE, but good jose ? ASSESSMENT: Good tolerance to ambulation and progression of strengthening and balance retraining. PLAN: will continue to work on his strength and functional mobility following PT POC. TREATMENT CODE/TIME: Session 1: 15 min ([id number]) ([id number]) Session 2: 15 min ([id number]) ([id number])
--- NOTE | 2025-05-15 16:59 | PGE_ITS ---
Date of Service Date of service: 05/15/25 Time of Service: 17:00 Assessment and Plan Assessment and plan (1) Acute respiratory failure with hypoxia and hypercarbia: Start date: 05/08/25 Status: Acute Assessment and plan: Appreciate Dr Mojica (pulmonology) consult Likely multifactorial. Treated for pneumonia, also diuresis for CHF, significant component of OHS as well as possible COPD. He has improved and reached steady state. Dr Mojica's office is arranging home noninvasive ventilation, which he needs for discharge. Will need PFTs as outpatient (2) Congestive heart failure: Start date: 05/08/25 Status: Chronic Assessment and plan: Echo with EF 55-60% in atrial fibrillation, severe right atrial dilation, moderately elevated right side pressures with RVSP 53mmHg, IVC not plethoric on 05/09 echo. Transitioned to oral torsemide 05/14, weight and I/Os remain stable. (3) CONCHITA (acute kidney injury): Start date: 05/08/25 Status: Resolved Assessment and plan: Elevated creatinine on admission 1.64->1.1 which is baseline. Resolved. (4) Pneumonia: Start date: 05/08/25 Assessment and plan: s/p course of ceftriaxone/azithro (5) Essential hypertension: Assessment and plan: Continue outpatient medical therapy, at goal currently. (6) Atrial fibrillation: Assessment and plan: Continue oral anticoagulant. Not on rate/rhythm control (7) Chronic obstructive lung disease: Assessment and plan: Presumed diagnosis, need PFTs to confirm. Patient is a remote smoker but not on inhalers recently. There is some evidence of chronic CO2 retention on his chemistries but this could be OHS. Not active currently (8) Diabetes mellitus: Assessment and plan: Outpatient medical therapy is just [facility], which he missed 05/14. He should take when he gets home hopefully 05/16. Now with glucometers before meals and at bedtime and moderate sliding scale coverage with his meals. Some >200 05/14 but all >200 05/15. No change for now. Subjective Subjective Patient reports: no new complaints, tolerating a regular diet and voiding w/o difficulty; denies diarrhea, vomiting, shortness of breath or fever Interval history since last seen: No events, no new concerns. Still walking with PT. Wants to go home tomorrow. Exam Narrative Exam Narrative: General: A&O, pleasant, in no distress CV: irregular rate and irregular rhythm, no murmur Resp: On room air, diffusely diminished breath sounds bilaterally but symmetri c, no rales/wheeze Abd: soft, NTND ext: trace ankle edema, not tender, warm. Neuro: awake, alert, no focal deficits Objective Last Vital Signs Temp 36.6 C 05/15/25 15:09 Pulse 87 05/15/25 15:09 Resp 17 05/15/25 15:09 BP 134/88 05/15/25 15:09 Pulse Ox 90 L 05/15/25 15:09 VTE Prohylaxis Risk Level: Moderate/High Risk Contraindications: Medical contrainidcation (Risk of falls with low platelet count,on Xarelto) Prophylaxis: Mechanical Time Spent with Patient Time Spent with Patient: 25-34 minutes Time was spent: preparing to see the patient(eg.review tests), obtaining and/or reviewing separately otained hiistory, ordering medications,tests, procedures, referring, communicating with other health cardiac care unit nurse, indepentently interpreting results, counseling the patient and care coordination
[2025-05-15] MEDS: Donepezil 5 MG TAB 10 MG PO (20:16)
[2025-05-15] MEDS: Pravastatin 40 MG TAB PO (20:17)
[2025-05-15] MEDS: traZODone 100 MG TAB PO (20:18)
[2025-05-16 03:01] VITALS: RESP 16
[2025-05-16 05:35] VITALS: RESP 18
[2025-05-16] MEDS: Levothyroxine 25 MCG TAB PO (05:58)
[2025-05-16 06:45] LABS: Anion Gap 5.3 mmol/L (3-11); BUN 28 mg/dL (9-23); CO2 35.3 mmol/L (20.0-31.0); Calcium 8.5 mg/dL (8.3-10.6); Chloride 99 mmol/L (98-107); Glucose 121 mg/dL (74-106); Potassium 4.1 mmol/L (3.5-5.1); Sodium 140 mmol/L (136-145)
[2025-05-16 07:14] VITALS: BP 147/81; PULSE 86; RESP 20; TEMP 36.5; O2SAT 94
[2025-05-16] MEDS: Losartan 50 MG TAB PO (08:19)
[2025-05-16] MEDS: Rivaroxaban 10 MG TABLET 20 MG PO (08:20)
[2025-05-16] MEDS: Memantine 5 MG TAB 10 MG PO (08:21)
[2025-05-16] MEDS: rOPINIRole 0.25 MG TAB PO (08:21)
[2025-05-16] MEDS: Mirabegron 25 MG TABCR PO (08:21)
[2025-05-16] MEDS: Cyanocobalamin 500 MCG TAB 1000 MCG PO (08:21)
[2025-05-16] MEDS: DULoxetine 30 MG CAP 60 MG PO (08:22)
[2025-05-16] MEDS: Pregabalin 100 MG CAP PO (08:22)
[2025-05-16] MEDS: Torsemide 20 MG TAB 40 MG PO (08:22)
[2025-05-16] MEDS: Vitamin E 400 UNITS CAP PO (08:22)
[2025-05-16] MEDS: Normal Saline Flush 10 ML SYR IVP (08:23)
[2025-05-16] MEDS: Refresh PLUS Eye Drops 0.4ml 1 EACH OP (08:24)
[2025-05-16] MEDS: Olopatadine 0.1% OPHTH SOL 5 ML BTL 1 ML OP (08:24)
--- NOTE | 2025-05-16 11:14 | PT.INTREAT ---
PT Notes Visit Reasons: Acute Hypoxic and Hypercapnic Respiratory Failure, Inpatient Physical Therapy Treatment Note [facility] Date: 05/16/25 SUBJECTIVE: [place] much better. Denied pain in the back and B knees with today's walk. OBJECTIVE: ? PAIN: none VITALS: Oxygen saturation at rest 93% on RA, after walking 250 feet 94% on RA ? BED MOBILITY/TRANSFERS: ? Sit-stand stand by assist?with FWW Stand-sit stand by assist with FWW Bed-chair transfer stand by assist with FWW? GAIT? Assistive Device: FWW? Weight bearing: FWB Assist: SBA ? Distance:?250 feet? Deviation: Decreased step height and length. Wide ROMAINE. No SOB. No LOB ? THERA EX: One-on-one instruction on seated level exercises after walking: sit<>stand x 5 deep breathing exercises x 3 seated marches x 10 deep breathing exercises x 3 bilateral heel raises x 10 deep breathing exercises x 3 partial knee bends x 10 ASSESSMENT: Activity tolerance, strength, balance, and mobility level improved. Would continue to benefit from HH PT at [facility] to regain independent mobility level using his AD. PLAN: Continue with PT at [facility]. TREATMENT CODE/TIME: 42418 x 20 minutes for 1 unit, 54640 x 15 minutes for 1 unit (11:14-11:49).
[2025-05-16 11:35] VITALS: BP 131/80; PULSE 86; RESP 17; TEMP 36.5; O2SAT 93
[2025-05-16] MEDS: Insulin Aspart 300 UNITS/3 ML PEN SC (12:55)
--- NOTE | 2025-05-16 12:58 | DSE_ITS ---
Date of service: 05/16/25 Time of Service: 13:11 DS: Diagnosis Discharge Diagnosis (1) Acute respiratory failure with hypoxia and hypercarbia: Status: Acute (2) Congestive heart failure: Status: Chronic (3) CONCHITA (acute kidney injury): Status: Resolved (4) Pneumonia: (5) Essential hypertension: (6) Atrial fibrillation: (7) Chronic obstructive lung disease: (8) Diabetes mellitus: Discharge Plan Disposition Patient Disposition: Home Condition: Improving Discharge Details Reason For Visit: Acute Hypoxic and Hypercapnic Respiratory Failure, Admit Date/Time: 05/08/25 04:38 Admit Provider: Terrence Summers Attending Provider: Terrence Summers Primary Care Provider: David Zuleta Hospital Course Hospital Course: 74-year-old gentleman with moderate dementia, type 2 DM, former smoker, BMI >40, and chronic atrial fibrillation who resides at the [facility] and is independant at baseline presented 05/08 with sudden onset of respiratory distress. He was diuresed and treated for pneumonia with a course of ceftriaxone and azithromycin. He had some elevated RVSP and preserved LVEF on 05/09 echocardiogram. His respiratory status improved. He had CONCHITA on admission with creatinine of 1.6 that improved to 1.1 with diur esis. He was transitioned to 40mg oral torsemide as a diuretic. For his HFpEF he was prescribed SGLT2i empagliflozin 10mg at discharge. On follow up he may be able to reduce torsemide. His metoprolol was held with some lower blood pressures early in the admission. It was restarted at half the dose 50mg at discharge. Losartan was reduce when his BP was low to 50mg but resumed at 100mg at discharge. He was seen by pulmonology. ABG confirmed chronic hypercarbic respiratory failure, likely related to obesity hypoventilation syndrome. Antibiotics were stopped after 3 days as there was not a clear infection. Home NIV was ordered prior to discharge but he will need follow up for teaching. He was tolerating BiPAP well here. He will follow up with pulmonology and should have PFTs as an outpaitent. His platelets were low, which is chronic. He has a high AST/ALT ratio and should be evaluated for hepatic cirrhosis as he is at risk for MASLD. He should avoid alcohol. He had general weakness and worked with physical therapy and was walking with a walker. He should continue outpatient physical therapy. He should follow up with PCP in 1 week and pulmonology clinic next available Recommendations for Follow Up Recommended tests to be ordered by follow up provider: He should have BMP/Magnesium levels in 1 week Home Meds and New Rx's Prescriptions: New torsemide 20 mg Tablet 40 mg PO DAILY Qty: 60 0RF empagliflozin 10 mg tablet 10 mg PO DAILY Qty: 30 0RF Continued trazodone 100 mg tablet 100 mg PO QHS Qty: 90 3RF vitamin E mixed 400 unit capsule 400 unit PO BID Rx Instructions: with meals per Cottage discharge pravastatin 40 mg tablet 40 mg PO DAILY Qty: 90 3RF ergocalciferol (vitamin D2) 1,250 mcg (50,000 unit) capsule 1,250 mcg PO QWEEK Qty: 90 3RF Patient Comments: qweek friday pregabalin [Lyrica] 100 mg capsule 100 mg PO TID Qty: 270 1RF Xarelto 20 mg tablet 20 mg PO DAILY Qty: 90 3RF Rx Instructions: must administer with evening meal levothyroxine [Synthroid] 25 mcg tablet 25 mcg PO DAILY Qty: 90 3RF duloxetine 60 mg capsule,delayed release(DR/EC) 60 mg PO BID Qty: 180 3RF cyanocobalamin (vitamin B-12) 1,000 mcg capsule 1,000 mcg PO DAILY Qty: 90 3RF mirabegron [Myrbetriq] 25 mg tablet extended release 24 hr 25 mg PO DAILY Qty: 90 3RF donepezil 10 mg tablet 10 mg PO QHS Qty: 90 3RF memantine 10 mg tablet 10 mg PO BID Qty: 180 3RF ropinirole 0.25 mg tablet 0.25 mg PO TID Qty: 270 3RF Trulicity 4.5 mg/0.5 mL pen injector 4.5 mg SUBCUT .weekly Rx Instructions: SATURDAYS Refresh Relieva 0.5-0.9 % drops 1 drp ophthalmic (eye) TID Patient Comments: Instill 1 drop into both eyes three times a day OcuSoft Lid Scrub Plus Pads, Medicated 1 pad TOPICAL DAILY AM Patient Comments: Apply 1 pad to BOTH EYELIDS very morning olopatadine 0.2 % drops 1 drp ophthalmic (eye) DAILY Patient Comments: Instill 1 drop into both eyes every morning losartan 100 mg tablet 100 mg PO DAILY Changed metoprolol succinate 100 mg tablet extended release 24 hr 50 mg PO DAILY Qty: 90 3RF Discharge Instructions Instructions: Heart Failure, Adult (DC) Additional Instructions: Continue the diuretic for now, monitor your weight, blood pressure, pulse, and leg swelling The breathing machine for the night time was ordered and you should follow up with the pulmonology team to start this. Stand Alone Forms: Portal Information, Nursing Discharge Form Referrals: David Zuleta [employer] ST[employer]AGE MANAGER [Primary Care Provider, Medicine] Referral Note: Your PCP will call to set up a follow up appointment. If you do not hear from them please give them a call. Activity:: Activity as Tolerated Equipment/Supplies:: home BiPAP on order Diet:: As Tolerated Discharge Orders Discharge Orders: Discharge Order (Routine); Ordered 05/16/25 Ordered By: Best Nicholson DS: Summary Time Spent with Patient providing and/or coordinating discharge services: Greater than 30 minutes Status at Discharge Functional status at discharge: uses cane/walker Overall status at discharge: patient is back to baseline Mental Status: mental status grossly normal Speech and Movement: speech and movement normal Mood: congruent mood Affect: normal affect Quality:SDOH Health Related Social Needs: Health related social needs lonely/isolated Health related social needs details n/a Health related social needs details: n/a Exam Narrative Exam Narrative: General: A&O, pleasant, in no distress CV: irregular rate and irregular rhythm, no murmur Resp: On room air, diffusely diminished breath sounds bilaterally but symmetric, no wheeze, slight bibasilar rales that clear with deep inspiration, normal effort Abd: soft, NTND ext: trace ankle edema, not tender, warm. Neuro: awake, alert, no focal deficits Psych Mental Status: mental status grossly normal Speech and Movement: speech and movement normal Mood: congruent mood Affect: normal affect DS: Data Vitals/I&O Vitals and I&O: Vital Signs Temperature 36.5 C 05/16/25 11:35 Temperature Source Temporal Artery Scan 05/16/25 11:35 Pulse 86 05/16/25 11:35 Pulse 102 H 05/11/25 16:55 Respiratory Rate 17 05/16/25 11:35 Respiratory Effort Short of Breath, Incrsd Work of Breathing 05/08/25 06:26 Respiratory Depth Shallow 05/08/25 06:26 Respiratory Pattern Normal 05/08/25 06:26 Blood Pressure 131/80 05/16/25 11:35 Blood Pressure Mean 97 05/16/25 11:35 Blood Pressure Position Sitting 05/08/25 00:50 Pulse Oximetry 93 05/16/25 11:35 Oxygen Delivery Method Room Air 05/16/25 11:35 Oxygen Flow Rate 0 05/16/25 11:35 Fraction of Inspired Oxygen (FIO2) 30 05/16/25 05:35 Pain Level 0 05/16/25 11:35 Comment Bipap settings: 18/6 FIO2 40%, RR 16 05/09/25 07:27 Intake & Output 05/15/25 05/16/25 05/16/25 23:59 11:59 23:59 Intake Total 1080 / 1560 Balance 1080 / 1560 Intake: Oral 1080 / 1560 Other: Urine Color Yellow Yellow Urine Appearance Clear Clear Urine Odor Normal Normal Comment Large incontinence episodes prior to getting on the toilet. Stool Size Moderate Small Stool Characteristics Soft Soft Formed Brown Data Completed and Pending Pending Labs at Discharge: 05/08/25 05/08/25 05/08/25 00:30 00:45 00:55 WBC 7.91 RBC 4.91 Hgb 14.7 Hct 50.1 H MCV 102 H MCH 29.9 MCHC 29.3 L RDW 14.2 H Plt Count 122 L MPV 12.1 H Immature Gran % 0.5 Neutrophils % 76.2 Lymphocytes % 13.0 Monocytes % 7.3 Eosinophils % 2.7 Basophils % 0.3 Nucleated RBC % 0.0 Absolute Neutrophils 6.03 Absolute Lymphocytes 1.03 L Absolute Monocytes 0.58 Absolute Eosinophils 0.21 Absolute Basophils 0.02 PT INR D-Dimer ABG Sample Site ABG pH ABG pCO2 ABG pO2 ABG HCO3 ABG Total CO2 ABG O2 Saturation ABG Base Excess VBG pH 7.22 L Cancelled VBG pCO2 88 H* Cancelled VBG pO2 83 Cancelled VBG HCO3 37 H Cancelled VBG Total CO2 39 H Cancelled VBG O2 Saturation 93 Cancelled VBG Base Excess 9 H Cancelled VBG Lactate 1.1 Cancelled Oxygen Liter Flow Sodium Potassium Chloride Carbon Dioxide Anion Gap BUN Creatinine Est GFR (CKD-EPI 2020) Glucose Calcium Magnesium Total Bilirubin AST ALT Alkaline Phosphatase Troponin I NT-Pro-B Natriuret Pep Total Protein Albumin TSH Urine Color Urine Clarity Urine pH Ur Specific [place] Urine Protein Urine Ketones Urine Blood Urine Nitrite Urine Bilirubin Urine Urobilinogen Ur Leukocyte Esterase Urine RBC Urine WBC Ur Epithelial Cells Urine Crystals Urine Bacteria Urine Casts Urine Mucus Ur Culture Indicated? Urine Glucose COVID-19 Source SARS-CoV-2 (PCR) Influenza Type A (PCR) Influenza Type B (PCR) RSV (PCR) Add-On Test Request 05/08/25 05/08/25 05/08/25 01:23 01:25 02:20 WBC RBC Hgb Hct MCV MCH MCHC RDW Plt Count MPV Immature Gran % Neutrophils % Lymphocytes % Monocytes % Eosinophils % Basophils % Nucleated RBC % Absolute Neutrophils Absolute Lymphocytes Absolute Monocytes Absolute Eosinophils Absolute Basophils PT INR D-Dimer 413 ABG Sample Site ABG pH ABG pCO2 ABG pO2 ABG HCO3 ABG Total CO2 ABG O2 Saturation ABG Base Excess VBG pH 7.25 L VBG pCO2 78 H* VBG pO2 58 VBG HCO3 34 H VBG Total CO2 31 H VBG O2 Saturation 86 VBG Base Excess 7 H VBG Lactate Oxygen Liter Flow Sodium 143 Potassium 5.2 H Chloride 104 Carbon Dioxide 35.9 H Anion Gap 3.1 BUN 37 H Creatinine 1.64 H Est GFR (CKD-EPI 2020) 40.99 Glucose 183 H Calcium 8.5 Magnesium 2.2 Total Bilirubin 0.5 AST 13 ALT 7 L Alkaline Phosphatase 101 Troponin I 17 15 NT-Pro-B Natriuret Pep 1442 H Total Protein 7.7 Albumin 4.5 TSH 2.81 Urine Color Urine Clarity Urine pH Ur Specific [place] Urine Protein Urine Ketones Urine Blood Urine Nitrite Urine Bilirubin Urine Urobilinogen Ur Leukocyte Esterase Urine RBC Urine WBC Ur Epithelial Cells Urine Crystals Urine Bacteria Urine Casts Urine Mucus Ur Culture Indicated? Urine Glucose COVID-19 Source Nasopharynx SARS-CoV-2 (PCR) Negative Influenza Type A (PCR) Negative Influenza Type B (PCR) Negative RSV (PCR) Negative Add-On Test Request 05/08/25 05/08/25 05/08/25 02:39 02:45 03:35 WBC RBC Hgb Hct MCV MCH MCHC RDW Plt Count MPV Immature Gran % Neutrophils % Lymphocytes % Monocytes % Eosinophils % Basophils % Nucleated RBC % Absolute Neutrophils Absolute Lymphocytes Absolute Monocytes Absolute Eosinophils Absolute Basophils PT INR D-Dimer ABG Sample Site ABG pH ABG pCO2 ABG pO2 ABG HCO3 ABG Total CO2 ABG O2 Saturation ABG Base Excess VBG pH Cancelled 7.22 L VBG pCO2 Cancelled 83 H* VBG pO2 Cancelled 34 VBG HCO3 Cancelled 34 H VBG Total CO2 Cancelled 32 H VBG O2 Saturation Cancelled 54 VBG Base Excess Cancelled 6 H VBG Lactate Oxygen Liter Flow Sodium Potassium 5.0 Chloride Carbon Dioxide Anion Gap BUN Creatinine Est GFR (CKD-EPI 2020) Glucose Calcium Magnesium Total Bilirubin AST ALT Alkaline Phosphatase Troponin I NT-Pro-B Natriuret Pep Total Protein Albumin TSH Urine Color Yellow Urine Clarity Clear Urine pH 5.5 Ur Specific [place] 1.020 Urine Protein 30 H Urine Ketones Negative Urine Blood Trace-intact H Urine Nitrite Negative Urine Bilirubin Negative Urine Urobilinogen 0.2 Ur Leukocyte Esterase Negative Urine RBC 3-5 H Urine WBC Negative Ur Epithelial Cells Negative Urine Crystals Negative Urine Bacteria Rare Urine Casts Negative Urine Mucus Negative Ur Culture Indicated? No Urine Glucose Negative COVID-19 Source SARS-CoV-2 (PCR) Influenza Type A (PCR) Influenza Type B (PCR) RSV (PCR) Add-On Test Request 05/08/25 05/08/25 05/08/25 03:45 03:46 04:38 WBC RBC Hgb Hct MCV MCH MCHC RDW Plt Count MPV Immature Gran % Neutrophils % Lymphocytes % Monocytes % Eosinophils % Basophils % Nucleated RBC % Absolute Neutrophils Absolute Lymphocytes Absolute Monocytes Absolute Eosinophils Absolute Basophils PT INR D-Dimer ABG Sample Site ABG pH ABG pCO2 ABG pO2 ABG HCO3 ABG Total CO2 ABG O2 Saturation ABG Base Excess VBG pH Cancelled 7.23 L VBG pCO2 Cancelled 88 H* VBG pO2 Cancelled 28 VBG HCO3 Cancelled 37 H VBG Total CO2 Cancelled 34 H VBG O2 Saturation Cancelled 43 VBG Base Excess Cancelled 10 H VBG Lactate Oxygen Liter Flow Sodium Potassium Chloride Carbon Dioxide Anion Gap BUN Creatinine Est GFR (CKD-EPI 2020) Glucose Calcium Magnesium Total Bilirubin AST ALT Alkaline Phosphatase Troponin I 17 NT-Pro-B Natriuret Pep Total Protein Albumin TSH Urine Color Urine Clarity Urine pH Ur Specific [place] Urine Protein Urine Ketones Urine Blood Urine Nitrite Urine Bilirubin Urine Urobilinogen Ur Leukocyte Esterase Urine RBC Urine WBC Ur Epithelial Cells Urine Crystals Urine Bacteria Urine Casts Urine Mucus Ur Culture Indicated? Urine Glucose COVID-19 Source SARS-CoV-2 (PCR) Influenza Type A (PCR) Influenza Type B (PCR) RSV (PCR) Add-On Test Request Cancelled 05/08/25 05/08/25 05/08/25 04:45 05:45 05:47 WBC RBC Hgb Hct MCV MCH MCHC RDW Plt Count MPV Immature Gran % Neutrophils % Lymphocytes % Monocytes % Eosinophils % Basophils % Nucleated RBC % Absolute Neutrophils Absolute Lymphocytes Absolute Monocytes Absolute Eosinophils Absolute Basophils PT INR D-Dimer ABG Sample Site ABG pH ABG pCO2 ABG pO2 ABG HCO3 ABG Total CO2 ABG O2 Saturation ABG Base Excess VBG pH Cancelled Cancelled 7.28 L VBG pCO2 Cancelled Cancelled 80 H* VBG pO2 Cancelled Cancelled 27 VBG HCO3 Cancelled Cancelled 38 H VBG Total CO2 Cancelled Cancelled 35 H VBG O2 Saturation Cancelled Cancelled 44 VBG Base Excess Cancelled Cancelled 11 H VBG Lactate Oxygen Liter Flow Sodium Potassium Chloride Carbon Dioxide Anion Gap BUN Creatinine Est GFR (CKD-EPI 2020) Glucose Calcium Magnesium Total Bilirubin AST ALT Alkaline Phosphatase Troponin I NT-Pro-B Natriuret Pep Total Protein Albumin TSH Urine Color Urine Clarity Urine pH Ur Specific [place] Urine Protein Urine Ketones Urine Blood Urine Nitrite Urine Bilirubin Urine Urobilinogen Ur Leukocyte Esterase Urine RBC Urine WBC Ur Epithelial Cells Urine Crystals Urine Bacteria Urine Casts Urine Mucus Ur Culture Indicated? Urine Glucose COVID-19 Source SARS-CoV-2 (PCR) Influenza Type A (PCR) Influenza Type B (PCR) RSV (PCR) Add-On Test Request 05/08/25 05/08/25 05/08/25 06:30 06:45 06:57 WBC RBC Hgb Hct MCV MCH MCHC RDW Plt Count MPV Immature Gran % Neutrophils % Lymphocytes % Monocytes % Eosinophils % Basophils % Nucleated RBC % Absolute Neutrophils Absolute Lymphocytes Absolute Monocytes Absolute Eosinophils Absolute Basophils PT INR D-Dimer ABG Sample Site ABG pH ABG pCO2 ABG pO2 ABG HCO3 ABG Total CO2 ABG O2 Saturation ABG Base Excess VBG pH Cancelled Cancelled 7.35 VBG pCO2 Cancelled Cancelled 66 H* VBG pO2 Cancelled Cancelled 43 VBG HCO3 Cancelled Cancelled 36 H VBG Total CO2 Cancelled Cancelled 32 H VBG O2 Saturation Cancelled Cancelled 78 VBG Base Excess Cancelled Cancelled 11 H VBG Lactate Oxygen Liter Flow Sodium Potassium Chloride Carbon Dioxide Anion Gap BUN Creatinine Est GFR (CKD-EPI 2020) Glucose Calcium Magnesium Total Bilirubin AST ALT Alkaline Phosphatase Troponin I NT-Pro-B Natriuret Pep Total Protein Albumin TSH Urine Color Urine Clarity Urine pH Ur Specific [place] Urine Protein Urine Ketones Urine Blood Urine Nitrite Urine Bilirubin Urine Urobilinogen Ur Leukocyte Esterase Urine RBC Urine WBC Ur Epithelial Cells Urine Crystals Urine Bacteria Urine Casts Urine Mucus Ur Culture Indicated? Urine Glucose COVID-19 Source SARS-CoV-2 (PCR) Influenza Type A (PCR) Influenza Type B (PCR) RSV (PCR) Add-On Test Request 05/08/25 05/08/25 05/08/25 07:45 08:45 09:45 WBC RBC Hgb Hct MCV MCH MCHC RDW Plt Count MPV Immature Gran % Neutrophils % Lymphocytes % Monocytes % Eosinophils % Basophils % Nucleated RBC % Absolute Neutrophils Absolute Lymphocytes Absolute Monocytes Absolute Eosinophils Absolute Basophils PT INR D-Dimer ABG Sample Site ABG pH ABG pCO2 ABG pO2 ABG HCO3 ABG Total CO2 ABG O2 Saturation ABG Base Excess VBG pH Cancelled Cancelled Cancelled VBG pCO2 Cancelled Cancelled Cancelled VBG pO2 Cancelled Cancelled Cancelled VBG HCO3 Cancelled Cancelled Cancelled VBG Total CO2 Cancelled Cancelled Cancelled VBG O2 Saturation Cancelled Cancelled Cancelled VBG Base Excess Cancelled Cancelled Cancelled VBG Lactate Oxygen Liter Flow Sodium Potassium Chloride Carbon Dioxide Anion Gap BUN Creatinine Est GFR (CKD-EPI 2020) Glucose Calcium Magnesium Total Bilirubin AST ALT Alkaline Phosphatase Troponin I NT-Pro-B Natriuret Pep Total Protein Albumin TSH Urine Color Urine Clarity Urine pH Ur Specific [place] Urine Protein Urine Ketones Urine Blood Urine Nitrite Urine Bilirubin Urine Urobilinogen Ur Leukocyte Esterase Urine RBC Urine WBC Ur Epithelial Cells Urine Crystals Urine Bacteria Urine Casts Urine Mucus Ur Culture Indicated? Urine Glucose COVID-19 Source SARS-CoV-2 (PCR) Influenza Type A (PCR) Influenza Type B (PCR) RSV (PCR) Add-On Test Request 05/08/25 05/08/25 05/08/25 10:45 10:47 11:45 WBC RBC Hgb Hct MCV MCH MCHC RDW Plt Count MPV Immature Gran % Neutrophils % Lymphocytes % Monocytes % Eosinophils % Basophils % Nucleated RBC % Absolute Neutrophils Absolute Lymphocytes Absolute Monocytes Absolute Eosinophils Absolute Basophils PT 17.1 H INR 1.8 H D-Dimer ABG Sample Site ABG pH ABG pCO2 ABG pO2 ABG HCO3 ABG Total CO2 ABG O2 Saturation ABG Base Excess VBG pH Cancelled 7.33 Cancelled VBG pCO2 Cancelled 68 H* Cancelled VBG pO2 Cancelled 36 Cancelled VBG HCO3 Cancelled 36 H Cancelled VBG Total CO2 Cancelled 32 H Cancelled VBG O2 Saturation Cancelled 66 Cancelled VBG Base Excess Cancelled 10 H Cancelled VBG Lactate Oxygen Liter Flow Sodium Potassium Chloride Carbon Dioxide Anion Gap BUN Creatinine Est GFR (CKD-EPI 2020) Glucose Calcium Magnesium Total Bilirubin AST ALT Alkaline Phosphatase Troponin I NT-Pro-B Natriuret Pep Total Protein Albumin TSH Urine Color Urine Clarity Urine pH Ur Specific [place] Urine Protein Urine Ketones Urine Blood Urine Nitrite Urine Bilirubin Urine Urobilinogen Ur Leukocyte Esterase Urine RBC Urine WBC Ur Epithelial Cells Urine Crystals Urine Bacteria Urine Casts Urine Mucus Ur Culture Indicated? Urine Glucose COVID-19 Source SARS-CoV-2 (PCR) Influenza Type A (PCR) Influenza Type B (PCR) RSV (PCR) Add-On Test Request 05/08/25 05/08/25 05/08/25 12:45 13:45 14:45 WBC RBC Hgb Hct MCV MCH MCHC RDW Plt Count MPV Immature Gran % Neutrophils % Lymphocytes % Monocytes % Eosinophils % Basophils % Nucleated RBC % Absolute Neutrophils Absolute Lymphocytes Absolute Monocytes Absolute Eosinophils Absolute Basophils PT INR D-Dimer ABG Sample Site ABG pH ABG pCO2 ABG pO2 ABG HCO3 ABG Total CO2 ABG O2 Saturation ABG Base Excess VBG pH Cancelled Cancelled Cancelled VBG pCO2 Cancelled Cancelled Cancelled VBG pO2 Cancelled Cancelled Cancelled VBG HCO3 Cancelled Cancelled Cancelled VBG Total CO2 Cancelled Cancelled Cancelled VBG O2 Saturation Cancelled Cancelled Cancelled VBG Base Excess Cancelled Cancelled Cancelled VBG Lactate Oxygen Liter Flow Sodium Potassium Chloride Carbon Dioxide Anion Gap BUN Creatinine Est GFR (CKD-EPI 2020) Glucose Calcium Magnesium Total Bilirubin AST ALT Alkaline Phosphatase Troponin I NT-Pro-B Natriuret Pep Total Protein Albumin TSH Urine Color Urine Clarity Urine pH Ur Specific [place] Urine Protein Urine Ketones Urine Blood Urine Nitrite Urine Bilirubin Urine Urobilinogen Ur Leukocyte Esterase Urine RBC Urine WBC Ur Epithelial Cells Urine Crystals Urine Bacteria Urine Casts Urine Mucus Ur Culture Indicated? Urine Glucose COVID-19 Source SARS-CoV-2 (PCR) Influenza Type A (PCR) Influenza Type B (PCR) RSV (PCR) Add-On Test Request 05/08/25 05/08/25 05/08/25 14:59 15:45 16:45 WBC RBC Hgb Hct MCV MCH MCHC RDW Plt Count MPV Immature Gran % Neutrophils % Lymphocytes % Monocytes % Eosinophils % Basophils % Nucleated RBC % Absolute Neutrophils Absolute Lymphocytes Absolute Monocytes Absolute Eosinophils Absolute Basophils PT INR D-Dimer ABG Sample Site ABG pH ABG pCO2 ABG pO2 ABG HCO3 ABG Total CO2 ABG O2 Saturation ABG Base Excess VBG pH 7.27 L Cancelled Cancelled VBG pCO2 79 H* Cancelled Cancelled VBG pO2 38 Cancelled Cancelled VBG HCO3 36 H Cancelled Cancelled VBG Total CO2 33 H Cancelled Cancelled VBG O2 Saturation 66 Cancelled Cancelled VBG Base Excess 10 H Cancelled Cancelled VBG Lactate Oxygen Liter Flow Sodium Potassium Chloride Carbon Dioxide Anion Gap BUN Creatinine Est GFR (CKD-EPI 2020) Glucose Calcium Magnesium Total Bilirubin AST ALT Alkaline Phosphatase Troponin I NT-Pro-B Natriuret Pep Total Protein Albumin TSH Urine Color Urine Clarity Urine pH Ur Specific [place] Urine Protein Urine Ketones Urine Blood Urine Nitrite Urine Bilirubin Urine Urobilinogen Ur Leukocyte Esterase Urine RBC Urine WBC Ur Epithelial Cells Urine Crystals Urine Bacteria Urine Casts Urine Mucus Ur Culture Indicated? Urine Glucose COVID-19 Source SARS-CoV-2 (PCR) Influenza Type A (PCR) Influenza Type B (PCR) RSV (PCR) Add-On Test Request 05/08/25 05/08/25 05/08/25 17:45 18:45 19:45 WBC RBC Hgb Hct MCV MCH MCHC RDW Plt Count MPV Immature Gran % Neutrophils % Lymphocytes % Monocytes % Eosinophils % Basophils % Nucleated RBC % Absolute Neutrophils Absolute Lymphocytes Absolute Monocytes Absolute Eosinophils Absolute Basophils PT INR D-Dimer ABG Sample Site ABG pH ABG pCO2 ABG pO2 ABG HCO3 ABG Total CO2 ABG O2 Saturation ABG Base Excess VBG pH Cancelled Cancelled Cancelled VBG pCO2 Cancelled Cancelled Cancelled VBG pO2 Cancelled Cancelled Cancelled VBG HCO3 Cancelled Cancelled Cancelled VBG Total CO2 Cancelled Cancelled Cancelled VBG O2 Saturation Cancelled Cancelled Cancelled VBG Base Excess Cancelled Cancelled Cancelled VBG Lactate Oxygen Liter Flow Sodium Potassium Chloride Carbon Dioxide Anion Gap BUN Creatinine Est GFR (CKD-EPI 2020) Glucose Calcium Magnesium Total Bilirubin AST ALT Alkaline Phosphatase Troponin I NT-Pro-B Natriuret Pep Total Protein Albumin TSH Urine Color Urine Clarity Urine pH Ur Specific [place] Urine Protein Urine Ketones Urine Blood Urine Nitrite Urine Bilirubin Urine Urobilinogen Ur Leukocyte Esterase Urine RBC Urine WBC Ur Epithelial Cells Urine Crystals Urine Bacteria Urine Casts Urine Mucus Ur Culture Indicated? Urine Glucose COVID-19 Source SARS-CoV-2 (PCR) Influenza Type A (PCR) Influenza Type B (PCR) RSV (PCR) Add-On Test Request 05/08/25 05/08/25 05/08/25 20:45 21:45 22:40 WBC RBC Hgb Hct MCV MCH MCHC RDW Plt Count MPV Immature Gran % Neutrophils % Lymphocytes % Monocytes % Eosinophils % Basophils % Nucleated RBC % Absolute Neutrophils Absolute Lymphocytes Absolute Monocytes Absolute Eosinophils Absolute Basophils PT INR D-Dimer ABG Sample Site ABG pH ABG pCO2 ABG pO2 ABG HCO3 ABG Total CO2 ABG O2 Saturation ABG Base Excess VBG pH Cancelled Cancelled 7.39 VBG pCO2 Cancelled Cancelled 55 H VBG pO2 Cancelled Cancelled 40 VBG HCO3 Cancelled Cancelled 33 H VBG Total CO2 Cancelled Cancelled 30 H VBG O2 Saturation Cancelled Cancelled 79 VBG Base Excess Cancelled Cancelled 8 H VBG Lactate Oxygen Liter Flow Sodium Potassium Chloride Carbon Dioxide Anion Gap BUN Creatinine Est GFR (CKD-EPI 2020) Glucose Calcium Magnesium Total Bilirubin AST ALT Alkaline Phosphatase Troponin I NT-Pro-B Natriuret Pep Total Protein Albumin TSH Urine Color Urine Clarity Urine pH Ur Specific [place] Urine Protein Urine Ketones Urine Blood Urine Nitrite Urine Bilirubin Urine Urobilinogen Ur Leukocyte Esterase Urine RBC Urine WBC Ur Epithelial Cells Urine Crystals Urine Bacteria Urine Casts Urine Mucus Ur Culture Indicated? Urine Glucose COVID-19 Source SARS-CoV-2 (PCR) Influenza Type A (PCR) Influenza Type B (PCR) RSV (PCR) Add-On Test Request 05/08/25 05/08/25 05/09/25 22:45 23:45 05:40 WBC 8.17 RBC 4.67 Hgb 14.3 Hct 47.6 MCV 102 H MCH 30.6 MCHC 30.0 L RDW 14.1 Plt Count 106 L MPV 11.5 H Immature Gran % Neutrophils % Lymphocytes % Monocytes % Eosinophils % Basophils % Nucleated RBC % Absolute Neutrophils Absolute Lymphocytes Absolute Monocytes Absolute Eosinophils Absolute Basophils PT INR D-Dimer ABG Sample Site ABG pH ABG pCO2 ABG pO2 ABG HCO3 ABG Total CO2 ABG O2 Saturation ABG Base Excess VBG pH Cancelled Cancelled VBG pCO2 Cancelled Cancelled VBG pO2 Cancelled Cancelled VBG HCO3 Cancelled Cancelled VBG Total CO2 Cancelled Cancelled VBG O2 Saturation Cancelled Cancelled VBG Base Excess Cancelled Cancelled VBG Lactate Oxygen Liter Flow Sodium 140 Potassium 4.5 Chloride 97 L Carbon Dioxide 38.0 H Anion Gap 4.7 BUN 37 H Creatinine 1.37 H Est GFR (CKD-EPI 2020) 50.44 Glucose 117 H Calcium 8.0 L Magnesium 1.9 Total Bilirubin 0.6 AST 18 ALT < 7 L Alkaline Phosphatase 82 Troponin I NT-Pro-B Natriuret Pep Total Protein 6.5 Albumin 3.8 TSH Urine Color Urine Clarity Urine pH Ur Specific [place] Urine Protein Urine Ketones Urine Blood Urine Nitrite Urine Bilirubin Urine Urobilinogen Ur Leukocyte Esterase Urine RBC Urine WBC Ur Epithelial Cells Urine Crystals Urine Bacteria Urine Casts Urine Mucus Ur Culture Indicated? Urine Glucose COVID-19 Source SARS-CoV-2 (PCR) Influenza Type A (PCR) Influenza Type B (PCR) RSV (PCR) Add-On Test Request 05/09/25 05/09/25 05/10/25 07:53 08:52 05:20 WBC 8.59 RBC 4.54 Hgb 13.6 Hct 44.6 MCV 98 H D MCH 30.0 MCHC 30.5 L RDW 13.8 Plt Count 91 L MPV 12.4 H Immature Gran % Neutrophils % Lymphocytes % Monocytes % Eosinophils % Basophils % Nucleated RBC % Absolute Neutrophils Absolute Lymphocytes Absolute Monocytes Absolute Eosinophils Absolute Basophils PT INR D-Dimer ABG Sample Site Right Radial ABG pH 7.31 L ABG pCO2 72 H* ABG pO2 62 L ABG HCO3 37 H ABG Total CO2 33 H ABG O2 Saturation 92 L ABG Base Excess 10 H VBG pH 7.24 L VBG pCO2 92 H* VBG pO2 24 VBG HCO3 39 H VBG Total CO2 36 H VBG O2 Saturation 35 VBG Base Excess 12 H VBG Lactate Oxygen Liter Flow 4 Sodium 138 Potassium 4.4 Chloride 96 L Carbon Dioxide 35.5 H Anion Gap 6.6 BUN 39 H Creatinine 1.27 H Est GFR (CKD-EPI 2020) 55.05 Glucose 110 H Calcium 8.8 Magnesium 1.9 Total Bilirubin 0.7 AST 19 ALT < 7 L Alkaline Phosphatase 86 Troponin I NT-Pro-B Natriuret Pep Total Protein 6.4 Albumin 3.9 TSH Urine Color Urine Clarity Urine pH Ur Specific [place] Urine Protein Urine Ketones Urine Blood Urine Nitrite Urine Bilirubin Urine Urobilinogen Ur Leukocyte Esterase Urine RBC Urine WBC Ur Epithelial Cells Urine Crystals Urine Bacteria Urine Casts Urine Mucus Ur Culture Indicated? Urine Glucose COVID-19 Source SARS-CoV-2 (PCR) Influenza Type A (PCR) Influenza Type B (PCR) RSV (PCR) Add-On Test Request 05/11/25 05/12/25 05/14/25 05:45 05:35 05:36 WBC 7.81 7.18 RBC 4.44 4.47 Hgb 13.4 L 13.4 L Hct 43.3 43.8 MCV 98 H 98 H MCH 30.2 30.0 MCHC 30.9 L 30.6 L RDW 14.0 14.1 Plt Count 102 L 105 L MPV 12.0 H 12.1 H Immature Gran % Neutrophils % Lymphocytes % Monocytes % Eosinophils % Basophils % Nucleated RBC % Absolute Neutrophils Absolute Lymphocytes Absolute Monocytes Absolute Eosinophils Absolute Basophils PT INR D-Dimer ABG Sample Site ABG pH ABG pCO2 ABG pO2 ABG HCO3 ABG Total CO2 ABG O2 Saturation ABG Base Excess VBG pH 7.39 VBG pCO2 66 H* VBG pO2 31 VBG HCO3 40 H VBG Total CO2 36 H VBG O2 Saturation VBG Base Excess 15 H VBG Lactate Oxygen Liter Flow Sodium 138 139 139 Potassium 4.6 5.1 4.1 D Chloride 96 L 96 L 97 L Carbon Dioxide 36.7 H 37.6 H 34.2 H Anion Gap 4.8 4.9 8.2 BUN 34 H 32 H 31 H Creatinine 1.09 1.08 1.12 Est GFR (CKD-EPI 2020) 65.67 71.12 63.64 Glucose 117 H 121 H 125 H Calcium 8.8 8.8 9.0 Magnesium 1.8 2.0 2.0 Total Bilirubin 0.7 AST 26 ALT 9 L Alkaline Phosphatase 80 Troponin I NT-Pro-B Natriuret Pep Total Protein 6.7 Albumin 3.9 TSH Urine Color Urine Clarity Urine pH Ur Specific [place] Urine Protein Urine Ketones Urine Blood Urine Nitrite Urine Bilirubin Urine Urobilinogen Ur Leukocyte Esterase Urine RBC Urine WBC Ur Epithelial Cells Urine Crystals Urine Bacteria Urine Casts Urine Mucus Ur Culture Indicated? Urine Glucose COVID-19 Source SARS-CoV-2 (PCR) Influenza Type A (PCR) Influenza Type B (PCR) RSV (PCR) Add-On Test Request 05/16/25 06:17 WBC RBC Hgb Hct MCV MCH MCHC RDW Plt Count MPV Immature Gran % Neutrophils % Lymphocytes % Monocytes % Eosinophils % Basophils % Nucleated RBC % Absolute Neutrophils Absolute Lymphocytes Absolute Monocytes Absolute Eosinophils Absolute Basophils PT INR D-Dimer ABG Sample Site ABG pH ABG pCO2 ABG pO2 ABG HCO3 ABG Total CO2 ABG O2 Saturation ABG Base Excess VBG pH VBG pCO2 VBG pO2 VBG HCO3 VBG Total CO2 VBG O2 Saturation VBG Base Excess VBG Lactate Oxygen Liter Flow Sodium 140 Potassium 4.1 Chloride 99 Carbon Dioxide 35.3 H Anion Gap 5.3 BUN 28 H Creatinine 1.05 Est GFR (CKD-EPI 2020) 68.56 Glucose 121 H Calcium 8.5 Magnesium Total Bilirubin AST ALT Alkaline Phosphatase Troponin I NT-Pro-B Natriuret Pep Total Protein Albumin TSH Urine Color Urine Clarity Urine pH Ur Specific [place] Urine Protein Urine Ketones Urine Blood Urine Nitrite Urine Bilirubin Urine Urobilinogen Ur Leukocyte Esterase Urine RBC Urine WBC Ur Epithelial Cells Urine Crystals Urine Bacteria Urine Casts Urine Mucus Ur Culture Indicated? Urine Glucose COVID-19 Source SARS-CoV-2 (PCR) Influenza Type A (PCR) Influenza Type B (PCR) RSV (PCR) Add-On Test Request PFSH All Active Problems (Updated 05/12/25 @ 20:11 by Koby Quintero MD) Acute and chronic respiratory failure with hypercapnia (Acute) Pulmonary edema (Acute) Obesity hypoventilation syndrome (Acute) Depression (Chronic) Acute respiratory failure with hypoxia and hypercarbia (Acute) Altered mental status (Acute) Congestive heart failure (Chronic) Acute hypoxic respiratory failure (Acute) Urinary incontinence (Acute) Alzheimer dementia (Chronic) Urinary incontinence, urge (Acute) Gait instability (Acute) PLMD (periodic limb movement disorder) (Chronic) Advanced care planning/counseling discussion (Acute) Goals of care, counseling/discussion (Acute) Gait abnormality (Acute) Hypothyroidism (Chronic) Pain in soft tissues of limb (Acute) Other hammer toe (acquired) (Acute) Corns and callosities (Acute) Acute cognitive decline (Acute) Cold sensation of skin (Acute) Neuropathy (Chronic) Open wound of right heel (Acute) Followed by [facility] Hemorrhoids (Acute) Anticoagulated on warfarin (Acute) A-fib; goal 2-3 Complete edentulism, unspecified (Acute) Obesity (Acute) Peripheral neuralgia (Acute) of feet; idiopathic; multiple neuro w/u's; 2 brothers and mother with similar issue...likely genetic origin multiple neuro consults. See 2013 Dr Garcia. Polyp of colon (Acute 06/25/08) Sexual function problem (Acute) Chronic pain syndrome (Chronic) No longer taking MS and no longer on contract. 12/10/16 RENEWAL OF CONTROLLED SUBSTANCE AGREEMENT 04/2021-updated agreement/VPMS query and drug screen Medical History (Updated 05/12/25 @ 20:11 by Koby Quintero MD) Acute hypercapnic respiratory failure Palliative care encounter Cognitive decline Supratherapeutic INR Pneumonia Anxiety Atrial fibrillation beginning in 2002, it was initially paroxysmal and cardioverted. It is now chronic. On warfarin Chronic obstructive lung disease Hyperlipidemia Essential hypertension (03/16/13) Diabetes mellitus Surgical History Hx of cataract surgery Hx of colonoscopy Repair of inguinal hernia (~1975) right CARDIOVERSION (~2002) Family History Mother Stroke Father Heart disease Brother Diabetes Brother No problems noted. Maternal Grandfather No problems noted. Paternal Grandfather No problems noted. Maternal Grandmother No problems noted. Son Hypertension Daughter Depression Social History Smoking/Tobacco Use Status: Former Tobacco Use tobacco type: cigarettes Quit Date: 05/26/08 Second Hand Exposure: Yes Smoking risk assessment performed?: Yes Alcohol Intake: current Alcohol Intake frequency: a few times a week Alcohol type: beer Drug use: Occasionally Substance use type: marijuana Details: pt stated to MD no use of tobacco, alcohol, or substance use Caregiver/Support person: No Household members: children Housing: assisted living facility Communication Needs: None Do you need help understanding health information?: Always Pets and animals: No Sexually active: No Do you think of yourself as: straight/heterosexual Current gender identity: male What is your relationship status?: How often do you talk on the phone with friends or family?: twice per week How often do you get together with friends or relatives?: three or more times per week How often do you attend oriental orthodox or congregation services?: decline to answer Do you belong to any clubs or organized social groups?: yes Panel score (0-1 are the most socially isolated patients): 2 What type of physical activity do you participate in: none Duration: 15-30 minutes/day Frequency: daily Khalida/Yazdanism: No preference Special khalida needs: No Seatbelt use: always Helmet use: Yes Helmet use: always Drive intox or ride w/intox inventory associate and driver: No Do you feel safe at home: Yes Do you feel safe in your relationship?: Yes Victim of physical abuse: No Victim of emotional abuse: No Victim of sexual abuse: No Would you like helpful sources: No Time Spent with Patient Time Spent with Patient: 45-69 minutes Time was spent: preparing to see the patient(eg.review tests), obtaining and/or reviewing separately otained hiistory, ordering medications,tests, procedures, referring, communicating with other health health care assistant, indepentently interpreting results, counseling the patient and care coordination
--- NOTE | 2025-05-16 14:32 | CMDISCH_ITS ---
Date of service: 05/16/25 Time of Service: 14:32 LACE Index Scoring Tool Questions: Length of Stay (in days): 7 - 13 Was the patient admitted via the E.D.?: Yes Comorbidities: Diabetes w/o Complication, Congestive Heart Failure, Chronic Pulmonary Disease and Dementia E.D. Visits: 1 Answers: Total Score: 14 Risk of Readmission: High Risk Care Management Discharge Plan Reason for Hospitalization: acute respiratory failure Discharge Plan: Venkata was discharged home today with no new home care orders. He will be started on home bipap, and this will be delivered to the [facility] this evening. Venkata, his son Juni, and Nora at the [facility] are all aware of this plan. Venkata will f/u with his PCP and with pulmonology and continue per his plan of care. Venkata was transported home by his son, Juni. Patient/Family Education Needs: Review of discharge instructins, activity, limitations and discuss, Ask me 3. SDOH Health Related Social Needs: Health related social needs lonely/isolated Health related social needs details n/a Health related social needs details: n/a
== END 2025-05-16 13:56 | disposition home or self-care (01) | DRG 291 ==
LOC: ER 05:01 → ICU 05:58 → MS 05-11 18:12
PROVIDERS: Family Medicine; Admitting Provider Family Medicine; Emergency Provider Student in an Organized Health Care Education/Training Program; PCP Nurse Practitioner Family; Responsible Provider Family Medicine; Visit Provider Family Medicine
DX: J96.01 Acute respiratory failure with hypoxia (principal); J96.22 Acute and chronic respiratory failure with hypercapnia; N17.9 Acute kidney failure, unspecified; E87.5 Hyperkalemia; J18.9 Pneumonia, unspecified organism; I48.19 Other persistent atrial fibrillation; G30.1 Alzheimer's disease with late onset; E11.42 Type 2 diabetes mellitus with diabetic polyneuropathy; F02.B0 Dementia in other diseases classified elsewhere, moderate, without behavioral disturbance, psychotic disturbance, mood disturbance, and anxiety; E03.9 Hypothyroidism, unspecified; G47.61 Periodic limb movement disorder; E66.2 Morbid (severe) obesity with alveolar hypoventilation; I11.0 Hypertensive heart disease with heart failure; J44.0 Chronic obstructive pulmonary disease with (acute) lower respiratory infection; I50.813 Acute on chronic right heart failure; Z87.891 Personal history of nicotine dependence; Z79.01 Long term (current) use of anticoagulants; W19.XXXA Unspecified fall, initial encounter; Z66 Do not resuscitate; F32.A Depression, unspecified; R32 Unspecified urinary incontinence; R26.89 Other abnormalities of gait and mobility; G89.4 Chronic pain syndrome; K08.109 Complete loss of teeth, unspecified cause, unspecified class; E78.5 Hyperlipidemia, unspecified; Z79.84 Long term (current) use of oral hypoglycemic drugs; S80.811A Abrasion, right lower leg, initial encounter; I27.81 Cor pulmonale (chronic); Z68.41 Body mass index [BMI] 40.0-44.9, adult
CPT/HCPCS: 00123; 36415; 36416; 51702; 80048; 80053; 82805; 82962; 85027; 87040; 87637; 93005; 94640; 94761; 96365; 96375; 96376; 97110; 97112; 97162; 97165; 97530; 99232; 99291; 36600; 70450; 71045; 81003; 81015; 83605; 83735; 83880; 84132; 84443; 84484; 85025; 85379; 85610; 93010; 93306; 94660; 94760; 99223; 99231; 99239; J0692; J0696; J1815; J1938; J2020; J2312; J2543; J3373; J7613; J7620

== ENCOUNTER → 2025-05-10 15:36 | Outpatient (BNVA) | payer MEDICARE, SELFPAY | PROVIDERS: PCP Nurse Practitioner Family; Referring Provider Nurse Practitioner Family; Visit Provider Internal Medicine Pulmonary Disease ==

== ENCOUNTER → 2025-05-11 13:15 | Outpatient (BNVA) | payer MEDICARE, SELFPAY | PROVIDERS: PCP Nurse Practitioner Family; Referring Provider Nurse Practitioner Family; Visit Provider Internal Medicine Pulmonary Disease ==